=== PATIENT | female | born 1990 | race Caucasian/White ===

== ENCOUNTER 2019-07-30 12:48 | Emergency (ER) | payer SELFPAY | END 2019-07-30 16:30 | disposition home or self-care (01) | PROVIDERS: Emergency Provider Physician Assistant; Visit Provider Physician Assistant | DX: J00 Acute nasopharyngitis [common cold] (principal); F17.210 Nicotine dependence, cigarettes, uncomplicated; I10 Essential (primary) hypertension; J45.909 Unspecified asthma, uncomplicated ==

== ENCOUNTER 2019-09-20 21:44 | Emergency (ER) | payer SELFPAY ==
[2019-09-20 21:50] VITALS: BP 139/88; PULSE 117; RESP 18; TEMP 37.4; O2SAT 96
--- NOTE | 2019-09-20 21:56 | XR_ITS ---
WS: [id number] XR chest 1V portable [id number] REASON FOR EXAM: fever FINDINGS: The heart and mediastinal interfaces are normal. The lung chamorro are well aerated. No pneumonia, pleural effusion, pulmonary edema, pneumothorax, or m ass effect. The hilum and apices are normal. No osseous abnormalities. XR/XR chest 1V portable [id number] IMPRESSION: No active cardiopulmonary changes.
--- NOTE | 2019-09-20 22:41 | ED_ITS ---
HPI - Fever General: Chief Complaint: Fever Stated Complaint: FEVER Time Seen by Provider: 09/20/19 21:54 History of Present Illness: HPI Narrative: Patient is a 29-year-old female comes into the ED with fever cough that started today. Patient denies any nasal drainage or congestion or sick contacts. She has a past medical history of asthma and also smokes. She says tonight she started getting the chills and then developed a fever and she took Tylenol to bring fever down. She does have some mild body aches after having the fever and chills tonight. Her cough is productive sputum is clear. She states that she has a chronic cough because of smoking cigarettes. Denies any hematuria dysuria, abdominal pain, nausea, vomiting, shortness of breath. Associated symptoms: Reports chills; Deny abdominal pain, back/flank pain, chest pain, diarrhea, dysuria, headache(s), nasal congestion, nausea or vomiting Review of Systems Const: Reports: fever, chills and body aches; Denies: fatigue Eyes: Denies: change in vision or eye discomfort ENMT: Denies: throat pain, painful swallowing, nasal discharge or nasal congestion Card: Denies: chest pain, palpitations, edema, swelling of feet/ankles, shortness of breath on exertion or shortness of breath when lying down Resp: Reports: productive cough; Denies: shortness of breath or non-productive cough GI: Denies: abdominal pain, nausea, vomiting, diarrhea, constipation or blood in stool : Denies: flank pain, painful urination or blood in urine Musc: Denies: neck pain, back pain or extremity swelling Skin/Breast: Denies: rash or new lesion Neuro: Denies: headache, numbness in extremities or weakness in extremities [facility] ED PFSH: Social History Smoking and tobacco status: current every day smoker Physical Exam Const: COMMON NORMALS: oriented x3 HENMT: COMMON NORMALS: normocephalic HEAD & SCALP: normocephalic MOUTH: oral and palatal mucosa normal THROAT: posterior oropharynx normal and uvula midline Neck/C-Spine: COMMON NORMALS: supple GENERAL: Yes normal visual inspection Resp: COMMON NORMALS: normal respiratory effort, no retractions and no use of accessory muscles AUSCULTATION: wheezes expiratory wheezes (all throughout lung chamorro bilaterally) and inspiratory wheezes (all throughout lung chamorro bilaterally) Cardio: COMMON NORMALS: regular rate, regular rhythm, S1 normal heart sound, S2 normal heart sound, no gallops, no clicks, no murmurs and peripheral pulses 2+ throughout RATE: regular rate RHYTHM: regular rhythm HEART SOUNDS: S1 normal and S2 normal PERIPHERAL PULSES: pulses 2+ throughout GI: COMMON NORMALS: normal to inspection, nondistended, normoactive bowel sounds, soft to palpation, non-tender and no masses PALPATION: Yes soft : COMMON NORMALS: Yes no CVA tenderness BLADDER/KIDNEY EXAM: Yes no CVA tenderness Back/Pelvis: COMMON NORMALS: no CVA tenderness Extremity: COMMON NORMALS: normal to inspection Neuro: COMMON NORMALS: oriented x3 and moves all extremities Skin: COMMON NORMALS: no rashes or lesions noted GENERAL SKIN EXAM: no rashes or lesions noted and dry skin Course ED course: After DuoNeb treatment patients lungs sounded much better. Most of the wheezing was completely gone. Patient says she feels a lot better as well after breathing treatment. Vital Signs: Vital signs: Vital Signs Temperature 99.3 F 09/20/19 21:50 Pulse Rate 98 09/21/19 00:04 Respiratory Rate 18 09/21/19 00:04 Blood Pressure 139/88 09/20/19 21:50 Pulse Oximetry 98 09/21/19 00:04 MDM - Fever Lab Data: Attestation: I reviewed the patient's lab results. Labs: Lab Results 09/20/19 Range/Units 22:32 Influenza Type A A g Negative (Negative) POC Influenza B Ag Negative (Negative) Imaging Data^: CXR: Attestation: I personally reviewed and interpreted this imaging study as follows: My impression: No acute findings. Pending radiology review. Discharge Plan Discharge Patient Disposition: Home, Self-Care Clinical Impression: Viral infection, Bilateral wheezing Condition: Stable Prescriptions: No Action albuterol sulfate 90 mcg/actuation Hfa Aerosol Inhaler INHALATION PRN (Reason: Shortness Of Breath) RF: 0 Discharge Orders: Discharge Order (Routine); Ordered 09/20/19 Ordered By: Bill Somers Discharge Diet: Regular Discharge Activity: Resume usual activity Patient Instructions: Reactive Airways Disease (ED) Activity Restrictions/Additional Instructions: Follow-up with your PCP in 7-10 days for reevaluation. Continue using her albuterol inhaler as needed for wheezing or respiratory distress. Take Tylenol or Motrin for fevers. Drink plenty of fluids and stay hydrated. Discuss with your PCP potentially putting you on a longer acting inhaler. Discharge Date/Time: 09/21/19 00:32 Coding Level of Care Code ED Bench Inspector for Ko Fwpritesh Exam Comprehensive
[2019-09-20 23:37] LABS: Influenza A by IFA Negative (Negative); Influenza B by IFA Negative (Negative)
[2019-09-21 00:04] VITALS: PULSE 98; RESP 18; O2SAT 98
[2019-09-21] MEDS: ipratropium-albuterol 3 mL Neb INHALATION (00:04)
== END 2019-09-21 00:32 | disposition home or self-care (01) ==
PROVIDERS: Emergency Provider Physician Assistant
DX: B34.9 Viral infection, unspecified (principal); R06.2 Wheezing; F17.210 Nicotine dependence, cigarettes, uncomplicated
CPT/HCPCS: 71045; 87804; 94640; 99281; 99283

== ENCOUNTER 2019-09-27 19:38 | Emergency (ER) | payer SELFPAY ==
[2019-09-27 19:54] VITALS: BP 165/81; PULSE 80; RESP 18; TEMP 36.9; BMI 37.8
[2019-09-27 19:56] VITALS: BP 165/81; PULSE 80; RESP 18; TEMP 36.9; O2SAT 99; BMI 37.8
--- NOTE | 2019-09-27 20:21 | ED_ITS ---
Entered by Janina Cristina, acting as scribe for Jessenia Hylton MD Sep 27, 2019 19:38 HPI - Asthma General: Chief Complaint: Asthma Stated Complaint: COUGH Time Seen by Provider: 09/27/19 20:20 Source: patient and RN notes reviewed Mode of arrival: ambulatory Limitations: no limitations History of Present Illness: HPI Narrative: 29 yo female presents to ED with complaints of a cough. She had a virus for several days and was seen 1 week ago. She said her coughing has been worse, causing her to have asthma attacks. complaint: asthma attack Onset (ago): week(s) (1) Severity: moderate Context: other (recent virus) Associated symptoms: Reports productive cough; Deny chest pain or fever(s) Asthma History: adult onset Treatments Prior to Arrival: inhaled bronchodilator Related Data: Current Asthma Therapy: inhaled bronchodilator Review of Systems Const: Denies: fever, chills, body aches or change in appetite Eyes: Denies: blurry vision or eye discomfort ENMT: Denies: throat pain or dental pain Card: Denies: chest pain Resp: Reports: productive cough GI: Denies: abdominal pain, nausea, vomiting or diarrhea : Denies: painful urination Musc: Denies: neck pain or back pain Skin/Breast: Denies: rash Neuro: Denies: headache Psych: Denies: depression Devonte/Lymph: Denies: easy bruising All/Imm: Denies: hives PFS ED PFSH: Social History Smoking and tobacco status: current every day smoker Physical Exam Const: COMMON NORMALS: no apparent distress, oriented x3 and healthy appearing HENMT: COMMON NORMALS: normocephalic and head/scalp atraumatic HEAD & SCALP: normocephalic and atraumatic Eye: COMMON NORMALS: PERRL and EOMs intact bilaterally PUPIL: Yes PERRL Neck/C-Spine: COMMON NORMALS: full ROM and supple Chest: COMMONS NORMALS: inspection of chest normal and palpation of chest normal Resp: COMMON NORMALS: normal respiratory effort, no retractions, no use of accessory muscles and clear to auscultation bilaterally EFFORT & INSPECTION: Yes audible wheezes (diffuse) AUSCULTATION: clear to auscultation bilaterally Cardio: COMMON NORMALS: regular rate, regular rhythm and no murmurs RATE: regular rate RHYTHM: regular rhythm GI: COMMON NORMALS: normal to inspection, nondistended, normoactive bowel sounds, soft to palpation, non-tender and no masses PALPATION: Yes soft Extremity: COMMON NORMALS: normal to inspection and full ROM Neuro: COMMON NORMALS: oriented x3, moves all extremities and no focal motor deficits Psych: COMMON NORMALS: mental status grossly normal, thought process normal and cooperative THOUGHT PROCESS: normal thought process Skin: COMMON NORMALS: no rashes or lesions noted and no wounds GENERAL SKIN EXAM: no rashes or lesions noted Course Vital Signs: Vital signs: Vital Signs Temperature 98.5 F 09/27/19 19:56 Pulse Rate 78 09/27/19 20:50 Respiratory Rate 18 09/27/19 20:45 Blood Pressure 165/81 09/27/19 19:56 Pulse Oximetry 99 09/27/19 20:50 MDM - Asthma MDM Narrative: Medical decision making narrative: Patient presents here with bronchitis along with likely asthma exacerbation. Patient's x-ray here shows no signs of pneumonia and she is in no distress. We will place her on steroids along with nebulizer treatments and antibiotics. Patient is stable for discharge and is to return if worsening. Discharge Plan Discharge Patient Disposition: Home, Self-Care Clinical Impression: Bronchitis Condition: Stable Prescriptions: New Keflex 500 mg capsule 500 mg PO Q6H 7 Days Qty: 28 RF: 0 prednisone 50 mg tablet 50 mg PO DAILY Qty: 5 RF: 0 albuterol sulfate 0.63 mg/3 mL solution for nebulization 0.63 mg INHALATION Q8H PRN (Reason: shortness of breath or wheezing) Qty: 90 RF: 1 No Action albuterol sulfate 90 mcg/actuation Hfa Aerosol Inhaler 1 inh INHALATION PRN PRN (Reason: Shortness Of Breath) RF: 0 Discharge Orders: Discharge Order (Routine); Ordered 09/27/19 Ordered By: Jesseina Hylton Discharge Diet: Advance as tolerated Discharge Activity: Resume usual activity Patient Instructions: Acute Bronchitis (ED) Discharge Date/Time: 09/27/19 21:02 Coding Level of Care Code ED Clearance Representative for Chg Fwd Exam Comprehensive The documentation recorded by the Ibeth chapa Valerie R accurately reflects the service I personally performed and the decisions made by me, Jessenia Hylton MD Sep 27, 2019 19:38
--- NOTE | 2019-09-27 20:26 | XRR_ITS ---
PROCEDURE INFORMATION: Exam: XR Chest, 1 View Exam date and time: 09/27/2019 8:27 PM Age: 29 years old Clinical indication: Pain; Cough; Other: Back TECHNIQUE: Imaging protocol: XR of the chest Views: 1 view. COMPARISON: CR XR chest 1V portable [id number] 09/20/2019 10:15 PM FINDINGS: Lungs: Unremarkable. No consolidation. Pleural space: Unremarkable. No pleural effusion. No pneumothorax. Heart/Mediastinum: Unremarkable. No cardiomegaly. Bones/joints: Unremarkable. XR/XR chest 1V portable [id number] IMPRESSION: No acute findings.
[2019-09-27 20:45] VITALS: PULSE 74; RESP 18; O2SAT 98
[2019-09-27] MEDS: ipratropium-albuterol 3 mL Neb INHALATION (20:46)
[2019-09-27 20:50] VITALS: PULSE 78; O2SAT 99
[2019-09-27] MEDS: predniSONE 20 mg Tablet 60 MG PO (20:52)
[2019-09-27 21:00] VITALS: BP 158/74; PULSE 80; RESP 18; O2SAT 97
== END 2019-09-27 21:02 | disposition home or self-care (01) ==
PROVIDERS: Emergency Provider Emergency Medicine
DX: J40 Bronchitis, not specified as acute or chronic (principal); F17.200 Nicotine dependence, unspecified, uncomplicated
CPT/HCPCS: 71045; 94640; 99281; 99283; J7512; J7611

== ENCOUNTER 2020-01-17 20:42 | Emergency (ER) | payer SELFPAY ==
[2020-01-17 20:50] VITALS: BP 136/87; PULSE 66; RESP 18; TEMP 36.7; O2SAT 98; BMI 37.8
== END 2020-01-17 22:13 | disposition left against medical advice (07) ==
LOC: ER 21:22
PROVIDERS: Emergency Provider Family Medicine
DX: Z53.21 Procedure and treatment not carried out due to patient leaving prior to being seen by health care provider (principal)
CPT/HCPCS: 99281

== ENCOUNTER 2020-04-29 11:36 | Emergency (ER) | payer OTHER, SELFPAY ==
[2020-04-29 12:00] VITALS: BP 144/104; PULSE 89; RESP 18; TEMP 36.7; O2SAT 98; BMI 42.9
--- NOTE | 2020-04-29 12:22 | XRR_ITS ---
PROCEDURE INFORMATION: Exam: XR Chest, 1 View Exam date and time: 04/29/2020 12:35 PM Age: 29 years old Clinical indication: Cough and dyspnea; Additional info: Dyspnea/cough TECHNIQUE: Imaging protocol: XR of the chest Views: 1 view. COMPARISON: CR XR chest 1V portable [id number] 09/27/2019 8:27 PM FINDINGS: Lungs: Unremarkable. No consolidation. Pleural space: Unremarkable. No pleural effusion. No pneumothorax. Heart/Mediastinum: Unremarkable. No cardiomegaly. Bones/joints: Unremarkable. Stable exam since prior study XR/XR chest 1V portable [id number] IMPRESSION: No acute findings.
[2020-04-29 12:42] LABS: Rapid Strep A Test Negative (Negative)
--- NOTE | 2020-04-29 12:58 | W.ED.FEVER ---
HPI - Fever General: Chief Complaint: Fever Stated Complaint: SORE THROAT Time Seen by Provider: 04/29/20 12:15 History of Present Illness: HPI Narrative: 29-year-old female presents complaining of sore throat. She said some nasal discharge. She not had any shortness of breath, fever, vomiting or diarrhea. MD elicited complaint: other (Sore throat) Exacerbating factors: nothing Relieving factors: nothing Associated symptoms: Deny abdominal pain, flank pain, chills, chest pain, confusion, cough, diarrhea, dysuria, extremity pain, headache(s), myalgias, nasal congestion, nausea, night sweats, rash, rhinorrhea, short of breath, sinus pain, stiffness, sore throat, vaginal discharge, vomiting or weight loss Treatments prior to arrival fever: none Review of Systems Const: Denies: chills or night sweats ENMT: Denies: nasal congestion or sinus pain Card: Denies: chest pain Resp: Denies: dyspnea, productive cough or non-productive cough GI: Denies: abdominal pain, nausea, vomiting or diarrhea : Denies: flank pain, dysuria or vaginal discharge Musc: Denies: extremity pain Skin/Breast: Denies: rash or pruritus Neuro: Denies: headache(s) or confusion PFSH ED PFSH: Social History Smoking and tobacco status: current every day smoker Female Reproductive History: Date of last menstrual period: 03/17/20 Physical Exam Const: COMMON NORMALS: no acute distress GENERAL APPEARANCE: cooperative and comfortable ORIENTATION/CONSCIOUSNESS: Yes awake, Yes oriented to person, Yes oriented to place and Yes oriented to time HENMT: COMMON NORMALS: normocephalic, atraumatic and hearing grossly normal bilaterally HEAD & SCALP: normocephalic and atraumatic Eye: COMMON NORMALS: Equal, round and reactive pupils present, EOMs intact bilaterally, conjunctivae normal and no scleral icterus CONJUNCTIVA: Yes conjunctivae normal PUPIL: Yes Equal, round and reactive pupils present Neck/C-Spine: COMMON NORMALS: full ROM, no lymphadenopathy, supple and no JVD Lymph: LYMPHATIC: no lymphadenopathy noted and no lymphedema noted Resp: COMMON NORMALS: normal respiratory effort, No retractions, No use of accessory muscles and clear to auscultation bilaterally AUSCULTATION: clear to auscultation bilaterally Cardio: COMMON NORMALS: no JVD, regular rate, regular rhythm and No murmurs present (Cardio) RATE: regular rate RHYTHM: regular rhythm GI: COMMON NORMALS: Soft to palpation and No hepatosplenomegaly present AUSCULTATION: Yes normoactive bowel sounds PALPATION: Yes Soft to palpation, No Tenderness to palpation present (GI), No Guarding due to palpation present (GI) and Yes No hepatosplenomegaly present Extremity: COMMON NORMALS: normal to inspection, capillary refill normal, no clubbing, cyanosis or edema, no calf tenderness and no pedal edema Neuro: SENSORIUM/ORIENTATION: Yes oriented to person, Yes oriented to place and Yes oriented to time Skin: COMMON NORMALS: no rashes or lesions noted GENERAL SKIN EXAM: no rashes or lesions noted Course Vital Signs: Vital signs: Vital Signs Temperature 98.0 F 04/29/20 12:00 Pulse Rate 89 04/29/20 12:00 Respiratory Rate 18 04/29/20 12:00 Blood Pressure 144/104 04/29/20 12:00 Pulse Oximetry 98 04/29/20 12:00 MDM - Fever MDM Narrative: Medical decision making narrative: Strep negative. Suspect viral upper respiratory infection she has been screened for COVID. We will discharge her home her vital signs are stable advised patient to remain in self quarantine until results are available. Lab Data: Labs: Lab Results 04/29/20 04/29/20 Range/Units 12:15 12:31 SARS-CoV-2 RNA (RT -PCR) Not detected (NOT DETECTED) Group A Strep Rapi d Negative (Negative) Discharge Plan Discharge Patient Disposition: Home Clinical Impression: Pharyngitis, Suspected COVID-19 virus infection Condition: Stable Prescriptions: New dexamethasone 6 mg tablet 6 mg PO DAILY Qty: 7 RF: 0 No Action albuterol sulfate 90 mcg/actuation Hfa Aerosol Inhaler 2 inh INHALATION Q4H PRN (Reason: Shortness Of Breath) RF: 0 albuterol sulfate 0.63 mg/3 mL solution for nebulization 0.63 mg INHALATION Q8H PRN (Reason: shortness of breath or wheezing) Qty: 90 RF: 1 Multiple Vitamins Tablet 1 tab PO DAILY RF: 0 Vitamin B-12 1 tab PO DAILY RF: 0 Vitamin C 1 tab PO DAILY RF: 0 Discharge Orders: Discharge Order (Routine); Ordered 04/29/20 Ordered By: Josias Guerra Discharge Diet: Usual diet Discharge Activity: Increase activity as tolerated Activity Restrictions/Additional Instructions: Your suspected of having COVID-19. Please self quarantine until results are available. Stand Alone Forms: Work/School Release Discharge Date/Time: 04/29/20 13:42 Coding Level of Care Code ED Psychologist Developmental for Petrag Fwd Exam Comprehensive
[2020-04-30 17:17] LABS: Quest SARS-CoV-2 RNA NOT DETECTED (NOT DETECTED)
== END 2020-04-29 13:42 | disposition home or self-care (01) ==
PROVIDERS: Emergency Medicine; Emergency Provider Family Medicine
DX: J02.9 Acute pharyngitis, unspecified (principal); F17.219 Nicotine dependence, cigarettes, with unspecified nicotine-induced disorders; Z20.828 Contact with and (suspected) exposure to other viral communicable diseases
CPT/HCPCS: 12345; 71045; 87081; 87635; 87880; 99281; 99283

== ENCOUNTER 2020-05-21 12:02 | Emergency (ER) | payer SELFPAY ==
[2020-05-21 12:06] VITALS: BP 145/111; PULSE 71; RESP 14; TEMP 36.5; O2SAT 98; BMI 38.6
--- NOTE | 2020-05-21 12:22 | XR_ITS ---
WS: [id number] Right foot, 3 views, 05/21/2020 Clinical Data: injury Comparison: None. Findings: No fractures or dislocations are seen. No bone destruction or erosion is noted. The joint spaces and soft tissues are normal. There is a plantar spur and an Achilles spur. XR/XR foot RT min 3V* [id number] Impression: Negative right foot.
--- NOTE | 2020-05-21 12:44 | W.ED.EXTPRO ---
HPI - Extremity Problem General: Chief complaint: Extremity Injury, Lower Stated complaint: R 2ND TOE PROBLEM Time Seen by Provider: 05/21/20 12:12 Source: patient and family Mode of arrival: ambulatory Limitations: no limitations History of Present Illness: HPI Narrative: Janie is a nice 29-year-old female who comes in complaining of right second toe pain after she dropped a can on it last night. She has abrasion to the area that is bleeding intermittently. She has any numbness tingling or weakness. She is concerned as her fracture of that is why she comes in today. Review of Systems General: Reports: Other (Unremarkable other than as noted in HPI.) PFS ED PFSH: Medical History Asthma Social History Smoking and tobacco status: current every day smoker Female Reproductive History: Date of last menstrual period: 03/17/20 Physical Exam Extremity: NARRATIVE EXTREMITY EXAM: Right second toe with abrasion present. Patient able to freely move the toe. Course Vital Signs: Vital signs: Vital Signs Temperature 97.7 F 05/21/20 12:06 Pulse Rate 71 05/21/20 12:06 Respiratory Rate 14 05/21/20 12:06 Blood Pressure 145/111 05/21/20 12:06 Pulse Oximetry 98 05/21/20 12:06 MDM - Extremity (Nontraumatic) MDM Narrative: Medical decision making narrative: Patient has no sign of fracture on x-ray. He is able to ambulate with out difficulty. Given restriction of abrasion carriage agrees to follow-up with her doctor or return here if needed. Discharge Plan Discharge Patient Disposition: Home Clinical Impression: Abrasion Condition: Stable Prescriptions: No Action albuterol sulfate 90 mcg/actuation Hfa Aerosol Inhaler 2 inh INHALATION Q4H PRN (Reason: Shortness Of Breath) RF: 0 albuterol sulfate 0.63 mg/3 mL solution for nebulization 0.63 mg INHALATION Q8H PRN (Reason: shortness of breath or wheezing) Qty: 90 RF: 1 Multiple Vitamins Tablet 1 tab PO DAILY RF: 0 Vitamin B-12 1 tab PO DAILY RF: 0 Vitamin C 1 tab PO DAILY RF: 0 dexamethasone 6 mg tablet 6 mg PO DAILY Qty: 7 RF: 0 Discharge Orders: Discharge Order (Routine); Ordered 05/21/20 Ordered By: Gemma David Referrals: Rodo Leahy DPM [Physician] - 1-3 days Discharge Diet: Advance as tolerated Discharge Activity: Increase activity as tolerated Patient Instructions: Abrasion (ED) Activity Restrictions/Additional Instructions: Please return to the ER immediately for any of the signs or symptoms listed on your discharge instruction sheets, worsening/changing of your symptoms, you are not getting better as quickly as expected, or for ANY other cause or concerns. Discharge Date/Time: 05/21/20 13:01 Coding Level of Care Code ED Editorial Manager for Ko Cabrera
[2020-05-21] MEDS: bacitracin ointment Pkt 1 EACH TOPICAL (12:58)
== END 2020-05-21 13:01 | disposition home or self-care (01) ==
PROVIDERS: Emergency Provider Emergency Medicine
DX: S90.414A Abrasion, right lesser toe(s), initial encounter (principal); F17.210 Nicotine dependence, cigarettes, uncomplicated; W20.8XXA Other cause of strike by thrown, projected or falling object, initial encounter
CPT/HCPCS: 12345; 73630; 99281; 99283

== ENCOUNTER → 2020-10-14 15:18 | Outpatient (BNVA) | payer SELFPAY | PROVIDERS: PCP Nurse Practitioner Family; Visit Provider Specialist | DX: R20.0 Anesthesia of skin (principal); R20.2 Paresthesia of skin; G56.01 Carpal tunnel syndrome, right upper limb; F17.210 Nicotine dependence, cigarettes, uncomplicated | CPT/HCPCS: 95908 ==

== ENCOUNTER 2020-12-02 17:26 | Emergency (ER) | payer SELFPAY ==
[2020-12-02 17:47] VITALS: BP 136/94; PULSE 91; RESP 18; TEMP 36.8; O2SAT 98; BMI 42.9
--- NOTE | 2020-12-02 18:56 | XRR_ITS ---
PROCEDURE INFORMATION: Exam: XR Chest Exam date and time: 12/02/2020 6:59 PM Age: 30 years old Clinical indication: Cough and fever and shortness of breath TECHNIQUE: Imaging protocol: XR of the chest. Views: 2 views. COMPARISON: CR XR chest 1V portable [id number] 04/29/2020 12:26 PM FINDINGS: Lungs: Well inflated and clear. Pleural spaces: Unremarkable. No pleural effusion. No pneumothorax. Heart/Mediastinum: The cardiac shadow is normal in size. Bones/joints: No acute abnormality. XR/XR chest 2V* [id number] IMPRESSION: No acute findings.
--- NOTE | 2020-12-02 19:02 | W.ED.GENADLT ---
HPI - General Adult General: Chief complaint: General Medical Stated complaint: Sore Throat/Congestion/Sharp Pains on R. Side Time Seen by Provider: 12/02/20 18:56 History of Present Illness: HPI narrative: Patient is a 30-year-old female comes to the ED with cough and sinus congestion. Patient has past medical history of asthma and has inhalers at home symptoms. started approximately 2 days ago. She describes having a dry cough and wheezing. She coughs but is unable to cough any sputum. She also says she has bad allergies and has had a lot of nasal congestion and drainage over the past couple days. She says she is developing a sore throat as well. Denies any fever, chills, body aches. Associated symptoms: Deny chest pain, dyspnea, headache(s), nausea, rash, palpitations or vomiting Review of Systems Const: Denies: fever(s), chills or fatigue Eyes: Denies: change in vision or eye discomfort ENMT: Reports: throat pain, nasal discharge and nasal congestion; Denies: odynophagia Card: Denies: chest pain, palpitations, edema, swelling of feet/ankles, dyspnea on exertion or orthopnea Resp: Reports: non-productive cough and wheezing; Denies: dyspnea or productive cough GI: Denies: abdominal pain, nausea, vomiting, diarrhea, constipation or hematochezia : Denies: flank pain, dysuria or hematuria Musc: Denies: neck pain, back pain or extremity swelling Skin/Breast: Denies: rash or new lesions Neuro: Denies: headache(s), numbness in extremities or weakness in extremities [facility] ED PFSH: Medical History Asthma Social History Smoking and tobacco status: current every day smoker Female Reproductive History: Date of last menstrual period: 03/17/20 Physical Exam Const: COMMON NORMALS: no acute distress, patient oriented x3 and alert GENERAL APPEARANCE: cooperative and comfortable HENMT: COMMON NORMALS: normocephalic HEAD & SCALP: normocephalic MOUTH: Normal oral and palatal mucosa present THROAT: posterior oropharynx normal and uvula midline Neck/C-Spine: COMMON NORMALS: supple GENERAL: Yes normal visual inspection Resp: COMMON NORMALS: normal respiratory effort, No retractions and No use of accessory muscles AUSCULTATION: wheezes expiratory wheezes (Throughout lungs bilaterally.) Cardio: COMMON NORMALS: regular rate, regular rhythm, S1 normal heart sound present, S2 normal heart sound present, No gallops present (Cardio), No clicks present (Cardio), No murmurs present (Cardio) and Peripheral pulses 2+ throughout RATE: regular rate RHYTHM: regular rhythm HEART SOUNDS: S1 normal heart sound present and S2 normal heart sound present PERIPHERAL PULSES: Peripheral pulses 2+ throughout GI: COMMON NORMALS: Normal to inspection, nondistended, normoactive bowel sounds present, Soft to palpation, non-tender and no masses PALPATION: Yes Soft to palpation : COMMON NORMALS: Yes no CVA tenderness BLADDER/KIDNEY EXAM: Yes no CVA tenderness Back/Pelvis: COMMON NORMALS: no CVA tenderness Extremity: COMMON NORMALS: normal to inspection Neuro: COMMON NORMALS: patient oriented x3 and moves all extremities SENSORIUM/ORIENTATION: Yes alert Skin: GENERAL SKIN EXAM: dry skin Course Reevaluation(s): Reevaluation #1: After patient received breathing treatment her lung sounds greatly improved and her wheezing improved greatly. Patient says she is feeling a lot better as well. Vital Signs: Vital signs: Vital Signs Temperature 98.2 F 12/02/20 20:36 Pulse Rate 78 12/02/20 20:36 Respiratory Rate 16 12/02/20 20:36 Blood Pressure 128/78 12/02/20 20:36 Pulse Oximetry 99 12/02/20 20:36 MDM - General Adult MDM Narrative: Medical decision making narrative: Patient is a 30-year-old female comes to the ED with nasal congestion drainage, dry cough and a sore throat. Patient denies any fever or chills. She has a history of asthma and seasonal allergies. Exam?patient had expiratory wheezing throughout lungs bilaterally. Chest x-ray shows no acute findings. Strep test negative. Patient was given a DuoNeb breathing treatment and Solu-Medrol while here in the ED and her wheezing and breathing greatly improved. Patient was diagnosed with asthma with exacerbation and allergic rhinitis. She was discharged home with a prescription for prednisone and I told her to continue using her albuterol inhaler as needed and her allergy medications as well. Follow-up with PCP in 7 to 10 days for reevaluation. Return to ED precautions given. Patient understood agree with plan. Lab Data: Attestation: I reviewed the patient's lab results. Labs: Lab Results 12/02/20 Range/Units 19:20 Group A Strep Rapi d Negative (Negative) Imaging Data^: CXR: Attestation: I personally reviewed and interpreted this imaging study as follows: Radiologist's impression: [address] [address] XRay Report Signed Patient: Janie Medrano Unit #: [id number] : 1990 Age/Sex: 30 / F ADM Date: 12/02/20 Loc: ER Room/Bed: Attending Dr: Ordering Provider/Ordering MD: Bill Somers Date of Service: 12/02/20 Procedure(s): XR chest 2V* 80823 Accession Number(s): [id number] Report Number: [id number] PROCEDURE INFORMATION: Exam: XR Chest Exam date and time: 12/02/2020 6:59 PM Age: 30 years old Clinical indication: Cough and fever and shortness of breath TECHNIQUE: Imaging protocol: XR of the chest. Views: 2 views. COMPARISON: CR XR chest 1V portable [id number] 04/29/2020 12:26 PM FINDINGS: Lungs: Well inflated and clear. Pleural spaces: Unremarkable. No pleural effusion. No pneumothorax. Heart/Mediastinum: The cardiac shadow is normal in size. Bones/joints: No acute abnormality. XR/XR chest 2V* [id number] IMPRESSION: No acute findings. Dictated By: Markus Whiting Signed By: Markus Whiting Signed Date/Time: 12/02/201931 DD/ 29 Discharge Plan Discharge Patient Disposition: Home Clinical Impression: Asthma with exacerbation Qualifiers: Asthma severity: mild Asthma persistence: intermittent Qualified Code(s): J45.21 - Mild intermittent asthma with (acute) exacerbation Allergic rhinitis Qualifiers: Allergic rhinitis trigger: pollen Allergic rhinitis seasonality: seasonal Qualified Code(s): J30.1 - Allergic rhinitis due to pollen Condition: Stable Prescriptions: New prednisone 50 mg tablet 50 mg PO DAILY 5 Days Qty: 5 RF: 0 No Action montelukast [Singulair] 10 mg tablet 10 mg PO DAILY@2129 RF: 0 albuterol sulfate 90 mcg/actuation Hfa Aerosol Inhaler 2 inh INHALATION Q4H PRN (Reason: Shortness Of Breath) RF: 0 albuterol sulfate 0.63 mg/3 mL solution for nebulization 0.63 mg INHALATION Q8H PRN (Reason: shortness of breath or wheezing) Qty: 90 RF: 1 multivitamin [Multiple Vitamins] Tablet 1 tab PO DAILY RF: 0 Vitamin B-12 1 tab PO DAILY RF: 0 Vitamin C 1 tab PO DAILY RF: 0 venlafaxine 150 mg Tablet Extended Release 24hr 150 mg PO DAILY@2129 RF: 0 Discharge Orders: Discharge ED (Routine); Ordered 12/02/20 Ordered By: Bill Somers Referrals: Shima Tavarez FNP [Primary Care Provider] - Discharge Diet: Regular Discharge Activity: Resume usual activity Patient Instructions: Asthma (ED), Allergic Rhinitis (ED) Activity Restrictions/Additional Instructions: Follow-up with medical provider as directed in 7 to 10 days for reevaluation. Take medications as prescribed. Continue taking your previously prescribed allergy meds to help with nasal congestion and drainage. Return to the ER or your medical provider if condition worsens. Please read and understand discharge instructions. Thank you for choosing [facility] for your healthcare needs today. Please realize this is an emergency room and that we are providing you with a medical screening exam and this may not be complete and all inclusive of all the testing and or work up that you may need to determine your ailment or severity of your illness. It is very important that you follow up as instructed or that you return to the Emergency Department should you have concerns or if your condition changes or worsens in any way. Coding Level of Care Code ED Wired Sweatband Cutter for Ko Fwpritesh Exam Comprehensive
[2020-12-02 19:45] LABS: Rapid Strep A Test Negative (Negative)
[2020-12-02 19:52] VITALS: BP 132/60; PULSE 80; RESP 18; O2SAT 96
[2020-12-02] MEDS: ipratropium-albuterol 3 mL Neb 6 ML INHALATION (19:54)
[2020-12-02 19:55] VITALS: PULSE 79; RESP 17; O2SAT 98
[2020-12-02 20:00] VITALS: PULSE 81
[2020-12-02 20:36] VITALS: BP 128/78; PULSE 78; RESP 16; TEMP 36.8; O2SAT 99
== END 2020-12-02 20:38 | disposition home or self-care (01) ==
PROVIDERS: Emergency Provider Physician Assistant; PCP Nurse Practitioner Family
DX: J45.21 Mild intermittent asthma with (acute) exacerbation (principal); J30.1 Allergic rhinitis due to pollen; F17.210 Nicotine dependence, cigarettes, uncomplicated
CPT/HCPCS: 71046; 87081; 87880; 94640; 96372; 99283; J2930

== ENCOUNTER 2020-12-06 23:39 | Emergency (ER) | payer SELFPAY ==
[2020-12-06 23:45] VITALS: BP 159/96; PULSE 80; RESP 16; TEMP 36.7; O2SAT 99; BMI 42.9
--- NOTE | 2020-12-06 23:59 | W.ED.ASTHMA ---
HPI - Asthma General: Chief Complaint: Asthma Stated Complaint: asthma Time Seen by Provider: 12/06/20 23:59 History of Present Illness: HPI Narrative: Patient is having exacerbation of her asthma. She was in her 3 days ago responded well to DuoNeb treatments. Was given steroid shot and placed on steroids and she said she just not improved much since then. Said she did albuterol treatments at home and those have not helped her today. Allergies have been pretty bad. complaint: asthma attack Onset (ago): day(s) Severity: moderate Context: allergen exposure Associated symptoms: Reports non-productive cough; Deny chest pain or fever(s) Asthma History: childhood onset and history of prior ED visit Treatments Prior to Arrival: inhaled bronchodilator and other (Oral steroids) Review of Systems Const: Denies: fever(s), chills or body aches Eyes: Denies: change in vision or blurry vision ENMT: Denies: throat pain or nasal congestion Card: Denies: chest pain or dyspnea on exertion Resp: Reports: non-productive cough and wheezing GI: Denies: abdominal pain, nausea or vomiting Musc: Denies: extremity pain Skin/Breast: Denies: rash Neuro: Denies: headache(s) Psych: Denies: anxiety or depression Devonte/Lymph: Denies: easy bruising PFSH ED PFSH: Medical History (Updated 12/07/20 @ 00:23 by ROXIE Lomas) Asthma Social History Smoking and tobacco status: current every day smoker Female Reproductive History: Date of last menstrual period: 10/12/20 Physical Exam Const: COMMON NORMALS: no acute distress, average body habitus and patient oriented x3 HENMT: COMMON NORMALS: normocephalic HEAD & SCALP: normal to inspection and normocephalic FACE & SINUS: normal facial exam Eye: COMMON NORMALS: conjunctivae normal GENERAL EYE: appearance normal, both eyes and all related structures CONJUNCTIVA: Yes conjunctivae normal Neck/C-Spine: COMMON NORMALS: no JVD Chest: COMMONS NORMALS: normal inspection of the chest Resp: COMMON NORMALS: normal respiratory effort EFFORT & INSPECTION: Yes able to speak in complete sentences, Yes symmetric chest movement, No tachypneic, No respiratory distress, No pursed lip breathing, No labored, No grunting, No stridor and No uses accessory muscles AUSCULTATION: rales Cardio: COMMON NORMALS: no JVD, regular rate and regular rhythm RATE: regular rate RHYTHM: regular rhythm GI: COMMON NORMALS: Normal to inspection, nondistended, normoactive bowel sounds present Extremity: COMMON NORMALS: normal to inspection and full ROM Neuro: COMMON NORMALS: patient oriented x3 Course Vital Signs: Vital signs: Vital Signs Temperature 98.0 F 12/06/20 23:45 Pulse Rate 87 12/07/20 00:37 Respiratory Rate 18 12/07/20 00:37 Blood Pressure 126/94 12/07/20 00:37 Pulse Oximetry 96 12/07/20 00:37 MDM - Asthma MDM Narrative: Medical decision making narrative: Patient doing much better after breathing treatment moving air well still has slight cough does 100% better. Patient instructed to wear mask out while outside use steroid inhaler during allergy season. Mixed breathing treatments for this week. Start Flonase inhaler. Discharge Plan Discharge Patient Disposition: Home Clinical Impression: Asthma Qualifiers: Asthma severity: mild Asthma persistence: intermittent Asthma complication type: with acute exacerbation Qualified Code(s): J45.21 - Mild intermittent asthma with (acute) exacerbation Allergic rhinitis Qualifiers: Allergic rhinitis trigger: pollen Allergic rhinitis seasonality: seasonal Qualified Code(s): J30.1 - Allergic rhinitis due to pollen Condition: Stable Prescriptions: New Flonase Allergy Relief 50 mcg/actuation spray,suspension 2 spray intranasal DAILY Qty: 16 RF: 0 ipratropium bromide 0.02 % solution 2.5 ml inhalation Q6H PRN (Reason: shortness of breath or wheezing) Qty: 62.5 RF: 0 Flovent HFA 110 mcg/actuation HFA aerosol inhaler 2 inh inhalation BID PRN (Reason: asthma) Qty: 12 RF: 0 No Action montelukast [Singulair] 10 mg tablet 10 mg PO DAILY@2130 RF: 0 albuterol sulfate 90 mcg/actuation Hfa Aerosol Inhaler 2 inh INHALATION Q4H PRN (Reason: Shortness Of Breath) RF: 0 albuterol sulfate 0.63 mg/3 mL solution for nebulization 0.63 mg INHALATION Q8H PRN (Reason: shortness of breath or wheezing) Qty: 90 RF: 1 multivitamin [Multiple Vitamins] Tablet 1 tab PO DAILY RF: 0 Vitamin B-12 1 tab PO DAILY RF: 0 Vitamin C 1 tab PO DAILY RF: 0 venlafaxine 150 mg Tablet Extended Release 24hr 150 mg PO DAILY@2130 RF: 0 prednisone 50 mg tablet 50 mg PO DAILY 5 Days Qty: 5 RF: 0 Discharge Orders: Discharge ED (Routine); Ordered 12/07/20 Ordered By: Damien Rosenberg Referrals: Shima Tavarez, DISTRICT ADMINISTRATOR [Primary Care Provider] - Discharge Diet: Usual diet Discharge Activity: Increase activity as tolerated Patient Instructions: Asthma (ED), Allergic Rhinitis (ED) Activity Restrictions/Additional Instructions: Follow-up with medical provider as directed. Take medications as prescribed. Return to the ER or your medical provider if condition worsens. Please read and understand discharge instructions. If any questions ask please. Wear a mask while outdoors during allergy season. Coding Level of Care Code ED Tool And Machine Maintainer for Ko Fwd Exam Comprehensive
--- NOTE | 2020-12-07 00:04 | XRR_ITS ---
PROCEDURE INFORMATION: Exam: XR Chest Exam date and time: 12/07/2020 12:16 AM Age: 30 years old Clinical indication: Condition or disease; Lung condition and disease; Asthma; Severity not specified; Additional info: Asthma attack TECHNIQUE: Imaging protocol: XR of the chest. Views: 1 view. COMPARISON: CR XR chest 2V* [id number] 12/02/2020 7:04 PM FINDINGS: Lungs: Unremarkable. No consolidation. Pleural spaces: Unremarkable. No pleural effusion. No pneumothorax. Heart/Mediastinum: Unremarkable. No cardiomegaly. Bones/joints: Unremarkable. XR/XR chest 1V portable [id number] IMPRESSION: No acute findings.
[2020-12-07] MEDS: ipratropium-albuterol 3 mL Neb INHALATION (00:09)
[2020-12-07 00:10] VITALS: PULSE 79; RESP 20; O2SAT 99
[2020-12-07 00:14] VITALS: PULSE 77; RESP 18; O2SAT 97
[2020-12-07 00:37] VITALS: BP 126/94; PULSE 87; RESP 18; O2SAT 96
== END 2020-12-07 00:41 | disposition home or self-care (01) ==
PROVIDERS: Emergency Provider Nurse Practitioner Family; PCP Nurse Practitioner Family
DX: J45.21 Mild intermittent asthma with (acute) exacerbation (principal); J30.1 Allergic rhinitis due to pollen; F17.210 Nicotine dependence, cigarettes, uncomplicated
CPT/HCPCS: 71045; 94640; 99283

== ENCOUNTER 2020-12-21 07:12 | Emergency (ER) | payer SELFPAY ==
[2020-12-21 07:16] VITALS: BP 155/127; PULSE 87; RESP 18; TEMP 36.6; O2SAT 96; BMI 42.9
--- NOTE | 2020-12-21 07:20 | XR_ITS ---
WS: [id number] Exam: XR ankle RT min 3V* [id number] Date/Time of Exam: 12/21/2020 7:26 AM Reason For Exam: injury/pain/swelling Findings: Multiple views of the ankle reveal no fracture or displacements of bone. No soft tissue swelling is present. There are no periosteal reactions noted. The talus and calcaneus are in adequate position. The joint space is smooth and equidistant. XR/XR ankle RT min 3V* [id number] IMPRESSION: Negative right ankle.
--- NOTE | 2020-12-21 07:20 | ED_ITS ---
HPI - Extremity Injury (Lower) General: Chief Complaint: Extremity Injury, Lower Stated Complaint: RIGHT FOOT PAIN Time Seen by Provider: 12/21/20 07:13 Source: patient Mode of arrival: wheelchair Limitations: no limitations History of Present Illness: HPI Narrative: Patient is a 30-year-old female who presents to ED today for evaluation of a right ankle and right foot injury that she sustained yesterday evening during an all-night skate at [facility]. Patient states while skating her ankle twisted and inverted. She was ambulatory on the extremity immediately following the event but has progressively noticed increased pain and swelling making ambulation difficult. No other injuries or complaints at this time. complaint: ankle injury and foot injury Onset (ago): hour(s) Type of Injury: inversion Place: other ([facility]) Severity: moderate Relieving factors: immobilization Exacerbating factors: weight bearing, movement and palpation Context: other (twisted) Associated symptoms: Reports no associated symptoms Other symptoms: none Review of Systems Musc: Reports: extremity pain (R foot), extremity swelling (R foot), joint pain (R ankle) and joint swelling (R ankle); Denies: neck pain, back pain, joint redness or joint warmth Neuro: Reports: difficulty walking (secondary to pain); Denies: numbness in extremities or sensory changes PFSH ED PFSH: Medical History (Updated 12/21/20 @ 07:44 by BRIGIDO Root) Asthma Social History Smoking and tobacco status: current every day smoker Female Reproductive History: Date of last menstrual period: 10/12/20 Physical Exam Const: COMMON NORMALS: no acute distress, patient oriented x3, no limitations and alert GENERAL APPEARANCE: cooperative NUTRITIONAL APPEARANCE: obese ORIENTATION/CONSCIOUSNESS: Yes awake, Yes oriented to person, Yes oriented to place and Yes oriented to time Extremity: GENERAL: Yes normal exam except as noted RIGHT LOWER EXTREMITY: Yes foot & digits (TTP mainly to lateral malleolus; swelling noted) Right ankle: Yes neurovascular exam (normal) and Yes foot & digits (TTP dorsolateral R foot with minimal swelling; no deformities ) Right foot and digits: Yes neurovascular exam (normal) Neuro: COMMON NORMALS: patient oriented x3 SENSORIUM/ORIENTATION: Yes alert, Yes oriented to person, Yes oriented to place and Yes oriented to time Course Vital Signs: Vital signs: Vital Signs Temperature 98.7 F 12/21/20 07:50 Pulse Rate 74 12/21/20 07:50 Respiratory Rate 18 12/21/20 07:50 Blood Pressure 141/74 12/21/20 07:50 Pulse Oximetry 97 12/21/20 07:50 MDM - Extremity Injury (Lower) Imaging Data^: XR R ankle: Radiologist's impression: [employer] [address] [place] [address] XRay Report Signed Patient: Janie Medrano Unit #: [id number] : 1990 Age/Sex: 30 / F ADM Date: 12/21/20 Loc: ER Room/Bed: Attending Dr: Ordering Provider/Ordering MD: Carisa Dudley Date of Service: 12/21/20 Procedure(s): XR ankle RT min 3V* [id number] Accession Number(s): [id number] Report Number: [id number] WS: [id number] Exam: XR ankle RT min 3V* [id number] Date/Time of Exam: 12/21/2020 7:26 AM Reason For Exam: injury/pain/swelling Findings: Multiple views of the ankle reveal no fracture or displacements of bone. No soft tissue swelling is present. There are no periosteal reactions noted. The talus and calcaneus are in adequate position. The joint space is smooth and equidistant. XR/XR ankle RT min 3V* [id number] IMPRESSION: Negative right ankle. Dictated By: Nabeel Snyder DO Signed By: Nabeel Snyder DO Signed Date/Time: 12/21/20 0808 DD/ 0807 XR R foot: Radiologist's impression: [employer] [address] [address] XRay Report Signed Patient: Janie Medrano Unit #: [id number] : 1990 Age/Sex: 30 / F ADM Date: 12/21/20 Loc: ER Room/Bed: Attending Dr: Ordering Provider/Ordering MD: Carisa Dudley Date of Service: 12/21/20 Procedure(s): XR foot RT min 3V* [id number] Accession Number(s): [id number] Report Number: [id number] WS: [id number] Exam: XR foot RT min 3V* [id number] Date/Time of Exam: 12/21/2020 7:26 AM Reason For Exam: swelling/pain/injury No fracture or dislocation. No soft tissue foreign bodies are seen. Calcaneal spurs. XR/XR foot RT min 3V* [id number] IMPRESSION: 1. No acute fracture identified. Dictated By: Nabeel Snyder DO Signed By: Nabeel Snyder DO Signed Date/Time: 12/21/20808 DD/ 7 Discharge Plan Discharge Patient Disposition: Home Clinical Impression: Right ankle sprain Qualifiers: Encounter type: initial encounter Involved ligament of ankle: unspecified ligament Qualified Code(s): S93.401A - Sprain of unspecified ligament of right ankle, initial encounter Condition: Stable Prescriptions: No Action montelukast [Singulair] 10 mg tablet 10 mg PO DAILY@2129 RF: 0 albuterol sulfate 90 mcg/actuation Hfa Aerosol Inhaler 2 inh INHALATION Q4H PRN (Reason: Shortness Of Breath) RF: 0 albuterol sulfate 0.63 mg/3 mL solution for nebulization 0.63 mg INHALATION Q8H PRN (Reason: shortness of breath or wheezing) Qty: 90 RF: 1 multivitamin [Multiple Vitamins] Tablet 1 tab PO DAILY RF: 0 Vitamin B-12 1 tab PO DAILY RF: 0 Vitamin C 1 tab PO DAILY RF: 0 venlafaxine 150 mg Tablet Extended Release 24hr 150 mg PO DAILY@2129 RF: 0 Flonase Allergy Relief 50 mcg/actuation spray,suspension 2 spray intranasal DAILY Qty: 16 RF: 0 ipratropium bromide 0.02 % solution 2.5 ml inhalation Q6H PRN (Reason: shortness of breath or wheezing) Qty: 62.5 RF: 0 Flovent HFA 110 mcg/actuation HFA aerosol inhaler 2 inh inhalation BID PRN (Reason: asthma) Qty: 12 RF: 0 Discharge Orders: Discharge ED (Routine); Ordered 05/24/21 Ordered By: Carisa Dudley Referrals: Shima Tavarez, [facility] WILDLIFE SPECIALIST [Primary Care Provider] - Patient Instructions: Ankle Sprain (ED), RICE Therapy (ED) Activity Restrictions/Additional Instructions: Please follow up with primary care in one week if ankle does not improve or pain persists. Coding Level of Care Code ED Compounding Scaler for Petrag Fwd Exam Expanded Problem Focused
--- NOTE | 2020-12-21 07:20 | XR_ITS ---
WS: [id number] Exam: XR foot RT min 3V* [id number] Date/Time of Exam: 12/21/2020 7:26 AM Reason For Exam: swelling/pain/injury No fracture or dislocation. No soft tissue foreign bodies are seen. Calcaneal spurs. XR/XR foot RT min 3V* [id number] IMPRESSION: 1. No acute fracture identified.
[2020-12-21 07:22] VITALS: BP 160/111; PULSE 74; RESP 18; O2SAT 97
[2020-12-21 07:50] VITALS: BP 141/74; PULSE 74; RESP 18; TEMP 37.1; O2SAT 97
== END 2020-12-21 07:59 | disposition home or self-care (01) ==
PROVIDERS: Emergency Provider Physician Assistant; PCP Nurse Practitioner Family
DX: S93.401A Sprain of unspecified ligament of right ankle, initial encounter (principal); Y93.51 Activity, roller skating (inline) and skateboarding
CPT/HCPCS: 73610; 73630; 99283; E0114

== ENCOUNTER 2021-01-25 06:53 | Emergency (ER) | payer SELFPAY ==
[2021-01-25 07:13] VITALS: BP 134/100; PULSE 73; RESP 18; TEMP 36.6; O2SAT 97; BMI 44.6
--- NOTE | 2021-01-25 07:57 | ED_ITS ---
HPI - COVID General: Chief Complaint: COVID symptoms Stated Complaint: sob,headache, covid exposure Time Seen by Provider: 01/25/21 07:49 Triage information: No fever, cough or shortness of breath . Exposure to COVID + person last 14 days History of Present Illness: HPI Narrative: 30-year-old female presents emergency room complaining of shortness of breath and cough headache malaise and fever that began over the last 24 hours. 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 She does have a history of asthma and is obese. MD complaint: reported COVID exposure Prior covid testing: no COVID 19 common symptoms: positive fever(s), chills, cough, non-productive cough, dyspnea, fatigue, body aches, headache(s), nasal congestion and nausea COVID 19 other sytmptoms: negative chest pain or requiring oxygen Onset (ago): hour(s) Severity: mild Pertinent comorbid conditions: COPD/respiratory disease and obesity Treatment prior to arrival: none COVID Results: SARS-CoV-2 RNA (RT-PCR) Not detected (NOT DETECTED) 04/29/20 12:31 04/29/20 Review of Systems Const: Reports: fever(s), chills, body aches and fatigue ENMT: Reports: nasal congestion Card: Denies: chest pain Resp: Reports: dyspnea and non-productive cough GI: Reports: nausea : Denies: flank pain, difficulty voiding, dysuria, urinary frequency or urinary urgency Skin/Breast: Denies: rash or pruritus Neuro: Reports: headache(s) PFS ED PFSH: Medical History Asthma Social History Smoking and tobacco status: current every day smoker Female Reproductive History: Date of last menstrual period: 10/12/20 Physical Exam Const: COMMON NORMALS: no acute distress GENERAL APPEARANCE: cooperative and comfortable ORIENTATION/CONSCIOUSNESS: Yes awake, Yes oriented to person, Yes oriented to place and Yes oriented to time HENMT: COMMON NORMALS: normocephalic, atraumatic, hearing grossly normal bilaterally and external ears normal HEAD & SCALP: normocephalic and atraumatic EXTERNAL EAR: Yes external ears normal Neck/C-Spine: COMMON NORMALS: no JVD Resp: COMMON NORMALS: normal respiratory effort, No retractions, No use of accessory muscles and clear to auscultation bilaterally AUSCULTATION: clear to auscultation bilaterally Cardio: COMMON NORMALS: no JVD, regular rate, regular rhythm and No murmurs present (Cardio) RATE: regular rate RHYTHM: regular rhythm GI: COMMON NORMALS: Soft to palpation and No hepatosplenomegaly present AUSCULTATION: Yes normoactive bowel sounds PALPATION: Yes Soft to palpation, No Tenderness to palpation present (GI), No Guarding due to palpation present (GI) and Yes No hepatosplenomegaly present Extremity: COMMON NORMALS: normal to inspection, capillary refill normal, no clubbing, cyanosis or edema, no calf tenderness and no pedal edema Neuro: SENSORIUM/ORIENTATION: Yes oriented to person, Yes oriented to place and Yes oriented to time Skin: COMMON NORMALS: no rashes or lesions noted GENERAL SKIN EXAM: no rashes or lesions noted Course Vital Signs: Vital signs: Vital Signs Temperature 97.9 F 01/25/21 07:13 Pulse Rate 73 01/25/21 07:13 Respiratory Rate 18 01/25/21 07:13 Blood Pressure 134/100 01/25/21 07:13 Pulse Oximetry 97 01/25/21 07:13 MDM - COVID MDM Narrative: Medical decision making narrative: Patient very stable this point we will go ahead and discharge home. Asked her to maintain self quarantine for now until results are available if worsens return. Discussed monoclonal antibodies, she wishes to go ahead and proceed with that if she is positive COVID Results: SARS-CoV-2 RNA (RT-PCR) Not detected (NOT DETECTED) 04/29/20 12:31 04/29/20 Discharge Plan Discharge Patient Disposition: Home Clinical Impression: Suspected COVID-19 virus infection, Viral infection Condition: Stable Prescriptions: No Action montelukast [Singulair] 10 mg tablet 10 mg PO DAILY@2130 RF: 0 albuterol sulfate 90 mcg/actuation Hfa Aerosol Inhaler 2 inh INHALATION Q4H PRN (Reason: Shortness Of Breath) RF: 0 albuterol sulfate 0.63 mg/3 mL solution for nebulization 0.63 mg INHALATION Q8H PRN (Reason: shortness of breath or wheezing) Qty: 90 RF: 1 multivitamin [Multiple Vitamins] Tablet 1 tab PO DAILY RF: 0 Vitamin B-12 1 tab PO DAILY RF: 0 Vitamin C 1 tab PO DAILY RF: 0 venlafaxine 150 mg Tablet Extended Release 24hr 150 mg PO DAILY@2130 RF: 0 Flonase Allergy Relief 50 mcg/actuation spray,suspension 2 spray intranasal DAILY Qty: 16 RF: 0 ipratropium bromide 0.02 % solution 2.5 ml inhalation Q6H PRN (Reason: shortness of breath or wheezing) Qty: 62.5 RF: 0 Flovent HFA 110 mcg/actuation HFA aerosol inhaler 2 inh inhalation BID PRN (Reason: asthma) Qty: 12 RF: 0 Discharge Orders: Discharge ED (Routine); Ordered 01/25/21 Ordered By: Josias Guerra Referrals: Shima Tavarez, DESK ASSISTANT [Primary Care Provider] - Discharge Diet: Usual diet Discharge Activity: Increase activity as tolerated Patient Instructions: Opioid Safety Activity Restrictions/Additional Instructions: Your tested for COVID-19 today. Maintain self quarantine until the results are back. If you are positive you will be a candidate for monoclonal antibodies contact your primary care provider. Coding Level of Care Code ED Relationship Advisor for Ko Fwpritesh Exam Comprehensive
== END 2021-01-25 08:10 | disposition home or self-care (01) ==
PROVIDERS: Emergency Provider Family Medicine; PCP Nurse Practitioner Family
DX: B34.9 Viral infection, unspecified (principal); Z20.822 Contact with and (suspected) exposure to COVID-19; F17.210 Nicotine dependence, cigarettes, uncomplicated
CPT/HCPCS: 99281

== ENCOUNTER 2021-03-28 08:02 | Emergency (ER) | payer SELFPAY ==
[2021-03-28 08:15] VITALS: BP 146/109; PULSE 69; RESP 19; TEMP 36.7; O2SAT 97; BMI 41.1
--- NOTE | 2021-03-28 08:30 | W.ED.EXTPRO ---
HPI - Extremity Problem General: Chief complaint: Extremity Problem,Nontraumatic Stated complaint: R FOOT PAIN Time Seen by Provider: 03/28/21 08:10 History of Present Illness: HPI Narrative: Patient complains about right foot pain. MD Complaint: extremity pain Onset (ago): month(s) Pain Consistency: intermittent Location: right and lower extremity Quality: stabbing and aching Radiation: none Relieving factors: immobilization Exacerbating factors: weight bearing Associated symptoms: Reports no associated symptoms; Deny fever(s) Review of Systems Const: Denies: fever(s) or chills Musc: Reports: extremity pain (Right foot pain after resting. On first waking in the morning. After a lo) Psych: Denies: anxiety or depression PFSH ED PFSH: Medical History (Updated 03/28/21 @ 08:29 by ROXIE Lomas) Asthma Social History Smoking and tobacco status: current every day smoker Female Reproductive History: Date of last menstrual period: 10/12/20 Physical Exam Const: COMMON NORMALS: no acute distress GENERAL APPEARANCE: cooperative Extremity: RIGHT LOWER EXTREMITY: Yes foot & digits (Pain located in tarsals and to the right heel. With palpation no swelling ) Psych: COMMON NORMALS: mental status grossly normal Course Vital Signs: Vital signs: Vital Signs Temperature 98.1 F 03/28/21 08:15 Pulse Rate 69 03/28/21 08:15 Respiratory Rate 19 H 03/28/21 08:15 Blood Pressure 146/109 03/28/21 08:15 Pulse Oximetry 97 03/28/21 08:15 Discharge Plan Discharge Patient Disposition: Home Clinical Impression: Plantar fasciitis of right foot Condition: Stable Prescriptions: New Voltaren Arthritis Pain 1 % gel 4 g topical QID Qty: 100 RF: 0 No Action montelukast [Singulair] 10 mg tablet 10 mg PO DAILY@2129 RF: 0 albuterol sulfate 90 mcg/actuation Hfa Aerosol Inhaler 2 inh INHALATION Q4H PRN (Reason: Shortness Of Breath) RF: 0 albuterol sulfate 0.63 mg/3 mL solution for nebulization 0.63 mg INHALATION Q8H PRN (Reason: shortness of breath or wheezing) Qty: 90 RF: 1 multivitamin [Multiple Vitamins] Tablet 1 tab PO DAILY RF: 0 Vitamin B-12 1 tab PO DAILY RF: 0 Vitamin C 1 tab PO DAILY RF: 0 venlafaxine 150 mg Tablet Extended Release 24hr 150 mg PO DAILY@2130 RF: 0 Flonase Allergy Relief 50 mcg/actuation spray,suspension 2 spray intranasal DAILY Qty: 16 RF: 0 ipratropium bromide 0.02 % solution 2.5 ml inhalation Q6H PRN (Reason: shortness of breath or wheezing) Qty: 62.5 RF: 0 Flovent HFA 110 mcg/actuation HFA aerosol inhaler 2 inh inhalation BID PRN (Reason: asthma) Qty: 12 RF: 0 Discharge Orders: Discharge ED (Routine); Ordered 03/28/21 Ordered By: Damien Rosenberg Referrals: Shima Tavarez FNP [Primary Care Provider] - Discharge Diet: Usual diet Discharge Activity: Resume usual activity Patient Instructions: Plantar Fasciitis Exercises (GEN), Plantar Fasciitis (ED) Activity Restrictions/Additional Instructions: Follow-up with medical provider as directed. Take medications as prescribed. Return to the ER or your medical provider if condition worsens. Please read and understand discharge instructions. If any questions ask please. By heel cushion to use. Make sure he has good arch support. Can get a plantar fascial splint from home health care agency if needed. Stand Alone Forms: Work/School Release Coding Level of Care Code ED Derrick Worker for Ko Cabrera
[2021-03-28 08:42] VITALS: BP 146/109; PULSE 68; RESP 19; TEMP 37.1; O2SAT 97
== END 2021-03-28 08:46 | disposition home or self-care (01) ==
PROVIDERS: Emergency Provider Nurse Practitioner Family; PCP Nurse Practitioner Family
DX: M72.2 Plantar fascial fibromatosis (principal); J45.909 Unspecified asthma, uncomplicated; F17.200 Nicotine dependence, unspecified, uncomplicated
CPT/HCPCS: 99281

== ENCOUNTER 2021-04-19 16:22 | Inpatient (IN) | payer SELFPAY ==
[2021-04-19 17:01] VITALS: BP 118/79; PULSE 82; RESP 18; TEMP 36.8; O2SAT 97; BMI 47.2
[2021-04-19 17:03] LABS: Basophils # 0.1 10^3/uL (0.0-0.1); Basophils % 1.2 %; Eosinophils # 0.8 10^3/uL (0.0-0.8); Eosinophils % 7.5 %; Hematocrit 48.4 % (37.0-47.0); Hemoglobin 15.9 g/dL (11.5-15.3); Lymphocytes # 3.6 10^3/uL (0.8-4.8); Lymphocytes % 33.7 %; Mean Corpuscular HGB Conc 32.9 g/dL (30.0-36.0); Mean Corpuscular Volume 91.3 fl (81-99); Mean Platelet Volume 10.7 fL (7.4-10.4); Monocytes # 0.6 10^3/uL (0.2-0.9); Monocytes % 5.4 %; Neutrophils # 5.47 10^3/uL (1.8-7.7); Neutrophils % 51.4 %; Nucleated Red Blood Cells % 0 %; Platelet Count 380 10^3/cmm (130-400); White Blood Count 10.6 10^3/uL (4.0-10.0)
[2021-04-19 17:15] LABS: HCG, Serum Qual Negative (Negative)
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
[2021-04-19 17:22] LABS: Alanine Aminotransferase 67 U/L (0-33); Albumin Level 4.3 g/dL (3.5-5.2); Alkaline Phosphatase 98 IU/L (35-105); Anion Gap 19.6 (5-19); Aspartate Amino Transferase 41 U/L (0-32); Blood Urea Nitrogen 5 mg/dL (6-20); Calcium 8.7 mg/dL (8.5-10.5); Carbon Dioxide 21 mmol/L (22-29); Chloride 106 mmol/L (98-107); Globulin 2.9 g/dL (1.3-4.6); Glomerular Filtration Rate 117.4 mL/min (90-130); Glucose 107 mg/dL (65-115); Osmolality Calculated 294 mOsm/kg (285-295); Potassium 3.6 mmol/L (3.5-5.1); Sodium 143 mmol/L (136-145); Total Bilirubin 0.2 mg/dL (0.15-1.2); Total Protein 7.2 g/dL (6.6-8.7)
[2021-04-19 17:26] LABS: Acetaminophen < 5.0 ug/mL (10-30); Salicylate < 0.3 mg/dL (3-10)
--- NOTE | 2021-04-19 17:42 | PC.PHAR ---
PT STATES SHE TAKES CARE OF HER OWN MEDICATIONS-PT STATES SHE HASNT TAKEN VENLAFAXINE ER 150MG AND SINGULAIR 10MG FOR 5 MONTHS [facility] LAST FILLED IN SEPTEMBER 2020-PT STATES SHE USES THE NEBULIZER MEDICATIONS PRN PT STATES SHE HAS A FLOVENT INHALER PRN WHEN SHE CAN AFFORD TO GET IT-
[2021-04-19] MEDS: acetaminophen 325 mg Tablet 650 MG PO (19:01)
[2021-04-19] MEDS: nicotine 2 mg Gum BUCCAL (19:01)
[2021-04-19 19:27] LABS: Add Urine Culture? No; Add Urine Microscopic? YES; Bacteria Urine TRACE /hpf; Bilirubin Urine Neg (Negative); Blood Urine 2+ (Negative); Glucose Urine UA Norm (Normal); Ketones Urine Negative (Negative); Leukocyte Esterase Urine Negative (Negative); Nitrate Urine Negative (Negative); Protein Urine Neg (Negative); RBC Urine 0-4 /hpf (0-2); Specific Gravity, Urine 1.005 (1.005-1.030); Squamous Epithelial Cell Urine 0-4 /hpf (0-5); Sulfosalicylic Acid Urine Negative (Negative); Urine Appearance Clear (CLEAR); Urine Color Yellow (Yellow); Urobilinogen Urine Norm (Negative); WBC Urine 0-4 /hpf (0-5); pH Urine 7 (5-7)
[2021-04-19 19:54] LABS: Alcohol Level 192 mg/dL (0-10)
[2021-04-19 20:02] LABS: Amphetamines Screen Urine Negative (Negative); Barbiturates Screen Urine Negative (Negative); Benzodiazepines Screen Urine Positive (Negative); Cocaine Screen Urine Negative (Negative); Opiate Screen Urine Positive (Negative); PCP Screen Urine Negative (Negative); THC Screen Urine Negative (Negative)
[2021-04-19 20:47] VITALS: BP 125/84; PULSE 111; RESP 17; TEMP 37.2; O2SAT 94
[2021-04-20 05:59] VITALS: BP 133/85; PULSE 83; RESP 17; TEMP 36.8; O2SAT 98
[2021-04-20] MEDS: multivitamin therapeutic Tablet 1 TAB PO (08:25)
[2021-04-20] MEDS: folic acid 1 mg Tablet PO (08:25)
[2021-04-20] MEDS: thiamine 100 mg Tablet PO (08:25)
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
[2021-04-20] MEDS: nicotine 21 mg Patch 1 PATCH TRANSDERMA (11:00)
--- NOTE | 2021-04-20 12:33 | NPU.GN ---
[facility] Unit Group Topic:Coping Skills General Mood of Group:Refused group.
[2021-04-20 14:00] VITALS: BP 149/98; PULSE 89; RESP 20; TEMP 36.1; O2SAT 96
[2021-04-20 20:13] VITALS: BP 135/78; PULSE 87; RESP 18; TEMP 36.6; O2SAT 99
[2021-04-21 06:00] VITALS: BP 126/77; PULSE 79; RESP 17; TEMP 36.6; O2SAT 97
[2021-04-21] MEDS: thiamine 100 mg Tablet PO (07:44)
[2021-04-21] MEDS: folic acid 1 mg Tablet PO (07:44)
[2021-04-21] MEDS: nicotine 21 mg Patch 1 PATCH TRANSDERMA (07:44)
[2021-04-21] MEDS: multivitamin therapeutic Tablet 1 TAB PO (07:44)
[2021-04-21 14:00] VITALS: BP 127/85; PULSE 72; RESP 18; TEMP 36.1; O2SAT 98
--- NOTE | 2021-04-21 18:38 | PM.NPN ---
Subjective NPU Subjective: Interval history: Patient presents today reporting that things are going better. She is feeling calmer and feels like she is more ready to face the world. Once again reviewed the possibility of restarting her Effexor XR and she continued to endorse concerns about the cost. We agreed that this development writer would review cost considerations and we would see if the cost was in a zone that she could consider and if so we would restart the medication. Otherwise reports she is doing better overall and feels optimistic about a plan for discharge in the morning. Mental Status Exam MSE Comments: This is a morbidly obese, white female, with hospital scrubs with adequate grooming and eye contact. No abnormal movements. Cooperative with exam in no acute distress. Speech was normal rate and volume. Mood described as better; affect congruent. Thought process, organized. Thought content: patient denied any suicidal or homicidal ideation, there were no delusions reported or noted, patient denied any auditory or visual hallucinations. Attention, concentration, and memory appear intact but were not formally tested. He is alert and oriented times three. Insight and judgment appear fair, impulse control is limited Vitals/I&O/Wt Last Vital Signs Temp 98.4 F 04/21/21 22:00 Pulse 60 04/21/21 22:00 Resp 18 04/21/21 22:00 BP 122/71 04/21/21 22:00 Pulse Ox 100 04/21/21 22:00 Data NPU : 04/19/21 16:40 04/19/21 16:40 A&P Additional A&P Information This is a 30-year-old, white female, with a long history of trauma and post-traumatic stress disorder symptoms, with previous difficulties with alcohol that seemed to be downplayed, who presents on a 96-hour hold secondary to suicidal threats made while intoxicated. RECOMMENDATION AND PLAN: 1. Continue current medication. Possibly start Effexor XR 37.5 mg in the morning if we can identify cost considerations. 2. Encourage individual, group, and milieu therapy. 3. Continue q-15 minute checks for safety. 4. Encourage sober living treatment after discharge at the highest level of care to which he is willing to commit. Involuntary Hold Information 96 Hour Hold: 96 Hour Involuntary Admission: Yes 96 Hour Hold Ending Date: 04/23/21 96 Hour Hold Ending Time: 17:00 Attestations NPU Medical Necessity Statement*: Inpatient hospitalization is medically necessary and the clinically appropriate intervention, at this time. We will monitor medications and make changes as indicated. Likely length of stay is 1-2 days. Coding Level of Care Code Acute General Merchandise Manager for Ko Cabrera
[2021-04-21 22:00] VITALS: BP 122/71; PULSE 60; RESP 18; TEMP 36.9; O2SAT 100
[2021-04-22 06:00] VITALS: BP 115/70; PULSE 60; RESP 20; TEMP 36.6; O2SAT 100
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
[2021-04-22 08:19] VITALS: BP 115/70; PULSE 60; RESP 20; TEMP 36.6; O2SAT 100
[2021-04-22] MEDS: venlafaxine ER (24HR) 37.5 mg Capsule PO (08:31)
[2021-04-22] MEDS: folic acid 1 mg Tablet PO (08:32)
[2021-04-22] MEDS: thiamine 100 mg Tablet PO (08:32)
[2021-04-22] MEDS: multivitamin therapeutic Tablet 1 TAB PO (08:32)
--- NOTE | 2021-04-23 14:58 | PC.RESP ---
SMOKING CESSATION INFORMATION SENT TO PATIENT.
== END 2021-04-22 13:57 | disposition home or self-care (01) | DRG 881 ==
LOC: ER 17:24 → NP 18:16
PROVIDERS: Admitting Provider Psychiatry & Neurology Psychiatry; Emergency Provider Family Medicine; PCP Nurse Practitioner Family; Visit Provider Psychiatry & Neurology Psychiatry
DX: F32.9 Major depressive disorder, single episode, unspecified (principal); R45.851 Suicidal ideations; Z68.42 Body mass index [BMI] 45.0-49.9, adult; J45.21 Mild intermittent asthma with (acute) exacerbation; Z62.810 Personal history of physical and sexual abuse in childhood; F17.210 Nicotine dependence, cigarettes, uncomplicated; E66.01 Morbid (severe) obesity due to excess calories; G56.01 Carpal tunnel syndrome, right upper limb; F43.10 Post-traumatic stress disorder, unspecified; F41.9 Anxiety disorder, unspecified; F10.10 Alcohol abuse, uncomplicated; Z81.8 Family history of other mental and behavioral disorders; Z81.1 Family history of alcohol abuse and dependence
CPT/HCPCS: 80053; 80306; 80307; 81001; 84703; 85025; 97150; 97165; 99285

== ENCOUNTER 2021-05-15 06:13 | Emergency (ER) | payer SELFPAY ==
[2021-05-15 06:19] VITALS: BP 123/89; PULSE 74; RESP 22; TEMP 36.2; O2SAT 93; BMI 45.7
[2021-05-15 06:39] VITALS: BP 120/84; PULSE 74; RESP 22; O2SAT 94
--- NOTE | 2021-05-15 06:47 | XRR_ITS ---
PROCEDURE INFORMATION: Exam: XR Chest Exam date and time: 05/15/2021 6:47 AM Age: 30 years old Clinical indication: Cough and dyspnea; Additional info: Dyspnea/cough TECHNIQUE: Imaging protocol: XR of the chest. Views: 1 view. Total images: 1 COMPARISON: CR XR chest 1V portable [id number] 12/07/2020 12:14 AM FINDINGS: Lungs: Unremarkable. No consolidation. Pleural spaces: Unremarkable. No pleural effusion. No pneumothorax. Heart/Mediastinum: Unremarkable. No cardiomegaly. Bones/joints: Unremarkable. XR/XR chest 1V portable [id number] IMPRESSION: No acute findings. Radiation Dose CTDIVOL = (mGy): DLP = (mGy-cm)
--- NOTE | 2021-05-15 06:48 | ED_ITS ---
HPI - SOB/Dyspnea General: Chief Complaint: Shortness of Breath/Dyspnea Stated Complaint: Asthma Time Seen by Provider: 05/15/21 06:40 History of Present Illness: HPI Narrative: 30-year-old female presents emergency room with complaint of cough and wheezing. She has had symptoms for the last 2 days slight change in productive cough from her baseline. Mostly still clear mucus. No fever no myalgias no flulike symptoms no diarrhea. She not previously had Covid nor she been vaccinated. She has used up her rescue inhaler and is relying solely on her albuterol nebulizer treatments. She has been using the treatments about every 4 hours, until she ran out overnight she has not been able to use any. MD elicited complaint: shortness of breath and cough Pertinent past history: asthma Onset (ago): day(s) Timing: intermittent Exacerbating factors: exertion and coughing Relieving factors: rest and bronchodilators Known history of: asthma Associated symptoms: Deny abdominal pain, chest congestion, chest pain, cough, diaphoresis, dizziness, extremity pain, fever(s), hemoptysis, lightheadedness, myalgias, nausea, orthopnea, palpitations, paresthesias, polydipsia, polyuria, rash, sense of impending doom, syncope or vomiting Treatment prior to arrival: bronchodilator Review of Systems Const: Denies: fever(s) or diaphoresis ENMT: Denies: throat pain, ear or mastoid pain, nasal discharge or nasal congestion Card: Denies: chest pain, palpitations, lightheadedness, syncope or orthopnea Resp: Denies: hemoptysis or chest congestion GI: Denies: abdominal pain, nausea or vomiting : Denies: flank pain, difficulty voiding, dysuria, urinary frequency or urinary urgency Musc: Denies: extremity pain Skin/Breast: Denies: rash or pruritus Neuro: Denies: dizziness Endo: Denies: polyuria or polydipsia PFSH ED PFSH: Medical History Asthma Social History Smoking and tobacco status: current every day smoker Female Reproductive History: Date of last menstrual period: 10/12/20 Physical Exam Const: COMMON NORMALS: no acute distress GENERAL APPEARANCE: cooperative and comfortable ORIENTATION/CONSCIOUSNESS: Yes awake, Yes oriented to person, Yes oriented to place and Yes oriented to time HENMT: COMMON NORMALS: normocephalic and atraumatic HEAD & SCALP: normocephalic and atraumatic Neck/C-Spine: COMMON NORMALS: no JVD Resp: COMMON NORMALS: normal respiratory effort, No retractions and No use of accessory muscles AUSCULTATION: wheezes (mild) Cardio: COMMON NORMALS: no JVD, regular rate, regular rhythm and No murmurs present (Cardio) RATE: regular rate RHYTHM: regular rhythm GI: COMMON NORMALS: Soft to palpation and No hepatosplenomegaly present AUSCULTATION: Yes normoactive bowel sounds PALPATION: Yes Soft to palpation, No Tenderness to palpation present (GI), No Guarding due to palpation present (GI) and Yes No hepatosplenomegaly present Extremity: COMMON NORMALS: normal to inspection, capillary refill normal, no clubbing, cyanosis or edema, no calf tenderness and no pedal edema Neuro: SENSORIUM/ORIENTATION: Yes oriented to person, Yes oriented to place and Yes oriented to time Skin: COMMON NORMALS: no rashes or lesions noted GENERAL SKIN EXAM: no rashes or lesions noted Course Vital Signs: Vital signs: Vital Signs Temperature 97.1 F L 05/15/21 06:19 Pulse Rate 74 05/15/21 06:39 Respiratory Rate 22 H 05/15/21 06:39 Blood Pressure 120/84 05/15/21 06:39 Pulse Oximetry 94 05/15/21 06:39 MDM - SOB/Dyspnea MDM Narrative: Medical decision making narrative: Follow-up with primary care within the week return to the emergency room for further problems. Discharge Plan Discharge Patient Disposition: Home Clinical Impression: Asthma with exacerbation Condition: Stable Prescriptions: New Medrol (Castro) 4 mg tablets,dose pack See Rx Instructions .ROUTE .COMPLEX Qty: 21 RF: 0 albuterol sulfate 90 mcg/actuation HFA aerosol inhaler 2 inh INHALATION Q4H PRN (Reason: shortness of breath or wheezing) Qty: 18 RF: 0 No Action albuterol sulfate 90 mcg/actuation Hfa Aerosol Inhaler 2 inh INHALATION Q4H PRN (Reason: Shortness Of Breath) RF: 0 albuterol sulfate 0.63 mg/3 mL solution for nebulization 0.63 mg INHALATION Q8H PRN (Reason: shortness of breath or wheezing) Qty: 90 RF: 1 Vitamin B-12 1 tab PO DAILY RF: 0 Vitamin C 1 tab PO DAILY RF: 0 ipratropium bromide 0.02 % solution 2.5 ml inhalation Q6H PRN (Reason: shortness of breath or wheezing) Qty: 62.5 RF: 0 Flovent HFA 110 mcg/actuation HFA aerosol inhaler 2 inh inhalation BID PRN (Reason: asthma) Qty: 12 RF: 0 multivitamin Tablet 1 tab PO DAILY RF: 0 Flonase Allergy Relief 50 mcg/actuation spray,suspension 2 spray intranasal DAILY PRN (Reason: Allergy Symptoms) RF: 0 venlafaxine 37.5 mg Capsule,Extended Release 24hr 37.5 mg PO DAILY 30 Days Qty: 30 RF: 0 Effexor XR 75 mg capsule,extended release 24hr 75 mg PO DAILY 30 Days Qty: 30 RF: 1 Discharge Orders: Discharge ED (Routine); Ordered 05/15/21 Ordered By: Josias Guerra Referrals: Shima Tavarez FNP [Primary Care Provider] - Patient Instructions: Opioid Safety Activity Restrictions/Additional Instructions: Follow-up with your primary care doctor within the next week return to the ER if you have further problems. Coding Level of Care Code ED Miniature Set Constructor for Ko Cabrera
[2021-05-15 07:45] VITALS: PULSE 62; RESP 17; O2SAT 98
[2021-05-15] MEDS: ipratropium-albuterol 3 mL Neb INHALATION (08:00)
[2021-05-15 08:11] VITALS: BP 120/56; PULSE 72; RESP 18; O2SAT 94
== END 2021-05-15 08:09 | disposition home or self-care (01) ==
PROVIDERS: Emergency Provider Family Medicine; PCP Nurse Practitioner Family
DX: J45.901 Unspecified asthma with (acute) exacerbation (principal); F17.210 Nicotine dependence, cigarettes, uncomplicated
CPT/HCPCS: 71045; 94640; 96374; 99283; J2930

== ENCOUNTER 2021-06-27 10:49 | Emergency (ER) | payer SELFPAY ==
[2021-06-27 10:58] VITALS: BP 148/85; PULSE 80; RESP 16; TEMP 36.7; O2SAT 97; BMI 42.9
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
== END 2021-06-27 14:35 | disposition home or self-care (01) ==
PROVIDERS: Emergency Provider Physician Assistant; PCP Nurse Practitioner Family
DX: S46.912A Strain of unspecified muscle, fascia and tendon at shoulder and upper arm level, left arm, initial encounter (principal); F17.210 Nicotine dependence, cigarettes, uncomplicated; X58.XXXA Exposure to other specified factors, initial encounter
CPT/HCPCS: 73030; 99282

== ENCOUNTER 2021-07-28 15:37 | Emergency (ER) | payer SELFPAY ==
[2021-07-28 15:49] VITALS: BP 138/94; PULSE 101; RESP 28; TEMP 37.4; O2SAT 96; BMI 42.9
--- NOTE | 2021-07-28 16:13 | XRR_ITS ---
PROCEDURE INFORMATION: Exam: XR Chest Exam date and time: 07/28/2021 4:13 PM Age: 30 years old Clinical indication: Cough and fever; Additional info: Cough, fevers TECHNIQUE: Imaging protocol: XR of the chest. Views: 1 view. COMPARISON: CR (CHEST, ) 05/15/2021 7:11 AM FINDINGS: Lungs: Unremarkable. No consolidation. Pleural spaces: Unremarkable. No pleural effusion. No pneumothorax. Heart/Mediastinum: Unremarkable. No cardiomegaly. Bones/joints: Unremarkable. XR/XR chest 1V portable [id number] IMPRESSION: No acute findings.
--- NOTE | 2021-07-28 18:36 | W.ED.URI ---
HPI - URI/Sore Throat General: Chief Complaint: Fever Stated Complaint: FEVER/SOB Time Seen by Provider: 07/28/21 18:25 History of Present Illness: HPI Narrative: Patient is a 30-year-old female comes to the ED with upper respiratory symptoms. Past medical history of asthma and uses albuterol inhaler and nebulizer as needed. Patient says that her symptoms started yesterday. She has been having a cough, nasal congestion drainage, fevers and body aches. Cough she describes as productive with whitish colored sputum. Reports having a really bad headache. Associated symptoms: Reports fever(s), headache(s) and nasal congestion; Deny abdominal pain, chills, chest pain, diarrhea, ear or mastoid pain, nausea or vomiting Review of Systems Const: Reports: fever(s) and body aches; Denies: chills or fatigue Eyes: Denies: change in vision or eye discomfort ENMT: Reports: nasal discharge and nasal congestion; Denies: throat pain, odynophagia or ear or mastoid pain Card: Denies: chest pain, palpitations, edema, swelling of feet/ankles, dyspnea on exertion or orthopnea Resp: Reports: non-productive cough and wheezing; Denies: dyspnea or productive cough GI: Denies: abdominal pain, nausea, vomiting, diarrhea, constipation or hematochezia : Denies: flank pain, dysuria or hematuria Musc: Denies: neck pain, back pain or extremity swelling Skin/Breast: Denies: rash or new lesions Neuro: Reports: headache(s); Denies: numbness in extremities or weakness in extremities [facility] ED PFSH: Medical History Asthma Social History Smoking and tobacco status: current every day smoker Female Reproductive History: Date of last menstrual period: 04/27/21 Physical Exam Const: COMMON NORMALS: no acute distress, patient oriented x3, healthy appearing and alert GENERAL APPEARANCE: cooperative and comfortable HENMT: COMMON NORMALS: normocephalic HEAD & SCALP: normocephalic MOUTH: Normal oral and palatal mucosa present THROAT: posterior oropharynx normal and uvula midline Neck/C-Spine: COMMON NORMALS: supple GENERAL: Yes normal visual inspection Resp: COMMON NORMALS: normal respiratory effort, No retractions and No use of accessory muscles EFFORT & INSPECTION: Yes able to speak in complete sentences, No tachypneic, No respiratory distress, No labored and Yes Actively coughing non-productive and dry AUSCULTATION: wheezes expiratory wheezes and lower bilaterally OTHER: No crackles or any other lung sounds present bilaterally besides some wheezing at the lower bilateral lungs. Cardio: COMMON NORMALS: regular rate, regular rhythm, S1 normal heart sound present, S2 normal heart sound present, No gallops present (Cardio), No clicks present (Cardio), No murmurs present (Cardio) and Peripheral pulses 2+ throughout RATE: regular rate RHYTHM: regular rhythm HEART SOUNDS: S1 normal heart sound present and S2 normal heart sound present PERIPHERAL PULSES: Peripheral pulses 2+ throughout GI: COMMON NORMALS: Normal to inspection, nondistended, normoactive bowel sounds present, Soft to palpation, non-tender and no masses PALPATION: Yes Soft to palpation : COMMON NORMALS: Yes no CVA tenderness BLADDER/KIDNEY EXAM: Yes no CVA tenderness Back/Pelvis: COMMON NORMALS: no CVA tenderness Extremity: COMMON NORMALS: normal to inspection Neuro: COMMON NORMALS: patient oriented x3 and moves all extremities SENSORIUM/ORIENTATION: Yes alert Skin: GENERAL SKIN EXAM: dry skin Course Vital Signs: Vital signs: Vital Signs Temperature 99.4 F 07/28/21 15:49 Pulse Rate 80 07/28/21 20:52 Respiratory Rate 18 07/28/21 20:52 Blood Pressure 130/92 07/28/21 20:52 Pulse Oximetry 96 07/28/21 20:52 MDM - URI/Sore Throat MDM Narrative: Medical decision making narrative: Patient is a 30-year-old female comes to the ED with upper respiratory symptoms. She has a past medical history of asthma and uses an inhaler as needed for shortness of breath. She is having symptoms of nasal congestion, productive cough, body aches, headache. Vital stable patient is afebrile here in the ED. Patient has bilateral lower lung wheezing but the rest of exam is benign. Chest x-ray showed no acute findings. UA showed no acute findings and hCG was negative. Patient was given a dose of Toradol and a DuoNeb breathing treatment here in the ED and her symptoms improved. I gave the patient the option to stay and wait for the viral testing results or she could go home and then contact the hospital in a couple hours or tomorrow morning to get results. Patient decided to go home and said she did call the hospital to find out her viral testing results. Patient says she felt a lot better after getting breathing treatment and Toradol. Patient was diagnosed with a viral syndrome and bronchitis and discharged home with azithromycin and prednisone. Follow-up with PCP in 7 to 10 days reevaluation. Return to ED precautions given. Patient understood and agree with plan. Lab Data: Attestation: I reviewed the patient's lab results. Labs: Lab Results 07/28/21 07/28/21 07/28/21 18:35 18:44 18:44 Urine Color Yellow (Yellow) Urine Appearance Clear (CLEAR) Urine pH 7 (5-7) Ur Specific Gravit y 1.005 (1.005-1.030) Urine Protein Neg (Negative) Urine Glucose (UA) Norm (Normal) Urine Ketones Negative (Negative) Urine Blood Neg (Negative) Urine Nitrate Negative (Negative) Urine Bilirubin Neg (Negative) Urine Urobilinogen 4 mg/dL H mg/dL (Negative) Ur Leukocyte Diane ase Negative (Negative) Urine HCG, Qual Negative (Negative) Nasal Influ A H1 2 009 PCR Not detected (NOT DETECT) Coronavirus 229E ( PCR) Detected A (NOT DETECT) Influenza A (H1) P CR Not detected (NOT DETECT) Influenza A (H3) P CR Not detected (NOT DETECT) Influenza Type A ( PCR) Not detected (NOT DETECT) Influenza Type B ( PCR) Not detected (NOT DETECT) SARS-CoV-2 (PCR) Not detected (NOT DETECT) Imaging Data^: CXR: Attestation: I personally reviewed and interpreted this imaging study as follows: Radiologist's impression: [address] [address]QXhm ReportSigned Patient: Janie Medrano #: [id number]: 1990Acct#:[id number]/Sex: 30 / FADM Date: 07/28/21Loc: ERRoom/Bed:Attending Dr: Ordering Provider/Ordering MD: Carisa Dudley Date of Service: 07/28/21 Procedure(s): XR chest 1V portable [id number] Accession Number(s): [id number] Report Number: [id number] PROCEDURE INFORMATION: Exam: XR Chest Exam date and time: 07/28/2021 4:13 PM Age: 30 years old Clinical indication: Cough and fever; Additional info: Cough, fevers TECHNIQUE: Imaging protocol: XR of the chest. Views: 1 view. COMPARISON: CR (CHEST, ) 05/15/2021 7:11 AM FINDINGS: Lungs: Unremarkable. No consolidation. Pleural spaces: Unremarkable. No pleural effusion. No pneumothorax. Heart/Mediastinum: Unremarkable. No cardiomegaly. Bones/joints: Unremarkable. XR/XR chest 1V portable [id number] IMPRESSION: No acute findings. Dictated By:Srinivasan Chan By:Srinivasan Chan Date/Time:07/28/21 1702DD/ 1613 Discharge Plan Discharge Patient Disposition: Home Clinical Impression: Acute viral syndrome, Bronchitis Condition: Stable Prescriptions: New azithromycin 250 mg tablet 250 mg PO DAILY 4 Days Qty: 4 RF: 0 prednisone 20 mg tablet 20 mg PO BID 5 Days Qty: 10 RF: 0 No Action albuterol sulfate 90 mcg/actuation Hfa Aerosol Inhaler 2 inh INHALATION Q4H PRN (Reason: Shortness Of Breath) RF: 0 albuterol sulfate 0.63 mg/3 mL solution for nebulization 0.63 mg INHALATION Q8H PRN (Reason: shortness of breath or wheezing) Qty: 90 RF: 1 Vitamin B-12 1 tab PO DAILY RF: 0 Vitamin C 1 tab PO DAILY RF: 0 ipratropium bromide 0.02 % solution 2.5 ml inhalation Q6H PRN (Reason: shortness of breath or wheezing) Qty: 62.5 RF: 0 Flovent HFA 110 mcg/actuation HFA aerosol inhaler 2 inh inhalation BID PRN (Reason: asthma) Qty: 12 RF: 0 multivitamin Tablet 1 tab PO DAILY RF: 0 Flonase Allergy Relief 50 mcg/actuation spray,suspension 2 spray intranasal DAILY PRN (Reason: Allergy Symptoms) RF: 0 Effexor XR 75 mg capsule,extended release 24hr 75 mg PO DAILY 30 Days Qty: 30 RF: 1 Medrol (Castro) 4 mg tablets,dose pack See Rx Instructions .ROUTE .COMPLEX Qty: 21 RF: 0 albuterol sulfate 90 mcg/actuation HFA aerosol inhaler 2 inh INHALATION Q4H PRN (Reason: shortness of breath or wheezing) Qty: 18 RF: 0 Medrol (Castro) 4 mg tablets,dose pack See Rx Instructions PO .COMPLEX Qty: 21 RF: 0 methocarbamol 750 mg tablet 750 mg PO TID Qty: 20 RF: 0 Discharge Orders: Discharge ED (Routine); Ordered 07/28/21 Ordered By: Bill Somers Referrals: Shima Tavarez FNP [Primary Care Provider] - Discharge Diet: Regular Discharge Activity: Increase activity as tolerated Patient Instructions: Acute Bronchitis (ED), Viral Syndrome (ED) Activity Restrictions/Additional Instructions: Follow-up with medical provider as directed in 7 to 10 days reevaluation. Here influenza and Covid test is pending. Call the hospital either later tonight or tomorrow morning to find out test results. Take medications as prescribed. Use your previously prescribed inhaler as needed for any shortness of breath or wheezing. Return to the ER or your medical provider if condition worsens. Please read and understand discharge instructions. Thank you for choosing [facility] for your healthcare needs today. Please realize this is an emergency room and that we are providing you with a medical screening exam and this may not be complete and all inclusive of all the testing and or work up that you may need to determine your ailment or severity of your illness. It is very important that you follow up as instructed or that you return to the Emergency Department should you have concerns or if your condition changes or worsens in any way. Stand Alone Forms: Work/School Release Coding Level of Care Code ED Appliance Service Technician for Ko Fwd Exam Comprehensive
[2021-07-28 19:00] LABS: Add Urine Microscopic? NO; Charge for UA Resulting for Rev
[2021-07-28 19:01] LABS: Bilirubin Urine Neg (Negative); Blood Urine Neg (Negative); Glucose Urine UA Norm (Normal); Ketones Urine Negative (Negative); Nitrate Urine Negative (Negative); Protein Urine Neg (Negative); Specific Gravity, Urine 1.005 (1.005-1.030); Urine Appearance Clear (CLEAR); Urine Color Yellow (Yellow); Urobilinogen Urine 4 mg/dL (Negative); pH Urine 7 (5-7)
[2021-07-28 19:02] LABS: Leukocyte Esterase Urine Negative (Negative)
[2021-07-28] MEDS: ipratropium-albuterol 3 mL Neb 6 ML INHALATION (19:19)
[2021-07-28] MEDS: ketorolac 60 mg/2 mL INJ IM (19:21)
[2021-07-28 19:22] VITALS: PULSE 76; RESP 16; O2SAT 98
[2021-07-28 19:30] VITALS: PULSE 76
[2021-07-28 20:50] LABS: Adenovirus Not Detected (NOT DETECT); Chlamydia Pneumoniae Not Detected (NOT DETECT); Coronavirus 229E,HKU1,NL63,OC4 Detected (NOT DETECT); Human Metapneumovirus Not Detected (NOT DETECT); Human Rhinovirus/Enterovirus Not Detected (NOT DETECT); Influenza A Not Detected (NOT DETECT); Influenza A H1 Not Detected (NOT DETECT); Influenza A H1-2009 Not Detected (NOT DETECT); Influenza A H3 Not Detected (NOT DETECT); Influenza B Not Detected (NOT DETECT); Mycoplasma Pneumoniae Not Detected (NOT DETECT); Parainfluenza Virus Type 1 Not Detected (NOT DETECT); Parainfluenza Virus Type 2 Not Detected (NOT DETECT); Parainfluenza Virus Type 3 Not Detected (NOT DETECT); Parainfluenza Virus Type 4 Not Detected (NOT DETECT); Respiratory Syncytial Virus A Not Detected (NOT DETECT); Respiratory Syncytial Virus B Not Detected (NOT DETECT); SARS-COV-2 Not Detected (NOT DETECT)
[2021-07-28 20:52] VITALS: BP 130/92; PULSE 80; RESP 18; O2SAT 96
[2021-07-28 21:06] LABS: Results from Genmark
== END 2021-07-28 20:52 | disposition home or self-care (01) ==
PROVIDERS: Emergency Provider Physician Assistant; PCP Nurse Practitioner Family
DX: U07.1 COVID-19 (principal); J40 Bronchitis, not specified as acute or chronic; F17.210 Nicotine dependence, cigarettes, uncomplicated
CPT/HCPCS: 71045; 81003; 81025; 87631; 87635; 94640; 96372; 99283; J1885; J2930

== ENCOUNTER 2021-08-11 21:37 | Emergency (ER) | payer SELFPAY ==
[2021-08-11 21:50] VITALS: BP 129/90; PULSE 93; RESP 18; TEMP 37; O2SAT 95; BMI 42.1
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
[2021-08-11 22:46] VITALS: BP 142/83; PULSE 94; RESP 21; O2SAT 96
[2021-08-12 00:10] VITALS: BP 133/82; PULSE 86; RESP 18; O2SAT 99
[2021-08-12] MEDS: acetaminophen 500 mg Tablet 1000 MG PO (00:14)
[2021-08-12] MEDS: ondansetron 4 MG Tablet PO (00:16)
[2021-08-12] MEDS: ketorolac 30 mg/mL INJ 15 MG IM (00:17)
[2021-08-12] MEDS: orphenadrine 30 mg/mL Inj 2 mL 60 MG IM (00:17)
== END 2021-08-12 00:34 | disposition home or self-care (01) ==
PROVIDERS: Nurse Practitioner Family; Emergency Provider Emergency Medicine; PCP Nurse Practitioner Family
DX: S09.8XXA Other specified injuries of head, initial encounter (principal); M54.2 Cervicalgia; S40.022A Contusion of left upper arm, initial encounter; Y04.2XXA Assault by strike against or bumped into by another person, initial encounter; F17.210 Nicotine dependence, cigarettes, uncomplicated
CPT/HCPCS: 70450; 72125; 73080; 81025; 96372; 99283; J1885; J2360; Q0162

== ENCOUNTER 2021-10-09 11:47 | Emergency (ER) | payer SELFPAY ==
[2021-10-09 12:00] VITALS: BP 155/111; PULSE 88; RESP 18; TEMP 36.8; O2SAT 97; BMI 42.9
--- NOTE | 2021-10-09 12:15 | W.ED.GENADLT ---
HPI - General Adult General: Chief complaint: Shortness of Breath/Dyspnea Stated complaint: sob Time Seen by Provider: 10/09/21 12:11 History of Present Illness: Patient presents today requesting a refill prescription. Patient was treated for bronchitis here in July the never get prescription filled due to financial difficulties now she says she has many is available. Patient says she is continue with a cough. Patient says she is a smoker. Patient denies any fever chills. Associated symptoms: Deny chest pain, dyspnea, headache(s), nausea, rash or vomiting Review of Systems Const: Denies: fever(s), chills or body aches Eyes: Denies: eye discomfort ENMT: Denies: throat pain Card: Denies: chest pain Resp: Reports: non-productive cough; Denies: dyspnea, wheezing or pain on inspiration GI: Denies: abdominal pain, nausea or vomiting Skin/Breast: Denies: rash Neuro: Denies: headache(s) Psych: Denies: depression or suicidal ideation [facility] ED PFSH: Medical History (Updated 10/09/21 @ 12:19 by ROXIE Lomas) Asthma Surgical History (Updated 08/20/21 @ 11:39 by Jose Armando Pugh MD) No significant past surgical history Social History Smoking and tobacco status: current every day smoker Female Reproductive History: Date of last menstrual period: 04/27/21 Physical Exam Const: COMMON NORMALS: no acute distress, patient oriented x3 and alert HENMT: COMMON NORMALS: normocephalic and external ears normal HEAD & SCALP: normocephalic EXTERNAL EAR: Yes external ears normal Eye: COMMON NORMALS: EOMs intact bilaterally Neck/C-Spine: COMMON NORMALS: no JVD Resp: COMMON NORMALS: normal respiratory effort and No use of accessory muscles AUSCULTATION: rhonchi (Very minimal basis) Cardio: COMMON NORMALS: no JVD GI: INSPECTION: Yes normal to inspection Extremity: COMMON NORMALS: normal to inspection and full ROM Neuro: COMMON NORMALS: patient oriented x3 SENSORIUM/ORIENTATION: Yes alert Psych: COMMON NORMALS: mental status grossly normal Skin: COMMON NORMALS: no rashes or lesions noted GENERAL SKIN EXAM: no rashes or lesions noted Course Vital Signs: Vital signs: Vital Signs Temperature 98.3 F 10/09/21 12:16 Pulse Rate 88 10/09/21 12:16 Respiratory Rate 18 10/09/21 12:16 Blood Pressure 155/111 10/09/21 12:16 Pulse Oximetry 97 10/09/21 12:16 [facility] - General Adult Medical Decision Making Bronchitis appears mild. Patient tobacco use disorder. Patient also has hypertension Discharge Plan Discharge Patient Disposition: Home Clinical Impression: Bronchitis, Tobacco abuse, Essential hypertension Condition: Stable Prescriptions: New prednisone 20 mg tablet 20 mg PO DAILY Qty: 7 0RF ProAir HFA 90 mcg/actuation HFA aerosol inhaler 2 inh inhalation Q4H PRN (Reason: shortness of breath or wheezing) Qty: 6.7 0RF No Action albuterol sulfate 90 mcg/actuation Hfa Aerosol Inhaler 2 inh INHALATION Q4H PRN (Reason: Shortness Of Breath) 0RF albuterol sulfate 0.63 mg/3 mL solution for nebulization 0.63 mg INHALATION Q8H PRN (Reason: shortness of breath or wheezing) Qty: 90 1RF Vitamin B-12 1 tab PO DAILY 0RF Vitamin C 1 tab PO DAILY 0RF ipratropium bromide 0.02 % solution 2.5 ml inhalation Q6H PRN (Reason: shortness of breath or wheezing) Qty: 62.5 0RF Flovent HFA 110 mcg/actuation HFA aerosol inhaler 2 inh inhalation BID PRN (Reason: asthma) Qty: 12 0RF multivitamin Tablet 1 tab PO DAILY 0RF Flonase Allergy Relief 50 mcg/actuation spray,suspension 2 spray intranasal DAILY PRN (Reason: Allergy Symptoms) 0RF Rx Instructions: administer into each nostril Effexor XR 75 mg capsule,extended release 24hr 75 mg PO DAILY 30 Days Qty: 30 1RF Medrol (Castro) 4 mg tablets,dose pack See Rx Instructions .ROUTE .COMPLEX Qty: 21 0RF Rx Instructions: orally per package directions albuterol sulfate 90 mcg/actuation HFA aerosol inhaler 2 inh INHALATION Q4H PRN (Reason: shortness of breath or wheezing) Qty: 18 0RF Medrol (Castro) 4 mg tablets,dose pack See Rx Instructions PO .COMPLEX Qty: 21 0RF Rx Instructions: orally per package directions methocarbamol 750 mg tablet 750 mg PO TID Qty: 20 0RF methocarbamol 750 mg tablet 750 mg PO TID Qty: 10 0RF Discharge Orders: Discharge ED (Routine); Ordered 10/09/21 Ordered By: Damien Rosenberg Referrals: Shima Tavarez FNP [Primary Care Provider] - Discharge Diet: Usual diet Discharge Activity: Resume usual activity Patient Instructions: How to Stop Smoking (ED), Chronic Bronchitis (ED), Chronic Hypertension (ED) Activity Restrictions/Additional Instructions: Follow-up with medical provider as directed. Take medications as prescribed. Return to the ER or your medical provider if condition worsens. Please read and understand discharge instructions. If any questions ask please. Monitor blood pressure readings on a daily basis Coding Level of Care Code ED Wheel Filler for Ko Fwpritesh Exam Comprehensive
[2021-10-09 12:16] VITALS: BP 155/111; PULSE 88; RESP 18; TEMP 36.8; O2SAT 97
[2021-10-09 12:25] VITALS: BP 155/111; PULSE 88; RESP 18; TEMP 36.8; O2SAT 97
== END 2021-10-09 12:26 | disposition home or self-care (01) ==
PROVIDERS: Emergency Provider Nurse Practitioner Family; PCP Nurse Practitioner Family
DX: J40 Bronchitis, not specified as acute or chronic (principal); I10 Essential (primary) hypertension; F17.210 Nicotine dependence, cigarettes, uncomplicated
CPT/HCPCS: 99281

== ENCOUNTER 2021-10-16 15:38 | Emergency (ER) | payer SELFPAY ==
[2021-10-16 15:43] VITALS: BP 136/88; PULSE 64; RESP 18; TEMP 36.6; O2SAT 97; BMI 41.0
--- NOTE | 2021-10-16 15:59 | ED_ITS ---
HPI - Nausea/Vomiting/Diarrhea General: Chief complaint: Nausea/Vomiting/Diarrhea Stated complaint: N/V/D Time Seen by Provider: 10/16/21 15:50 History of Present Illness: Patient comes in with nausea vomiting and diarrhea for the past 4 days. States she thought she might of had food poisoning, but it has persisted. States that she was able to eat just prior to coming to the emergency department and has been able to keep it down for the past 45 minutes. She denies any fever, abdominal pain. Associated nausea: Yes Associated symtoms: Reports nausea; Denies anxiety, change in vision, chest pain, dysuria, headache(s) or palpitations Review of Systems Const: Denies: fever(s) or body aches Eyes: Denies: change in vision or blurry vision ENMT: Denies: throat pain or odynophagia Card: Denies: chest pain or palpitations Resp: Denies: dyspnea or productive cough GI: Reports: nausea, vomiting and diarrhea; Denies: abdominal pain : Denies: flank pain or dysuria Musc: Denies: neck pain or back pain Skin/Breast: Denies: rash or pruritus Neuro: Denies: headache(s) or numbness in extremities Psych: Denies: anxiety or change in appetite Endo: Denies: polyuria or excessive sweating PFSH ED PFSH: Medical History (Updated 10/16/21 @ 15:58 by Donaldo Doran MD) Asthma Surgical History (Updated 08/20/21 @ 11:39 by Jose Armando Pugh MD) No significant past surgical history Social History Smoking and tobacco status: current every day smoker Female Reproductive History: Date of last menstrual period: 04/27/21 Physical Exam Const: COMMON NORMALS: no acute distress, patient oriented x3, healthy appearing and alert HENMT: COMMON NORMALS: normocephalic and atraumatic HEAD & SCALP: normocephalic and atraumatic Eye: COMMON NORMALS: Equal, round and reactive pupils present and EOMs intact bilaterally PUPIL: Yes Equal, round and reactive pupils present Neck/C-Spine: COMMON NORMALS: full ROM and supple Resp: COMMON NORMALS: normal respiratory effort, No retractions and No use of accessory muscles Cardio: COMMON NORMALS: regular rate and regular rhythm RATE: regular rate RHYTHM: regular rhythm GI: COMMON NORMALS: Normal to inspection, nondistended, normoactive bowel sounds present, Soft to palpation and non-tender PALPATION: Yes Soft to palpation Back/Pelvis: COMMON NORMALS: thoracic and lumbar spine normal to inspection and no thoracic nor lumbar tenderness Extremity: COMMON NORMALS: normal to inspection and full ROM Neuro: COMMON NORMALS: patient oriented x3 SENSORIUM/ORIENTATION: Yes alert Psych: COMMON NORMALS: mental status grossly normal and cooperative Skin: COMMON NORMALS: no rashes or lesions noted and no wounds GENERAL SKIN EXAM: no rashes or lesions noted Course Vital Signs: Vital signs: Vital Signs Temperature 97.8 F 10/16/21 15:43 Pulse Rate 64 10/16/21 15:43 Respiratory Rate 18 10/16/21 15:43 Blood Pressure 136/88 10/16/21 15:43 Pulse Oximetry 97 10/16/21 15:43 MDM - Nausea/Vomiting/Diarrhea Medical Decision Making Patient comes in with nausea vomiting and diarrhea for the past 4 days. States she thought she might of had food poisoning, but it has persisted. States that she was able to eat just prior to coming to the emergency department and has been able to keep it down for the past 45 minutes. She denies any fever, abdominal pain. On physical exam she has moist mucous membranes, abdomen is soft nontender. We will give her a dose of Zofran, and discharged with precautions return for worsening or changing symptoms. The patient is agreeable to this plan. Discharge Plan Discharge Patient Disposition: Home Clinical Impression: Gastroenteritis Condition: Stable Prescriptions: New Zofran 4 mg tablet 4 mg PO Q8H PRN (Reason: nausea and vomiting) 5 Days Qty: 15 0RF No Action albuterol sulfate 90 mcg/actuation Hfa Aerosol Inhaler 2 inh INHALATION Q4H PRN (Reason: Shortness Of Breath) 0RF albuterol sulfate 0.63 mg/3 mL solution for nebulization 0.63 mg INHALATION Q8H PRN (Reason: shortness of breath or wheezing) Qty: 90 1RF Vitamin B-12 1 tab PO DAILY 0RF Vitamin C 1 tab PO DAILY 0RF ipratropium bromide 0.02 % solution 2.5 ml inhalation Q6H PRN (Reason: shortness of breath or wheezing) Qty: 62.5 0RF Flovent HFA 110 mcg/actuation HFA aerosol inhaler 2 inh inhalation BID PRN (Reason: asthma) Qty: 12 0RF multivitamin Tablet 1 tab PO DAILY 0RF Flonase Allergy Relief 50 mcg/actuation spray,suspension 2 spray intranasal DAILY PRN (Reason: Allergy Symptoms) 0RF Rx Instructions: administer into each nostril Effexor XR 75 mg capsule,extended release 24hr 75 mg PO DAILY 30 Days Qty: 30 1RF Medrol (Castro) 4 mg tablets,dose pack See Rx Instructions .ROUTE .COMPLEX Qty: 21 0RF Rx Instructions: orally per package directions albuterol sulfate 90 mcg/actuation HFA aerosol inhaler 2 inh INHALATION Q4H PRN (Reason: shortness of breath or wheezing) Qty: 18 0RF Medrol (Castro) 4 mg tablets,dose pack See Rx Instructions PO .COMPLEX Qty: 21 0RF Rx Instructions: orally per package directions methocarbamol 750 mg tablet 750 mg PO TID Qty: 20 0RF methocarbamol 750 mg tablet 750 mg PO TID Qty: 10 0RF prednisone 20 mg tablet 20 mg PO DAILY Qty: 7 0RF ProAir HFA 90 mcg/actuation HFA aerosol inhaler 2 inh inhalation Q4H PRN (Reason: shortness of breath or wheezing) Qty: 6.7 0RF Discharge Orders: Discharge ED (Routine); Ordered 10/16/21 Ordered By: Donaldo Doran Referrals: Shima Tavarez ARC WELDER APPRENTICE [Primary Care Provider] - Coding Level of Care Code ED Rag Cutting Machine Operator for Ko Cabrera
[2021-10-16] MEDS: ondansetron 4 MG Tablet PO (16:07)
[2021-10-16 16:09] VITALS: BP 155/91; PULSE 68; RESP 16; O2SAT 97
== END 2021-10-16 16:12 | disposition home or self-care (01) ==
PROVIDERS: Emergency Provider Emergency Medicine; PCP Nurse Practitioner Family
DX: K52.9 Noninfective gastroenteritis and colitis, unspecified (principal); F17.210 Nicotine dependence, cigarettes, uncomplicated
CPT/HCPCS: 99283; Q0162

== ENCOUNTER 2021-11-30 10:11 | Emergency (ER) | payer SELFPAY ==
--- NOTE | 2021-11-30 10:14 | XRR_ITS ---
PROCEDURE INFORMATION: Exam: XR Left Foot Exam date and time: 11/30/2021 10:22 AM Age: 31 years old Clinical indication: Fall with trauma and pain involving the left foot. Injury date: 11/29/21. TECHNIQUE: Imaging protocol: XR Left foot. Views: 3 or more views. COMPARISON: CR Ankle 3 views, LEFT* [id number] 09/05/2016 11:08 PM FINDINGS: Bones/joints: Plantar and posterior calcaneal spurs. The visualized Achilles tendon is grossly normal in morphology. Tibiotalar joint effusion. Possible nondisplaced intra-articular fracture involving the distal aspect of the proximal phalanx of the great toe. Correlate for tenderness. Soft tissues: Mild dorsal soft tissue swelling. XR/XR foot LT min 3V* [id number] IMPRESSION: 1. Possible nondisplaced intra-articular fracture involving the distal aspect of the proximal phalanx of the great toe. Correlate for tenderness. 2. Mild dorsal soft tissue swelling. 3. Tibiotalar joint effusion. 4. Plantar and posterior calcaneal spurs.
[2021-11-30 10:27] VITALS: BP 147/101; PULSE 77; RESP 18; TEMP 36.6; O2SAT 97; BMI 40.8
--- NOTE | 2021-11-30 10:50 | XRR_ITS ---
PROCEDURE INFORMATION: Exam: XR Left Ankle Exam date and time: 11/30/2021 10:57 AM Age: 31 years old Clinical indication: Left ankle trauma/pain. TECHNIQUE: Imaging protocol: XR Left ankle. Views: 3 or more views. COMPARISON: CR Ankle 3 views, LEFT* [id number] 09/05/2016 11:08 PM FINDINGS: Bones/joints: Probable bone island in the distal tibia. The ankle mortise is symmetric. No osteochondral lesion is seen. Very mild degenerative changes at the tibiotalar joint with small joint effusion. Posterior and plantar calcaneal spurs. The visualized Achilles tendon is grossly normal in morphology. No fracture, dislocation or subluxation. No periosteal reaction or supsicious bone lesion. Soft tissues: There is soft tissue swelling about the ankle. XR/XR ankle LT min 3V* [id number] IMPRESSION: 1. Soft tissue swelling about the ankle. 2. No acute fracture is identified. 3. Very mild degenerative changes at the tibiotalar joint with small joint effusion. 4. Posterior and plantar calcaneal spurs.
--- NOTE | 2021-11-30 10:51 | W.ED.LOWEXIN ---
HPI - Extremity Injury (Lower) General: Chief Complaint: Extremity Injury, Lower Stated Complaint: Left foot injury Time Seen by Provider: 11/30/21 10:14 Source: patient Mode of arrival: ambulatory Limitations: no limitations History of Present Illness: Patient is a 31-year-old female who presents to ED today with a complaint of a left ankle and foot injury that she sustained yesterday after slipping on a wet surface and twisting the foot/ankle. Patient states she has been ambulatory on the extremity but with a limp. No other injuries or concerns at this time. MD complaint: ankle injury and foot injury Onset (ago): day(s) (yesterday) Injury: Left: ankle and foot Place: home Severity: moderate Relieving factors: immobilization Exacerbating factors: weight bearing, movement and palpation Context: other (twisting) Associated symptoms: Reports no associated symptoms Other symptoms: none Review of Systems Musc: Reports: extremity pain (L foot), joint pain (L ankle) and joint swelling (L ankle); Denies: neck pain, back pain, joint redness or joint warmth Neuro: Denies: numbness in extremities or sensory changes PFSH ED PFSH: Medical History Asthma Surgical History No significant past surgical history Social History Smoking and tobacco status: current every day smoker Female Reproductive History: Date of last menstrual period: 04/27/21 Physical Exam Const: COMMON NORMALS: no acute distress, patient oriented x3, no limitations and alert NUTRITIONAL APPEARANCE: obese Extremity: GENERAL: Yes normal exam except as noted LEFT LOWER EXTREMITY: Yes ankle joint (main tenderness located laterally; swelling noted) Left ankle: Yes neurovascular exam (normal) and Yes foot & digits (TTP dorsal foot w/o swelling or deformity) Left foot and digits: Yes neurovascular exam (normal) Neuro: COMMON NORMALS: patient oriented x3, moves all extremities, no focal motor deficits and no sensory deficits noted SENSORIUM/ORIENTATION: Yes alert Skin: TRAUMA: no lacerations or abrasions Course Vital Signs: Vital signs: Vital Signs Temperature 97.8 F 11/30/21 10:27 Pulse Rate 77 11/30/21 10:27 Respiratory Rate 18 11/30/21 10:27 Blood Pressure 147/101 11/30/21 10:27 Pulse Oximetry 97 11/30/21 10:27 MDM - Extremity Injury (Lower) Medical Decision Making XRs of the foot and ankle show a possible nondisplaced intra-articular fracture of the proximal phalanx of her great toe. Patient re-assessed and she has absolutely no clinical tenderness to her great toe. This most likely is a nutrient vessel line. Patient will be treated conservatively with SERENE wrap, crutches, RICE therapy. Recommend follow-up with PCP in 1 week if symptoms are not improving. Lab Data Radiology Impressions Foot X-Ray 11/30/21 10:14 IMPRESSION: 1. Possible nondisplaced intra-articular fracture involving the distal aspect of the proximal phalanx of the great toe. Correlate for tenderness. 2. Mild dorsal soft tissue swelling. 3. Tibiotalar joint effusion. 4. Plantar and posterior calcaneal spurs. Ankle X-Ray 11/30/21 10:50 IMPRESSION: 1. Soft tissue swelling about the ankle. 2. No acute fracture is identified. 3. Very mild degenerative changes at the tibiotalar joint with small joint effusion. 4. Posterior and plantar calcaneal spurs. Discharge Plan Discharge Patient Disposition: Home Clinical Impression: Sprain of ankle, left Qualifiers: Encounter type: initial encounter Involved ligament of ankle: unspecified ligament Qualified Code(s): S93.402A - Sprain of unspecified ligament of left ankle, initial encounter Condition: Stable Prescriptions: No Action albuterol sulfate 90 mcg/actuation Hfa Aerosol Inhaler 2 inh INHALATION Q4H PRN (Reason: Shortness Of Breath) 0RF albuterol sulfate 0.63 mg/3 mL solution for nebulization 0.63 mg INHALATION Q8H PRN (Reason: shortness of breath or wheezing) Qty: 90 1RF Vitamin B-12 1 tab PO DAILY 0RF Vitamin C 1 tab PO DAILY 0RF ipratropium bromide 0.02 % solution 2.5 ml inhalation Q6H PRN (Reason: shortness of breath or wheezing) Qty: 62.5 0RF Flovent HFA 110 mcg/actuation HFA aerosol inhaler 2 inh inhalation BID PRN (Reason: asthma) Qty: 12 0RF multivitamin Tablet 1 tab PO DAILY 0RF Flonase Allergy Relief 50 mcg/actuation spray,suspension 2 spray intranasal DAILY PRN (Reason: Allergy Symptoms) 0RF Rx Instructions: administer into each nostril Effexor XR 75 mg capsule,extended release 24hr 75 mg PO DAILY 30 Days Qty: 30 1RF Medrol (Castro) 4 mg tablets,dose pack See Rx Instructions .ROUTE .COMPLEX Qty: 21 0RF Rx Instructions: orally per package directions albuterol sulfate 90 mcg/actuation HFA aerosol inhaler 2 inh INHALATION Q4H PRN (Reason: shortness of breath or wheezing) Qty: 18 0RF Medrol (Castro) 4 mg tablets,dose pack See Rx Instructions PO .COMPLEX Qty: 21 0RF Rx Instructions: orally per package directions methocarbamol 750 mg tablet 750 mg PO TID Qty: 20 0RF methocarbamol 750 mg tablet 750 mg PO TID Qty: 10 0RF prednisone 20 mg tablet 20 mg PO DAILY Qty: 7 0RF ProAir HFA 90 mcg/actuation HFA aerosol inhaler 2 inh inhalation Q4H PRN (Reason: shortness of breath or wheezing) Qty: 6.7 0RF Discharge Orders: Discharge ED (Routine); Ordered 11/30/21 Ordered By: Carisa Dudley Referrals: Shima Tavarez FNP [Primary Care Provider] - Patient Instructions: Ankle Sprain (DC), RICE Therapy Coding Level of Care Code ED Lug Breaker And Wire Puller for Ko Cabrera
[2021-11-30 11:34] VITALS: BP 152/63; PULSE 78; RESP 16; O2SAT 96
[2021-11-30 11:41] VITALS: BP 152/63; PULSE 67; RESP 16; O2SAT 98
== END 2021-11-30 11:42 | disposition home or self-care (01) ==
PROVIDERS: Emergency Provider Physician Assistant; PCP Nurse Practitioner Family
DX: S93.402A Sprain of unspecified ligament of left ankle, initial encounter (principal); W01.0XXA Fall on same level from slipping, tripping and stumbling without subsequent striking against object, initial encounter
CPT/HCPCS: 73610; 73630; 99283; E0114

== ENCOUNTER 2022-03-06 03:09 | Emergency (ER) | payer SELFPAY ==
[2022-03-06 03:14] VITALS: BP 150/104; PULSE 77; RESP 16; TEMP 36.5; O2SAT 98; BMI 42.9
--- NOTE | 2022-03-06 03:20 | XRR_ITS ---
PROCEDURE INFORMATION: Exam: XR Chest Exam date and time: 03/06/2022 3:27 AM Age: 31 years old Clinical indication: Chest wall pain; Additional info: Pain, nausea, vomiting today TECHNIQUE: Imaging protocol: Radiologic exam of the chest. Views: 1 view. COMPARISON: CR XR chest 1V portable [id number] 07/28/2021 4:27 PM FINDINGS: Lungs: Unremarkable. No consolidation. Pleural spaces: Unremarkable. No pleural effusion. No pneumothorax. Heart/Mediastinum: Unremarkable. No cardiomegaly. Bones/joints: Unremarkable. XR/XR chest 1V portable [id number] IMPRESSION: No acute findings.
--- NOTE | 2022-03-06 03:21 | ED_ITS ---
HPI - COVID General: Chief Complaint: COVID symptoms Stated Complaint: V/N, body aches Time Seen by Provider: 03/06/22 03:17 Source: patient Mode of arrival: ambulatory Limitations: no limitations Triage information: No fever, cough or shortness of breath . No known COVID + exposure last 14 days History of Present Illness: 31-year-old female states over the last 2 days she has been having body aches along with nausea vomiting. States she is also had a slight cough as well. She states she is has not felt very well she denies any worsening improving factors. She denies any chest pain she is in no distress currently. COVID 19 common symptoms: positive non-productive cough, body aches, nausea and vomiting; negative fever(s), chills, dyspnea, headache(s), throat pain or diarrhea COVID 19 other sytmptoms: negative chest pain COVID Results: SARS-CoV-2 Antigen (Rapid) Negative (Negative) 03/06/22 03:38 SARS-CoV-2 RNA (RT-PCR) Not detected (NOT DETECTED) 04/29/20 1 2:31 SARS-CoV-2 (PCR) Not detected (NOT DETECT) 07/28/21 18:35 Coronavirus Type 229E (PCR) Detected (NOT DETECT) A 07/28/21 1 8:35 Review of Systems Const: Reports: body aches; Denies: fever(s), chills or change in appetite Eyes: Denies: blurry vision or eye discomfort ENMT: Denies: throat pain or dental pain Card: Denies: chest pain Resp: Reports: non-productive cough; Denies: dyspnea GI: Reports: nausea and vomiting; Denies: abdominal pain or diarrhea : Denies: dysuria Musc: Denies: neck pain or back pain Skin/Breast: Denies: rash Neuro: Denies: headache(s) Psych: Denies: depression [place]/Lymph: Denies: easy bruising All/Imm: Denies: urticaria PFSH ED PFSH: Medical History Asthma Surgical History No significant past surgical history Social History Smoking and tobacco status: current every day smoker Female Reproductive History: Date of last menstrual period: 04/27/21 Physical Exam Const: COMMON NORMALS: no acute distress, patient oriented x3 and healthy appearing HENMT: COMMON NORMALS: normocephalic and atraumatic HEAD & SCALP: normocephalic and atraumatic Eye: COMMON NORMALS: Equal, round and reactive pupils present and EOMs intact bilaterally PUPIL: Yes Equal, round and reactive pupils present Neck/C-Spine: COMMON NORMALS: full ROM and supple Chest: COMMONS NORMALS: normal inspection of the chest and normal palpation of entire chest wall Resp: COMMON NORMALS: normal respiratory effort, No retractions, No use of accessory muscles and clear to auscultation bilaterally AUSCULTATION: clear to auscultation bilaterally Cardio: COMMON NORMALS: regular rate, regular rhythm and No murmurs present (Cardio) RATE: regular rate RHYTHM: regular rhythm GI: COMMON NORMALS: Normal to inspection, nondistended, normoactive bowel sounds present, Soft to palpation, non-tender and no masses PALPATION: Yes Soft to palpation Extremity: COMMON NORMALS: normal to inspection and full ROM Neuro: COMMON NORMALS: patient oriented x3, moves all extremities and no focal motor deficits Psych: COMMON NORMALS: mental status grossly normal, Normal thought process present and cooperative THOUGHT PROCESS: Normal thought process present Skin: COMMON NORMALS: no rashes or lesions noted and no wounds GENERAL SKIN EXAM: no rashes or lesions noted Course Vital Signs: Vital signs: Vital Signs Temperature 97.7 F 03/06/22 03:14 Pulse Rate 77 03/06/22 03:14 Respiratory Rate 16 03/06/22 03:14 Blood Pressure 150/104 03/06/22 03:14 Pulse Oximetry 93 03/06/22 03:34 Oxygen Delivery Me thod 03/06/22 03:34 MDM - COVID Medical Decision Making Patient presents here with vomiting likely viral in origin she is well-appearing here patient has tolerated p.o. here feels improved after Zofran we will prescribe Zofran for home she is stable for discharge she is to follow-up with PCP and return if worsening. Lab Data : 03/06/22 03:34 03/06/22 03:34 Laboratory Results WBC 10.0 10^3/uL (4.0-10.0) 08/07/22 03:34 RBC 4.77 10^6/uL (4.1-5.3) 03/06/22 03:34 Hgb 15.0 g/dL (11.5-15.3) 03/06/22 03:34 Hct 45.2 % (37.0-47.0) 03/06/22 03:34 MCV 94.8 fl (81-99) 03/06/22 03:34 MCH 31.4 pg (28.0-34.0) 03/06/22 03:34 MCHC 33.2 g/dL (30.0-36.0) 03/06/22 03:34 RDW 12.1 % (12.1-15.1) 03/06/22 03:34 Plt Count 293 10^3/cmm (130-400) 03/06/22 03:34 MPV 10.4 fL (7.4-10.4) 03/06/22 03:34 Neut % (Auto) 51.0 % 03/06/22 03:34 Lymph % (Auto) 33.0 % 03/06/22 03:34 [place] % (Auto) 7.8 % 03/06/22 03:34 Eos % (Auto) 5.8 % 03/06/22 03:34 Baso % (Auto) 1.2 % 03/06/22 03:34 Neut # (Auto) 5.10 10^3/uL (1.8-7.7) 03/06/22 03:34 Lymph # (Auto) 3.3 10^3/uL (0.8-4.8) 03/06/22 03:34 [place] # (Auto) 0.8 10^3/uL (0.2-0.9) 03/06/22 03:34 Eos # (Auto) 0.6 10^3/uL (0.0-0.8) 03/06/22 03:34 Baso # (Auto) 0.1 10^3/uL (0.0-0.1) 03/06/22 03:34 Nucleated RBC % (auto) 0 % 03/06/22 03:34 Nucleated RBCs # 0.0 /100WBC 03/06/22 03:34 Sodium 139 mmol/L (136-145) 03/06/22 03:34 Potassium 3.7 mmol/L (3.5-5.1) 03/06/22 03:34 Chloride 103 mmol/L (98-107) 03/06/22 03:34 Carbon Dioxide 25 mmol/L (22-29) 03/06/22 03:34 Anion Gap 14.7 (5-19) 03/06/22 03:34 BUN 7 mg/dL (6-20) 03/06/22 03:34 Creatinine 0.7 mg/dL (0.5-0.9) 03/06/22 03:34 GFR Calculation 97.6 mL/min (90-130) 03/06/22 03:34 Glucose 101 mg/dL (65-115) 03/06/22 03:34 Calculated Osmolality 286 mOsm/kg (285-295) 03/06/22 03:34 Calcium 9.0 mg/dL (8.5-10.5) 03/06/22 03:34 Total Bilirubin 0.2 mg/dL (0.15-1.2) 03/06/22 03:34 AST 49 U/L (0-32) H 03/06/22 03:34 ALT 62 U/L (0-33) H 03/06/22 03:34 Alkaline Phosphatase 92 IU/L (35-105) 03/06/22 03:34 Total Protein 7.1 g/dL (6.6-8.7) 03/06/22 03:34 Albumin 4.5 g/dL (3.5-5.2) 03/06/22 03:34 Globulin 2.6 g/dL (1.3-4.6) 03/06/22 03:34 Lipase 24 U/L (13-60) 03/06/22 03:34 HCG, Qual Negative (Negative) 03/06/22 03:34 Urine Color Yellow (Yellow) 03/06/22 03:58 Urine Appearance Clear (CLEAR) 03/06/22 03:58 Urine pH 5 (5-7) 03/06/22 03:58 Ur Specific [place] 1.025 (1.005-1.030) 03/06/22 03:58 Urine Protein Trace (Negative) 03/06/22 03:58 Urine Glucose (UA) Norm (Normal) 03/06/22 03:58 Urine Ketones Negative (Negative) 03/06/22 03:58 Urine Blood Neg (Negative) 03/06/22 03:58 Urine Nitrate Negative (Negative) 03/06/22 03:58 Urine Bilirubin Neg (Negative) 03/06/22 03:58 Urine Urobilinogen Neg mg/dL (Negative) 03/06/22 03:58 Ur Leukocyte Esterase Negative (Negative) 03/06/22 03:58 Urine RBC 0-4 /hpf (0-2) H 03/06/22 03:58 Urine WBC 0-4 /hpf (0-5) H 03/06/22 03:58 Ur Squamous Epith Cells 10-15 /hpf (0-5) H 03/06/22 03:58 Amorphous Sediment Not Reportable 03/06/22 03:58 Urine Bacteria 1+ /hpf (NONE) H 03/06/22 03:58 Urine Mucus Trace /hpf 03/06/22 03:58 SARS-CoV-2 Ag (Rapid) Negative (Negative) 03/06/22 03:38 SARS-CoV-2 Antigen (Rapid) Negative (Negative) 03/06/22 03:38 SARS-CoV-2 RNA (RT-PCR) Not detected (NOT DETECTED) 04/29/20 1 2:31 SARS-CoV-2 (PCR) Not detected (NOT DETECT) 07/28/21 18:35 Coronavirus Type 229E (PCR) Detected (NOT DETECT) A 07/28/21 1 8:35 Discharge Plan Discharge Patient Disposition: Home Clinical Impression: Vomiting Qualifiers: Vomiting type: unspecified Nausea presence: with nausea Qualified Code(s): R11.2 - Nausea with vomiting, unspecified Condition: Stable Prescriptions: New ondansetron 4 mg tablet,disintegrating 4 mg PO Q6H PRN (Reason: nausea and vomiting) Qty: 14 0RF No Action albuterol sulfate 90 mcg/actuation Hfa Aerosol Inhaler 2 inh INHALATION Q4H PRN (Reason: Shortness Of Breath) albuterol sulfate 0.63 mg/3 mL solution for nebulization 0.63 mg INHALATION Q8H PRN (Reason: shortness of breath or wheezing) Qty: 90 1RF Vitamin B-12 1 tab PO DAILY Vitamin C 1 tab PO DAILY ipratropium bromide 0.02 % solution 2.5 ml inhalation Q6H PRN (Reason: shortness of breath or wheezing) Qty: 62.5 0RF Flovent HFA 110 mcg/actuation HFA aerosol inhaler 2 inh inhalation BID PRN (Reason: asthma) Qty: 12 0RF multivitamin Tablet 1 tab PO DAILY Flonase Allergy Relief 50 mcg/actuation spray,suspension 2 spray intranasal DAILY PRN (Reason: Allergy Symptoms) Rx Instructions: administer into each nostril Effexor XR 75 mg capsule,extended release 24hr 75 mg PO DAILY 30 Days Qty: 30 1RF Medrol (Castro) 4 mg tablets,dose pack See Rx Instructions .ROUTE .COMPLEX Qty: 21 0RF Rx Instructions: orally per package directions albuterol sulfate 90 mcg/actuation HFA aerosol inhaler 2 inh INHALATION Q4H PRN (Reason: shortness of breath or wheezing) Qty: 18 0RF Medrol (Castro) 4 mg tablets,dose pack See Rx Instructions PO .COMPLEX Qty: 21 0RF Rx Instructions: orally per package directions methocarbamol 750 mg tablet 750 mg PO TID Qty: 20 0RF methocarbamol 750 mg tablet 750 mg PO TID Qty: 10 0RF prednisone 20 mg tablet 20 mg PO DAILY Qty: 7 0RF ProAir HFA 90 mcg/actuation HFA aerosol inhaler 2 inh inhalation Q4H PRN (Reason: shortness of breath or wheezing) Qty: 6.7 0RF Discharge Orders: Discharge ED (Routine); Ordered 03/06/22 Ordered By: Jessenia Hylton Referrals: Shima Tavarez WILDLIFE PHOTOGRAPHER [Primary Care Provider] - 1-3 days Discharge Diet: Advance as tolerated Discharge Activity: Resume usual activity Patient Instructions: Acute Nausea and Vomiting (ED) Stand Alone Forms: Work/School Release Coding Level of Care Code ED Body Rolling Machine Tender for Chg Fwd Exam Comprehensive
[2022-03-06] MEDS: sodium chloride 0.9% 1,000 ML 999 ML IV (03:25)
[2022-03-06 03:34] VITALS: O2SAT 93
[2022-03-06 03:38] LABS: Basophils # 0.1 10^3/uL (0.0-0.1); Basophils % 1.2 %; Eosinophils # 0.6 10^3/uL (0.0-0.8); Eosinophils % 5.8 %; Hematocrit 45.2 % (37.0-47.0); Lymphocytes # 3.3 10^3/uL (0.8-4.8); Mean Corpuscular HGB Conc 33.2 g/dL (30.0-36.0); Mean Corpuscular Hemoglobin 31.4 pg (28.0-34.0); Mean Corpuscular Volume 94.8 fl (81-99); Mean Platelet Volume 10.4 fL (7.4-10.4); Monocytes # 0.8 10^3/uL (0.2-0.9); Monocytes % 7.8 %; Nucleated Red Blood Cells % 0 %; Platelet Count 293 10^3/cmm (130-400); Red Blood Count 4.77 10^6/uL (4.1-5.3); Red Cell Distribution Width 12.1 % (12.1-15.1)
[2022-03-06 03:53] LABS: HCG, Serum Qual Negative (Negative)
[2022-03-06 04:01] LABS: SARS Covid-2 Antigen Negative (Negative)
[2022-03-06 04:05] LABS: Alanine Aminotransferase 62 U/L (0-33); Albumin Level 4.5 g/dL (3.5-5.2); Alkaline Phosphatase 92 IU/L (35-105); Anion Gap 14.7 (5-19); Aspartate Amino Transferase 49 U/L (0-32); Blood Urea Nitrogen 7 mg/dL (6-20); Carbon Dioxide 25 mmol/L (22-29); Chloride 103 mmol/L (98-107); Globulin 2.6 g/dL (1.3-4.6); Glomerular Filtration Rate 97.6 mL/min (90-130); Glucose 101 mg/dL (65-115); Lipase 24 U/L (13-60); Osmolality Calculated 286 mOsm/kg (285-295); Potassium 3.7 mmol/L (3.5-5.1); Sodium 139 mmol/L (136-145); Total Bilirubin 0.2 mg/dL (0.15-1.2); Total Protein 7.1 g/dL (6.6-8.7)
[2022-03-06 04:12] LABS: Add Urine Microscopic? YES; Bilirubin Urine Neg (Negative); Blood Urine Neg (Negative); Glucose Urine UA Norm (Normal); Ketones Urine Negative (Negative); Leukocyte Esterase Urine Negative (Negative); Nitrate Urine Negative (Negative); Protein Urine Trace (Negative); Specific Gravity, Urine 1.025 (1.005-1.030); Urine Appearance Clear (CLEAR); Urine Color Yellow (Yellow); Urobilinogen Urine Neg (Negative); pH Urine 5 (5-7)
[2022-03-06 04:13] LABS: Bacteria Urine 1+ /hpf; RBC Urine 0-4 /hpf (0-2); WBC Urine 0-4 /hpf (0-5)
[2022-03-06 04:14] LABS: Add Urine Culture? No; Mucus Urine TRACE /hpf
[2022-03-06 04:36] VITALS: BP 144/87; PULSE 88; O2SAT 96
== END 2022-03-06 04:38 | disposition home or self-care (01) ==
PROVIDERS: Emergency Provider Emergency Medicine; PCP Nurse Practitioner Family
DX: R11.2 Nausea with vomiting, unspecified (principal); F17.210 Nicotine dependence, cigarettes, uncomplicated; Z20.822 Contact with and (suspected) exposure to COVID-19
CPT/HCPCS: 71045; 80053; 81001; 83690; 84703; 85025; 87426; 96360; 99284; J7030

== ENCOUNTER 2022-05-23 02:28 | Emergency (ER) | payer MEDICAID, SELFPAY ==
[2022-05-23 02:31] VITALS: BP 125/79; PULSE 93; RESP 18; TEMP 37.4; O2SAT 97; BMI 41.8
[2022-05-23 03:36] VITALS: BP 116/54; PULSE 88; RESP 17; O2SAT 96
[2022-05-23 03:55] LABS: Basophils # 0.1 10^3/uL (0.0-0.1); Basophils % 0.8 %; Eosinophils # 0.2 10^3/uL (0.0-0.8); Eosinophils % 3.5 %; Hematocrit 41.1 % (37.0-47.0); Hemoglobin 13.8 g/dL (11.5-15.3); Lymphocytes # 0.4 10^3/uL (0.8-4.8); Lymphocytes % 6.7 %; Mean Corpuscular HGB Conc 33.6 g/dL (30.0-36.0); Mean Corpuscular Hemoglobin 31.7 pg (28.0-34.0); Mean Corpuscular Volume 94.3 fl (81-99); Mean Platelet Volume 10.3 fL (7.4-10.4); Monocytes # 0.4 10^3/uL (0.2-0.9); Monocytes % 7.1 %; Neutrophils # 4.94 10^3/uL (1.8-7.7); Neutrophils % 81.2 %; Nucleated Red Blood Cells % 0 %; Platelet Count 267 10^3/cmm (130-400); Red Blood Count 4.36 10^6/uL (4.1-5.3); White Blood Count 6.1 10^3/uL (4.0-10.0)
[2022-05-23 03:59] VITALS: RESP 17
[2022-05-23] MEDS: sodium chloride 0.9% 1,000 ML 999 ML IV (03:59)
[2022-05-23] MEDS: ondansetron 2 mg/ML SDV 2 mL 4 MG IVP (03:59)
[2022-05-23] MEDS: ketorolac 30 mg/mL INJ 15 MG IVP (03:59)
[2022-05-23] MEDS: morphine 4 mg/mL SDV 1 mL IVP (03:59)
[2022-05-23 04:10] LABS: Add Urine Microscopic? NO; Charge for UA Resulting for Rev
[2022-05-23 04:21] LABS: Alanine Aminotransferase 71 U/L (0-33); Alkaline Phosphatase 86 U/L (35-105); Anion Gap 13.9 (5-19); Aspartate Amino Transferase 67 U/L (0-32); Blood Urea Nitrogen 8 mg/dL (6-20); C Reactive Protein 17.3 mg/L (0.0-4.9); Carbon Dioxide 24 mmol/L (22-29); Chloride 97 mmol/L (98-107); Globulin 3.3 g/dL (1.3-4.6); Glomerular Filtration Rate 97.6 mL/min (90-130); Glucose 89 mg/dL (65-115); Osmolality Calculated 270 mOsm/kg (285-295); Potassium 3.9 mmol/L (3.5-5.1); Sodium 131 mmol/L (136-145); Total Bilirubin 0.4 mg/dL (0.15-1.2); Total Protein 7.3 g/dL (6.6-8.7)
[2022-05-23 04:27] LABS: Urine Appearance Clear (CLEAR); Urine Color Yellow (Yellow)
[2022-05-23 04:28] LABS: Bilirubin Urine Neg (Negative); Blood Urine Neg (Negative); Glucose Urine UA Norm (Normal); Ketones Urine Negative (Negative); Leukocyte Esterase Urine Negative (Negative); Nitrate Urine Negative (Negative); Protein Urine Neg (Negative); Specific Gravity, Urine 1.005 (1.005-1.030); Urobilinogen Urine Neg (Negative); pH Urine 7 (5-7)
[2022-05-23 05:00] VITALS: BP 110/43; PULSE 77; RESP 14; O2SAT 94
[2022-05-23 05:16] LABS: Influenza A by IFA negative (Negative); Influenza B by IFA negative (Negative)
[2022-05-23 05:17] LABS: SARS Covid-2 Antigen negative (Negative)
--- NOTE | 2022-05-23 05:48 | W.ED.FEVER ---
HPI - Fever General: Chief Complaint: Fever Stated Complaint: Fever\Body Aches\Chills Time Seen by Provider: 05/23/22 02:50 Source: patient History of Present Illness: 31 year old female here with fever, body aches, chills. MD elicited complaint: fever Associated symptoms: Reports flank pain, chills, headache(s), nausea and sore throat; Deny cough, nasal congestion, rhinorrhea or vomiting Treatments prior to arrival fever: acetaminophen Review of Systems Const: Reports: chills ENMT: Denies: nasal congestion GI: Reports: nausea; Denies: vomiting : Reports: flank pain Neuro: Reports: headache(s) PFSH ED PFSH: Medical History Asthma Surgical History No significant past surgical history Social History Smoking and tobacco status: current every day smoker Female Reproductive History: Date of last menstrual period: 04/27/21 Physical Exam Const: COMMON NORMALS: no acute distress GENERAL APPEARANCE: cooperative; not ill appearing and not frail appearing HENMT: COMMON NORMALS: normocephalic, atraumatic and Normal external nose present HEAD & SCALP: normocephalic and atraumatic FACE & SINUS: normal facial exam and face symmetric NOSE: Normal external nose present Eye: COMMON NORMALS: Equal, round and reactive pupils present and EOMs intact bilaterally PUPIL: Yes Equal, round and reactive pupils present Neck/C-Spine: GENERAL: Yes trachea midline Chest: CHEST: Yes Symmetrical chest wall rise Resp: COMMON NORMALS: normal respiratory effort, No retractions, No use of accessory muscles and clear to auscultation bilaterally AUSCULTATION: clear to auscultation bilaterally Cardio: COMMON NORMALS: regular rate and regular rhythm RATE: regular rate RHYTHM: regular rhythm GI: COMMON NORMALS: Normal to inspection, nondistended, normoactive bowel sounds present Extremity: COMMON NORMALS: no pedal edema Neuro: MARK COMA SCALE: document GCS findings Mark coma scale eye opening: Spontaneous [place] coma scale verbal response: Orientated Mark coma scale motor response: Obey commands Mark coma scale total score: 15 SENSORY EXAM: Yes extremities (intact) Psych: COMMON NORMALS: speech normal SPEECH: Yes normal speech Skin: COMMON NORMALS: no rashes or lesions noted GENERAL SKIN EXAM: no rashes or lesions noted Course Vital Signs: Vital signs: Vital Signs Temperature 99.4 F 05/23/22 02:31 Pulse Rate 77 05/23/22 06:01 Respiratory Rate 14 05/23/22 06:01 Blood Pressure 110/43 05/23/22 06:01 Pulse Oximetry 94 05/23/22 06:01 Oxygen Delivery Me thod 05/23/22 03:36 MDM - Fever Medical Decision Making Feels improved after IV fluid and medication here. She'll be discharged. Labs are not remarkable. Lab Data : 05/23/22 03:51 05/23/22 03:51 Laboratory Results WBC 6.1 10^3/uL (4.0-10.0) 05/23/22 03:51 RBC 4.36 10^6/uL (4.1-5.3) 05/23/22 03:51 Hgb 13.8 g/dL (11.5-15.3) 05/23/22 03:51 Hct 41.1 % (37.0-47.0) 05/23/22 03:51 MCV 94.3 fl (81-99) 05/23/22 03:51 MCH 31.7 pg (28.0-34.0) 05/23/22 03:51 MCHC 33.6 g/dL (30.0-36.0) 05/23/22 03:51 RDW 12.0 % (12.1-15.1) L 05/23/22 03:51 Plt Count 267 10^3/cmm (130-400) 05/23/22 03:51 MPV 10.3 fL (7.4-10.4) 05/23/22 03:51 Neut % (Auto) 81.2 % 05/23/22 03:51 Lymph % (Auto) 6.7 % 05/23/22 03:51 [place] % (Auto) 7.1 % 05/23/22 03:51 Eos % (Auto) 3.5 % 05/23/22 03:51 Baso % (Auto) 0.8 % 05/23/22 03:51 Neut # (Auto) 4.94 10^3/uL (1.8-7.7) 05/23/22 03:51 Lymph # (Auto) 0.4 10^3/uL (0.8-4.8) L 05/23/22 03:51 [place] # (Auto) 0.4 10^3/uL (0.2-0.9) 05/23/22 03:51 Eos # (Auto) 0.2 10^3/uL (0.0-0.8) 05/23/22 03:51 Baso # (Auto) 0.1 10^3/uL (0.0-0.1) 05/23/22 03:51 Nucleated RBC % (auto) 0 % 05/23/22 03:51 Nucleated RBCs # 0.0 /100WBC 05/23/22 03:51 Sodium 131 mmol/L (136-145) L 05/23/22 03:51 Potassium 3.9 mmol/L (3.5-5.1) 05/23/22 03:51 Chloride 97 mmol/L (98-107) L 05/23/22 03:51 Carbon Dioxide 24 mmol/L (22-29) 05/23/22 03:51 Anion Gap 13.9 (5-19) 05/23/22 03:51 BUN 8 mg/dL (6-20) 05/23/22 03:51 Creatinine 0.7 mg/dL (0.5-0.9) 05/23/22 03:51 GFR Calculation 97.6 mL/min (90-130) 05/23/22 03:51 Glucose 89 mg/dL (65-115) 05/23/22 03:51 Calculated Osmolality 270 mOsm/kg (285-295) L 05/23/22 03:51 Calcium 9.0 mg/dL (8.5-10.5) 05/23/22 03:51 Total Bilirubin 0.4 mg/dL (0.15-1.2) 05/23/22 03:51 AST 67 U/L (0-32) H 05/23/22 03:51 ALT 71 U/L (0-33) H 05/23/22 03:51 Alkaline Phosphatase 86 U/L (35-105) 05/23/22 03:51 C-Reactive Protein 17.3 mg/L (0.0-4.9) H 05/23/22 03:51 Total Protein 7.3 g/dL (6.6-8.7) 05/23/22 03:51 Albumin 4.0 g/dL (3.5-5.2) 05/23/22 03:51 Globulin 3.3 g/dL (1.3-4.6) 05/23/22 03:51 Urine Color Yellow (Yellow) 05/23/22 04:06 Urine Appearance Clear (CLEAR) 05/23/22 04:06 Urine pH 7 (5-7) 05/23/22 04:06 Ur Specific [place] 1.005 (1.005-1.030) 05/23/22 04:06 Urine Protein Neg (Negative) 05/23/22 04:06 Urine Glucose (UA) Norm (Normal) 05/23/22 04:06 Urine Ketones Negative (Negative) 05/23/22 04:06 Urine Blood Neg (Negative) 05/23/22 04:06 Urine Nitrate Negative (Negative) 05/23/22 04:06 Urine Bilirubin Neg (Negative) 05/23/22 04:06 Urine Urobilinogen Neg mg/dL (Negative) 05/23/22 04:06 Ur Leukocyte Esterase Negative (Negative) 05/23/22 04:06 Influenza Type A Ag negative (Negative) 05/23/22 04:56 Influenza Type B Ag negative (Negative) 05/23/22 04:56 SARS-CoV-2 Ag (Rapid) negative (Negative) 05/23/22 04:56 Discharge Plan Discharge Patient Disposition: Home Clinical Impression: Viral infection, Acute febrile illness Condition: Stable Prescriptions: New ketorolac 10 mg tablet 10 mg PO TID PRN (Reason: pain) Qty: 10 0RF ondansetron 4 mg film 4 mg PO DAILY PRN (Reason: nausea and vomiting) Qty: 10 0RF No Action albuterol sulfate 90 mcg/actuation Hfa Aerosol Inhaler 2 inh INHALATION Q4H PRN (Reason: Shortness Of Breath) albuterol sulfate 0.63 mg/3 mL solution for nebulization 0.63 mg INHALATION Q8H PRN (Reason: shortness of breath or wheezing) Qty: 90 1RF Vitamin B-12 1 tab PO DAILY Vitamin C 1 tab PO DAILY ipratropium bromide 0.02 % solution 2.5 ml inhalation Q6H PRN (Reason: shortness of breath or wheezing) Qty: 62.5 0RF Flovent HFA 110 mcg/actuation HFA aerosol inhaler 2 inh inhalation BID PRN (Reason: asthma) Qty: 12 0RF multivitamin Tablet 1 tab PO DAILY Flonase Allergy Relief 50 mcg/actuation spray,suspension 2 spray intranasal DAILY PRN (Reason: Allergy Symptoms) Rx Instructions: administer into each nostril Effexor XR 75 mg capsule,extended release 24hr 75 mg PO DAILY 30 Days Qty: 30 1RF Medrol (Castro) 4 mg tablets,dose pack See Rx Instructions .ROUTE .COMPLEX Qty: 21 0RF Rx Instructions: orally per package directions albuterol sulfate 90 mcg/actuation HFA aerosol inhaler 2 inh INHALATION Q4H PRN (Reason: shortness of breath or wheezing) Qty: 18 0RF Medrol (Castro) 4 mg tablets,dose pack See Rx Instructions PO .COMPLEX Qty: 21 0RF Rx Instructions: orally per package directions methocarbamol 750 mg tablet 750 mg PO TID Qty: 20 0RF methocarbamol 750 mg tablet 750 mg PO TID Qty: 10 0RF prednisone 20 mg tablet 20 mg PO DAILY Qty: 7 0RF ProAir HFA 90 mcg/actuation HFA aerosol inhaler 2 inh inhalation Q4H PRN (Reason: shortness of breath or wheezing) Qty: 6.7 0RF ondansetron 4 mg tablet,disintegrating 4 mg PO Q6H PRN (Reason: nausea and vomiting) Qty: 14 0RF Discharge Orders: Discharge ED (Routine); Ordered 05/23/22 Ordered By: Ruddy De La Cruz Referrals: Shima Tavarez FNP [Primary Care Provider] - 1-3 days Patient Instructions: Fever in Adults (ED), Viral Syndrome (ED) Activity Restrictions/Additional Instructions: Drink plenty of fluids. Check your temperature often. Use medications for control of symptoms. See your doctor in a couple of days for follow-up. Return for worsening shortness of breath, vomiting liquids or medications despite treatment, worsening pain, mental status changes, other concerning symptoms. Coding Level of Care Code ED Manager Test for Ko Cabrera
[2022-05-23 06:01] VITALS: BP 110/43; PULSE 77; RESP 14; O2SAT 94
== END 2022-05-23 06:07 | disposition home or self-care (01) ==
PROVIDERS: Emergency Provider Emergency Medicine; PCP Nurse Practitioner Family
DX: B34.9 Viral infection, unspecified (principal); Z20.822 Contact with and (suspected) exposure to COVID-19; F17.210 Nicotine dependence, cigarettes, uncomplicated
CPT/HCPCS: 80053; 81003; 85025; 86140; 87426; 87804; 96361; 96374; 96375; 99284; J1885; J2270; J2405; J7030

== ENCOUNTER 2022-05-26 11:26 | Emergency (ER) | payer MEDICAID, SELFPAY ==
[2022-05-26 11:30] VITALS: BP 135/92; PULSE 79; RESP 15; TEMP 36.5; O2SAT 95; BMI 41.7
--- NOTE | 2022-05-26 12:09 | W.ED.SKABFB ---
HPI - Skin/Abscess/Foreign Bdy General: Chief complaint: Skin/Abscess/Foreign Body Stated complaint: left hand finger hurting Time Seen by Provider: 05/26/22 11:44 Source: patient Mode of arrival: ambulatory History of Present Illness: 31-year-old female presents to the ER with redness and erythema at along the cuticle medially of the right fourth finger there is some localized swelling and redness no active drainage. No fever sweats chills. Onset (ago): day(s) Tetanus up to date: no Severity: mild Quality: aching and dull Pain Consistency: constant Relieving factors: none Exacerbating factors: none Context: none Associated symptoms: Deny chills or fever(s) Treatments prior to arrival: none Review of Systems Const: Denies: fever(s) or chills [facility] ED PFSH: Medical History Asthma Surgical History No significant past surgical history Social History Smoking and tobacco status: current every day smoker Female Reproductive History: Date of last menstrual period: 05/19/22 Procedures Abscess I/D Site: other (Right fourth finger) Side (if applicable): right (Paronychia incised and drained with the edge of an 18-gauge needle with scant drainage) Complications: pain Course Vital Signs: Vital signs: Vital Signs Temperature 97.7 F 05/26/22 11:30 Pulse Rate 79 05/26/22 11:30 Respiratory Rate 15 05/26/22 11:30 Blood Pressure 135/92 05/26/22 11:30 Pulse Oximetry 95 05/26/22 11:30 Oxygen Delivery Me thod 05/26/22 11:30 MDM - Skin/Abscess/Foreign Bdy Medicial Decision Making No epitrochlear nodes. Patient does have moderate paronychia and there is no significant abscess when we incise and drain it we get a scant amount of purulent fluid even after massaging the area. I do not think at this point antibiotics are indicated. She can use topical mupirocin to the area encourage her to continue to massage the area to prevent recurrent reoccurrence and accumulation of purulence. Follow-up as needed Medical Records I reviewed the patient's medical records. Discharge Plan Discharge Patient Disposition: Home Clinical Impression: Paronychia Condition: Stable Prescriptions: New mupirocin 2 % ointment 1 applic topical BID Qty: 15 0RF No Action albuterol sulfate 90 mcg/actuation Hfa Aerosol Inhaler 2 inh INHALATION Q4H PRN (Reason: Shortness Of Breath) albuterol sulfate 0.63 mg/3 mL solution for nebulization 0.63 mg INHALATION Q8H PRN (Reason: shortness of breath or wheezing) Qty: 90 1RF Vitamin B-12 1 tab PO DAILY Vitamin C 1 tab PO DAILY ipratropium bromide 0.02 % solution 2.5 ml inhalation Q6H PRN (Reason: shortness of breath or wheezing) Qty: 62.5 0RF Flovent HFA 110 mcg/actuation HFA aerosol inhaler 2 inh inhalation BID PRN (Reason: asthma) Qty: 12 0RF multivitamin Tablet 1 tab PO DAILY Flonase Allergy Relief 50 mcg/actuation spray,suspension 2 spray intranasal DAILY PRN (Reason: Allergy Symptoms) Rx Instructions: administer into each nostril Effexor XR 75 mg capsule,extended release 24hr 75 mg PO DAILY 30 Days Qty: 30 1RF Medrol (Castro) 4 mg tablets,dose pack See Rx Instructions .ROUTE .COMPLEX Qty: 21 0RF Rx Instructions: orally per package directions albuterol sulfate 90 mcg/actuation HFA aerosol inhaler 2 inh INHALATION Q4H PRN (Reason: shortness of breath or wheezing) Qty: 18 0RF Medrol (Castro) 4 mg tablets,dose pack See Rx Instructions PO .COMPLEX Qty: 21 0RF Rx Instructions: orally per package directions methocarbamol 750 mg tablet 750 mg PO TID Qty: 20 0RF methocarbamol 750 mg tablet 750 mg PO TID Qty: 10 0RF prednisone 20 mg tablet 20 mg PO DAILY Qty: 7 0RF ProAir HFA 90 mcg/actuation HFA aerosol inhaler 2 inh inhalation Q4H PRN (Reason: shortness of breath or wheezing) Qty: 6.7 0RF ondansetron 4 mg tablet,disintegrating 4 mg PO Q6H PRN (Reason: nausea and vomiting) Qty: 14 0RF ketorolac 10 mg tablet 10 mg PO TID PRN (Reason: pain) Qty: 10 0RF ondansetron 4 mg film 4 mg PO DAILY PRN (Reason: nausea and vomiting) Qty: 10 0RF Discharge Orders: Discharge ED (Routine); Ordered 05/26/22 Ordered By: Josias Guerra Referrals: Shima Tavarez, COMPUTER FORENSICS ANALYST [Primary Care Provider] - Discharge Diet: Usual diet Discharge Activity: Increase activity as tolerated Patient Instructions: Paronychia (ED), Opioid Safety, Pain Management Activity Restrictions/Additional Instructions: Worsens or does not improve follow-up with your primary care provider. Coding Level of Care Code ED Truck Safety Inspector for Ko Cabrera
[2022-05-26] MEDS: tetanus-dipt-pertussis 0.5 mL SDV IM (12:19)
[2022-05-26 12:22] VITALS: BP 135/92; PULSE 83; RESP 15; TEMP 36.5; O2SAT 95
== END 2022-05-26 12:23 | disposition home or self-care (01) ==
PROVIDERS: Emergency Provider Family Medicine; PCP Nurse Practitioner Family
DX: L03.011 Cellulitis of right finger (principal); F17.210 Nicotine dependence, cigarettes, uncomplicated; Z23 Encounter for immunization
CPT/HCPCS: 10060; 90471; 90715; 99283

== ENCOUNTER 2022-06-30 06:11 | Emergency (ER) | payer MEDICAID, SELFPAY ==
[2022-06-30 06:18] VITALS: BMI 41.1
[2022-06-30 06:22] VITALS: BP 155/103; PULSE 85; RESP 18; TEMP 36.5; O2SAT 98
--- NOTE | 2022-06-30 06:35 | W.ED.ABDPA2 ---
HPI - Abdominal Pain General: Chief Complaint: Abdominal Pain Stated Complaint: bowel issues Time Seen by Provider: 06/30/22 06:24 Source: patient History of Present Illness: 31-year-old female presents emergency room with complaint of abdominal pain for the last 5 days. She has tried oral [id number] stool softeners with no relief she has not used any enemas or any laxatives stimulants. She denies hematochezia melena hematemesis Yaneli says any dysuria urgency or frequency states she is simply constipated she is awake and alert otherwise feels fine. Denies any specific pain. Was felt very cramped and bloated due to lack of bowel movement. MD elicited complaint: abdominal pain Pertinent past history: none Onset (ago): day(s) Pain Consistency: intermittent Location: Diffuse Severity: mild Quality: cramping Radiation: none Migration to: no migration Exacerbating factors: nothing Relieving factors: nothing Associated Symptoms: Reports bloating, change in bowel habits, constipation and GI cramping; Denies anorexia, belching, change in stool character, chills, coffee ground emesis, diarrhea, dyspepsia, dysuria, excessive flatus, fever(s), heartburn, hematochezia, hematuria, hematemesis, fecal incontinence, loose stools, melena, nausea, poor appetite, syncope and vomiting Related Data: Date of Last Menstrual Period: 05/31/22 Review of Systems Const: Denies: fever(s) or chills Card: Denies: syncope GI: Reports: abdominal pain, constipation, bloating, GI cramping and change in bowel habits; Denies: nausea, vomiting, hematemesis, coffee ground emesis, heartburn, diarrhea, belching, excessive flatus, fecal incontinence, change in stool character, hematochezia or melena : Denies: difficulty voiding, dysuria, urinary frequency, urinary urgency or hematuria PFSH ED PFSH: Medical History Asthma Surgical History No significant past surgical history Social History Smoking and tobacco status: current every day smoker Female Reproductive History: Date of last menstrual period: 05/31/22 Physical Exam Const: COMMON NORMALS: no acute distress GENERAL APPEARANCE: cooperative and comfortable ORIENTATION/CONSCIOUSNESS: Yes awake, Yes oriented to person, Yes oriented to place and Yes oriented to time HENMT: COMMON NORMALS: normocephalic, atraumatic and hearing grossly normal bilaterally HEAD & SCALP: normocephalic and atraumatic Resp: COMMON NORMALS: normal respiratory effort, No retractions, No use of accessory muscles and clear to auscultation bilaterally AUSCULTATION: clear to auscultation bilaterally Cardio: COMMON NORMALS: regular rate, regular rhythm and No murmurs present (Cardio) RATE: regular rate RHYTHM: regular rhythm GI: COMMON NORMALS: Soft to palpation and No hepatosplenomegaly present AUSCULTATION: Yes normoactive bowel sounds PALPATION: Yes Soft to palpation, No Tenderness to palpation present (GI), No Guarding due to palpation present (GI) and Yes No hepatosplenomegaly present Extremity: COMMON NORMALS: normal to inspection, capillary refill normal, no clubbing, cyanosis or edema, no calf tenderness and no pedal edema Neuro: SENSORIUM/ORIENTATION: Yes oriented to person, Yes oriented to place and Yes oriented to time Skin: COMMON NORMALS: no rashes or lesions noted GENERAL SKIN EXAM: no rashes or lesions noted Course Vital Signs: Vital signs: Vital Signs Temperature 97.7 F 06/30/22 06:22 Pulse Rate 85 06/30/22 06:22 Respiratory Rate 18 06/30/22 06:22 Blood Pressure 155/103 06/30/22 06:22 Pulse Oximetry 98 06/30/22 06:22 Oxygen Delivery Me thod 06/30/22 06:22 MDM - Abdominal Pain Medical Decision Making Exam unremarkable. Patient's only been using stool softeners to relieve her constipation we will have her use lactulose as needed discussed with other things she can use in the future to prevent constipation. After seeing and examining her labs that were initially ordered were all canceled. Medical Records I reviewed the patient's medical records. Lab Data I reviewed the patient's lab results. Discharge Plan Discharge Patient Disposition: Home Clinical Impression: Constipation Condition: Stable Prescriptions: New lactulose 20 gram/30 mL solution 30 ml PO Q2H 1 Days Qty: 360 0RF Rx Instructions: until desired laxative effect No Action albuterol sulfate 90 mcg/actuation Hfa Aerosol Inhaler 2 inh INHALATION Q4H PRN (Reason: Shortness Of Breath) albuterol sulfate 0.63 mg/3 mL solution for nebulization 0.63 mg INHALATION Q8H PRN (Reason: shortness of breath or wheezing) Qty: 90 1RF Vitamin B-12 1 tab PO DAILY Vitamin C 1 tab PO DAILY ipratropium bromide 0.02 % solution 2.5 ml inhalation Q6H PRN (Reason: shortness of breath or wheezing) Qty: 62.5 0RF Flovent HFA 110 mcg/actuation HFA aerosol inhaler 2 inh inhalation BID PRN (Reason: asthma) Qty: 12 0RF multivitamin Tablet 1 tab PO DAILY Flonase Allergy Relief 50 mcg/actuation spray,suspension 2 spray intranasal DAILY PRN (Reason: Allergy Symptoms) Rx Instructions: administer into each nostril Effexor XR 75 mg capsule,extended release 24hr 75 mg PO DAILY 30 Days Qty: 30 1RF Medrol (Castro) 4 mg tablets,dose pack See Rx Instructions .ROUTE .COMPLEX Qty: 21 0RF Rx Instructions: orally per package directions albuterol sulfate 90 mcg/actuation HFA aerosol inhaler 2 inh INHALATION Q4H PRN (Reason: shortness of breath or wheezing) Qty: 18 0RF Medrol (Castro) 4 mg tablets,dose pack See Rx Instructions PO .COMPLEX Qty: 21 0RF Rx Instructions: orally per package directions methocarbamol 750 mg tablet 750 mg PO TID Qty: 20 0RF methocarbamol 750 mg tablet 750 mg PO TID Qty: 10 0RF prednisone 20 mg tablet 20 mg PO DAILY Qty: 7 0RF ProAir HFA 90 mcg/actuation HFA aerosol inhaler 2 inh inhalation Q4H PRN (Reason: shortness of breath or wheezing) Qty: 6.7 0RF ondansetron 4 mg tablet,disintegrating 4 mg PO Q6H PRN (Reason: nausea and vomiting) Qty: 14 0RF ketorolac 10 mg tablet 10 mg PO TID PRN (Reason: pain) Qty: 10 0RF ondansetron 4 mg film 4 mg PO DAILY PRN (Reason: nausea and vomiting) Qty: 10 0RF mupirocin 2 % ointment 1 applic topical BID Qty: 15 0RF Discharge Orders: Discharge ED (Routine); Ordered 06/30/22 Ordered By: Josias Guerra Referrals: Shima Tavarez, BRANCH SERVICE REPRESENTATIVE [Primary Care Provider] - Discharge Diet: Usual diet Discharge Activity: Resume usual activity Patient Instructions: Constipation (ED), Opioid Safety, Pain Management Activity Restrictions/Additional Instructions: You were seen today for constipation. For relief of constipation recommend using lactulose prescribed you can take 1 dose every 2 hours until adequate results are achieved. For prevention of constipation in the future would recommend regular use of stool softener such as Colace Raysa-Colace or fiber additive. You can also use [id number] MiraLAX once daily. Follow-up with your primary care doctor as needed. Coding Level of Care Code ED Csr Retail for Ko Cabrera
== END 2022-06-30 06:49 | disposition home or self-care (01) ==
PROVIDERS: Emergency Provider Family Medicine; PCP Nurse Practitioner Family
DX: K59.00 Constipation, unspecified (principal)
CPT/HCPCS: 99283

== ENCOUNTER 2022-07-12 11:28 | Emergency (ER) | payer BC, MEDICAID, SELFPAY ==
[2022-07-12 11:31] VITALS: BP 162/95; PULSE 83; RESP 17; TEMP 36.6; O2SAT 97; BMI 41.1
--- NOTE | 2022-07-12 11:46 | US_ITS ---
WS: [id number] ULTRASOUND ABDOMEN LIMITED CLINICAL INFORMATION: RUQ abd pain COMPARISON: None. FINDINGS: Liver Size: Enlarged Craniocaudal length: 19.0 cm. Echogenicity: Coarse Surface nodularity: None. Mass (size and location): None. Bile ducts Intrahepatic ducts: Normal. Common bile duct diameter: 0.4 cm. Gallbladder Gallbladder is contracted. Gallstones: None. Gallbladder sludge: None. Gallbladder wall thickening: None. Pericholecystic fluid: None. Sonographic Lombardi sign: Absent. Pancreas Normal as visualized. Right kidney: Normal. Hydronephrosis: None. Size: 10.2 cm x 4.9 cm x 3.7 cm. Abdominal aorta and IVC Visualized portions are normal. Ascites: None. US/US gall bladder [id number] IMPRESSION: 1. Mild hepatomegaly diffuse fatty infiltration. 2. Gallbladder is contracted. Otherwise this is normal in appearance. No gallb ladder wall thickening. 3. Normal common bile duct. 4. No hydronephrosis in RIGHT kidney.
[2022-07-12 12:29] LABS: Basophils # 0.1 10^3/uL (0.0-0.1); Basophils % 0.7 %; Eosinophils # 0.4 10^3/uL (0.0-0.8); Eosinophils % 4.6 %; Hematocrit 39.5 % (37.0-47.0); Lymphocytes # 2.7 10^3/uL (0.8-4.8); Lymphocytes % 27.8 %; Mean Corpuscular HGB Conc 32.9 g/dL (30.0-36.0); Mean Corpuscular Hemoglobin 31.3 pg (28.0-34.0); Mean Platelet Volume 10.6 fL (7.4-10.4); Monocytes # 0.7 10^3/uL (0.2-0.9); Monocytes % 6.8 %; Neutrophils # 5.75 10^3/uL (1.8-7.7); Neutrophils % 59.7 %; Nucleated Red Blood Cells % 0 %; Platelet Count 270 10^3/cmm (130-400); Red Blood Count 4.16 10^6/uL (4.1-5.3); Red Cell Distribution Width 12.3 % (12.1-15.1); White Blood Count 9.6 10^3/uL (4.0-10.0)
--- NOTE | 2022-07-12 12:29 | ED_ITS ---
HPI - Abdominal Pain General: Chief Complaint: Abdominal Pain Stated Complaint: abd pain, n/v Time Seen by Provider: 07/12/22 11:36 Source: patient Mode of arrival: ambulatory History of Present Illness: 31-year-old female presents emergency room with complaints of upper quadrant abdominal pain for last 4 months. She gets bloati ng with it as well. She notes that particular foods will trigger it such as fatty foods. She works at [employer] ate a [employer] today and had onset of right upper quadrant abdominal pain shortly after eating a greasy meal she vomited x1 she does feel better now she also reports frequent acholic loose stools. She has not previously had this evaluated. She has had slightly elevated liver enzymes in the past. MD elicited complaint: abdominal pain Onset (ago): month(s) (4) Pain Consistency: intermittent Location: RUQ Severity: mild Quality: cramping Radiation: none Exacerbating factors: eating (particualar foods) Relieving factors: nothing Associated Symptoms: Reports bloating, GI cramping, diarrhea, loose stools, nausea, poor appetite and vomiting; Denies anorexia, belching, change in bowel habits, change in stool character, chills, coffee ground emesis, constipation, dyspepsia, dysuria, excessive flatu s, fever(s), heartburn, hematochezia, hematuria, hematemesis, fecal incontinence, melena and syncope Related Data: Date of Last Menstrual Period: 05/31/22 Review of Systems Const: Denies: fever(s), chills, fatigue or malaise ENMT: Denies: throat pain, ear or mastoid pain, nasal discharge or nasal congestion Card: Denies: chest pain, palpitations, irregular heart rhythm or syncope Resp: Denies: dyspnea, productive cough or non-productive cough GI: Reports: abdominal pain, nausea, vomiting, diarrhea, bloating and GI cramping; Denies: hematemesis, coffee ground emesis, heartburn, constipation, belching, excessive flatus, fecal incontinence, change in bowel habits, change in stool character, hematochezia or melena : Denies: dysuria or hematuria Skin/Breast: Denies: rash or pruritus PFSH ED PFSH: Medical History Asthma Surgical History No significant past surgical history Social History Smoking and tobacco status: current every day smoker Female Reproductive History: Date of last menstrual period: 05/31/22 Physical Exam Const: GENERAL APPEARANCE: cooperative and comfortable ORIENTATION/CONSCIOUSNESS: Yes awake, Yes oriented to person, Yes oriented to place and Yes oriented to time HENMT: COMMON NORMALS: normocephalic, atraumatic and hearing grossly normal bilaterally HEAD & SCALP: normocephalic and atraumatic Resp: COMMON NORMALS: normal respiratory effort, No retractions, No use of accessory muscles and clear to auscultation bilaterally AUSCULTATION: clear to auscultation bilaterally Cardio: COMMON NORMALS: regular rate, regular rhythm and No murmurs present (Cardio) RATE: regular rate RHYTHM: regular rhythm GI: AUSCULTATION: Yes normoactive bowel sounds PALPATION: Yes Tenderness to palpation present (GI) Details: RUQ and No Guarding due to palpation present (GI) Extremity: COMMON NORMALS: normal to inspection, capillary refill normal, no clubbing, cyanosis or edema, no calf tenderness and no pedal edema Neuro: SENSORIUM/ORIENTATION: Yes oriented to person, Yes oriented to place and Yes oriented to time Skin: COMMON NORMALS: no rashes or lesions noted GENERAL SKIN EXAM: no rashes or lesions noted Course Vital Signs: Vital signs: Vital Signs Temperature 97.8 F 07/12/22 11:31 Pulse Rate 83 07/12/22 11:31 Respiratory Rate 17 07/12/22 11:31 Blood Pressure 162/95 07/12/22 11:31 Pulse Oximetry 97 07/12/22 11:31 Oxygen Delivery Me thod 07/12/22 11:31 MDM - Abdominal Pain Medical Decision Making Ultrasound shows contracted gallbladder no stones no sign obstruction or acute cholecystitis discharge home discussed dietary adjustments to avoid exacerbating gallbladder. We will set her up for HIDA scan and follow-up with general surgery. Labs and imaging reviewed as found in the chart. Medical Records I reviewed the patient's medical records. Lab Data I reviewed the patient's lab results. 07/12/22 12:17 07/12/22 12:17 Labs/Radiology: Radiology Impressions Gallbladder Ultrasound 12/13/22 11:46 IMPRESSION: 1. Mild hepatomegaly diffuse fatty infiltration. 2. Gallbladder is contracted. Otherwise this is normal in appearance. No gallbladder wall thickening. 3. Normal common bile duct. 4. No hydronephrosis in RIGHT kidney. Laboratory Results WBC 9.6 10^3/uL (4.0-10.0) 07/12/22 12:17 RBC 4.16 10^6/uL (4.1-5.3) 07/12/22 12:17 Hgb 13.0 g/dL (11.5-15.3) 07/12/22 12:17 Hct 39.5 % (37.0-47.0) 07/12/22 12:17 MCV 95.0 fl (81-99) 07/12/22 12:17 MCH 31.3 pg (28.0-34.0) 07/12/22 12:17 MCHC 32.9 g/dL (30.0-36.0) 07/12/22 12:17 RDW 12.3 % (12.1-15.1) 07/12/22 12:17 Plt Count 270 10^3/cmm (130-400) 07/12/22 12:17 MPV 10.6 fL (7.4-10.4) H 07/12/22 12:17 Neut % (Auto) 59.7 % 07/12/22 12:17 Lymph % (Auto) 27.8 % 07/12/22 12:17 Yell % (Auto) 6.8 % 07/12/22 12:17 Eos % (Auto) 4.6 % 07/12/22 12:17 Baso % (Auto) 0.7 % 07/12/22 12:17 Neut # (Auto) 5.75 10^3/uL (1.8-7.7) 07/12/22 12:17 Lymph # (Auto) 2.7 10^3/uL (0.8-4.8) 07/12/22 12:17 Yell # (Auto) 0.7 10^3/uL (0.2-0.9) 07/12/22 12:17 Eos # (Auto) 0.4 10^3/uL (0.0-0.8) 07/12/22 12:17 Baso # (Auto) 0.1 10^3/uL (0.0-0.1) 07/12/22 12:17 Nucleated RBC % (auto) 0 % 07/12/22 12:17 Nucleated RBCs # 0.0 /100WBC 07/12/22 12:17 Sodium 138 mmol/L (136-145) 07/12/22 12:17 Potassium 3.7 mmol/L (3.5-5.1) 07/12/22 12:17 Chloride 103 mmol/L (98-107) 07/12/22 12:17 Carbon Dioxide 25 mmol/L (22-29) 07/12/22 12:17 Anion Gap 13.7 (5-19) 07/12/22 12:17 BUN 8 mg/dL (6-20) 07/12/22 12:17 Creatinine 0.6 mg/dL (0.5-0.9) 07/12/22 12:17 GFR Calculation 116.6 mL/min (90-130) 07/12/22 12:17 Glucose 89 mg/dL (65-115) 07/12/22 12:17 Calculated Osmolality 284 mOsm/kg (285-295) L 07/12/22 12:17 Calcium 8.5 mg/dL (8.5-10.5) 07/12/22 12:17 Total Bilirubin 0.2 mg/dL (0.15-1.2) 07/12/22 12:17 AST 43 U/L (0-32) H 07/12/22 12:17 ALT 89 U/L (0-33) H 07/12/22 12:17 Alkaline Phosphatase 96 U/L (35-105) 07/12/22 12:17 Total Protein 6.5 g/dL (6.6-8.7) L 07/12/22 12:17 Albumin 3.8 g/dL (3.5-5.2) 07/12/22 12:17 Globulin 2.7 g/dL (1.3-4.6) 07/12/22 12:17 Lipase 20 U/L (13-60) 07/12/22 12:17 Urine Color Yellow (Yellow) 07/12/22 12:45 Urine Appearance Clear (CLEAR) 07/12/22 12:45 Urine pH 6 (5-7) 07/12/22 12:45 Ur Specific Kaplan 1.020 (1.005-1.030) 07/12/22 12:45 Urine Protein Neg (Negative) 07/12/22 12:45 Urine Glucose (UA) Norm (Normal) 07/12/22 12:45 Urine Ketones Negative (Negative) 07/12/22 12:45 Urine Blood Neg (Negative) 07/12/22 12:45 Urine Nitrate Negative (Negative) 07/12/22 12:45 Urine Bilirubin Neg (Negative) 07/12/22 12:45 Urine Urobilinogen Norm mg/dL (Negative) 07/12/22 12:45 Ur Leukocyte Esterase Negative (Negative) 07/12/22 12:45 Discharge Plan Discharge Patient Disposition: Home Clinical Impression: Biliary colic Condition: Stable Prescriptions: No Action albuterol sulfate 0.63 mg/3 mL solution for nebulization 0.63 mg INHALATION Q8H PRN (Reason: shortness of breath or wheezing) Qty: 90 1RF ipratropium bromide 0.02 % solution 2.5 ml inhalation Q6H PRN (Reason: shortness of breath or wheezing) Qty: 62.5 0RF multivitamin Tablet 1 tab PO DAILY fluticasone propionate [Flonase Allergy Relief] 50 mcg/actuation spray,suspension 2 spray intranasal DAILY PRN (Reason: Allergy Symptoms) Rx Instructions: administer into each nostril albuterol sulfate 90 mcg/actuation HFA aerosol inhaler 2 inh INHALATION Q4H PRN (Reason: shortness of breath or wheezing) Qty: 18 0RF Vitamin C 500 mg Tablet 500 mg PO BID Discharge Orders: Discharge ED (Routine); Ordered 07/12/22 Ordered By: Josias Guerra Referrals: Shima Tavarez FNP [Primary Care Provider] - Discharge Activity: Increase activity as tolerated Patient Instructions: Abdominal Pain (ED), Opioid Safety, Pain Management Activity Restrictions/Additional Instructions: You are seen in the emergency room for right upper quadrant abdominal pain. This likely biliary colic is a slight elevation in your liver enzymes but your bilirubin is normal. We will set you up for an outpatient HIDA scan to further evaluate and follow-up with general surgery. Avoid any fatty foods red meats dairy products or citrus foods. Stand Alone Forms: Work/School Release Coding Level of Care Code ED Forming Machine Upkeep Mechanic Helper for Chg Fwd Exam Detailed
[2022-07-12 12:45] LABS: Alanine Aminotransferase 89 U/L (0-33); Albumin Level 3.8 g/dL (3.5-5.2); Alkaline Phosphatase 96 U/L (35-105); Anion Gap 13.7 (5-19); Aspartate Amino Transferase 43 U/L (0-32); Blood Urea Nitrogen 8 mg/dL (6-20); Calcium 8.5 mg/dL (8.5-10.5); Carbon Dioxide 25 mmol/L (22-29); Chloride 103 mmol/L (98-107); Globulin 2.7 g/dL (1.3-4.6); Glomerular Filtration Rate 116.6 mL/min (90-130); Glucose 89 mg/dL (65-115); Lipase 20 U/L (13-60); Osmolality Calculated 284 mOsm/kg (285-295); Potassium 3.7 mmol/L (3.5-5.1); Sodium 138 mmol/L (136-145); Total Bilirubin 0.2 mg/dL (0.15-1.2); Total Protein 6.5 g/dL (6.6-8.7)
[2022-07-12 13:06] LABS: Add Urine Microscopic? NO; Charge for UA Resulting for Rev
[2022-07-12 13:10] LABS: Bilirubin Urine Neg (Negative); Blood Urine Neg (Negative); Glucose Urine UA Norm (Normal); Ketones Urine Negative (Negative); Leukocyte Esterase Urine Negative (Negative); Nitrate Urine Negative (Negative); Protein Urine Neg (Negative); Urine Appearance Clear (CLEAR); Urine Color Yellow (Yellow); Urobilinogen Urine Norm (Negative); pH Urine 6 (5-7)
--- NOTE | 2022-07-14 10:54 | DCPLANNER ---
Addendum entered by Cecelia Cardenas 09/02/22 13:27: Patient had a follow up appointment scheduled with general surgery - patient did attend appointment. Addendum entered by Cecelia Cardenas 08/10/22 14:41: Patient had a HIDA scan scheduled - patient did attend appointment Patient had a follow up appointment scheduled with general surgery - patient did attend appointment. Addendum entered by Cecelia Cardenas 07/28/22 15:32: Patient has a HIDA scan scheduled for Wednesday, August 10, 2022 at 10:00. Centralized scheduling will call patient with appointment information. Addendum entered by Cecelia Cardenas 07/19/22 13:12: Patient has a follow up appointment scheduled for Monday, August 02, 2021 at 8:[address] Turk at general surgery. Clinic will call patient with appointment information. Original Note: dog races manager had message to schedule a follow up appointment for patient with general surgery. dog races manager sent patients information to the front office staff at general surgery. Patients information will be printed and reviewed. Clinic will call patient with appointment information. dog races manager also had message to schedule an outpatient hida scan for patient. dog races manager faxed signed order to centralized scheduling, who will call patient with appointment information.
== END 2022-07-12 13:22 | disposition home or self-care (01) ==
PROVIDERS: Emergency Provider Family Medicine; PCP Nurse Practitioner Family
DX: K80.50 Calculus of bile duct without cholangitis or cholecystitis without obstruction (principal); F17.210 Nicotine dependence, cigarettes, uncomplicated
CPT/HCPCS: 36415; 76705; 80053; 81003; 83690; 85025; 99284

== ENCOUNTER 2022-08-10 09:37 | Outpatient (CLI) | payer BC, MEDICAID, SELFPAY ==
--- NOTE | 2022-08-10 09:48 | NM_ITS ---
WS: [id number] NUCLEAR MEDICINE HIDA SCAN WITH GALLBLADDER EJECTION FRACTION HISTORY: UPPER QUADRANT ABD PAIN COMPARISON: Gallbladder ultrasound 07/12/2022 TECHNIQUE: The patient was intravenously injected with 8.1 mCi of TC99m Mebrofenin. Immediate imaging over the right upper quadrant was followed by 5 minute image and additional images for a total of 60 minutes. Normal uptake of radiotracer throughout the liver. Activity identified in the gallbladder at 15 minutes and well distended by 60 minutes. Activity in the proximal small bowel was seen by 50 minutes. Good washout of the radiotracer from the liver by 60 minutes. The patient then drank 8 ounces of Ensure Plus. Ejection fraction at 60 minutes was 97%. Normal GB ej ection fraction is 35-75%. Post fatty meal symptoms: None. NM/NM hepatobiliary w phar* [id number] IMPRESSION: 1. Normal HIDA scan. 2. Normal gallbladder ejection fraction.
== END 2022-08-10 09:38 | disposition home or self-care (01) ==
LOC: RAD 09:41
PROVIDERS: PCP Nurse Practitioner Family; Visit Provider Family Medicine
DX: R10.11 Right upper quadrant pain (principal)
CPT/HCPCS: 78227; A9537

== ENCOUNTER 2022-08-26 09:15 | Emergency (ER) | payer BC, MEDICAID, SELFPAY ==
[2022-08-26 09:19] VITALS: BP 160/108; PULSE 65; RESP 18; TEMP 36.7; O2SAT 97
--- NOTE | 2022-08-26 09:32 | XR_ITS ---
WS: [id number] Exam: XR chest 1V portable [id number] Date/Time of Exam: 08/26/2022 9:41 AM Reason For Exam: sob. cough Comparison 03/06/2022. Findings: The lungs are clear and fully expanded. Costophrenic angles are sharp. No infiltrates. Bronchovascula r relief appears normal. Cardiac silhouette is unremarkable. Bony elements are intact. XR/XR chest 1V portable [id number] IMPRESSION: Unremarkable chest radiograph.
--- NOTE | 2022-08-26 09:32 | W.ED.URI ---
HPI - URI/Sore Throat General: Chief Complaint: Shortness of Breath/Dyspnea Stated Complaint: SOB, cough Time Seen by Provider: 08/26/22 09:25 Source: patient Mode of arrival: ambulatory Limitations: no limitations History of Present Illness: Patient is a 31-year-old female who presents to the ED today with a complaint of nasal congestion, sinus pain/pressure, chest congestion, cough, shortness of breath and wheezing. She states symptoms have been present over the past week or so. She states she was recently seen in urgent care and put on a 5-day burst steroid pack which did not seem to help with symptoms. She states she has been using her rescue inhaler more often and is now out of this. She has not been running fevers. She states urgent care tested her for influenza and COVID both of which were negative. MD elicited complaint: cough, nasal congestion and sinus pain Onset (ago): week(s) Consistency: constant Severity: moderate Description of mucous: clear Able to tolerate fluids by mouth: Yes Exacerbating factors: nothing Relieving factors: nothing Associated symptoms: Reports congestion, cough, nasal congestion and sinus pain; Deny abdominal pain, chills, chest pain, ear or mastoid pain, fever(s), headache(s), nausea or vomiting Treatments prior to arrival: other (steroids) Review of Systems Const: Denies: fever(s), chills, body aches, fatigue or malaise ENMT: Reports: nasal discharge, nasal congestion and sinus pain; Denies: throat pain, odynophagia or ear or mastoid pain Card: Denies: chest pain, palpitations, irregular heart rhythm, edema, swelling of feet/ankles, lightheadedness, syncope, pre-syncope or orthopnea Resp: Reports: dyspnea, productive cough, wheezing and chest congestion; Denies: pain on inspiration or hemoptysis GI: Denies: abdominal pain, nausea or vomiting Musc: Denies: neck pain or back pain Skin/Breast: Denies: rash Neuro: Denies: headache(s) or dizziness PFS ED PFSH: Medical History Asthma Surgical History History of tonsillectomy and adenoidectomy Hx of colonoscopy AGE 18 No significant past surgical history Social History Smoking and tobacco status: current every day smoker Alcohol intake: current Alcohol intake frequency: holidays/special occasions only Female Reproductive History: Date of last menstrual period: 05/31/22 Physical Exam Const: COMMON NORMALS: no acute distress, patient oriented x3, no limitations and alert GENERAL APPEARANCE: cooperative NUTRITIONAL APPEARANCE: obese ORIENTATION/CONSCIOUSNESS: Yes awake, Yes oriented to person, Yes oriented to place and Yes oriented to time HENMT: COMMON NORMALS: normocephalic, atraumatic, hearing grossly normal bilaterally, external ears normal, EAC's normal, TM's normal bilaterally, Normal external nose present, Normal nasal mucous membranes and turbinates present, moist oral mucous membranes, oropharynx normal and gingiva normal HEAD & SCALP: normal to inspection, normocephalic and atraumatic FACE & SINUS: sinus tenderness NOSE: Normal external nose present and Normal nasal mucous membranes and turbinates present EXTERNAL EAR: Yes external ears normal EXTERNAL AUDITORY CANAL: EAC's normal TYMPANIC MEMBRANE: TM's normal bilaterally MOUTH: Normal oral and palatal mucosa present, lip normal and tongue normal THROAT: posterior oropharynx normal, tonsils normal and uvula midline Eye: GENERAL EYE: appearance normal, both eyes and all related structures Neck/C-Spine: COMMON NORMALS: full ROM and no lymphadenopathy Resp: COMMON NORMALS: normal respiratory effort EFFORT & INSPECTION: Yes able to speak in complete sentences AUSCULTATION: wheezes scattered wheezes Cardio: COMMON NORMALS: regular rate and regular rhythm RATE: regular rate RHYTHM: regular rhythm Neuro: COMMON NORMALS: patient oriented x3 SENSORIUM/ORIENTATION: Yes alert, Yes oriented to person, Yes oriented to place and Yes oriented to time Course Vital Signs: Vital signs: Vital Signs Temperature 98.0 F 08/26/22 09:19 Pulse Rate 65 08/26/22 09:19 Respiratory Rate 18 08/26/22 09:19 Blood Pressure 160/108 08/26/22 09:19 Pulse Oximetry 97 08/26/22 09:19 Oxygen Delivery Me thod 08/26/22 09:19 MDM - URI/Sore Throat Medical Decision Making Will place patient on antibiotics, steroid taper, and refill her albuterol inhaler. Recommend follow-up with PCP in 1 week if symptoms do not seem to be improving. Return to ED precautions verbally discussed with patient who voiced understanding. Lab Data Radiology Impressions Chest X-Ray 08/26/22 09:32 IMPRESSION: Unremarkable chest radiograph. Discharge Plan Discharge Patient Disposition: Home Clinical Impression: Bronchitis, Asthma with exacerbation Condition: Stable Prescriptions: New prednisone 10 mg tablet 10 mg PO DAILY 10 Days Qty: 27 0RF Rx Instructions: 6 tabs on days 1-2, 5 tabs on day 3, 4 tabs on day 4, 3 tabs on day 5, 2 tabs on day 6, 1 tab on day 7 doxycycline monohydrate 100 mg capsule 100 mg PO Q12H 10 Days Qty: 20 0RF Continued albuterol sulfate 90 mcg/actuation HFA aerosol inhaler 2 inh INHALATION Q4H PRN (Reason: shortness of breath or wheezing) Qty: 8.5 0RF No Action albuterol sulfate 0.63 mg/3 mL solution for nebulization 0.63 mg INHALATION Q8H PRN (Reason: shortness of breath or wheezing) Qty: 90 1RF ipratropium bromide 0.02 % solution 2.5 ml inhalation Q6H PRN (Reason: shortness of breath or wheezing) Qty: 62.5 0RF multivitamin Tablet 1 tab PO DAILY fluticasone propionate [Flonase Allergy Relief] 50 mcg/actuation spray,suspension 2 spray intranasal DAILY PRN (Reason: Allergy Symptoms) Rx Instructions: administer into each nostril Vitamin C 500 mg Tablet 500 mg PO BID Discharge Orders: Discharge ED (Routine); Ordered 08/26/22 Ordered By: Carisa Dudley Referrals: Shima Tavarez FNP [Primary Care Provider] - Stand Alone Forms: Work/School Release Coding Level of Care 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
== END 2022-08-26 10:06 | disposition home or self-care (01) ==
PROVIDERS: Emergency Provider Physician Assistant; PCP Nurse Practitioner Family
DX: J45.901 Unspecified asthma with (acute) exacerbation (principal); F17.210 Nicotine dependence, cigarettes, uncomplicated
CPT/HCPCS: 71045; 99283

== ENCOUNTER 2022-09-08 05:51 | Emergency (ER) | payer BC, MEDICAID, SELFPAY ==
[2022-09-08 05:55] VITALS: BMI 42.0
[2022-09-08 05:57] VITALS: BP 141/80; PULSE 76; RESP 18; TEMP 36.1; O2SAT 96
[2022-09-08 06:15] VITALS: BP 133/96; PULSE 68; O2SAT 97
--- NOTE | 2022-09-08 06:31 | W.ED.ABDPA2 ---
HPI - Abdominal Pain General: Chief Complaint: Abdominal Pain Stated Complaint: abd pain Time Seen by Provider: 09/08/22 06:14 Source: patient Mode of arrival: ambulatory History of Present Illness: 31-year-old female with history of biliary dyskinesia presents to the emergency room with complaints of abdominal pain and diarrhea. Symptoms began last night shortly after a meal. Some bothering her all through the night. She denies any vomiting. Most of her pain is focused in the right upper quadrant. She is worked up in the past for biliary colic HIDA scan was hyperactive with high and ejection fraction she is actually scheduled in 4 days to have a cholecystectomy electively as an outpatient with Dr. Turk. She denies any hematochezia melena hematemesis or coffee-ground emesis last night MD elicited complaint: abdominal pain Onset (ago): hour(s) Pain Consistency: constant Location: RUQ Severity: severe Quality: cramping Radiation: R flank and back Exacerbating factors: nothing Relieving factors: nothing Associated Symptoms: Reports bloating, change in bowel habits, change in stool character, GI cramping, diarrhea and poor appetite; Denies anorexia, belching, chills, coffee ground emesis, constipation, dyspepsia, dysuria, excessive flatus, fever(s), heartburn, hematochezia, hematuria, hematemesis, fecal incontinence, loose stools, melena, nausea, syncope and vomiting Related Data: Date of Last Menstrual Period: 05/31/22 Review of Systems Const: Denies: fever(s) or chills ENMT: Denies: throat pain, ear or mastoid pain, nasal discharge or nasal congestion Card: Denies: syncope Resp: Denies: dyspnea, productive cough or non-productive cough GI: Reports: diarrhea, bloating, GI cramping, change in bowel habits and change in stool character; Denies: nausea, vomiting, hematemesis, coffee ground emesis, heartburn, constipation, belching, excessive flatus, fecal incontinence, hematochezia or melena : Denies: dysuria or hematuria Skin/Breast: Denies: rash or pruritus [facility], [facility] ED PFSH: Medical History (Updated 09/08/22 @ 09:49 by Josias Guerra DO) Asthma Biliary dyskinesia Depression Surgical History History of tonsillectomy and adenoidectomy Hx of colonoscopy AGE 18 No significant past surgical history Social History Smoking and tobacco status: current every day smoker Alcohol intake: current Alcohol intake frequency: holidays/special occasions only Female Reproductive History: Date of last menstrual period: 05/31/22 Physical Exam Const: GENERAL APPEARANCE: cooperative and comfortable ORIENTATION/CONSCIOUSNESS: Yes awake, Yes oriented to person, Yes oriented to place and Yes oriented to time HENMT: COMMON NORMALS: normocephalic, atraumatic and hearing grossly normal bilaterally HEAD & SCALP: normocephalic and atraumatic Resp: COMMON NORMALS: normal respiratory effort, No retractions, No use of accessory muscles and clear to auscultation bilaterally AUSCULTATION: clear to auscultation bilaterally Cardio: COMMON NORMALS: regular rate, regular rhythm and No murmurs present (Cardio) RATE: regular rate RHYTHM: regular rhythm GI: COMMON NORMALS: Soft to palpation and No hepatosplenomegaly present AUSCULTATION: Yes normoactive bowel sounds PALPATION: Yes Soft to palpation, No Tenderness to palpation present (GI), No Guarding due to palpation present (GI) and Yes No hepatosplenomegaly present Extremity: COMMON NORMALS: normal to inspection, capillary refill normal, no clubbing, cyanosis or edema, no calf tenderness and no pedal edema Neuro: SENSORIUM/ORIENTATION: Yes oriented to person, Yes oriented to place and Yes oriented to time Skin: COMMON NORMALS: no rashes or lesions noted GENERAL SKIN EXAM: no rashes or lesions noted Course Vital Signs: Vital signs: Vital Signs Temperature 97.0 F L 09/08/22 05:57 Pulse Rate 74 09/08/22 06:50 Respiratory Rate 16 09/08/22 06:50 Blood Pressure 133/83 09/08/22 07:35 Pulse Oximetry 98 09/08/22 07:35 Oxygen Delivery Me thod 09/08/22 07:35 MDM - Abdominal Pain Medical Decision Making Labs reviewed. Previous imaging on the chart reviewed as well as consultation with Dr. Turk. Patient AOS start feeling foods to trigger her biliary dyskinesia her symptoms are better now will discharge home I encouraged a very bland diet she has cholecystectomy scheduled return if has further problems Medical Records I reviewed the patient's medical records. Lab Data I reviewed the patient's lab results. 09/08/22 06:34 09/08/22 06:34 Labs/Radiology: Laboratory Results WBC 6.8 10^3/uL (4.0-10.0) 09/08/22 06:34 RBC 4.41 10^6/uL (4.1-5.3) 09/08/22 06:34 Hgb 13.7 g/dL (11.5-15.3) 09/08/22 06:34 Hct 42.2 % (37.0-47.0) 09/08/22 06:34 MCV 95.7 fl (81-99) 09/08/22 06:34 MCH 31.1 pg (28.0-34.0) 09/08/22 06:34 MCHC 32.5 g/dL (30.0-36.0) 09/08/22 06:34 RDW 12.4 % (12.1-15.1) 09/08/22 06:34 Plt Count 252 10^3/cmm (130-400) 09/08/22 06:34 MPV 10.9 fL (7.4-10.4) H 09/08/22 06:34 Neut % (Auto) 48.7 % 09/08/22 06:34 Lymph % (Auto) 37.6 % 09/08/22 06:34 [place] % (Auto) 7.0 % 09/08/22 06:34 Eos % (Auto) 4.8 % 09/08/22 06:34 Baso % (Auto) 0.9 % 09/08/22 06:34 Neut # (Auto) 3.31 10^3/uL (1.8-7.7) 09/08/22 06:34 Lymph # (Auto) 2.6 10^3/uL (0.8-4.8) 09/08/22 06:34 [place] # (Auto) 0.5 10^3/uL (0.2-0.9) 09/08/22 06:34 Eos # (Auto) 0.3 10^3/uL (0.0-0.8) 09/08/22 06:34 Baso # (Auto) 0.1 10^3/uL (0.0-0.1) 09/08/22 06:34 Nucleated RBC % (auto) 0 % 09/08/22 06:34 Nucleated RBCs # 0.0 /100WBC 09/08/22 06:34 Sodium 138 mmol/L (136-145) 09/08/22 06:34 Potassium 3.7 mmol/L (3.5-5.1) 09/08/22 06:34 Chloride 105 mmol/L (98-107) 09/08/22 06:34 Carbon Dioxide 23 mmol/L (22-29) 09/08/22 06:34 Anion Gap 13.7 (5-19) 09/08/22 06:34 BUN 8 mg/dL (6-20) 09/08/22 06:34 Creatinine 0.7 mg/dL (0.5-0.9) 09/08/22 06:34 GFR Calculation 97.6 mL/min (90-130) 09/08/22 06:34 Glucose 88 mg/dL (65-115) 09/08/22 06:34 Calculated Osmolality 284 mOsm/kg (285-295) L 09/08/22 06:34 Calcium 8.4 mg/dL (8.5-10.5) L 09/08/22 06:34 Total Bilirubin 0.5 mg/dL (0.15-1.2) 09/08/22 06:34 AST 58 U/L (0-32) H 09/08/22 06:34 ALT 70 U/L (0-33) H 09/08/22 06:34 Alkaline Phosphatase 71 U/L (35-105) 09/08/22 06:34 Total Protein 6.5 g/dL (6.6-8.7) L 09/08/22 06:34 Albumin 4.1 g/dL (3.5-5.2) 09/08/22 06:34 Globulin 2.4 g/dL (1.3-4.6) 09/08/22 06:34 Lipase 20 U/L (13-60) 09/08/22 06:34 HCG, Qual Negative (Negative) 09/08/22 06:34 Discharge Plan Discharge Patient Disposition: Home Clinical Impression: Biliary dyskinesia Condition: Stable Prescriptions: New hydrocodone-acetaminophen 5-325 mg tablet 1 tab PO Q6H PRN (Reason: pain) Qty: 20 0RF promethazine 25 mg tablet 25 mg PO Q6H PRN (Reason: nausea and vomiting) Qty: 20 0RF No Action albuterol sulfate 0.63 mg/3 mL solution for nebulization 0.63 mg INHALATION Q8H PRN (Reason: shortness of breath or wheezing) Qty: 90 1RF multivitamin Tablet 1 tab PO DAILY fluticasone propionate [Flonase Allergy Relief] 50 mcg/actuation spray,suspension 2 spray intranasal DAILY PRN (Reason: Allergy Symptoms) Rx Instructions: administer into each nostril ascorbic acid (vitamin C) [Vitamin C] 500 mg Tablet 500 mg PO BID albuterol sulfate 90 mcg/actuation HFA aerosol inhaler 2 inh INHALATION Q4H PRN (Reason: shortness of breath or wheezing) Qty: 8.5 0RF Discharge Orders: Discharge ED (Routine); Ordered 09/08/22 Ordered By: Josias Guerra Referrals: Shima Tavarez, SURVEILLANCE OPERATOR [Primary Care Provider] - Discharge Diet: As Directed Discharge Activity: Increase activity as tolerated Patient Instructions: Biliary Dyskinesia (DC), Opioid Safety, Pain Management Activity Restrictions/Additional Instructions: Keep appointment with Dr. Turk for cholecystectomy as scheduled. 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
[2022-09-08 06:36] VITALS: RESP 16; O2SAT 98
[2022-09-08] MEDS: morphine 4 mg/mL SDV 1 mL IVP (06:36)
[2022-09-08] MEDS: promethazine 25 mg/mL SDV 1 mL IM (06:36)
[2022-09-08] MEDS: sodium chloride 0.9% 1,000 ML 999 ML IV (06:37)
[2022-09-08 06:50] VITALS: BP 140/79; PULSE 74; RESP 16; O2SAT 97
[2022-09-08 06:56] LABS: Basophils # 0.1 10^3/uL (0.0-0.1); Basophils % 0.9 %; Eosinophils # 0.3 10^3/uL (0.0-0.8); Eosinophils % 4.8 %; Hematocrit 42.2 % (37.0-47.0); Hemoglobin 13.7 g/dL (11.5-15.3); Lymphocytes # 2.6 10^3/uL (0.8-4.8); Lymphocytes % 37.6 %; Mean Corpuscular HGB Conc 32.5 g/dL (30.0-36.0); Mean Corpuscular Hemoglobin 31.1 pg (28.0-34.0); Mean Corpuscular Volume 95.7 fl (81-99); Mean Platelet Volume 10.9 fL (7.4-10.4); Monocytes # 0.5 10^3/uL (0.2-0.9); Neutrophils # 3.31 10^3/uL (1.8-7.7); Neutrophils % 48.7 %; Nucleated Red Blood Cells % 0 %; Platelet Count 252 10^3/cmm (130-400); Red Blood Count 4.41 10^6/uL (4.1-5.3); Red Cell Distribution Width 12.4 % (12.1-15.1); White Blood Count 6.8 10^3/uL (4.0-10.0)
[2022-09-08 07:13] LABS: HCG, Serum Qual Negative (Negative)
[2022-09-08 07:22] LABS: Alanine Aminotransferase 70 U/L (0-33); Albumin Level 4.1 g/dL (3.5-5.2); Alkaline Phosphatase 71 U/L (35-105); Anion Gap 13.7 (5-19); Aspartate Amino Transferase 58 U/L (0-32); Blood Urea Nitrogen 8 mg/dL (6-20); Calcium 8.4 mg/dL (8.5-10.5); Carbon Dioxide 23 mmol/L (22-29); Chloride 105 mmol/L (98-107); Globulin 2.4 g/dL (1.3-4.6); Glomerular Filtration Rate 97.6 mL/min (90-130); Glucose 88 mg/dL (65-115); Lipase 20 U/L (13-60); Osmolality Calculated 284 mOsm/kg (285-295); Potassium 3.7 mmol/L (3.5-5.1); Sodium 138 mmol/L (136-145); Total Bilirubin 0.5 mg/dL (0.15-1.2); Total Protein 6.5 g/dL (6.6-8.7)
[2022-09-08 07:35] VITALS: BP 133/83; O2SAT 98
== END 2022-09-08 10:16 | disposition home or self-care (01) ==
PROVIDERS: Emergency Provider Family Medicine; PCP Nurse Practitioner Family
DX: K82.8 Other specified diseases of gallbladder (principal); F17.210 Nicotine dependence, cigarettes, uncomplicated
CPT/HCPCS: 80053; 83690; 84703; 85025; 96361; 96372; 96374; 99284; J2270; J2550; J7030

== ENCOUNTER 2022-09-12 08:11 | Day surgery (SDC) | payer BC, MEDICAID, SELFPAY ==
[2022-09-08 16:03] VITALS: BMI 42.0
[2022-09-12] VITALS (14 sets, daily range): BP systolic 105–147; BP diastolic 62–105; PULSE 58–72; RESP 14–20; TEMP 36.3–36.8; O2SAT 91–99
[2022-09-12 08:44] LABS: OR HCG Qualitative Urine Negative (Negative)
[2022-09-12] MEDS: sodium chloride 0.9% 1,000 ML 30 ML IV (09:17)
[2022-09-12] MEDS: ondansetron 2 mg/ML SDV 2 mL 4 MG IVP (09:52)
[2022-09-12] MEDS: scopolamine 1.5 Patch 1 PATCH TRANSDERMA (09:53)
[2022-09-12] MEDS: diphenhydrAMINE 50 mg/mL SDV 1mL 12.5 MG IVP (10:03)
--- NOTE | 2022-09-12 10:04 | ANES.PREANE2 ---
Pre-Anesthetic Assessment Height/Weight: Height 1.63 m Weight 111.13 kg Temp Pulse Resp BP Pulse Ox O2 Del Method 97.4 F L 71 16 144/105 96 09/12/22 08:30 09/12/22 08:30 09/12/22 08:30 09/12/22 08:30 09/12/22 08:30 09/12/22 08:45 Preop Diagnosis: Biliary dyskinesia Operation Date: 09/12/22 10:00 Proposed Procedures p Laparoscopic Cholecystectomy 14230,K82.8(Not Applicable) - Markus Turk DO Familial anesthetic complications: none Was Beta Ruma taken within 24 hours: N/A Was Clonidine taken within 24 hours: N/A Last intake: Intake Last Liquid Date 09/11/22 Last Liquid Time 18:00 Last Solid Date 09/11/22 Last Solid Time 18:00 Social Alcohol and Tobacco Exam alert, oriented x 3 and regular rate & rhythm Airway Submandibular: within normal limits Cervical ROM: within normal limits Mallampati: Class II Dentition: full Pulmonary Asthma Metabolic Morbid Obesity Neuropsych Anxiety and Depression Anesthetic Plan ASA status: 3 Anesthesia: General Medications/Allergies Home Medications Medication Instructions Recorded Confirmed Last Taken Type albuterol sulfate 0.63 mg/3 mL 0.63 mg (3 mL) inhalation Q8H PRN 09/27/19 09/08/22 09/04/22 Rx solution for nebulization shortness of breath or wheezing #90 mL fluticasone propionate 50 2 spray intranasal DAILY PRN 04/19/21 09/08/22 09/08/22 History mcg/actuation nasal Allergy Symptoms spray,suspension (Flonase Allergy Relief) multivitamin 1 tab PO DAILY 04/19/21 09/08/22 09/11/22 History ascorbic acid (vitamin C) 500 mg 500 mg PO BID 07/12/22 09/08/22 09/11/22 History tablet (Vitamin C) albuterol sulfate 90 mcg/actuation 2 inh inhalation Q4H PRN shortness 08/26/22 09/08/22 09/12/22 06:00 Rx aerosol inhaler of breath or wheezing #8.5 grams hydrocodone 5 mg-acetaminophen 325 1 tab PO Q6H PRN pain #20 tabs 09/08/22 09/08/22 09/11/22 Rx mg tablet promethazine 25 mg tablet 25 mg PO Q6H PRN nausea and 09/08/22 09/08/22 Unknown Rx vomiting #20 tabs Allergies Allergy/AdvReac Type Severity Reaction Status Date / Time aspirin Allergy Unknown Verified 09/08/22 08:59 Current Medications Generic Name Dose Route Start Last Admin Trade Name Freq PRN Reason Stop Dose Admin Sodium Chloride 1,000 mls @ 30 mls/hr 09/12/22 08:30 09/12/22 09:17 Sodium Chloride 0.9% IV 09/13/22 08:29 30 mls/hr .Q24H TAI Administration Ondansetron HCl 4 mg 09/12/22 08:19 09/12/22 09:52 Ondansetron 2 Mg/Ml Sdv 2 Ml IVP 4 mg Q5M PRN Administration NAUSEA AND VOMITING PFSH Anesthesia Medical History (Updated 09/08/22 @ 09:49 by Josias Guerra DO) Asthma Biliary dyskinesia Depression Surgical History History of tonsillectomy and adenoidectomy Hx of colonoscopy AGE 18 No significant past surgical history Social History Smoking and tobacco status: current every day smoker Alcohol intake: current Alcohol intake frequency: holidays/special occasions only Female Reproductive History Date of last menstrual period: 05/31/22 Data Anesthesia Cardiac Studies: No Data to Display
--- NOTE | 2022-09-12 10:59 | W.PM.OPSUD ---
Surgery/Procedure H&P Update DATE OF PROCEDURE: September 12, 2022 DATE H&P PERFORMED: 08/19/22 PREOP DIAGNOSIS: Biliary dyskinesia PLANNED PROCEDURE: Operation Date: 09/12/22 10:00 Proposed Procedures p Laparoscopic Cholecystectomy 69566,K82.8(Not Applicable) - Markus Turk DO
[2022-09-12] MEDS: ceFAZolin 2,000 MG in sodium chloride 0.9% (plus) 50 ML 100 MG IV (11:16)
[2022-09-12] MEDS: lidocaine-epi 2% PF 1:200,000 10 mL SDV 20 ML XX (11:46)
--- NOTE | 2022-09-12 12:22 | P.OP_ITS ---
Operative Report Date of procedure: September 12, 2022 Pre-op diagnosis: Preop Diagnosis Biliary dyskinesia Post-op diagnosis: same Procedure done: Laparoscopic cholecystectomy Specimens removed/disposition: Gallbladder Surgeon: Dr. Markus Turk DO Anesthesia: General Complications: None apparent Brief History: This very pleasant 32-year-old female who was diagnosed with biliary dyskinesia. Laparoscopic cholecystectomy was indicated. The risk and benefits were explained and documented. Procedure: Patient was wheeled into the operative room and placed on the OR table in a supine position. Abdomen was inspected prepped and draped in usual sterile fashion. Time-out was performed and all present were in agreement. A 15 blade scalp was used to make a stab incision in the left upper quadrant and intra- abdominal insufflation was achieved using a Veress needle. After localizing the tissue incisions were made and a 5 millimeter trocar was placed into the umbilicus as well as 2 in the right upper quadrant. A 12 millimeter trocar was placed in the epigastrium. Gallbladder was grasped and elevated. The triangle of Calot was carefully dissected using blunt dissection and electrocautery until the triangle of Calot clearly identified. The cystic duct was clipped proximally and double clipped distally. The duct was then ligated proximally. The cystic artery was doubly clipped and ligated. The gallbladder was then removed from the liver bed using electrocautery. The gallbladder was removed from the abdomen using an Endo-Catch bag through the epigastric incision. The liver bed was inspected and no bleeding was seen. The abdomen was irrigated and suctioned. All ports removed. Skin was washed and dried. Incisions were closed with 4-0 Monocryl in a subcuticular interrupted fashion. Skin glue was applied. Patient tolerated the procedure well.
[2022-09-12] MEDS: fentaNYL 50 mcg/mL INJ 2mL IVP (12:36)
[2022-09-12] MEDS: HYDROcodone-acetaminophen 5-325 mg Tablet 1 TAB PO (15:12)
--- NOTE | 2022-09-12 15:16 | ANE.PACU2 ---
Inpatient post-anesthesia follow up: Airway intact: Yes Vital signs: Temperature 98.1 F Pulse Rate 58 Respiratory Rate 14 Blood Pressure 132/83 Pulse Oximetry 97 Oxygen Delivery Me thod Room Air Oxygen Flow Rate 9 Fraction of Inspir ed Oxygen Hydration adequate: Yes Nausea and vomiting: No Pain level: 3 Mental status: Baseline
== END 2022-09-12 15:25 | disposition home or self-care (01) ==
PROVIDERS: Anesthesiology; PCP Nurse Practitioner Family; Visit Provider Surgery
PROC: 0FT44ZZ Resection of Gallbladder, Percutaneous Endoscopic Approach (ICD-10-PCS; CPT 47562; principal; 2022-09-12 09:50)
DX: K81.1 Chronic cholecystitis (principal); J45.909 Unspecified asthma, uncomplicated; E66.01 Morbid (severe) obesity due to excess calories; Z68.41 Body mass index [BMI] 40.0-44.9, adult; F17.210 Nicotine dependence, cigarettes, uncomplicated
CPT/HCPCS: 47562; 81025; 84703; 88304; J0131; J0690; J1100; J1170; J1200; J1885; J2250; J2405; J2704; J2710; J3010; J3490; J7030

== ENCOUNTER 2022-09-13 17:15 | Emergency (ER) | payer BC, MEDICAID, SELFPAY ==
[2022-09-13 17:18] VITALS: BP 136/89; PULSE 67; TEMP 36.4; O2SAT 94; BMI 42.0
--- NOTE | 2022-09-13 18:42 | CTR_ITS ---
PROCEDURE INFORMATION: Exam: CT Abdomen And Pelvis With Contrast Exam date and time: 09/13/2022 7:45 PM Age: 32 years old Clinical indication: Abdominal pain; Generalized; Prior surgery; Surgery date: Post-operative (0-2 days); Surgery type: Esther yesterday; Additional info: Abd pain TECHNIQUE: Imaging protocol: Computed tomography of the abdomen and pelvis with contrast. Axial, coronal and sagittal reformatted images were created and reviewed. Radiation optimization: All CT scans at this facility use at least one of these dose optimization techniques: automated exposure control; mA and/or kV adjustment per patient size (includes targeted exams where dose is matched to clinical indication); or iterative reconstruction. Contrast material: OMNIPAQUE 350; Contrast volume: 95 ml; Contrast route: INTRAVENOUS (IV); Other protocol: This patient has received 0 known CTs and 0 known cardiac nuclear medicine studies in the 12 months prior to the current study. COMPARISON: CT abdomen pelvis w con* [id number] 11/02/2017 5:49 PM RADIATION DOSE METRICS: Total DLP (mGy-cm): 1280.43 FINDINGS: Lungs: Linear stranding and groundglass at the lung bases, likely due to atelectasis and/or scarring. Liver: Mild hepatomegaly. Diffuse hepatic steatosis. Gallbladder and bile ducts: Status post cholecystectomy. Small amount of edema in the gallbladder fossa, likely postoperative. No biliary ductal dilatation. Pancreas: Unremarkable. Spleen: Unremarkable. Adrenal glands: Normal. No mass. Kidneys and ureters: No mass. No radiodense calculi. No hydronephrosis. Stomach and bowel: No bowel wall thickening. No obstruction. No pneumatosis. Appendix: Normal. Intraperitoneal space: Trace nonspecific free pelvic fluid, likely physiologic. No organized fluid collection. No free air. Vasculature: Unremarkable. No aneurysm. Lymph nodes: No pathologically enlarged lymph nodes. Urinary bladder: Unremarkable as visualized. Reproductive: Unremarkable. Bones/joints: No acute osseous abnormality. Mild degenerative changes. Soft tissues: Postoperative changes in the anterior abdominal wall. CT/CT abdomen pelvis w con* [id number]: 1[address] No [address] evidence of acute intra-abdominal or pelvic pathology. 2. Additional findings, as above.
--- NOTE | 2022-09-13 18:55 | ED_ITS ---
HPI - Abdominal Pain General: Chief Complaint: Abdominal Pain Stated Complaint: postsurg/pain unbearable Time Seen by Provider: 09/13/22 18:36 Source: patient Mode of arrival: ambulatory Limitations: no limitations History of Present Illness: 32-year-old female who had laparoscopic cholecystectomy done yesterday states she been having severe pain since and is much worse today pain is currently 9 out of 10 states is diffuse in nature she denies any fever denies any nausea or vomiting she states that her oral pain meds of not been able to take her pain away. Associated Symptoms: Denies chills, dysuria and fever(s) Related Data: Date of Last Menstrual Period: 05/31/22 Review of Systems Const: Denies: fever(s), chills, body aches or change in appetite Eyes: Denies: blurry vision or eye discomfort ENMT: Denies: throat pain or dental pain Card: Denies: chest pain Resp: Denies: dyspnea GI: Reports: abdominal pain : Denies: dysuria Musc: Denies: neck pain or back pain Skin/Breast: Denies: rash Neuro: Denies: headache(s) Psych: Denies: depression [place]/Lymph: Denies: easy bruising All/Imm: Denies: urticaria PFSH ED PFSH: Medical History Asthma Biliary dyskinesia Depression Surgical History History of tonsillectomy and adenoidectomy Hx of colonoscopy AGE 18 No significant past surgical history Social History Smoking and tobacco status: current every day smoker Alcohol intake: current Alcohol intake frequency: holidays/special occasions only Female Reproductive History: Date of last menstrual period: 05/31/22 Physical Exam Const: COMMON NORMALS: no acute distress, patient oriented x3 and healthy appearing HENMT: COMMON NORMALS: normocephalic and atraumatic HEAD & SCALP: normocephalic and atraumatic Eye: COMMON NORMALS: Equal, round and reactive pupils present and EOMs intact bilaterally PUPIL: Yes Equal, round and reactive pupils present Neck/C-Spine: COMMON NORMALS: full ROM and supple Chest: COMMONS NORMALS: normal inspection of the chest and normal palpation of entire chest wall Resp: COMMON NORMALS: normal respiratory effort, No retractions, No use of accessory muscles and clear to auscultation bilaterally AUSCULTATION: clear to auscultation bilaterally Cardio: COMMON NORMALS: regular rate, regular rhythm and No murmurs present (Cardio) RATE: regular rate RHYTHM: regular rhythm GI: COMMON NORMALS: Normal to inspection, nondistended, normoactive bowel sounds present, Soft to palpation and no masses PALPATION: Yes Soft to palpation OTHER: Diffuse tenderness incisions clean dry and intact Extremity: COMMON NORMALS: normal to inspection and full ROM Neuro: COMMON NORMALS: patient oriented x3, moves all extremities and no focal motor deficits Psych: COMMON NORMALS: mental status grossly normal, Normal thought process present and cooperative THOUGHT PROCESS: Normal thought process present Skin: COMMON NORMALS: no rashes or lesions noted and no wounds GENERAL SKIN EXAM: no rashes or lesions noted Course Vital Signs: Vital signs: Vital Signs Temperature 97.5 F L 09/13/22 17:18 Pulse Rate 67 09/13/22 17:18 Respiratory Rate 18 09/13/22 19:15 Blood Pressure 136/89 09/13/22 17:18 Pulse Oximetry 94 09/13/22 17:18 Oxygen Delivery Me thod 09/13/22 17:18 MDM - Abdominal Pain Medical Decision Making Patient presents here with abdominal pain likely postop pain her CT scan here is normal blood work is normal she feels much improved after Dilaudid she is stable for discharge she is to follow-up with surgeon return if worsening. Lab Data 09/13/22 19:00 09/13/22 19:00 Labs/Radiology: Radiology Impressions Abdomen/Pelvis CT 09/13/22 18:[address]: [address] evidence of acute intra-abdominal or pelvic pathology. 2. Additional findings, as above. Laboratory Results WBC 12.2 10^3/uL (4.0-10.0) H 09/13/22 19:00 RBC 4.25 10^6/uL (4.1-5.3) 09/13/22 19:00 Hgb 13.1 g/dL (11.5-15.3) 09/13/22 19:00 Hct 40.5 % (37.0-47.0) 09/13/22 19:00 MCV 95.3 fl (81-99) 09/13/22 19:00 MCH 30.8 pg (28.0-34.0) 09/13/22 19:00 MCHC 32.3 g/dL (30.0-36.0) 09/13/22 19:00 RDW 12.3 % (12.1-15.1) 09/13/22 19:00 Plt Count 286 10^3/cmm (130-400) 09/13/22 19:00 MPV 10.7 fL (7.4-10.4) H 09/13/22 19:00 Neut % (Auto) 60.9 % 09/13/22 19:00 Lymph % (Auto) 30.0 % 09/13/22 19: [place] % (Auto) 6.6 % 09/13/22 19:00 Eos % (Auto) 1.6 % 09/13/22 19:00 Baso % (Auto) 0.5 % 09/13/22 19: Neut # (Auto) 7.39 10^3/uL (1.8-7.7) 09/13/22 19:00 Lymph # (Auto) 3.7 10^3/uL (0.8-4.8) 09/13/22 19:00 [place] # (Auto) 0.8 10^3/uL (0.2-0.9) 09/13/22 19:00 Eos # (Auto) 0.2 10^3/uL (0.0-0.8) 09/13/22 19:00 Baso # (Auto) 0.1 10^3/uL (0.0-0.1) 09/13/22 19:00 Nucleated RBC % (auto) 0 % 09/13/22 19: Nucleated RBCs # 0.0 /100WBC 09/13/22 19:00 Sodium 141 mmol/L (136-145) 09/13/22 19:00 Potassium 4.1 mmol/L (3.5-5.1) 09/13/22 19:00 Chloride 105 mmol/L (98-107) 09/13/22 19:00 Carbon Dioxide 26 mmol/L (22-29) 09/13/22 19:00 Anion Gap 14.1 (5-19) 09/13/22 19:00 BUN 11 mg/dL (6-20) 09/13/22 19:00 Creatinine 0.7 mg/dL (0.5-0.9) 09/13/22 19:00 GFR Calculation 97.0 mL/min (90-130) 09/13/22 19:00 Glucose 97 mg/dL (65-115) 09/13/22 19:00 Calculated Osmolality 291 mOsm/kg (285-295) 09/13/22 19:00 Calcium 8.6 mg/dL (8.5-10.5) 09/13/22 19:00 Total Bilirubin 0.2 mg/dL (0.15-1.2) 09/13/22 19:00 AST 54 U/L (0-32) H 09/13/22 19:00 ALT 82 U/L (0-33) H 09/13/22 19:00 Alkaline Phosphatase 80 U/L (35-105) 09/13/22 19:00 Total Protein 6.5 g/dL (6.6-8.7) L 09/13/22 19:00 Albumin 4.2 g/dL (3.5-5.2) 09/13/22 19:00 Globulin 2.3 g/dL (1.3-4.6) 09/13/22 19:00 Lipase 20 U/L (13-60) 09/13/22 19:00 Urine Color Yellow (Yellow) 09/13/22 20:15 Urine Appearance Clear (CLEAR) 09/13/22 20:15 Urine pH 6.5 (5-7) 09/13/22 20:15 Ur Specific [place] 1.005 (1.005-1.030) 09/13/22 20:15 Urine Protein Not Reportable 09/13/22 20:15 Urine Glucose (UA) Not Reportable 09/13/22 20:15 Urine Ketones Not Reportable 09/13/22 20:15 Urine Blood 3+ (Negative) H 09/13/22 20:15 Urine Nitrate Not Reportable 09/13/22 20:15 Urine Bilirubin Not Reportable 09/13/22 20:15 Urine Urobilinogen Not Reportable 09/13/22 20:15 Ur Leukocyte Esterase Not Reportable 09/13/22 20:15 Urine RBC 0-4 /hpf (0-2) H 09/13/22 20:15 Urine WBC Not Reportable 09/13/22 20:15 Ur Squamous Epith Cells 25-40 /hpf (0-5) H 09/13/22 20:15 Amorphous Sediment Not Reportable 09/13/22 20:15 Urine Bacteria Not Reportable 09/13/22 20:15 Discharge Plan Discharge Patient Disposition: Home Clinical Impression: Abdominal pain Condition: Stable Prescriptions: No Action albuterol sulfate 0.63 mg/3 mL solution for nebulization 0.63 mg INHALATION Q8H PRN (Reason: shortness of breath or wheezing) Qty: 90 1RF multivitamin Tablet 1 tab PO DAILY fluticasone propionate [Flonase Allergy Relief] 50 mcg/actuation spray,suspension 2 spray intranasal DAILY PRN (Reason: Allergy Symptoms) Rx Instructions: administer into each nostril ascorbic acid (vitamin C) [Vitamin C] 500 mg Tablet 500 mg PO BID hydrocodone-acetaminophen 5-325 mg tablet 1 tab PO Q6H PRN (Reason: pain) Qty: 20 0RF DOK 100 mg capsule 100 mg PO BID Qty: 20 0RF albuterol sulfate 90 mcg/actuation HFA aerosol inhaler 2 inh INHALATION Q4H PRN (Reason: shortness of breath or wheezing) Qty: 8.5 0RF hydrocodone-acetaminophen 5-325 mg tablet 1 tab PO Q6H PRN (Reason: pain) Qty: 20 0RF Hold Instructions: Resume on 09/17/22. promethazine 25 mg tablet 25 mg PO Q6H PRN (Reason: nausea and vomiting) Qty: 20 0RF Discharge Orders: Discharge ED (Routine); Ordered 09/13/22 Ordered By: Jessenia Hylton Referrals: Markus Turk DO [Physician] - 1-3 days Shima Tavarez FNP [Primary Care Provider] - Discharge Diet: Advance as tolerated Discharge Activity: Resume usual activity Patient Instructions: Abdominal Pain (ED) Coding Level of Care Code ED Ventilating Equipment Installer for Ko Cabrera
[2022-09-13 19:12] LABS: Basophils # 0.1 10^3/uL (0.0-0.1); Basophils % 0.5 %; Eosinophils # 0.2 10^3/uL (0.0-0.8); Eosinophils % 1.6 %; Hematocrit 40.5 % (37.0-47.0); Hemoglobin 13.1 g/dL (11.5-15.3); Lymphocytes # 3.7 10^3/uL (0.8-4.8); Mean Corpuscular HGB Conc 32.3 g/dL (30.0-36.0); Mean Corpuscular Hemoglobin 30.8 pg (28.0-34.0); Mean Corpuscular Volume 95.3 fl (81-99); Mean Platelet Volume 10.7 fL (7.4-10.4); Monocytes # 0.8 10^3/uL (0.2-0.9); Monocytes % 6.6 %; Neutrophils # 7.39 10^3/uL (1.8-7.7); Neutrophils % 60.9 %; Nucleated Red Blood Cells % 0 %; Platelet Count 286 10^3/cmm (130-400); Red Blood Count 4.25 10^6/uL (4.1-5.3); Red Cell Distribution Width 12.3 % (12.1-15.1); White Blood Count 12.2 10^3/uL (4.0-10.0)
[2022-09-13 19:15] VITALS: RESP 18
[2022-09-13] MEDS: HYDROmorphone 1 mg/mL INJ 1 mL IVP (19:15)
[2022-09-13] MEDS: ondansetron 2 mg/ML SDV 2 mL 4 MG IVP (19:16)
[2022-09-13] MEDS: sodium chloride 0.9% 1,000 ML 999 ML IV (19:16)
[2022-09-13 19:32] LABS: Alanine Aminotransferase 82 U/L (0-33); Albumin Level 4.2 g/dL (3.5-5.2); Alkaline Phosphatase 80 U/L (35-105); Anion Gap 14.1 (5-19); Aspartate Amino Transferase 54 U/L (0-32); Blood Urea Nitrogen 11 mg/dL (6-20); Calcium 8.6 mg/dL (8.5-10.5); Carbon Dioxide 26 mmol/L (22-29); Chloride 105 mmol/L (98-107); Globulin 2.3 g/dL (1.3-4.6); Glucose 97 mg/dL (65-115); Lipase 20 U/L (13-60); Osmolality Calculated 291 mOsm/kg (285-295); Potassium 4.1 mmol/L (3.5-5.1); Sodium 141 mmol/L (136-145); Total Bilirubin 0.2 mg/dL (0.15-1.2); Total Protein 6.5 g/dL (6.6-8.7)
[2022-09-13 20:56] VITALS: RESP 18; O2SAT 100
[2022-09-13 21:12] LABS: Blood Urine 3+ (Negative); Specific Gravity, Urine 1.005 (1.005-1.030); Urine Appearance Clear (CLEAR); Urine Color Yellow (Yellow); pH Urine 6.5 (5-7)
[2022-09-13 21:17] LABS: Add Urine Microscopic? YES; RBC Urine 0-4 /hpf (0-2)
[2022-09-13 21:18] LABS: Squamous Epithelial Cell Urine 25-40 /hpf (0-5)
[2022-09-13 21:34] VITALS: BP 119/68; PULSE 60; RESP 18; O2SAT 100
== END 2022-09-13 21:36 | disposition home or self-care (01) ==
PROVIDERS: Emergency Provider Emergency Medicine; PCP Nurse Practitioner Family
DX: G89.18 Other acute postprocedural pain (principal); R10.9 Unspecified abdominal pain; F17.210 Nicotine dependence, cigarettes, uncomplicated; Z90.49 Acquired absence of other specified parts of digestive tract
CPT/HCPCS: 74177; 80053; 81001; 83690; 85025; 96361; 96374; 96375; 99285; J1170; J2405; J7030; Q9967

== ENCOUNTER 2022-10-02 06:57 | Emergency (ER) | payer BC, MEDICAID, SELFPAY ==
[2022-10-02 07:05] VITALS: BP 133/91; PULSE 81; RESP 14; TEMP 36.6; O2SAT 98; BMI 42.0
--- NOTE | 2022-10-02 07:12 | ED_ITS ---
HPI - Abdominal Pain General: Chief Complaint: Abdominal Pain Stated Complaint: 3wks postop/abd pain Time Seen by Provider: 10/02/22 07:12 History of Present Illness: Ms. Medrano is a 32-year-old lady with history of laparoscopic cholecystectomy on 09/12/2022 presenting to the emergency department for abdominal pain. She reports returning to work 3 days ago and has had to be quite active. This is required lifting yesterday and she has now developed generalized abdominal soreness. She endorses more feeling like the abdominal wall muscles are sore. Denies sudden worsening of pain or other signs of systemic illness. Intensity symptoms is moderate and worse with movement. No other specific changes in health, exacerbating, or alleviating factors identified. Onset (ago): day(s) Pain Consistency: constant Location: Diffuse Severity: moderate Quality: aching Radiation: none Migration to: no migration Exacerbating factors: movement Relieving factors: nothing Context: recent surgery/procedure Associated Symptoms: Reports no associated symptoms Review of Systems General: Reports: 10 or more systems reviewed and unremarkable except in HPI and below PFSH ED PFSH: Medical History Asthma Biliary dyskinesia Depression Surgical History History of laparoscopic cholecystectomy History of tonsillectomy and adenoidectomy Hx of colonoscopy AGE 18 No significant past surgical history Social History Smoking and tobacco status: current every day smoker Alcohol intake: current Alcohol intake frequency: holidays/special occasions only Physical Exam Const: COMMON NORMALS: alert GENERAL APPEARANCE: cooperative and well developed HENMT: COMMON NORMALS: normocephalic and atraumatic HEAD & SCALP: normocephalic and atraumatic Eye: COMMON NORMALS: conjunctivae normal CONJUNCTIVA: Yes conjunctivae normal SCLERA: sclerae normal Neck/C-Spine: COMMON NORMALS: supple GENERAL: Yes trachea midline Resp: COMMON NORMALS: clear to auscultation bilaterally EFFORT & INSPECTION: Yes able to speak in complete sentences AUSCULTATION: clear to auscultation bilaterally Cardio: COMMON NORMALS: regular rate and regular rhythm RATE: regular rate RHYTHM: regular rhythm GI: COMMON NORMALS: Soft to palpation PALPATION: Yes Soft to palpation, Yes Tenderness to palpation present (GI), No Guarding due to palpation present (GI) and No Rigid due to palpation Extremity: GENERAL: Yes normal exam except as noted and No edema Neuro: COMMON NORMALS: moves all extremities SENSORIUM/ORIENTATION: Yes alert and No Orientation impaired Psych: COMMON NORMALS: mental status grossly normal and Normal thought process present THOUGHT PROCESS: Normal thought process present Skin: NARRATIVE SKIN EXAM: Supraumbilical ecchymosis, patient reports improving, overall mild Course Vital Signs: Vital signs: Vital Signs Temperature 97.9 F 10/02/22 07:05 Pulse Rate 75 10/02/22 07:39 Respiratory Rate 18 10/02/22 07:35 Blood Pressure 132/92 10/02/22 07:39 Pulse Oximetry 100 10/02/22 07:39 Oxygen Delivery Me thod 10/02/22 07:05 MDM - Abdominal Pain Medical Decision Making 32-year-old lady with cholecystectomy on 09/12 presenting due to abdominal pain in the context of return to work. Notes onset and patient describes this more as abdominal with aching. She is not on peritonitic and nontoxic in appearance. Ultimately seems like overexertion/pain related to return to work with in the context of normal healing process. Patient is comfortable without laboratory studies or imaging which I believe is appropriate to forego. I will prescribe additional pain medication, I will write a work note for return to work in 2 days with light duty and plan to return normal 10/12 with requirement to see Dr. Turk if symptoms persist. I discussed prescriptions and/or symptomatic cares (if applicable) including appropriate and responsible use, followup plan, and return precautions. The patient verbalized understanding and felt safe for discharge. Medical Records I reviewed the patient's medical records. Lab Data I reviewed the patient's lab results. Discharge Plan Discharge Patient Disposition: Home Clinical Impression: Abdominal pain Condition: Stable Prescriptions: New oxycodone 5 mg tablet 5 mg PO Q4H PRN (Reason: pain) Qty: 10 0RF No Action albuterol sulfate 0.63 mg/3 mL solution for nebulization 0.63 mg INHALATION Q8H PRN (Reason: shortness of breath or wheezing) Qty: 90 1RF multivitamin Tablet 1 tab PO DAILY fluticasone propionate [Flonase Allergy Relief] 50 mcg/actuation spray,suspension 2 spray intranasal DAILY PRN (Reason: Allergy Symptoms) Rx Instructions: administer into each nostril ascorbic acid (vitamin C) [Vitamin C] 500 mg Tablet 500 mg PO BID hydrocodone-acetaminophen 5-325 mg tablet 1 tab PO Q6H PRN (Reason: pain) Qty: 20 0RF DOK 100 mg capsule 100 mg PO BID Qty: 20 0RF albuterol sulfate 90 mcg/actuation HFA aerosol inhaler 2 inh INHALATION Q4H PRN (Reason: shortness of breath or wheezing) Qty: 8.5 0RF hydrocodone-acetaminophen 5-325 mg tablet 1 tab PO Q6H PRN (Reason: pain) Qty: 20 0RF Hold Instructions: Resume on 09/17/22. promethazine 25 mg tablet 25 mg PO Q6H PRN (Reason: nausea and vomiting) Qty: 20 0RF Discharge Orders: Discharge ED (Routine); Ordered 10/02/22 Ordered By: Jose Armando Pugh Referrals: Shima Tavarez, PODIATRIC MEDICINE DOCTOR [Primary Care Provider] - Discharge Diet: Usual diet Discharge Activity: Increase activity as tolerated Patient Instructions: Abdominal Pain (ED), Opioid Safety Activity Restrictions/Additional Instructions: Thank you for visiting the emergency department. You were seen antibiotic for abdominal soreness in the context of recent surgery. The most likely cause of this is secondary to overexertion during the healing process. I will write you a work note. If symptoms persist beyond work note period please follow-up with Dr. Turk. You may use [id number] medications such as acetaminophen and ibuprofen for pain however please do not exceed the daily recommended dosage as listed on the packaging and please keep in mind that many namebrand medications contain the same active ingredients. Please avoid these medications if previously instructed to do so by another physician due to other underlying medical condition. Use oxycodone cautiously as it is an opioid. Return to the emergency department for uncontrolled symptoms or anything else that you are concerned about and feel needs emergency department evaluation. Stand Alone Forms: Work/School Release Coding Level of Care Code ED Director Of Vocational Training for Ko Cabrera
[2022-10-02 07:35] VITALS: RESP 18
[2022-10-02] MEDS: oxyCODONE 5 mg IR Tab/Cap PO (07:35)
[2022-10-02 07:39] VITALS: BP 132/92; PULSE 75; O2SAT 100
== END 2022-10-02 07:41 | disposition home or self-care (01) ==
PROVIDERS: Emergency Provider Emergency Medicine; PCP Nurse Practitioner Family
DX: R10.84 Generalized abdominal pain (principal); Z90.49 Acquired absence of other specified parts of digestive tract
CPT/HCPCS: 99283

== ENCOUNTER 2022-11-02 17:37 | Inpatient (IN) | payer BC, SELFPAY ==
[2022-11-02 17:43] VITALS: BP 173/96; PULSE 85; RESP 20; TEMP 36.8; O2SAT 97; BMI 41.1
--- NOTE | 2022-11-02 17:52 | ED.C_ITS ---
HPI - Psych General: Chief Complaint: Psychiatric Symptoms Stated Complaint: MHE Time Seen by Provider: 11/02/22 17:51 Source: patient Mode of arrival: ambulatory Limitations: no limitations History of Present Illness: Patient is a very nice 32-year-old female who presents to ED today requesting hospitalization to [facility] for treatment of her anxiety/depression and alcohol abuse. Patient states that she has struggled with alcohol abuse for many years. She has had many stents of sobriety and subsequent relapses. Patient states she has recently relapsed and is now having thoughts of wanting to harm herself because she feels disappointed in herself. She states she is not suicidal and states I would never kill myself . She states at one point she was on medications for her anxiety and depression that were working very well she was able to maintain sobriety while on these medications however she lost her insurance and could no longer afford them. MD complaint: feels depressed and other (anxiety, etoh abuse) Onset (ago): week(s) Duration: getting worse History of same: Yes Relieving factors: medication Exacerbating factors: alcohol Context: recent alcohol abuse Associated psychiatric symptoms: depression Associated symptoms: Reports depression; Deny auditory hallucinations, visual hallucinations, homicidal ideation or suicidal ideation Treatments prior to arrival: none If self harm: admits thoughts of self harm (denies suicidality) Review of Systems Const: Denies: fever(s) or chills Card: Denies: chest pain, palpitations, lightheadedness or syncope Resp: Denies: dyspnea GI: Denies: abdominal pain, nausea, vomiting or diarrhea Skin/Breast: Denies: rash Neuro: Denies: headache(s) Psych: Reports: anxiety, depression and hopelessness; Denies: paranoia, visual hallucinations, auditory hallucinations, suicidal ideation or homicidal ideation [facility] ED PFSH: Medical History Asthma Biliary dyskinesia Depression Surgical History History of laparoscopic cholecystectomy History of tonsillectomy and adenoidectomy Hx of colonoscopy AGE 18 No significant past surgical history Social History Smoking and tobacco status: current every day smoker Alcohol intake: current Alcohol intake frequency: holidays/special occasions only Physical Exam Const: COMMON NORMALS: no acute distress, patient oriented x3, no limitations, alert and well nourished GENERAL APPEARANCE: cooperative and well kempt NUTRITIONAL APPEARANCE: obese Resp: COMMON NORMALS: normal respiratory effort and clear to auscultation bilaterally AUSCULTATION: clear to auscultation bilaterally Cardio: COMMON NORMALS: regular rate and regular rhythm RATE: regular rate RHYTHM: regular rhythm Neuro: MARK COMA SCALE: document GCS findings Mark coma scale eye opening: Spontaneous [place] coma scale verbal response: Orientated [place] coma scale motor response: Obey commands Mark coma scale total score: 15 COMMON NORMALS: patient oriented x3, moves all extremities, no focal motor deficits, no sensory deficits noted and gait normal SENSORIUM/ORIENTATION: Yes alert Psych: COMMON NORMALS: mental status grossly normal, Normal thought process present, cooperative, speech normal, activity/motor behavior normal, denies hallucinations, denies homicidal ideation and denies suicidal ideation APPEARANCE: Yes grossly normal and Yes well kempt ATTITUDE: Yes calm ACTIVITY/MOTOR BEHAVIOR: Yes appropriate eye contact and No psychomotor agitation SPEECH: Yes normal speech MOOD & AFFECT: Yes sad and Yes tearful THOUGHT PROCESS: Normal thought process present THOUGHT CONTENT: Yes Normal thought content present MEMORY/COGNITION: Yes memory grossly intact and Yes cognition grossly intact INSIGHT: Good insight present (Psych) JUDGEMENT: Good judgement present (Psych) Course Consultations: Consultation #1: Dr. Horowitz-accepts to [facility] Vital Signs: Vital signs: Vital Signs Temperature 98.2 F 11/02/22 17:43 Pulse Rate 85 11/02/22 17:43 Respiratory Rate 20 H 11/02/22 17:43 Blood Pressure 173/96 11/02/22 17:43 Pulse Oximetry 97 11/02/22 17:43 Oxygen Delivery Me thod 11/02/22 17:43 MDM - Psych Medical Decision Making Patient will be an admit to [facility] to Dr. Horowitz for treatment of anxiety, depression, alcohol abuse. She is voluntary at this time. Lab Data 11/02/22 17:59 11/02/22 17:59 Laboratory Results WBC 8.2 10^3/uL (4.0-10.0) 11/02/22 17:59 RBC 4.57 10^6/uL (4.1-5.3) 11/02/22 17:59 Hgb 14.2 g/dL (11.5-15.3) 11/02/22 17:59 Hct 42.4 % (37.0-47.0) 11/02/22 17:59 MCV 92.8 fl (81-99) 11/02/22 17:59 MCH 31.1 pg (28.0-34.0) 11/02/22 17:59 MCHC 33.5 g/dL (30.0-36.0) 11/02/22 17:59 RDW 12.0 % (12.1-15.1) L 11/02/22 17:59 Plt Count 300 10^3/cmm (130-400) 11/02/22 17:59 MPV 10.1 fL (7.4-10.4) 11/02/22 17:59 Neut % (Auto) 48.4 % 11/02/22 17:59 Lymph % (Auto) 37.9 % 11/02/22 17:59 [place] % (Auto) 5.5 % 11/02/22 17:59 Eos % (Auto) 6.8 % 11/02/22 17:59 Baso % (Auto) 1.0 % 11/02/22 17:59 Neut # (Auto) 3.97 10^3/uL (1.8-7.7) 11/02/22 17:59 Lymph # (Auto) 3.1 10^3/uL (0.8-4.8) 11/02/22 17:59 [place] # (Auto) 0.5 10^3/uL (0.2-0.9) 11/02/22 17:59 Eos # (Auto) 0.6 10^3/uL (0.0-0.8) 11/02/22 17:59 Baso # (Auto) 0.1 10^3/uL (0.0-0.1) 11/02/22 17:59 Nucleated RBC % (auto) 0 % 11/02/22 17: Nucleated RBCs # 0.0 /100WBC 11/02/22 17:59 Sodium 143 mmol/L (136-145) 11/02/22 17:59 Potassium 3.8 mmol/L (3.5-5.1) 11/02/22 17: Chloride 108 mmol/L (98-107) H 11/02/22 17:59 Carbon Dioxide 22 mmol/L (22-29) 11/02/22 17:59 Anion Gap 16.8 (5-19) 11/02/22 17:59 BUN 6 mg/dL (6-20) 11/02/22 17:59 Creatinine 0.5 mg/dL (0.5-0.9) 11/02/22 17:59 GFR Calculation 143.0 mL/min (90-130) H 11/02/22 17:59 Glucose 99 mg/dL (65-115) 11/02/22 17:59 Calculated Osmolality 294 mOsm/kg (285-295) 11/02/22 17:59 Calcium 8.3 mg/dL (8.5-10.5) L 11/02/22 17:59 Total Bilirubin 0.2 mg/dL (0.15-1.2) 11/02/22 17:59 AST 54 U/L (0-32) H 11/02/22 17:59 ALT 65 U/L (0-33) H 11/02/22 17:59 Alkaline Phosphatase 101 U/L (35-105) 11/02/22 17:59 Total Protein 7.1 g/dL (6.6-8.7) 11/02/22 17:59 Albumin 4.4 g/dL (3.5-5.2) 11/02/22 17:59 Globulin 2.7 g/dL (1.3-4.6) 11/02/22 17:59 HCG, Qual Negative (Negative) 11/02/22 17:59 Salicylates < 0.3 mg/dL (3-10) L 11/02/22 17:59 Urine Opiates Screen Negative ng/mL (Negative) 11/02/22 17:50 Acetaminophen < 5.0 ug/mL (10-30) L 11/02/22 17:59 Ur Barbiturates Screen Negative ng/mL (Negative) 11/02/22 17:50 Ur Phencyclidine Scrn Negative ng/mL (Negative) 11/02/22 17:50 Ur Amphetamines Screen Negative ng/mL (Negative) 11/02/22 17:50 U Benzodiazepines Scrn Negative ng/mL (Negative) 11/02/22 17:50 Urine Cocaine Screen Negative ng/mL (Negative) 11/02/22 17:50 U Marijuana (THC) Screen Negative ng/mL (Negative) 11/02/22 17:50 Ethyl Alcohol 212 mg/dL (0-10) H 11/02/22 17:59 Discharge Plan Discharge Patient Disposition: Admitted As Inpatient Clinical Impression: ETOH abuse, Depression, Anxiety Condition: Stable Prescriptions: No Action albuterol sulfate 0.63 mg/3 mL solution for nebulization 0.63 mg INHALATION Q8H PRN (Reason: shortness of breath or wheezing) Qty: 90 1RF multivitamin Tablet 1 tab PO DAILY fluticasone propionate [Flonase Allergy Relief] 50 mcg/actuation spray,suspen raghavendra 2 spray intranasal DAILY PRN (Reason: Allergy Symptoms) Rx Instructions: administer into each nostril ascorbic acid (vitamin C) [Vitamin C] 500 mg Tablet 500 mg PO BID oxycodone 5 mg tablet 5 mg PO Q4H PRN (Reason: pain) Qty: 10 0RF hydrocodone-acetaminophen 5-325 mg tablet 1 tab PO Q6H PRN (Reason: pain) Qty: 20 0RF DOK 100 mg capsule 100 mg PO BID Qty: 20 0RF albuterol sulfate 90 mcg/actuation HFA aerosol inhaler 2 inh INHALATION Q4H PRN (Reason: shortness of breath or wheezing) Qty: 8.5 0RF hydrocodone-acetaminophen 5-325 mg tablet 1 tab PO Q6H PRN (Reason: pain) Qty: 20 0RF Hold Instructions: Resume on 09/17/22. promethazine 25 mg tablet 25 mg PO Q6H PRN (Reason: nausea and vomiting) Qty: 20 0RF Referrals: Shima Tavarez, CLAIM INSPECTOR [Primary Care Provider] - Coding Level of Care Code ED Service Attendant Cafeteria for Ko Cabrera
[2022-11-02 18:12] LABS: Basophils # 0.1 10^3/uL (0.0-0.1); Eosinophils # 0.6 10^3/uL (0.0-0.8); Eosinophils % 6.8 %; Hematocrit 42.4 % (37.0-47.0); Hemoglobin 14.2 g/dL (11.5-15.3); Lymphocytes # 3.1 10^3/uL (0.8-4.8); Lymphocytes % 37.9 %; Mean Corpuscular HGB Conc 33.5 g/dL (30.0-36.0); Mean Corpuscular Hemoglobin 31.1 pg (28.0-34.0); Mean Corpuscular Volume 92.8 fl (81-99); Mean Platelet Volume 10.1 fL (7.4-10.4); Monocytes # 0.5 10^3/uL (0.2-0.9); Monocytes % 5.5 %; Neutrophils # 3.97 10^3/uL (1.8-7.7); Neutrophils % 48.4 %; Nucleated Red Blood Cells % 0 %; Platelet Count 300 10^3/cmm (130-400); Red Blood Count 4.57 10^6/uL (4.1-5.3); White Blood Count 8.2 10^3/uL (4.0-10.0)
[2022-11-02 18:22] LABS: HCG, Serum Qual Negative (Negative)
[2022-11-02 18:27] LABS: Alanine Aminotransferase 65 U/L (0-33); Albumin Level 4.4 g/dL (3.5-5.2); Alcohol Level 212 mg/dL (0-10); Alkaline Phosphatase 101 U/L (35-105); Anion Gap 16.8 (5-19); Aspartate Amino Transferase 54 U/L (0-32); Blood Urea Nitrogen 6 mg/dL (6-20); Calcium 8.3 mg/dL (8.5-10.5); Carbon Dioxide 22 mmol/L (22-29); Chloride 108 mmol/L (98-107); Globulin 2.7 g/dL (1.3-4.6); Glucose 99 mg/dL (65-115); Osmolality Calculated 294 mOsm/kg (285-295); Potassium 3.8 mmol/L (3.5-5.1); Sodium 143 mmol/L (136-145); Total Bilirubin 0.2 mg/dL (0.15-1.2); Total Protein 7.1 g/dL (6.6-8.7)
[2022-11-02 18:30] LABS: Acetaminophen < 5.0 ug/mL (10-30); Salicylate < 0.3 mg/dL (3-10)
[2022-11-02 19:01] LABS: Amphetamines Screen Urine Negative (Negative); Barbiturates Screen Urine Negative (Negative); Benzodiazepines Screen Urine Negative (Negative); Cocaine Screen Urine Negative (Negative); Opiate Screen Urine Negative (Negative); PCP Screen Urine Negative (Negative); THC Screen Urine Negative (Negative)
[2022-11-02 20:15] VITALS: BP 142/89; PULSE 79; O2SAT 97
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
[2022-11-02 20:31] VITALS: BP 148/110; PULSE 89; RESP 16; TEMP 36.8; O2SAT 96
[2022-11-02] MEDS: LORazepam 2 mg Tablet PO (22:27)
[2022-11-03 06:00] VITALS: BP 124/74; PULSE 70; RESP 18; TEMP 37; O2SAT 97
[2022-11-03] MEDS: nicotine 21 mg Patch 1 PATCH TRANSDERMA (08:04)
[2022-11-03] MEDS: LORazepam 2 mg Tablet PO ×3 (08:43→21:07)
--- NOTE | 2022-11-03 08:44 | PC.NURSE ---
CIWA score of 22. Patient vomiting this morning and sweating profusely. Patient presents as very anxious, crying and asking if there is anything at all for her anxiety. Patient states she has a headache and rates it an 8.
[2022-11-03 10:47] VITALS: O2SAT 96
[2022-11-03] MEDS: albuterol 2.5 mg/3 mL Neb INHALATION (12:38)
[2022-11-03 12:40] VITALS: PULSE 80; RESP 18; O2SAT 96
[2022-11-03 12:48] VITALS: PULSE 82
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
[2022-11-03] MEDS: acetaminophen 325 mg Tablet 650 MG PO ×2 (13:54→21:06)
[2022-11-03 14:00] VITALS: BP 145/93; PULSE 76; RESP 20; TEMP 36.6; O2SAT 100
[2022-11-03] MEDS: venlafaxine ER (24HR) 37.5 mg Capsule PO (14:18)
--- NOTE | 2022-11-03 14:24 | PC.NURSE ---
Patient approached nurse with severe headache and trembling. This nurse performed a CIWA assessment, giving the patient a score of 15. This nurse gave patient 2mg Ativan and will continue to monitor patient.
[2022-11-03] MEDS: ondansetron 4 MG Tablet PO (21:07)
[2022-11-03 22:00] VITALS: RESP 18
[2022-11-04 06:00] VITALS: RESP 15
[2022-11-04] MEDS: nicotine 21 mg Patch 1 PATCH TRANSDERMA (07:46)
[2022-11-04] MEDS: venlafaxine ER (24HR) 37.5 mg Capsule PO (08:15)
[2022-11-04] MEDS: ondansetron 4 MG Tablet PO (08:24)
[2022-11-04] MEDS: albuterol 2.5 mg/3 mL Neb INHALATION (08:46)
[2022-11-04 08:48] VITALS: PULSE 59; RESP 18; O2SAT 98
[2022-11-04 08:57] VITALS: PULSE 65
[2022-11-04] MEDS: OLANZapine 5 mg ODT PO (12:06)
--- NOTE | 2022-11-04 12:21 | P.NPUPN_ITS ---
Subjective NPU Subjective: Patient presented today reporting that she is feeling a little better. She was able to demonstrate a significant reduction in her tremors and shakes. She reports that she is feeling a lot better from the standpoint of withdrawal. She reports that she tolerated the initiation of the Effexor XR without incident. She is working with the social work team and has completed her turning leaf application. We discussed the risk benefits and alternatives of monitoring her likely for just another 24 hours with the likelihood of discharge in the morning and she understood and agreed to proceed as is documented in this note. Mental Status Exam MSE Comments: This is an obese versus morbidly obese, white female, with hospital scrubs with adequate grooming and eye contact. No abnormal movements except for mild psychomotor retardation. Cooperative with exam in mild distress. Speech was decreased rate and volume. Mood described as a little better; affect congruent. Thought process, organized. Thought content: patient denied any suicidal or homicidal ideation, there were no delusions reported or noted, patient denied any auditory or visual hallucinations. Attention, concentration, and memory appear intact but were not formally tested. He is alert and oriented times three. Insight and judgment appear fair, impulse control is impaired. Vitals/I&O/Wt Last Vital Signs Temp 98 F 11/03/22 14:00 Pulse 65 11/04/22 08:57 Resp 18 11/04/22 08:48 BP 145/93 11/03/22 14:00 Pulse Ox 98 11/04/22 08:48 O2 Del Method 11/04/22 08:48 Weight last 48 hrs Weight 108.862 kg Data NPU 11/02/22 17:59 11/02/22 17:59 A&P Assessment and plan (1) Anxiety: (2) History of laparoscopic cholecystectomy: (3) PTSD (post-traumatic stress disorder): (4) ETOH abuse: (5) Depression: Plan This is a 32-year-old, white female, with a long history of trauma and post- traumatic stress disorder symptoms, depression, anxiety with alcohol addiction off of medication open to restarting medication. RECOMMENDATION AND PLAN: 1. Continue current medication. Restarted Effexor XR 37.5 mg p.o. every morning and titrate to effect with a target dose between 150 and 225 mg. We will look to increase to 75 mg at discharge. 2. Encourage individual, group, and milieu therapy. 3. Continue q-15 minute checks for safety. 4. ? Encourage sober living treatment after discharge at the highest level of care to which he is willing to commit. 5. Continue with [facility] protocol. Involuntary Hold Information 96 Hour Hold: 96 Hour Involuntary Admission: No Attestations NPU Medical Necessity Statement*: Inpatient hospitalization is medically necessary and the clinically appropriate intervention, at this time. We will monitor medications and make changes as indicated. Likely length of stay is 1-3 days. Coding Level of Care Code Acute Code for [facility] Fwd Diagnoses Anxiety F41.9 History of laparoscopic cholecystectomy Z90.49 PTSD (post-traumatic stress disorder) F43.10 ETOH abuse F10.10 Depression F32.9
[2022-11-04 13:17] VITALS: BP 138/90; PULSE 72; RESP 16; TEMP 36.7; O2SAT 97
[2022-11-04 20:07] VITALS: BP 121/81; PULSE 75; RESP 18; TEMP 36.9; O2SAT 98
[2022-11-04] MEDS: trazodone 50 mg Tablet PO (21:04)
[2022-11-04] MEDS: hyDROXYzine 25 mg Capsule 50 MG PO (21:04)
[2022-11-05 06:00] VITALS: BP 133/81; PULSE 51; RESP 16; TEMP 36.7; O2SAT 95
[2022-11-05 08:08] VITALS: PULSE 66; RESP 18; O2SAT 92
[2022-11-05] MEDS: venlafaxine ER (24HR) 37.5 mg Capsule PO (08:47)
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
[2022-11-05 10:37] VITALS: PULSE 66; RESP 18; O2SAT 92
== END 2022-11-05 11:05 | disposition home or self-care (01) | DRG 897 ==
LOC: ER 19:49 → NP 20:07
PROVIDERS: Admitting Provider Psychiatry & Neurology Psychiatry; Emergency Provider Physician Assistant; PCP Nurse Practitioner Family; Visit Provider Psychiatry & Neurology Psychiatry
DX: F10.129 Alcohol abuse with intoxication, unspecified (principal); Y90.7 Blood alcohol level of 200-239 mg/100 ml; F10.139 Alcohol abuse with withdrawal, unspecified; F41.9 Anxiety disorder, unspecified; F32.A Depression, unspecified; Z91.120 Patient's intentional underdosing of medication regimen due to financial hardship; F43.10 Post-traumatic stress disorder, unspecified; F17.200 Nicotine dependence, unspecified, uncomplicated; Z81.1 Family history of alcohol abuse and dependence
CPT/HCPCS: 36415; 80053; 80306; 80307; 84703; 85025; 94640; 94664; 97150; 97165; 99285; J7613; Q0162

== ENCOUNTER 2022-11-15 08:19 | Emergency (ER) | payer BC, MEDICAID, SELFPAY ==
--- NOTE | 2022-11-15 08:29 | XR_ITS ---
WS: [id number] Portable AP upright chest, 11/15/2022 Clinical Data: dyspnea/cough Comparison: Portable chest, 08/26/2022 Findings: No nodules, masses or effusions are seen. The heart is normal. The pulmonary vascularity is not increased. No pneumonia or pneumothorax is seen. There may be artifact from patient's clothing o verlying the right lateral seventh rib. XR/XR chest 1V portable [id number] Impression: Negative chest.
[2022-11-15 08:30] VITALS: BP 151/83; PULSE 66; RESP 14; TEMP 36.6; O2SAT 97; BMI 41.1
--- NOTE | 2022-11-15 08:33 | W.ED.ASTHMA ---
HPI - Asthma General: Chief Complaint: Shortness of Breath/Dyspnea Stated Complaint: asthma, sob Time Seen by Provider: 11/15/22 08:21 Source: patient Mode of arrival: ambulatory History of Present Illness: 32-year-old female presents emergency room planing wheezing difficulty breathing. She has not had any fever sweats or chills cough is nonproductive she has a history of asthma she last used her nebulizer inhaler about 4 hours prior to arrival. No nausea vomiting diarrhea myalgias headache or fever. MD complaint: asthma attack , shortness of breath and wheezing Onset (ago): minute(s) Severity: moderate Context: recent URI and allergen exposure (possible) Associated symptoms: Deny chest pain, fever(s), hemoptysis, leg edema, non-productive cough, productive cough or syncope Treatments Prior to Arrival: inhaled bronchodilator Review of Systems Const: Denies: fever(s) or chills ENMT: Denies: throat pain, ear or mastoid pain, nasal discharge or nasal congestion Card: Denies: chest pain or syncope Resp: Denies: dyspnea, productive cough, non-productive cough or hemoptysis GI: Denies: abdominal pain, nausea, vomiting, hematemesis, coffee ground emesis, diarrhea, constipation, bloating, hematochezia or melena : Denies: flank pain, difficulty voiding, dysuria, urinary frequency or urinary urgency Skin/Breast: Denies: rash or pruritus PFSH ED PFSH: Medical History Asthma Biliary dyskinesia Depression Psychiatric care Surgical History History of laparoscopic cholecystectomy History of tonsillectomy and adenoidectomy Hx of colonoscopy AGE 18 No significant past surgical history Social History Smoking and tobacco status: current every day smoker Alcohol intake: current Alcohol intake frequency: holidays/special occasions only Physical Exam Const: COMMON NORMALS: no acute distress GENERAL APPEARANCE: cooperative and comfortable ORIENTATION/CONSCIOUSNESS: Yes awake, Yes oriented to person, Yes oriented to place and Yes oriented to time HENMT: COMMON NORMALS: normocephalic, atraumatic and hearing grossly normal bilaterally HEAD & SCALP: normocephalic and atraumatic Resp: AUSCULTATION: wheezes Cardio: COMMON NORMALS: regular rate, regular rhythm and No murmurs present (Cardio) RATE: regular rate RHYTHM: regular rhythm GI: COMMON NORMALS: Soft to palpation and No hepatosplenomegaly present AUSCULTATION: Yes normoactive bowel sounds PALPATION: Yes Soft to palpation, No Tenderness to palpation present (GI), No Guarding due to palpation present (GI) and Yes No hepatosplenomegaly present Extremity: COMMON NORMALS: normal to inspection, capillary refill normal, no clubbing, cyanosis or edema, no calf tenderness and no pedal edema Neuro: SENSORIUM/ORIENTATION: Yes oriented to person, Yes oriented to place and Yes oriented to time Skin: COMMON NORMALS: no rashes or lesions noted GENERAL SKIN EXAM: no rashes or lesions noted Course Vital Signs: Vital signs: Vital Signs Temperature 97.9 F 11/15/22 08:30 Pulse Rate 71 11/15/22 10:10 Respiratory Rate 14 11/15/22 10:10 Blood Pressure 151/83 11/15/22 08:30 Pulse Oximetry 97 11/15/22 10:10 Oxygen Delivery Me thod Room Air 11/15/22 10:10 MDM - Asthma Medical Decision Making Improved after nebulizers and steroids. We will discharge patient home on steroid taper and routine use of albuterol the neck several days. Return if has any worsening problems. Labs and imaging reviewed with the patient. Medical Records I reviewed the patient's medical records. Lab Data I reviewed the patient's lab results. 11/15/22 08:51 11/15/22 08:51 Radiology Impressions Chest X-Ray 11/15/22 08:29 Impression: Negative chest. Laboratory Results WBC 9.8 10^3/uL (4.0-10.0) 11/15/22 08:51 RBC 4.30 10^6/uL (4.1-5.3) 11/15/22 08:51 Hgb 13.4 g/dL (11.5-15.3) 11/15/22 08:51 Hct 40.5 % (37.0-47.0) 11/15/22 08:51 MCV 94.2 fl (81-99) 11/15/22 08:51 MCH 31.2 pg (28.0-34.0) 11/15/22 08:51 MCHC 33.1 g/dL (30.0-36.0) 11/15/22 08:51 RDW 11.9 % (12.1-15.1) L 11/15/22 08:51 Plt Count 259 10^3/cmm (130-400) 11/15/22 08:51 MPV 10.8 fL (7.4-10.4) H 11/15/22 08:51 Neut % (Auto) 71.4 % 11/15/22 08:51 Lymph % (Auto) 19.7 % 11/15/22 08:51 [place] % (Auto) 4.5 % 11/15/22 08:51 Eos % (Auto) 3.5 % 11/15/22 08:51 Baso % (Auto) 0.7 % 11/15/22 08:51 Neut # (Auto) 7.01 10^3/uL (1.8-7.7) 11/15/22 08:51 Lymph # (Auto) 1.9 10^3/uL (0.8-4.8) 11/15/22 08:51 [place] # (Auto) 0.4 10^3/uL (0.2-0.9) 11/15/22 08:51 Eos # (Auto) 0.3 10^3/uL (0.0-0.8) 11/15/22 08:51 Baso # (Auto) 0.1 10^3/uL (0.0-0.1) 11/15/22 08:51 Nucleated RBC % (auto) 0 % 11/15/22 08:51 Nucleated RBCs # 0.0 /100WBC 11/15/22 08:51 Sodium 136 mmol/L (136-145) 11/15/22 08:51 Potassium 3.9 mmol/L (3.5-5.1) 11/15/22 08:51 Chloride 101 mmol/L (98-107) 11/15/22 08:51 Carbon Dioxide 23 mmol/L (22-29) 11/15/22 08:51 Anion Gap 15.9 (5-19) 11/15/22 08:51 BUN 6 mg/dL (6-20) 11/15/22 08:51 Creatinine 0.7 mg/dL (0.5-0.9) 11/15/22 08:51 GFR Calculation 97.0 mL/min (90-130) 11/15/22 08:51 Glucose 84 mg/dL (65-115) 11/15/22 08:51 Calculated Osmolality 279 mOsm/kg (285-295) L 11/15/22 08:51 Calcium 8.6 mg/dL (8.5-10.5) 11/15/22 08:51 Total Bilirubin 0.6 mg/dL (0.15-1.2) 11/15/22 08:51 AST 62 U/L (0-32) H 11/15/22 08:51 ALT 83 U/L (0-33) H 11/15/22 08:51 Alkaline Phosphatase 77 U/L (35-105) 11/15/22 08:51 Total Protein 6.8 g/dL (6.6-8.7) 11/15/22 08:51 Albumin 3.9 g/dL (3.5-5.2) 11/15/22 08:51 Globulin 2.9 g/dL (1.3-4.6) 11/15/22 08:51 Discharge Plan Discharge Patient Disposition: Home Clinical Impression: Asthma with exacerbation Condition: Stable Prescriptions: New prednisone 20 mg tablet 20 mg PO TID Qty: 15 0RF Rx Instructions: 1 p.o. 3 times daily x3 days, 1 p.o. twice daily x2 days, 1 p.o. daily x2 days albuterol sulfate 90 mcg/actuation HFA aerosol inhaler 2 inh INHALATION Q4H PRN (Reason: shortness of breath or wheezing) Qty: 18 0RF No Action venlafaxine 75 mg capsule,extended release 24hr 75 mg PO DAILY 30 Days Qty: 30 1RF trazodone 50 mg Tablet 50 mg PO BEDTIME PRN (Reason: Sleep) 30 Days Qty: 30 1RF hydroxyzine pamoate 25 mg Capsule 50 mg PO Q6H PRN (Reason: Anxiety) 30 Days Qty: 120 1RF Discharge Orders: Discharge ED (Routine); Ordered 11/15/22 Ordered By: Josias Guerra Referrals: Shima Tavarez, HYDRAULIC JACK OPERATOR [Primary Care Provider] - Patient Instructions: Opioid Safety, Pain Management Activity Restrictions/Additional Instructions: You were seen today for exacerbation of your asthma. There is a nebulizers were used in the emergency room which she reported good relief with this. We will discharge you home on oral prednisone taper and regular use of albuterol for the next several days. 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
[2022-11-15 08:57] VITALS: PULSE 58; RESP 18; O2SAT 100
[2022-11-15] MEDS: ipratropium-albuterol 3 mL Neb INHALATION (08:57)
[2022-11-15 09:03] VITALS: PULSE 63
[2022-11-15 09:27] LABS: Alanine Aminotransferase 83 U/L (0-33); Albumin Level 3.9 g/dL (3.5-5.2); Alkaline Phosphatase 77 U/L (35-105); Anion Gap 15.9 (5-19); Aspartate Amino Transferase 62 U/L (0-32); Blood Urea Nitrogen 6 mg/dL (6-20); Calcium 8.6 mg/dL (8.5-10.5); Carbon Dioxide 23 mmol/L (22-29); Chloride 101 mmol/L (98-107); Globulin 2.9 g/dL (1.3-4.6); Glucose 84 mg/dL (65-115); Osmolality Calculated 279 mOsm/kg (285-295); Potassium 3.9 mmol/L (3.5-5.1); Sodium 136 mmol/L (136-145); Total Bilirubin 0.6 mg/dL (0.15-1.2); Total Protein 6.8 g/dL (6.6-8.7)
[2022-11-15 10:10] VITALS: PULSE 71; RESP 14; O2SAT 97
[2022-11-15 10:33] LABS: Basophils # 0.1 10^3/uL (0.0-0.1); Basophils % 0.7 %; Eosinophils # 0.3 10^3/uL (0.0-0.8); Eosinophils % 3.5 %; Hematocrit 40.5 % (37.0-47.0); Hemoglobin 13.4 g/dL (11.5-15.3); Lymphocytes # 1.9 10^3/uL (0.8-4.8); Lymphocytes % 19.7 %; Mean Corpuscular HGB Conc 33.1 g/dL (30.0-36.0); Mean Corpuscular Hemoglobin 31.2 pg (28.0-34.0); Mean Corpuscular Volume 94.2 fl (81-99); Mean Platelet Volume 10.8 fL (7.4-10.4); Monocytes # 0.4 10^3/uL (0.2-0.9); Monocytes % 4.5 %; Neutrophils # 7.01 10^3/uL (1.8-7.7); Neutrophils % 71.4 %; Nucleated Red Blood Cells % 0 %; Platelet Count 259 10^3/cmm (130-400); Red Cell Distribution Width 11.9 % (12.1-15.1); White Blood Count 9.8 10^3/uL (4.0-10.0)
== END 2022-11-15 10:30 | disposition home or self-care (01) ==
PROVIDERS: Emergency Provider Family Medicine; PCP Nurse Practitioner Family
DX: J45.901 Unspecified asthma with (acute) exacerbation (principal); F17.210 Nicotine dependence, cigarettes, uncomplicated
CPT/HCPCS: 71045; 80053; 85025; 94640; 96374; 99284; J2930

== ENCOUNTER 2022-11-21 08:18 | Emergency (ER) | payer BC, MEDICAID, SELFPAY ==
[2022-11-21 08:29] VITALS: BP 146/105; PULSE 79; TEMP 36.7; O2SAT 97; BMI 41.1
--- NOTE | 2022-11-21 08:41 | XR_ITS ---
WS: [id number] Exam: XR chest 1V portable [id number] Date/Time of Exam: 11/21/2022 8:47 AM Reason For Exam: dyspnea/cough Findings: The lungs are clear and fully expanded. Costophrenic angles are sharp. No infiltrates. Bronchovascula r relief appears normal. Cardiac silhouette is unremarkable. Bony elements are intact. XR/XR chest 1V portable [id number] IMPRESSION: Unremarkable chest radiograph.
--- NOTE | 2022-11-21 08:52 | ED_ITS ---
HPI - SOB/Dyspnea General: Chief Complaint: Upper Respiratory Infection Stated Complaint: Congestion, Cough Time Seen by Provider: 11/21/22 08:39 Source: patient Mode of arrival: ambulatory History of Present Illness: HPI Narrative: 32 Female presents emergency room complaining of continued cough. We had seen her a week ago chest x-ray was normal she had asthma exacerbation like symptoms we will put her on prednisone encouraged her to continue to use albuterol as needed. She states her cough has now become productive of green mucus. Chest x-ray at the time that she was seen previously was negative MD elicited complaint: shortness of breath and cough Pertinent past history: asthma Onset (ago): week(s) Context: recent illness Timing: constant Severity: mild Exacerbating factors: coughing Relieving factors: bronchodilators Known history of: asthma Associated symptoms: Reports chest congestion and cough; Deny abdominal pain, chest pain, diaphoresis, dizziness, extremity pain, fever(s), hemoptysis, lightheadedness, myalgias, nausea, orthopnea, palpitations, paresthesias, polydipsia, polyuria, rash, sense of impending doom, syncope or vomiting Treatment prior to arrival: bronchodilator Review of Systems Const: Denies: fever(s), chills, fatigue, malaise or diaphoresis ENMT: Denies: throat pain, ear or mastoid pain, nasal discharge or nasal congestion Card: Denies: chest pain, palpitations, lightheadedness, syncope or orthopnea Resp: Reports: dyspnea, productive cough, wheezing and chest congestion; Denies: hemoptysis GI: Denies: abdominal pain, nausea or vomiting : Denies: flank pain, difficulty voiding, dysuria, urinary frequency or urinary urgency Musc: Denies: extremity pain Skin/Breast: Denies: rash or pruritus Neuro: Denies: dizziness Endo: Denies: polyuria or polydipsia PFSH ED PFSH: Medical History Asthma Biliary dyskinesia Depression Psychiatric care Surgical History History of laparoscopic cholecystectomy History of tonsillectomy and adenoidectomy Hx of colonoscopy AGE 18 No significant past surgical history Social History (Reviewed 11/21/22 @ 08:54 by TATIANA Valderrama Smoking and tobacco status: current every day smoker Alcohol intake: current Alcohol intake frequency: holidays/special occasions only Physical Exam Const: GENERAL APPEARANCE: cooperative and comfortable ORIENTATION/CONSCIOUSNESS: Yes awake, Yes oriented to person, Yes oriented to place and Yes oriented to time HENMT: COMMON NORMALS: normocephalic, atraumatic and hearing grossly normal bilaterally HEAD & SCALP: normocephalic and atraumatic Resp: COMMON NORMALS: normal respiratory effort, No retractions and No use of accessory muscles AUSCULTATION: rhonchi and wheezes Cardio: COMMON NORMALS: regular rate, regular rhythm and No murmurs present (Cardio) RATE: regular rate RHYTHM: regular rhythm GI: COMMON NORMALS: Soft to palpation and No hepatosplenomegaly present AUSCULTATION: Yes normoactive bowel sounds PALPATION: Yes Soft to palpation, No Tenderness to palpation present (GI), No Guarding due to palpation present (GI) and Yes No hepatosplenomegaly present Extremity: COMMON NORMALS: normal to inspection, capillary refill normal, no clubbing, cyanosis or edema, no calf tenderness and no pedal edema Neuro: SENSORIUM/ORIENTATION: Yes oriented to person, Yes oriented to place and Yes oriented to time Skin: COMMON NORMALS: no rashes or lesions noted GENERAL SKIN EXAM: no rashes or lesions noted Course Vital Signs: Vital signs: Vital Signs Temperature 98.1 F 11/21/22 08:29 Pulse Rate 79 11/21/22 08:29 Blood Pressure 146/105 11/21/22 08:29 Pulse Oximetry 97 11/21/22 08:29 Oxygen Delivery Me thod Room Air 11/21/22 08:29 MDM - SOB/Dyspnea Medical Decision Making Seen today for persistent asthma exacerbation she is not wheezing is bilaterally seen a week ago she has completed the course of steroids. She is reporting a productive cough that is persisting. We will go ahead and start her on doxycycline 100 p.o. twice daily and continue albuterol nebs. Follow-up with her primary care if not improving Medical Records I reviewed the patient's medical records. Lab Data I reviewed the patient's lab results. 11/21/22 09:10 Labs/Radiology: Radiology Impressions Chest X-Ray 11/21/22 08:41 IMPRESSION: Unremarkable chest radiograph. Laboratory Results WBC 11.3 10^3/uL (4.0-10.0) H 11/21/22 09:10 RBC 4.23 10^6/uL (4.1-5.3) 11/21/22 09:10 Hgb 13.2 g/dL (11.5-15.3) 11/21/22 09:10 Hct 39.6 % (37.0-47.0) 11/21/22 09:10 MCV 93.6 fl (81-99) 11/21/22 09:10 MCH 31.2 pg (28.0-34.0) 11/21/22 09:10 MCHC 33.3 g/dL (30.0-36.0) 11/21/22 09:10 RDW 12.3 % (12.1-15.1) 11/21/22 09:10 Plt Count 251 10^3/cmm (130-400) 11/21/22 09:10 MPV 9.4 fL (7.4-10.4) 11/21/22 09:10 Neut % (Auto) 63.1 % 11/21/22 09:10 Lymph % (Auto) 24.6 % 11/21/22 09:10 [place] % (Auto) 6.6 % 11/21/22 09:10 Eos % (Auto) 4.0 % 11/21/22 09:10 Baso % (Auto) 0.6 % 11/21/22 09:10 Neut # (Auto) 7.11 10^3/uL (1.8-7.7) 11/21/22 09:10 Lymph # (Auto) 2.8 10^3/uL (0.8-4.8) 11/21/22 09:10 [place] # (Auto) 0.7 10^3/uL (0.2-0.9) 11/21/22 09:10 Eos # (Auto) 0.5 10^3/uL (0.0-0.8) 11/21/22 09:10 Baso # (Auto) 0.1 10^3/uL (0.0-0.1) 11/21/22 09:10 Nucleated RBC % (auto) 0 % 11/21/22 09:10 Nucleated RBCs # 0.0 /100WBC 11/21/22 09:10 Discharge Plan Discharge Patient Disposition: Home Clinical Impression: Asthma exacerbation Condition: Stable Prescriptions: New doxycycline hyclate 100 mg capsule 100 mg PO BID 10 Days Qty: 20 0RF No Action venlafaxine 75 mg capsule,extended release 24hr 75 mg PO DAILY 30 Days Qty: 30 1RF trazodone 50 mg Tablet 50 mg PO BEDTIME PRN (Reason: Sleep) 30 Days Qty: 30 1RF hydroxyzine pamoate 25 mg Capsule 50 mg PO Q6H PRN (Reason: Anxiety) 30 Days Qty: 120 1RF albuterol sulfate 90 mcg/actuation HFA aerosol inhaler 2 inh INHALATION Q4H PRN (Reason: shortness of breath or wheezing) Qty: 18 0RF Discharge Orders: Discharge ED (Routine); Ordered 11/21/22 Ordered By: Josias Guerra Referrals: Shima Tavarez, CONTAINER FINISHER [Primary Care Provider] - Discharge Diet: Usual diet Discharge Activity: Increase activity as tolerated Patient Instructions: Opioid Safety, Pain Management Activity Restrictions/Additional Instructions: You are seen today for persistent exacerbation of your asthma. Recommend that you start taking doxycycline 100 mg twice a day because of the increasing productive cough. Continue to use the albuterol as previously prescribed. Coding Level of Care Code ED Photography And Print[employer] Curator for Ko Cabrera
[2022-11-21 09:23] LABS: Basophils # 0.1 10^3/uL (0.0-0.1); Basophils % 0.6 %; Eosinophils # 0.5 10^3/uL (0.0-0.8); Hematocrit 39.6 % (37.0-47.0); Hemoglobin 13.2 g/dL (11.5-15.3); Lymphocytes # 2.8 10^3/uL (0.8-4.8); Lymphocytes % 24.6 %; Mean Corpuscular HGB Conc 33.3 g/dL (30.0-36.0); Mean Corpuscular Hemoglobin 31.2 pg (28.0-34.0); Mean Corpuscular Volume 93.6 fl (81-99); Mean Platelet Volume 9.4 fL (7.4-10.4); Monocytes # 0.7 10^3/uL (0.2-0.9); Monocytes % 6.6 %; Neutrophils # 7.11 10^3/uL (1.8-7.7); Neutrophils % 63.1 %; Nucleated Red Blood Cells % 0 %; Platelet Count 251 10^3/cmm (130-400); Red Blood Count 4.23 10^6/uL (4.1-5.3); Red Cell Distribution Width 12.3 % (12.1-15.1); White Blood Count 11.3 10^3/uL (4.0-10.0)
== END 2022-11-21 10:08 | disposition home or self-care (01) ==
PROVIDERS: Emergency Provider Family Medicine; PCP Nurse Practitioner Family
DX: J45.901 Unspecified asthma with (acute) exacerbation (principal); F17.210 Nicotine dependence, cigarettes, uncomplicated
CPT/HCPCS: 36415; 71045; 85025; 99284

== ENCOUNTER 2022-12-14 16:47 | Emergency (ER) | payer BC, MEDICAID, SELFPAY ==
--- NOTE | 2022-12-14 17:15 | W.ED.PSYCHS ---
Documented by User: Josias Guerra DO 12/15/22 06:04 HPI - Psych General: Chief Complaint: Alcohol Stated Complaint: Mental Health Time Seen by Provider: 12/14/22 17:08 Source: patient Mode of arrival: ambulatory History of Present Illness: 33-year-old female presents to the emergency room with complaints of alcohol abuse. She is been drinking up to 1/5 a day whiskey for several years she last drank heavily yesterday she had a few small what she describes as shooters this morning and nothing since she has not had any tremors. She had contacted her counselor at [facility] and was advised to come to the emergency room. MD complaint: feels depressed Onset (ago): month(s) Duration: intermittent Exacerbating factors: alcohol Context: recent alcohol abuse Associated symptoms: Deny auditory hallucinations, visual hallucinations, delusions, depression, homicidal ideation, suicidal ideation or racing thoughts Review of Systems Const: Denies: fever(s), chills, body aches, change in appetite, fatigue or malaise ENMT: Denies: throat pain, ear or mastoid pain, nasal discharge or nasal congestion Card: Denies: chest pain, edema, dyspnea on exertion or orthopnea Resp: Denies: dyspnea, productive cough or non-productive cough GI: Denies: abdominal pain, nausea, vomiting, hematemesis, coffee ground emesis, diarrhea, constipation, bloating, hematochezia or melena : Denies: flank pain, difficulty voiding, dysuria, urinary frequency or urinary urgency Skin/Breast: Denies: rash or pruritus Psych: Denies: depression, visual hallucinations, auditory hallucinations, suicidal ideation or homicidal ideation [facility] ED PFSH: Medical History Asthma Biliary dyskinesia Depression Psychiatric care Surgical History History of laparoscopic cholecystectomy History of tonsillectomy and adenoidectomy Hx of colonoscopy AGE 18 No significant past surgical history Social History Smoking and tobacco status: current every day smoker Alcohol intake: current Alcohol intake frequency: holidays/special occasions only Physical Exam Const: GENERAL APPEARANCE: cooperative and comfortable ORIENTATION/CONSCIOUSNESS: Yes awake, Yes oriented to person, Yes oriented to place and Yes oriented to time HENMT: COMMON NORMALS: normocephalic, atraumatic and hearing grossly normal bilaterally HEAD & SCALP: normocephalic and atraumatic Resp: COMMON NORMALS: normal respiratory effort, No retractions, No use of accessory muscles and clear to auscultation bilaterally AUSCULTATION: clear to auscultation bilaterally Cardio: COMMON NORMALS: regular rate, regular rhythm and No murmurs present (Cardio) RATE: regular rate RHYTHM: regular rhythm Extremity: COMMON NORMALS: normal to inspection, capillary refill normal, no clubbing, cyanosis or edema, no calf tenderness and no pedal edema Neuro: SENSORIUM/ORIENTATION: Yes oriented to person, Yes oriented to place and Yes oriented to time Psych: THOUGHT CONTENT: No delusions Skin: COMMON NORMALS: no rashes or lesions noted GENERAL SKIN EXAM: no rashes or lesions noted Course Vital Signs: Vital signs: Vital Signs Temperature 98.2 F 12/14/22 17:47 Pulse Rate 65 12/14/22 17:47 Respiratory Rate 18 12/14/22 17:47 Blood Pressure 146/106 12/14/22 17:47 Pulse Oximetry 98 12/14/22 17:47 Oxygen Delivery Me thod Room Air 12/14/22 17:47 MDM - Psych Medical Decision Making Care signed out to Dr. Hylton at change of shift. See final notes for diagnosis and disposition. Patient presents rhythm history of alcohol abuse wanting detox she has no signs of withdrawals here she is well-appearing I did speak to her at length we will write her Librium in case she does have any withdrawal symptoms she is to contact turning [employer]. Lab Data 12/14/22 17:47 12/14/22 17:47 Laboratory Results WBC 7.8 10^3/uL (4.0-10.0) 12/14/22 17:47 RBC 4.37 10^6/uL (4.1-5.3) 12/14/22 17:47 Hgb 13.8 g/dL (11.5-15.3) 12/14/22 17:47 Hct 41.9 % (37.0-47.0) 12/14/22 17:47 MCV 95.9 fl (81-99) 12/14/22 17:47 MCH 31.6 pg (28.0-34.0) 12/14/22 17:47 MCHC 32.9 g/dL (30.0-36.0) 12/14/22 17:47 RDW 12.9 % (12.1-15.1) 12/14/22 17:47 Plt Count 265 10^3/cmm (130-400) 12/14/22 17: MPV 10.0 fL (7.4-10.4) 12/14/22 17:47 Neut % (Auto) 61.0 % 12/14/22 17:47 Lymph % (Auto) 26.9 % 12/14/22 17:47 [place] % (Auto) 8.0 % 12/14/22 17:47 Eos % (Auto) 3.2 % 12/14/22 17:47 Baso % (Auto) 0.5 % 12/14/22 17:47 Neut # (Auto) 4.74 10^3/uL (1.8-7.7) 12/14/22 17: Lymph # (Auto) 2.1 10^3/uL (0.8-4.8) 12/14/22 17:47 [place] # (Auto) 0.6 10^3/uL (0.2-0.9) 12/14/22 17:47 Eos # (Auto) 0.3 10^3/uL (0.0-0.8) 12/14/22 17:47 Baso # (Auto) 0.0 10^3/uL (0.0-0.1) 12/14/22 17: Nucleated RBC % (auto) 0 % 12/14/22 17:47 Nucleated RBCs # 0.0 /100WBC 12/14/22 17:47 Sodium 136 mmol/L (136-145) 12/14/22 17:47 Potassium 3.9 mmol/L (3.5-5.1) 12/14/22 17:47 Chloride 100 mmol/L (98-107) 12/14/22 17:47 Carbon Dioxide 24 mmol/L (22-29) 12/14/22 17:47 Anion Gap 15.9 (5-19) 12/14/22 17:47 BUN 5 mg/dL (6-20) L 12/14/22 17:47 Creatinine 0.8 mg/dL (0.5-0.9) 12/14/22 17:47 GFR Calculation 83.1 mL/min (90-130) L 12/14/22 17:47 Glucose 90 mg/dL (65-115) 12/14/22 17:47 Calculated Osmolality 279 mOsm/kg (285-295) L 12/14/22 17:47 Calcium 8.6 mg/dL (8.5-10.5) 12/14/22 17:47 Total Bilirubin 0.2 mg/dL (0.15-1.2) 12/14/22 17:47 AST 56 U/L (0-32) H 12/14/22 17:47 ALT 68 U/L (0-33) H 12/14/22 17:47 Alkaline Phosphatase 89 U/L (35-105) 12/14/22 17:47 Total Protein 6.3 g/dL (6.6-8.7) L 12/14/22 17:47 Albumin 3.9 g/dL (3.5-5.2) 12/14/22 17:47 Globulin 2.4 g/dL (1.3-4.6) 12/14/22 17:47 HCG, Qual Negative (Negative) 12/14/22 17:47 Urine Color Yellow (Yellow) 12/14/22 18:00 Urine Appearance Clear (CLEAR) 12/14/22 18:00 Urine pH 6 (5-7) 12/14/22 18:00 Ur Specific [place] 1.020 (1.005-1.030) 12/14/22 18:00 Urine Protein Neg (Negative) 12/14/22 18:00 Urine Glucose (UA) Norm (Normal) 12/14/22 18:00 Urine Ketones Negative (Negative) 12/14/22 18:00 Urine Blood Neg (Negative) 12/14/22 18:00 Urine Nitrate Negative (Negative) 12/14/22 18:00 Urine Bilirubin Neg (Negative) 12/14/22 18:00 Urine Urobilinogen 1 mg/dL (Negative) H 12/14/22 18:00 Ur Leukocyte Esterase Negative (Negative) 12/14/22 18:00 Salicylates < 0.3 mg/dL (3-10) L 12/14/22 17:47 Acetaminophen < 5.0 ug/mL (10-30) L 12/14/22 17:47 Ethyl Alcohol < 10 mg/dL (0-10) 12/14/22 17:47 Discharge Plan Discharge Patient Disposition: Home Clinical Impression: ETOH abuse Condition: Stable Prescriptions: New chlordiazepoxide HCl 10 mg capsule 10 mg PO Q8H PRN (Reason: withdrawal symptoms) Qty: 20 0RF No Action venlafaxine 75 mg capsule,extended release 24hr 75 mg PO DAILY 30 Days Qty: 30 1RF trazodone 50 mg Tablet 50 mg PO BEDTIME PRN (Reason: Sleep) 30 Days Qty: 30 1RF hydroxyzine pamoate 25 mg Capsule 50 mg PO Q6H PRN (Reason: Anxiety) 30 Days Qty: 120 1RF albuterol sulfate 90 mcg/actuation HFA aerosol inhaler 2 inh INHALATION Q4H PRN (Reason: shortness of breath or wheezing) Qty: 18 0RF Discharge Orders: Discharge ED (Routine); Ordered 12/14/22 Ordered By: Jessenia Hylton Referrals: Shima Tavarez FNP [Primary Care Provider] - 1-3 days Discharge Diet: Advance as tolerated Discharge Activity: Resume usual activity Patient Instructions: Abuse of Alcohol (ED) Coding Level of Care Code ED Internal Medicine Specialist for Chg Fwd Documented by User: Jessenia Hylton MD 12/14/22 18:41 HPI - Psych General: Chief Complaint: Alcohol Stated Complaint: Mental Health Time Seen by Provider: 12/14/22 17:08 PFSH ED PFSH: Medical History Asthma Biliary dyskinesia Depression Psychiatric care Surgical History History of laparoscopic cholecystectomy History of tonsillectomy and adenoidectomy Hx of colonoscopy AGE 18 No significant past surgical history Social History Smoking and tobacco status: current every day smoker Alcohol intake: current Alcohol intake frequency: holidays/special occasions only Course Vital Signs: Vital signs: Vital Signs Temperature 98.2 F 12/14/22 17:47 Pulse Rate 65 12/14/22 17:47 Respiratory Rate 18 12/14/22 17:47 Blood Pressure 146/106 12/14/22 17:47 Pulse Oximetry 98 12/14/22 17:47 Oxygen Delivery Me thod Room Air 12/14/22 17:47 MDM - Psych Medical Decision Making Patient presents rhythm history of alcohol abuse wanting detox she has no signs of withdrawals here she is well-appearing I did speak to her at length we will write her Librium in case she does have any withdrawal symptoms she is to contact isak rousseau. Medical Records I reviewed the patient's medical records. Lab Data I reviewed the patient's lab results. 12/14/22 17:47 12/14/22 17:47 Laboratory Results WBC 7.8 10^3/uL (4.0-10.0) 12/14/22 17:47 RBC 4.37 10^6/uL (4.1-5.3) 12/14/22 17:47 Hgb 13.8 g/dL (11.5-15.3) 12/14/22 17:47 Hct 41.9 % (37.0-47.0) 12/14/22 17:47 MCV 95.9 fl (81-99) 12/14/22 17:47 MCH 31.6 pg (28.0-34.0) 12/14/22 17:47 MCHC 32.9 g/dL (30.0-36.0) 12/14/22 17:47 RDW 12.9 % (12.1-15.1) 12/14/22 17:47 Plt Count 265 10^3/cmm (130-400) 12/14/22 17:47 MPV 10.0 fL (7.4-10.4) 12/14/22 17:47 Neut % (Auto) 61.0 % 12/14/22 17:47 Lymph % (Auto) 26.9 % 12/14/22 17:47 [place] % (Auto) 8.0 % 12/14/22 17:47 Eos % (Auto) 3.2 % 12/14/22 17:47 Baso % (Auto) 0.5 % 12/14/22 17:47 Neut # (Auto) 4.74 10^3/uL (1.8-7.7) 12/14/22 17:47 Lymph # (Auto) 2.1 10^3/uL (0.8-4.8) 12/14/22 17:47 [place] # (Auto) 0.6 10^3/uL (0.2-0.9) 12/14/22 17:47 Eos # (Auto) 0.3 10^3/uL (0.0-0.8) 12/14/22 17:47 Baso # (Auto) 0.0 10^3/uL (0.0-0.1) 12/14/22 17:47 Nucleated RBC % (auto) 0 % 12/14/22 17: Nucleated RBCs # 0.0 /100WBC 12/14/22 17:47 Sodium 136 mmol/L (136-145) 12/14/22 17:47 Potassium 3.9 mmol/L (3.5-5.1) 12/14/22 17:47 Chloride 100 mmol/L (98-107) 12/14/22 17:47 Carbon Dioxide 24 mmol/L (22-29) 12/14/22 17:47 Anion Gap 15.9 (5-19) 12/14/22 17:47 BUN 5 mg/dL (6-20) L 12/14/22 17:47 Creatinine 0.8 mg/dL (0.5-0.9) 12/14/22 17:47 GFR Calculation 83.1 mL/min (90-130) L 12/14/22 17:47 Glucose 90 mg/dL (65-115) 12/14/22 17:47 Calculated Osmolality 279 mOsm/kg (285-295) L 12/14/22 17:47 Calcium 8.6 mg/dL (8.5-10.5) 12/14/22 17:47 Total Bilirubin 0.2 mg/dL (0.15-1.2) 12/14/22 17:47 AST 56 U/L (0-32) H 12/14/22 17:47 ALT 68 U/L (0-33) H 12/14/22 17:47 Alkaline Phosphatase 89 U/L (35-105) 12/14/22 17:47 Total Protein 6.3 g/dL (6.6-8.7) L 12/14/22 17:47 Albumin 3.9 g/dL (3.5-5.2) 12/14/22 17:47 Globulin 2.4 g/dL (1.3-4.6) 12/14/22 17:47 HCG, Qual Negative (Negative) 12/14/22 17:47 Urine Color Yellow (Yellow) 12/14/22 18:00 Urine Appearance Clear (CLEAR) 12/14/22 18:00 Urine pH 6 (5-7) 12/14/22 18:00 Ur Specific [place] 1.020 (1.005-1.030) 12/14/22 18:00 Urine Protein Neg (Negative) 12/14/22 18:00 Urine Glucose (UA) Norm (Normal) 12/14/22 18:00 Urine Ketones Negative (Negative) 12/14/22 18:00 Urine Blood Neg (Negative) 12/14/22 18:00 Urine Nitrate Negative (Negative) 12/14/22 18:00 Urine Bilirubin Neg (Negative) 12/14/22 18:00 Urine Urobilinogen 1 mg/dL (Negative) H 12/14/22 18:00 Ur Leukocyte Esterase Negative (Negative) 12/14/22 18:00 Salicylates < 0.3 mg/dL (3-10) L 12/14/22 17:47 Acetaminophen < 5.0 ug/mL (10-30) L 12/14/22 17:47 Ethyl Alcohol < 10 mg/dL (0-10) 12/14/22 17:47 Discharge Plan Discharge Patient Disposition: Home Clinical Impression: ETOH abuse Condition: Stable Prescriptions: New chlordiazepoxide HCl 10 mg capsule 10 mg PO Q8H PRN (Reason: withdrawal symptoms) Qty: 20 0RF No Action venlafaxine 75 mg capsule,extended release 24hr 75 mg PO DAILY 30 Days Qty: 30 1RF trazodone 50 mg Tablet 50 mg PO BEDTIME PRN (Reason: Sleep) 30 Days Qty: 30 1RF hydroxyzine pamoate 25 mg Capsule 50 mg PO Q6H PRN (Reason: Anxiety) 30 Days Qty: 120 1RF albuterol sulfate 90 mcg/actuation HFA aerosol inhaler 2 inh INHALATION Q4H PRN (Reason: shortness of breath or wheezing) Qty: 18 0RF Discharge Orders: Discharge ED (Routine); Ordered 12/14/22 Ordered By: Jessenia Hylton Referrals: Shima Tavarez FNP [Primary Care Provider] - 1-3 days Discharge Diet: Advance as tolerated Discharge Activity: Resume usual activity Patient Instructions: Abuse of Alcohol (ED) Coding Level of Care Code ED Internal Medicine Specialist for Ko Cabrera
[2022-12-14 17:47] VITALS: BP 146/106; PULSE 65; RESP 18; TEMP 36.8; O2SAT 98
[2022-12-14] MEDS: acetaminophen 500 mg Tablet 1000 MG PO (17:59)
[2022-12-14] MEDS: LORazepam 2 mg Tablet PO (18:00)
[2022-12-14 18:04] LABS: Basophils % 0.5 %; Eosinophils # 0.3 10^3/uL (0.0-0.8); Eosinophils % 3.2 %; Hematocrit 41.9 % (37.0-47.0); Hemoglobin 13.8 g/dL (11.5-15.3); Lymphocytes # 2.1 10^3/uL (0.8-4.8); Lymphocytes % 26.9 %; Mean Corpuscular HGB Conc 32.9 g/dL (30.0-36.0); Mean Corpuscular Hemoglobin 31.6 pg (28.0-34.0); Mean Corpuscular Volume 95.9 fl (81-99); Monocytes # 0.6 10^3/uL (0.2-0.9); Neutrophils # 4.74 10^3/uL (1.8-7.7); Nucleated Red Blood Cells % 0 %; Platelet Count 265 10^3/cmm (130-400); Red Blood Count 4.37 10^6/uL (4.1-5.3); Red Cell Distribution Width 12.9 % (12.1-15.1); White Blood Count 7.8 10^3/uL (4.0-10.0)
[2022-12-14 18:15] LABS: Add Urine Microscopic? NO; Bilirubin Urine Neg (Negative); Blood Urine Neg (Negative); Charge for UA Resulting for Rev; Glucose Urine UA Norm (Normal); Ketones Urine Negative (Negative); Leukocyte Esterase Urine Negative (Negative); Nitrate Urine Negative (Negative); Protein Urine Neg (Negative); Urine Appearance Clear (CLEAR); Urine Color Yellow (Yellow); Urobilinogen Urine 1 mg/dL (Negative); pH Urine 6 (5-7)
[2022-12-14 18:17] LABS: HCG, Serum Qual Negative (Negative)
[2022-12-14 18:27] LABS: Alanine Aminotransferase 68 U/L (0-33); Albumin Level 3.9 g/dL (3.5-5.2); Alkaline Phosphatase 89 U/L (35-105); Anion Gap 15.9 (5-19); Aspartate Amino Transferase 56 U/L (0-32); Blood Urea Nitrogen 5 mg/dL (6-20); Calcium 8.6 mg/dL (8.5-10.5); Carbon Dioxide 24 mmol/L (22-29); Chloride 100 mmol/L (98-107); Globulin 2.4 g/dL (1.3-4.6); Glomerular Filtration Rate 83.1 mL/min (90-130); Glucose 90 mg/dL (65-115); Osmolality Calculated 279 mOsm/kg (285-295); Potassium 3.9 mmol/L (3.5-5.1); Sodium 136 mmol/L (136-145); Total Bilirubin 0.2 mg/dL (0.15-1.2); Total Protein 6.3 g/dL (6.6-8.7)
[2022-12-14 18:28] LABS: Acetaminophen < 5.0 ug/mL (10-30); Alcohol Level < 10 mg/dL (0-10); Salicylate < 0.3 mg/dL (3-10)
== END 2022-12-14 18:51 | disposition home or self-care (01) ==
PROVIDERS: Family Medicine; Emergency Provider Emergency Medicine; PCP Nurse Practitioner Family
DX: F10.10 Alcohol abuse, uncomplicated (principal)
CPT/HCPCS: 36415; 80053; 80307; 81003; 84703; 85025; 99283

== ENCOUNTER 2022-12-26 22:55 | Emergency (ER) | payer BC, MEDICAID, SELFPAY ==
[2022-12-26 22:56] VITALS: BMI 41.1
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
[2022-12-26 22:59] VITALS: BP 109/87; PULSE 112; RESP 16; TEMP 37.1; O2SAT 95
[2022-12-26] MEDS: fluorescein 1 mg Strip EYE-LEFT (23:52)
[2022-12-26] MEDS: bacitracin ointment Pkt 1 EACH TOPICAL (23:52)
[2022-12-26] MEDS: amoxicillin-clav 875-125 mg Tablet 1 TAB PO (23:52)
[2022-12-26] MEDS: tetracaine 0.5% Op Soln 4 mL Btl 1 DROP EYE-LEFT (23:52)
[2022-12-26] MEDS: neomycin-poly-dex Op 5 mL Btl 2 DROP EYE-LEFT (23:52)
[2022-12-26] MEDS: tetanus-dipt-pertussis 0.5 mL SDV IM (23:55)
[2022-12-27 00:09] VITALS: BP 135/99; PULSE 102; RESP 16; O2SAT 95
== END 2022-12-27 00:13 | disposition home or self-care (01) ==
PROVIDERS: Emergency Provider Nurse Practitioner Family; PCP Nurse Practitioner Family
DX: S05.02XA Injury of conjunctiva and corneal abrasion without foreign body, left eye, initial encounter (principal); S50.311A Abrasion of right elbow, initial encounter; S70.311A Abrasion, right thigh, initial encounter; S30.811A Abrasion of abdominal wall, initial encounter; F17.210 Nicotine dependence, cigarettes, uncomplicated; Y04.2XXA Assault by strike against or bumped into by another person, initial encounter; Z23 Encounter for immunization
CPT/HCPCS: 90715; 99283

== ENCOUNTER 2023-01-12 16:49 | Emergency (ER) | payer BC, MEDICAID, SELFPAY ==
[2023-01-12 16:51] VITALS: BP 165/86; PULSE 104; O2SAT 98; BMI 41.1
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
--- NOTE | 2023-01-12 17:09 | XRR_ITS ---
PROCEDURE INFORMATION: Exam: XR Right Forearm Exam date and time: 01/12/2023 5:14 PM Age: 32 years old Clinical indication: Pain; Lower or forearm; Right; Additional info: Lac, eval foreign body TECHNIQUE: Imaging protocol: Radiologic exam of the right forearm. Views: 2 views. COMPARISON: No relevant prior studies available. FINDINGS: Bones/joints: Normal. Soft tissues: Laceration in the medial forearm. No foreign body visualized. XR/XR forearm RT 2V [id number] IMPRESSION: No acute findings.
--- NOTE | 2023-01-12 17:15 | PC.NURSE ---
PT IS VERY TEARFUL, UPSET, AND IS NOT WILLING TO GIVE URINE SPECIMEN AT THIS TIME. PT STATES THAT SHE IS WANTING TO KILL HERSELF. SHERIFF VELAZQUEZ REASSURES CHARGE NURSE THAT PT WILL BE PLACED ON SUICIDE PRECAUTIONS AT DISCHARGE WHEN THEY TAKE HER BACK TO [facility]. IS AWARE
[2023-01-12 17:34] LABS: Basophils # 0.1 10^3/uL (0.0-0.1); Basophils % 1.4 %; Eosinophils # 0.3 10^3/uL (0.0-0.8); Eosinophils % 3.1 %; Hematocrit 44.9 % (37.0-47.0); Hemoglobin 14.9 g/dL (11.5-15.3); Lymphocytes # 2.5 10^3/uL (0.8-4.8); Lymphocytes % 31.5 %; Mean Corpuscular HGB Conc 33.2 g/dL (30.0-36.0); Mean Corpuscular Hemoglobin 31.5 pg (28.0-34.0); Mean Corpuscular Volume 94.9 fl (81-99); Mean Platelet Volume 9.5 fL (7.4-10.4); Monocytes # 0.5 10^3/uL (0.2-0.9); Monocytes % 6.7 %; Neutrophils # 4.55 10^3/uL (1.8-7.7); Neutrophils % 56.3 %; Nucleated Red Blood Cells % 0 %; Platelet Count 297 10^3/cmm (130-400); Red Blood Count 4.73 10^6/uL (4.1-5.3); Red Cell Distribution Width 12.3 % (12.1-15.1); White Blood Count 8.1 10^3/uL (4.0-10.0)
[2023-01-12 17:55] LABS: Alanine Aminotransferase 88 U/L (0-33); Albumin Level 4.4 g/dL (3.5-5.2); Alcohol Level 217 mg/dL (0-10); Alkaline Phosphatase 124 U/L (35-105); Anion Gap 20.6 (5-19); Aspartate Amino Transferase 75 U/L (0-32); Blood Urea Nitrogen 7 mg/dL (6-20); Calcium 8.5 mg/dL (8.5-10.5); Carbon Dioxide 22 mmol/L (22-29); Chloride 104 mmol/L (98-107); Globulin 2.9 g/dL (1.3-4.6); Glomerular Filtration Rate 83.1 mL/min (90-130); Glucose 92 mg/dL (65-115); Osmolality Calculated 294 mOsm/kg (285-295); Potassium 3.6 mmol/L (3.5-5.1); Sodium 143 mmol/L (136-145); Total Bilirubin 0.3 mg/dL (0.15-1.2); Total Protein 7.3 g/dL (6.6-8.7)
[2023-01-12] MEDS: LORazepam 1 mg Tablet PO (17:57)
[2023-01-12 18:08] LABS: Acetaminophen < 5.0 ug/mL (10-30); Salicylate < 0.3 mg/dL (3-10)
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
[2023-01-12] MEDS: lidocaine-epi 1% 20 mL INJ INJECTION (18:49)
[2023-01-12 19:10] VITALS: BP 165/86; PULSE 104; O2SAT 98
[2023-01-12 20:04] LABS: Thyroid Stimulating Hormone 2.64 uIU/mL (0.27-4.20)
== END 2023-01-12 19:11 ==
PROVIDERS: Emergency Provider Emergency Medicine; PCP Nurse Practitioner Family
DX: S41.111A Laceration without foreign body of right upper arm, initial encounter (principal); Y04.2XXA Assault by strike against or bumped into by another person, initial encounter; R45.1 Restlessness and agitation; R45.851 Suicidal ideations; F10.120 Alcohol abuse with intoxication, uncomplicated; Y90.7 Blood alcohol level of 200-239 mg/100 ml; Z23 Encounter for immunization
CPT/HCPCS: 12002; 36415; 73090; 80053; 80307; 84443; 85025; 99284

== ENCOUNTER 2023-01-16 01:31 | Emergency (ER) | payer BC, MEDICAID, SELFPAY ==
[2023-01-16 01:35] VITALS: BMI 41.1
[2023-01-16 01:38] VITALS: BP 161/103; PULSE 90; RESP 16; TEMP 36.9; O2SAT 97
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
[2023-01-16 02:23] VITALS: BP 139/80; PULSE 84; RESP 18; TEMP 36.9; O2SAT 98
== END 2023-01-16 02:24 | disposition home or self-care (01) ==
PROVIDERS: Emergency Provider Physician Assistant; PCP Nurse Practitioner Family
DX: L53.8 Other specified erythematous conditions (principal)
CPT/HCPCS: 99283

== ENCOUNTER 2023-01-22 20:41 | Emergency (ER) | payer BC, MEDICAID, SELFPAY ==
[2023-01-22 20:48] VITALS: PULSE 100; RESP 18; TEMP 36.7; O2SAT 95; BMI 41.1
[2023-01-22 21:24] LABS: HCG Qualitative Urine. Negative (Negative)
[2023-01-22 21:34] LABS: Add Urine Microscopic? NO; Charge for UA Resulting for Rev
[2023-01-22 21:40] LABS: Bilirubin Urine Neg (Negative); Blood Urine Neg (Negative); Glucose Urine UA Norm (Normal); Ketones Urine Negative (Negative); Leukocyte Esterase Urine Negative (Negative); Nitrate Urine Negative (Negative); Protein Urine Neg (Negative); Urine Appearance Clear (CLEAR); Urine Color Colorless (Yellow); Urobilinogen Urine Norm (Negative); pH Urine 7 (5-7)
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
[2023-01-22 22:20] VITALS: BP 134/89; PULSE 89; RESP 14; O2SAT 99
[2023-01-23 00:01] VITALS: PULSE 91; RESP 16; O2SAT 99
== END 2023-01-23 00:02 | disposition home or self-care (01) ==
PROVIDERS: Emergency Provider Physician Assistant; PCP Nurse Practitioner Family
DX: F17.210 Nicotine dependence, cigarettes, uncomplicated (principal)
CPT/HCPCS: 81003; 81025; 87070; 87077; 87205; 87491; 87591; 99283

== ENCOUNTER 2023-01-29 10:11 | Emergency (ER) | payer BC, MEDICAID, SELFPAY ==
[2023-01-29 11:15] VITALS: BP 148/103; PULSE 48; RESP 16; O2SAT 99; BMI 39.4
[2023-01-29 11:20] VITALS: BP 145/103; PULSE 52; RESP 16; O2SAT 98
--- NOTE | 2023-01-29 11:23 | W.ED.LOWEXIN ---
HPI - Extremity Injury (Lower) General: Chief Complaint: Extremity Injury, Lower Stated Complaint: Right foot swelling Time Seen by Provider: 01/29/23 10:18 Source: patient Mode of arrival: ambulatory Limitations: no limitations History of Present Illness: Patient is a 32-year-old female presents to ED today with a complaint of pain and swelling to the lateral aspect of her right foot that she noticed this morning. Patient denies any known injury or trauma to the foot. Pain seems to be worse with palpation and ambulation. She has not noticed any significant redness or warmth. Reports chronic plantar fasciitis. complaint: foot injury Onset (ago): hour(s) Injury: Right: foot Place: home Severity: moderate Relieving factors: immobilization Exacerbating factors: weight bearing, movement and palpation Context: other (unknown injury) Associated symptoms: Reports no associated symptoms Other symptoms: none Review of Systems Const: Denies: fever(s), chills, body aches, fatigue or malaise Musc: Reports: extremity pain (R foot) and extremity swelling (R foot); Denies: neck pain, back pain, joint pain or joint swelling Skin/Breast: Denies: rash Neuro: Denies: headache(s), numbness in extremities, weakness in extremities or sensory changes PFSH ED PFSH: Medical History Asthma Biliary dyskinesia Depression Psychiatric care Surgical History History of laparoscopic cholecystectomy History of tonsillectomy and adenoidectomy Hx of colonoscopy AGE 18 No significant past surgical history Social History Smoking and tobacco status: current every day smoker Alcohol intake: current Alcohol intake frequency: holidays/special occasions only Physical Exam Const: COMMON NORMALS: no acute distress, patient oriented x3, no limitations, alert and well nourished Extremity: COMMON NORMALS: capillary refill normal, no joint enlargement, no clubbing, cyanosis or edema, no calf tenderness and no pedal edema GENERAL: Yes normal exam except as noted RIGHT LOWER EXTREMITY: Yes foot & digits OTHER: TTP overlying distal 5th metatarsal; mild edema; no erythema/warmth; NV intact Neuro: COMMON NORMALS: patient oriented x3 SENSORIUM/ORIENTATION: Yes alert Course Vital Signs: Vital signs: Vital Signs Pulse Rate 52 L 01/29/23 11:20 Respiratory Rate 16 01/29/23 11:20 Blood Pressure 145/103 01/29/23 11:20 Pulse Oximetry 98 01/29/23 11:20 Oxygen Delivery Me thod Room Air 01/29/23 11:20 MDM - Extremity Injury (Lower) Medical Decision Making Patient has non-displaced 5th metatarsal fracture. She will be placed in a darco surgical shoe and given crutches she can use as needed. Will set up with follow-up orthopedic/podiatry appointment. Lab Data Radiology Impressions Foot X-Ray 01/29/23 11:26 IMPRESSION: Acute nondisplaced transverse fracture distal shaft 5th metatarsal. Discharge Plan Discharge Patient Disposition: Home Clinical Impression: Fracture of fifth metatarsal bone Qualifiers: Encounter type: initial encounter Fracture type: closed Fracture alignment: nondisplaced Laterality: right Qualified Code(s): S92.354A - Nondisplaced fracture of fifth metatarsal bone, right foot, initial encounter for closed fracture Condition: Stable Prescriptions: No Action venlafaxine 75 mg capsule,extended release 24hr 75 mg PO DAILY 30 Days Qty: 30 1RF trazodone 50 mg Tablet 50 mg PO BEDTIME PRN (Reason: Sleep) 30 Days Qty: 30 1RF hydroxyzine pamoate 25 mg Capsule 50 mg PO Q6H PRN (Reason: Anxiety) 30 Days Qty: 120 1RF albuterol sulfate 90 mcg/actuation HFA aerosol inhaler 2 inh INHALATION Q4H PRN (Reason: shortness of breath or wheezing) Qty: 18 0RF amoxicillin-pot clavulanate 875-125 mg tablet 1 tab PO BID Qty: 14 0RF fluconazole 150 mg tablet See Rx Instructions .ROUTE .COMPLEX Qty: 2 0RF Rx Instructions: take one tab today, then take the second tab 72hrs later chlordiazepoxide HCl 10 mg capsule 10 mg PO Q8H PRN (Reason: withdrawal symptoms) Qty: 20 0RF Discharge Orders: Discharge ED (Routine); Ordered 01/29/23 Ordered By: Carisa Dudley Referrals: Shima Tavarez CHILDHOOD DEVELOPMENT TEACHER [Primary Care Provider] - Patient Instructions: Foot Fracture in Adults (ED) Coding Level of Care Code ED Senior Abap Developer for Chg Fwd
--- NOTE | 2023-01-29 11:26 | XRR_ITS ---
PROCEDURE INFORMATION: Exam: XR Right Foot Exam date and time: 01/29/2023 11:46 AM Age: 32 years old Clinical indication: Pain; Foot; Right; Additional info: Lateral pain/swelling TECHNIQUE: Imaging protocol: Radiologic exam of the right foot. Views: 3 or more views. COMPARISON: No relevant prior studies available. FINDINGS: Bones/joints: There is subtle contour abnormality involving the distal aspect of the 5th metatarsal near the base of the metatarsal head secondary to nondisplaced transverse fracture that is likely acute. Remaining osseous structures are intact. There is a moderate-sized plantar spur arising from the calcaneus. A Soft tissues: Normal. XR/XR foot RT min 3V* [id number] IMPRESSION: Acute nondisplaced transverse fracture distal shaft 5th metatarsal.
[2023-01-29 12:45] VITALS: BP 145/103; PULSE 52; RESP 16; O2SAT 98
--- NOTE | 2023-01-30 09:59 | PC.SOCIAL ---
Addendum entered by Cecelia Cardenas 02/08/23 15:31: pharmacy district manager received the following message from the ortho clinic regarding follow up appointment: attempt made to contact patient on phone number below - left vm and will mail letter to call our clinic to schedule w/dr kelly for this Original Note: Ortho Referral Referral to ortho at this time. Clinic to contact patient with appt date/time.
== END 2023-01-29 12:47 | disposition home or self-care (01) ==
PROVIDERS: Emergency Provider Physician Assistant; PCP Nurse Practitioner Family
DX: S92.354A Nondisplaced fracture of fifth metatarsal bone, right foot, initial encounter for closed fracture (principal); F17.210 Nicotine dependence, cigarettes, uncomplicated; X58.XXXA Exposure to other specified factors, initial encounter
CPT/HCPCS: 73630; 99283

== ENCOUNTER 2023-02-05 23:43 | Emergency (ER) | payer BC, MEDICAID, SELFPAY ==
[2023-02-05 23:44] VITALS: BMI 45.4
[2023-02-05 23:47] VITALS: BP 136/85; PULSE 68; RESP 16; TEMP 37.2; O2SAT 98
--- NOTE | 2023-02-05 23:56 | XRR_ITS ---
PROCEDURE INFORMATION: Exam: XR Chest Exam date and time: 02/06/2023 12:56 AM Age: 32 years old Clinical indication: Other: Drug overdose; Additional info: Od TECHNIQUE: Imaging protocol: Radiologic exam of the chest. Views: 1 view. COMPARISON: CR XR chest 1V portable [id number] 11/21/2022 8:50 AM FINDINGS: Lungs: Unremarkable. No consolidation. Pleural spaces: Unremarkable. No pleural effusion. No pneumothorax. Heart/Mediastinum: Unremarkable. No cardiomegaly. Bones/joints: No acute abnormality. XR/XR chest 1V portable [id number] IMPRESSION: No acute findings.
[2023-02-06] MEDS: sodium chloride 0.9% 1,000 ML 999 ML IV (00:05)
[2023-02-06 00:21] LABS: Add Urine Microscopic? NO; Charge for UA Resulting for Rev
[2023-02-06 00:23] LABS: Bilirubin Urine Neg (Negative); Blood Urine Neg (Negative); Glucose Urine UA Norm (Normal); HCG Qualitative Urine. Negative (Negative); Ketones Urine Negative (Negative); Leukocyte Esterase Urine Negative (Negative); Nitrate Urine Negative (Negative); Protein Urine Neg (Negative); Specific Gravity, Urine 1.005 (1.005-1.030); Urine Appearance Clear (CLEAR); Urine Color Yellow (Yellow); Urobilinogen Urine Norm (Negative); pH Urine 7 (5-7)
[2023-02-06 00:27] LABS: Basophils # 0.1 10^3/uL (0.0-0.1); Basophils % 1.5 %; Eosinophils # 0.4 10^3/uL (0.0-0.8); Eosinophils % 6.2 %; Hematocrit 46.3 % (37.0-47.0); Hemoglobin 15.1 g/dL (11.5-15.3); Lymphocytes # 2.8 10^3/uL (0.8-4.8); Mean Corpuscular HGB Conc 32.6 g/dL (30.0-36.0); Mean Corpuscular Hemoglobin 31.9 pg (28.0-34.0); Mean Corpuscular Volume 97.7 fl (81-99); Mean Platelet Volume 10.3 fL (7.4-10.4); Monocytes # 0.4 10^3/uL (0.2-0.9); Monocytes % 6.5 %; Neutrophils % 43.1 %; Nucleated Red Blood Cells % 0 %; Platelet Count 257 10^3/cmm (130-400); Red Blood Count 4.74 10^6/uL (4.1-5.3); Red Cell Distribution Width 12.6 % (12.1-15.1); White Blood Count 6.7 10^3/uL (4.0-10.0)
[2023-02-06 00:32] LABS: Amphetamines Screen Urine Negative (Negative); Barbiturates Screen Urine Negative (Negative); Benzodiazepines Screen Urine Negative (Negative); Cocaine Screen Urine Negative (Negative); Opiate Screen Urine Negative (Negative); PCP Screen Urine Negative (Negative); THC Screen Urine Negative (Negative)
[2023-02-06 00:40] LABS: Alanine Aminotransferase 131 U/L (0-33); Alcohol Level 237 mg/dL (0-10); Alkaline Phosphatase 115 U/L (35-105); Anion Gap 18.7 (5-19); Aspartate Amino Transferase 106 U/L (0-32); Blood Urea Nitrogen 4 mg/dL (6-20); Calcium 8.8 mg/dL (8.5-10.5); Carbon Dioxide 23 mmol/L (22-29); Chloride 102 mmol/L (98-107); Glomerular Filtration Rate 72.6 mL/min (90-130); Glucose 95 mg/dL (65-115); Osmolality Calculated 287 mOsm/kg (285-295); Potassium 3.7 mmol/L (3.5-5.1); Sodium 140 mmol/L (136-145); Thyroid Stimulating Hormone 2.78 uIU/mL (0.27-4.20); Total Bilirubin 0.2 mg/dL (0.15-1.2)
[2023-02-06 00:58] VITALS: BP 144/91; PULSE 77; RESP 14; O2SAT 99
--- NOTE | 2023-02-06 00:58 | ED_ITS ---
HPI - Overdose General: Chief Complaint: Overdose Stated Complaint: Overdose Time Seen by Provider: 02/05/23 23:44 Source: patient and EMS History of Present Illness: 32-year-old female who evidently took up up to 100 mg of chlordiazepoxide at home. Her sister called the ambulance. Apparently she has been drinking alcohol most of the day as well. She did this with suicidal intent. Medically, she does appear to be healthy otherwise, save alcohol abuse. MD complaint: intentional overdose Onset (ago): hour(s) Timing confirmed by: family member Intent: unwilling to say Associated symptoms: depression Review of Systems Const: Denies: fever(s) ENMT: Denies: throat pain Card: Denies: chest pain Resp: Denies: dyspnea GI: Denies: vomiting Psych: Reports: anxiety and depression PFS ED PFSH: Medical History Asthma Biliary dyskinesia Depression Psychiatric care Surgical History History of laparoscopic cholecystectomy History of tonsillectomy and adenoidectomy Hx of colonoscopy AGE 18 No significant past surgical history Social History Smoking and tobacco status: current every day smoker Alcohol intake: current Alcohol intake frequency: holidays/special occasions only Physical Exam Const: GENERAL APPEARANCE: cooperative and lethargic; not ill appearing and not frail appearing ORIENTATION/CONSCIOUSNESS: Yes oriented to person, Yes oriented to place, Yes oriented to time and Yes lethargic HENMT: COMMON NORMALS: normocephalic, atraumatic and Normal external nose present HEAD & SCALP: normocephalic and atraumatic FACE & SINUS: normal facial exam and face symmetric NOSE: Normal external nose present Eye: COMMON NORMALS: Equal, round and reactive pupils present and EOMs intact bilaterally PUPIL: Yes Equal, round and reactive pupils present Neck/C-Spine: GENERAL: Yes trachea midline Chest: CHEST: Yes Symmetrical chest wall rise Resp: COMMON NORMALS: normal respiratory effort, No retractions, No use of accessory muscles and clear to auscultation bilaterally AUSCULTATION: clear to auscultation bilaterally Cardio: COMMON NORMALS: regular rate and regular rhythm RATE: regular rate RHYTHM: regular rhythm GI: COMMON NORMALS: Normal to inspection, nondistended, normoactive bowel sounds present Extremity: COMMON NORMALS: no pedal edema Neuro: MARK COMA SCALE: document GCS findings Mark coma scale eye opening: To sound Mark coma scale verbal response: Orientated Mark coma scale motor response: Obey commands [place] coma scale total score: 14 SENSORIUM/ORIENTATION: Yes oriented to person, Yes oriented to place, Yes oriented to time and Yes lethargic SENSORY EXAM: Yes extremities (intact) Psych: COMMON NORMALS: speech normal SPEECH: Yes normal speech Skin: COMMON NORMALS: no rashes or lesions noted GENERAL SKIN EXAM: no rashes or lesions noted Course Vital Signs: Vital signs: Vital Signs Temperature 98.9 F 02/05/23 23:47 Pulse Rate 70 02/06/23 02:28 Respiratory Rate 18 02/06/23 02:28 Blood Pressure 120/74 02/06/23 02:28 Pulse Oximetry 99 02/06/23 00:58 Oxygen Delivery Me thod Room Air 02/06/23 00:58 MDM - Overdose Medical Decision Making Patient is now waking up. She is set up, eaten, drank, ambulated in the room. Her vitals are normal. CBC is normal. BMP is normal. She has mild elevation liver enzymes. Her alcohol level is 237. Urine drug screen is negative. She is much more alert. Spoke with psychiatry. Will admit to the [facility] in an hour or so. Lab Data 02/05/23 23:55 02/05/23 23:55 Radiology Impressions Chest X-Ray 02/05/23 23:56 IMPRESSION: No acute findings. Laboratory Results WBC 6.7 10^3/uL (4.0-10.0) 02/05/23 23:55 RBC 4.74 10^6/uL (4.1-5.3) 02/05/23 23:55 Hgb 15.1 g/dL (11.5-15.3) 02/05/23 23:55 Hct 46.3 % (37.0-47.0) 02/05/23 23:55 MCV 97.7 fl (81-99) 02/05/23 23:55 MCH 31.9 pg (28.0-34.0) 02/05/23 23:55 MCHC 32.6 g/dL (30.0-36.0) 02/05/23 23:55 RDW 12.6 % (12.1-15.1) 02/05/23 23:55 Plt Count 257 10^3/cmm (130-400) 02/05/23 23:55 MPV 10.3 fL (7.4-10.4) 02/05/23 23:55 Neut % (Auto) 43.1 % 02/05/23 23:55 Lymph % (Auto) 42.0 % 02/05/23 23:55 [place] % (Auto) 6.5 % 02/05/23 23:55 Eos % (Auto) 6.2 % 02/05/23 23:55 Baso % (Auto) 1.5 % 02/05/23 23:55 Neut # (Auto) 2.90 10^3/uL (1.8-7.7) 02/05/23 23:55 Lymph # (Auto) 2.8 10^3/uL (0.8-4.8) 02/05/23 23:55 [place] # (Auto) 0.4 10^3/uL (0.2-0.9) 02/05/23 23:55 Eos # (Auto) 0.4 10^3/uL (0.0-0.8) 02/05/23 23:55 Baso # (Auto) 0.1 10^3/uL (0.0-0.1) 02/05/23 23:55 Nucleated RBC % (auto) 0 % 02/05/23 23: Nucleated RBCs # 0.0 /100WBC 02/05/23 23:55 Sodium 140 mmol/L (136-145) 02/05/23 23:55 Potassium 3.7 mmol/L (3.5-5.1) 02/05/23 23:55 Chloride 102 mmol/L (98-107) 02/05/23 23:55 Carbon Dioxide 23 mmol/L (22-29) 02/05/23 23:55 Anion Gap 18.7 (5-19) 02/05/23 23:55 BUN 4 mg/dL (6-20) L 02/05/23 23:55 Creatinine 0.9 mg/dL (0.5-0.9) 02/05/23 23:55 GFR Calculation 72.6 mL/min (90-130) L 02/05/23 23:55 Glucose 95 mg/dL (65-115) 02/05/23 23:55 Calculated Osmolality 287 mOsm/kg (285-295) 02/05/23 23:55 Calcium 8.8 mg/dL (8.5-10.5) 02/05/23 23:55 Total Bilirubin 0.2 mg/dL (0.15-1.2) 02/05/23 23:55 AST 106 U/L (0-32) H 02/05/23 23:55 ALT 131 U/L (0-33) H 02/05/23 23:55 Alkaline Phosphatase 115 U/L (35-105) H 02/05/23 23:55 Total Protein 7.0 g/dL (6.6-8.7) 02/05/23 23:55 Albumin 4.0 g/dL (3.5-5.2) 02/05/23 23:55 Globulin 3.0 g/dL (1.3-4.6) 02/05/23 23:55 TSH 2.78 uIU/mL (0.27-4.20) 02/05/23 23:55 HCG, Qual Negative (Negative) 02/05/23 00:13 Urine Color Yellow (Yellow) 02/05/23 00:13 Urine Appearance Clear (CLEAR) 02/05/23 00:13 Urine pH 7 (5-7) 02/05/23 00:13 Ur Specific [place] 1.005 (1.005-1.030) 02/05/23 00:13 Urine Protein Neg (Negative) 02/05/23 00:13 Urine Glucose (UA) Norm (Normal) 02/05/23 00:13 Urine Ketones Negative (Negative) 02/05/23 00:13 Urine Blood Neg (Negative) 02/05/23 00:13 Urine Nitrate Negative (Negative) 02/05/23 00:13 Urine Bilirubin Neg (Negative) 02/05/23 00:13 Urine Urobilinogen Norm mg/dL (Negative) 02/05/23 00:13 Ur Leukocyte Esterase Negative (Negative) 02/05/23 00:13 Salicylates < 0.3 mg/dL (3-10) L 02/05/23 23:55 Urine Opiates Screen Negative ng/mL (Negative) 02/05/23 00:13 Acetaminophen < 5.0 ug/mL (10-30) L 02/05/23 23:55 Ur Barbiturates Screen Negative ng/mL (Negative) 02/05/23 00:13 Ur Phencyclidine Scrn Negative ng/mL (Negative) 02/05/23 00:13 Ur Amphetamines Screen Negative ng/mL (Negative) 02/05/23 00:13 U Benzodiazepines Scrn Negative ng/mL (Negative) 02/05/23 00:13 Urine Cocaine Screen Negative ng/mL (Negative) 02/05/23 00:13 U Marijuana (THC) Screen Negative ng/mL (Negative) 02/05/23 00:13 Ethyl Alcohol 237 mg/dL (0-10) H 02/05/23 23:55 Discharge Plan Discharge Patient Disposition: Home Clinical Impression: Drug overdose, Alcohol intoxication Condition: Stable Prescriptions: No Action venlafaxine 75 mg capsule,extended release 24hr 75 mg PO DAILY 30 Days Qty: 30 1RF trazodone 50 mg Tablet 50 mg PO BEDTIME PRN (Reason: Sleep) 30 Days Qty: 30 1RF hydroxyzine pamoate 25 mg Capsule 50 mg PO Q6H PRN (Reason: Anxiety) 30 Days Qty: 120 1RF albuterol sulfate 90 mcg/actuation HFA aerosol inhaler 2 inh INHALATION Q4H PRN (Reason: shortness of breath or wheezing) Qty: 18 0RF amoxicillin-pot clavulanate 875-125 mg tablet 1 tab PO BID Qty: 14 0RF fluconazole 150 mg tablet See Rx Instructions .ROUTE .COMPLEX Qty: 2 0RF Rx Instructions: take one tab today, then take the second tab 72hrs later chlordiazepoxide HCl 10 mg capsule 10 mg PO Q8H PRN (Reason: withdrawal symptoms) Qty: 20 0RF Discharge Orders: Discharge ED (Routine); Ordered 02/06/23 Ordered By: Ruddy De La Cruz Referrals: Shima Tavarez FNP [Primary Care Provider] - 1-3 days Patient Instructions: Opioid Safety, Pain Management Activity Restrictions/Additional Instructions: Return for any thoughts or wishes to harm yourself or anyone else. Your family must stay with you at least for the next 48 hours and help distribute your medicine. Do not use alcohol. Call your therapist clinic later this morning for an emergency appointment. Coding Level of Care Code ED Automobile Brakes Bonder for Ko Cabrera
[2023-02-06 01:07] LABS: Acetaminophen < 5.0 ug/mL (10-30); Salicylate < 0.3 mg/dL (3-10)
--- NOTE | 2023-02-06 02:00 | PC.NURSE ---
Family was contacted and placed on speaker phone with patient and this nurse. Family was informed that if they removed all medication from patient to prevent any future overdose, patient would potentially be allowed to go home. Family stated to nurse that they would take away all of patient's medications. Dr De La Cruz was informed of the conversation that took place and family's statement regarding patient's access to medication.
[2023-02-06 02:27] VITALS: BP 120/84; PULSE 86; RESP 18
[2023-02-06 02:28] VITALS: BP 120/74; PULSE 70; RESP 18
== END 2023-02-06 02:38 | disposition home or self-care (01) ==
PROVIDERS: Emergency Provider Emergency Medicine; PCP Nurse Practitioner Family
DX: T42.4X2A Poisoning by benzodiazepines, intentional self-harm, initial encounter (principal); Y92.009 Unspecified place in unspecified non-institutional (private) residence as the place of occurrence of the external cause; R74.8 Abnormal levels of other serum enzymes; F10.920 Alcohol use, unspecified with intoxication, uncomplicated; Y90.7 Blood alcohol level of 200-239 mg/100 ml
CPT/HCPCS: 71045; 80053; 80306; 80307; 81003; 81025; 84443; 85025; 96360; 96361; 99285; J7030

== ENCOUNTER → 2023-03-02 13:00 | Outpatient (BNVA) | payer BC, SELFPAY | PROVIDERS: PCP Nurse Practitioner Family; Visit Provider Nurse Practitioner Psychiatric/Mental Health | DX: Z79.899 Other long term (current) drug therapy (principal) | CPT/HCPCS: 80053; 80061; 80307; 83036 ==

== ENCOUNTER 2023-03-30 07:52 | Emergency (ER) | payer BC, MEDICAID, SELFPAY ==
[2023-03-30 08:03] VITALS: BP 148/98; PULSE 67; RESP 15; O2SAT 96
--- NOTE | 2023-03-30 08:22 | XR_ITS ---
WS: [id number] Exam: XR chest 1V portable [id number] Date/Time of Exam: 03/30/2023 8:30 AM Reason For Exam: dyspnea/cough Comparison 02/06/2023. Findings: The lungs are clear and fully expanded. Costophrenic angles are sharp. No infiltrates. Bronchovascula r relief appears normal. Cardiac silhouette is unremarkable. Bony elements are intact. IMPRESSION: Unremarkable chest radiograph.
[2023-03-30] MEDS: ondansetron 2 mg/ML SDV 2 mL 4 MG IVP (08:47)
[2023-03-30] MEDS: sodium chloride 0.9% 1,000 ML 999 ML IV (08:47)
[2023-03-30 08:56] LABS: Basophils # 0.1 10^3/uL (0.0-0.1); Basophils % 1.1 %; Eosinophils # 0.4 10^3/uL (0.0-0.8); Eosinophils % 6.6 %; Hematocrit 43.5 % (36-47); Lymphocytes # 1.8 10^3/uL (0.8-4.8); Lymphocytes % 27.3 %; Mean Corpuscular HGB Conc 32.9 g/dL (30-55); Mean Corpuscular Hemoglobin 31.2 pg (27-33); Mean Platelet Volume 9.9 fL (7.4-10.4); Monocytes # 0.5 10^3/uL (0.2-0.9); Monocytes % 7.6 %; Neutrophils # 3.72 10^3/uL (1.8-7.7); Neutrophils % 56.8 %; Nucleated Red Blood Cells % 0 %; Platelet Count 289 10^3/cmm (157-399); Red Blood Count 4.58 10^6/uL (3.85-5.65); Red Cell Distribution Width 12.3 % (12.1-15.1); White Blood Count 6.55 10^3/uL (3.29-11.43)
[2023-03-30 09:03] VITALS: BP 144/99; O2SAT 93
[2023-03-30 09:14] LABS: Alanine Aminotransferase 82 U/L (0-33); Alkaline Phosphatase 76 U/L (35-105); Anion Gap 15.2 (5-19); Aspartate Amino Transferase 72 U/L (0-32); Blood Urea Nitrogen 10 mg/dL (6-20); Calcium 8.7 mg/dL (8.5-10.5); Carbon Dioxide 23 mmol/L (22-29); Chloride 102 mmol/L (98-107); Globulin 2.8 g/dL (1.3-4.6); Glucose 92 mg/dL (65-115); Osmolality Calculated 281 mOsm/kg (285-295); Potassium 4.2 mmol/L (3.5-5.1); Sodium 136 mmol/L (136-145); Total Bilirubin 0.5 mg/dL (0.15-1.2); Total Protein 6.8 g/dL (6.6-8.7)
[2023-03-30 09:19] LABS: Add Urine Microscopic? NO; Charge for UA Resulting for Rev
--- NOTE | 2023-03-30 09:25 | W.ED.NAVMDI ---
HPI - Nausea/Vomiting/Diarrhea General: Chief complaint: Nausea/Vomiting/Diarrhea Stated complaint: abd pain Time Seen by Provider: 03/30/23 07:58 Source: patient Mode of arrival: ambulatory History of Present Illness: 32-year-old female who presents emergency room complaining of nausea vomiting. She is currently on amoxicillin metronidazole and Levaquin. Reviewing her chart and talking to her the amoxicillin is from a dentist for a tooth infection the metronidazole was prescribed by THREAD MILLING MACHINE SET UP OPERATOR for bacterial vaginosis looks like the Levaquin was given as empiric therapy for possible PID although the GC and Chlamydia results on the chart are negative. MD elicited complaint: nausea and vomiting Onset (ago): day(s) Description of vomiting: food contents and bilious Associated nausea: Yes Associated abdominal pain: Yes Location of pain: Epigastric Severity: moderate Quality: cramping Exacerbating factors: none Relieving factors: none Associated symtoms: Reports dysuria and nausea; Denies anxiety, bloating, change in vision, chest pain, cough, diaphoresis, decreased urine output, dizziness, fatigue, fevers/chills, headache(s), anorexia, malaise, myalgias, numbness, palpitations, rash, short of breath, syncope, tenesmus or weakness Review of Systems Const: Denies: fever(s), chills, fatigue, malaise or diaphoresis Eyes: Denies: change in vision Card: Denies: chest pain, palpitations or syncope Resp: Denies: dyspnea, productive cough or non-productive cough GI: Reports: abdominal pain, nausea, vomiting and GI cramping; Denies: bloating : Reports: dysuria; Denies: flank pain, difficulty voiding, urinary frequency or urinary urgency Skin/Breast: Denies: rash or pruritus Neuro: Denies: headache(s) or dizziness Psych: Denies: anxiety PFSH ED PFSH: Medical History Alcohol use disorder, severe, dependence Asthma Bipolar II disorder, most recent episode hypomanic moderate severity with mixed features Chronic post-traumatic stress disorder Cigarette nicotine dependence Marijuana use, episodic Psychiatric care Surgical History History of laparoscopic cholecystectomy History of tonsillectomy and adenoidectomy Hx of colonoscopy AGE 18 No significant past surgical history Social History Smoking and tobacco status: current every day smoker Alcohol intake: current Alcohol intake frequency: holidays/special occasions only Physical Exam Const: GENERAL APPEARANCE: cooperative and comfortable ORIENTATION/CONSCIOUSNESS: Yes awake, Yes oriented to person, Yes oriented to place and Yes oriented to time HENMT: COMMON NORMALS: normocephalic, atraumatic and hearing grossly normal bilaterally HEAD & SCALP: normocephalic and atraumatic Resp: COMMON NORMALS: normal respiratory effort, No retractions, No use of accessory muscles and clear to auscultation bilaterally AUSCULTATION: clear to auscultation bilaterally Cardio: COMMON NORMALS: regular rate, regular rhythm and No murmurs present (Cardio) RATE: regular rate RHYTHM: regular rhythm GI: COMMON NORMALS: Soft to palpation and No hepatosplenomegaly present AUSCULTATION: Yes normoactive bowel sounds PALPATION: Yes Soft to palpation, No Tenderness to palpation present (GI), No Guarding due to palpation present (GI) and Yes No hepatosplenomegaly present Extremity: COMMON NORMALS: normal to inspection, capillary refill normal, no clubbing, cyanosis or edema, no calf tenderness and no pedal edema Neuro: SENSORIUM/ORIENTATION: Yes oriented to person, Yes oriented to place and Yes oriented to time Skin: COMMON NORMALS: no rashes or lesions noted GENERAL SKIN EXAM: no rashes or lesions noted Course Vital Signs: Vital signs: Vital Signs Pulse Rate 67 03/30/23 08:03 Respiratory Rate 15 03/30/23 08:03 Blood Pressure 144/99 03/30/23 09:03 Pulse Oximetry 93 03/30/23 09:03 Oxygen Delivery Me thod Room Air 03/30/23 09:03 MDM - Nausea/Vomiting/Diarrhea Medical Decision Making Patient on Levaquin metronidazole and amoxicillin. Metronidazole for bacterial vaginosis amoxicillin for tooth infection Levaquin reading to the chart appears to have been prophylactic for pelvic infection GC and Chlamydia were negative. We will have her stop Levaquin complete the other 2 she is feeling better after fluids use antiemetics as needed follow-up as needed return if worsens. Medical Records I reviewed the patient's medical records. Lab Data I reviewed the patient's lab results. 03/30/23 08:45 03/30/23 08:45 Laboratory Results WBC 6.55 10^3/uL (3.29-11.43) 03/30/23 08:45 RBC 4.58 10^6/uL (3.85-5.65) 03/30/23 08:45 Hgb 14.30 g/dL (11.27-16.99) 03/30/23 08:45 Hct 43.5 % (36-47) 03/30/23 08:45 MCV 95.0 fl (85-98) 03/30/23 08:45 MCH 31.2 pg (27-33) 03/30/23 08:45 MCHC 32.9 g/dL (30-55) 03/30/23 08:45 RDW 12.3 % (12.1-15.1) 03/30/23 08:45 Plt Count 289 10^3/cmm (157-399) 03/30/23 08:45 MPV 9.9 fL (7.4-10.4) 03/30/23 08:45 Neut % (Auto) 56.8 % 03/30/23 08:45 Lymph % (Auto) 27.3 % 03/30/23 08:45 [place] % (Auto) 7.6 % 03/30/23 08:45 Eos % (Auto) 6.6 % 03/30/23 08:45 Baso % (Auto) 1.1 % 03/30/23 08:45 Neut # (Auto) 3.72 10^3/uL (1.8-7.7) 03/30/23 08:45 Lymph # (Auto) 1.8 10^3/uL (0.8-4.8) 03/30/23 08:45 [place] # (Auto) 0.5 10^3/uL (0.2-0.9) 03/30/23 08:45 Eos # (Auto) 0.4 10^3/uL (0.0-0.8) 03/30/23 08:45 Baso # (Auto) 0.1 10^3/uL (0.0-0.1) 03/30/23 08:45 Nucleated RBC % (auto) 0 % 03/30/23 08:45 Nucleated RBCs # 0.0 /100WBC 03/30/23 08:45 Sodium 136 mmol/L (136-145) 03/30/23 08:45 Potassium 4.2 mmol/L (3.5-5.1) 03/30/23 08:45 Chloride 102 mmol/L (98-107) 03/30/23 08:45 Carbon Dioxide 23 mmol/L (22-29) 03/30/23 08:45 Anion Gap 15.2 (5-19) 03/30/23 08:45 BUN 10 mg/dL (6-20) 03/30/23 08:45 Creatinine 0.7 mg/dL (0.5-0.9) 03/30/23 08:45 GFR Calculation 97.0 mL/min (90-130) 03/30/23 08:45 Glucose 92 mg/dL (65-115) 03/30/23 08:45 Calculated Osmolality 281 mOsm/kg (285-295) L 03/30/23 08:45 Calcium 8.7 mg/dL (8.5-10.5) 03/30/23 08:45 Total Bilirubin 0.5 mg/dL (0.15-1.2) 03/30/23 08:45 AST 72 U/L (0-32) H 03/30/23 08:45 ALT 82 U/L (0-33) H 03/30/23 08:45 Alkaline Phosphatase 76 U/L (35-105) 03/30/23 08:45 Total Protein 6.8 g/dL (6.6-8.7) 03/30/23 08:45 Albumin 4.0 g/dL (3.5-5.2) 03/30/23 08:45 Globulin 2.8 g/dL (1.3-4.6) 03/30/23 08:45 Urine Color Yellow (Yellow) 03/30/23 09:14 Urine Appearance Clear (CLEAR) 03/30/23 09:14 Urine pH 6.5 (5-7) 03/30/23 09:14 Ur Specific [place] 1.010 (1.005-1.030) 03/30/23 09:14 Urine Protein Neg (Negative) 03/30/23 09:14 Urine Glucose (UA) Norm (Normal) 03/30/23 09:14 Urine Ketones Negative (Negative) 03/30/23 09:14 Urine Blood Neg (Negative) 03/30/23 09:14 Urine Nitrate Negative (Negative) 03/30/23 09:14 Urine Bilirubin Neg (Negative) 03/30/23 09:14 Urine Urobilinogen Norm mg/dL (Negative) 03/30/23 09:14 Ur Leukocyte Esterase Negative (Negative) 03/30/23 09:14 Discharge Plan Discharge Patient Disposition: Home Clinical Impression: Drug-induced nausea and vomiting Condition: Stable Prescriptions: Discontinued levofloxacin 500 mg tablet 500 mg PO DAILY 7 Days Qty: 7 0RF No Action naltrexone 50 mg tablet 50 mg PO .morning Qty: 30 3RF Rx Instructions: Take one tablet every morning metronidazole 500 mg tablet 500 mg PO BID Qty: 14 0RF albuterol sulfate 90 mcg/actuation HFA aerosol inhaler 2 inh INHALATION Q4H PRN (Reason: shortness of breath or wheezing) Qty: 18 0RF Amoxil 500 mg Capsule 500 mg PO TID olanzapine 5 mg tablet 5 mg PO BEDTIME Discharge Orders: Discharge ED (Routine); Ordered 03/30/23 Ordered By: Josias Guerra Referrals: Shima Tavarez, CRANIOLOGIST [Primary Care Provider] - Discharge Diet: Usual diet Discharge Activity: Increase activity as tolerated Patient Instructions: Opioid Safety, Pain Management Activity Restrictions/Additional Instructions: You are seen today for persistent nausea and vomiting. Recommend he stop the Levaquin. Take metronidazole after eating food. Complete the amoxicillin as previously prescribed. If you have any worsening or change symptoms recheck. Stand Alone Forms: Work/School Release Coding Level of Care Code ED Payment Collector for Ko Cabrera
[2023-03-30 09:26] LABS: Bilirubin Urine Neg (Negative); Blood Urine Neg (Negative); Glucose Urine UA Norm (Normal); Ketones Urine Negative (Negative); Leukocyte Esterase Urine Negative (Negative); Nitrate Urine Negative (Negative); Protein Urine Neg (Negative); Urine Appearance Clear (CLEAR); Urine Color Yellow (Yellow); Urobilinogen Urine Norm (Negative); pH Urine 6.5 (5-7)
== END 2023-03-30 10:38 | disposition home or self-care (01) ==
PROVIDERS: Emergency Provider Family Medicine; PCP Nurse Practitioner Family
DX: R11.2 Nausea with vomiting, unspecified (principal); T36.8X5A Adverse effect of other systemic antibiotics, initial encounter; F17.210 Nicotine dependence, cigarettes, uncomplicated
CPT/HCPCS: 71045; 80053; 81003; 85025; 96374; 99284; J2405; J7030

== ENCOUNTER 2023-04-04 09:37 | Emergency (ER) | payer BC, MEDICAID, SELFPAY ==
[2023-04-04 09:38] VITALS: BMI 42.0
[2023-04-04 09:41] VITALS: BP 151/105; PULSE 62; RESP 16; TEMP 36.7; O2SAT 98
--- NOTE | 2023-04-04 09:56 | XRR_ITS ---
PROCEDURE INFORMATION: Exam: XR Left Ribs with PA Chest Exam date and time: 04/04/2023 10:19 AM Age: 32 years old Clinical indication: Pain and injury or trauma; Other: Stretching; Rib area, left side; Sprain or strain; Chest wall pain; Injury date: 04/04/23; Additional info: Pain/injury TECHNIQUE: Imaging protocol: Radiologic exam of the left ribs with PA chest. Views: 3 views COMPARISON: CR XR chest 1V portable [id number] 03/30/2023 8:41 AM FINDINGS: Lungs: Unremarkable. No consolidation. Pleural spaces: Unremarkable. No pleural effusion. No pneumothorax. Heart/Mediastinum: Unremarkable. No cardiomegaly. Bones/joints: Unremarkable. XR/XR ribs LT mn 3V w CXR1V [id number] IMPRESSION: No acute findings.
--- NOTE | 2023-04-04 09:57 | ED_ITS ---
HPI - Back Pain/Injury General: Chief Complaint: Abdominal Pain Stated Complaint: L Rib Pain Time Seen by Provider: 04/04/23 09:48 Source: patient Mode of arrival: ambulatory Limitations: no limitations History of Present Illness: Patient is a 32 yo female here for complaints of left posterior rib/back pain that she sustained just earlier today while stretching. She states several years ago she popped a rib out of place that felt similar. She states pain is worse with range of motion of the back and her left shoulder. She denies shortness of breath. Does have pain with deep inhalation. MD elicited complaint: back injury Onset (ago): hour(s) Timing: constant Severity: severe Similar Symptoms Previously: Yes Location: left lower back Radiation: none Exacerbating factors: movement Relieving factors: none Associated symptoms: Reports no associated symptoms; Deny abdominal pain, dysuria, hematuria or syncope Work related injury: No Review of Systems Card: Denies: chest pain, palpitations, irregular heart rhythm, lightheadedness, syncope or pre-syncope Resp: Reports: pain on inspiration; Denies: dyspnea, productive cough, non-productive cough, wheezing, hemoptysis or chest congestion GI: Denies: abdominal pain : Denies: flank pain, dysuria or hematuria Musc: Reports: back pain; Denies: neck pain, extremity pain, extremity swelling, joint pain or joint swelling Neuro: Denies: headache(s), numbness in extremities, weakness in extremities or sensory changes PFS ED PFSH: Medical History Alcohol use disorder, severe, dependence Asthma Bipolar II disorder, most recent episode hypomanic moderate severity with mixed features Chronic post-traumatic stress disorder Cigarette nicotine dependence Marijuana use, episodic Psychiatric care Surgical History History of laparoscopic cholecystectomy History of tonsillectomy and adenoidectomy Hx of colonoscopy AGE 18 No significant past surgical history Social History Smoking and tobacco status: current every day smoker Alcohol intake: current Alcohol intake frequency: holidays/special occasions only Female Reproductive History: Date of last menstrual period: 03/21/23 Physical Exam Const: COMMON NORMALS: no acute distress, patient oriented x3, no limitations, alert and well nourished GENERAL APPEARANCE: cooperative NUTRITIONAL APPEARANCE: obese morbidly obese ORIENTATION/CONSCIOUSNESS: Yes awake, Yes oriented to person, Yes oriented to place and Yes oriented to time Neck/C-Spine: COMMON NORMALS: full ROM GENERAL: Yes normal visual inspection CERVICAL SPINE: No pain with cervical ROM, No Cervical spine tenderness, No step off deformity, No Paracervical muscle tenderness and No Paracervical spasm Chest: COMMONS NORMALS: normal inspection of the chest CHEST: Yes tenderness (TTP L posterior ribs; no crepitus; normal lung sounds) Resp: COMMON NORMALS: normal respiratory effort and clear to auscultation bilaterally AUSCULTATION: clear to auscultation bilaterally Cardio: COMMON NORMALS: regular rate and regular rhythm RATE: regular rate RHYTHM: regular rhythm GI: COMMON NORMALS: Normal to inspection, nondistended, normoactive bowel sounds present, Soft to palpation and non-tender PALPATION: Yes Soft to palpation : COMMON NORMALS: Yes no CVA tenderness BLADDER/KIDNEY EXAM: Yes no CVA tenderness Back/Pelvis: COMMON NORMALS: no CVA tenderness, thoracic and lumbar spine normal to inspection, no thoracic nor lumbar tenderness and thoraco-lumbar ROM normal THORACIC SPINE/UPPER BACK: Yes ROM limited, No thoracic spinal tenderness, Yes paraspinal muscle tenderness and No paraspinal muscle spasm BACK IMAGE (FEMALE): 1. TTP Extremity: COMMON NORMALS: normal to inspection GENERAL: Yes normal exam except as noted Neuro: COMMON NORMALS: patient oriented x3, moves all extremities, no focal motor deficits and no sensory deficits noted SENSORIUM/ORIENTATION: Yes alert, Yes oriented to person, Yes oriented to place and Yes oriented to time Skin: COMMON NORMALS: no rashes or lesions noted GENERAL SKIN EXAM: no rashes or lesions noted Course Vital Signs: Vital signs: Vital Signs Temperature 98.0 F 04/04/23 09:41 Pulse Rate 62 04/04/23 09:41 Respiratory Rate 16 04/04/23 09:41 Blood Pressure 151/105 04/04/23 09:41 Pulse Oximetry 98 04/04/23 09:41 Oxygen Delivery Me thod Room Air 04/04/23 09:41 MDM - Back Pain/Injury Medical Decision Making XRs negative. Will treat with muscle relaxers and have her start using OTC anti- inflammatory along with ice/heat. Discharge Plan Discharge Patient Disposition: Home Clinical Impression: Strain of thoracic back region Condition: Stable Prescriptions: New methocarbamol 500 mg tablet 1,000 mg PO Q8H Qty: 30 0RF No Action metronidazole 500 mg tablet 500 mg PO BID Qty: 14 0RF albuterol sulfate 90 mcg/actuation HFA aerosol inhaler 2 inh INHALATION Q4H PRN (Reason: shortness of breath or wheezing) Qty: 18 0RF acetaminophen [Tylenol Ex Str Rapid Release] 500 mg Tablet 1,000 mg PO Q6H PRN (Reason: Pain) ibuprofen 200 mg Tablet 600 mg PO Q6H PRN (Reason: Pain) amoxicillin [Amoxil] 500 mg Capsule 500 mg PO TID olanzapine 5 mg tablet 5 mg PO BEDTIME Discharge Orders: Discharge ED (Routine); Ordered 04/04/23 Ordered By: Carisa Dudley Referrals: Shima Tavarez FNP [Primary Care Provider] - Patient Instructions: Thoracic Back Strain (ED) Activity Restrictions/Additional Instructions: As we discussed you may begin taking an [id number] anti-inflammatory. May use ice/heat to the affected area. We will provide you a prescription for muscle relaxers. You may follow-up with primary care in 1 to 2 weeks if symptoms do not seem to be improving. 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
[2023-04-04] MEDS: ketorolac 30 mg/mL INJ IVP (10:27)
[2023-04-04] MEDS: orphenadrine 30 mg/mL Inj 2 mL 60 MG IVP (10:28)
[2023-04-04] MEDS: dexamethasone 4 mg/mL INJ 8 MG IVP (10:28)
--- NOTE | 2023-04-04 10:35 | PC.PHAR ---
pt states she takes care of her own medications-pt states the dr has dced her naltrexone 50mg qam filled 03/17/23 30d/s pt states dr ocasio 2 weeks ago-pt states the dr also dced her effexor er 37.5mg daily filled 02/08/23 30d/s and abilify 2mg daily filled 02/08/23 30d/s-pt states the dr also dced her levaquin 500mg daily rx filled 02/26/23 7d/s pt states dr ocasio 3 days ago but states she is still taking metronidazole 500mg bid filled 03/23/23 7d/s-
== END 2023-04-04 10:54 | disposition home or self-care (01) ==
PROVIDERS: Emergency Provider Physician Assistant; PCP Nurse Practitioner Family
DX: S29.012A Strain of muscle and tendon of back wall of thorax, initial encounter (principal); F17.210 Nicotine dependence, cigarettes, uncomplicated; X50.9XXA Other and unspecified overexertion or strenuous movements or postures, initial encounter
CPT/HCPCS: 71101; 96374; 96375; 99284; J1100; J1885; J2360

== ENCOUNTER 2023-05-22 05:24 | Emergency (ER) | payer BC, MEDICAID, SELFPAY ==
[2023-05-22 05:32] VITALS: BP 156/93; PULSE 73; RESP 18; TEMP 36.7; O2SAT 98; BMI 42.0
--- NOTE | 2023-05-22 05:44 | W.ED.EYEPROB ---
HPI - Eye Problem General: Chief complaint: Eye Problems Stated complaint: Rt Eye Swollen Time Seen by Provider: 05/22/23 05:38 Source: patient Mode of arrival: ambulatory History of Present Illness: 32-year-old female presents emergency room complaining of swelling in the right eye that began overnight. Medial aspect of the lower eyelid is inflamed no purulent drainage. Patient reports is tender to touch Onset (ago): hour(s) Location: right eye Eye Symptoms: other (selling) Place: home Mechanism: none Associated symptoms: Denies cough, fever(s), headache(s), nausea, neck pain, numbness, rhinorrhea, short of breath, vomiting or weakness Review of Systems Const: Denies: fever(s) or chills GI: Denies: nausea or vomiting Musc: Denies: neck pain or back pain Skin/Breast: Denies: rash Neuro: Denies: headache(s) PFSH ED PFSH: Medical History Alcohol use disorder, severe, dependence Asthma Bipolar II disorder, most recent episode hypomanic moderate severity with mixed features Chronic post-traumatic stress disorder Cigarette nicotine dependence Marijuana use, episodic Psychiatric care Surgical History History of laparoscopic cholecystectomy History of tonsillectomy and adenoidectomy Hx of colonoscopy AGE 18 No significant past surgical history Social History Smoking and tobacco/nicotine status: current every day tobacco/nicotine user Alcohol intake: current Alcohol intake frequency: holidays/special occasions only Female Reproductive History: Date of last menstrual period: 05/08/23 Physical Exam Const: COMMON NORMALS: no acute distress GENERAL APPEARANCE: cooperative and comfortable ORIENTATION/CONSCIOUSNESS: Yes awake, Yes oriented to person, Yes oriented to place and Yes oriented to time HENMT: COMMON NORMALS: normocephalic, atraumatic and hearing grossly normal bilaterally HEAD & SCALP: normocephalic and atraumatic Eye: OTHER: Swelling of the medial aspect of the right lower eyelid appears to have involvement of the lacrimal duct. No purulent drainage minimal scleral irritation. Moving glands along the lower eyelid are swollen as well no crusting along the edge of the eyelid. Neuro: SENSORIUM/ORIENTATION: Yes oriented to person, Yes oriented to place and Yes oriented to time Skin: COMMON NORMALS: no rashes or lesions noted GENERAL SKIN EXAM: no rashes or lesions noted Course Vital Signs: Vital signs: Vital Signs Temperature 98.0 F 05/22/23 05:32 Pulse Rate 73 05/22/23 05:32 Respiratory Rate 18 05/22/23 05:32 Blood Pressure 156/93 05/22/23 05:32 Pulse Oximetry 98 05/22/23 05:32 Oxygen Delivery Me thod Room Air 05/22/23 05:32 MDM - Eye Problem Medical Decision Making Inflammation of the lower eyelid appears to involve the lacrimal duct as well started on cephalexin tobramycin drops is improving and EXTR follow-up with ophthalmology optometry. No radiology studies performed this visit Discharge Plan Discharge Patient Disposition: Home Clinical Impression: Infection of lacrimal duct, Blepharitis Condition: Stable Prescriptions: New tobramycin 0.3 % drops 2 drp ophthalmic (eye) Q4H Qty: 5 0RF Rx Instructions: 2 drops right eye every 4 hours while awake cephalexin 500 mg tablet 500 mg PO TID 7 Days Qty: 21 0RF No Action metronidazole 500 mg tablet 500 mg PO BID Qty: 14 0RF albuterol sulfate 90 mcg/actuation HFA aerosol inhaler 2 inh INHALATION Q4H PRN (Reason: shortness of breath or wheezing) Qty: 18 0RF Tylenol Ex Str Rapid Release 500 mg Tablet 1,000 mg PO Q6H PRN (Reason: Pain) ibuprofen 200 mg Tablet 600 mg PO Q6H PRN (Reason: Pain) methocarbamol 500 mg tablet 1,000 mg PO Q8H Qty: 30 0RF amoxicillin [Amoxil] 500 mg Capsule 500 mg PO TID olanzapine 5 mg tablet 5 mg PO BEDTIME Discharge Orders: Discharge ED (Routine); Ordered 05/22/23 Ordered By: Josias Guerra Referrals: Shima Tavarez FNP [Primary Care Provider] - Discharge Diet: Usual diet Discharge Activity: Resume usual activity Patient Instructions: Opioid Safety, Pain Management Activity Restrictions/Additional Instructions: You were seen today for infection of the lacrimal duct in the right lower eyelid.. Start on the oral he is antibiotics and antibiotic drops improving over the next 3 to 4 days follow-up with your customer engineering specialist or pipeline inspector. 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
[2023-05-22 06:11] VITALS: BP 156/93; PULSE 62; RESP 16; O2SAT 96
== END 2023-05-22 06:05 | disposition home or self-care (01) ==
PROVIDERS: Emergency Provider Family Medicine; PCP Nurse Practitioner Family
DX: H04.301 Unspecified dacryocystitis of right lacrimal passage (principal); H01.002 Unspecified blepharitis right lower eyelid; F17.210 Nicotine dependence, cigarettes, uncomplicated
CPT/HCPCS: 99283

== ENCOUNTER 2023-06-06 19:24 | Inpatient (IN) | payer BC, SELFPAY ==
[2023-06-06 19:29] VITALS: BP 152/111; PULSE 113; RESP 22; TEMP 36.6; O2SAT 96; BMI 41.1
--- NOTE | 2023-06-06 19:36 | ED.C_ITS ---
HPI - Psych General: Chief Complaint: Psychiatric Symptoms Stated Complaint: fall, mouth injury, SI Time Seen by Provider: 06/06/23 19:29 Source: patient Mode of arrival: ambulatory Limitations: no limitations History of Present Illness: 32-year-old female states that she has had a long history of psychiatric issues with depression and suicidality she states that she is just been feeling overwhelmed the last 1 to 2 weeks and having suicidal thoughts tonight. She has attempted suicide in the past she had been drinking tonight as well and states that she was coming down the stairs and then fell and did hit her mouth denies hitting her head denies any loss of consciousness denies any worsening proving factors. Associated symptoms: Reports depression and suicidal ideation Review of Systems Const: Denies: fever(s), chills, body aches or change in appetite Eyes: Denies: blurry vision or eye discomfort ENMT: Denies: throat pain or dental pain Card: Denies: chest pain Resp: Denies: dyspnea GI: Denies: abdominal pain, nausea, vomiting or diarrhea : Denies: dysuria Musc: Denies: neck pain or back pain Skin/Breast: Denies: rash Neuro: Denies: headache(s) Psych: Reports: depression and suicidal ideation PFS ED PFSH: Medical History Alcohol use disorder, severe, dependence Asthma Bipolar II disorder, most recent episode hypomanic moderate severity with mixed features Chronic post-traumatic stress disorder Cigarette nicotine dependence Marijuana use, episodic Psychiatric care Surgical History History of laparoscopic cholecystectomy History of tonsillectomy and adenoidectomy Hx of colonoscopy AGE 18 No significant past surgical history Social History Smoking and tobacco/nicotine status: current every day tobacco/nicotine user Alcohol intake: current Alcohol intake frequency: holidays/special occasions only Physical Exam Const: COMMON NORMALS: no acute distress, patient oriented x3 and healthy appearing HENMT: COMMON NORMALS: normocephalic and atraumatic HEAD & SCALP: normoc ephalic and atraumatic OTHER: Abrasion noted to the lower lip small less than 1 cm laceration to inner upper lip that is not through and through Neck/C-Spine: COMMON NORMALS: full ROM and supple Chest: COMMONS NORMALS: normal inspection of the chest and normal palpation of entire chest wall Resp: COMMON NORMALS: normal respiratory effort, No retractions, No use of accessory muscles and clear to auscultation bilaterally AUSCULTATION: clear to auscultation bilaterally Cardio: COMMON NORMALS: regular rate, regular rhythm and No murmurs present (Cardio) RATE: regular rate RHYTHM: regular rhythm GI: COMMON NORMALS: Normal to inspection, nondistended, normoactive bowel sounds present, Soft to palpation, non-tender and no masses PALPATION: Yes Soft to palpation Extremity: COMMON NORMALS: normal to inspection and full ROM Neuro: COMMON NORMALS: patient oriented x3, moves all extremities and no focal motor deficits Psych: COMMON NORMALS: mental status grossly normal, Normal thought process present and cooperative MOOD & AFFECT: Yes depressed mood THOUGHT PROCESS: Normal thought process present THOUGHT CONTENT: Yes Suicidality present Skin: COMMON NORMALS: no rashes or lesions noted and no wounds GENERAL SKIN EXAM: no rashes or lesions noted Course Vital Signs: Vital signs: Vital Signs Temperature 97.9 F 06/06/23 19:29 Pulse Rate 80 06/06/23 20:24 Respiratory Rate 16 06/06/23 20:24 Blood Pressure 124/80 06/06/23 20:24 Pulse Oximetry 96 06/06/23 20:24 Oxygen Delivery Me thod Room Air 06/06/23 20:24 [facility] - Psych Medical Decision Making Patient presents here with suicidal ideations patient placed under 96-hour hold and will admit to the psych unit. She did have a fall as a inner lip laceration that will heal well on its own does not need suture at this time she did not hit her head does not require Medical Records I reviewed the patient's medical records. Lab Data I reviewed the patient's lab results. 06/06/23 19:41 06/06/23 19:41 Laboratory Results WBC 9.49 10^3/uL (3.29-11.43) 06/06/23 19:41 RBC 4.83 10^6/uL (3.85-5.65) 06/06/23 19:41 Hgb 15.20 g/dL (11.27-16.99) 06/06/23 19:41 Hct 45.0 % (36-47) 06/06/23 19:41 MCV 93.2 fl (85-98) 06/06/23 19:41 MCH 31.5 pg (27-33) 06/06/23 19:41 MCHC 33.8 g/dL (30-55) 06/06/23 19:41 RDW 12.3 % (12.1-15.1) 06/06/23 19:41 Plt Count 329 10^3/cmm (157-399) 06/06/23 19:41 MPV 9.8 fL (7.4-10.4) 06/06/23 19:41 Neut % (Auto) 48.0 % 06/06/23 19:41 Lymph % (Auto) 37.1 % 06/06/23 19:41 [place] % (Auto) 5.7 % 06/06/23 19:41 Eos % (Auto) 7.9 % 06/06/23 19:41 Baso % (Auto) 0.8 % 06/06/23 19:41 Neut # (Auto) 4.55 10^3/uL (1.8-7.7) 06/06/23 19:41 Lymph # (Auto) 3.5 10^3/uL (0.8-4.8) 06/06/23 19:41 [place] # (Auto) 0.5 10^3/uL (0.2-0.9) 06/06/23 19:41 Eos # (Auto) 0.8 10^3/uL (0.0-0.8) 06/06/23 19:41 Baso # (Auto) 0.1 10^3/uL (0.0-0.1) 06/06/23 19:41 Nucleated RBC % (auto) 0 % 06/06/23 19:41 Nucleated RBCs # 0.0 /100WBC 06/06/23 19:41 Sodium 145 mmol/L (136-145) 06/06/23 19:41 Potassium 3.6 mmol/L (3.5-5.1) 06/06/23 19:41 Carbon Dioxide 23 mmol/L (22-29) 06/06/23 19:41 Anion Gap 16.6 (5-19) 06/06/23 19:41 Creatinine 0.7 mg/dL (0.5-0.9) 06/06/23 19:41 GFR Calculation 97.0 mL/min (90-130) 06/06/23 19:41 Glucose 103 mg/dL (65-115) 06/06/23 19:41 Calcium 8.9 mg/dL (8.5-10.5) 06/06/23 19:41 Total Bilirubin 0.3 mg/dL (0.15-1.2) 06/06/23 19:41 Alkaline Phosphatase 85 U/L (35-105) 06/06/23 19:41 Total Protein 7.4 g/dL (6.6-8.7) 06/06/23 19:41 Albumin 4.4 g/dL (3.5-5.2) 06/06/23 19:41 Globulin 3.0 g/dL (1.3-4.6) 06/06/23 19:41 HCG, Qual Negative (Negative) 06/06/23 19:42 Urine Opiates Screen Negative ng/mL (Negative) 06/06/23 19:42 Ur Barbiturates Screen Negative ng/mL (Negative) 06/06/23 19:42 Ur Phencyclidine Scrn Negative ng/mL (Negative) 06/06/23 19:42 Ur Amphetamines Screen Negative ng/mL (Negative) 06/06/23 19:42 U Benzodiazepines Scrn Positive ng/mL (Negative) H 06/06/23 19:42 Urine Cocaine Screen Negative ng/mL (Negative) 06/06/23 19:42 U Marijuana (THC) Screen Negative ng/mL (Negative) 06/06/23 19:42 No radiology studies performed this visit Discharge Plan Discharge Patient Disposition: Admitted As Inpatient Admit Provider: Pola Horowitz Clinical Impression: Suicidal ideation, Fall, Laceration of lip Condition: Stable Coding Level of Care Code 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
[2023-06-06 19:46] LABS: Basophils # 0.1 10^3/uL (0.0-0.1); Basophils % 0.8 %; Eosinophils # 0.8 10^3/uL (0.0-0.8); Eosinophils % 7.9 %; Lymphocytes # 3.5 10^3/uL (0.8-4.8); Lymphocytes % 37.1 %; Mean Corpuscular HGB Conc 33.8 g/dL (30-55); Mean Corpuscular Hemoglobin 31.5 pg (27-33); Mean Corpuscular Volume 93.2 fl (85-98); Mean Platelet Volume 9.8 fL (7.4-10.4); Monocytes # 0.5 10^3/uL (0.2-0.9); Monocytes % 5.7 %; Neutrophils # 4.55 10^3/uL (1.8-7.7); Nucleated Red Blood Cells % 0 %; Platelet Count 329 10^3/cmm (157-399); Red Blood Count 4.83 10^6/uL (3.85-5.65); Red Cell Distribution Width 12.3 % (12.1-15.1); White Blood Count 9.49 10^3/uL (3.29-11.43)
--- NOTE | 2023-06-06 19:50 | PC.NURSE ---
Patient was dressed out into NPU scrubs. All belongings have been removed and placed in designated bag.
[2023-06-06 19:58] LABS: HCG Qualitative Urine. Negative (Negative)
[2023-06-06 20:13] LABS: Amphetamines Screen Urine Negative (Negative); Barbiturates Screen Urine Negative (Negative); Benzodiazepines Screen Urine Positive (Negative); Cocaine Screen Urine Negative (Negative); Opiate Screen Urine Negative (Negative); PCP Screen Urine Negative (Negative); THC Screen Urine Negative (Negative)
--- NOTE | 2023-06-06 20:17 | PC.NURSE ---
96 Hour Hold Pt served with copy of 96 Hour Hold Rights by this RN and Security. All questions answered, pt tearfully stated I've been through this before, I know how it works .
[2023-06-06 20:24] VITALS: BP 124/80; PULSE 80; RESP 16; O2SAT 96
[2023-06-06 20:25] LABS: Alanine Aminotransferase 73 U/L (0-33); Albumin Level 4.4 g/dL (3.5-5.2); Alcohol Level 250 mg/dL (0-10); Alkaline Phosphatase 85 U/L (35-105); Anion Gap 16.6 (5-19); Aspartate Amino Transferase 58 U/L (0-32); Blood Urea Nitrogen 5 mg/dL (6-20); Calcium 8.9 mg/dL (8.5-10.5); Carbon Dioxide 23 mmol/L (22-29); Chloride 109 mmol/L (98-107); Glucose 103 mg/dL (65-115); Osmolality Calculated 298 mOsm/kg (285-295); Potassium 3.6 mmol/L (3.5-5.1); Salicylate 0.6 mg/dL (3-10); Sodium 145 mmol/L (136-145); Total Bilirubin 0.3 mg/dL (0.15-1.2); Total Protein 7.4 g/dL (6.6-8.7)
--- NOTE | 2023-06-06 20:26 | PC.NURSE ---
Report called to charge nurse Mirta RN in NPU. All questions and concerns from receiving nurse addressed at time of report.
[2023-06-06 20:35] LABS: Acetaminophen < 5.0 ug/mL (10-30)
[2023-06-06 20:38] VITALS: BP 152/104; PULSE 84; RESP 20; TEMP 36.4; O2SAT 98
[2023-06-06] MEDS: LORazepam 2 mg Tablet PO (21:15)
[2023-06-06] MEDS: ibuprofen 600 mg Tablet PO (21:23)
--- NOTE | 2023-06-06 21:46 | PC.NURSE ---
Pt arrived to NPU w/security and PSA at side at approximately 2037. Pt is tearful and anxious, BAL 250. PRN Lorazepam administered per CIWA w/score of 12. Pt cooperative w/assessment.
[2023-06-07 02:35] VITALS: BP 101/62
[2023-06-07 06:00] VITALS: BP 108/71; PULSE 76; RESP 16; TEMP 36.5; O2SAT 96
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
[2023-06-07] MEDS: ibuprofen 600 mg Tablet PO ×2 (07:34→17:42)
[2023-06-07] MEDS: thiamine 100 mg Tablet PO (07:40)
[2023-06-07] MEDS: LORazepam 2 mg Tablet PO ×3 (07:40→20:44)
[2023-06-07] MEDS: multivitamin therapeutic Tablet 1 TAB PO (07:40)
[2023-06-07] MEDS: folic acid 1 mg Tablet PO (07:40)
[2023-06-07] MEDS: nicotine 21 mg Patch 1 PATCH TRANSDERMA (07:42)
--- NOTE | 2023-06-07 08:12 | PC.NURSE ---
During morning assessment, patient states that her anxiety is pretty high, about a 10 . Patient reports being anxious about getting out and paying for her bills, etc. Patient denies depression. When asked about SI, patient stated not today .
[2023-06-07] MEDS: flu vacc pf 2023-24 (6 mos+) 60 MCG IM (10:30)
[2023-06-07] MEDS: acetaminophen 325 mg Tablet 650 MG PO (12:41)
[2023-06-07 14:00] VITALS: BP 153/105; PULSE 69; RESP 17; TEMP 36.8; O2SAT 99
[2023-06-07 20:16] VITALS: BP 137/93; PULSE 76; RESP 18; TEMP 36.7; O2SAT 97
[2023-06-07] MEDS: OLANZapine 5 mg TABLET PO (20:44)
[2023-06-08 06:00] VITALS: BP 138/89; PULSE 71; RESP 17; TEMP 36.6; O2SAT 95
[2023-06-08] MEDS: ibuprofen 600 mg Tablet PO ×2 (06:32→18:03)
[2023-06-08] MEDS: nicotine 21 mg Patch 1 PATCH TRANSDERMA (06:32)
[2023-06-08] MEDS: thiamine 100 mg Tablet PO (08:26)
[2023-06-08] MEDS: multivitamin therapeutic Tablet 1 TAB PO (08:26)
[2023-06-08] MEDS: folic acid 1 mg Tablet PO (08:26)
[2023-06-08] MEDS: chlorhexidine gluconate 0.12% Btl 473 mL 15 ML MUCOUS MEM ×4 (10:50→20:00)
[2023-06-08] MEDS: acetaminophen 325 mg Tablet 650 MG PO (13:18)
[2023-06-08] MEDS: LORazepam 2 mg Tablet PO (13:18)
[2023-06-08 14:00] VITALS: BP 140/90; PULSE 78; RESP 16; TEMP 36.2; O2SAT 96
--- NOTE | 2023-06-08 17:10 | P.NPUPN_ITS ---
Subjective NPU Subjective: Patient presented today reporting that she is open to outpatient rehab but is struggling with the idea of inpatient rehab. We discussed the pluses and minuses of each option. She continues to feel that if she does not work at the level that she is working now and it would be too detrimental to her family for her to be a viable approach. We discussed however her current addictive behaviors and how they are already impacting her family and her bottom line. She denies any issues with the medications at this time. Mental Status Exam MSE Comments: This is an obese versus morbidly obese, white female, in hospital scrubs with adequate grooming and eye contact. Bruising on her face and significant swelling of upper lip secondary to fall while intoxicated she reports. No abnormal movements except for psychomotor retardation. Cooperative with exam in mild distress. Speech was decreased rate and volume. Mood described as depressed; affect congruent. Thought process, organized. Thought content: patient denied any suicidal or homicidal ideation, there were no delusions reported or noted, patient denied any auditory or visual hallucinations. Attention, concentration, and memory appear intact but were not formally tested. He is alert and oriented times three. Insight and judgment appear limited, impulse control is impaired. Vitals/I&O/Wt Last Vital Signs Temp 98.6 F 06/08/23 19:47 Pulse 66 06/08/23 19:47 Resp 14 06/08/23 19:47 BP 143/89 06/08/23 19:47 Pulse Ox 96 06/08/23 19:47 O2 Del Method Room Air 06/08/23 19:47 Data NPU 06/06/23 19:41 06/06/23 19:41 A&P Assessment and plan (1) Anxiety: (2) History of laparoscopic cholecystectomy: (3) PTSD (post-traumatic stress disorder): (4) ETOH abuse: (5) Depression: Plan This is a 32-year-old, white female, with a long history of trauma and post-tra umatic stress disorder symptoms, depression, anxiety with alcohol addiction off of medication having relapsed with significant alcohol intoxication and use. 1. Continue current medication. Restarted naltrexone 50 mg p.o. daily with a plan to initiate Vivitrol injection as soon as possible 2. Encourage individual, group, and milieu therapy. 3. Continue q-15 minute checks for safety. 4. ? Encourage sober living treatment after discharge at the highest level of care to which he is willing to commit. An inpatient rehab would be the best option but she is ambivalent. Involuntary Hold Information 96 Hour Hold: 96 Hour Involuntary Admission: Yes 96 Hour Hold Ending Date: 06/12/23 96 Hour Hold Ending Time: 19:32 Attestations NPU Medical Necessity Statement*: Inpatient hospitalization is medically necessary and the clinically appropriate intervention, at this time. We will monitor medications and make changes as indicated. Likely length of stay is 2-4 days. Coding Level of Care Code Acute Code for Chg Fwd Diagnoses Anxiety F41.9 History of laparoscopic cholecystectomy Z90.49 PTSD (post-traumatic stress disorder) F43.10 ETOH abuse F10.10 Depression F32.9
[2023-06-08 19:47] VITALS: BP 143/89; PULSE 66; RESP 14; TEMP 37; O2SAT 96
[2023-06-08] MEDS: OLANZapine 5 mg TABLET PO (19:59)
[2023-06-09 06:00] VITALS: BP 153/93; PULSE 64; RESP 14; TEMP 37; O2SAT 97
[2023-06-09] MEDS: thiamine 100 mg Tablet PO (08:33)
[2023-06-09] MEDS: chlorhexidine gluconate 0.12% Btl 473 mL 15 ML MUCOUS MEM ×4 (08:33→20:04)
[2023-06-09] MEDS: folic acid 1 mg Tablet PO (08:34)
[2023-06-09] MEDS: multivitamin therapeutic Tablet 1 TAB PO (08:34)
[2023-06-09] MEDS: nicotine 21 mg Patch 1 PATCH TRANSDERMA (08:37)
[2023-06-09] MEDS: hyDROXYzine 25 mg Capsule 50 MG PO (11:34)
[2023-06-09] MEDS: OLANZapine 5 mg ODT PO (13:42)
--- NOTE | 2023-06-09 13:43 | PC.NURSE ---
pt states she has agitation side effect of vistaril. pt request to no longer take medication
[2023-06-09 14:00] VITALS: BP 141/87; PULSE 67; RESP 16; TEMP 37.2; O2SAT 97
--- NOTE | 2023-06-09 17:36 | P.NPUPN_ITS ---
Subjective NPU Subjective: Patient presented today reporting that she is working on getting into [facility] an outpatient program so that she can still work during the time she is in rehab. She reports a commitment to doing better in her sobriety. She reports that she is hopeful that she will still have a job and we talked about the likelihood of discharge in time that she could work on Monday. She denies any problems with the medication and reports her withdrawal is going better. Mental Status Exam MSE Comments: This is an obese versus morbidly obese, white female, in hospital scrubs with adequate grooming and eye contact. Bruising on her face and significant swelling of upper lip secondary to fall while intoxicated she reports. No abnormal movements except for psychomotor retardation. Cooperative with exam in mild distress. Speech was decreased rate and volume. Mood described as depressed; affect congruent. Thought process, organized. Thought content: patient denied any suicidal or homicidal ideation, there were no delusions reported or noted, patient denied any auditory or visual hallucinations. Attention, concentration, and memory appear intact but were not formally tested. He is alert and oriented times three. Insight and judgment appear limited, impulse control is impaired. Vitals/I&O/Wt Last Vital Signs Temp 98.9 F 06/09/23 14:00 Pulse 67 06/09/23 14:00 Resp 16 06/09/23 14:00 BP 141/87 06/09/23 14:00 Pulse Ox 97 06/09/23 14:00 O2 Del Method Room Air 06/09/23 14:00 Data NPU 06/06/23 19:41 06/06/23 19:41 A&P Assessment and plan (1) Anxiety: (2) History of laparoscopic cholecystectomy: (3) PTSD (post-traumatic stress disorder): (4) ETOH abuse: (5) Depression: Plan This is a 32-year-old, white female, with a long history of trauma and post- traumatic stress disorder symptoms, depression, anxiety with alcohol addiction off of medication having relapsed with significant alcohol intoxication and use. 1. Continue current medication. Restarted naltrexone 50 mg p.o. daily with a plan to initiate Vivitrol injection as soon as possible. We will consider SSRI or mood stabilizer prior to discharge. 2. Encourage individual, group, and milieu therapy. 3. Continue q-15 minute checks for safety. 4. ? Encourage sober living treatment after discharge at the highest level of care to which he is willing to commit. An inpatient rehab would be the best option but she is ambivalent. Involuntary Hold Information 96 Hour Hold: 96 Hour Involuntary Admission: Yes 96 Hour Hold Ending Date: 06/12/23 96 Hour Hold Ending Time: 19:32 Attestations NPU Medical Necessity Statement*: Inpatient hospitalization is medically necessary and the clinically appropriate intervention, at this time. We will monitor medications and make changes as indicated. Likely length of stay is 2-3 days. Coding Level of Care Code Acute Code for Chg Fwd Diagnoses Anxiety F41.9 History of laparoscopic cholecystectomy Z90.49 PTSD (post-traumatic stress disorder) F43.10 ETOH abuse F10.10 Depression F32.9
[2023-06-09 20:03] VITALS: BP 123/80; PULSE 68; RESP 16; O2SAT 93
[2023-06-09] MEDS: OLANZapine 5 mg TABLET PO (20:04)
[2023-06-10 06:00] VITALS: RESP 16
[2023-06-10] MEDS: multivitamin therapeutic Tablet 1 TAB PO (08:36)
[2023-06-10] MEDS: thiamine 100 mg Tablet PO (08:36)
[2023-06-10] MEDS: folic acid 1 mg Tablet PO (08:36)
[2023-06-10] MEDS: nicotine 21 mg Patch 1 PATCH TRANSDERMA (08:37)
[2023-06-10] MEDS: chlorhexidine gluconate 0.12% Btl 473 mL 15 ML MUCOUS MEM (08:40)
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
[2023-06-10 10:51] VITALS: RESP 16
[2023-06-10 10:53] VITALS: BP 123/80; PULSE 68; RESP 16; TEMP 37; O2SAT 97
== END 2023-06-10 12:20 | disposition home or self-care (01) | DRG 881 ==
LOC: ER 20:01 → NP 20:21
PROVIDERS: Admitting Provider Psychiatry & Neurology Psychiatry; Emergency Provider Emergency Medicine; PCP Nurse Practitioner Family; Visit Provider Psychiatry & Neurology Psychiatry
DX: F32.A Depression, unspecified (principal); R45.851 Suicidal ideations; Z68.41 Body mass index [BMI] 40.0-44.9, adult; F10.20 Alcohol dependence, uncomplicated; E66.01 Morbid (severe) obesity due to excess calories; F41.9 Anxiety disorder, unspecified; F43.12 Post-traumatic stress disorder, chronic; F17.210 Nicotine dependence, cigarettes, uncomplicated; J45.909 Unspecified asthma, uncomplicated
CPT/HCPCS: 80053; 80306; 80307; 81025; 85025; 90471; 90686; 96372; 97150; 97165; 99285; J3411

== ENCOUNTER 2023-06-21 09:45 | Emergency (ER) | payer BC, MEDICAID, SELFPAY ==
--- NOTE | 2023-06-21 09:55 | XR_ITS ---
WS: [id number] PORTABLE CHEST HISTORY: cp COMPARISON: 04/04/2023 Lungs are clear and well expanded. No pleural effusion or pneumothorax. Cardiac size: Normal. Mediastinum/Aorta: Normal mediastinum. No osseous abnormality seen. IMPRESSION: Unremarkable portable chest.
[2023-06-21 09:56] VITALS: BP 149/93; PULSE 63; RESP 18; TEMP 36.8; O2SAT 96; BMI 42.9
--- NOTE | 2023-06-21 09:56 | ECG_ITS ---
[facility] Test Date: 2023-06-21 Pat Name: Janie Medrano Department: Room: Gender: Female Homebound Teacher: : 1990 Requested By: Jessenia Hylton Order Number: [id number] Elisa MD: Da Costello M.D. Measurements Intervals [place] Rate: 66 P: 29 MA: 155 QRS: 1 QRSD: 91 T: 28 QT: 395 QTc: 414 Interpretive Statements SINUS RHYTHM No previous ECG available for comparison Normal EKG Electronically Signed On 06-22-2023 13:21:38 [employer] LEADER by Da Costello M.D. [email or web address]
--- NOTE | 2023-06-21 09:56 | ED_ITS ---
HPI - Chest Pain General: Chief Complaint: Chest Pain Stated Complaint: chest pain Time Seen by Provider: 06/21/23 09:53 Source: patient Mode of arrival: ambulatory Limitations: no limitations History of Present Illness: 32-year-old female states that she has been having chest pain since yesterday. States been a dull aching pain she rates a 2 out of 10 she has had some slight dyspnea as well she does have a history of asthma states that she has felt like she had a hard time getting a deep breath at times. She is in no distress here denies any fevers or vomiting. Associated symptoms: Reports dyspnea; Deny abdominal pain, fever(s), nausea or vomiting Review of Systems Const: Denies: fever(s), chills, body aches or change in appetite Eyes: Denies: blurry vision or eye discomfort ENMT: Denies: throat pain or dental pain Card: Reports: chest pain Resp: Reports: dyspnea GI: Denies: abdominal pain, nausea, vomiting or diarrhea : Denies: dysuria Musc: Denies: neck pain or back pain Skin/Breast: Denies: rash Neuro: Denies: headache(s) PFSH ED PFSH: Medical History Alcohol use disorder, severe, dependence Asthma Bipolar II disorder, most recent episode hypomanic moderate severity with mixed features Chronic post-traumatic stress disorder Cigarette nicotine dependence Marijuana use, episodic Psychiatric care Surgical History History of laparoscopic cholecystectomy History of tonsillectomy and adenoidectomy Hx of colonoscopy AGE 18 No significant past surgical history Social History Smoking and tobacco/nicotine status: current every day tobacco/nicotine user Alcohol intake: current Alcohol intake frequency: holidays/special occasions only Physical Exam Const: COMMON NORMALS: no acute distress, patient oriented x3 and healthy appearing HENMT: COMMON NORMALS: normocephalic and atraumatic HEAD & SCALP: normocephalic and atraumatic Eye: COMMON NORMALS: Equal, round and reactive pupils present and EOMs intact bilaterally PUPIL: Yes Equal, round and reactive pupils present Neck/C-Spine: COMMON NORMALS: full ROM and supple Chest: COMMONS NORMALS: normal inspection of the chest and normal palpation of entire chest wall Resp: COMMON NORMALS: normal respiratory effort, No retractions, No use of accessory muscles and clear to auscultation bilaterally AUSCULTATION: clear to auscultation bilaterally Cardio: COMMON NORMALS: regular rate, regular rhythm and No murmurs present (Cardio) RATE: regular rate RHYTHM: regular rhythm GI: COMMON NORMALS: Normal to inspection, nondistended, normoactive bowel sounds present, Soft to palpation, non-tender and no masses PALPATION: Yes Soft to palpation Extremity: COMMON NORMALS: normal to inspection and full ROM Neuro: COMMON NORMALS: patient oriented x3, moves all extremities and no focal motor deficits Psych: COMMON NORMALS: mental status grossly normal, Normal thought process present and cooperative THOUGHT PROCESS: Normal thought process present Skin: COMMON NORMALS: no rashes or lesions noted and no wounds GENERAL SKIN EXAM: no rashes or lesions noted Course Vital Signs: Vital signs: Vital Signs Temperature 98.2 F 06/21/23 09:56 Pulse Rate 63 06/21/23 09:56 Respiratory Rate 18 06/21/23 09:56 Blood Pressure 149/93 06/21/23 09:56 Pulse Oximetry 96 06/21/23 09:56 Oxygen Delivery Me thod Room Air 06/21/23 09:56 MDM - Chest Pain Medical Decision Making Patient presents for chest pains atypical in nature D-dimer troponin here is normal pain is likely pleuritic. We will place her on Naprosyn she is to follow-up with PCP and return if worsening she understands agrees to plan. Medical Records I reviewed the patient's medical records. Lab Data I reviewed the patient's lab results. 06/21/23 10:03 06/21/23 10:03 Laboratory Results WBC 9.21 10^3/uL (3.29-11.43) 06/21/23 10:03 RBC 4.63 10^6/uL (3.85-5.65) 06/21/23 10:03 Hgb 14.40 g/dL (11.27-16.99) 06/21/23 10:03 Hct 43.8 % (36-47) 06/21/23 10:03 MCV 94.6 fl (85-98) 06/21/23 10:03 MCH 31.1 pg (27-33) 06/21/23 10:03 MCHC 32.9 g/dL (30-55) 06/21/23 10:03 RDW 11.9 % (12.1-15.1) L 06/21/23 10:03 Plt Count 292 10^3/cmm (157-399) 06/21/23 10:03 MPV 10.2 fL (7.4-10.4) 06/21/23 10:03 Neut % (Auto) 57.3 % 06/21/23 10:03 Lymph % (Auto) 29.1 % 06/21/23 10:03 [place] % (Auto) 6.3 % 06/21/23 10:03 Eos % (Auto) 5.3 % 06/21/23 10:03 Baso % (Auto) 1.1 % 06/21/23 10:03 Neut # (Auto) 5.28 10^3/uL (1.8-7.7) 06/21/23 10:03 Lymph # (Auto) 2.7 10^3/uL (0.8-4.8) 06/21/23 10:03 [place] # (Auto) 0.6 10^3/uL (0.2-0.9) 06/21/23 10:03 Eos # (Auto) 0.5 10^3/uL (0.0-0.8) 06/21/23 10:03 Baso # (Auto) 0.1 10^3/uL (0.0-0.1) 06/21/23 10:03 Nucleated RBC % (auto) 0 % 06/21/23 10:03 Nucleated RBCs # 0.0 /100WBC 06/21/23 10:03 D-Dimer 0.28 ug/mLFEU (0-0.59) 06/21/23 10:03 Sodium 137 mmol/L (136-145) 06/21/23 10:03 Potassium 3.8 mmol/L (3.5-5.1) 06/21/23 10:03 Chloride 102 mmol/L (98-107) 06/21/23 10:03 Carbon Dioxide 21 mmol/L (22-29) L 06/21/23 10:03 Anion Gap 17.8 (5-19) 06/21/23 10:03 BUN 9 mg/dL (6-20) 06/21/23 10:03 Creatinine 0.7 mg/dL (0.5-0.9) 06/21/23 10:03 GFR Calculation 97.0 mL/min (90-130) 06/21/23 10:03 Glucose 87 mg/dL (65-115) 06/21/23 10:03 Calculated Osmolality 282 mOsm/kg (285-295) L 06/21/23 10:03 Calcium 9.3 mg/dL (8.5-10.5) 06/21/23 10:03 Total Bilirubin 0.5 mg/dL (0.15-1.2) 06/21/23 10:03 AST 41 U/L (0-32) H 06/21/23 10:03 ALT 60 U/L (0-33) H 06/21/23 10:03 Alkaline Phosphatase 75 U/L (35-105) 06/21/23 10:03 Troponin T Baseline < 6 ng/L (0-10) 06/21/23 10:03 Total Protein 7.3 g/dL (6.6-8.7) 06/21/23 10:03 Albumin 4.5 g/dL (3.5-5.2) 06/21/23 10:03 Globulin 2.8 g/dL (1.3-4.6) 06/21/23 10:03 Lipase 25 U/L (13-60) 06/21/23 10:03 All radiology interpretation(s) finalized by discharge EKG Data EKG 1: I personally reviewed and interpreted this EKG as follows: EKG interpretation date: 06/21/23 EKG interpretation time: 09:50 Interpretation: nsr hr [address] or t wave abnormalities qrs 91 qtc 408 Discharge Plan Discharge Patient Disposition: Home Clinical Impression: Chest pain Condition: Stable Prescriptions: New Naprosyn 500 mg tablet 500 mg PO BID PRN (Reason: pain) Qty: 20 0RF No Action albuterol sulfate 90 mcg/actuation HFA aerosol inhaler 2 inh INHALATION Q4H PRN (Reason: shortness of breath or wheezing) Qty: 18 0RF thiamine mononitrate (vit B1) [Vitamin B-1 (mononitrate)] 100 mg Tablet 100 mg PO DAILY 30 Days Qty: 30 1RF naltrexone 50 mg tablet 50 mg PO DAILY 30 Days Qty: 30 1RF olanzapine 5 mg tablet 5 mg PO BEDTIME 30 Days Qty: 30 1RF Discharge Orders: Discharge ED (Routine); Ordered 06/21/23 Ordered By: Jessenia Hylton Referrals: Shima Tavarez, TRAFFIC INCIDENT MANAGEMENT MANAGER [Primary Care Provider] - 1-3 days Discharge Diet: Advance as tolerated Discharge Activity: Resume usual activity Patient Instructions: Chest Pain (ED) Stand Alone Forms: Work/School Release Coding Level of Care Code ED Compensation Coordinator for Ko Cabrera
[2023-06-21 10:09] LABS: Basophils # 0.1 10^3/uL (0.0-0.1); Basophils % 1.1 %; Eosinophils # 0.5 10^3/uL (0.0-0.8); Eosinophils % 5.3 %; Hematocrit 43.8 % (36-47); Lymphocytes # 2.7 10^3/uL (0.8-4.8); Lymphocytes % 29.1 %; Mean Corpuscular HGB Conc 32.9 g/dL (30-55); Mean Corpuscular Hemoglobin 31.1 pg (27-33); Mean Corpuscular Volume 94.6 fl (85-98); Mean Platelet Volume 10.2 fL (7.4-10.4); Monocytes # 0.6 10^3/uL (0.2-0.9); Monocytes % 6.3 %; Neutrophils # 5.28 10^3/uL (1.8-7.7); Neutrophils % 57.3 %; Nucleated Red Blood Cells % 0 %; Platelet Count 292 10^3/cmm (157-399); Red Blood Count 4.63 10^6/uL (3.85-5.65); Red Cell Distribution Width 11.9 % (12.1-15.1); White Blood Count 9.21 10^3/uL (3.29-11.43)
[2023-06-21 10:24] LABS: D Dimer 0.28 ug/mLFEU (0-0.59)
[2023-06-21 10:34] LABS: Alanine Aminotransferase 60 U/L (0-33); Albumin Level 4.5 g/dL (3.5-5.2); Alkaline Phosphatase 75 U/L (35-105); Anion Gap 17.8 (5-19); Aspartate Amino Transferase 41 U/L (0-32); Blood Urea Nitrogen 9 mg/dL (6-20); Calcium 9.3 mg/dL (8.5-10.5); Carbon Dioxide 21 mmol/L (22-29); Chloride 102 mmol/L (98-107); Globulin 2.8 g/dL (1.3-4.6); Glucose 87 mg/dL (65-115); Lipase 25 U/L (13-60); Osmolality Calculated 282 mOsm/kg (285-295); Potassium 3.8 mmol/L (3.5-5.1); Sodium 137 mmol/L (136-145); Total Bilirubin 0.5 mg/dL (0.15-1.2); Total Protein 7.3 g/dL (6.6-8.7)
[2023-06-21 10:36] LABS: Troponin(5th) Baseline < 6 ng/L (0-10)
== END 2023-06-21 11:18 | disposition home or self-care (01) ==
PROVIDERS: Emergency Provider Emergency Medicine; PCP Nurse Practitioner Family
DX: R07.9 Chest pain, unspecified (principal); Z72.0 Tobacco use
CPT/HCPCS: 36415; 71045; 80053; 83690; 84484; 85025; 85378; 93005; 93010; 99285

== ENCOUNTER 2023-07-26 10:31 | Emergency (ER) | payer BC, MEDICAID, SELFPAY ==
[2023-07-26 10:45] VITALS: BP 139/87; PULSE 86; RESP 16; TEMP 36.7; O2SAT 98; BMI 41.1
--- NOTE | 2023-07-26 13:10 | W.ED.HA ---
HPI - Headache General: Chief Complaint: Headache Stated Complaint: headache Time Seen by Provider: 07/26/23 12:30 Source: patient Mode of arrival: ambulatory Limitations: no limitations History of Present Illness: 32-year-old female states she has a history of migraines states she had a migraine headache over the last 4 days its wax and wane states she had photophobia and phonophobia along with some blurry vision with it. Her headaches currently a 5 out of 10 denies any neck pain denies any fevers denies any vomiting or diarrhea Associated symptoms: Deny chest pain, fever(s), nausea, rash or vomiting Review of Systems Const: Denies: fever(s), chills, body aches or change in appetite Eyes: Reports: blurry vision; Denies: eye discomfort ENMT: Denies: throat pain or dental pain Card: Denies: chest pain Resp: Denies: dyspnea GI: Denies: abdominal pain, nausea, vomiting or diarrhea Musc: Denies: neck pain or back pain Skin/Breast: Denies: rash Neuro: Reports: headache(s) PFSH ED PFSH: Medical History Marijuana use, episodic Alcohol use disorder, severe, dependence Cigarette nicotine dependence Chronic post-traumatic stress disorder Bipolar II disorder, most recent episode hypomanic moderate severity with mixed features Psychiatric care Asthma Surgical History History of laparoscopic cholecystectomy History of tonsillectomy and adenoidectomy Hx of colonoscopy AGE 18 No significant past surgical history Social History Smoking and tobacco/nicotine status: current every day tobacco/nicotine user Alcohol intake: current Alcohol intake frequency: holidays/special occasions only Physical Exam Const: COMMON NORMALS: no acute distress, patient oriented x3 and healthy appearing HENMT: COMMON NORMALS: normocephalic and atraumatic HEAD & SCALP: normocephalic and atraumatic Eye: COMMON NORMALS: Equal, round and reactive pupils present and EOMs intact bilaterally PUPIL: Yes Equal, round and reactive pupils present Neck/C-Spine: COMMON NORMALS: full ROM and supple Chest: COMMONS NORMALS: normal inspection of the chest Resp: COMMON NORMALS: normal respiratory effort Cardio: COMMON NORMALS: regular rate, regular rhythm and No murmurs present (Cardio) RATE: regular rate RHYTHM: regular rhythm Extremity: COMMON NORMALS: normal to inspection and full ROM Neuro: COMMON NORMALS: patient oriented x3, moves all extremities and no focal motor deficits Psych: COMMON NORMALS: mental status grossly normal, Normal thought process present and cooperative THOUGHT PROCESS: Normal thought process present Skin: COMMON NORMALS: no rashes or lesions noted and no wounds GENERAL SKIN EXAM: no rashes or lesions noted Course Vital Signs: Vital signs: Vital Signs Temperature 98.0 F 07/26/23 10:45 Pulse Rate 86 07/26/23 10:45 Respiratory Rate 16 07/26/23 10:45 Blood Pressure 162/117 07/26/23 13:18 Pulse Oximetry 98 07/26/23 10:45 Oxygen Delivery Me thod Room Air 07/26/23 10:45 MDM - Headache Medical Decision Making Patient presents here with a headache that is since resolved likely migraine headache she has no signs of meningitis or subarachnoid hemorrhage no reason to perform a head CT. Medical Records I reviewed the patient's medical records. No radiology studies performed this visit Discharge Plan Discharge Patient Disposition: Home Clinical Impression: Headache Condition: Stable Prescriptions: No Action albuterol sulfate 90 mcg/actuation HFA aerosol inhaler 2 inh INHALATION Q4H PRN (Reason: shortness of breath or wheezing) Qty: 18 0RF thiamine mononitrate (vit B1) [Vitamin B-1 (mononitrate)] 100 mg Tablet 100 mg PO DAILY 30 Days Qty: 30 1RF naltrexone 50 mg tablet 50 mg PO DAILY 30 Days Qty: 30 1RF olanzapine 5 mg tablet 5 mg PO BEDTIME 30 Days Qty: 30 1RF fluticasone propionate 50 mcg/actuation spray,suspension 1 spray INTRANASAL DAILY Discharge Orders: Discharge ED (Routine); Ordered 07/26/23 Ordered By: Jessenia Hylton Referrals: Shima Tavarez SUPERVISOR ROLLING ROOM [Primary Care Provider] - 1-3 days Discharge Diet: Advance as tolerated Discharge Activity: Resume usual activity Patient Instructions: General Headache (ED) Coding Level of Care Code ED Data Entry Processor for Ko Cabrera
[2023-07-26] MEDS: ketorolac 30 mg/mL INJ 15 MG IVP (13:17)
[2023-07-26] MEDS: diphenhydrAMINE 50 mg/mL SDV 1mL IVP (13:17)
[2023-07-26] MEDS: metoclopramide 5 mg/mL SDV 2 mL 10 MG IVP (13:17)
[2023-07-26 13:18] VITALS: BP 162/117
[2023-07-26 14:10] VITALS: RESP 18; O2SAT 98
== END 2023-07-26 14:11 | disposition home or self-care (01) ==
PROVIDERS: Emergency Provider Emergency Medicine; PCP Nurse Practitioner Family
DX: R51.9 Headache, unspecified (principal); Z72.0 Tobacco use
CPT/HCPCS: 96374; 96375; 99284; J1200; J1885; J2765

== ENCOUNTER 2023-08-18 17:42 | Emergency (ER) | payer MEDICAID, SELFPAY ==
[2023-08-18 17:49] VITALS: BP 148/95; PULSE 99; RESP 18; TEMP 37.2; O2SAT 95
[2023-08-18 18:18] LABS: Basophils # 0.1 10^3/uL (0.0-0.1); Eosinophils # 0.4 10^3/uL (0.0-0.8); Eosinophils % 4.3 %; Hematocrit 46.7 % (36-47); Lymphocytes # 3.3 10^3/uL (0.8-4.8); Lymphocytes % 32.8 %; Mean Corpuscular HGB Conc 33.6 g/dL (30-55); Mean Corpuscular Hemoglobin 31.7 pg (27-33); Mean Corpuscular Volume 94.2 fl (85-98); Monocytes # 0.6 10^3/uL (0.2-0.9); Monocytes % 5.8 %; Neutrophils # 5.58 10^3/uL (1.8-7.7); Neutrophils % 55.1 %; Nucleated Red Blood Cells % 0 %; Platelet Count 304 10^3/cmm (157-399); Red Blood Count 4.96 10^6/uL (3.85-5.65); White Blood Count 10.13 10^3/uL (3.29-11.43)
--- NOTE | 2023-08-18 18:33 | W.ED.PSYCHS ---
HPI - Psych General: Chief Complaint: Psychiatric Symptoms Stated Complaint: si, etoh Time Seen by Provider: 08/18/23 17:49 PFSH ED PFSH: Medical History Marijuana use, episodic Alcohol use disorder, severe, dependence Cigarette nicotine dependence Chronic post-traumatic stress disorder Bipolar II disorder, most recent episode hypomanic moderate severity with mixed features Psychiatric care Asthma Surgical History History of laparoscopic cholecystectomy History of tonsillectomy and adenoidectomy Hx of colonoscopy AGE 18 No significant past surgical history Social History Smoking and tobacco/nicotine status: current every day tobacco/nicotine user Alcohol intake: current Alcohol intake frequency: holidays/special occasions only Course Vital Signs: Vital signs: Vital Signs Temperature 99.0 F 08/18/23 17:49 Pulse Rate 99 08/18/23 17:49 Respiratory Rate 18 08/18/23 17:49 Blood Pressure 148/95 08/18/23 17:49 Pulse Oximetry 95 08/18/23 17:49 Oxygen Delivery Me thod Room Air 08/18/23 17:49 MDM - Psych Lab Data 08/18/23 18:05 08/18/23 18:05 Laboratory Results WBC 10.13 10^3/uL (3.29-11.43) 08/18/23 18:05 RBC 4.96 10^6/uL (3.85-5.65) 08/18/23 18:05 Hgb 15.70 g/dL (11.27-16.99) 08/18/23 18:05 Hct 46.7 % (36-47) 08/18/23 18:05 MCV 94.2 fl (85-98) 08/18/23 18:05 MCH 31.7 pg (27-33) 08/18/23 18:05 MCHC 33.6 g/dL (30-55) 08/18/23 18:05 RDW 12.0 % (12.1-15.1) L 08/18/23 18:05 Plt Count 304 10^3/cmm (157-399) 08/18/23 18:05 MPV 10.0 fL (7.4-10.4) 08/18/23 18:05 Neut % (Auto) 55.1 % 08/18/23 18:05 Lymph % (Auto) 32.8 % 08/18/23 18:05 [place] % (Auto) 5.8 % 08/18/23 18:05 Eos % (Auto) 4.3 % 08/18/23 18:05 Baso % (Auto) 1.0 % 08/18/23 18:05 Neut # (Auto) 5.58 10^3/uL (1.8-7.7) 08/18/23 18:05 Lymph # (Auto) 3.3 10^3/uL (0.8-4.8) 08/18/23 18:05 [place] # (Auto) 0.6 10^3/uL (0.2-0.9) 08/18/23 18:05 Eos # (Auto) 0.4 10^3/uL (0.0-0.8) 08/18/23 18:05 Baso # (Auto) 0.1 10^3/uL (0.0-0.1) 08/18/23 18:05 Nucleated RBC % (auto) 0 % 08/18/23 18:05 Nucleated RBCs # 0.0 /100WBC 08/18/23 18:05 Discharge Plan Discharge Condition: Stable Prescriptions: No Action albuterol sulfate 90 mcg/actuation HFA aerosol inhaler 2 inh INHALATION Q4H PRN (Reason: shortness of breath or wheezing) Qty: 18 0RF thiamine mononitrate (vit B1) [Vitamin B-1 (mononitrate)] 100 mg Tablet 100 mg PO DAILY 30 Days Qty: 30 1RF naltrexone 50 mg tablet 50 mg PO DAILY 30 Days Qty: 30 1RF olanzapine 5 mg tablet 5 mg PO BEDTIME 30 Days Qty: 30 1RF fluticasone propionate 50 mcg/actuation spray,suspension 1 spray INTRANASAL DAILY Referrals: Shima Tavarez FNP [Primary Care Provider] - Coding Level of Care Code ED Pack Press Operator for Ko Cabrera
[2023-08-18 18:36] LABS: Alanine Aminotransferase 44 U/L (0-33); Albumin Level 4.3 g/dL (3.5-5.2); Alcohol Level 201 mg/dL (0-10); Alkaline Phosphatase 78 U/L (35-105); Anion Gap 18.5 (5-19); Aspartate Amino Transferase 28 U/L (0-32); Blood Urea Nitrogen 8 mg/dL (6-20); Calcium 9.3 mg/dL (8.5-10.5); Carbon Dioxide 19 mmol/L (22-29); Chloride 106 mmol/L (98-107); Globulin 3.3 g/dL (1.3-4.6); Glucose 109 mg/dL (65-115); Osmolality Calculated 289 mOsm/kg (285-295); Potassium 3.5 mmol/L (3.5-5.1); Sodium 140 mmol/L (136-145); Total Bilirubin 0.2 mg/dL (0.15-1.2); Total Protein 7.6 g/dL (6.6-8.7)
[2023-08-18 18:40] LABS: Acetaminophen < 5.0 ug/mL (10-30); Salicylate < 0.3 mg/dL (3-10)
--- NOTE | 2023-08-18 19:32 | ED.C_ITS ---
HPI - Psych 2 General: Chief Complaint: Psychiatric Symptoms Stated Complaint: si, etoh Time Seen by Provider: 08/18/23 17:49 Source: patient Mode of arrival: ambulatory Limitations: no limitations History of Present Illness: 32-year-old female who is very well-know n to the ER states she had been drinking today got in a fight with her boyfriend and made statements about hurting herself she now regrets she states that she is not suicidal she states that she would never want to as she has a dog she has to take care of denies any worsening improving factors. Associated symptoms: Reports depression Review of Systems 2 Const: Denies: fever(s), chills, body aches or change in appetite ENMT: Denies: throat pain or dental pain Card: Denies: chest pain Resp: Denies: dyspnea GI: Denies: abdominal pain, nausea, vomiting or diarrhea : Denies: dysuria Musc: Denies: neck pain or back pain Skin/Breast: Denies: rash Neuro: Denies: headache(s) Psych: Reports: depression PFSH ED 2 PFSH: Medical History Marijuana use, episodic Alcohol use disorder, severe, dependence Cigarette nicotine dependence Chronic post-traumatic stress disorder Bipolar II disorder, most recent episode hypomanic moderate severity with mixed features Psychiatric care Asthma Surgical History History of laparoscopic cholecystectomy History of tonsillectomy and adenoidectomy Hx of colonoscopy AGE 18 No significant past surgical history Social History Smoking and tobacco/nicotine status: current every day tobacco/nicotine user Alcohol intake: current Alcohol intake frequency: holidays/special occasions only Physical Exam 2 Const: COMMON NORMALS: no acute distress, patient oriented x3 and healthy appearing HENMT: COMMON NORMALS: normocephalic and atraumatic HEAD & SCALP: n ormocephalic and atraumatic Eye: COMMON NORMALS: Equal, round and reactive pupils present and EOMs intact bilaterally PUPIL: Yes Equal, round and reactive pupils present Neck/C-Spine: COMMON NORMALS: full ROM and supple Chest: COMMONS NORMALS: normal inspection of the chest Resp: COMMON NORMALS: normal respiratory effort Cardio: COMMON NORMALS: regular rate, regular rhythm and No murmurs present (Cardio) RATE: regular rate RHYTHM: regular rhythm GI: COMMON NORMALS: Normal to inspection, nondistended, normoactive bowel sounds present, Soft to palpation, non-tender and no masses PALPATION: Yes Soft to palpation Extremity: COMMON NORMALS: normal to inspection and full ROM Neuro: COMMON NORMALS: patient oriented x3, moves all extremities and no focal motor deficits Psych: COMMON NORMALS: mental status grossly normal, Normal thought process present and cooperative THOUGHT PROCESS: Normal thought process present Skin: COMMON NORMALS: no rashes or lesions noted and no wounds GENERAL SKIN EXAM: no rashes or lesions noted Course 2 Vital Signs: Vital signs: Vital Signs Temperature 99.0 F 08/18/23 17:49 Pulse Rate 99 08/18/23 17:49 Respiratory Rate 18 08/18/23 17:49 Blood Pressure 148/95 08/18/23 17:49 Pulse Oximetry 95 08/18/23 17:49 Oxygen Delivery Me thod Room Air 08/18/23 17:49 MDM - Psych Medical Decision Making Patient presents with depression with alcohol intoxication she is not truly suicidal believes she is just having an outburst she is stable for discharge I did discuss case with Dr. Horowitz who agrees patient stable for discharge. Medical Records I reviewed the patient's medical records. Lab Data I reviewed the patient's lab results. 08/18/23 18:05 08/18/23 18:05 Laboratory Results WBC 10.13 10^3/uL (3.29-11.43) 08/18/23 18:05 RBC 4.96 10^6/uL (3.85-5.65) 08/18/23 18:05 Hgb 15.70 g/dL (11.27-16.99) 08/18/23 18:05 Hct 46.7 % (36-47) 08/18/23 18:05 MCV 94.2 fl (85-98) 08/18/23 18:05 MCH 31.7 pg (27-33) 08/18/23 18:05 MCHC 33.6 g/dL (30-55) 08/18/23 18:05 RDW 12.0 % (12.1-15.1) L 08/18/23 18:05 Plt Count 304 10^3/cmm (157-399) 08/18/23 18:05 MPV 10.0 fL (7.4-10.4) 08/18/23 18:05 Neut % (Auto) 55.1 % 08/18/23 18:05 Lymph % (Auto) 32.8 % 08/18/23 18:05 [place] % (Auto) 5.8 % 08/18/23 18:05 Eos % (Auto) 4.3 % 08/18/23 18:05 Baso % (Auto) 1.0 % 08/18/23 18:05 Neut # (Auto) 5.58 10^3/uL (1.8-7.7) 08/18/23 18:05 Lymph # (Auto) 3.3 10^3/uL (0.8-4.8) 08/18/23 18:05 [place] # (Auto) 0.6 10^3/uL (0.2-0.9) 08/18/23 18:05 Eos # (Auto) 0.4 10^3/uL (0.0-0.8) 08/18/23 18:05 Baso # (Auto) 0.1 10^3/uL (0.0-0.1) 08/18/23 18:05 Nucleated RBC % (auto) 0 % 08/18/23 18:05 Nucleated RBCs # 0.0 /100WBC 08/18/23 18:05 Sodium 140 mmol/L (136-145) 08/18/23 18:05 Potassium 3.5 mmol/L (3.5-5.1) 08/18/23 18:05 Chloride 106 mmol/L (98-107) 08/18/23 18:05 Carbon Dioxide 19 mmol/L (22-29) L 08/18/23 18:05 Anion Gap 18.5 (5-19) 08/18/23 18:05 BUN 8 mg/dL (6-20) 08/18/23 18:05 Creatinine 0.7 mg/dL (0.5-0.9) 08/18/23 18:05 GFR Calculation 97.0 mL/min (90-130) 08/18/23 18:05 Glucose 109 mg/dL (65-115) 08/18/23 18:05 Calculated Osmolality 289 mOsm/kg (285-295) 08/18/23 18:05 Calcium 9.3 mg/dL (8.5-10.5) 08/18/23 18:05 Total Bilirubin 0.2 mg/dL (0.15-1.2) 08/18/23 18:05 AST 28 U/L (0-32) 08/18/23 18:05 ALT 44 U/L (0-33) H 08/18/23 18:05 Alkaline Phosphatase 78 U/L (35-105) 08/18/23 18:05 Total Protein 7.6 g/dL (6.6-8.7) 08/18/23 18:05 Albumin 4.3 g/dL (3.5-5.2) 08/18/23 18:05 Globulin 3.3 g/dL (1.3-4.6) 08/18/23 18:05 Salicylates < 0.3 mg/dL (3-10) L 08/18/23 18:05 Urine Opiates Screen Negative ng/mL (Negative) 08/18/23 18:01 Acetaminophen < 5.0 ug/mL (10-30) L 08/18/23 18:05 Ur Barbiturates Screen Negative ng/mL (Negative) 08/18/23 18:01 Ur Phencyclidine Scrn Negative ng/mL (Negative) 08/18/23 18:01 Ur Amphetamines Screen Negative ng/mL (Negative) 08/18/23 18:01 U Benzodiazepines Scrn Negative ng/mL (Negative) 08/18/23 18:01 Urine Cocaine Screen Negative ng/mL (Negative) 08/18/23 18:01 U Marijuana (THC) Screen Negative ng/mL (Negative) 08/18/23 18:01 Ethyl Alcohol 201 mg/dL (0-10) H 08/18/23 18:05 No radiology studies performed this visit Discharge Plan Discharge Patient Disposition: Home Clinical Impression: Alcohol intoxication Qualifiers: Complication of substance-induced condition: uncomplicated Qualified Code(s): F 10.920 - Alcohol use, unspecified with intoxication, uncomplicated Condition: Stable Prescriptions: No Action albuterol sulfate 90 mcg/actuation HFA aerosol inhaler 2 inh INHALATION Q4H PRN (Reason: shortness of breath or wheezing) Qty: 18 0RF thiamine mononitrate (vit B1) [Vitamin B-1 (mononitrate)] 100 mg Tablet 100 mg PO DAILY 30 Days Qty: 30 1RF naltrexone 50 mg tablet 50 mg PO DAILY 30 Days Qty: 30 1RF olanzapine 5 mg tablet 5 mg PO BEDTIME 30 Days Qty: 30 1RF fluticasone propionate 50 mcg/actuation spray,suspension 1 spray INTRANASAL DAILY Discharge Orders: Discharge ED (Routine); Ordered 08/18/23 Ordered By: Jessenia Hylton Referrals: Shima Tavarez, FARM IMPLEMENT MECHANIC [Primary Care Provider] - Discharge Diet: Advance as tolerated Discharge Activity: Resume usual activity Patient Instructions: Abuse of Alcohol (ED) Coding Level of Care Code ED Computer Mechanic for Ko Cabrera
[2023-08-18 19:44] LABS: Amphetamines Screen Urine Negative (Negative); Barbiturates Screen Urine Negative (Negative); Benzodiazepines Screen Urine Negative (Negative); Cocaine Screen Urine Negative (Negative); Opiate Screen Urine Negative (Negative); PCP Screen Urine Negative (Negative); THC Screen Urine Negative (Negative)
== END 2023-08-18 20:07 | disposition home or self-care (01) ==
PROVIDERS: Emergency Provider Emergency Medicine; PCP Nurse Practitioner Family
DX: F10.920 Alcohol use, unspecified with intoxication, uncomplicated (principal); Y90.7 Blood alcohol level of 200-239 mg/100 ml; Z72.0 Tobacco use
CPT/HCPCS: 36415; 80053; 80306; 80307; 85025; 99283

== ENCOUNTER 2023-09-16 04:35 | Emergency (ER) | payer MEDICAID, SELFPAY ==
[2023-09-16 04:43] VITALS: BP 141/101; PULSE 92; RESP 16; TEMP 36.7; O2SAT 97
[2023-09-16 05:13] VITALS: BP 123/95; PULSE 82; O2SAT 94
--- NOTE | 2023-09-16 05:32 | ED_ITS ---
HPI - Asthma General: Chief Complaint: Asthma Stated Complaint: sob Time Seen by Provider: 09/16/23 04:44 History of Present Illness: 33-year-old female presents to the emerg ency department stating that she has a history of asthma. She states that the weather makes her asthma flareup. She states she has been coughing and lately has been coughing up phlegm but states this is specifically due to her asthma as it happens all the time. She states she is almost out of her albuterol inhaler and also needs a work note. She states she is not short of breath at present she denies chest pain fevers chills or night sweats. Associated symptoms: Reports productive cough Review of Systems General: Reports: 10 or more systems reviewed and unremarkable except in HPI and below Resp: Reports: productive cough and wheezing [facility] ED PFSH: Medical History Marijuana use, episodic Alcohol use disorder, severe, dependence Cigarette nicotine dependence Chronic post-traumatic stress disorder Bipolar II disorder, most recent episode hypomanic moderate severity with mixed features Psychiatric care Asthma Surgical History History of laparoscopic cholecystectomy History of tonsillectomy and adenoidectomy Hx of colonoscopy AGE 18 No significant past surgical history Social History Smoking and tobacco/nicotine status: current every day tobacco/nicotine user Alcohol intake: current Alcohol intake frequency: holidays/special occasions only Physical Exam Narrative: EXAM NARRATIVE: Constitutional: the patient appears well nourished and of normal development. Vital signs as documented. No acute distress at present. Alert and oriented-to person, place, time and situation. Head, eyes, ears, nose, mouth, throat: Normocephalic, atraumatic. Pupils-equal, round, reactive to light. No scleral icterus. Normal-appearing external ears. Normal appearing nasal turbinates, no drainage. No obvious oral lesions, posterior oropharynx without erythema or exudates. Neck: Supple, trachea is midline, no lymphadenopathy, no jugular venous distension, thyromegaly, or carotid bruits. Carotid upstrokes are brisk bilaterally. Lungs: clear to auscultation to all lung chamorro. Symmetrical rise and fall of chest, no obvious signs of increased work of breathing at present. Cardiac: Regular rate and rhythm, positive S1, S2. No murmurs, rubs or gallops that I can appreciate Abdomen: Soft, non-tender to palpation, normal active bowel sounds to all quadrants. No palpable masses, no organomegaly and abdominal bruits. Extremities: 2+ pulses in the upper extremities that are equal bilaterally, 2+ pulses in the lower extremities that are equal bilaterally. Non-edematous. Moves all extremities well, sensation to all extremities are noted. Skin: Warm, dry, intact. Course Vital Signs: Vital signs: Vital Signs Temperature 98.1 F 09/16/23 04:43 Pulse Rate 82 09/16/23 05:50 Respiratory Rate 16 09/16/23 04:43 Blood Pressure 123/96 09/16/23 05:50 Pulse Oximetry 95 09/16/23 05:50 Oxygen Delivery Me thod Room Air 09/16/23 05:50 MDM - Asthma Medical Decision Making Physical exam completed and documented I did offer the patient influenza and COVID swab as well as a chest x-ray at present she is stated that she does not feel she needs that. I did advise her I would send her a prescription for albuterol inhaler as well as steroids and Tessalon Perles for her cough to her pharmacy and she did agree to that. She states she can follow-up with her primary care provider as needed. I will provide her a work note for today and have her follow-up as needed with her primary care provider. Medical Records I reviewed the patient's medical records. No radiology studies performed this visit Discharge Plan Discharge Patient Disposition: Home Clinical Impression: Asthma exacerbation attacks, Cough Condition: Stable Prescriptions: New albuterol sulfate 90 mcg/actuation HFA aerosol inhaler 2 inh inhalation Q6H PRN (Reason: shortness of breath or wheezing) Qty: 8.5 0RF prednisone 20 mg tablet 40 mg PO DAILY 5 Days Qty: 10 0RF No Action albuterol sulfate 90 mcg/actuation HFA aerosol inhaler 2 inh INHALATION Q4H PRN (Reason: shortness of breath or wheezing) Qty: 18 0RF thiamine mononitrate (vit B1) [Vitamin B-1 (mononitrate)] 100 mg Tablet 100 mg PO DAILY 30 Days Qty: 30 1RF naltrexone 50 mg tablet 50 mg PO DAILY 30 Days Qty: 30 1RF olanzapine 5 mg tablet 5 mg PO BEDTIME 30 Days Qty: 30 1RF fluticasone propionate 50 mcg/actuation spray,suspension 1 spray INTRANASAL DAILY Discharge Orders: Discharge ED (Routine); Ordered 09/16/23 Ordered By: Vern Ramesh Referrals: Shima Tavarez, CAR FERRIER [Primary Care Provider] - Discharge Diet: Usual diet Discharge Activity: Resume usual activity Patient Instructions: Opioid Safety, Pain Management Activity Restrictions/Additional Instructions: Activity Restrictions/Additional Instructions: Thank you for choosing [facility] for your healthcare needs today. Please realize that you were seen in the Emergency Department and that we are providing you with an emergency medical screening exam and this may not be a complete and all inclusive of all the testing and or medical work-up that you may need to determine your ailment or severity of your illness. It is very important that you follow-up as instructed with your Primary care provider or Specialist for additional evaluation and to discuss your medical treatment plan. You may return to the Emergency Department should you have concerns or if your condition changes or worsens in any way. Coding Level of Care Code ED Color Paste Mixer for Ko Cabrera
[2023-09-16 05:50] VITALS: BP 123/96; PULSE 82; O2SAT 95
[2023-09-16 06:18] VITALS: BP 134/97; PULSE 84; O2SAT 95
== END 2023-09-16 06:11 | disposition home or self-care (01) ==
PROVIDERS: Emergency Provider Internal Medicine; PCP Nurse Practitioner Family
DX: J45.901 Unspecified asthma with (acute) exacerbation (principal); R05.9 Cough, unspecified; Z72.0 Tobacco use
CPT/HCPCS: 99283

== ENCOUNTER 2023-09-24 21:29 | Emergency (ER) | payer MEDICAID, SELFPAY ==
--- NOTE | 2023-09-24 21:31 | XRR_ITS ---
PROCEDURE INFORMATION: Exam: XR Left Knee Exam date and time: 09/24/2023 9:35 PM Age: 33 years old Clinical indication: Right; Patient HX: RT knee pain post fall; Obvious deformity TECHNIQUE: Imaging protocol: Radiologic exam of the left knee. Views: 3 views. COMPARISON: CR XR ankle LT min 3V* [id number] 11/30/2021 10:57 AM FINDINGS: Bones/joints: Posterior dislocation of the femur relative to the tibia, negative for fracture visualized. Soft tissues: Normal. XR/XR knee LT 3V* [id number] IMPRESSION: Posterior dislocation of the femur relative to the tibia, negative for fracture visualized.
[2023-09-24 21:32] VITALS: BP 110/78; PULSE 77; RESP 18; TEMP 36.6; O2SAT 96; BMI 41.5
[2023-09-24] MEDS: ondansetron 2 mg/ML SDV 2 mL 4 MG IVP (21:42)
[2023-09-24 21:43] VITALS: RESP 22; O2SAT 93
[2023-09-24] MEDS: fentaNYL 50 mcg/mL INJ 2mL 100 MCG IVP (21:43)
[2023-09-24 21:46] VITALS: BP 110/78; PULSE 84; RESP 16; O2SAT 93
[2023-09-24 22:25] VITALS: RESP 18; O2SAT 100
[2023-09-24] MEDS: HYDROmorphone 1 mg/mL INJ 1 mL IVP ×2 (22:25→23:38)
[2023-09-24] MEDS: sodium chloride 0.9% 1,000 ML 999 ML IV (22:25)
[2023-09-24 23:20] VITALS: BP 117/77; PULSE 84; RESP 20; O2SAT 100
[2023-09-24 23:38] VITALS: RESP 20; O2SAT 100
--- NOTE | 2023-09-25 00:10 | XRR_ITS ---
PROCEDURE INFORMATION: Exam: XR Left Knee Exam date and time: 09/25/2023 12:12 AM Age: 33 years old Clinical indication: Injury or trauma; Fall; Dislocation; Patella or knee; Left; Patient HX: Check S/P reduction; Additional info: Post reduction TECHNIQUE: Imaging protocol: Radiologic exam of the left knee. Views: 1 or 2 views. COMPARISON: CR (LOW EXM, ) 09/24/2023 9:35 PM FINDINGS: Bones/joints: Reduction of previously seen knee dislocation with normal anatomic alignment, negative for fracture. Soft tissues: Normal. XR/XR knee LT 1-2V [id number] IMPRESSION: Reduction of previously seen knee dislocation with normal anatomic alignment, negative for fracture.
[2023-09-25] MEDS: propofol 10 mg/mL SDV 20 mL 200 MG IVP (00:18)
[2023-09-25 00:22] VITALS: BP 115/83; PULSE 89; RESP 18; O2SAT 100
--- NOTE | 2023-09-25 00:27 | PC.NURSE ---
remaining 110 mg (11mL) propofol wasted with Moris Castillo RN.
[2023-09-25 00:28] VITALS: BP 128/68; PULSE 93; RESP 16; O2SAT 98
[2023-09-25 00:35] VITALS: BP 105/84; PULSE 102; RESP 16; O2SAT 98
[2023-09-25 01:34] VITALS: BP 105/84; PULSE 102; RESP 16; TEMP 36.6; O2SAT 98
--- NOTE | 2023-09-25 02:11 | W.ED.FALL ---
HPI - Fall General: Chief Complaint: Fall Stated Complaint: FALL Time Seen by Provider: 09/24/23 21:39 History of Present Illness: 33-year-old female who was mildly intoxicated this evening. She fell on her left lower extremity. She experienced significant pain with deformity to her left knee. Associated symptoms-after fall: Denies abdominal pain or chest pain Review of Systems Const: Denies: fever(s) Card: Denies: chest pain Resp: Denies: dyspnea GI: Denies: abdominal pain or vomiting PFSH ED PFSH: Medical History Marijuana use, episodic Alcohol use disorder, severe, dependence Cigarette nicotine dependence Chronic post-traumatic stress disorder Bipolar II disorder, most recent episode hypomanic moderate severity with mixed features Psychiatric care Asthma Surgical History History of laparoscopic cholecystectomy History of tonsillectomy and adenoidectomy Hx of colonoscopy AGE 18 No significant past surgical history Social History Smoking and tobacco/nicotine status: current every day tobacco/nicotine user Alcohol intake: current Alcohol intake frequency: holidays/special occasions only Physical Exam Const: COMMON NORMALS: no acute distress HENMT: COMMON NORMALS: normocephalic, atraumatic and Normal external nose present HEAD & SCALP: normocephalic and atraumatic NOSE: Normal external nose present Eye: COMMON NORMALS: Equal, round and reactive pupils present and EOMs intact bilaterally PUPIL: Yes Equal, round and reactive pupils present Chest: CHEST: Yes Symmetrical chest wall rise Resp: COMMON NORMALS: normal respiratory effort and No use of accessory muscles Cardio: COMMON NORMALS: regular rate and regular rhythm RATE: regular rate RHYTHM: regular rhythm GI: INSPECTION: Yes normal to inspection Back/Pelvis: OTHER: abrasion post left buttock Extremity: NARRATIVE EXTREMITY EXAM: Examination of the left lower extremity reveals significant deformity of the left knee with back knee appearance. There is swelling and significant tenderness present. Pulses palpable. Capillary refill is normal. Neuro: MARK COMA SCALE: document GCS findings Mark coma scale eye opening: Spontaneous Mark coma scale verbal response: Orientated Mark coma scale motor response: Obey commands [place] coma scale total score: 15 Psych: COMMON NORMALS: mental status grossly normal Skin: NARRATIVE SKIN EXAM: see above Procedures Orthopedic Joint Reduction Joint #1: Time Out Performed: Yes Side: left Joint Reduction Location: knee/patella Analgesia: procedural sedation Technique used: traction/counter-traction and direct manipulation Post-reduction neuro exam: intact Post-reduction vascular: intact Post Reduction X-Ray Obtained: Yes Post Reduction X-Ray Results: reduced Splint Applied: Yes Patient Tolerated Procedure: well and no complications Procedural Sedation Indication: fracture/dislocation reduction ASA Class: II Preparation: media monitor applied, pulse oximeter, supplemental O2 applied, suction/airway equipment at bedside and IV secured IV Propofol dose (mg): 90 Complications: none Course Vital Signs: Vital signs: Vital Signs Temperature 97.9 F 09/25/23 01:34 Pulse Rate 102 H 09/25/23 01:34 Respiratory Rate 16 09/25/23 01:34 Blood Pressure 105/84 09/25/23 01:34 Pulse Oximetry 98 09/25/23 01:34 Oxygen Delivery Me thod Room Air 09/25/23 00:35 MDM - Fall Medical Decision Making Posterior knee dislocation reduced without complication using conscious sedation. Knee immobilizer placed. Crutches for weightbearing until she can weight-bear in her knee immobilizer as tolerated. Orthopedics follow-up. Return for new symptoms. Lab Data Radiology Impressions Knee X-Ray 09/25/23 00:10 IMPRESSION: Reduction of previously seen knee dislocation with normal anatomic alignment, negative for fracture. All radiology interpretation(s) finalized by discharge Discharge Plan Discharge Patient Disposition: Home Clinical Impression: Closed dislocation of left knee Condition: Stable Prescriptions: New Percocet 7.5-325 mg tablet 1 tab PO Q6H PRN (Reason: pain) Qty: 10 0RF No Action albuterol sulfate 90 mcg/actuation HFA aerosol inhaler 2 inh INHALATION Q4H PRN (Reason: shortness of breath or wheezing) Qty: 18 0RF thiamine mononitrate (vit B1) [Vitamin B-1 (mononitrate)] 100 mg Tablet 100 mg PO DAILY 30 Days Qty: 30 1RF naltrexone 50 mg tablet 50 mg PO DAILY 30 Days Qty: 30 1RF olanzapine 5 mg tablet 5 mg PO BEDTIME 30 Days Qty: 30 1RF fluticasone propionate 50 mcg/actuation spray,suspension 1 spray INTRANASAL DAILY albuterol sulfate 90 mcg/actuation HFA aerosol inhaler 2 inh inhalation Q6H PRN (Reason: shortness of breath or wheezing) Qty: 8.5 0RF Discharge Orders: Discharge ED (Routine); Ordered 09/25/23 Ordered By: Ruddy De La Cruz Referrals: Shima Tavarez ASSISTANT PROFESSOR SURGICAL TECHNOLOGY [Primary Care Provider] - Son Somers DO [Physician] - 4-7 days Patient Instructions: Knee Dislocation (ED), Knee Immobilizer (ED), Opioid Safety, Pain Management Activity Restrictions/Additional Instructions: You may weight-bear as tolerated in the knee immobilizer. Crutches otherwise. Ice frequently for pain and swelling. Pain medication for severe pain. Return for problems. Call orthopedics in the morning at the number listed above for follow-up appointment. Stand Alone Forms: Work/School Release Coding Level of Care Code ED Compliance Review Officer for Ko Cabrera
== END 2023-09-25 01:35 | disposition home or self-care (01) ==
PROVIDERS: Emergency Provider Emergency Medicine; PCP Nurse Practitioner Family
DX: S83.195A Other dislocation of left knee, initial encounter (principal); S30.810A Abrasion of lower back and pelvis, initial encounter; Z72.0 Tobacco use; W19.XXXA Unspecified fall, initial encounter
CPT/HCPCS: 27550; 73560; 73562; 96374; 96375; 96376; 99285; E0114; J1170; J2405; J2704; J3010; J7030

== ENCOUNTER → 2023-09-26 16:32 | Outpatient (BNVA) | payer MEDICAID, SELFPAY | PROVIDERS: PCP Nurse Practitioner Family; Referring Provider Emergency Medicine; Visit Provider Orthopaedic Surgery | DX: S83.105A Unspecified dislocation of left knee, initial encounter (principal); X58.XXXA Exposure to other specified factors, initial encounter | CPT/HCPCS: 73562 ==

== ENCOUNTER 2023-10-03 08:46 | Outpatient (CLI) | payer MEDICAID, SELFPAY ==
--- NOTE | 2023-10-03 09:00 | CT_ITS ---
WS: [id number] Noncontrast CT LEFT KNEE TECHNIQUE: Noncontrast CT LEFT knee with coronal and sagittal reformatted images. CLINICAL INFORMATION: M25.562 - Pain in left knee COMPARISON: None. DLP: 399.[address] scans at [facility] use at least one of these dose optimization techniques: automated e xposure control; mA and/or kV adjustment per patient size (includes targeted exams where dose is matc hed to clinical indication); or iterative reconstruction. FINDINGS: Moderate suprapatellar effusion. Lateral subluxation of the patella with shallow trochlear groove. No definite visualized patella fractures. 2 or 3 tiny osseous fragments in the suprapatellar bursa jayme g the medial femoral condyle. Small anterior medial femoral condyle fracture with slight fragmentatio n. ACL and PCL difficult to visualize with fluid in the popliteal fossa. Recommend further evaluation with MRI. Recommend CTA or ultrasound of the popliteal fossa for evaluation of popliteal artery inte grity considering recent tibiofemoral dislocation. No other visualized fractures. Normal tibial plateau. IMPRESSION: 1. Moderate suprapatellar effusion with lateral subluxation of the patella. Recommend correlation fo r patellar instability. Somewhat shallow trochlear groove. 2. ACL and PCL difficult to visualize. Recommend further evaluation with MRI for better anatomic det ail. 3. Edema in the popliteal fossa. Recommend CTA or ultrasound for evaluation of the popliteal artery considering recent dislocation. 4. Contusion with slightly fragmented fracture involving the anteromedial femoral condyle. A few dis placed tiny fragments in the suprapatellar bursa. 5. No other visualized fractures.
== END 2023-10-03 08:47 | disposition home or self-care (01) ==
LOC: RAD 08:46
PROVIDERS: PCP Nurse Practitioner Family; Visit Provider Orthopaedic Surgery
DX: M25.462 Effusion, left knee (principal); S83.012A Lateral subluxation of left patella, initial encounter; S72.432A Displaced fracture of medial condyle of left femur, initial encounter for closed fracture; X58.XXXA Exposure to other specified factors, initial encounter; R60.0 Localized edema
CPT/HCPCS: 73700

== ENCOUNTER 2023-10-11 14:26 | Outpatient (CLI) | payer MEDICAID, SELFPAY ==
--- NOTE | 2023-10-11 14:30 | MR_ITS ---
WS: [id number] MRI LEFT KNEE NONCONTRAST TECHNIQUE: Axial PD, coronal PD fat sat, coronal PD, sagittal PD, and sagittal PD fat-sat images obta ined. CLINICAL INFORMATION: knee pain COMPARISON: CT 10/03/2023 FINDINGS: Distal quadriceps and patella tendons are intact. Moderate suprapatellar effusion. Diffuse soft tissu e edema about the knee. Posttraumatic findings of recent femorotibial dislocation. Diffuse edema in t he popliteal fossa. Contusion with bony fragmentation involving the anterior medial femoral condyle w ith a few displaced fragments in the suprapatellar bursa also seen on the recent CT. Additional edema and contusion with tiny hairline fracture involving the anterior medial tibial plateau. No significa nt depression. High-grade complete tear of the ACL. High-grade tear of the PCL. No normal ACL fibers visualized. A f ew normal PCL fibers visualized along the tibial attachment. No acute appearing meniscal tears. Perip heral extrusion of the lateral meniscus. Fibula head appears intact. Moderate chondromalacia patella. Somewhat shallow trochlear groove. Recommend correlation for patellar instability. Medial and latera l patellar retinaculum appear grossly intact. No visualized patella fractures. Normal medial collateral ligament. Partial tear involving the lateral collateral ligament with fluid and edema. Partial tear involving the popliteus with surrounding fluid and a small amount of intrasub stance signal abnormality distally. Fluid and edema about the fibular head which appears intact. Rudolph mmend correlation for posterolateral corner injury. Normal popliteal artery flow void. Popliteal artery could be further evaluated with CTA or ultrasound considering recent dislocation. IMPRESSION: 1. Sequelae of recent femorotibial dislocation with posterior dislocation of the femur relative to t he tibia. This has been reduced with normal alignment today. 2. High-grade tears of the ACL and PCL. 3. Partial tear of the lateral collateral ligament and popliteus. Fibula head appears intact. Small amount of fluid and edema about the fibular head. Recommend correlation for posterolateral corner inj ury. 4. Moderate subpatellar effusion. 5. Contusion with fragmentation of the anterior medial femoral condyle with displaced fragments into the suprapatellar bursa. 6. Tiny hairline fracture involving the adjacent medial tibial plateau with associated edema. No sig nificant depression. 7. Somewhat shallow trochlear groove. Moderate chondromalacia patella. Recommend correlation for pat ellar instability. 8. Moderate suprapatellar effusion with diffuse soft tissue edema about the knee. 9. Normal popliteal artery flow void. Popliteal artery could be further evaluated with CTA or ultras ound considering recent dislocation. Outbridge grading: grade II: blister-like swelling/fraying of articular cartilage extending to surfac e
== END 2023-10-11 14:27 | disposition home or self-care (01) ==
LOC: RAD 14:26
PROVIDERS: PCP Nurse Practitioner Family; Visit Provider Orthopaedic Surgery
DX: S83.115A Anterior dislocation of proximal end of tibia, left knee, initial encounter (principal); S83.512A Sprain of anterior cruciate ligament of left knee, initial encounter; S83.522A Sprain of posterior cruciate ligament of left knee, initial encounter; S83.422A Sprain of lateral collateral ligament of left knee, initial encounter; S82.142A Displaced bicondylar fracture of left tibia, initial encounter for closed fracture; X58.XXXA Exposure to other specified factors, initial encounter; M22.42 Chondromalacia patellae, left knee
CPT/HCPCS: 73721

== ENCOUNTER 2023-10-13 15:51 | Emergency (ER) | payer MEDICAID, SELFPAY ==
[2023-10-13 15:52] VITALS: BP 158/100; PULSE 78; RESP 14; TEMP 36.8; O2SAT 95
--- NOTE | 2023-10-13 16:17 | ED_ITS ---
HPI - Extremity Injury (Lower) General: Chief Complaint: Extremity Injury, Lower Stated Complaint: numbness left leg Time Seen by Provider: 10/13/23 16:11 Source: patient Mode of arrival: ambulatory Limitations: no limitations History of Present Illness: Patient is a 33-year-old female who presents to ED today requesting a refill on pain medications for her left knee injury. Patient was initially seen here on 09/25 after a left knee injury where she dislocated her patella. Patient followed up with orthopedics/Dr. Voss the following day and had complained of some numbness and tingling to the leg. His concern was possible nerve injury as well as a multi ligamentous injury. He referred her for specialty orthopedic evaluation in [place] as well as ordering CTs and MRIs of her knee. She has completed both of these images. Most recently her MRI was completed 2 days ago showing: IMPRESSION: 1. Sequelae of recent femorotibial disl ocation with posterior dislocation of the femur relative to the tibia. This has been reduced with normal alignment today. 2. High-grade tears of the ACL and PCL. 3. Partial tear of the lateral collater al ligament and popliteus. Fibula head appears intact. Small amount of fluid and edema about the fibular head. Recommend correlation for posterolateral corner injury. 4. Moderate subpatellar effusion. 5. Contusion with fragmentation of the anterior medial femoral condyle with displaced fragments into the suprapatellar bursa. 6. Tiny hairline fracture involving the adjacent medial tibial plateau with associated edema. No significant depression. 7. Somewhat shallow trochlear groove. M oderate chondromalacia patella. Recommend correlation for patellar instability. 8. Moderate suprapatellar effusion with diffuse soft tissue edema about the knee. 9. Normal popliteal artery flow void. P opliteal artery could be further evaluated with CTA or ultrasound considering recent dislocation. Outbridge grading: grade II: blister-like swelling/fraying of articular cartilage extending to surface Patient states she was finally contacted by [facility] orthopedics in [place] and has an appointment with them this Monday 10/16. Patient states she tried to contact Dr. Voss for additional pain medication but was told she was no longer his active patient. Patient arrives today in her knee immobilizer and nonweightbearing. MD complaint: knee injury Onset (ago): week(s) Injury: Left: knee Place: home Severity: severe Severity scale (1-10): 10 Relieving factors: immobilization Exacerbating factors: weight bearing, movement and palpation Associated symptoms: Reports inability to bear weight Other symptoms: none Review of Systems Const: Denies: fever(s), chills, body aches, fatigue or malaise Card: Denies: chest pain Resp: Denies: dyspnea Musc: Reports: joint pain (L knee) and joint swelling (L knee) Neuro: Reports: numbness in extremities (L lower leg) PFSH ED PFSH: Medical History Marijuana use, episodic Alcohol use disorder, severe, dependence Cigarette nicotine dependence Chronic post-traumatic stress disorder Bipolar II disorder, most recent episode hypomanic moderate severity with mixed features Psychiatric care Asthma Surgical History History of laparoscopic cholecystectomy History of tonsillectomy and adenoidectomy Hx of colonoscopy AGE 18 No significant past surgical history Social History Smoking and tobacco/nicotine status: current every day tobacco/nicotine user Alcohol intake: current Alcohol intake frequency: holidays/special occasions only Physical Exam Const: COMMON NORMALS: patient oriented x3, no limitations, alert and well nourished GENERAL APPEARANCE: cooperative and in distress (in pain-tearful at times) Extremity: GENERAL: Yes normal exam except as noted LEFT LOWER EXTREMITY: Yes knee joint (significant pain/swelling) Left knee: Yes ROM (not performed due to pain and known MRI findings) and Yes neurovascular exam (DP/PT pulses easily felt; normal cap refill) Neuro: COMMON NORMALS: patient oriented x3 SENSORIUM/ORIENTATION: Yes alert Course Vital Signs: Vital signs: Vital Signs Temperature 98.2 F 10/13/23 15:52 Pulse Rate 78 10/13/23 15:52 Respiratory Rate 14 10/13/23 15:52 Blood Pressure 158/100 10/13/23 15:52 Pulse Oximetry 95 10/13/23 15:52 Oxygen Delivery Me thod Room Air 10/13/23 15:52 MDM - Extremity Injury (Lower) Medical Decision Making Patient's recent MRI was reviewed. She certainly has every reason to require opiate pain medication given the extensiveness of her knee injury. She seemingly has been doing everything correctly as far as obtaining outpatient imaging and contacting [facility] to ensure referral was received and scheduling. She does have an upcoming appointment with them on Monday 10/16. She will be provided pain medications to last her until that appointment. Differential Diagnosis Likely acute internal derangement of knee Medical Records I reviewed the patient's medical records. No radiology studies performed this visit Discharge Plan Discharge Patient Disposition: Home Clinical Impression: Internal derangement of left knee Condition: Stable Prescriptions: New hydrocodone-acetaminophen 5-325 mg tablet 1 tab PO Q6H PRN (Reason: pain) Qty: 14 0RF Discontinued oxycodone-acetaminophen 7.5-325 mg tablet 1 tab PO Q6H PRN (Reason: pain) 7 Days Qty: 28 0RF No Action Eliquis 2.5 mg tablet 2.5 mg PO BID 30 Days Qty: 60 0RF albuterol sulfate 90 mcg/actuation HFA aerosol inhaler 2 inh INHALATION Q4H PRN (Reason: shortness of breath or wheezing) Qty: 18 0RF thiamine mononitrate (vit B1) [Vitamin B-1 (mononitrate)] 100 mg Tablet 100 mg PO DAILY 30 Days Qty: 30 1RF naltrexone 50 mg tablet 50 mg PO DAILY 30 Days Qty: 30 1RF olanzapine 5 mg tablet 5 mg PO BEDTIME 30 Days Qty: 30 1RF fluticasone propionate 50 mcg/actuation spray,suspension 1 spray INTRANASAL DAILY albuterol sulfate 90 mcg/actuation HFA aerosol inhaler 2 inh inhalation Q6H PRN (Reason: shortness of breath or wheezing) Qty: 8.5 0RF Discharge Orders: Discharge ED (Routine); Ordered 10/13/23 Ordered By: Carisa Dudley Referrals: Shima Tavarez, T[employer]ER [Primary Care Provider] - Patient Instructions: Opioid Safety, Pain Management Activity Restrictions/Additional Instructions: As we discussed please follow-up with your orthopedic surgeon at [facility] on 10/16 as scheduled. Coding Level of Care Code ED Food Science Technician for Ko Cabrera
[2023-10-13 16:35] VITALS: PULSE 78; RESP 14; O2SAT 95
== END 2023-10-13 16:39 | disposition home or self-care (01) ==
PROVIDERS: Emergency Provider Physician Assistant; PCP Nurse Practitioner Family
DX: M23.92 Unspecified internal derangement of left knee (principal); Z72.0 Tobacco use
CPT/HCPCS: 99283

== ENCOUNTER 2023-11-07 13:50 | Emergency (ER) | payer MEDICAID, SELFPAY ==
[2023-11-07 14:03] VITALS: BP 145/95; PULSE 78; RESP 16; TEMP 36.8; O2SAT 97
--- NOTE | 2023-11-07 15:44 | PC.PHAR ---
PT CURRENTLY ONLY TAKING 4 MEDICATIONS: ALBUTEROL HFA INHALER, FLONASE 50MCG, NAPROXEN 500MG, AND THIAMINE (B1). 11/07/23
--- NOTE | 2023-11-07 16:12 | W.ED.GENADLT ---
Documented by User: BRIGIDO Sewell 11/07/23 16:16 HPI - General Adult General: Chief complaint: General Medical Stated complaint: sweats, N, lump under right arm pit Time Seen by Provider: 11/07/23 15:33 Source: patient Mode of arrival: ambulatory Limitations: no limitations History of Present Illness: Patient is a 33-year-old female presenting to the emergency department complaining of pain under her right armpit onset past few days. Patient notes using crutches for the past few months due to an ACL injury, for which she is about to undergo surgery. She notes that she has developed sudden sharp pain under the right armpit with associated swelling and redness. She denies any fever, though notes she has been nauseous and a little sweaty. She notes history of abscess under her armpit before. No other symptoms reported at this time. Associated symptoms: Deny chest pain, dyspnea, headache(s), nausea, rash, palpitations or vomiting Review of Systems General: Reports: 10 or more systems reviewed and unremarkable except in HPI and below Const: Denies: fever(s), chills or fatigue Eyes: Denies: change in vision ENMT: Denies: throat pain, ear or mastoid pain or nasal discharge Card: Denies: chest pain, palpitations, swelling of feet/ankles or lightheadedness Resp: Denies: dyspnea, productive cough or wheezing GI: Denies: abdominal pain, nausea, vomiting, diarrhea or constipation : Denies: flank pain, difficulty voiding, dysuria or urinary frequency Musc: Denies: neck pain, back pain or joint pain Skin/Breast: Reports: skin tenderness and new lesions; Denies: rash Neuro: Denies: headache(s), numbness in extremities or weakness in extremities PFSH ED PFSH: Medical History Marijuana use, episodic Alcohol use disorder, severe, dependence Cigarette nicotine dependence Chronic post-traumatic stress disorder Bipolar II disorder, most recent episode hypomanic moderate severity with mixed features Psychiatric care Asthma Surgical History History of laparoscopic cholecystectomy History of tonsillectomy and adenoidectomy Hx of colonoscopy AGE 18 No significant past surgical history Social History Smoking and tobacco/nicotine status: current every day tobacco/nicotine user Alcohol intake: current Alcohol intake frequency: holidays/special occasions only Physical Exam Const: COMMON NORMALS: no acute distress, patient oriented x3 and no limitations GENERAL APPEARANCE: cooperative, comfortable and well developed ORIENTATION/CONSCIOUSNESS: Yes awake, Yes oriented to person, Yes oriented to place and Yes oriented to time HENMT: COMMON NORMALS: normocephalic, atraumatic and hearing grossly normal bilaterally HEAD & SCALP: normocephalic and atraumatic Eye: COMMON NORMALS: Equal, round and reactive pupils present, EOMs intact bilaterally and conjunctivae normal CONJUNCTIVA: Yes conjunctivae normal PUPIL: Yes Equal, round and reactive pupils present Neck/C-Spine: COMMON NORMALS: full ROM, supple and no JVD Resp: COMMON NORMALS: normal respiratory effort, No retractions, No use of accessory muscles and clear to auscultation bilaterally AUSCULTATION: clear to auscultation bilaterally Cardio: COMMON NORMALS: no JVD, regular rate, regular rhythm, No clicks present (Cardio), No murmurs present (Cardio) and No rub (Cardio) RATE: regular rate RHYTHM: regular rhythm Extremity: COMMON NORMALS: normal to inspection, full ROM and capillary refill normal Neuro: COMMON NORMALS: patient oriented x3, moves all extremities, no focal motor deficits and no sensory deficits noted SENSORIUM/ORIENTATION: Yes oriented to person, Yes oriented to place and Yes oriented to time Psych: COMMON NORMALS: mental status grossly normal and Normal thought process present THOUGHT PROCESS: Normal thought process present Skin: NARRATIVE SKIN EXAM: Area of fluctuance in the right axilla, that expresses some purulent drainage upon probing. Minimal surrounding cellulitis. Procedures Abscess I/D Site: upper extremity Side (if applicable): right Sedation/analgesia: none Local Anesthetic: lidocaine 2% and with epi Amount of anesthesia used (mL): 0.5 Technique: needle aspiration Irrigation: No Packing used?: none Course Vital Signs: Vital signs: Vital Signs Temperature 98.3 F 11/07/23 14:03 Pulse Rate 53 L 11/07/23 16:31 Respiratory Rate 16 11/07/23 14:03 Blood Pressure 159/102 11/07/23 16:31 Pulse Oximetry 96 11/07/23 16:31 MDM - General Adult Medical Decision Making This patient was seen and evaluated due to a lesion on her right axilla. On arrival patient's vitals normal. Exam showed what appeared to be an abscess in the right axilla that showed purulent drainage upon expression. I further cleaned the abscess with Betadine, injected with 0.5 mL of lidocaine and probed with a needle until all purulent material had been drained. Instructed the patient that I will treat her with Bactrim due to the surrounding cellulitis, and that she needs to avoid use of the crutches for the time being. Also educated on proper wound care as well as reasons to return such as further signs of infection. All other questions and concerns addressed at this time and return precautions are given. No radiology studies performed this visit Discharge Plan Discharge Patient Disposition: Home Clinical Impression: Abscess of axilla, right Condition: Stable Prescriptions: New Bactrim DS 800-160 mg tablet 1 tab PO DAILY 7 Days Qty: 7 0RF No Action thiamine mononitrate (vit B1) [Vitamin B-1 (mononitrate)] 100 mg Tablet 100 mg PO DAILY 30 Days Qty: 30 1RF fluticasone propionate 50 mcg/actuation spray,suspension 1 spray INTRANASAL DAILY albuterol sulfate 90 mcg/actuation HFA aerosol inhaler 2 inh inhalation Q6H PRN (Reason: shortness of breath or wheezing) Qty: 8.5 0RF naproxen 500 mg tablet 500 mg PO BID Discharge Orders: Discharge ED (Routine); Ordered 11/07/23 Ordered By: Jaylan Hess Referrals: Shima Tavarez, RN ACUTE [Primary Care Provider] - Discharge Diet: Usual diet Discharge Activity: Increase activity as tolerated Patient Instructions: Abscess (ED) Activity Restrictions/Additional Instructions: Bactrim. Plenty of fluids. Follow-up with primary care provider. Ibuprofen or Tylenol for any pain. Keep wound clean with antibacterial soap and water, however make sure it is dry. Return with any new or concerning symptoms you may have. Coding Level of Care Code ED Chemical Compounder Helper for Chg Rick Documented by User: Josias Guerra DO 11/08/23 05:55 HPI - General Adult General: Chief complaint: General Medical Stated complaint: sweats, N, lump under right arm pit Time Seen by Provider: 11/07/23 15:33 PFSH ED PFSH: Medical History Marijuana use, episodic Alcohol use disorder, severe, dependence Cigarette nicotine dependence Chronic post-traumatic stress disorder Bipolar II disorder, most recent episode hypomanic moderate severity with mixed features Psychiatric care Asthma Surgical History History of laparoscopic cholecystectomy History of tonsillectomy and adenoidectomy Hx of colonoscopy AGE 18 No significant past surgical history Social History Smoking and tobacco/nicotine status: current every day tobacco/nicotine user Alcohol intake: current Alcohol intake frequency: holidays/special occasions only Course Vital Signs: Vital signs: Vital Signs Temperature 98.3 F 11/07/23 14:03 Pulse Rate 53 L 11/07/23 16:31 Respiratory Rate 16 11/07/23 14:03 Blood Pressure 159/102 11/07/23 16:31 Pulse Oximetry 96 11/07/23 16:31 MDM - General Adult Medical Decision Making This patient was seen and evaluated due to a lesion on her right axilla. On arrival patient's vitals normal. Exam showed what appeared to be an abscess in the right axilla that showed purulent drainage upon expression. I further cleaned the abscess with Betadine, injected with 0.5 mL of lidocaine and probed with a needle until all purulent material had been drained. Instructed the patient that I will treat her with Bactrim due to the surrounding cellulitis, and that she needs to avoid use of the crutches for the time being. Also educated on proper wound care as well as reasons to return such as further signs of infection. All other questions and concerns addressed at this time and return precautions are given. Chart reviewed Discharge Plan Discharge Patient Disposition: Home Clinical Impression: Abscess of axilla, right Condition: Stable Prescriptions: New Bactrim DS 800-160 mg tablet 1 tab PO DAILY 7 Days Qty: 7 0RF No Action thiamine mononitrate (vit B1) [Vitamin B-1 (mononitrate)] 100 mg Tablet 100 mg PO DAILY 30 Days Qty: 30 1RF fluticasone propionate 50 mcg/actuation spray,suspension 1 spray INTRANASAL DAILY albuterol sulfate 90 mcg/actuation HFA aerosol inhaler 2 inh inhalation Q6H PRN (Reason: shortness of breath or wheezing) Qty: 8.5 0RF naproxen 500 mg tablet 500 mg PO BID Discharge Orders: Discharge ED (Routine); Ordered 11/07/23 Ordered By: Jaylan Hess Referrals: Shima Tavarez, RN ACUTE [Primary Care Provider] - Discharge Diet: Usual diet Discharge Activity: Increase activity as tolerated Patient Instructions: Abscess (ED) Activity Restrictions/Additional Instructions: Bactrim. Plenty of fluids. Follow-up with primary care provider. Ibuprofen or Tylenol for any pain. Keep wound clean with antibacterial soap and water, however make sure it is dry. Return with any new or concerning symptoms you may have. Coding Level of Care Code ED Chemical Compounder Helper for Ko Cabrera
[2023-11-07 16:31] VITALS: BP 159/102; PULSE 53; O2SAT 96
== END 2023-11-07 16:30 | disposition home or self-care (01) ==
PROVIDERS: Emergency Provider Physician Assistant; PCP Nurse Practitioner Family
DX: L02.411 Cutaneous abscess of right axilla (principal); Z72.0 Tobacco use
CPT/HCPCS: 99283

== ENCOUNTER 2023-11-14 23:14 | Inpatient (IN) | payer MEDICAID, SELFPAY ==
[2023-11-14 23:15] VITALS: BP 132/104; PULSE 93; RESP 18; TEMP 37; O2SAT 96; BMI 42.9
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
[2023-11-14 23:38] LABS: Add Urine Microscopic? NO; Charge for UA Resulting for Rev
[2023-11-14 23:40] LABS: Bilirubin Urine Neg (Negative); Blood Urine Neg (Negative); Glucose Urine UA Norm (Normal); HCG Qualitative Urine. Negative (Negative); Ketones Urine Negative (Negative); Leukocyte Esterase Urine Negative (Negative); Nitrate Urine Negative (Negative); Protein Urine Neg (Negative); Urine Appearance Clear (CLEAR); Urine Color Yellow (Yellow); Urobilinogen Urine Neg (Negative); pH Urine 6 (5-7)
[2023-11-14 23:49] LABS: Amphetamines Screen Urine Negative (Negative); Barbiturates Screen Urine Negative (Negative); Benzodiazepines Screen Urine Positive (Negative); Cocaine Screen Urine Negative (Negative); Opiate Screen Urine Negative (Negative); PCP Screen Urine Negative (Negative); THC Screen Urine Negative (Negative)
[2023-11-14 23:52] LABS: Basophils # 0.1 10^3/uL (0.0-0.1); Basophils % 1.3 %; Eosinophils # 0.4 10^3/uL (0.0-0.8); Eosinophils % 6.5 %; Hematocrit 44.5 % (36-47); Lymphocytes # 2.6 10^3/uL (0.8-4.8); Lymphocytes % 42.8 %; Mean Corpuscular HGB Conc 34.4 g/dL (30-55); Mean Corpuscular Hemoglobin 31.4 pg (27-33); Mean Corpuscular Volume 91.4 fl (85-98); Monocytes # 0.4 10^3/uL (0.2-0.9); Neutrophils # 2.57 10^3/uL (1.8-7.7); Neutrophils % 43.1 %; Nucleated Red Blood Cells % 0 %; Platelet Count 297 10^3/cmm (157-399); Red Blood Count 4.87 10^6/uL (3.85-5.65); White Blood Count 5.98 10^3/uL (3.29-11.43)
[2023-11-15] VITALS (7 sets, daily range): BP systolic 107–148; BP diastolic 67–96; PULSE 62–97; RESP 16–17; TEMP 36.4–36.7; O2SAT 94–97
[2023-11-15 00:17] LABS: Acetaminophen < 5.0 ug/mL (10-30); Alanine Aminotransferase 38 U/L (0-33); Albumin Level 4.3 g/dL (3.5-5.2); Alcohol Level 189 mg/dL (0-10); Alkaline Phosphatase 83 U/L (35-105); Anion Gap 17.6 (5-19); Aspartate Amino Transferase 39 U/L (0-32); Blood Urea Nitrogen 4 mg/dL (6-20); Calcium 8.7 mg/dL (8.5-10.5); Carbon Dioxide 21 mmol/L (22-29); Chloride 107 mmol/L (98-107); Creatinine Clr Calc Pharmacy 141.0793; Globulin 3.2 g/dL (1.3-4.6); Glomerular Filtration Rate 96.4 mL/min (90-130); Glucose 105 mg/dL (65-115); Osmolality Calculated 291 mOsm/kg (285-295); Potassium 3.6 mmol/L (3.5-5.1); Salicylate < 0.3 mg/dL (3-10); Sodium 142 mmol/L (136-145); Total Bilirubin 0.3 mg/dL (0.15-1.2); Total Protein 7.5 g/dL (6.6-8.7)
[2023-11-15 00:24] LABS: Thyroid Stimulating Hormone 2.36 uIU/mL (0.27-4.20)
[2023-11-15] MEDS: hyDROXYzine 25 mg Capsule 50 MG PO (02:00)
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
[2023-11-15] MEDS: multivitamin therapeutic Tablet 1 TAB PO (08:59)
[2023-11-15] MEDS: thiamine 100 mg Tablet PO (08:59)
[2023-11-15] MEDS: folic acid 1 mg Tablet PO (08:59)
--- NOTE | 2023-11-15 11:12 | PC.NURSE ---
Patient's mother called. Patient said that patient has been drinking daily 5 to 6 years. Patient lives with her mother. Patient has disabilities and cannot take care of her daughter. Patient's mother states that patient throws a tantrum when she don't get her way and that she lashes out at her mother. Patient can't take this much longer. Patient doesn't think that she needs help for her drinking
[2023-11-15] MEDS: nicotine 21 mg Patch 1 PATCH TRANSDERMA (14:55)
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
--- NOTE | 2023-11-15 17:18 | PC.NURSE ---
Patient left AMA despite efforts from nursing staff to get patient to stay and go through the proper chain of discharge. Patient signed AMA paperwork and was picked up by mother at 1710.
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
== END 2023-11-15 17:10 | disposition home or self-care (01) | DRG 881 ==
LOC: ER 11-15 00:56 → NP 11-15 01:04
PROVIDERS: Admitting Provider Psychiatry & Neurology Psychiatry; Emergency Provider Internal Medicine; PCP Nurse Practitioner Family; Visit Provider Psychiatry & Neurology Psychiatry
DX: F32.A Depression, unspecified (principal); R45.851 Suicidal ideations; F41.9 Anxiety disorder, unspecified; F43.12 Post-traumatic stress disorder, chronic; F10.20 Alcohol dependence, uncomplicated; Z72.0 Tobacco use; Z91.410 Personal history of adult physical and sexual abuse
CPT/HCPCS: 36415; 80053; 80306; 80307; 81003; 81025; 84443; 85025; 96372; 97165; 99285

== ENCOUNTER 2023-11-18 18:11 | Emergency (ER) | payer MEDICAID, SELFPAY ==
[2023-11-18 18:12] VITALS: BP 140/99; PULSE 84; RESP 14; TEMP 36.7; O2SAT 96
[2023-11-18 19:54] LABS: Basophils # 0.1 10^3/uL (0.0-0.1); Basophils % 0.8 %; Eosinophils # 0.3 10^3/uL (0.0-0.8); Eosinophils % 2.8 %; Hematocrit 43.8 % (36-47); Lymphocytes # 2.1 10^3/uL (0.8-4.8); Lymphocytes % 20.6 %; Mean Corpuscular HGB Conc 33.8 g/dL (30-55); Mean Corpuscular Hemoglobin 31.6 pg (27-33); Mean Corpuscular Volume 93.4 fl (85-98); Mean Platelet Volume 10.1 fL (7.4-10.4); Monocytes # 0.6 10^3/uL (0.2-0.9); Monocytes % 5.9 %; Neutrophils # 7.01 10^3/uL (1.8-7.7); Neutrophils % 69.4 %; Nucleated Red Blood Cells % 0 %; Platelet Count 274 10^3/cmm (157-399); Red Blood Count 4.69 10^6/uL (3.85-5.65); Red Cell Distribution Width 13.2 % (12.1-15.1)
[2023-11-18 20:01] LABS: Add Urine Microscopic? YES; Bacteria Urine 1+ /hpf; Bilirubin Urine 1+ (Negative); Blood Urine Neg (Negative); Glucose Urine UA Norm (Normal); HCG Qualitative Urine. Negative (Negative); Ketones Urine 1+ (Negative); Leukocyte Esterase Urine Trace (Negative); Mucus Urine 2+ /hpf; Nitrate Urine Negative (Negative); Protein Urine Trace (Negative); RBC Urine 0-4 /hpf (0-2); Specific Gravity, Urine 1.015 (1.005-1.030); Squamous Epithelial Cell Urine 15-25 /hpf (0-5); Urine Appearance Hazy (CLEAR); Urine Color Yellow (Yellow); Urobilinogen Urine Neg (Negative); pH Urine 6 (5-7)
[2023-11-18 20:12] LABS: Alanine Aminotransferase 28 U/L (0-33); Albumin Level 4.3 g/dL (3.5-5.2); Alkaline Phosphatase 74 U/L (35-105); Anion Gap 14.2 (5-19); Aspartate Amino Transferase 28 U/L (0-32); Blood Urea Nitrogen 7 mg/dL (6-20); Carbon Dioxide 24 mmol/L (22-29); Chloride 105 mmol/L (98-107); Creatinine Clr Calc Pharmacy 195.2191; Glomerular Filtration Rate 142.1 mL/min (90-130); Glucose 96 mg/dL (65-115); Osmolality Calculated 286 mOsm/kg (285-295); Potassium 4.2 mmol/L (3.5-5.1); Sodium 139 mmol/L (136-145); Total Bilirubin 0.2 mg/dL (0.15-1.2); Total Protein 7.3 g/dL (6.6-8.7)
[2023-11-18 20:13] LABS: Alcohol Level < 10 mg/dL (0-10)
[2023-11-18 20:17] VITALS: BP 150/97; PULSE 85; RESP 17; O2SAT 97
[2023-11-18] MEDS: ondansetron 2 mg/ML SDV 2 mL 4 MG IVP (20:18)
[2023-11-18] MEDS: sodium chloride 0.9% 1,000 ML 999 ML IV (20:18)
--- NOTE | 2023-11-18 20:40 | ED_ITS ---
HPI - General Adult 2 General: Chief complaint: General Medical Stated complaint: Shot making her sick Time Seen by Provider: 11/18/23 18:49 History of Present Illness: Janie Medrano is a 33-year-old female that presents to the emergency department with complaints of feeling agitated, headache, body aches, backache. Patient reports onset of symptoms 3 days ago. Symptoms coincide with the administration of Vivitrol injection for alcohol abuse. Injection was given while she was a resident at inpatient psychiatric care. Patient ultimately signed out AMA. Patient reports last alcohol intake was 1 week ago. Associated symptoms: Deny chest pain, confusion, dyspnea, headache(s), malaise, nausea, rash, palpitations or vomiting Review of Systems 2 General: Reports: 10 or more systems reviewed and unremarkable except in HPI and below Const: Reports: fatigue and change in sleep pattern; Denies: fever(s), chills, change in appetite, change in weight or malaise Card: Denies: chest pain, palpitations, irregular heart rhythm, edema, dyspnea on exertion, orthopnea or leg pain with exertion Resp: Denies: dyspnea, productive cough, non-productive cough, wheezing, stridor or chest congestion GI: Denies: abdominal pain, nausea, vomiting, dysphagia, diarrhea, constipation, bloating, GI cramping or hematochezia : Reports: flank pain; Denies: difficulty voiding, dysuria, urinary frequency, urinary urgency, urinary hesitancy, oliguria or hematuria Musc: Denies: neck pain, back pain, extremity pain, joint pain, joint swelling, joint redness, joint warmth or muscle weakness Skin/Breast: Denies: rash, pruritus, erythema, photosensitivity or new lesions Neuro: Denies: headache(s), numbness in extremities, weakness in extremities, sensory changes, lack of coordination, difficulty walking, frequent falls, dizziness, confusion, Slurred speech present, difficulty communicating thoughts, seizure-like activity or involuntary movements Psych: Reports: anxiety, irritability and difficulty concentrating; Denies: suicidal ideation or homicidal ideation Endo: Denies: polyuria, polydipsia or tired all the time [place]/Lymph: Denies: easy bruising or easy bleeding PFSH ED 2 PFSH: Medical History Marijuana use, episodic Alcohol use disorder, severe, dependence Cigarette nicotine dependence Chronic post-traumatic stress disorder Bipolar II disorder, most recent episode hypomanic moderate severity with mixed features Psychiatric care Asthma Surgical History History of laparoscopic cholecystectomy History of tonsillectomy and adenoidectomy Hx of colonoscopy AGE 18 No significant past surgical history Social History Smoking and tobacco/nicotine status: current every day tobacco/nicotine user Alcohol intake: current Alcohol intake frequency: holidays/special occasions only Physical Exam 2 Const: COMMON NORMALS: no acute distress, patient oriented x3 and alert G ENERAL APPEARANCE: cooperative ORIENTATION/CONSCIOUSNESS: Yes awake, Yes oriented to person, Yes oriented to place and Yes oriented to time HENMT: COMMON NORMALS: normocephalic and atraumatic HEAD & SCALP: n ormocephalic and atraumatic FACE & SINUS: normal facial exam MOUTH: Normal oral and palatal mucosa present THROAT: posterior oropharynx normal Eye: COMMON NORMALS: Equal, round and reactive pupils present, EOMs intact bilaterally, conjunctivae normal and no scleral icterus GENERAL EYE: a ppearance normal, both eyes and all related structures ALIGNMENT: Yes alignment normal PERIORBITAL: periorbital findings normal CONJUNCTIVA: Yes conjunctivae normal PUPIL: Yes Equal, round and reactive pupils present Neck/C-Spine: COMMON NORMALS: full ROM GENERAL: Yes normal visual inspection Lymph: LYMPHATIC: no lymphadenopathy noted Chest: COMMONS NORMALS: normal inspection of the chest Breast/axilla inspection: Yes no chest deformity, asymmetry, normal contours, no nodules, masses, tenderness Resp: COMMON NORMALS: normal respiratory effort, No retractions, No use of accessory muscles and clear to auscultation bilaterally EFFORT & INSPECTION: Yes able to speak in complete sentences and Yes symmetric chest movement A USCULTATION: clear to auscultation bilaterally Cardio: COMMON NORMALS: regular rate, regular rhythm and Peripheral pulses 2+ throughout RATE: regular rate RHYTHM: regular rhythm PERIPHERAL PULSES: Peripheral pulses 2+ throughout GI: COMMON NORMALS: Normal to inspection, nondistended, normoactive bowel sounds present, Soft to palpation, non-tender and No hepatosplenomegaly present INSPECTION: Yes normal to inspection AUSCULTATION: Yes normoactive bowel sounds PALPATION: Yes Soft to palpation and Yes No hepatosplenomegaly present RECTAL EXAM: deferred Extremity: COMMON NORMALS: normal to inspection GENERAL: Yes normal exam except as noted Neuro: COMMON NORMALS: patient oriented x3 SENSORIUM/ORIENTATION: Yes alert, Yes oriented to person, Yes oriented to place and Yes oriented to time CRANIAL NERVES: Yes CN normal except as noted Psych: COMMON NORMALS: mental status grossly normal, Normal thought process present, cooperative, activity/motor behavior normal, denies homicidal ideation and denies suicidal ideation THOUGHT PROCESS: Normal thought process present Skin: COMMON NORMALS: no rashes or lesions noted, no wounds and turgor normal GENERAL SKIN EXAM: no rashes or lesions noted and turgor normal Course 2 Vital Signs: Vital signs: Vital Signs Temperature 98.1 F 11/18/23 18:12 Pulse Rate 85 11/18/23 20:17 Respiratory Rate 17 11/18/23 20:17 Blood Pressure 150/97 11/18/23 20:17 Pulse Oximetry 97 11/18/23 20:17 Oxygen Delivery Me thod Room Air 11/18/23 20:17 MDM - General Adult Medical Decision Making Patient evaluated in the emergency department today due to generally feeling poorly. Patient attributes her feelings to an injection she will received 1 week ago. Patient differential diagnoses include urinary tract infection, pyelonephritis, respiratory illness, alcohol withdrawal, medication side effect. Symptoms that she complains about included irritability, difficulty concentrating, intermittent blurry vision, backache, abdominal discomfort, headache. The symptoms do coincide with use of Vivitrol but also it has been a week since she stopped drinking alcohol and symptoms began 3 days after her discontinued use. She is stable, calm, with normal vital signs. She is tearful during her visit but that appears to be from her recent relationship break-up. I did obtain a CBC CMP, urinalysis, blood alcohol level, urine test. We also included a influenza, COVID. Her urinalysis does reveal leukoesterase with bacteria, urine and white blood cells. I treated her with cephalexin. Going to discharge her home with antibiotics but also meds to help with nausea. Also going to give her a prescription of Vistaril. Patient needs to follow-up with her primary care doctor. She will return here for new, concerning, worsening symptoms Lab Data 11/18/23 19:47 11/18/23 19:47 Laboratory Results WBC 10.10 10^3/uL (3.29-11.43) 11/18/23 19:47 RBC 4.69 10^6/uL (3.85-5.65) 11/18/23 19:47 Hgb 14.80 g/dL (11.27-16.99) 11/18/23 19:47 Hct 43.8 % (36-47) 11/18/23 19:47 MCV 93.4 fl (85-98) 11/18/23 19:47 MCH 31.6 pg (27-33) 11/18/23 19:47 MCHC 33.8 g/dL (30-55) 11/18/23 19:47 RDW 13.2 % (12.1-15.1) 11/18/23 19:47 Plt Count 274 10^3/cmm (157-399) 11/18/23 19:47 MPV 10.1 fL (7.4-10.4) 11/18/23 19:47 Neut % (Auto) 69.4 % 11/18/23 19:47 Lymph % (Auto) 20.6 % 11/18/23 19:47 [place] % (Auto) 5.9 % 11/18/23 19:47 Eos % (Auto) 2.8 % 11/18/23 19:47 Baso % (Auto) 0.8 % 11/18/23 19:47 Neut # (Auto) 7.01 10^3/uL (1.8-7.7) 11/18/23 19:47 Lymph # (Auto) 2.1 10^3/uL (0.8-4.8) 11/18/23 19:47 [place] # (Auto) 0.6 10^3/uL (0.2-0.9) 11/18/23 19:47 Eos # (Auto) 0.3 10^3/uL (0.0-0.8) 11/18/23 19:47 Baso # (Auto) 0.1 10^3/uL (0.0-0.1) 11/18/23 19:47 Nucleated RBC % (auto) 0 % 11/18/23 19:47 Nucleated RBCs # 0.0 /100WBC 11/18/23 19:47 Sodium 139 mmol/L (136-145) 11/18/23 19:47 Potassium 4.2 mmol/L (3.5-5.1) 11/18/23 19:47 Chloride 105 mmol/L (98-107) 11/18/23 19:47 Carbon Dioxide 24 mmol/L (22-29) 11/18/23 19:47 Anion Gap 14.2 (5-19) 11/18/23 19:47 BUN 7 mg/dL (6-20) 11/18/23 19:47 Creatinine 0.5 mg/dL (0.5-0.9) 11/18/23 19:47 GFR Calculation 142.1 mL/min (90-130) H 11/18/23 19:47 Glucose 96 mg/dL (65-115) 11/18/23 19:47 Calculated Osmolality 286 mOsm/kg (285-295) 11/18/23 19:47 Calcium 9.0 mg/dL (8.5-10.5) 11/18/23 19:47 Total Bilirubin 0.2 mg/dL (0.15-1.2) 11/18/23 19:47 AST 28 U/L (0-32) 11/18/23 19:47 ALT 28 U/L (0-33) 11/18/23 19:47 Alkaline Phosphatase 74 U/L (35-105) 11/18/23 19:47 Total Protein 7.3 g/dL (6.6-8.7) 11/18/23 19:47 Albumin 4.3 g/dL (3.5-5.2) 11/18/23 19:47 Globulin 3.0 g/dL (1.3-4.6) 11/18/23 19:47 HCG, Qual Negative (Negative) 11/18/23 19:46 Urine Color Yellow (Yellow) 11/18/23 19:46 Urine Appearance Hazy (CLEAR) A 11/18/23 19:46 Urine pH 6 (5-7) 11/18/23 19:46 Ur Specific [place] 1.015 (1.005-1.030) 11/18/23 19:46 Urine Protein Trace (Negative) 11/18/23 19:46 Urine Glucose (UA) Norm (Normal) 11/18/23 19:46 Urine Ketones 1+ (Negative) H 11/18/23 19:46 Urine Blood Neg (Negative) 11/18/23 19:46 Urine Nitrate Negative (Negative) 11/18/23 19:46 Urine Bilirubin 1+ (Negative) H 11/18/23 19:46 Urine Urobilinogen Neg mg/dL (Negative) 11/18/23 19:46 Ur Leukocyte Esterase Trace (Negative) H 11/18/23 19:46 Urine RBC 0-4 /hpf (0-2) H 11/18/23 19:46 Urine WBC 5-10 /hpf (0-5) H 11/18/23 19:46 Ur Squamous Epith Cells 15-25 /hpf (0-5) H 11/18/23 19:46 Amorphous Sediment Not Reportable 11/18/23 19:46 Urine Bacteria 1+ /hpf (NONE) H 11/18/23 19:46 Urine Mucus 2+ /hpf 11/18/23 19:46 Ethyl Alcohol < 10 mg/dL (0-10) 11/18/23 19:47 Coronavirus 229E (PCR) Cancelled 11/18/23 20:20 Influenza Type A Ag negative (Negative) 11/18/23 20:20 Influenza Type B Ag negative (Negative) 11/18/23 20:20 SARS-CoV-2 (PCR) Cancelled 11/18/23 20:20 SARS-CoV-2 Ag (Rapid) negative (Negative) 11/18/23 Unknown No radiology studies performed this visit Discharge Plan Discharge Patient Disposition: Home Clinical Impression: Urinary tract infection, Drug side effects Condition: Stable Prescriptions: New hydroxyzine pamoate [Vistaril] 25 mg capsule 25 mg PO BID PRN (Reason: Irritability) 5 Days Qty: 10 0RF ondansetron 4 mg tablet,disintegrating 4 mg PO Q8H PRN (Reason: nausea and vomiting) 5 Days Qty: 20 0RF cephalexin 500 mg tablet 500 mg PO BID 7 Days Qty: 14 0RF No Action thiamine mononitrate (vit B1) [Vitamin B-1 (mononitrate)] 100 mg Tablet 100 mg PO DAILY 30 Days Qty: 30 1RF fluticasone propionate 50 mcg/actuation spray,suspension 1 spray INTRANASAL DAILY albuterol sulfate 90 mcg/actuation HFA aerosol inhaler 2 inh inhalation Q6H PRN (Reason: shortness of breath or wheezing) Qty: 8.5 0RF Discharge Orders: Discharge ED (Routine); Ordered 11/18/23 Ordered By: Teo Suh Referrals: Shima Tavarez FNP [Primary Care Provider] - Discharge Diet: Advance as tolerated Discharge Activity: Resume usual activity Patient Instructions: Naltrexone (By injection) (Vivitrol), Pain Management, Urinary Tract Infection - Women Activity Restrictions/Additional Instructions: I have provided you with 3 prescriptions. When prescription, cephalexin, is for a urinary tract infection. Zofran is for nausea. This medication does not have to be swallowed. It will dissolve in your mouth Vistaril is actually a medication similar to Benadryl but this will help with your irritability. It may make you sleepy so do not drive, operate heavy machinery, or make any life-changing decisions while taking it. Please follow-up with your primary care doctor this week Please return to the emergency department for new, concerning, worsening symptoms Coding Level of Care Code ED Product Analyst for Ko Cabrera
[2023-11-18 20:56] LABS: SARS Covid-2 Antigen negative (Negative)
[2023-11-18 20:58] LABS: Influenza A by IFA negative (Negative); Influenza B by IFA negative (Negative)
[2023-11-18 21:00] VITALS: BP 123/81; PULSE 71; RESP 16; O2SAT 99
[2023-11-18] MEDS: cephALEXin 500 mg Capsule PO (21:20)
[2023-11-18 22:20] VITALS: BP 127/80; PULSE 55; RESP 16; O2SAT 98
== END 2023-11-18 22:20 | disposition home or self-care (01) ==
PROVIDERS: Emergency Provider Nurse Practitioner; PCP Nurse Practitioner Family
DX: N39.0 Urinary tract infection, site not specified (principal); T50.995A Adverse effect of other drugs, medicaments and biological substances, initial encounter; Z72.0 Tobacco use
CPT/HCPCS: 36415; 80053; 80307; 81001; 81025; 85025; 87426; 87804; 96361; 96374; 99284; J2405; J7030

== ENCOUNTER 2024-03-10 02:48 | Emergency (ER) | payer MEDICAID, SELFPAY ==
[2024-03-10 03:05] VITALS: BP 145/77; PULSE 105; RESP 20; TEMP 36.6; O2SAT 97; BMI 37.8
[2024-03-10 03:07] VITALS: BP 147/77; O2SAT 93
--- NOTE | 2024-03-10 03:54 | ED_ITS ---
HPI - Extremity Problem General: Chief complaint: Extremity Injury, Lower Stated complaint: severe pain left leg wound vac issues Time Seen by Provider: 03/10/24 03:13 History of Present Illness: 33-year-old female dealing with a chroni c knee injury postoperatively after a pressure wound developed from bracing after surgery. She has a wound VAC in place. She notes that she fell a couple of days ago, and has had increased pain to the knee. No increased swelling. No increased drainage from the wound VAC. She says she is having trouble getting her pain under control with her home hydrocodone. She also states the alarm keeps going off on her wound VAC, and saying that she has an occlusion. She is unsure what this means. Related Data Home Medications Medication Instructions Recorded Confirmed fluticasone propionate 50 1 spray intranasal DAILY 07/26/23 11/15/23 mcg/actuation nasal spray,suspension Previous Rx's Medication Instructions Recorded thiamine mononitrate (vit B1) 100 100 mg PO DAILY 30 days #30 tabs 06/10/23 mg tablet (Vitamin B-1 (mononitrate)) albuterol sulfate 90 mcg/actuation 2 inh inhalation Q6H PRN shortness 09/16/23 aerosol inhaler of breath or wheezing #8.5 grams Allergies Allergy/AdvReac Type Severity Reaction Status Date / Time aspirin Allergy Severe ALGY-Difficulty Verified 11/18/23 18:17 Breathing [facility] ED PFSH: Medical History Marijuana use, episodic Alcohol use disorder, severe, dependence Cigarette nicotine dependence Chronic post-traumatic stress disorder Bipolar II disorder, most recent episode hypomanic moderate severity with mixed features Psychiatric care Asthma Surgical History History of laparoscopic cholecystectomy History of tonsillectomy and adenoidectomy Hx of colonoscopy AGE 18 No significant past surgical history Social History Smoking and tobacco/nicotine status: current every day tobacco/nicotine user Alcohol intake: current Alcohol intake frequency: holidays/special occasions only Physical Exam Const: COMMON NORMALS: no acute distress GENERAL APPEARANCE: cooperative; not ill appearing and not frail appearing HENMT: COMMON NORMALS: normocephalic, atraumatic and Normal external nose present HEAD & SCALP: normocephalic and atraumatic FACE & SINUS: normal facial exam and face symmetric NOSE: Normal external nose present Eye: COMMON NORMALS: Equal, round and reactive pupils present and EOMs intact bilaterally PUPIL: Yes Equal, round and reactive pupils present Neck/C-Spine: GENERAL: Yes trachea midline Chest: CHEST: Yes Symmetrical chest wall rise Resp: COMMON NORMALS: normal respiratory effort, No retractions and No use of accessory muscles Cardio: COMMON NORMALS: regular rate and regular rhythm RATE: regular rate RHYTHM: regular rhythm GI: COMMON NORMALS: Normal to inspection, nondistended, normoactive bowel sounds present Extremity: COMMON NORMALS: no pedal edema NARRATIVE EXTREMITY EXAM: Examination left knee reveals a small open area with wound VAC in place. Area appears clean and noncellulitic. Small knee effusion. Some diffuse tenderness present. Wound VAC hoses kinked, but flowing after obstruction taken care of. Neuro: MARK COMA SCALE: document GCS findings Mark coma scale eye opening: Spontaneous [place] coma scale verbal response: Orientated [place] coma scale motor response: Obey commands [place] coma scale total score: 15 SENSORY EXAM: Yes extremities (intact) Psych: COMMON NORMALS: speech normal SPEECH: Yes normal speech Skin: COMMON NORMALS: no rashes or lesions noted GENERAL SKIN EXAM: no rashes or lesions noted Course Vital Signs: Vital signs: Vital Signs Temperature 98 F 03/10/24 03:05 Pulse Rate 105 H 03/10/24 03:05 Respiratory Rate 20 H 03/10/24 03:05 Blood Pressure 147/77 03/10/24 03:07 Pulse Oximetry 93 03/10/24 03:07 MDM - Extremity (Nontraumatic) Medical Decision Making Wound VAC tubing appeared kinked. I unkinked the hose, but it is still creased. Tubing replaced by my nursing staff, who has experience with wound VAC changing. She was given pain medication here. It appears that she has had 294 hydrocodone filled in the last 60 days or so, which is about 5 a day. I am unable to give her a prescription at this point because of that. She will call wound care on Monday for wound recheck. Return for problems. No radiology studies performed this visit Discharge Plan Discharge Patient Disposition: Home Clinical Impression: Acute internal derangement of knee Condition: Stable Prescriptions: No Action thiamine mononitrate (vit B1) [Vitamin B-1 (mononitrate)] 100 mg Tablet 100 mg PO DAILY 30 Days Qty: 30 1RF fluticasone propionate 50 mcg/actuation spray,suspension 1 spray INTRANASAL DAILY albuterol sulfate 90 mcg/actuation HFA aerosol inhaler 2 inh inhalation Q6H PRN (Reason: shortness of breath or wheezing) Qty: 8.5 0RF Discharge Orders: Discharge ED (Routine); Ordered 03/10/24 Ordered By: Ruddy De La Cruz Referrals: Jesus Gonzales MD [Primary Care Provider] - 1-3 days Patient Instructions: ACL Injury (ED), Knee Pain (ED), Opioid Safety, Pain Management Activity Restrictions/Additional Instructions: Call your wound care doctor on Monday. Let them know your tubing was changed. They may want to see you to ensure things are working appropriately. Return for fever, other problems. Coding Level of Care Code ED Guest Experience Representative for Ko Cabrera
[2024-03-10] MEDS: ketorolac 60 mg/2 mL INJ IM (04:18)
[2024-03-10 04:19] VITALS: RESP 20
[2024-03-10] MEDS: oxyCODONE-APAP 10-325 mg Tablet 2 TAB PO (04:19)
[2024-03-10 04:27] VITALS: BP 148/89; PULSE 96; RESP 20; O2SAT 99
== END 2024-03-10 04:25 | disposition home or self-care (01) ==
PROVIDERS: Emergency Provider Emergency Medicine; PCP Family Medicine
DX: M23.92 Unspecified internal derangement of left knee (principal); Z72.0 Tobacco use
CPT/HCPCS: 96372; 99284; J1885

== ENCOUNTER 2024-03-23 08:03 | Emergency (ER) | payer MEDICAID, SELFPAY ==
[2024-03-23 08:28] VITALS: BP 161/91; PULSE 85; RESP 18; TEMP 36.7; O2SAT 98
[2024-03-23 08:50] LABS: Basophils # 0.1 10^3/uL (0.0-0.1); Basophils % 0.8 %; Eosinophils # 0.4 10^3/uL (0.0-0.8); Eosinophils % 5.4 %; Hematocrit 43.8 % (36-47); Lymphocytes # 2.4 10^3/uL (0.8-4.8); Lymphocytes % 30.3 %; Mean Corpuscular HGB Conc 31.7 g/dL (30-55); Mean Corpuscular Hemoglobin 30.2 pg (27-33); Mean Platelet Volume 10.2 fL (7.4-10.4); Monocytes # 0.5 10^3/uL (0.2-0.9); Monocytes % 6.8 %; Neutrophils # 4.42 10^3/uL (1.8-7.7); Neutrophils % 56.4 %; Nucleated Red Blood Cells % 0 %; Platelet Count 279 10^3/cmm (157-399); Red Blood Count 4.61 10^6/uL (3.85-5.65); Red Cell Distribution Width 12.7 % (12.1-15.1); White Blood Count 7.82 10^3/uL (3.29-11.43)
[2024-03-23 09:07] LABS: Alanine Aminotransferase 14 U/L (0-33); Albumin Level 3.9 g/dL (3.5-5.2); Alkaline Phosphatase 84 U/L (35-105); Anion Gap 15.8 (5-19); Aspartate Amino Transferase 14 U/L (0-32); Blood Urea Nitrogen 9 mg/dL (6-20); C Reactive Protein 6.3 mg/L (0.0-4.9); Calcium 8.7 mg/dL (8.5-10.5); Carbon Dioxide 22 mmol/L (22-29); Chloride 104 mmol/L (98-107); Creatinine Clr Calc Pharmacy 132.8938; Globulin 2.9 g/dL (1.3-4.6); Glomerular Filtration Rate 96.4 mL/min (90-130); Glucose 87 mg/dL (65-115); Osmolality Calculated 284 mOsm/kg (285-295); Potassium 3.8 mmol/L (3.5-5.1); Sodium 138 mmol/L (136-145); Total Bilirubin 0.2 mg/dL (0.15-1.2); Total Protein 6.8 g/dL (6.6-8.7)
[2024-03-23 09:09] LABS: Erythrocyte Sedimentation Rate 8 mm/hr (0-15)
[2024-03-23] MEDS: HYDROcodone-acetaminophen 5-325 mg Tablet 1 TAB PO (09:40)
--- NOTE | 2024-03-23 10:41 | ED_ITS ---
HPI - Wound/Laceration 2 General: Chief Complaint: Wound/Laceration Stated Complaint: left knee wound possible infection Time Seen by Provider: 03/23/24 08:25 History of Present Illness: 33-year-old female presents emergency ro om complaining of drainage from her left knee wound. She up until recently had a wound VAC in place she had complications from the knee surgery developed an infection and required a lumbar back. This morning she noticed little bit of drainage from the wound and was concerned. She is not currently on antibiotics not had any fever sweats or chills she has chronic pain to the knee and is in hinged knee brace is locked out at 90 degrees. Pain is largely unchanged. Associated symptoms: Denies chills or fever(s) Related Data Home Medications Medication Instructions Recorded Confirmed fluticasone propionate 50 1 spray intranasal DAILY 07/26/23 11/15/23 mcg/actuation nasal spray,suspension Previous Rx's Medication Instructions Recorded thiamine mononitrate (vit B1) 100 100 mg PO DAILY 30 days #30 tabs 06/10/23 mg tablet (Vitamin B-1 (mononitrate)) albuterol sulfate 90 mcg/actuation 2 inh inhalation Q6H PRN shortness 09/16/23 aerosol inhaler of breath or wheezing #8.5 grams Allergies Allergy/AdvReac Type Severity Reaction Status Date / Time aspirin Allergy Severe ALGY-Difficulty Verified 11/18/23 18:17 Breathing Review of Systems 2 Const: Denies: fever(s) or chills Card: Denies: chest pain Resp: Denies: dyspnea GI: Denies: abdominal pain : Denies: dysuria, urinary frequency or urinary urgency Musc: Denies: neck pain or back pain Skin/Breast: Denies: rash PFSH ED 2 PFSH: Medical History Marijuana use, episodic Alcohol use disorder, severe, dependence Cigarette nicotine dependence Chronic post-traumatic stress disorder Bipolar II disorder, most recent episode hypomanic moderate severity with mixed features Psychiatric care Asthma Surgical History History of laparoscopic cholecystectomy History of tonsillectomy and adenoidectomy Hx of colonoscopy AGE 18 No significant past surgical history Social History Smoking and tobacco/nicotine status: current every day tobacco/nicotine user Alcohol intake: current Alcohol intake frequency: holidays/special occasions only Physical Exam 2 Const: COMMON NORMALS: no acute distress GENERAL APPEARANCE: cooperative and comfortable ORIENTATION/CONSCIOUSNESS: Yes awake, Yes oriented to person, Yes oriented to place and Yes oriented to time HENMT: COMMON NORMALS: normocephalic, atraumatic and hearing grossly normal bilaterally HEAD & SCALP: normocephalic and atraumatic Resp: COMMON NORMALS: normal respiratory effort, No retractions, No use of accessory muscles and clear to auscultation bilaterally AUSCULTATION: clear to auscultation bilaterally Cardio: COMMON NORMALS: regular rate, regular rhythm and No murmurs present (Cardio) RATE: regular rate RHYTHM: regular rhythm Extremity: OTHER: Examination of the left knee wound the lateral portion of the knee there is a proximately 3 cm round lesion with fresh granulation tissue inferiorly and posteriorly there is a small point it is open no significant undermining cannot express any purulent fluid with palpation. Neuro: SENSORIUM/ORIENTATION: Yes oriented to person, Yes oriented to place and Yes oriented to time Skin: COMMON NORMALS: no rashes or lesions noted GENERAL SKIN EXAM: no rashes or lesions noted Course 2 Vital Signs: Vital signs: Vital Signs Temperature 98.1 F 03/23/24 08:28 Pulse Rate 85 03/23/24 08:28 Respiratory Rate 18 03/23/24 08:28 Blood Pressure 161/91 03/23/24 08:28 Pulse Oximetry 98 03/23/24 08:28 Oxygen Delivery Me thod Room Air 03/23/24 08:28 MDM - Wound/Laceration Medical Decision Making White count normal sed rate and CRP are normal no significant findings on exam I do not believe this represents a new infection may be some mucousy eschar at the base of the wound that expressed. Would not recommend antibiotics this point given the length of time spent antibiotics probably just be more likely to bring about a resistant bacteria. Follow-up with wound care next week. Medical Records I reviewed the patient's medical records. Lab Data I reviewed the patient's lab results. 03/23/24 08:38 03/23/24 08:38 Laboratory Results WBC 7.82 10^3/uL (3.29-11.43) 03/23/24 08:38 RBC 4.61 10^6/uL (3.85-5.65) 03/23/24 08:38 Hgb 13.90 g/dL (11.27-16.99) 03/23/24 08:38 Hct 43.8 % (36-47) 03/23/24 08:38 MCV 95.0 fl (85-98) 03/23/24 08:38 MCH 30.2 pg (27-33) 03/23/24 08:38 MCHC 31.7 g/dL (30-55) 03/23/24 08:38 RDW 12.7 % (12.1-15.1) 03/23/24 08:38 Plt Count 279 10^3/cmm (157-399) 03/23/24 08:38 MPV 10.2 fL (7.4-10.4) 03/23/24 08:38 Neut % (Auto) 56.4 % 03/23/24 08:38 Lymph % (Auto) 30.3 % 03/23/24 08:38 [place] % (Auto) 6.8 % 03/23/24 08:38 Eos % (Auto) 5.4 % 03/23/24 08:38 Baso % (Auto) 0.8 % 03/23/24 08:38 Neut # (Auto) 4.42 10^3/uL (1.8-7.7) 03/23/24 08:38 Lymph # (Auto) 2.4 10^3/uL (0.8-4.8) 03/23/24 08:38 [place] # (Auto) 0.5 10^3/uL (0.2-0.9) 03/23/24 08:38 Eos # (Auto) 0.4 10^3/uL (0.0-0.8) 03/23/24 08:38 Baso # (Auto) 0.1 10^3/uL (0.0-0.1) 03/23/24 08:38 Nucleated RBC % (auto) 0 % 03/23/24 08:38 Nucleated RBCs # 0.0 /100WBC 03/23/24 08:38 ESR 8 mm/hr (0-15) 03/23/24 08:38 Sodium 138 mmol/L (136-145) 03/23/24 08:38 Potassium 3.8 mmol/L (3.5-5.1) 03/23/24 08:38 Chloride 104 mmol/L (98-107) 03/23/24 08:38 Carbon Dioxide 22 mmol/L (22-29) 03/23/24 08:38 Anion Gap 15.8 (5-19) 03/23/24 08:38 BUN 9 mg/dL (6-20) 03/23/24 08:38 Creatinine 0.7 mg/dL (0.5-0.9) 03/23/24 08:38 GFR Calculation 96.4 mL/min (90-130) 03/23/24 08:38 Glucose 87 mg/dL (65-115) 03/23/24 08:38 Calculated Osmolality 284 mOsm/kg (285-295) L 03/23/24 08:38 Calcium 8.7 mg/dL (8.5-10.5) 03/23/24 08:38 Total Bilirubin 0.2 mg/dL (0.15-1.2) 03/23/24 08:38 AST 14 U/L (0-32) 03/23/24 08:38 ALT 14 U/L (0-33) 03/23/24 08:38 Alkaline Phosphatase 84 U/L (35-105) 03/23/24 08:38 C-Reactive Protein 6.3 mg/L (0.0-4.9) H 03/23/24 08:38 Total Protein 6.8 g/dL (6.6-8.7) 03/23/24 08:38 Albumin 3.9 g/dL (3.5-5.2) 03/23/24 08:38 Globulin 2.9 g/dL (1.3-4.6) 03/23/24 08:38 All radiology interpretation(s) finalized by discharge Discharge Plan Discharge Patient Disposition: Home Clinical Impression: Open wound of left knee Condition: Stable Prescriptions: No Action thiamine mononitrate (vit B1) [Vitamin B-1 (mononitrate)] 100 mg Tablet 100 mg PO DAILY 30 Days Qty: 30 1RF fluticasone propionate 50 mcg/actuation spray,suspension 1 spray INTRANASAL DAILY albuterol sulfate 90 mcg/actuation HFA aerosol inhaler 2 inh inhalation Q6H PRN (Reason: shortness of breath or wheezing) Qty: 8.5 0RF Discharge Orders: Discharge ED (Routine); Ordered 03/23/24 Ordered By: Josias Guerra Referrals: Jesus Gonzales MD [Primary Care Provider] - Discharge Diet: Usual diet Discharge Activity: Resume usual activity Patient Instructions: Opioid Safety, Pain Management Activity Restrictions/Additional Instructions: Thank you for choosing [facility] for your healthcare needs today. It is very important that you follow up as instructed or that you return to the Emergency Department should you have concerns or if your condition changes or worsens in any way. You were seen in the emergency room with complaints of drainage from the left knee. Your white count was normal there is no fever on exam the wound is no evidence of current infection. Given the course of care of this wound and the recent antibiotic she had been on it since there is no sign infection at this time do not recommend further antibiotics. Keep your wound care appointment as scheduled. Blood cultures were done today. Follow-up with wound care clinic as scheduled. Coding Level of Care Code ED Tank Wagon Driver for Ko Cabrera
== END 2024-03-23 10:59 | disposition home or self-care (01) ==
PROVIDERS: Emergency Provider Family Medicine; PCP Family Medicine
DX: S81.002A Unspecified open wound, left knee, initial encounter (principal); Z72.0 Tobacco use; X58.XXXA Exposure to other specified factors, initial encounter
CPT/HCPCS: 36415; 80053; 85025; 85651; 86140; 87040; 99283

== ENCOUNTER → 2024-06-05 13:19 | Outpatient (BNVA) | payer OTHER, SELFPAY | PROVIDERS: PCP Family Medicine; Visit Provider Psychiatry & Neurology Psychiatry | DX: F41.9 Anxiety disorder, unspecified (principal); F10.20 Alcohol dependence, uncomplicated | CPT/HCPCS: 80061; 83036 ==

== ENCOUNTER 2024-06-26 12:08 | Emergency (ER) | payer MEDICAID, SELFPAY ==
[2024-06-07 12:09] VITALS: BP 155/96; BMI 41.6
--- NOTE | 2024-06-26 12:10 | XRR_ITS ---
PROCEDURE INFORMATION: Exam: XR Chest Exam date and time: 06/26/2024 12:16 PM Age: 33 years old Clinical indication: Pain; Angina pectoris; Additional info: Cp TECHNIQUE: Imaging protocol: Radiologic exam of the chest. Views: 1 view. COMPARISON: CR XR chest 1V portable [id number] 06/21/2023 10:04 AM FINDINGS: Lungs: Unremarkable. No consolidation or mass. Pleural spaces: Unremarkable. No pleural effusion. No pneumothorax. Heart/Mediastinum: Unremarkable. No cardiomegaly. Bones/joints: Unremarkable. XR/XR chest 1V portable [id number] IMPRESSION: No acute findings.
--- NOTE | 2024-06-26 12:15 | ECG_ITS ---
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 Measurements Intervals [place] Rate: 76 P: 56 UT: 146 QRS: 21 QRSD: 85 T: 39 QT: 374 QTc: 421 Interpretive Statements SINUS RHYTHM SEPTAL MYOCARDIAL INFARCTION , OF INDETERMINATE AGE [40+ ms Q WAVE IN V1/V2] Compared to ECG 06/21/2023 09:50:24 Myocardial infarct finding now present Electronically Signed On 06-26-2024 19:12:14 PERFORMING ARTS TECHNICIANS by Amos Lees M.D. [email or web address]
[2024-06-26 12:16] VITALS: BP 122/83; PULSE 75; TEMP 36.6; O2SAT 95; BMI 41.1
[2024-06-26 12:53] VITALS: BP 143/91; PULSE 71; RESP 18; O2SAT 98
[2024-06-26 12:57] LABS: Basophils # 0.1 10^3/uL (0.0-0.1); Eosinophils # 0.7 10^3/uL (0.0-0.8); Eosinophils % 7.8 %; Hematocrit 42.1 % (36-47); Lymphocytes # 2.3 10^3/uL (0.8-4.8); Lymphocytes % 26.5 %; Mean Corpuscular HGB Conc 32.3 g/dL (30-55); Mean Corpuscular Hemoglobin 30.3 pg (27-33); Mean Corpuscular Volume 93.8 fl (85-98); Mean Platelet Volume 9.8 fL (7.4-10.4); Monocytes # 0.6 10^3/uL (0.2-0.9); Monocytes % 6.3 %; Neutrophils # 4.84 10^3/uL (1.8-7.7); Neutrophils % 55.1 %; Nucleated Red Blood Cells % 0 %; Platelet Count 397 10^3/cmm (157-399); Red Blood Count 4.49 10^6/uL (3.85-5.65); Red Cell Distribution Width 13.8 % (12.1-15.1); White Blood Count 8.79 10^3/uL (3.29-11.43)
--- NOTE | 2024-06-26 12:59 | CTR_ITS ---
PROCEDURE INFORMATION: Exam: CTA Chest With Contrast Exam date and time: 06/26/2024 2:08 PM Age: 33 years old Clinical indication: Pain; Chest pressure; Additional info: Chest pain, dyspnea, recent surgery, no anticoagulation TECHNIQUE: Imaging protocol: Computed tomographic angiography of the chest with contrast. Exam focused on the arteries. 3D rendering (Not supervised by radiologist): MIP and/or 3D reconstructed images were created by the technologist. Radiation optimization: All CT scans at this facility use at least one of these dose optimization techniques: automated exposure control; mA and/or kV adjustment per patient size (includes targeted exams where dose is matched to clinical indication); or iterative reconstruction. Contrast material: OMNI 350; Contrast volume: 100 ml; Contrast route: INTRAVENOUS (IV); COMPARISON: CR XR chest 1V portable [id number] 06/26/2024 12:16 PM RADIATION DOSE METRICS: Total DLP (mGy-cm): 477.83 FINDINGS: Pulmonary arteries: Normal. No pulmonary emboli. Aorta: Unremarkable. No aortic aneurysm. No aortic dissection. Lungs: Unremarkable. No consolidation. No masses. Pleural spaces: Unremarkable. No pneumothorax. No pleural effusion. Heart: Unremarkable. No cardiomegaly. No pericardial effusion. Lymph nodes: Unremarkable. No enlarged lymph nodes. Gallbladder and biliary ducts: The gallbladder has been resected. Bones/joints: Unremarkable. No acute fracture. Soft tissues: Unremarkable. CT/CT angio chest PE protcl [id number] IMPRESSION: No acute findings.
[2024-06-26 13:14] LABS: Alanine Aminotransferase 25 U/L (0-33); Albumin Level 4.4 g/dL (3.5-5.2); Alkaline Phosphatase 89 U/L (35-105); Anion Gap 19.2 (5-19); Aspartate Amino Transferase 27 U/L (0-32); Blood Urea Nitrogen 9 mg/dL (6-20); Calcium 9.1 mg/dL (8.5-10.5); Carbon Dioxide 22 mmol/L (22-29); Chloride 100 mmol/L (98-107); Creatinine Clr Calc Pharmacy 137.8051; Globulin 3.1 g/dL (1.3-4.6); Glomerular Filtration Rate 96.4 mL/min (90-130); Glucose 89 mg/dL (65-115); Lipase 23 U/L (13-60); Osmolality Calculated 282 mOsm/kg (285-295); Potassium 4.2 mmol/L (3.5-5.1); Sodium 137 mmol/L (136-145); Total Bilirubin 0.5 mg/dL (0.15-1.2); Total Protein 7.5 g/dL (6.6-8.7)
--- NOTE | 2024-06-26 13:15 | ED_ITS ---
HPI - Chest Pain 2 General: Chief Complaint: Chest Pain Stated Complaint: chest pain, tightness and heavy Time Seen by Provider: 06/26/24 12:55 History of Present Illness: Patient presents to the ER with complaints of intermittent right sharp stabbing pulling chest pain and heaviness. Patient said this started when she woke up this morning and comes and goes with no known causes. Patient has recent surgery by Dr. Pinzon orthopedic surgeon in [place] on her left leg. She called him and he told her to come in to be checked over for a PE. Patient is a smoker, not on any blood thinners, Related Data Home Medications Medication Instructions Recorded Confirmed fluticasone propionate 50 1 spray intranasal DAILY 07/26/23 06/26/24 mcg/actuation nasal spray,suspension bupropion HCl 150 mg 24 hr tablet, 150 mg PO DAILY 06/26/24 06/26/24 extended release clonazepam 1 mg tablet 1 mg PO DAILY 06/26/24 06/26/24 fluticasone 250 mcg-salmeterol 50 1 inh inhalation BID 06/26/24 06/26/24 mcg/dose blistr powdr for inhalation (Advair Diskus) metformin 500 mg tablet 500 mg PO BID 06/26/24 06/26/24 naproxen 500 mg tablet 500 mg PO BID 06/26/24 06/26/24 Previous Rx's Medication Instructions Recorded albuterol sulfate 90 mcg/actuation 2 inh inhalation Q6H PRN shortness 09/16/23 aerosol inhaler of breath or wheezing #8.5 grams Allergies Allergy/AdvReac Type Severity Reaction Status Date / Time aspirin Allergy Severe ALGY-Difficulty Verified 06/26/24 12:23 Breathing Review of Systems 2 General: Reports: 10 or more systems reviewed and unremarkable except in HPI and below PFSH ED 2 PFSH: Medical History Marijuana use, episodic Alcohol use disorder, severe, dependence Cigarette nicotine dependence Chronic post-traumatic stress disorder Bipolar II disorder, most recent episode hypomanic moderate severity with mixed features Psychiatric care Asthma Surgical History History of laparoscopic cholecystectomy History of tonsillectomy and adenoidectomy Hx of colonoscopy AGE 18 No significant past surgical history Social History Smoking and tobacco/nicotine status: current every day tobacco/nicotine user Alcohol intake: current Alcohol intake frequency: holidays/special occasions only Physical Exam 2 Const: COMMON NORMALS: no acute distress, average body habitus, patient oriented x3, no limitations, healthy appearing, alert and well nourished HENMT: COMMON NORMALS: normocephalic, atraumatic, hearing grossly normal bilaterally, external ears normal, Normal external nose present and moist oral mucous membranes HEAD & SCALP: normocephalic and atraumatic NOSE: Normal external nose present EXTERNAL EAR: Yes external ears normal Neck/C-Spine: COMMON NORMALS: full ROM, no lymphadenopathy, supple, no meningeal signs, no JVD and Thyroid normal THYROID: Thyroid normal Chest: COMMONS NORMALS: normal inspection of the chest and normal palpation of entire chest wall Resp: COMMON NORMALS: normal respiratory effort, No retractions, No use of accessory muscles and clear to auscultation bilaterally AUSCULTATION: clear to auscultation bilaterally Cardio: COMMON NORMALS: no JVD, regular rate, regular rhythm, S1 normal heart sound present, S2 normal heart sound present, No gallops present (Cardio), No clicks present (Cardio), No murmurs present (Cardio) and No rub (Cardio) R ATE: regular rate RHYTHM: regular rhythm HEART SOUNDS: S1 normal heart sound present and S2 normal heart sound present GI: COMMON NORMALS: Normal to inspection, nondistended, normoactive bowel sounds present, Soft to palpation, non-tender, No hepatosplenomegaly present and no masses PALPATION: Yes Soft to palpation and Yes No hepatosplenomegaly present Neuro: COMMON NORMALS: patient oriented x3 SENSORIUM/ORIENTATION: Yes alert MENINGEAL SIGNS: Yes no meningeal signs Course 2 Vital Signs: Vital signs: Vital Signs Temperature 97.8 F 06/26/24 12:16 Pulse Rate 80 06/26/24 14:41 Respiratory Rate 16 06/26/24 14:41 Blood Pressure 142/84 06/26/24 14:41 Pulse Oximetry 98 06/26/24 14:41 Oxygen Delivery Me thod Room Air 06/26/24 14:41 MDM - Chest Pain Medical Decision Making Lab work chest x-ray and CTA all essentially normal. Patient informed of these results and diagnosis of musculoskeletal type pain. Patient be discharged. Medical Records I reviewed the patient's medical records. Lab Data I reviewed the patient's lab results. 06/26/24 12:40 06/26/24 12:40 Radiology Impressions Chest X-Ray 06/26/24 12:10 IMPRESSION: No acute findings. Chest CTA 06/26/24 12:59 IMPRESSION: No acute findings. Laboratory Results WBC 8.79 10^3/uL (3.29-11.43) 06/26/24 12:40 RBC 4.49 10^6/uL (3.85-5.65) 06/26/24 12:40 Hgb 13.60 g/dL (11.27-16.99) 06/26/24 12:40 Hct 42.1 % (36-47) 06/26/24 12:40 MCV 93.8 fl (85-98) 06/26/24 12:40 MCH 30.3 pg (27-33) 06/26/24 12:40 MCHC 32.3 g/dL (30-55) 06/26/24 12:40 RDW 13.8 % (12.1-15.1) 06/26/24 12:40 Plt Count 397 10^3/cmm (157-399) 06/26/24 12:40 MPV 9.8 fL (7.4-10.4) 06/26/24 12:40 Neut % (Auto) 55.1 % 06/26/24 12:40 Lymph % (Auto) 26.5 % 06/26/24 12:40 [place] % (Auto) 6.3 % 06/26/24 12:40 Eos % (Auto) 7.8 % 06/26/24 12:40 Baso % (Auto) 1.0 % 06/26/24 12:40 Neut # (Auto) 4.84 10^3/uL (1.8-7.7) 06/26/24 12:40 Lymph # (Auto) 2.3 10^3/uL (0.8-4.8) 06/26/24 12:40 [place] # (Auto) 0.6 10^3/uL (0.2-0.9) 06/26/24 12:40 Eos # (Auto) 0.7 10^3/uL (0.0-0.8) 06/26/24 12:40 Baso # (Auto) 0.1 10^3/uL (0.0-0.1) 06/26/24 12:40 Nucleated RBC % (auto) 0 % 06/26/24 12:40 Nucleated RBCs # 0.0 /100WBC 06/26/24 12:40 Sodium 137 mmol/L (136-145) 06/26/24 12:40 Potassium 4.2 mmol/L (3.5-5.1) 06/26/24 12:40 Chloride 100 mmol/L (98-107) 06/26/24 12:40 Carbon Dioxide 22 mmol/L (22-29) 06/26/24 12:40 Anion Gap 19.2 (5-19) H 06/26/24 12:40 BUN 9 mg/dL (6-20) 06/26/24 12:40 Creatinine 0.7 mg/dL (0.5-0.9) 06/26/24 12:40 GFR Calculation 96.4 mL/min (90-130) 06/26/24 12:40 Glucose 89 mg/dL (65-115) 06/26/24 12:40 Calculated Osmolality 282 mOsm/kg (285-295) L 06/26/24 12:40 Calcium 9.1 mg/dL (8.5-10.5) 06/26/24 12:40 Total Bilirubin 0.5 mg/dL (0.15-1.2) 06/26/24 12:40 AST 27 U/L (0-32) 06/26/24 12:40 ALT 25 U/L (0-33) 06/26/24 12:40 Alkaline Phosphatase 89 U/L (35-105) 06/26/24 12:40 Troponin T Baseline < 6 ng/L (0-10) 06/26/24 12:40 Troponin T 120 Minute 6.00 ng/L (0-10) 06/26/24 14:32 Delta Troponin T 0.75301 ABS# (0-10) 06/26/24 14:32 Total Protein 7.5 g/dL (6.6-8.7) 06/26/24 12:40 Albumin 4.4 g/dL (3.5-5.2) 06/26/24 12:40 Globulin 3.1 g/dL (1.3-4.6) 06/26/24 12:40 Lipase 23 U/L (13-60) 06/26/24 12:40 HCG, Qual Negative (Negative) 06/26/24 12:40 All radiology interpretation(s) finalized by discharge Discharge Plan Discharge Patient Disposition: Home Clinical Impression: Atypical chest pain Condition: Stable Prescriptions: No Action fluticasone propionate 50 mcg/actuation spray,suspension 1 spray INTRANASAL DAILY albuterol sulfate 90 mcg/actuation HFA aerosol inhaler 2 inh inhalation Q6H PRN (Reason: shortness of breath or wheezing) Qty: 8.5 0RF metformin 500 mg tablet 500 mg PO BID fluticasone propion-salmeterol [Advair Diskus] 250-50 mcg/dose blister with device 1 inh INHALATION BID clonazepam 1 mg tablet 1 mg PO DAILY naproxen 500 mg tablet 500 mg PO BID bupropion HCl 150 mg tablet extended release 24 hr 150 mg PO DAILY Discharge Orders: Discharge ED (Routine); Ordered 06/26/24 Ordered By: Pratik Velez Referrals: Jesus Gonzales MD [Primary Care Provider] - 1 week Patient Instructions: Chest Pain - Noncardiac Activity Restrictions/Additional Instructions: Thank you for choosing [facility] for your healthcare needs today. Please realize that you were seen in the emergency department and that we are providing you with an emergency medical screening exam and this may not be a complete and all exclusive of all testing and/or medical workup we may need to determine your element or severity of your illness. It is very important that you follow-up as instructed with your primary care provider or specialist for the additional evaluation and to discuss your medical treatment plan. You may return to the emergency department should you have concerns or if your condition changes or worsens in any way. Coding Level of Care Code ED Marketing Intern for Ko Cabrera
[2024-06-26 13:19] LABS: Troponin(5th) Baseline < 6 ng/L (0-10)
[2024-06-26 13:23] VITALS: PULSE 72; RESP 18; O2SAT 95
[2024-06-26 13:25] LABS: HCG, Serum Qual Negative (Negative)
[2024-06-26 13:30] VITALS: BP 119/87; PULSE 75; RESP 16; O2SAT 96
[2024-06-26] MEDS: iohexol 350 mg/mL 500 mL Btl (per mL) IV (14:08)
--- NOTE | 2024-06-26 14:31 | ECG_ITS ---
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 Measurements Intervals [place] Rate: 64 P: 39 HI: 151 QRS: 2 QRSD: 87 T: 24 QT: 396 QTc: 409 Interpretive Statements SINUS RHYTHM LOW QRS VOLTAGE IN PRECORDIAL LEADS [QRS DEFLECTION < 1.0 mV IN CHEST LEADS] SEPTAL MYOCARDIAL INFARCTION , OF INDETERMINATE AGE [40+ ms Q WAVE IN V1/V2] Compared to ECG 06/21/2023 09:50:24 Low QRS voltage now present Myocardial infarct finding now present Electronically Signed On 06-26-2024 19:40:14 WAREHOUSE SHIPPING CLERK by Amos Lees M.D. [email or web address]
[2024-06-26] MEDS: HYDROcodone-acetaminophen 5-325 mg Tablet 1 TAB PO (14:40)
[2024-06-26 14:41] VITALS: BP 142/84; PULSE 80; RESP 16; O2SAT 98
[2024-06-26 14:55] LABS: Troponin 5 2HR Delta 0.00001 ABS# (0-10)
[2024-06-26 15:07] VITALS: BP 140/86; PULSE 79; O2SAT 98
== END 2024-06-26 15:09 | disposition home or self-care (01) ==
PROVIDERS: Emergency Medicine; Emergency Provider Emergency Medicine; PCP Family Medicine
DX: R07.89 Other chest pain (principal); Z79.84 Long term (current) use of oral hypoglycemic drugs; Z72.0 Tobacco use
CPT/HCPCS: 36415; 71045; 71275; 80053; 83690; 84484; 84703; 85025; 93005; 99285

== ENCOUNTER 2024-08-02 03:28 | Emergency (ER) | payer MEDICAID, SELFPAY ==
[2024-06-07 12:09] VITALS: BP 155/96; BMI 41.6
[2024-08-02 03:29] VITALS: BP 106/72; PULSE 97; RESP 18; TEMP 37.1; O2SAT 96; BMI 41.1
[2024-08-02] MEDS: LORazepam 1 mg Tablet PO (03:48)
[2024-08-02 03:51] LABS: Basophils # 0.1 10^3/uL (0.0-0.1); Basophils % 1.1 %; Eosinophils # 0.4 10^3/uL (0.0-0.8); Eosinophils % 6.5 %; Hematocrit 42.3 % (36-47); Lymphocytes # 3.1 10^3/uL (0.8-4.8); Lymphocytes % 48.2 %; Mean Corpuscular HGB Conc 32.9 g/dL (30-55); Mean Corpuscular Hemoglobin 29.7 pg (27-33); Mean Corpuscular Volume 90.4 fl (85-98); Monocytes # 0.6 10^3/uL (0.2-0.9); Monocytes % 9.8 %; Neutrophils # 2.21 10^3/uL (1.8-7.7); Neutrophils % 33.9 %; Nucleated Red Blood Cells % 0 %; Platelet Count 335 10^3/cmm (157-399); Red Blood Count 4.68 10^6/uL (3.85-5.65); Red Cell Distribution Width 13.6 % (12.1-15.1); White Blood Count 6.51 10^3/uL (3.29-11.43)
[2024-08-02 04:08] LABS: Amphetamines Screen Urine Negative (Negative); Barbiturates Screen Urine Negative (Negative); Benzodiazepines Screen Urine Negative (Negative); Cocaine Screen Urine Negative (Negative); Opiate Screen Urine Negative (Negative); PCP Screen Urine Negative (Negative); THC Screen Urine Negative (Negative)
[2024-08-02 04:11] LABS: Alanine Aminotransferase 21 U/L (0-33); Albumin Level 4.4 g/dL (3.5-5.2); Alkaline Phosphatase 95 U/L (35-105); Anion Gap 17.8 (5-19); Aspartate Amino Transferase 22 U/L (0-32); Blood Urea Nitrogen 7 mg/dL (6-20); Calcium 8.3 mg/dL (8.5-10.5); Carbon Dioxide 24 mmol/L (22-29); Chloride 102 mmol/L (98-107); Creatinine Clr Calc Pharmacy 160.7727; Globulin 2.8 g/dL (1.3-4.6); Glomerular Filtration Rate 115.1 mL/min (90-130); Glucose 117 mg/dL (65-115); Osmolality Calculated 289 mOsm/kg (285-295); Potassium 3.8 mmol/L (3.5-5.1); Salicylate 0.7 mg/dL (3-10); Sodium 140 mmol/L (136-145); Total Bilirubin 0.3 mg/dL (0.15-1.2); Total Protein 7.2 g/dL (6.6-8.7)
[2024-08-02 04:16] LABS: Acetaminophen < 5.0 ug/mL (10-30)
[2024-08-02 04:53] LABS: Alcohol Level 253 mg/dL (0-10)
--- NOTE | 2024-08-02 06:18 | ED.C_ITS ---
HPI - Psych 2 General: Chief Complaint: Psychiatric Symptoms Stated Complaint: SI Time Seen by Provider: 08/02/24 03:38 History of Present Illness: 33-year-old female presents by EMS chief complaint reported suicidal thoughts and ideations patient did report drinking a substantial amount of alcohol earlier this evening she reports she has had increased amounts of anxiety due to her being taking off of her Klonopin. Patient presented this morning into our ER at approximately 3 AM there was a delay in regards to evaluation of the patient in which I was initiated patient contact upon my arrival to the ER at 0615. This was due to the extent of the how extremely busy the ER was with multiple critical patients. Upon my examination upon directly questioning the patient she reports she has had a anxiety attack she denies any current suicidal homicidal thoughts or ideations and continuing can contract to do no harm that in which patient does report history of substance abuse issues reports no recent drugs does report she did drink a substantial and alcohol earlier today she denies any current suicidal thoughts ideations or plan. Associated symptoms: Reports depression; Deny auditory hallucinations, visual hallucinations, homicidal ideation or suicidal ideation Related Data Home Medications Medication Instructions Recorded Confirmed fluticasone propionate 50 1 spray intranasal DAILY 07/26/23 07/25/24 mcg/actuation nasal spray,suspension fluticasone 250 mcg-salmeterol 50 1 inh inhalation BID 06/26/24 07/25/24 mcg/dose blistr powdr for inhalation (Advair Diskus) metformin 500 mg tablet 500 mg PO BID 06/26/24 07/25/24 naproxen 500 mg tablet 500 mg PO BID 06/26/24 07/25/24 Previous Rx's Medication Instructions Recorded albuterol sulfate 90 mcg/actuation 2 inh inhalation Q6H PRN shortness 09/16/23 aerosol inhaler of breath or wheezing #8.5 grams hydroxyzine HCl 50 mg tablet 50 mg PO Q6H PRN anxiety #20 tabs 08/02/24 Allergies Allergy/AdvReac Type Severity Reaction Status Date / Time aspirin Allergy Severe ALGY-Difficulty Verified 08/02/24 03:36 Breathing Review of Systems 2 General: Reports: 10 or more systems reviewed and unremarkable except in HPI and below Const: Denies: fever(s), chills, fatigue or malaise Eyes: Denies: change in vision or blurry vision Card: Denies: chest pain or palpitations Resp: Denies: dyspnea or productive cough GI: Denies: abdominal pain, nausea or vomiting : Denies: flank pain Musc: Denies: extremity pain or extremity swelling Skin/Breast: Denies: rash or pruritus Neuro: Denies: headache(s) Psych: Reports: anxiety and depression; Denies: visual hallucinations, auditory hallucinations, tactile hallucinations, suicidal ideation or homicidal ideation Devonte/Lymph: Denies: easy bleeding All/Imm: Denies: urticaria, throat swelling or facial swelling PFSH ED 2 PFSH: Medical History Marijuana use, episodic Alcohol use disorder, severe, dependence Cigarette nicotine dependence Chronic post-traumatic stress disorder Bipolar II disorder, most recent episode hypomanic moderate severity with mixed features Psychiatric care Asthma Surgical History History of laparoscopic cholecystectomy History of tonsillectomy and adenoidectomy Hx of colonoscopy AGE 18 No significant past surgical history Social History Smoking and tobacco/nicotine status: current every day tobacco/nicotine user Alcohol intake: former Adopted: No Caregiver/support person: No Lives independently: Yes Household members: family Housing: House Marital status: Single Number of children: 0 Highest education level completed: 9th Grade service: No Current occupational status: unemployed Pets and animals: Yes Pets & animals: dog(s) Leisure activites: other Leisure activities details: river Sexually active: Yes Do you think of yourself as: Straight/Heterosexual Current gender identity: Female Sun/Restorationism: Gnosticism Special sun needs: No Agree to transfusion: Yes Physical Exam 2 Narrative: EXAM NARRATIVE: patient appears in no acute distress, she is noted to be alert and oriented x 3 GCS 15 NIH of 0 no focal neurodeficit appreciated upon direct questioning patient denies any homicidal suicidal thoughts or ideations. Const: COMMON NORMALS: no acute distress, patient oriented x3 and healthy appearing HENMT: COMMON NORMALS: normocephalic and atraumatic HEAD & SCALP: n ormocephalic and atraumatic Eye: COMMON NORMALS: Equal, round and reactive pupils present and EOMs intact bilaterally PUPIL: Yes Equal, round and reactive pupils present Neck/C-Spine: COMMON NORMALS: full ROM, supple and no JVD Lymph: LYMPHATIC: no lymphadenopathy noted Chest: COMMONS NORMALS: normal inspection of the chest and normal palpation of entire chest wall Resp: COMMON NORMALS: normal respiratory effort, No retractions and clear to auscultation bilaterally EFFORT & INSPECTION: Yes able to speak in complete sentences and Yes symmetric chest movement AUSCULTATION: clear to auscultation bilaterally Cardio: COMMON NORMALS: no JVD, regular rate and regular rhythm RATE: r egular rate RHYTHM: regular rhythm GI: COMMON NORMALS: Normal to inspection, nondistended, normoactive bowel sounds present, Soft to palpation and non-tender INSPECTION: Yes normal to inspection PALPATION: Yes Soft to palpation : COMMON NORMALS: Yes no CVA tenderness BLADDER/KIDNEY EXAM: Yes no CVA tenderness Back/Pelvis: COMMON NORMALS: no CVA tenderness Extremity: COMMON NORMALS: normal to inspection and full ROM Neuro: COMMON NORMALS: patient oriented x3, CN's II-XII intact bilaterally, moves all extremities and no focal motor deficits Psych: COMMON NORMALS: mental status grossly normal, Normal thought process present, cooperative and normal affect THOUGHT PROCESS: Normal thought process present Skin: COMMON NORMALS: no rashes or lesions noted GENERAL SKIN EXAM: no rashes or lesions noted Course 2 Vital Signs: Vital signs: Vital Signs Temperature 98.8 F 08/02/24 03:29 Pulse Rate 96 08/02/24 06:26 Respiratory Rate 16 08/02/24 06:26 Blood Pressure 147/91 08/02/24 06:26 Pulse Oximetry 99 08/02/24 06:26 Oxygen Delivery Me thod Room Air 08/02/24 03:29 MDM - Psych Medical Decision Making Patient demonstrate demonstrating clinical sobriety clear speech steady gait per alcohol level several hours ago was found to be at 253 she is found to be clinically sober at this time patient is stable for discharge home did advise further follow-up with [facility] for further evaluation management of her mental health concerns upon direct questioning, the patient denies any homicidal suicidal thoughts or ideations or any other additional concerns. Lab Data 08/02/24 03:46 08/02/24 03:46 Laboratory Results WBC 6.51 10^3/uL (3.29-11.43) 08/02/24 03:46 RBC 4.68 10^6/uL (3.85-5.65) 08/02/24 03:46 Hgb 13.90 g/dL (11.27-16.99) 08/02/24 03:46 Hct 42.3 % (36-47) 08/02/24 03:46 MCV 90.4 fl (85-98) 08/02/24 03:46 MCH 29.7 pg (27-33) 08/02/24 03:46 MCHC 32.9 g/dL (30-55) 08/02/24 03:46 RDW 13.6 % (12.1-15.1) 08/02/24 03:46 Plt Count 335 10^3/cmm (157-399) 08/02/24 03:46 MPV 9.0 fL (7.4-10.4) 08/02/24 03:46 Neut % (Auto) 33.9 % 08/02/24 03:46 Lymph % (Auto) 48.2 % 08/02/24 03:46 Amelia % (Auto) 9.8 % 08/02/24 03:46 Eos % (Auto) 6.5 % 08/02/24 03:46 Baso % (Auto) 1.1 % 08/02/24 03:46 Neut # (Auto) 2.21 10^3/uL (1.8-7.7) 08/02/24 03:46 Lymph # (Auto) 3.1 10^3/uL (0.8-4.8) 08/02/24 03:46 Amelia # (Auto) 0.6 10^3/uL (0.2-0.9) 08/02/24 03:46 Eos # (Auto) 0.4 10^3/uL (0.0-0.8) 08/02/24 03:46 Baso # (Auto) 0.1 10^3/uL (0.0-0.1) 08/02/24 03:46 Nucleated RBC % (auto) 0 % 08/02/24 03:46 Nucleated RBCs # 0.0 /100WBC 08/02/24 03:46 Sodium 140 mmol/L (136-145) 08/02/24 03:46 Potassium 3.8 mmol/L (3.5-5.1) 08/02/24 03:46 Chloride 102 mmol/L (98-107) 08/02/24 03:46 Carbon Dioxide 24 mmol/L (22-29) 08/02/24 03:46 Anion Gap 17.8 (5-19) 08/02/24 03:46 BUN 7 mg/dL (6-20) 08/02/24 03:46 Creatinine 0.6 mg/dL (0.5-0.9) 08/02/24 03:46 GFR Calculation 115.1 mL/min (90-130) 08/02/24 03:46 Glucose 117 mg/dL (65-115) H 08/02/24 03:46 Calculated Osmolality 289 mOsm/kg (285-295) 08/02/24 03:46 Calcium 8.3 mg/dL (8.5-10.5) L 08/02/24 03:46 Total Bilirubin 0.3 mg/dL (0.15-1.2) 08/02/24 03:46 AST 22 U/L (0-32) 08/02/24 03:46 ALT 21 U/L (0-33) 08/02/24 03:46 Alkaline Phosphatase 95 U/L (35-105) 08/02/24 03:46 Total Protein 7.2 g/dL (6.6-8.7) 08/02/24 03:46 Albumin 4.4 g/dL (3.5-5.2) 08/02/24 03:46 Globulin 2.8 g/dL (1.3-4.6) 08/02/24 03:46 Salicylates 0.7 mg/dL (3-10) L 08/02/24 03:46 Urine Opiates Screen Negative ng/mL (Negative) 08/02/24 03:53 Acetaminophen < 5.0 ug/mL (10-30) L 08/02/24 03:46 Ur Barbiturates Screen Negative ng/mL (Negative) 08/02/24 03:53 Ur Phencyclidine Scrn Negative ng/mL (Negative) 08/02/24 03:53 Ur Amphetamines Screen Negative ng/mL (Negative) 08/02/24 03:53 U Benzodiazepines Scrn Negative ng/mL (Negative) 08/02/24 03:53 Urine Cocaine Screen Negative ng/mL (Negative) 08/02/24 03:53 U Marijuana (THC) Screen Negative ng/mL (Negative) 08/02/24 03:53 Ethyl Alcohol 253 mg/dL (0-10) H 08/02/24 03:46 No radiology studies performed this visit Discharge Plan Discharge Patient Disposition: Home Clinical Impression: Alcohol abuse, Anxiety Condition: Stable Prescriptions: New hydroxyzine HCl 50 mg tablet 50 mg PO Q6H PRN (Reason: anxiety) Qty: 20 0RF No Action fluticasone propionate 50 mcg/actuation spray,suspension 1 spray INTRANASAL DAILY albuterol sulfate 90 mcg/actuation HFA aerosol inhaler 2 inh inhalation Q6H PRN (Reason: shortness of breath or wheezing) Qty: 8.5 0RF metformin 500 mg tablet 500 mg PO BID fluticasone propion-salmeterol [Advair Diskus] 250-50 mcg/dose blister with device 1 inh INHALATION BID naproxen 500 mg tablet 500 mg PO BID Discharge Orders: Discharge ED (Routine); Ordered 08/02/24 Ordered By: Shahzad Ortiz Referrals: Jesus Gonzales MD [Primary Care Provider] - 4-7 days Discharge Diet: Advance as tolerated Discharge Activity: Increase activity as tolerated Patient Instructions: Abuse of Alcohol (ED), Anxiety (ED) Activity Restrictions/Additional Instructions: You have noted to the physician that you are not homicidal or suicidal reported that earlier today you had a anxiety attack in which you were drinking a substantial amount alcohol you have been found to be medically clear at this time you are noted to be clinically sober with steady gait and clear speech which you are cognizant of your surroundings you report you can contract to do no harm. It is recommended if you do develop any homicidal suicidal thoughts or ideations to return to the ER immediately for further evaluation and management. Coding Level of Care Code ED Traffic Safety Administrator for Ko Cabrera
[2024-08-02 06:26] VITALS: BP 147/91; PULSE 96; RESP 16; O2SAT 99
== END 2024-08-02 06:35 | disposition home or self-care (01) ==
PROVIDERS: General Practice; Emergency Provider Emergency Medicine; PCP Family Medicine
DX: F10.129 Alcohol abuse with intoxication, unspecified (principal); Y90.8 Blood alcohol level of 240 mg/100 ml or more; Z79.84 Long term (current) use of oral hypoglycemic drugs; Z72.0 Tobacco use
CPT/HCPCS: 36415; 80053; 80306; 80307; 85025; 99283

== ENCOUNTER 2024-08-15 07:37 | Emergency (ER) | payer MEDICAID, SELFPAY ==
[2024-06-07 12:09] VITALS: BP 155/96; BMI 41.6
[2024-08-15 08:10] VITALS: BP 171/99; PULSE 72; RESP 18; TEMP 36.7; O2SAT 99; BMI 41.1
[2024-08-15] MEDS: orphenadrine 30 mg/mL Inj 2 mL 60 MG IM (09:24)
[2024-08-15] MEDS: dexamethasone 10 mg/mL INJ IM (09:24)
[2024-08-15] MEDS: ketorolac 60 mg/2 mL INJ IM (09:24)
[2024-08-15 09:32] VITALS: BP 154/88; O2SAT 98
--- NOTE | 2024-08-15 09:35 | ED_ITS ---
HPI - Back Pain/Injury General: Chief Complaint: Back Pain/Injury Stated Complaint: back pain Time Seen by Provider: 08/15/24 08:07 History of Present Illness: 33-year-old female presents to the [facility] [place] ency room complaining of back pain. Patient has a hinged brace on her left knee she has been ambulating with that she has been going to physical therapy the day after physical therapy appointment earlier this week she began having mild back discomfort feels like she pulled a muscle in her back she denies dysuria urgency or frequency no trauma. She has not taken anything for it. Associated symptoms: Deny chills or fever(s) Related Data Home Medications Medication Instructions Recorded Confirmed fluticasone propionate 50 1 spray intranasal DAILY 07/26/23 07/25/24 mcg/actuation nasal spray,suspension fluticasone 250 mcg-salmeterol 50 1 inh inhalation BID 06/26/24 07/25/24 mcg/dose blistr powdr for inhalation (Advair Diskus) metformin 500 mg tablet 500 mg PO BID 06/26/24 07/25/24 naproxen 500 mg tablet 500 mg PO BID 06/26/24 07/25/24 Previous Rx's Medication Instructions Recorded albuterol sulfate 90 mcg/actuation 2 inh inhalation Q6H PRN shortness 09/16/23 aerosol inhaler of breath or wheezing #8.5 grams hydroxyzine HCl 50 mg tablet 50 mg PO Q6H PRN anxiety #20 tabs 08/02/24 diclofenac sodium 75 mg 75 mg PO Q12H PRN pain #20 tabs 08/15/24 tablet,delayed release prednisone 20 mg tablet 20 mg PO TID #15 tabs 08/15/24 tizanidine 4 mg tablet 4 mg PO Q6H PRN muscle spasticity 08/15/24 #20 tabs Allergies Allergy/AdvReac Type Severity Reaction Status Date / Time aspirin Allergy Severe ALGY-Difficulty Verified 08/02/24 03:36 Breathing Review of Systems Const: Denies: fever(s) or chills Card: Denies: chest pain Resp: Denies: dyspnea Musc: Denies: neck pain or back pain Skin/Breast: Denies: rash PFSH ED PFSH: Medical History Marijuana use, episodic Alcohol use disorder, severe, dependence Cigarette nicotine dependence Chronic post-traumatic stress disorder Bipolar II disorder, most recent episode hypomanic moderate severity with mixed features Psychiatric care Asthma Surgical History History of laparoscopic cholecystectomy History of tonsillectomy and adenoidectomy Hx of colonoscopy AGE 18 No significant past surgical history Social History Smoking and tobacco/nicotine status: current every day tobacco/nicotine user Alcohol intake: former Adopted: No Caregiver/support person: No Lives independently: Yes Household members: family Housing: House Marital status: Single Number of children: 0 Highest education level completed: 9th Grade service: No Current occupational status: unemployed Pets and animals: Yes Pets & animals: dog(s) Leisure activites: other Leisure activities details: river Sexually active: Yes Do you think of yourself as: Straight/Heterosexual Current gender identity: Female Sun/Anglican: Islam Special sun needs: No Agree to transfusion: Yes Physical Exam Const: COMMON NORMALS: no acute distress GENERAL APPEARANCE: cooperative and comfortable ORIENTATION/CONSCIOUSNESS: Yes awake, Yes oriented to person, Yes oriented to place and Yes oriented to time HENMT: COMMON NORMALS: normocephalic, atraumatic and hearing grossly normal bilaterally HEAD & SCALP: normocephalic and atraumatic Resp: COMMON NORMALS: normal respiratory effort, No retractions, No use of accessory muscles and clear to auscultation bilaterally AUSCULTATION: clear to auscultation bilaterally Cardio: COMMON NORMALS: regular rate, regular rhythm and No murmurs present (Cardio) RATE: regular rate RHYTHM: regular rhythm Extremity: COMMON NORMALS: normal to inspection, capillary refill normal, no clubbing, cyanosis or edema, no calf tenderness and no pedal edema Neuro: SENSORIUM/ORIENTATION: Yes oriented to person, Yes oriented to place and Yes oriented to time Skin: COMMON NORMALS: no rashes or lesions noted GENERAL SKIN EXAM: no rashes or lesions noted Course Vital Signs: Vital signs: Vital Signs Temperature 98.1 F 08/15/24 08:10 Pulse Rate 81 08/15/24 09:49 Respiratory Rate 18 08/15/24 08:10 Blood Pressure 152/78 08/15/24 09:49 Pulse Oximetry 99 08/15/24 09:49 Oxygen Delivery Me thod Room Air 08/15/24 08:10 MDM - Back Pain/Injury Medical Decision Making Exam somewhat limited due to knee brace. She does not have any radicular leg symptoms no UTI symptoms at this time. She has focal pain at the lumbosacral junction in the paraspinal muscles. Discharge patient home on prednisone taper diclofenac tizanidine as needed follow-up with primary care doctor as needed. Medical Records I reviewed the patient's medical records. Labs I reviewed the patient's lab results. All radiology interpretation(s) finalized by discharge Discharge Plan Discharge Patient Disposition: Home Clinical Impression: Strain of lumbar region Condition: Stable Prescriptions: New tizanidine 4 mg tablet 4 mg PO Q6H PRN (Reason: muscle spasticity) Qty: 20 0RF Rx Instructions: do not exceed 3 doses per 24 hrs prednisone 20 mg tablet 20 mg PO TID Qty: 15 0RF Rx Instructions: 1 p.o. 3 times daily x3 days, 1 p.o. twice daily x2 days, 1 p.o. daily x2 days diclofenac sodium 75 mg tablet,delayed release (DR/EC) 75 mg PO Q12H PRN (Reason: pain) Qty: 20 0RF No Action fluticasone propionate 50 mcg/actuation spray,suspension 1 spray INTRANASAL DAILY albuterol sulfate 90 mcg/actuation HFA aerosol inhaler 2 inh inhalation Q6H PRN (Reason: shortness of breath or wheezing) Qty: 8.5 0RF metformin 500 mg tablet 500 mg PO BID fluticasone propion-salmeterol [Advair Diskus] 250-50 mcg/dose blister with device 1 inh INHALATION BID naproxen 500 mg tablet 500 mg PO BID hydroxyzine HCl 50 mg tablet 50 mg PO Q6H PRN (Reason: anxiety) Qty: 20 0RF Discharge Orders: Discharge ED (Routine); Ordered 08/15/24 Ordered By: Josias Guerra Referrals: Jesus Gonzales MD [Primary Care Provider] - Discharge Diet: Usual diet Discharge Activity: Increase activity as tolerated Patient Instructions: Low Back Strain (ED), Lower Back Exercises (ED), Opioid Safety, Pain Management Activity Restrictions/Additional Instructions: Thank you for choosing [facility] for your healthcare needs today. It is very important that you follow up as instructed or that you return to the Emergency Department should you have concerns or if your condition changes or worsens in any way. You are seen in the emergency room for low back pain. Based on your exam and your history most likely musculoskeletal. Imaging of this area in a case like this is not particularly helpful. You are given pain medications which did help the discomfort. You likely will continue to be sore for the next few days you are given a prescription for prednisone taper to begin tomorrow use diclofenac instead of ibuprofen or Aleve and tizanidine as needed as a muscle relaxer. If your symptoms persist follow-up with your primary care physician or your orthopedic physician. Coding Level of Care Code ED Community Relations Manager for [facility] Cabrera
[2024-08-15 09:49] VITALS: BP 152/78; PULSE 81; O2SAT 99
== END 2024-08-15 09:50 | disposition home or self-care (01) ==
PROVIDERS: Emergency Provider Family Medicine; PCP Family Medicine
DX: S39.012A Strain of muscle, fascia and tendon of lower back, initial encounter (principal); Z72.0 Tobacco use; X58.XXXA Exposure to other specified factors, initial encounter
CPT/HCPCS: 96372; 99284; J1100; J1885; J2360

== ENCOUNTER 2024-11-25 09:26 | Emergency (ER) | payer MEDICAID, SELFPAY ==
[2024-06-07 12:09] VITALS: BP 155/96; BMI 41.6
[2024-11-25 10:24] VITALS: BP 144/106; PULSE 74; RESP 18; TEMP 36.7; O2SAT 97; BMI 42.9
--- NOTE | 2024-11-25 11:09 | XRR_ITS ---
PROCEDURE INFORMATION: Exam: XR Left Knee Exam date and time: 11/25/2024 11:18 AM Age: 34 years old Clinical indication: Pain; Knee; Left TECHNIQUE: Imaging protocol: Radiologic exam of the left knee. Views: 3 views. COMPARISON: MR knee LT wo con* [id number] 10/11/2023 2:36 PM FINDINGS: Bones/joints: Expected postoperative findings from interval ACL repair. Normal alignment. No acute fracture. Soft tissues: Normal. XR/XR knee LT 3V* [id number] IMPRESSION: 1. Expected postoperative findings from interval ACL repair. 2. No acute osseous abnormality.
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
--- NOTE | 2024-11-25 12:58 | PC.PHAR ---
Pt states she still takes Metformin 500mg and Advair Discus 250-50. Both are more than 3 months past due. Pt states she is not very good at taking medication.
[2024-11-25 14:15] VITALS: BP 130/96; PULSE 75; O2SAT 98
== END 2024-11-25 14:16 | disposition home or self-care (01) ==
PROVIDERS: Emergency Provider Family Medicine; PCP Family Medicine
DX: S83.92XA Sprain of unspecified site of left knee, initial encounter (principal); Z72.0 Tobacco use; Y04.0XXA Assault by unarmed brawl or fight, initial encounter
CPT/HCPCS: 29530; 73562; 99283; E0114

== ENCOUNTER 2024-12-22 17:03 | Emergency (ER) | payer MEDICAID, SELFPAY ==
[2024-06-07 12:09] VITALS: BP 155/96; BMI 41.6
[2024-12-22 17:08] VITALS: BP 163/74; PULSE 78; TEMP 36.9; O2SAT 97; BMI 42.9
[2024-12-22 18:53] VITALS: PULSE 75; RESP 16; O2SAT 97
--- NOTE | 2024-12-22 19:07 | W.ED.EXTPRO ---
HPI - Extremity Problem General: Chief complaint: Extremity Problem,Nontraumatic Stated complaint: L knee pain Time Seen by Provider: 12/22/24 18:57 History of Present Illness: 34-year-old female presents with left knee pain exacerbation. Patient has significant history of left knee surgeries including ACL reconstruction and posterolateral tendon repairs. She reports her knee buckled approximately two weeks ago, though she was able to catch herself before falling. Current pain is described as tender, particularly exacerbated by today's rainy weather and work activities. Patient notes persistent numbness in a specific area of the knee. She maintains ability to ambulate and demonstrates full range of motion despite discomfort. She has been managing pain with prescribed naproxen and is currently awaiting MRI scheduling through her orthopedic surgeon. Related Data Home Medications ?Medication ?Instructions ?Recorded ?Confirmed fluticasone propionate 50 1 spray intranasal DAILY PRN 07/26/23 12/06/24 mcg/actuation nasal allergies spray,suspension fluticasone 250 mcg-salmeterol 50 1 inh inhalation BID 06/26/24 12/06/24 mcg/dose blistr powdr for inhalation (Advair Diskus) metformin 500 mg tablet 500 mg PO BID 06/26/24 11/25/24 naproxen 500 mg tablet 500 mg PO BID 06/26/24 11/25/24 lorazepam 0.5 mg tablet 0.5 mg PO DAILY PRN Anxiety 10/23/24 12/06/24 Previous Rx's ?Medication ?Instructions ?Recorded albuterol sulfate 90 mcg/actuation 2 inh inhalation Q6H PRN shortness 09/16/23 aerosol inhaler of breath or wheezing #8.5 grams tizanidine 4 mg tablet 4 mg PO BID PRN muscle spasticity 10/23/24 #60 tabs diclofenac sodium 75 mg 75 mg PO Q12H PRN pain #20 tabs 11/25/24 tablet,delayed release Allergies Allergy/AdvReac Type Severity Reaction Status Date / Time aspirin Allergy Severe ALGY-Difficulty Verified 12/22/24 17:12 Breathing [facility] ED PFSH: Medical History Marijuana use, episodic Alcohol use disorder, severe, dependence Cigarette nicotine dependence Chronic post-traumatic stress disorder Bipolar II disorder, most recent episode hypomanic moderate severity with mixed features Psychiatric care Asthma Surgical History History of laparoscopic cholecystectomy History of tonsillectomy and adenoidectomy Hx of colonoscopy AGE 18 No significant past surgical history Social History Smoking and tobacco/nicotine status: current every day tobacco/nicotine user Alcohol intake: former Adopted: No Caregiver/support person: No Lives independently: Yes Household members: family Housing: House Marital status: Single Number of children: 0 Highest education level completed: 9th Grade service: No Current occupational status: unemployed Pets and animals: Yes Pets & animals: dog(s) Leisure activites: other Leisure activities details: river Sexually active: Yes Do you think of yourself as: Straight/Heterosexual Current gender identity: Female Sun/Orthodox: Mandaeism Special sun needs: No Agree to transfusion: Yes Physical Exam Const: COMMON NORMALS: no acute distress, average body habitus, alert and well nourished GENERAL APPEARANCE: cooperative ORIENTATION/CONSCIOUSNESS: Yes awake HENMT: COMMON NORMALS: normocephalic and atraumatic HEAD & SCALP: normocephalic and atraumatic Eye: COMMON NORMALS: conjunctivae normal CONJUNCTIVA: Yes conjunctivae normal Neck/C-Spine: GENERAL: Yes normal visual inspection Resp: COMMON NORMALS: normal respiratory effort, No retractions and No use of accessory muscles Cardio: COMMON NORMALS: regular rhythm and Peripheral pulses 2+ throughout RHYTHM: regular rhythm PERIPHERAL PULSES: Peripheral pulses 2+ throughout GI: COMMON NORMALS: Soft to palpation and non-tender PALPATION: Yes Soft to palpation Extremity: COMMON NORMALS: full ROM and no pedal edema Neuro: COMMON NORMALS: no focal motor deficits SENSORIUM/ORIENTATION: Yes alert Skin: COMMON NORMALS: no rashes or lesions noted GENERAL SKIN EXAM: no rashes or lesions noted Course Vital Signs: Vital signs: Vital Signs Temperature 98.4 F 12/22/24 17:08 Pulse Rate 75 12/22/24 18:53 Respiratory Rate 16 12/22/24 18:53 Blood Pressure 163/74 12/22/24 17:08 Pulse Oximetry 97 12/22/24 18:53 Oxygen Delivery Me thod Room Air 12/22/24 17:08 MDM - Extremity (Nontraumatic) Medical Decision Making ROS: Constitutional: Denies fever, chills Musculoskeletal: Positive for left knee pain and tenderness Neurological: Reports numbness in specific area of left knee All other systems reviewed and negative MEDICATIONS AND ALLERGIES: Current Medications: - Albuterol inhaler - Wellbutrin - Metformin - Naproxen twice daily - Topiramate for migraines - Has nebulizer for home use Allergies: - Aspirin PAST HISTORICAL DATA: Past Medical History: - Asthma - Migraines Past Surgical History: - Left knee ACL reconstruction - Left knee posterolateral tendon repairs - Tonsillectomy - Cholecystectomy PHYSICAL EXAM: General: Alert, non-toxic appearing, in no apparent distress HEENT: Head normocephalic and atraumatic. Mucous membranes moist Neck: Supple Respiratory: No increased work of breathing, No wheezing Cardiac: Regular rate and rhythm, 2+ pulses in all extremities Abdomen: Soft, non-distended, no rebound or guarding Musculoskeletal: Left knee with full range of motion. Tenderness noted. No acute swelling or deformity Neuro: Cranial nerves grossly intact, no focal motor deficits noted. Area of numbness reported in left knee INITIAL IMPRESSION AND PLAN: Given the history and presentation, the primary working diagnosis is left knee pain with history of multiple knee surgeries. Additional considerations include possible internal derangement versus weather-related pain exacerbation. Based on patient's history of previous repairs and current symptoms, plan is for supportive care and documentation for work. TEST INTERPRETATIONS: No diagnostic tests performed during this encounter. PROCEDURES: No procedures performed during this encounter. CONSIDERED BUT NOT PERFORMED: X-ray considered but not performed due to ligamentous nature of complaint and recent surgical history. Patient already scheduled for MRI through orthopedics. FINAL IMPRESSION: Based on all the above, my clinical impression is most compatible with left knee pain exacerbation in the setting of previous ACL reconstruction and tendon repairs. The clinical picture is not currently suggestive of acute fracture, infection, or DVT. Although other conditions were also considered, they were deemed unlikely based on the clinical information available. CLINICAL DISPOSITION: The patient's current condition is stable in my estimation and the most appropriate and indicated disposition at this time is discharge home. Rationale for Safe Discharge: Patient is stable, ambulatory with full range of motion, and has appropriate follow-up already arranged with orthopedics. She has adequate pain control with current medications and demonstrates understanding of her condition. No acute surgical intervention is needed at this time. CASE SUMMARY: 34-year-old female with history of left knee surgeries including ACL reconstruction presented with knee pain exacerbation triggered by weather and work activities. Recent episode of knee buckling two weeks ago. Examination revealed full range of motion with tenderness and reported numbness. Patient is currently awaiting MRI through orthopedics. Treated conservatively and discharged with work documentation and instructions to follow up with orthopedic surgeon as scheduled. No radiology studies performed this visit Discharge Plan Discharge Patient Disposition: Home Clinical Impression: Chronic knee pain Condition: Stable Prescriptions: No Action lorazepam 0.5 mg tablet 0.5 mg PO DAILY PRN (Reason: Anxiety) tizanidine 4 mg tablet 4 mg PO BID PRN (Reason: muscle spasticity) Qty: 60 0RF fluticasone propionate 50 mcg/actuation spray,suspension 1 spray INTRANASAL DAILY PRN (Reason: allergies) albuterol sulfate 90 mcg/actuation HFA aerosol inhaler 2 inh inhalation Q6H PRN (Reason: shortness of breath or wheezing) Qty: 8.5 0RF metformin 500 mg tablet 500 mg PO BID fluticasone propion-salmeterol [Advair Diskus] 250-50 mcg/dose blister with device 1 inh INHALATION BID naproxen 500 mg tablet 500 mg PO BID diclofenac sodium 75 mg tablet,delayed release (DR/EC) 75 mg PO Q12H PRN (Reason: pain) Qty: 20 0RF Discharge Orders: Discharge ED (Routine); Ordered 12/22/24 Ordered By: Dave Addison Referrals: Jesus Gonzales MD [Primary Care Provider, [facility]] Discharge Activity: Increase activity as tolerated Patient Instructions: Knee Pain (ED), Opioid Safety, Pain Management Activity Restrictions/Additional Instructions: DISCHARGE INSTRUCTIONS: Continue current medications as prescribed, including naproxen for pain management. Apply ice for 20 minutes at a time as needed for pain relief. Elevate the leg when resting to help minimize swelling. Return to the Emergency Department if you experience severe increase in pain, significant swelling, inability to bear weight, or any other concerning symptoms. Follow up with your orthopedic surgeon as scheduled and continue to pursue scheduled MRI. Print Language: Croatian Coding Level of Care Code ED Rac Specialist for Ko Cabrera
[2024-12-22 19:18] VITALS: BP 146/112; PULSE 72; RESP 16; O2SAT 96
== END 2024-12-22 19:19 | disposition home or self-care (01) ==
PROVIDERS: Emergency Provider Student in an Organized Health Care Education/Training Program; PCP Family Medicine
DX: M25.562 Pain in left knee (principal); G89.29 Other chronic pain
CPT/HCPCS: 99282

== ENCOUNTER 2025-01-04 10:35 | Emergency (ER) | payer MEDICAID, SELFPAY ==
[2024-06-07 12:09] VITALS: BP 155/96; BMI 41.6
--- NOTE | 2025-01-04 10:48 | XRR_ITS ---
PROCEDURE INFORMATION: Exam: XR Left Knee Exam date and time: 01/04/2025 11:48 AM Age: 34 years old Clinical indication: Left; Lt knee pain/swelling after twisting injury x 1 day ago; HX acl, pcl repair x 9mo ago TECHNIQUE: Imaging protocol: Radiologic exam of the left knee. Views: 3 views. COMPARISON: CR XR knee LT 3V* [id number] 11/25/2024 11:18 AM FINDINGS: Bones/joints: Postsurgical changes of the medial knee joint from ACL repair. No definite new acute osseous abnormality. No dislocation. No knee joint effusion. Soft tissues: Normal. XR/XR knee LT 3V* [id number] IMPRESSION: As above.
[2025-01-04 11:04] VITALS: BP 123/90; PULSE 71; RESP 16; TEMP 36.7; O2SAT 96; BMI 43.7
--- NOTE | 2025-01-04 11:31 | ED_ITS ---
HPI - Extremity Problem General: Chief complaint: Extremity Injury, Lower Stated complaint: left knee pain from fall Time Seen by Provider: 01/04/25 11:10 Source: patient Mode of arrival: ambulatory Limitations: no limitations History of Present Illness: 34-year-old female history of multiple s urgeries on the left knee states that she had slipped at work yesterday and felt a pop in her left knee has been having increased pain since then states it is very painful to try to bear weight she is able to bear weight but states that it is difficult to walk denies any other injuries rates her pain at 7 out of 10 currently Associated symptoms: Deny chest pain, fever(s) or rash Related Data Home Medications ?Medication ?Instructions ?Recorded ?Confirmed fluticasone propionate 50 1 spray intranasal DAILY PRN 07/26/23 01/01/25 mcg/actuation nasal allergies spray,suspension fluticasone 250 mcg-salmeterol 50 1 inh inhalation BID 06/26/24 01/01/25 mcg/dose blistr powdr for inhalation (Advair Diskus) metformin 500 mg tablet 500 mg PO BID 06/26/2401/01 naproxen 500 mg tablet 500 mg PO BID 06/26/2401/01 lorazepam 0.5 mg tablet 0.5 mg PO DAILY PRN Anxiety 10/23/24 01/01/25 Previous Rx's ?Medication ?Instructions ?Recorded albuterol sulfate 90 mcg/actuation 2 inh inhalation Q6 H PRN shortness 09/16/23 aerosol inhaler of breath or wheezing #8.5 g aarti tizanidine 4 mg tablet 4 mg PO BID PRN muscle spast icity 10/23/24 #60 tabs diclofenac sodium 75 mg 75 mg PO Q12H PRN pain #20 t abs 11/25/24 tablet,delayed release hydrocodone 5 mg-acetaminophen 325 1 tab PO Q6H PRN pa in #14 tabs 01/04/25 mg tablet Allergies Allergy/AdvReac Type Severity Reaction Status Date / Time aspirin Allergy Severe ALGY-Difficulty Verified 01/01/25 07:38 Breathing Review of Systems Const: Denies: fever(s), chills, body aches or change in appetite ENMT: Denies: throat pain or dental pain Card: Denies: chest pain Resp: Denies: dyspnea GI: Denies: abdominal pain, nausea, vomiting or diarrhea Musc: Reports: extremity pain; Denies: neck pain or back pain Skin/Breast: Denies: rash Neuro: Denies: headache(s) PFSH ED PFSH: Medical History Marijuana use, episodic Alcohol use disorder, severe, dependence Cigarette nicotine dependence Chronic post-traumatic stress disorder Bipolar II disorder, most recent episode hypomanic moderate severity with mixed features Psychiatric care Asthma Surgical History History of laparoscopic cholecystectomy History of tonsillectomy and adenoidectomy Hx of colonoscopy AGE 18 No significant past surgical history Family History Denies family history of Colon cancer Ovarian cancer Diabetes Heart disease Breast cancer Hypertension Uterine cancer Thyroid disease Stroke Social History Smoking and tobacco/nicotine status: current every day tobacco/nicotine user Alcohol intake: former Adopted: No Caregiver/support person: No Lives independently: Yes Household members: family Housing: House Marital status: Single Number of children: 0 Highest education level completed: 9th Grade service: No Current occupational status: unemployed Pets and animals: Yes Pets & animals: dog(s) Leisure activites: other Leisure activities details: river Sexually active: Yes Do you think of yourself as: Straight/Heterosexual Current gender identity: Female Sun/Denominational: Mandaen Special sun needs: No Agree to transfusion: Yes Physical Exam Const: COMMON NORMALS: no acute distress, patient oriented x3 and healthy appearing HENMT: COMMON NORMALS: normocephalic and atraumatic HEAD & SCALP: normocephalic and atraumatic Eye: COMMON NORMALS: conjunctivae normal CONJUNCTIVA: Yes conjunctivae normal Neck/C-Spine: COMMON NORMALS: full ROM and supple Chest: COMMONS NORMALS: normal inspection of the chest Resp: COMMON NORMALS: normal respiratory effort Cardio: COMMON NORMALS: regular rate RATE: regular rate Extremity: NARRATIVE EXTREMITY EXAM: Tenderness on exam left knee no obvious deformity distal pulse sensation tact Neuro: COMMON NORMALS: patient oriented x3, moves all extremities and no focal motor deficits Psych: COMMON NORMALS: mental status grossly normal, Normal thought process present and cooperative THOUGHT PROCESS: Normal thought process present Skin: COMMON NORMALS: no rashes or lesions noted and no wounds GENERAL SKIN EXAM: no rashes or lesions noted Course Vital Signs: Vital signs: Vital Signs Temperature 98.1 F 01/04/25 11:04 Pulse Rate 76 01/04/25 11:35 Respiratory Rate 16 01/04/25 11:35 Blood Pressure 152/92 01/04/25 11:35 Pulse Oximetry 99 01/04/25 11:35 Oxygen Delivery Me thod Room Air 01/04/25 11:04 MDM - Extremity (Nontraumatic) Medical Decision Making Patient presents here with left knee pain x-ray here is negative she has a knee immobilizer crutches at home she sees orthopedist in [place] has an MRI scheduled write her pain meds she has to follow-up as scheduled return if worsening Medical Records I reviewed the patient's medical records. XR interpretation done by ED provider, pending radiology final review ED provider radiology interpretation(s): xr L knee: no acute abnormality Discharge Plan Discharge Patient Disposition: Home Clinical Impression: Left knee sprain Condition: Stable Prescriptions: New hydrocodone-acetaminophen 5-325 mg tablet 1 tab PO Q6H PRN (Reason: pain) Qty: 14 0RF No Action lorazepam 0.5 mg tablet 0.5 mg PO DAILY PRN (Reason: Anxiety) tizanidine 4 mg tablet 4 mg PO BID PRN (Reason: muscle spasticity) Qty: 60 0RF fluticasone propionate 50 mcg/actuation spray,suspension 1 spray INTRANASAL DAILY PRN (Reason: allergies) albuterol sulfate 90 mcg/actuation HFA aerosol inhaler 2 inh inhalation Q6H PRN (Reason: shortness of breath or wheezing) Qty: 8.5 0RF metformin 500 mg tablet 500 mg PO BID fluticasone propion-salmeterol [Advair Diskus] 250-50 mcg/dose blister with device 1 inh INHALATION BID naproxen 500 mg tablet 500 mg PO BID diclofenac sodium 75 mg tablet,delayed release (DR/EC) 75 mg PO Q12H PRN (Reason: pain) Qty: 20 0RF Discharge Orders: Discharge ED (Routine); Ordered 01/04/25 Ordered By: Jessenia Hylton Referrals: Jesus Gonzales MD [Primary Care Provider, [facility]] Discharge Diet: Advance as tolerated Discharge Activity: Increase activity as tolerated Patient Instructions: Knee Sprain (ED) Print Language: Tuvaluan Coding Level of Care Code ED Traveling Crane Operator for Ko Cabrera
[2025-01-04] MEDS: HYDROcodone-acetaminophen 5-325 mg Tablet 1 TAB PO (11:34)
[2025-01-04 11:35] VITALS: BP 152/92; PULSE 76; RESP 16; O2SAT 99
== END 2025-01-04 12:31 | disposition home or self-care (01) ==
PROVIDERS: Emergency Provider Emergency Medicine; PCP Family Medicine
DX: S83.92XA Sprain of unspecified site of left knee, initial encounter (principal); Z79.84 Long term (current) use of oral hypoglycemic drugs; Z72.0 Tobacco use; W01.0XXA Fall on same level from slipping, tripping and stumbling without subsequent striking against object, initial encounter
CPT/HCPCS: 73562; 99283; J9999

== ENCOUNTER 2025-01-12 08:23 | Emergency (ER) | payer MEDICAID, SELFPAY ==
[2024-06-07 12:09] VITALS: BP 155/96; BMI 41.6
--- NOTE | 2025-01-12 08:31 | XRR_ITS ---
PROCEDURE INFORMATION: Exam: XR Chest Exam date and time: 01/12/2025 8:45 AM Age: 34 years old Clinical indication: Congestion; Cough; Asthma attack TECHNIQUE: Imaging protocol: Radiologic exam of the chest. Views: 1 view. COMPARISON: CT angio chest PE protcl [id number] 06/26/2024 2:08 PM FINDINGS: Lungs: Patchy opacities in bilateral lower lung zones that might represent atelectasis versus infiltrates. Pleural spaces: Unremarkable. No pleural effusion. No pneumothorax. Heart/Mediastinum: Unremarkable. No cardiomegaly. Bones/joints: Unremarkable. XR/XR chest 1V portable [id number] IMPRESSION: Patchy opacities in bilateral lower lung zones that might represent atelectasis versus infiltrates.
[2025-01-12 08:32] VITALS: BP 136/85; PULSE 82; RESP 18; TEMP 36.6; O2SAT 98
--- NOTE | 2025-01-12 08:40 | W.ED.SOB ---
HPI - SOB/Dyspnea General: Chief Complaint: Upper Respiratory Infection Stated Complaint: congestion/cough Time Seen by Provider: 01/12/25 08:30 Source: patient Mode of arrival: ambulatory Limitations: no limitations History of Present Illness: HPI Narrative: 34-year-old female has a history of asthma states over the last week she has been having increasing wheezing and a nonproductive cough with some mild dyspnea. She denies any fever denies any pain denies any worsening improving factors. Associated symptoms: Deny abdominal pain, chest pain, fever(s), nausea or vomiting Related Data Home Medications ?Medication ?Instructions ?Recorded ?Confirmed fluticasone propionate 50 1 spray intranasal DAILY PRN 07/26/23 01/01/25 mcg/actuation nasal allergies spray,suspension fluticasone 250 mcg-salmeterol 50 1 inh inhalation BID 06/26/24 01/01/25 mcg/dose blistr powdr for inhalation (Advair Diskus) metformin 500 mg tablet 500 mg PO BID 06/26/24 01/01/25 naproxen 500 mg tablet 500 mg PO BID 06/26/24 01/01/25 lorazepam 0.5 mg tablet 0.5 mg PO DAILY PRN Anxiety 10/23/24 01/01/25 Previous Rx's ?Medication ?Instructions ?Recorded albuterol sulfate 90 mcg/actuation 2 inh inhalation Q6H PRN shortness 09/16/23 aerosol inhaler of breath or wheezing #8.5 grams tizanidine 4 mg tablet 4 mg PO BID PRN muscle spasticity 10/23/24 #60 tabs diclofenac sodium 75 mg 75 mg PO Q12H PRN pain #20 tabs 11/25/24 tablet,delayed release hydrocodone 5 mg-acetaminophen 325 1 tab PO Q6H PRN pain #14 tabs 01/04/25 mg tablet albuterol sulfate 2.5 mg/3 mL 2.5 mg (3 mL) inhalation Q4H PRN 01/12/25 (0.083 %) solution for nebulization shortness of breath or wheezing #90 mL doxycycline hyclate 100 mg tablet 100 mg PO BID 7 days #14 tabs 01/12/25 prednisone 50 mg tablet 50 mg PO DAILY #5 tabs 01/12/25 Allergies Allergy/AdvReac Type Severity Reaction Status Date / Time aspirin Allergy Severe ALGY-Difficulty Verified 01/01/25 07:38 Breathing Review of Systems Const: Denies: fever(s), chills, body aches or change in appetite ENMT: Denies: throat pain or dental pain Card: Denies: chest pain Resp: Reports: dyspnea, non-productive cough and wheezing GI: Denies: abdominal pain, nausea, vomiting or diarrhea Musc: Denies: neck pain or back pain Skin/Breast: Denies: rash Neuro: Denies: headache(s) PFSH ED PFSH: Medical History Marijuana use, episodic Alcohol use disorder, severe, dependence Cigarette nicotine dependence Chronic post-traumatic stress disorder Bipolar II disorder, most recent episode hypomanic moderate severity with mixed features Psychiatric care Asthma Surgical History History of laparoscopic cholecystectomy History of tonsillectomy and adenoidectomy Hx of colonoscopy AGE 18 No significant past surgical history Family History Denies family history of Colon cancer Ovarian cancer Diabetes Heart disease Breast cancer Hypertension Uterine cancer Thyroid disease Stroke Social History Smoking and tobacco/nicotine status: current every day tobacco/nicotine user Alcohol intake: former Adopted: No Caregiver/support person: No Lives independently: Yes Household members: family Housing: House Marital status: Single Number of children: 0 Highest education level completed: 9th Grade service: No Current occupational status: unemployed Pets and animals: Yes Pets & animals: dog(s) Leisure activites: other Leisure activities details: river Sexually active: Yes Do you think of yourself as: Straight/Heterosexual Current gender identity: Female Sun/Anabaptism: Jainism Special sun needs: No Agree to transfusion: Yes Physical Exam Const: COMMON NORMALS: no acute distress, patient oriented x3 and healthy appearing HENMT: COMMON NORMALS: normocephalic and atraumatic HEAD & SCALP: normocephalic and atraumatic Eye: COMMON NORMALS: conjunctivae normal CONJUNCTIVA: Yes conjunctivae normal Neck/C-Spine: COMMON NORMALS: full ROM and supple Chest: COMMONS NORMALS: normal inspection of the chest Resp: COMMON NORMALS: No retractions and No use of accessory muscles AUSCULTATION: wheezes Cardio: COMMON NORMALS: regular rate, regular rhythm and No murmurs present (Cardio) RATE: regular rate RHYTHM: regular rhythm Extremity: COMMON NORMALS: normal to inspection and full ROM Neuro: COMMON NORMALS: patient oriented x3, moves all extremities and no focal motor deficits Psych: COMMON NORMALS: mental status grossly normal, Normal thought process present and cooperative THOUGHT PROCESS: Normal thought process present Skin: COMMON NORMALS: no rashes or lesions noted and no wounds GENERAL SKIN EXAM: no rashes or lesions noted Course Vital Signs: Vital signs: Vital Signs Temperature 97.9 F 01/12/25 08:32 Pulse Rate 75 01/12/25 09:00 Respiratory Rate 18 01/12/25 09:00 Blood Pressure 126/76 01/12/25 08:53 Pulse Oximetry 99 01/12/25 09:00 Oxygen Delivery Me thod Room Air 01/12/25 09:00 MDM - SOB/Dyspnea Medical Decision Making Patient presents with cough congestion wheezing likely bronchitis she does feel improved here we will place her on steroids will prescribe albuterol along with antibiotics she is follow-up with PCP return if worsening she understands agrees plan Medical Records I reviewed the patient's medical records. Lab Data Labs/Radiology: Radiology Impressions Chest X-Ray 01/12/25 08:31 IMPRESSION: Patchy opacities in bilateral lower lung zones that might represent atelectasis versus infiltrates. All radiology interpretation(s) finalized by discharge Discharge Plan Discharge Patient Disposition: Home Clinical Impression: Bronchitis Condition: Stable Prescriptions: New albuterol sulfate 2.5 mg /3 mL (0.083 %) solution for nebulization 2.5 mg INHALATION Q4H PRN (Reason: shortness of breath or wheezing) Qty: 90 0RF prednisone 50 mg tablet 50 mg PO DAILY Qty: 5 0RF doxycycline hyclate 100 mg tablet 100 mg PO BID 7 Days Qty: 14 0RF No Action lorazepam 0.5 mg tablet 0.5 mg PO DAILY PRN (Reason: Anxiety) tizanidine 4 mg tablet 4 mg PO BID PRN (Reason: muscle spasticity) Qty: 60 0RF hydrocodone-acetaminophen 5-325 mg tablet 1 tab PO Q6H PRN (Reason: pain) Qty: 14 0RF fluticasone propionate 50 mcg/actuation spray,suspension 1 spray INTRANASAL DAILY PRN (Reason: allergies) albuterol sulfate 90 mcg/actuation HFA aerosol inhaler 2 inh inhalation Q6H PRN (Reason: shortness of breath or wheezing) Qty: 8.5 0RF metformin 500 mg tablet 500 mg PO BID fluticasone propion-salmeterol [Advair Diskus] 250-50 mcg/dose blister with device 1 inh INHALATION BID naproxen 500 mg tablet 500 mg PO BID diclofenac sodium 75 mg tablet,delayed release (DR/EC) 75 mg PO Q12H PRN (Reason: pain) Qty: 20 0RF Discharge Orders: Discharge ED (Routine); Ordered 01/12/25 Ordered By: Jessenia Hylton Referrals: Jesus Gonzales MD [Primary Care Provider, Family Practice] - 4-7 days Discharge Diet: Advance as tolerated Discharge Activity: Resume usual activity Patient Instructions: Bronchitis (Acute) - Adult Stand Alone Forms: Work/School Release Print Language: Citizen Of [place] Coding Level of Care Code ED Powerhouse Operator for Ko Cabrera
[2025-01-12] MEDS: predniSONE 20 mg Tablet 60 MG PO (08:49)
[2025-01-12 08:53] VITALS: BP 126/76; PULSE 78; RESP 18; O2SAT 97
[2025-01-12] MEDS: ipratropium-albuterol 3 mL Neb INHALATION (08:59)
[2025-01-12 09:00] VITALS: PULSE 75; RESP 18; O2SAT 99
[2025-01-12] MEDS: doxycycline 100 mg Tablet PO (09:25)
[2025-01-12 09:29] VITALS: BP 131/88; PULSE 78; O2SAT 97
[2025-01-12 09:33] LABS: Influenza A NEGATIVE (Negative); Influenza B NEGATIVE (Negative); Respiratory Syncytial Virus Ce NEGATIVE (Negative); SARS-CoV-2 PCR NEGATIVE (Negative)
== END 2025-01-12 09:30 | disposition home or self-care (01) ==
PROVIDERS: Emergency Provider Emergency Medicine; PCP Family Medicine
DX: J40 Bronchitis, not specified as acute or chronic (principal); Z79.84 Long term (current) use of oral hypoglycemic drugs; Z72.0 Tobacco use
CPT/HCPCS: 71045; 87637; 94640; 99284; J7512; J9999

== ENCOUNTER 2025-01-24 07:03 | Outpatient (CLI) | payer MEDICAID, SELFPAY ==
[2024-06-07 12:09] VITALS: BP 155/96; BMI 41.6
--- NOTE | 2025-01-24 07:15 | MR_ITS ---
WS: [id number] MRI LEFT KNEE NONCONTRAST TECHNIQUE: Axial PD, coronal PD fat sat, coronal PD, sagittal PD, and sagittal PD fat-sat images obtained. CLINICAL INFORMATION: Left knee pain. History of dislocation with ACL repair. COMPARISON: 2023 FINDINGS: Evidence of interval ACL and PCL repair with tibial tunnels. The ACL and PCL grafts appear grossly intact. Increased T1 and T2 signal involving the ACL graft due to mucoid degeneration. Bright T2 signal in the mid ACL graft suspicious for partial tear in the midportion of the graft. Recommend correlation for recent injury or instability. 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 Distal quadriceps and patella tendons are intact. Chronic thinning of the medial and lateral meniscus which appear intact. No acute appearing meniscal tears. Moderate to advanced chondromalacia patella. Medial and lateral patellar retinaculum appear intact. Somewhat shallow trochlear groove previously described. Recommend correlation for patellar instability. Medial collateral ligament appears intact. Lateral collateral ligament repair with femoral and fibular head anchors appears intact. MR/MR knee LT wo con* [id number] IMPRESSION: 1. Evidence of interval ACL and PCL repair. Grafts appear intact. 2. Increased T1 and T2 signal involving the ACL graft with more intense signal involving the mid ACL. Most of this is likely due to mucoid degeneration howev er recommend correlation for recent injury with partial intrasubstance tear. 3. Lateral collateral ligament repair with femoral and fibular head anchors ap pears intact. 4. Chronic thinning of the medial and lateral meniscus which appears intact. 5. Moderate to advanced chondromalacia patella with somewhat shallow trochlear groove previously described. Recommend correlation for patellar instability. 6. 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
== END 2025-01-24 07:04 | disposition home or self-care (01) ==
LOC: RAD 07:04
PROVIDERS: PCP Family Medicine; Visit Provider Orthopaedic Surgery
DX: M22.42 Chondromalacia patellae, left knee (principal); M17.12 Unilateral primary osteoarthritis, left knee
CPT/HCPCS: 73721

== ENCOUNTER 2025-06-08 18:10 | Emergency (ER) | payer MEDICAID, SELFPAY ==
[2024-06-07 12:09] VITALS: BP 155/96; BMI 41.6
--- OUTSIDE RECORDS SUMMARY | 2025-06-08 18:14 | XMS_ITS | Encounter Summary ---
Author Organization [facility] Address [address] [place] [address] Care Team Providers Care Cement Grinding Mill Operator Name Role Phone Shima Tavarez Dena GAONAP Primary Care Provider [phone] Encounter Details Date Type Department Care Team (Late st Contact Info) Description 08/13/2007 Outpatient Historical [facility] Family Medicine [facility] [address] [place] [address] [place] [address] [place] [address] Social History Tobacco Use Types Packs/Day Years Used Date Smoking Tobacco: Never Assessed Comments Unknown Sex and Gender Information Value Date Recorded Sex Assigned at Female 04/12/2024 1:48 AM CDT Legal Sex Female 4:34 AM ANESTHESIOLOGIST/PHYSICIAN Gender Identity Female 04/12/2024 1:48 AM CDT Sexual Orientation Not on file documented as of this encounter Last Filed Vital Signs Vital Sign Reading Time Taken Comments Blood Pressure 100/72 08/13/2007 9:00 AM ANESTHESIOLOGIST/PHYSICIAN Pulse 84 08/13/2007 9:00 AM ANESTHESIOLOGIST/PHYSICIAN Temperature - - Respiratory Rate - - Oxygen Saturation - - Inhaled Oxygen Concentration - - Weight 82 kg (180 lb 12 oz) 08/13/2007 9:[address] Height 163.2 cm (5' 4.25 ) 08/13/2007 9:00 AM CS T Body Mass Index 30.78 08/13/2007 9:00 AM ANESTHESIOLOGIST/PHYSICIAN Body Mass Index Percentile 95.72% 08/13/2007 9:0 0 AM ANESTHESIOLOGIST/PHYSICIAN Growth Chart: [facility] (Girls, 2- 20 Years) documented in this encounter Plan of Treatment Not on file documented as of this encounter Visit Diagnoses Not on filedocumented in this encounter Care Teams Cement Grinding Mill Operator Relationship Specialty Start Date End Date Shima Tavarez, ROXIE [address] [place] [address] PCP - General 12/28/20 documented as of this encounter
--- OUTSIDE RECORDS SUMMARY | 2025-06-08 18:14 | XMS_ITS | Encounter Summary ---
Author Organization [facility] Address [address] [place] [address] Care Team Providers Care Medical Service Technician Name Role Phone Shima Tavarez Primary Care Provider [phone] Encounter Details Date Type Department Care Team (Late st Contact Info) Description 06/26/2002 Outpatient Historical [facility] Family Medicine [facility] [address] [place] [address] [place] [address] [place] [address] Social History Tobacco Use Types Packs/Day Years Used Date Smoking Tobacco: Never Assessed Comments Unknown Sex and Gender Information Value Date Recorded Sex Assigned at Female 04/12/2024 1:48 AM CDT Legal Sex Female 4:34 AM SPECIAL AGENT SECRET SERVICE Gender Identity Female 04/12/2024 1:48 AM CDT Sexual Orientation Not on file documented as of this encounter Plan of Treatment Not on file documented as of this encounter Visit Diagnoses Not on filedocumented in this encounter Care Teams Medical Service Technician Relationship Specialty Start Date End Date Shima Tavarez FNP [address] [place] [address] PCP - General 12/28/20 documented as of this encounter
--- OUTSIDE RECORDS SUMMARY | 2025-06-08 18:14 | XMS_ITS | Encounter Summary ---
Author Organization [facility] Address [address] [place] [address] Care Team Providers Care X Ray Inspector Name Role Phone Shima Tavarez Primary Care Provider [phone] Encounter Details Date Type Department Care Team (Late st Contact Info) Description 06/14/2002 Outpatient Historical [facility] Medicine [facility] [address] [place] [address] Grace Miller MD NO ADDRESS ON FILE Social History Tobacco Use Types Packs/Day Years Used Date Smoking Tobacco: Never Assessed Comments Unknown Sex and Gender Information Value Date Recorded Sex Assigned at Female 04/12/2024 1:48 AM CDT Legal Sex Female 4:34 AM ELECTRICIAN MAINTENANCE Gender Identity Female 04/12/2024 1:48 AM CDT Sexual Orientation Not on file documented as of this encounter Plan of Treatment Not on file documented as of this encounter Procedures Procedure Name Priority Date/Time Associated Diagnosis Comments CHG TD VACCINE >7 YO IM VFC 06/14/2002 12:00 AM ELECTRICIAN MAINTENANCE documented in this encounter Visit Diagnoses Not on filedocumented in this encounter Care Teams X Ray Inspector Relationship Specialty Start Date End Date Shima Tavarez FNP [address] [place] [phone] PCP - General 12/28/20 documented as of this encounter
--- OUTSIDE RECORDS SUMMARY | 2025-06-08 18:14 | XMS_ITS | Encounter Summary ---
Author Organization [facility] Address [address] [place] [address] Care Team Providers Care Soft Shoe Dancer Name Role Phone Shima Tavarez Primary Care Provider [phone] [phone] Encounter Details Date Type Department Care Team (Late st Contact Info) Description 05/19/2003 Emergency [facility] Haile Mcgarry MD NO ADDRESS ON FILE Er, Authorized P NO ADDRESS ON FILE ASTHMA UNSPECIFIED WITH EXAC (Primary Dx) Social History Tobacco Use Types Packs/Day Years Used Date Smoking Tobacco: Never Assessed Comments Unknown Sex and Gender Information Value Date Recorded Sex Assigned at Female 04/12/2024 1:48 AM CDT Legal Sex Female 4:34 AM SULFATE DRIER MACHINE OPERATOR Gender Identity Female 04/12/2024 1:48 AM CDT Sexual Orientation Not on file documented as of this encounter Plan of Treatment Not on file documented as of this encounter Visit Diagnoses Diagnosis Unspecified asthma, with exacerbation- Primary documented in this encounter Care Teams Soft Shoe Dancer Relationship Specialty Start Date End Date Shima Tavarez FNP [address] [place] [phone] PCP - General 12/28/20 documented as of this encounter
--- OUTSIDE RECORDS SUMMARY | 2025-06-08 18:14 | XMS_ITS | Encounter Summary ---
Author Organization [facility] Address [address] [place] [address] Care Team Providers Care Inspector Metal Fabricating Name Role Phone Shima Tavarez Primary Care Provider [phone] Encounter Details Date Type Department Care Team (Late st Contact Info) Description 07/13/2007 Outpatient Historical [facility] Family Medicine [facility] [address] [facility] [address] [place] [address] [place] [address] [place] [address] Social History Tobacco Use Types Packs/Day Years Used Date Smoking Tobacco: Never Assessed Comments Unknown Sex and Gender Information Value Date Recorded Sex Assigned at Female 04/12/2024 1:48 AM CDT Legal Sex Female 4:34 AM HEALTHCARE EDUCATOR Gender Identity Female 04/12/2024 1:48 AM CDT Sexual Orientation Not on file documented as of this encounter Last Filed Vital Signs Vital Sign Reading Time Taken Comments Blood Pressure 118/70 07/13/2007 3:30 PM HEALTHCARE EDUCATOR Pulse 68 07/13/2007 3:30 PM HEALTHCARE EDUCATOR Temperature - - Respiratory Rate - - Oxygen Saturation - - Inhaled Oxygen Concentration - - Weight 78.9 kg (174 lb) 07/13/2007 3:30 PM HEALTHCARE EDUCATOR Height - - Body Mass Index - - documented in this encounter Plan of Treatment Not on file documented as of this encounter Visit Diagnoses Not on filedocumented in this encounter Care Teams Inspector Metal Fabricating Relationship Specialty Start Date End Date Shima Tavarez FNP [address] [place] [phone] PCP - General 12/28/20 documented as of this encounter
--- OUTSIDE RECORDS SUMMARY | 2025-06-08 18:14 | XMS_ITS | Encounter Summary ---
Author Organization [facility] Address [address] [place] [address] Care Team Providers Care Wireless Construction Manager Name Role Phone Shima Tavarez Primary Care Provider [phone] [phone] Encounter Details Date Type Department Care Team (Late st Contact Info) Description 12/30/2002 Emergency [facility] Heydi Miguel MD NO ADDRESS ON FILE Er, Authorized P NO ADDRESS ON FILE STREP SORE THROAT (Primary Dx) Social History Tobacco Use Types Packs/Day Years Used Date Smoking Tobacco: Never Assessed Comments Unknown Sex and Gender Information Value Date Recorded Sex Assigned at Female 04/12/2024 1:48 AM CDT Legal Sex Female 4:34 AM HAT SIZER Gender Identity Female 04/12/2024 1:48 AM CDT Sexual Orientation Not on file documented as of this encounter Plan of Treatment Not on file documented as of this encounter Visit Diagnoses Diagnosis Streptococcal sore throat- Primary documented in this encounter Care Teams Wireless Construction Manager Relationship Specialty Start Date End Date Shima Tavarez FNP [address] [place] [phone] PCP - General 12/28/20 documented as of this encounter
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
--- OUTSIDE RECORDS SUMMARY | 2025-06-08 18:14 | XMS_ITS | Encounter Summary ---
Author Organization [facility] Address [address] [place] [address] Care Team Providers Care Project Management Intern Name Role Phone Shima Tavarez Primary Care Provider +1 [phone] Encounter Details Date Type Department Care Team (Late st Contact Info) Description 07/29/2002 Outpatient Historical [facility] Family Medicine [place] [address] [facility] [address] [place] [address] [place] [address] 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
--- OUTSIDE RECORDS SUMMARY | 2025-06-08 18:14 | XMS_ITS | Encounter Summary ---
Author Organization [facility] Address [address] [place] [address] Care Team Providers Care Nutter Up Name Role Phone Shima Tavarez Primary Care Provider +1 [phone] Encounter Details Date Type Department Care Team (Late st Contact Info) Description 02/18/2007 Emergency [facility] Wilfredo Cardoso, JUNI [address] [address] [place], Authorized P NO ADDRESS ON FILE Unspecified Site of Ankle Sprain and Strain (Primary Dx) Social History Tobacco Use Types Packs/Day Years Used Date Smoking Tobacco: Never Assessed Comments Unknown Sex and Gender Information Value Date Recorded Sex Assigned at Female 04/12/2024 1:48 AM CDT Legal Sex Female 4:34 AM COMMUNITY SUPPORT ASSOCIATE Gender Identity Female 04/12/2024 1:48 AM CDT Sexual Orientation Not on file documented as of this encounter Plan of Treatment Not on file documented as of this encounter Visit Diagnoses Diagnosis Sprain of ankle, unspecified site- Primary documented in this encounter Care Teams Nutter Up Relationship Specialty Start Date End Date Shima Tavarez FNP [address] [place] [phone] PCP - General 12/28/20 documented as of this encounter
--- OUTSIDE RECORDS SUMMARY | 2025-06-08 18:14 | XMS_ITS | Encounter Summary ---
Author Organization [facility] Address [address] [place] [address] Care Team Providers Care Chief Yeoman Name Role Phone Shima Tavarez Dena [facility] Primary Care Provider [phone] [phone] Encounter Details Date Type Department Care Team (Late st Contact Info) Description 07/01/2007 Orders Only [facility] Medicine [facility] [address] [facility] [address] [place] [address] Grace Miller MD NO ADDRESS ON FILE Social History Tobacco Use Types Packs/Day Years Used Date Smoking Tobacco: Never Assessed Comments Unknown Sex and Gender Information Value Date Recorded Sex Assigned at Female 04/12/2024 1:48 AM CDT Legal Sex Female 4:34 AM HUMAN RESOURCES 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 aleve not working. SECTION 1: DOCTOR`S RESPONSE: yoly 07/01/07 at 07:47 pm MEDICATIONS: Call in to Pharmacy done AMITRIPTYLINE HCL ORAL TABLET 25 MG, 1 Every Day At Bedtime, 30 Dispensed, status: NEW PRESCRIPTION, 07/01/2007. documented in this encounter Plan of Treatment Not on file documented as of this encounter Visit Diagnoses Not on filedocumented in this encounter Care Teams Chief Yeoman Relationship Specialty Start Date End Date Shima Tavarez FNP [address] [place] [address] PCP - General 12/28/20 documented as of this encounter
--- OUTSIDE RECORDS SUMMARY | 2025-06-08 18:14 | XMS_ITS | Encounter Summary ---
Author Organization [facility] Address [address] [place] [address] Care Team Providers Care Graphic Designer Name Role Phone Shima Tavarez Primary Care Provider +1 -[phone] Encounter Details Date Type Department Care Team (Late st Contact Info) Description 07/04/2002 Outpatient Historical [facility] Family Medicine [place] [address] [address] [facility] [address] [place] [phone] [place] [address] [facility]. 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
--- OUTSIDE RECORDS SUMMARY | 2025-06-08 18:14 | XMS_ITS | Encounter Summary ---
Author Organization [facility] Address [address] [place] [address] Care Team Providers Care Agricultural Research Technician Name Role Phone Shima Tavarez Primary Care Provider +1 [phone] Encounter Details Date Type Department Care Team (Late st Contact Info) Description 04/30/2003 Emergency [facility] Wilfredo Cardoso, [place] [address] [address] [place], Authorized P NO ADDRESS ON FILE HAND INJURY NOS (Primary Dx) Social History Tobacco Use Types Packs/Day Years Used Date Smoking Tobacco: Never Assessed Comments Unknown Sex and Gender Information Value Date Recorded Sex Assigned at Female 04/12/2024 1:48 AM CDT Legal Sex Female 4:34 AM LABORATORY HELPER Gender Identity Female 04/12/2024 1:48 AM CDT Sexual Orientation Not on file documented as of this encounter Plan of Treatment Not on file documented as of this encounter Visit Diagnoses Diagnosis Injury, other and unspecified, hand, except finger- Primary documented in this encounter Care Teams Agricultural Research Technician Relationship Specialty Start Date End Date Shima Tavarez FNP [address] [place] [phone] PCP - General 12/28/20 documented as of this encounter
--- OUTSIDE RECORDS SUMMARY | 2025-06-08 18:14 | XMS_ITS | Encounter Summary ---
Author Organization [facility] Address [address] [place] [address] Care Team Providers Care Kiln Worker Name Role Phone Shima Tavarez Primary Care Provider +1 [phone] Encounter Details Date Type Department Care Team (Late st Contact Info) Description 08/06/2003 Outpatient Historical [facility] Medicine [facility] [address] [facility] [address] [place] [address] Grace Miller MD NO ADDRESS ON FILE Social History Tobacco Use Types Packs/Day Years Used Date Smoking Tobacco: Never Assessed Comments Unknown Sex and Gender Information Value Date Recorded Sex Assigned at Female 04/12/2024 1:48 AM CDT Legal Sex Female 4:34 AM HIGH LIFT OPERATOR Gender Identity Female 04/12/2024 1:48 AM CDT Sexual Orientation Not on file documented as of this encounter Plan of Treatment Not on file documented as of this encounter Visit Diagnoses Not on filedocumented in this encounter Care Teams Kiln Worker Relationship Specialty Start Date End Date Shima Tavarez FNP [address] [place] [phone] PCP - General 12/28/20 documented as of this encounter
--- OUTSIDE RECORDS SUMMARY | 2025-06-08 18:14 | XMS_ITS | Encounter Summary ---
Author Organization [facility] Address [address] [place] [address] Care Team Providers Care Storage Brine Worker Name Role Phone Shima Tavarez Primary Care Provider +1 [phone] Encounter Details Date Type Department Care Team (Late st Contact Info) Description 09/19/2003 Outpatient Historical [facility] Medicine [facility] [address] [facility] [address] [place] [address] Grace Miller MD NO ADDRESS ON FILE Social History Tobacco Use Types Packs/Day Years Used Date Smoking Tobacco: Never Assessed Comments Unknown Sex and Gender Information Value Date Recorded Sex Assigned at Female 04/12/2024 1:48 AM CDT Legal Sex Female 4:34 AM SHOE STAMPER Gender Identity Female 04/12/2024 1:48 AM CDT Sexual Orientation Not on file documented as of this encounter Plan of Treatment Not on file documented as of this encounter Visit Diagnoses Not on filedocumented in this encounter Care Teams Storage Brine Worker Relationship Specialty Start Date End Date Shima Tavarez FNP [address] [place] [phone] PCP - General 12/28/20 documented as of this encounter
--- OUTSIDE RECORDS SUMMARY | 2025-06-08 18:14 | XMS_ITS | Encounter Summary ---
Author Organization [facility] Address [address] [place] [address] Care Team Providers Care Lisw Name Role Phone Shima Tavarez Dena BINDERY LIBRARY TECHNICAL ASSISTANT Primary Care Provider +1 [phone] Encounter Details Date Type Department Care Team (Late st Contact Info) Description 03/08/2007 Orders Only [facility] [address] [place] [address] [place] [address] [place] [address] Social History Tobacco Use Types Packs/Day Years Used Date Smoking Tobacco: Never Assessed Comments Unknown Sex and Gender Information Value Date Recorded Sex Assigned at Female 04/12/2024 1:48 AM CDT Legal Sex Female 4:34 AM DIRECTOR OF SOFTWARE DEVELOPMENT Gender Identity Female 04/12/2024 1:48 AM CDT Sexual Orientation Not on file documented as of this encounter Progress Notes * Holly Wade DO - 12/18/2007 11:42 AM CDT NURSE NAME: Rachell Fonseca VITALS: PULSE: 63 Right Radial, Regular B/P: 118/70 Right Arm Sitting WEIGHT: 166lbs ALLERGIES: Allergies are as listed. CHIEF COMPLAINT: Anxiety /mercy/est HISTORY: H/o anxiety d/o, previously treated by psychiatrist Dr. Lopes with Effexor, has been off for 2-3 months because thought she was doing better. States has difficulty falling asleep, able to asleep then; no crying or depression; occ. irritability; no SI/HI; has panic attacks every 2-3 weeks, last 10-15 minutes, feels shakey and palpitations; better with journalling or talking to friends States asthma much better with MDIs and control of BURT REVIEW OF SYSTEMS: ALL NORMAL EXCEPT per hpi. PHYSICAL EXAM: CONSTITUTIONAL: GENERAL APPEARANCE: Healthy appearing, alert patient, normally nourished, developmentally normal and in no acute distress. EARS, NOSE, MOUTH AND THROAT: EARS: Tympanic membranes shiny without retraction. Canals unremarkable. Hearing grossly normal. NOSE (AND SINUS): No abnormality of the nose or sinuses is noted. ORAL: Inspection of gums, lips, palate, and dentition normal. No lesions or masses. Oral mucosa unremarkable with non-inflamed posterior pharynx. NECK: No lymphadenopathy noted. Supple. PSYCHIATRIC: Judgment appropriate. Oriented. Normal memory. Mood and affect appropriate. ASSESSMENT/PLAN: 477.9-RHINITIS ALLERGIC UNSPECIFIED ASSESSMENT: The patient's allergic rhinitis has improved. Will not change medication, continue to monitor for complications. 300.02-ANXIETY DISORDER ASSESSMENT: The patient's anxiety has worsened. Will start medication for better control. MEDICATIONS: PROZAC ORAL CAPSULE CONVENTIONAL 20 MG, 1 tab po qAM, 30 Dispensed, status: NEW PRESCRIPTION, 03/08/2007. PATIENT EDUCATION: Risks, benefits, and possible side effects of medication(s) were reviewed with the patient. RETURN VISIT: Patient instructed to return in 3 weeks. for re-eval; if she is significantly better she will just call for refill Electronically Signed by: Holly Wade MD on February documented in this encounter Plan of Treatment Not on file documented as of this encounter Visit Diagnoses Not on filedocumented in this encounter Care Teams Lisw Relationship Specialty Start Date End Date Shima Tavarez FNP [address] [place] [address] PCP - General 12/28/20 documented as of this encounter
--- OUTSIDE RECORDS SUMMARY | 2025-06-08 18:14 | XMS_ITS | Encounter Summary ---
Author Organization [facility] Address [address] [place] [address] Care Team Providers Care Qa Analyst Name Role Phone Shima Tavarez Primary Care Provider +1 [phone] Encounter Details Date Type Department Care Team (Late st Contact Info) Description 04/13/2007 Outpatient Historical [facility] Adolescent Psychiatry [facility] [address] [place] [address] [place] [address] [facility] [place] [address] Social History Tobacco Use Types Packs/Day Years Used Date Smoking Tobacco: Never Assessed Comments Unknown Sex and Gender Information Value Date Recorded Sex Assigned at Female 04/12/2024 1:48 AM CDT Legal Sex Female 4:34 AM PRODUCTION MACHINE COMPUTER OPERATOR Gender Identity Female 04/12/2024 1:48 AM CDT Sexual Orientation Not on file documented as of this encounter Plan of Treatment Not on file documented as of this encounter Visit Diagnoses Not on filedocumented in this encounter Care Teams Qa Analyst Relationship Specialty Start Date End Date Shima Tavarez FNP [address] [place] [phone] PCP - General 12/28/20 documented as of this encounter
--- OUTSIDE RECORDS SUMMARY | 2025-06-08 18:14 | XMS_ITS | Encounter Summary ---
Author Organization [facility] Address [address] [place] [address] Care Team Providers Care Tailer Out Name Role Phone Shima Tavarez LUMBER CHAIN OFFBEARER Primary Care Provider +1 [phone] Encounter Details Date Type Department Care Team (Late st Contact Info) Description 04/25/2007 Emergency [facility] Shahzad Harmon MD [address] [place] [address] Er, Authorized P NO ADDRESS ON FILE Urinary Tract Infection, Site not Specified (Primary Dx) Social History Tobacco Use Types Packs/Day Years Used Date Smoking Tobacco: Never Assessed Comments Unknown Sex and Gender Information Value Date Recorded Sex Assigned at Female 04/12/2024 1:48 AM CDT Legal Sex Female 4:34 AM BREWER HELPER Gender Identity Female 04/12/2024 1:48 AM CDT Sexual Orientation Not on file documented as of this encounter Plan of Treatment Not on file documented as of this encounter Procedures Procedure Name Priority Date/Time Associated Diagnosis Comments URINALYSIS WITH REFLEX CULTURE Routine 04/25/2007 12:19 PM CDT URINALYSIS W/REFLEX MICROSCOPIC Routine 04/25/2007 12:19 PM CDT documented in this encounter Results * (ABNORMAL) URINALYSIS (04/25/2007 12:19 PM CDT) COLOR UA Yellow INTERFACE SYSTEM CLARITY UA Slt. Cloudy(A) Clear INTERFACE SYSTEM SPECIFIC GRAVITY UA 1.011 1.001 - 1.035 INTERFACE SYSTEM PH UA 7.0 5.0 - 8.0 INTERFACE SYSTEM LEUKOCYTE ESTERASE UA 2+(A) Negative INTERFACE SYSTEM NITRITE UA Negative Negative INTERFACE SYSTEM PROTEIN UA Negative Negative INTERFACE SYSTEM GLUCOSE UA Negative Negative INTERFACE SYSTEM KETONES UA Negative Negative INTERFACE SYSTEM UROBILINOGEN UA <1 <=1 mg/dL INTE RFACE SYSTEM BILIRUBIN UA Negative Negative INTERFA CE SYSTEM BLOOD UA Negative Negative INTERFACE SYSTEM WBC UA 2 0 - 5 /HPF INTERFACE SYSTEM RBC UA <1 0 - 4 /HPF INTERFACE SYSTEM BACTERIA UA 1+(A) None Seen /HPF INTERFACE SYSTEM EPITHELIAL CELLS, URINE Many /HPF INTERFACE SYSTEM YEAST Rare(A) None Seen /HPF INTERFACE SYSTEM 04/25/2007 12:1 9 PM CDT us Shahzad Harmon MD URINE ORDERABLES Edited Performing Organization Address [facility] Phone Number INTERFACE SYSTEM Refer to clinic/hospital department * URINALYSIS WITH REFLEX CULTURE (04/25/2007 12:19 PM CDT) Pathologist [facility] URINE CULTURE ORDER Culture ordered INTERFACE SYSTEM Comment: Criteria for a reflex culture include one or more of the following: Abn ormal nitrite, leukocyte esterase, WBCs or RBCs. Lack of qualifying criteria does not exclude the possiblity of a urinary tract infection. Dilute urine, drug interference, etc. may decrease the sensitivity of the criteria analytes. 04/25/2007 12:1 9 PM CDT us Shahzad Harmon MD URINE ORDERABLES Edited Performing Organization Address [facility] Phone Number INTERFACE SYSTEM Refer to clinic/hospital department documented in this encounter Visit Diagnoses Diagnosis Urinary tract infection, site not specified- Primary documented in this encounter Care Teams Tailer Out Relationship Specialty Start Date End Date Shima Tavarez FNP [address] [place] [address] PCP - General 12/28/20 documented as of this encounter
--- OUTSIDE RECORDS SUMMARY | 2025-06-08 18:14 | XMS_ITS | Encounter Summary ---
Author Organization [facility] Address [address] [place] [address] Care Team Providers Care Permit Coordinator Name Role Phone Shima Tavarez Primary Care Provider +1 [phone] Encounter Details Date Type Department Care Team (Late st Contact Info) Description 07/16/2007 Outpatient Historical [facility] [address] [address] [place] [address] [place] [address] [place] [address] Social History Tobacco Use Types Packs/Day Years Used Date Smoking Tobacco: Never Assessed Comments Unknown Sex and Gender Information Value Date Recorded Sex Assigned at Female 04/12/2024 1:48 AM CDT Legal Sex Female 4:34 AM BOOM STICK MAN Gender Identity Female 04/12/2024 1:48 AM CDT Sexual Orientation Not on file documented as of this encounter Plan of Treatment Not on file documented as of this encounter Visit Diagnoses Not on filedocumented in this encounter Care Teams Permit Coordinator Relationship Specialty Start Date End Date Shima Tavarez FNP [address] [place] [address] PCP - General 12/28/20 documented as of this encounter
--- OUTSIDE RECORDS SUMMARY | 2025-06-08 18:14 | XMS_ITS | Encounter Summary ---
Author Organization [facility] Address [address] [place] [address] Care Team Providers Care Air Carrier Inspector Name Role Phone Shima Tavarez Primary Care Provider +1 [phone] Encounter Details Date Type Department Care Team (Late st Contact Info) Description 07/28/2002 Emergency [facility] Wilda Georges MD [address] [place] [address] Er, Authorized P NO ADDRESS ON FILE ASTHMA NOS W AC EXACERB (Primary Dx) Social History Tobacco Use Types Packs/Day Years Used Date Smoking Tobacco: Never Assessed Comments Unknown Sex and Gender Information Value Date Recorded Sex Assigned at Female 04/12/2024 1:48 AM CDT Legal Sex Female 4:34 AM PROGRAM DEVELOPMENT SPECIALIST Gender Identity Female 04/12/2024 1:48 AM CDT Sexual Orientation Not on file documented as of this encounter Plan of Treatment Not on file documented as of this encounter Visit Diagnoses Diagnosis Unspecified asthma, with exacerbation- Primary documented in this encounter Care Teams Air Carrier Inspector Relationship Specialty Start Date End Date Shima Tavarez FNP [address] [place] [phone] PCP - General 12/28/20 documented as of this encounter
--- OUTSIDE RECORDS SUMMARY | 2025-06-08 18:14 | XMS_ITS | Encounter Summary ---
Author Organization [facility] Address [address] [place] [address] Care Team Providers Care Information Security Specialist Name Role Phone Shima Tavarez Primary Care Provider +1 [phone] Encounter Details Date Type Department Care Team (Late st Contact Info) Description 11/19/2003 Emergency [facility] Mitra Lafleur NP [address] [place] [address] Er, Authorized P NO ADDRESS ON FILE MIGRAINE NOS W/O MENTN INTRACTABLE (Primary Dx) Social History Tobacco Use Types Packs/Day Years Used Date Smoking Tobacco: Never Assessed Comments Unknown Sex and Gender Information Value Date Recorded Sex Assigned at Female 04/12/2024 1:48 AM CDT Legal Sex Female 4:34 AM 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
--- OUTSIDE RECORDS SUMMARY | 2025-06-08 18:14 | XMS_ITS | Encounter Summary ---
Author Organization [facility] Address [address] [place] [address] Care Team Providers Care Inflatable Buildings Laminator Name Role Phone Shima Tavarez Primary Care Provider +1 [phone] Encounter Details Date Type Department Care Team (Late st Contact Info) Description 09/10/2002 Emergency [facility] Wilda Georges MD [address] [place] [address] Er, Authorized P NO ADDRESS ON FILE PNEUMONIA, ORGANISM NOS (Primary Dx) Social History Tobacco Use Types Packs/Day Years Used Date Smoking Tobacco: Never Assessed Comments Unknown Sex and Gender Information Value Date Recorded Sex Assigned at Female 04/12/2024 1:48 AM CDT Legal Sex Female 4:34 AM CABLE LAYER Gender Identity Female 04/12/2024 1:48 AM CDT Sexual Orientation Not on file documented as of this encounter Plan of Treatment Not on file documented as of this encounter Visit Diagnoses Diagnosis Pneumonia, organism unspecified(486)- Primary Pneumonia, organism unspecified documented in this encounter Care Teams Inflatable Buildings Laminator Relationship Specialty Start Date End Date Shima Tavarez FNP [address] [place] [address] PCP - General 12/28/20 documented as of this encounter
--- OUTSIDE RECORDS SUMMARY | 2025-06-08 18:14 | XMS_ITS | Encounter Summary ---
Author Organization [facility] Address [address] [place] [address] Care Team Providers Care Preservationist Name Role Phone Daysi Shima Dena GAONAP Primary Care Provider +1 [phone] Encounter Details Date Type Department Care Team (Latest Contact Info) Description 08/13/2007 Outpatient Historical [facility] [address] [address] [place] [address] [place] [address] [place] [address] Scanty or Infrequent Menstruation Social History Tobacco Use Types Packs/Day Years Used Date Smoking Tobacco: Never Assessed Comments Unknown Sex and Gender Information Value Date Recorded Sex Assigned at Female 04/12/2024 1:48 AM CDT Legal Sex Female 4:34 AM CASTING AND PASTING SUPERVISOR Gender Identity Female 04/12/2024 1:48 AM CDT Sexual Orientation Not on file documented as of this encounter Plan of Treatment Not on file documented as of this encounter Procedures Procedure Name Priority Date/Time Associated Diagnosis Comments 17 HYDROXYPROGESTERONE Routine 8 10:41 AM CASTING AND PASTING SUPERVISOR INSULIN LEVEL Routine 08/13/2007 10:41 AM CASTING AND PASTING SUPERVISOR DHEA Routine 08/13/2007 10:41 AM CASTING AND PASTING SUPERVISOR HCG QUANTITATIVE, BLOOD Routine 08/13/19 08 10:41 AM CASTING AND PASTING SUPERVISOR TSH WITH REFLEX FT4 AND FT3 Routine 08/13/2007 10:31 AM CASTING AND PASTING SUPERVISOR PROLACTIN Routine 08/13/2007 10:31 AM CASTING AND PASTING SUPERVISOR TESTOSTERONE, TOTAL Routine 08/13/2007 1 0:31 AM CASTING AND PASTING SUPERVISOR documented in this encounter Results * DHEA (08/13/2007 10:41 AM CASTING AND PASTING SUPERVISOR) DHEA 981 ng/dL INTERFACE SYSTEM Comment: Reference Range: NO RANGE ESTABLISHED FOR THIS AGE GROUP Pediatric Reference Ranges for DHEA, LC/MS/MS: 1-7 years: 11-443 ng/dL 8-13 years: 52-1216 ng/dL Lab test performed by: [email or web address] [address] [place] [address] Michoacano MUSTFAA MD 08/13/2007 10:4 1 AM CASTING AND PASTING SUPERVISOR Holly Wade DO CHEMISTRY ORDERABLES Edited INTERFACE SYSTEM Refer to clinic/hospital department * BETA HCG QUANTITATIVE, BLOOD (08/13/2007 10:41 AM CASTING AND PASTING SUPERVISOR) HCG QUANT, BLOOD <5 0 - 5 mIU/mL INTERFACE SYSTEM Comment: Result of 5 - 25 mIU/mL is indeterminant for , repeat of test recommemded in 48 hours. Reference Range: Gestational Age: 3 Weeks 5.8 - 71.2 mIU/mL 4 Weeks 9.5 - 750 mIU/mL 5 Weeks 217 - 7138 mIU/mL 6 Weeks 158 - 31,795 mIU/mL 7 Weeks 3697 - 163,563 mIU/mL 8 Weeks 32,065 - 149,571 mIU/mL 9 Weeks 63,803 - 151,410 mIU/mL 10 Weeks 46,509 - 186,977 mIU/mL 12 Weeks 27,832 - 210,612 mIU/mL 14 Weeks 13,950 - 62,530 mIU/mL 15 Weeks 12,039 - 70,971 mIU/mL 16 Weeks 9040 - 56,451 mIU/mL 17 Weeks 8175 - 55,868 mIU/mL 18 Weeks 8099 - 58,176 mIU/mL Heterophile antibodies and other interfering substances in the serum of some patients may cause a false-positive result in this assay. Before making a diagnosis of malignancy or etopic ,the result of this test should be confirmed with a urine HCG test and correlated with other clinical evidence. 08/13/2007 10:4 1 AM CASTING AND PASTING SUPERVISOR Holly Abbott Mauro DELATORRE CHEMISTRY ORDERABLES Edited Performing Organization Address [facility] de Phone Number INTERFACE SYSTEM Refer to clinic/hospital department * (ABNORMAL) INSULIN LEVEL (08/13/2007 10:41 AM CASTING AND PASTING SUPERVISOR) INSULIN LEVEL 53(H) <17 uIU/mL INTER FACE SYSTEM Comment: Lab test performed by: [facility] [address] [place] [address] AMADOR CHASE MD 08/13/2007 10:4 1 AM CASTING AND PASTING SUPERVISOR Holly Abbott Mauro DELATORRE CHEMISTRY ORDERABLES Edited Performing Organization Address [facility] de Phone Number INTERFACE SYSTEM Refer to clinic/hospital department * 17 HYDROXYPROGESTERONE (08/13/2007 10:41 AM CASTING AND PASTING SUPERVISOR) 17 ALPHA HYDROXYPROGESTERONE 68 ng/dL INTERFAC E SYSTEM Comment: Reference Range: 16-283 Pediatric Female Reference Ranges for 17-Hydroxyprogesterone, LC/MS/MS: 1-12 months: 11-170 ng/dL 1-4 years 4-115 ng/dL 5-9 years: 90 ng/dL or less 10-13 years: 169 ng/dL or less 14-17 years: 16-283 ng/dL Premature Infants: < or = 360 ng/dL (31-35 weeks) Term Infants: < or = 420 ng/dL (3 days) Ananda Stages: II-III: 18-220 ng/dL IV-V: 36-200 ng/dL Includes data from J Clin Endocrinol Metab. 1991;73:674-686; J Clin Endocrinol Metab. 1989; 69:7034-7647; and J Clin Endocrinol Metab. 1994; 78:226-270. Lab test performed by: [email or web address] [id number] [place] [address] Michoacano MUSTAFA MD 08/13/2007 10:4 1 AM CASTING AND PASTING SUPERVISOR Holly Wade DO CHEMISTRY ORDERABLES Edited Performing Organization Address [facility] Phone Number INTERFACE SYSTEM Refer to clinic/hospital department * TSH WITH REFLEX FT4 AND FT3 (08/13/2007 10:31 AM CASTING AND PASTING SUPERVISOR) TSH 1.72 0.27 - 4.20 uU/mL INTERFACE SYSTEM 08/13/2007 10:3 1 AM CASTING AND PASTING SUPERVISOR Holly Abbott Mauro DELATORRE CHEMISTRY ORDERABLES Edited Performing Organization Address [facility] Phone Number INTERFACE SYSTEM Refer to clinic/hospital department * PROLACTIN (08/13/2007 10:31 AM CASTING AND PASTING SUPERVISOR) PROLACTIN 7.55 ng/mL INTERFACE SYSTEM Comment: Female: Non- Reference Range 18 years - Adult = 4.79 - 23.30 ng/mL No Reference Range Established for patients less than 18 years of age..b r.br 08/13/2007 10:3 1 AM CASTING AND PASTING SUPERVISOR Result [facility] Holly Wade DO CHEMISTRY ORDERABLES Edited Performing Organization Address [facility] Phone Number INTERFACE SYSTEM Refer to clinic/hospital department * (ABNORMAL) TESTOSTERONE (08/13/2007 10:31 AM CASTING AND PASTING SUPERVISOR) TESTOSTERONE 80(H) 6 - 75 ng/dL INTERFACE SYSTEM 08/13/2007 10:3 1 AM CASTING AND PASTING SUPERVISOR Result [facility] Holly Wade CHEMISTRY ORDERABLES Edited Performing Organization Address [facility] Phone Number INTERFACE SYSTEM Refer to clinic/hospital department documented in this encounter Visit Diagnoses Diagnosis Scanty or infrequent menstruation documented in this encounter Care Teams Preservationist Relationship Specialty Start Date End Date Shima Tavarez FNP [address] [place] [address] PCP - General 12/28/20 documented as of this encounter
--- OUTSIDE RECORDS SUMMARY | 2025-06-08 18:14 | XMS_ITS | Encounter Summary ---
Author Organization [facility] Address 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
--- OUTSIDE RECORDS SUMMARY | 2025-06-08 18:14 | XMS_ITS | Encounter Summary ---
Author Organization [facility] Address 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
--- OUTSIDE RECORDS SUMMARY | 2025-06-08 18:14 | XMS_ITS | Encounter Summary ---
Author Organization [facility] Address [address] [place] [address] Care Team Providers Care Terrazzo Journeyman Name Role Phone Shima Tavarez Primary Care Provider +1 [phone] Encounter Details Date Type Department Care Team (Late st Contact Info) Description 07/11/2007 Outpatient Historical [facility] [place] [address] [place] [address] [place] [address] [place] [address] Social History Tobacco Use Types Packs/Day Years Used Date Smoking Tobacco: Never Assessed Comments Unknown Sex and Gender Information Value Date Recorded Sex Assigned at Female 04/12/2024 1:48 AM CDT Legal Sex Female 4:34 AM 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
--- OUTSIDE RECORDS SUMMARY | 2025-06-08 18:14 | XMS_ITS | Encounter Summary ---
Author Organization [facility] Address [address] [place] [address] Care Team Providers Care Garden Consultant Name Role Phone Shima Tavarez Primary Care Provider +1 [phone] Encounter Details Date Type Department Care Team (Late st Contact Info) Description 01/01/2003 Outpatient Historical [facility] 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
--- OUTSIDE RECORDS SUMMARY | 2025-06-08 18:14 | XMS_ITS | Encounter Summary ---
[facility] Organization [facility] Address [address] [place] [address] Care Team Providers Care Mucking Machine Operator Name Role Phone Shima Tavarez Dena GAONAP Primary Care Provider [phone] Encounter Details Date Type Department Care Team (Late st Contact Info) Description 04/12/2007 Outpatient Historical [place] [address] [facility] [place] [address] Unspecified Episodic Mood Disorder (CMS/HCC) (Primary Dx) Social History Tobacco Use Types Packs/Day Years Used Date Smoking Tobacco: Never Assessed Comments Unknown Sex and Gender Information Value Date Recorded Sex Assigned at Female 04/12/2024 1:48 AM CDT 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 Gender Identity Female 04/12/2024 1:48 AM CDT Sexual Orientation Not on file documented as of this encounter Plan of Treatment Not on file documented as of this encounter Procedures Procedure Name Priority Date/Time Associated Diagnosis Comments DRUGS OF ABUSE W/REFLEX THC QUANT Routine 04/24/2007 2:14 PM CDT CANNABINOID SEMIQUANTITATIVE, URINE Routine 04/24/2007 2:14 PM CDT DRUGS OF ABUSE W/REFLEX THC QUANT Routine 04/12/2007 1:02 PM CDT CANNABINOID SEMIQUANTITATIVE, URINE Routine 04/12/2007 1:02 PM CDT documented in this encounter Results * CANNABINOID SEMIQUANTITATIVE, URINE (04/24/2007 2:14 PM CDT) CANNABINOIDS SEMIQUANT, URINE 63 ng THC equiv/mg Cr INTERFACE SYSTEM DATE OF PREV THC, SEMIQUANT 1:[id number] 0000:[id number]: 0:0 INTERFACE SYSTEM PREV THC SEMIQUANT 247 ng THC equiv/mg Cr INTERFACE SYSTEM THC % OF PREVIOUS Unable to Quantitate <=150 % INTERFACE SYSTEM Comment: A change of 150% or more from the previous value suggests reuse. Result created by Discern Expert 04/24/2007 2:14 PM CDT Fabby Ashley MD URINE ORDERABLES Edited INTERFACE SYSTEM Refer to clinic/hospital department * DRUGS OF ABUSE W/REFLEX THCSQ (04/24/2007 2:14 PM CDT) COMMENT, TOXICOLOGY See Separate Comment INTERFACE SYSTEM Comment: Urine sample was not handled as a legal specimen and was received without a chain of custody. The result should be used only for medical purposes. False positive and erroneous results can occur due to cross-reacting sub stances and other factors. Depending on the clinical context, confirmation of all presumptive positive results by a more specific alternate method is recommended. A negative result indicates the analyte, if present, is below the screening threshold. Drug Ref. Range Screening Threshold Amphetamines Negative 1000 ng/mL Barbituates Negative 200 ng/mL Benzodiazepines Negative 300 ng/mL Cannabinoids Negative 50 ng/mL Cocaine Metabolites Negative 300 ng/mL Opiates Negative 300 ng/mL Phencycldine Negative 25 ng/mL The cut-off threshold, known cross-reactive compounds, drugs,and specificity information for each of the urine drugs of abuse are available on the [facility] Intranet at: [email or web address] BootsReva Systems/unity/sjmmclab.nsf Select: Drugs of Abuse ? [facility] To inquire about any potential cross-reactivity of a specific drug not listed at this site, please contact the Chemistry Lab at . AMPHETAMINE QUAL, URINE Negative Negative INTERFACE SYSTEM BARBITURATE QUAL, URINE Negative Negative INTERFACE SYSTEM BENZODIAZEPINE QUAL, URINE Negative Negative INTERFACE SYSTEM CANNABINOIDS QUAL, URINE Presumptive Positive Negative INTERFACE SYSTEM COCAINE QUAL URINE Negative Negative INTERFACE SYSTEM OPIATE QUAL, URINE Negative Negative INTERFACE SYSTEM PCP QUAL, URINE Negative Negative INTE RFACE SYSTEM 04/24/2007 2:14 PM CDT Fabby Ashley MD URINE ORDERABLES Edited Performing Organization Address City/[facility] Co de Phone Number INTERFACE SYSTEM Refer to clinic/hospital department * CANNABINOID SEMIQUANTITATIVE, URINE (04/12/2007 1:02 PM CDT) CANNABINOIDS SEMIQUANT, URINE 219 ng THC equiv/mg Cr INTERFACE SYSTEM 04/12/2007 1:02 PM CDT Fabby Ashley MD URINE ORDERABLES Edited Performing Organization Address [facility] de Phone Number INTERFACE SYSTEM Refer to clinic/hospital department * DRUGS OF ABUSE W/REFLEX THCSQ (04/12/2007 1:02 PM CDT) COMMENT, TOXICOLOGY See Separate Comment INTERFACE SYSTEM Comment: Urine sample was not handled as a legal specimen and was received without a chain of custody. The result should be used only for medical purposes. False positive and erroneous results can occur due to cross-reacting sub stances and other factors. Depending on the clinical context, confirmation of all presumptive positive results by a more specific alternate method is recommended. A negative result indicates the analyte, if present, is below the screening threshold. Drug Ref. Range Screening Threshold Amphetamines Negative 1000 ng/mL Barbituates Negative 200 ng/mL Benzodiazepines Negative 300 ng/mL Cannabinoids Negative 50 ng/mL Cocaine Metabolites Negative 300 ng/mL Opiates Negative 300 ng/mL Phencycldine Negative 25 ng/mL The cut-off threshold, known cross-reactive compounds, drugs,and specificity information for each of the urine drugs of abuse are available on the [facility] Intranet at: http://[email or web address] centerReva Systems/unity/sjmmclab.nsf Select: Drugs of Abuse ? [facility] To inquire about any potential cross-reactivity of a specific drug not listed at this site, please contact the Chemistry Lab at . AMPHETAMINE QUAL, URINE Negative Negative INTERFACE SYSTEM BARBITURATE QUAL, URINE Negative Negative INTERFACE SYSTEM BENZODIAZEPINE QUAL, URINE Negative Negative INTERFACE SYSTEM CANNABINOIDS QUAL, URINE Presumptive Positive Negative INTERFACE SYSTEM COCAINE QUAL URINE Negative Negative INTERFACE SYSTEM OPIATE QUAL, URINE Negative Negative INTERFACE SYSTEM PCP QUAL, URINE Negative Negative INTE RFACE SYSTEM 04/12/2007 1:02 PM CDT us Fabby Ashley MD URINE ORDERABLES Edited INTERFACE SYSTEM Refer to clinic/hospital department documented in this encounter Visit Diagnoses Diagnosis Unspecified episodic mood disorder (CMS/HCC)- Primary Unspecified episodic mood disorder documented in this encounter Care Teams Mucking Machine Operator Relationship Specialty Start Date End Date Shima Tavarez FNP [address] [place] [phone] PCP - General 12/28/20 documented as of this encounter
--- OUTSIDE RECORDS SUMMARY | 2025-06-08 18:14 | XMS_ITS | Encounter Summary ---
Author Organization [facility] Address [address] [place] [address] Care Team Providers Care Field Coil Winder Name Role Phone Shima Tavarez Primary Care Provider [phone] Encounter Details Date Type Department Care Team (Late st Contact Info) Description 03/08/2007 Outpatient Historical [facility] [address] [facility] [address] [place] [address] [place] [address] [place] [address] Social History Tobacco Use Types Packs/Day Years Used Date Smoking Tobacco: Never Assessed Comments Unknown Sex and Gender Information Value Date Recorded Sex Assigned at Female 04/12/2024 1:48 AM CDT 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 Gender Identity Female 04/12/2024 1:48 AM CDT Sexual Orientation Not on file documented as of this encounter Last Filed Vital Signs Vital Sign Reading Time Taken Comments Blood Pressure 118/70 03/08/2007 4:00 PM CDT Pulse 63 03/08/2007 4:00 PM CDT Temperature - - Respiratory Rate - - Oxygen Saturation - - Inhaled Oxygen Concentration - - Weight 75.3 kg (166 lb) 03/08/2007 4:00 PM CDT Height - - Body Mass Index - - documented in this encounter Plan of Treatment Not on file documented as of this encounter Visit Diagnoses Not on filedocumented in this encounter Care Teams Field Coil Winder Relationship Specialty Start Date End Date Shima Tavarez FNP [address] [place] [phone] PCP - General 12/28/20 documented as of this encounter
--- OUTSIDE RECORDS SUMMARY | 2025-06-08 18:15 | XMS_ITS | Encounter Summary ---
Author Organization [facility] Address [address] [place] [address] Care Team Providers Care Demolition Worker Name Role Phone Shima Tavarez Dena [facility] Primary Care Provider [phone] Encounter Details Date Type Department Care Team (Late st Contact Info) Description 10/22/2006 Orders Only [facility] Family Medicine [facility] [address] [facility] [address] [place] [address] [place] [address] [facility] [address] [place] [address] Social History Tobacco Use Types Packs/Day Years Used Date Smoking Tobacco: Never Assessed Comments Unknown Sex and Gender Information Value Date Recorded Sex Assigned at Female 04/12/2024 1:48 AM CDT 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 She has a URI andmild worsening of asthma. Her inhaler does not work as well as nebulized treatment. She needs a refill of albuterol SVN. I advised that she should be seen promptly if her breathing does not improve. S.P. MEDICATIONS: Call in to Pharmacy [phone] ALBUTEROL SULFATE INHALATION NEBULIZATION SOLUTION (2.5 MG/3ML) 0.083%, 3ml AEROSOL FOUR TIMES INHALATION NEEDED, 100 Dispensed, status: NEW PRESCRIPTION, 10/22/2006. Electronically Signed by: Desiree Prince MD on Sunday, October 22, 2006 documented in this encounter Plan of Treatment Not on file documented as of this encounter Visit Diagnoses Not on filedocumented in this encounter Care Teams Demolition Worker Relationship Specialty Start Date End Date Shima Tavarez FNP [address] [place] [phone] PCP - General 12/28/20 documented as of this encounter
--- OUTSIDE RECORDS SUMMARY | 2025-06-08 18:15 | XMS_ITS | Data Portability ---
Author Organization [facility] Mehrdad Kebede [facility], .LJonyCJony, [facility] Address [address] [address] Care Team Providers Care Pathology Secretary Name Role Phone MANDA GONZALES Primary Care Provider [phone] Assessment Encounter Date Assessment Date Assessment LastModified by Organization Details LastModified Time 04/28/2025 04/28/2025 34-year-old santosh li with history of morbid obesity presenting for weight loss consultation. Post-knee surgery weight concerns prompt her to seek intervention options. Her family history of medullary thyroid cancer complicates GLP-1 medication use, pending further history validation. Prescription renewal for Naproxen and Tizanidine were requested for knee management. [email or web address] Not available 04/28/2025 15:30:24 05/27/2025 05/27/2025 34-year-old santosh li with a history of asthma presenting with exacerbation, showing symptoms of cough and nocturnal dyspnea, alongside allergic rhinitis. The patient is responding to antiasthmatic therapy but requires optimized allergy management and additional corticosteroids for acute control. [email or web address] Not available 05/27/2025 17:33:33 Plan of Treatment Reminders Order Date Submit Date Provider Last Modified By Organization Details Last Modified Time Details Appointments None recorded. Lab rapid SARS CoV 2 Ag, QL IA, respiratory specimen [address] [facility] ([facility]), [address] [place], [address], 12:14:55 Referral orthopedic surgeon referral 2024 025 [facility], [address] [place] [address], [address], 12:31:54 Procedures None recorded. Surgeries None recorded. Imaging None recorded. Medication Orders fluticasone propionate 50 mcg/actuati on nasal spray,suspe nsion [address], [address], 17:49:04 prednisone 20 mg tablet [address], [address], 00:16:25 naproxen 500 mg tablet [address], [address], 17:44:14 tizanidine 4 mg tablet 2024 [facility], [address] [place] [address], [address], 17:44:17 prednisone 20 mg tablet [address], [address], 14:57:59 azithromyci n 250 mg tablet [address], [address], 14:06:27 fluticasone 500 mcg-salmete rol 50 mcg/dose blistr powdr for inhalation [address], [address], 10:23:12 Bactrim DS 800 mg-160 mg tablet 2024 025 [facility], [address] [place], [address], 11:37:56 Patient TargetsNo targets recorded. Patient Instructions Encounter Date Encounter Id Patient Instructions Last Modified By Organization Details Last Modified Time 04/28/2025 [id number] - Please verify and confirm family history related to thyroid cancer. - Return for follow-up to discuss weight loss management once family history is clarified. - Refill Naproxen and Tizanidine as per previous prescription instructions. [email or web address] Not available 04/28/2025 15:30:26 I discussed with the patient her condition of morbid obesity and the importance of weight loss to improve her overall health and prevent further complications related to her surgery. We reviewed the potential use of GLP-1 receptor agonists for weight management but stressed the need to confirm family history related to thyroid cancer, specifically medullary type. I explained the possible side effects of GLP-1 medications, such as nausea, constipation, and diarrhea. If GLP-1 treatments are deemed unsuitable, we will consider alternative medications, such as phentermine. I also addressed her request to refill Naproxen and Tizanidine, examining its past benefits in managing knee pain. Follow-up was suggested to discuss further treatment plans once family history findings are clear. [email or web address] Not available 04/28/2025 15:30:26 05/27/2025 [id number] - Take the prescribed steroids as directed. - Use your inhalers as needed for asthma control. - Continue using Flonase regularly for allergy management. - Consider an antihistamine for allergy symptoms if needed. - Monitor for changes in symptoms and seek care if they worsen. - Maintain nutritional intake to manage weight and medication side effects. [email or web address] Not available 05/27/2025 17:33:37 During our discussion, I explained the connection between the patient's asthma exacerbations and seasonal allergies. We reviewed the current treatment plan and agreed on the necessity of a corticosteroid course to manage this flare-up. I emphasized the importance of using Flonase consistently and discussed adding an oral antihistamine. We also reviewed the importance of weight management and continued monitoring of medication side effects. The patient agreed to follow our discussed management strategy and acknowledged understanding of her current treatment regimen including potential side effects. [email or web address] Not available 05/27/2025 17:33:38 Reason for Referral Orthopedic Surgeon Referral for Bilateral carpal tunnel syndrome Referring Physician: Manda Gonzales, Family Medicine, Encounter Date: 12/11/2024 Results Created Date Observation Date Name Description Value Unit Range Abnormal Flag Note LastModifiedBy Organization Detail LastModifiedTime 04/08/2004/08/2025 rapid SARS CoV 2 Ag, QL IA, respi rator y speci men Covid Antigen negati ve Not Available [facility] ([facility]) [address] [place] [address], [phone], 04/08/2025 11:52:20 Result Notes None recorded. Problems Name Problem SNOMED Code Status Onset Date Resolution Date Notes Provider Name and Address Organization Details Recorded Time Migraine 11991837 Active 2023 Hollie wheat [facility] 13:31:30 Insomnia 810837818 [facility] 13:31:24 Anxiety 71145135 Active 2023 Hollie wheat [facility] 13:30:55 Fatigue 52450208 Completed 202310/06/2024 [facility] 13:32:31 Polycysti c ovary syndrome 110751359 Active 2023 Hollie wheat [facility] 13:31:59 Moderate persisten t asthma 035270706 Active 2023 Hollie wheat [facility] 13:31:51 Hidradeni tis suppurati va 95410064 Active 2024 Hollie wheat [facility] 13:31:14 Bilateral carpal tunnel syndrome 303398132228 52238 Active 2024 Manda Gonzales MD [address] [place] [address], [phone], [facility] 16:54:32 Abscess of axilla 47887242 Active 2024 Manda Gonzales MD [address] [place] [address], [phone], [facility] 17:01:45 Exacerbat ion of moderate persisten t asthma 264044132 Active 2024 Manda Gonzales MD [address] [place] [address], [phone], [facility] 10:33:40 Morbid obesity 065445485 Active 2024 Manda Gonzales MD [address] [place] [address], [phone], [facility] 15:18:35 Acute asthma 478103028 Active 2024 Manda Gonzales MD [address] [place] [address], [phone], [facility] 17:30:24 Allergic rhinitis 88583116 Active 2024 Manda Gonzales MD [address] [place] [address], [phone], [facility] 17:32:26 Problem Notes None recorded. Procedures Surgical History Date Name Laterality Status Provider Name and Address Organization Details Recorded Time 12/12/19 25 Incision/Drainage-S imple completed Manda Gonzales MD [address] [place] [phone], [facility] 12/14/2024 10:28:50 tonsilectomy/adenoi ds completed [facility]note 3[facility] 12/13/2023 15:36:44 Cholecystectomy completed [facility]note 3[facility] 12/13/2023 15:36:50 Imaging Results None recorded. Procedure Notes None recorded. Medical Equipment None Reported. Allergies Allergen ID Allergen Name Allergen Category Reaction Reaction Severity Criticality Documentation Date Start Date Code Code System Note Provider Name and Address Organization Details Recorded Time 98680 aspirin medicatio n wheezing Not available Not available 06/24/2023 1191 RxNorm REY wheat, [facility] 14:08:25 Medications Name Sig Start Date Stop Date Status Note LastModified by Organization Details LastModified Time methocarbam ol 500 mg tablet TAKE 2 TABLETS BY MOUTH EVERY 8 HOURS 12/08 completed Not Available Not Available Not Available metformin 500 mg tablet TAKE 1 TABLET BY MOUTH TWICE DAILY active Not Available Not Available No t Available venlafaxine ER 37.5 mg capsule,ext ended release 24 hr take 1 capsule BY MOUTH EVERY MORNING 12/08 completed Not Available Not Available Not Available prednisone 10 mg tablet TAKE SIX TABLETS BY MOUTH FOR TWO DAYS, FIVE tabs BY MOUTH FOR ONE DAY, FOUR tabs FOR ONE DAY, THREE tabs FOR ONE DAY ,2 tabs FOR ONE DAY, ONE tab FOR ONE DAY 06/24 completed Not Available Not Available Not Available venlafaxine ER 75 mg capsule,ext ended release 24 hr TAKE ONE CAPSULE BY MOUTH EVERY DAY 06/24 completed Not Available Not Available Not Available doxycycline hyclate 100 mg capsule TAKE 1 CAPSULE BY MOUTH TWICE DAILY 06/24 completed Not Available Not Available Not Available albuterol sulfate 2.5 mg/3 mL (0.083 %) solution for nebulizatio n USE 3 ML IN NEBULIZER EVERY 4 HOURS NEEDED FOR SHORTNESS OF BREATH AND FOR WHEEZING active Not Available Not Available No t Available triazolam 0.25 mg tablet TAKE 1 TABLET BY MOUTH 1 HOUR BEFORE APPOINTME NT 12/11 completed Not Available Not Available Not Available trazodone 50 mg tablet TAKE ONE TABLET BY MOUTH AT BEDTIME as needed for sleep 06/24 completed Not Available Not Available Not Available azithromyci n 250 mg tablet TAKE 2 TABLETS BY MOUTH TODAY, THEN TAKE 1 TABLET DAILY ON DAYS 2-5 04/08 completed Not Available Not Available Not Available tizanidine 4 mg tablet TAKE 1 TABLET BY MOUTH EVERY DAY NEEDED active Not Available Not Available No t Available fluconazole 150 mg tablet TAKE ONE TABLET ONCE 12/12 completed Not Available Not Available Not Available valacyclovi r 1 gram tablet Take 2 tablets every 12 hours by oral route for 1 day. 09/25 completed Not Available Not Available Not Available hydrocodone 5 mg-acetamin ophen 325 mg tablet TAKE 1 TABLET BY MOUTH EVERY 6 HOURS NEEDED FOR PAIN 01/10 completed Not Available Not Available Not Available meloxicam 15 mg tablet TAKE 1 TABLET BY MOUTH EVERY DAY 12/12 completed Not Available Not Available Not Available naltrexone 50 mg tablet Take 1 tablet every day by oral route. 12/08 completed Not Available Not Available Not Available prednisone 20 mg tablet TAKE 1 TABLET BY MOUTH EVERY DAY active Not Available Not Available No t Available rizatriptan 10 mg tablet TAKE 1 TABLET BY MOUTH at ONSET of HEADACHE, MAY REPEAT in TWO hours. no more THAN TWO tablets in 24 hours active Not Available Not Available No t Available olanzapine 5 mg tablet TAKE 1 TABLET BY MOUTH AT BEDTIME 12/08 completed Not Available Not Available Not Available clonazepam 1 mg tablet TAKE 1 TABLET BY MOUTH EVERY DAY NEEDED 09/25 completed Not Available Not Available Not Available sumatriptan 50 mg tablet TAKE 1 TABLET BY MOUTH AT ONSET OF HEADACHE, MAY REPEAT DOSE IN TWO HOURS 03/26 completed Not Available Not Available Not Available thiamine HCl (vitamin B1) 100 mg tablet TAKE 1 TABLET BY MOUTH EVERY DAY FOR 30 DAYS 12/08 completed Not Available Not Available Not Available metronidazo le 500 mg tablet TAKE 1 TABLET BY MOUTH TWICE DAILY for 7 days 01/22 completed Not Available Not Available Not Available sulfamethox azole 800 mg-trimetho prim 160 mg tablet TAKE 1 TABLET BY MOUTH EVERY TWELVE HOURS 01/10 completed Not Available Not Available Not Available ketorolac 10 mg tablet TAKE 1 TABLET BY MOUTH THREE TIMES DAILY NEEDED FOR PAIN 06/24 completed Not Available Not Available Not Available oxycodone-a cetaminophe n 5 mg-325 mg tablet TAKE 1 TABLET BY MOUTH EVERY 4 HOURS as needed for severe pain max of SIX PER day 03/26 completed Not Available Not Available Not Available chlordiazep oxide 5 mg capsule TAKE 2 CAPSULES BY MOUTH EVERY 8 HOURS NEEDED FOR withdrawe l symptoms 12/08 completed Not Available Not Available Not Available lorazepam 0.5 mg tablet TAKE 1 TABLET BY MOUTH EVERY DAY NEEDED active Not Available Not Available No t Available hydrocodone 7.5 mg-acetamin ophen 325 mg tablet TAKE 1 TABLET BY MOUTH EVERY 4 HOURS NEEDED FOR moderate pain max of SIX PER day 03/26 completed Not Available Not Available Not Available cephalexin 500 mg capsule take 1 capsule BY MOUTH FOUR TIMES DAILY FOR 10 DAYS 01/22 completed Not Available Not Available Not Available tobramycin 0.3 % eye drops Instill 2 drops in affected eye EVERY 4 HOURS WHILE AWAKE 12/08 completed Not Available Not Available Not Available buspirone 10 mg tablet TAKE 1 TABLET BY MOUTH TWICE DAILY 03/26 completed Not Available Not Available Not Available prednisone 50 mg tablet TAKE 1 TABLET BY MOUTH ONCE DAILY 04/28 completed Not Available Not Available Not Available promethazin e 25 mg tablet TAKE 1 TABLET BY MOUTH EVERY 6 HOURS NEEDED FOR NAUSEA AND VOMITING 06/24 completed Not Available Not Available Not Available Advair Diskus 250 mcg-50 mcg/dose powder for inhalation INHALE 1 PUFF TWICE DAILY active Not Available Not Available No t Available Advair Diskus 500 mcg-50 mcg/dose powder for inhalation INHALE 1 PUFF BY MOUTH TWICE DAILY active Not Available Not Available No t Available docusate sodium 100 mg capsule TAKE 1 CAPSULE BY MOUTH TWICE DAILY 06/24 completed Not Available Not Available Not Available diclofenac sodium 75 mg tablet,rupa yed release TAKE 1 TABLET BY MOUTH EVERY TWELVE HOURS NEEDED FOR PAIN 12/11 completed Not Available Not Available Not Available cephalexin 500 mg tablet Take 1 tablet twice a day by oral route for 5 days. 09/25 completed Not Available Not Available Not Available mupirocin 2 % topical ointment APPLY OINTMENT TOPICALLY TO AFFECTED AREA TWICE DAILY 06/24 completed Not Available Not Available Not Available levofloxaci n 500 mg tablet TAKE 1 TABLET BY MOUTH EVERY DAY 04/24 completed Not Available Not Available Not Available oxycodone-a cetaminophe n 7.5 mg-325 mg tablet TAKE 1 TABLET BY MOUTH EVERY 6 HOURS FOR 7 DAYS NEEDED FOR PAIN 12/12 completed Not Available Not Available Not Available ondansetron 4 mg disintegrat ing tablet DISSOLVE ONE TABLET BY MOUTH EVERY 8 HOURS NEEDED FOR NAUSEA AND VOMITING for 5 days 03/26 completed Not Available Not Available Not Available fluticasone propionate 50 mcg/actuati on nasal spray,suspe nsion USE 1 SPRAY INTRANASA L EVERY DAY active Not Available Not Available No t Available doxycycline hyclate 100 mg tablet TAKE 1 TABLET BY MOUTH TWICE DAILY FOR 7 DAYS 04/08 completed Not Available Not Available Not Available naproxen 500 mg tablet TAKE 1 TABLET BY MOUTH TWICE DAILY with meals active Not Available Not Available No t Available amoxicillin 875 mg-potassiu m clavulanate 125 mg tablet TAKE 1 TABLET BY MOUTH TWICE DAILY 12/08 completed Not Available Not Available Not Available Ventolin HFA 90 mcg/actuati on aerosol inhaler INHALE TWO PUFFS BY MOUTH EVERY 6 HOURS NEEDED active Not Available Not Available No t Available oxycodone 5 mg tablet TAKE 1 TABLET BY MOUTH EVERY 4 HOURS NEEDED 06/24 completed Not Available Not Available Not Available hydroxyzine pamoate 25 mg capsule take 1 capsule BY MOUTH TWICE DAILY NEEDED FOR irritabil ity for 5 days 12/12 completed Not Available Not Available Not Available bupropion HCl XL 150 mg 24 hr tablet, extended release TAKE 1 TABLET BY MOUTH EVERY DAY active Not Available Not Available No t Available topiramate 50 mg tablet TAKE 1 TABLET BY MOUTH TWICE DAILY active Not Available Not Available No t Available Vivitrol 380 mg intramuscul ar suspension, extended release INJECT INTRAMUSC ULARLY today (11/15/19) 12/12 completed Not Available Not Available Not Available aripiprazol e 2 mg tablet TAKE 1 TABLET BY MOUTH EVERY EVENING 12/08 completed Not Available Not Available Not Available Narcan 4 mg/actuatio n nasal spray CALL 911. Use one full spray in one nostril one time. Repeat every 2-3 minutes as needed if no or minimal response. 03/26 completed Not Available Not Available Not Available Zepbound 5 mg/0.5 mL subcutaneou s pen injector INJECT 5ML SUBCUTANE OUSLY every week active Not Available Not Available No t Available Zepbound 2.5 mg/0.5 mL subcutaneou s pen injector inject 2.5mg SUBCUTANE OUSLY every week active Not Available Not Available No t Available Vitals Date Recorded Body height Body mass index (BMI) Body weight Oxygen saturation Oxygen saturation in Arterial blood by Pulse oximetry Heart rate Respiratory rate Body temperature Systolic And Diastolic Provider Name and Address Organization Details Last Updated DateTime 5 162.56 cm 43.3 kg/m2 848550. 28 g 98 % 98 % 87 /min 18 /min 96.4 [degF] 114/72 mm[Hg] Hollie Bello [facility] 5 16:47:28 Date Recorded Body height Body mass index (BMI) Body weight Body temperature Oxygen saturation Oxygen saturation in Arterial blood by Pulse oximetry Heart rate Systolic And Diastolic Provider Name and Address Organization Details Last Updated DateTime 5 162.56 cm 42.2 kg/m2 044446. 72 g 97.8 [degF] 96 % 96 % 86 /min 120/70 mm[Hg] [facility] 10:25:59 Date Recorded Body height Body mass index (BMI) Body weight Oxygen saturation Oxygen saturation in Arterial blood by Pulse oximetry Heart rate Body temperature Respiratory rate Systolic And Diastolic Provider Name and Address Organization Details Last Updated DateTime 5 162.56 cm 43.4 kg/m2 575316. 57 g 98 % 98 % 70 /min 97.9 [degF] 16 /min 120/70 mm[Hg] MONY ORTEGA [facility] 5 11:48:29 Date Recorded Body height Body mass index (BMI) Body weight Body temperature Oxygen saturation Oxygen saturation in Arterial blood by Pulse oximetry Heart rate Systolic And Diastolic Provider Name and Address Organization Details Last Updated DateTime 5 162.56 cm 45.1 kg/m2 601401. 79 g 97.2 [degF] 97 % 97 % 75 /min 116/76 mm[Hg] [facility] 14:42:37 Date Recorded Body height Body mass index (BMI) Body weight Body temperature Oxygen saturation Oxygen saturation in Arterial blood by Pulse oximetry Heart rate Systolic And Diastolic Provider Name and Address Organization Details Last Updated DateTime 5 162.56 cm 42.9 kg/m2 128534. 09 g 98.2 [degF] 99 % 99 % 100 /min 126/86 mm[Hg] [facility] 5 17:14:23 Social History Question Answer Notes LastModified by Organizat ion Details LastModified Time Tobacco Smoking Status Current [facility] 12/13/2023 15:38:31 Do You Have An Advance Directive? No Information not available 12/13/2023 Are You Blind Or Do You Have Difficulty Seeing? No Information not available 12/13/2023 What Is Your Level Of Caffeine Consumption? Moderate Information not available 12/13/2023 Are You Deaf Or Do You Have Serious Difficulty Hearing? No Information not available 12/13/2023 What Type Of Diet Are You Following? REGULAR Information not available 12/13/2023 What Is The Highest Grade Or Level Of School You Have Completed Or The Highest Degree You Have Received? [id number] Information not available 12/13/2023 Which Of Your Hands Is Dominant? Left Information not available 12/13/2023 What Was The Date Of Your Most Recent Tobacco Screening? 05/27/2025 [email or web address] Information not available 05/27/2025 What Is Your Current Pack Years? 20-29packyear s Information not available 04/28/2025 At What Age Did You Start Smoking Tobacco? 13 [email or web address] Information not available 04/28/2025 How Much Tobacco Do You Smoke? 1 PPD [email or web address] Information not available 04/28/2025 How Many Years Have You Smoked Tobacco? 20 [email or web address] Information not available 04/28/2025 Have You Recently Traveled Abroad? No Information not available 12/13/2023 Do You Have Difficulty Walking Or Climbing Stairs? No Information not available 12/13/2023 Are You Currently In School? No Information not available 12/13/2023 Do You Have Any Dietary Restrictions? No Information not available 12/13/2023 Sex: Unknown Functional Status Question Answer Note LastModified by Organizat ion Details LastModified Time Do you use any illicit or recreational drugs? No Information not available 12/13/2023 What is your level of alcohol consumption? None Information not available 12/13/2023 Are you currently employed? No Information not available 12/13/2023 Do you have transportation difficulties? No Information not available 12/13/2023 Are you able to walk independently without assistance or assistive devices? YESWOREST Information not available 12/13/2023 Do you have difficulty doing errands alone? No Information not available 12/13/2023 Are you able to care for yourself independently? Yes Information not available 12/13/2023 Do you have difficulty dressing, bathing, grooming, or toileting? No Information not available 12/13/2023 What is your exercise level? Moderate Information not available 12/13/2023 Mental Status Question Answer Note LastModified by Organization D etails LastModified Time Do you have difficulty concentrating, remembering or making decisions? No Information no t available 12/13/2023 Family History Relationship Description Onset Age of this Age Resolved Age Notes LastModified by Organization Details LastModified Time Father Hypertensive disorder tgregg Not available 2023 15:37:17 Father Depressive disorder tgregg Not available 2023 15:37:35 Mother Anxiety tgregg Not available 15:37:26 Mother Chronic obstructive pulmonary disease tgregg Not available 2023 15:37:46 Medical History Condition Response Asthma Y Gynecological HistoryNo gynecological history recorded. Obstetrics History GPAL:G 0 P 0 0 0 0 Immunizations Vaccine Type Date Status Note Provider Nam e and Address Organization Details Recorded Time Hep B, adolescent or pediatric 0 completed Not Available [facility] 05/29/2025 12:55:45 Hep A, ped/adol, 2 dose 2 completed Not Available [facility] 05/29/2025 12:55:45 Td (adult), 2 Lf tetanus toxoid, preservative free, adsorbed 2 completed Not Available [facility] 05/29/2025 12:55:45 Hep A, ped/adol, 2 dose 9 completed Not Available [facility] 05/29/2025 12:55:45 influenza, split (incl. purified surface antigen) 9 completed Not Available [facility] 05/29/2025 12:55:45 Tdap 2 completed Not Available [facility] 05/29/2025 12:55:45 Tdap 3 completed Not Available [facility] 05/29/2025 12:55:45 Influenza, split virus, quadrivalent, PF 3 completed Not Available [facility] 05/29/2025 12:55:45 Past Encounters Encounter ID Performer Location Encounter Start Date Encounter Closed Date Diagnosis/Indication Diagnosis SNOMED-CT Code Diagnosis ICD10 Code Diagnosis IMO Codes Diagnosis Note [id number] REINIER NOLAND PA-C [facility] ([facility]) [address] [place] [phone] 11/25/2022 10:39:07 11/25/2022 19:51:58 Low back pain 680745195 M54.50 Ice, stretch, OTC Ibuprofen and Tyelonol. Note for off work today Pain in limb 96859649 M7 9.488 [id number] ANN WALSH [facility] ([facility]) [address] [place] [address] 06/24/2023 13:58:24 06/24/2023 14:54:24 Acute sinusitis 67564904 J01.90 Covid negative today. Start Flonase today. Encouraged to continue tylenol/ib uprofen as needed for pain and fevers. Continue daily allergy medication s. Recommend pushing fluids and using cool mist humidifier at night. If worsening condition or no improvemen t in 7-10 days, return for further evaluation . If severe SOB or chest pain occurs, go to ED. Patient verbalizes understand ing. [id number] Manda Gonzales MD [facility] ([facility]) [address] [place] [phone] 06/30/2023 12:54:24 07/03/2023 11:11:33 Abscess of left axilla [id number] L02.412 Small pustule was unroofed and small amount of pustular material was expressed. No antibiotic s are needed at this time. Follow-up if symptoms do not improve. [id number] RAJ ONEIL APRN [facility] ([facility]) [address] [place] [phone] 5 12/09/2023 10:42:19 12/09/2023 11:47:50 Candidiasis of vagina 16600240 B37.31 Exposure t o sexually transmissible disorder [id number] Z20.2 [id number] Manda Gonzales MD [facility] ([facility]) [address] [place] [address] [phone] 5 12/13/2023 15:26:30 12/13/2023 16:20:08 Migraine 11406613 G43.909 Alyson treatment for migraines including preventati ve medication as well as abortive medication . Will do a combinatio n of both. We will start Topamax for preventati ve and start Imitrex to help with abortive. Insomnia 138930177 G47.0 0 We will see if the Topamax and mental health treatment will help with insomnia before adding any additional medication s for this. Discussed good sleep hygiene. Anxiety 83423558 F41.9 Start Wellbutrin and buspirone to help with depression and anxiety. Adult heal th examination 812353845 Z00.00 Check labs today. Discussed health maintenanc e including well-devin elieser diet and regular exercise. Obesity 978997432 E66.9 Fatigue 46589587 R53.83 Polycystic ovary syndrome 801457861 E28.2 Regular cycles are likely secondary to polycystic ovarian syndrome. Patient has been on metformin in the past and anticipate that it will help. Will restart the medication . [id number] Manda Gonzales MD [facility] ([facility]) [address] [place] [address] [phone] 5 03/26/2024 11:11:35 03/26/2024 11:50:06 Migraine 48291541 G43.909 Will increase her topiramate to twice daily and see if this decreases the frequency of her headaches. Will transition her over to Maxalt and see if this helps with therapy. Anxiety 71201865 F41.9 Patient has not done well on BuSpar or hydroxyzin e we will provide a few clonazepam to help with as needed panic attacks [id number] Manda Gonzales MD [facility] ([facility]) [address] [place] [address] [phone] 5 05/29/2024 14:24:37 05/29/2024 15:00:09 Moderate persistent asthma 951935756 J45.40 She does not appear to be in an acute exacerbati on at this time. However, her asthma is not likely controlled well at baseline. Continue treating allergies and avoiding other triggers. Will start Advair continue to use albuterol as needed. 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 [id number] Manda Gonzales MD [facility] ([facility]) [address] [place] [address] [phone] 5 09/25/2024 16:36:08 09/25/2024 17:32:36 Anxiety 94760207 F41.9 Patient has not done well on BuSpar or hydroxyzin e we will provide a few clonazepam to help with as needed panic attacks Hidradenit is suppurativa 03763225 L73.2 Lesions are likely related to hidradenit is suppurativ a. Discussed skin care and using Hibiclens. Encouraged weight loss. Follow-up if symptoms worsen or do not improve. [id number] Manda Gonzales MD [facility] ([facility]) [address] [place] [address] [phone] 5 12/11/2024 16:40:43 12/15/2024 21:06:28 Bilateral carpal tunnel syndrome [id number] 7395551 G56.03 166996 Patient has known carpal tunnel. The patient has had nerve conduction study that confirmed this. Since her symptoms are worsening and she wants to seek surgical repair, will send referral to orthopedic s. Abscess of axilla 731880 01 L02.823 6960186 Patient had abscess under the right armpit. Incision and drainage was performed. See procedure note. Start Bactrim [id number] Manda Gonzales MD [facility] ([facility]) [address] [place] [address] [phone] 5 01/10/2025 10:18:50 01/13/2025 08:05:53 Exacerbation of moderate persistent asthma 182909205 J45.41 946754 Concerned about asthma exacerbati on. Start prednisone and azithromyc in. Continue to use albuterol inhaler as needed for rescue. Moderate p ersistent asthma 411652074 J45.40 Patient is not having good control of her asthma at baseline. Will increase her Advair dosing to 500 5 0 [id number] ROXIE ANN [facility] ([facility]) [address] [place] [address] [phone] 5 04/08/2025 11:43:07 04/08/2025 12:41:09 Nasal congestion 66255109 R09.81 40910 Viral uppe r respiratory tract infection 339021668 J06.9 829683 Increase po fluids. Rest. May use otc meds as needed for symptoms. Return to clinic with any new or worsening symptoms. [id number] Manda Gonzales MD [facility] ([facility]) [address] [place] [address] [phone] 5 04/28/2025 14:35:52 04/28/2025 15:32:01 Morbid obesity 861581369 E66.01 45007422 - GLP-1 receptor agonists as a potential therapy pending family history clarificat ion. - Obtain relevant family cancer history before initiation . Pain of knee region 1003 237690 M25.562 - Refill Naproxen and Tizanidine previously prescribed for pain and muscle relaxation . [id number] Manda Gonzales MD [facility] ([facility]) [address] [place] [address] 05/27/2025 17:07:52 05/27/2025 17:36:36 Acute asthma 856226705 J45.775 6800087 - Initiate corticoste roids for exacerbati on control.- Maintain current use of respirator y inhalers including Advair and Albuterol. Allergic rhinitis 407785 04 J30.9 [id number] - Encourage regular Flonase administra tion. - Consider supplement al antihistam ine therapy if necessary. Health Concerns Section Related Observation LastModified by Organization Detai ls LastModified Time None Recorded Concern Status LastModified by Organization Details LastModified Time None Recorded Advance Directives Directive N: Payers Insurance Date Sequence Insurance Name Policy Number Policy Fernandez Covered Member ID Fernandez Member ID Guarantor Name 12/13/2023 1 [employer] [place] [employer] [place]AC[place] - [place]) [id number] Janie Medrano [id number] Janie Medrano 12/13/2023 1 *SELF PAY* Sa dorian Medrano 05/23/2025 1 [facility] (MEDICAID HMO) Janie Medrano [id number] Janie Medrano 05/23/2025 [facility] (MEDICAID HMO) Janie Medrano [id number] Janie Medrano Notes Date Note Type Note Provider Name and Address Organization Details Recorded Time 12/11/2024 text/html Musculoskeletal PainReported by Patient This 34-year-old female comes in today for evaluation. Patient states that her carpal tunnel pain has increased and she wants to consider surgical options at this time. she has a area under her right arm that is very painful Manda Gonzales MD [address] [place] [address], [phone], [facility] [place] 12/14/2024 10:55:23 01/10/2025 text/html Upper Respirator y SymptomsReported by PatientUpper Respiratory SymptomsFor quality, patient reportsproductive cough,congested, andbark-like cough. For associated symptoms, patient reportschest pain (just from coughing per pt),yellow-green sputum,shortness of breath,wheezing,diffic ulty breathing at night,fatigue,sore throat (slightly per pt),headache, andchillsbut reportsno vomiting,no diarrhea, andno nausea. For location, patient reportshead,chest, andears.ROS as noted in the HPI Manda Gonzales MD [address] [place] [address], [phone], [facility] 01/12/2025 11:55:27 04/08/2025 text/html ROS as noted in the [facility] walk-in; PCP Dr. Gonzales Patient c/o body aches, congestion and fatigue. Her boyfriend tested positive for covid yesterday. Both of have been sick for a few days. ROXIE ANN [address] [place] [address], [phone], [facility] 04/08/2025 13:05:55 04/28/2025 text/html The patient is a 34-year-old female presenting for a weight loss consultation. She has recognized the need to address her morbid obesity exacerbated post knee surgery. She reports increased weight gain despite lifestyle changes, such as soda elimination. Concerns were raised about her father s side of the family history of thyroid cancer. She inquires about refilling Naproxen and Tizanidine prescriptions, which were previously prescribed for her knee condition. Manda Gonzales MD [address] [place] [address], [phone], [facility] 04/28/2025 15:51:53 05/27/2025 text/html The patient is a 34-year-old female presenting with acute asthma exacerbation and allergic rhinitis. She has experienced a cough for two weeks with productive sputum, nasal congestion, and significant rib soreness from coughing. The patient reports severe shortness of breath at night, managed currently by frequent use of inhalers. She has lost 13 pounds in a month, likely due to Zepbound, and has adjusted by incorporating nutrient-rich drinks into her diet. She typically requires steroids during seasonal flares. Manda Gonzales MD [address] [place] [address], [phone], [facility] 05/28/2025 09:29:12 OBGyn Episode No OBEpisode recorded.
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
--- OUTSIDE RECORDS SUMMARY | 2025-06-08 18:15 | XMS_ITS | Encounter Summary ---
Author Organization [facility] Address [address] [place] [address] Care Team Providers Care Instrument Repair Specialist Name Role Phone Shima Tavarez Primary Care Provider [phone] [phone] Encounter Details Date Type Department Care Team (Late st Contact Info) Description 01/02/2009 Emergency [facility], Authorized P NO ADDRESS ON FILE Alirio Dimas MD NO ADDRESS ON FILE Social History Tobacco Use Types Packs/Day Years Used Date Smoking Tobacco: Every Day Cigarettes Alcohol Use Standard Drinks/Week Comments No 0 (1 standard drink = 0.6 oz pur e alcohol) Comments No Sex and Gender Information Value Date Recorded Sex Assigned at Female 04/12/2024 1:48 AM CDT Legal Sex Female 4:34 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
--- OUTSIDE RECORDS SUMMARY | 2025-06-08 18:15 | XMS_ITS | Encounter Summary ---
Author Organization [facility] Address [address] [place] [address] Care Team Providers Care Milanese Knitting Machine Operator Name Role Phone Shima Tavarez Dena 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 PCP: stiven. ALTERNATIVE PHONE NUMBER: [phone] WHO CALLED: Patient`s mother called. PHARMACY NUMBER: [phone] SECTION 1: REQUESTED ACTION gopal 11/14/06 at 08:41 am: MEDICATION REQUEST: Patient requests a refill. singular DOCTOR`S RESPONSE: yoly 11/14/06 at 09:00 am MEDICATIONS: Call in to Pharmacy she needs to schedule WWE in the next 2 mos. MM SINGULAIR ORAL TABLET 10 MG, 1 Every Day, 30 Dispensed, 1 Fills, 30 Duration/Days Supply, status: CONTINUED, 11/14/2006. SECTION 2: 11-14-06 Called in RX. Spoke with pt mother. terry smalls Electronically Signed by: Rachell Fonseca on Tuesday, November 14, 2006 documented in this encounter Plan of Treatment Not on file documented as of this encounter Visit Diagnoses Not on filedocumented in this encounter Care Teams Milanese Knitting Machine Operator Relationship Specialty Start Date End Date Shima Tavarez FNP [address] [place] [address] PCP - General 12/28/20 documented as of this encounter
--- OUTSIDE RECORDS SUMMARY | 2025-06-08 18:15 | XMS_ITS | Encounter Summary ---
Author Organization [facility] Address [address] [place] [address] Care Team Providers Care Teacher Vocational Training Name Role Phone Shima Tavarez Dena FOOD CONCESSION MANAGER Primary Care Provider [phone] [phone] Encounter Details Date Type Department Care Team (Late st Contact Info) Description 01/01/2007 Orders Only [facility] Family Medicine [facility] [address] [facility] [address] [place] [address] [place] [address] [facility] [address] [place] [address] Social History Tobacco Use Types Packs/Day Years Used Date Smoking Tobacco: Never Assessed Comments Unknown Sex and Gender Information Value Date Recorded Sex Assigned at Female 04/12/2024 1:48 AM CDT Legal Sex Female 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 PCP: Suresh. PCP: Paul. ALTERNATIVE PHONE NUMBER: [phone] WHO CALLED: Patient`s mother called. Christy or sister Mirta CURRENT ALLERGY LIST: SULFA PHARMACY NUMBER: [phone] SECTION 1: REQUESTED ACTION [email or web address] 01/01/07 at 01:13 pm: wants to speak to nurse...states its personal RN/GOLD MARKER RESPONSE: orion 01/01/07 at 02:30 pm Pt started her period 2 days ago. It is very heavy andis very dark, almost looks brown. Pt is having to change pad about every 2 hrs. Pt has severe pain in pelvic area & lower back. States it hurts to even bend over. Pt denies any fever, chills or nausea. Pt is sexually active and has done home preg. test 2x and it has been neg. Has been alternating tylenol & midol and it is not helping cramping at all....Please advise...DRUG ALLERGIES: Sulfa...amarjit DOCTOR`S RESPONSE: yoly 01/01/07 at 02:54 pm I haven't seen her for years. Can send to [facility] Son will need to be seen. MM SECTION 2: DOCTOR`S RESPONSE: azam 01/01/07 at 03:19 pm Please call this medication in. Her bleeding should be better by tomorrow night. I can see her this Monday or early next week. S.P. MEDICATIONS: PROVERA ORAL TABLET 10 MG, one a day for 10 days., 10 Dispensed, 1 Fills, status: NEW PRESCRIPTION,01/01/2007. FINAL ACTION: orion 01/01/07 at 03:47 pm Called pharmacy at 01/01/07 at 03:47 pm. rx called into pharm.....amarjit Pt' s cramping is really bad and does not feel like going to work. Is it ok to give work excuse fortoday? (Abisai - [phone]) SECTION 3: DOCTOR`S RESPONSE: azam 01/01/07 at 04:25 pm Please give work excuse for today. S.P. FINAL ACTION: orion 01/01/07 at 04:33 pm Left message on patient`s recorder or with a family member 01/01/2007 at 04:33 pm. Informing Abisai rice and to call w/fax number if wk excuse needed.....I advised pt's mother of this.....amarjit Electronically Signed by: Amarjit Rodrigez on Monday, January 01, 2007 documented in this encounter Plan of Treatment Not on file documented as of this encounter Visit Diagnoses Not on filedocumented in this encounter Care Teams Teacher Vocational Training Relationship Specialty Start Date End Date Shima Tavarez FNP [address] [place] [phone] PCP - General 12/28/20 documented as of this encounter
--- OUTSIDE RECORDS SUMMARY | 2025-06-08 18:15 | XMS_ITS | Encounter Summary ---
Author Organization [facility] Address [address] [place] [address] Care Team Providers Care Customer Support Assistant Name Role Phone Shima Tavarez Dena GAONAP Primary Care Provider +1 [phone] Encounter Details Date Type Department Care Team (Late st Contact Info) Description 01/05/2007 Orders Only [facility] Family Medicine [facility] [address] [address] [facility] [address] [place] [address] [place] [address] [facility] [address] [place] [address] Social History Tobacco Use Types Packs/Day Years Used Date Smoking Tobacco: Never Assessed Comments Unknown Sex and Gender Information Value Date Recorded Sex Assigned at Female 04/12/2024 1:48 AM CDT Legal Sex Female 4:34 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 BLOOD PRESSURE: 110/68. Left Arm Sitting ( reg cuff) TEMPERATURE: 98??f. Oral LAST MENSTRUAL PERIOD: 01/03/2007 ( very dark blood) ALLERGIES: Allergies are as listed. CHIEF COMPLAINT Patient complains of abdominal pain.abnormal menses. est pt/st falcon PATIENT'S AGE: 16 yrs, 3 mths, 3 wks, 3 days HISTORY: Mother and patient reports heavy menses with dark color discharge, spotting and then stopping off and on last week. Patient is sexually active and taking condoms and she often forgets to take her oral contraceptives. Has been missing work at [employer] due to dysmenorrhea pain. Took one dosage of provera which may have helped with bleeding. Also has taken anaprox. Joshua any pelvic pain today or vaginal discharge, pain with intercourse, or previous STD's. CURRENT PROBLEM LIST: 296.20 AFFECTIVE PSYCHOSES 311 [...] MG, 1 Every Eight Hours, As Needed LO/OVRAL (28) ORAL TABLET 0.3-30 MG-MCG, as directed ALBUTEROL SULFATE INHALATION NEBULIZATION SOLUTION (2.5 MG/3ML) 0.083%, 3ml AEROSOL FOUR TIMES INHALATION NEEDED SINGULAIR ORAL TABLET 10 MG, 1 Every Day PROVERA ORAL TABLET 10 MG, one a day for 10 days. CURRENT ALLERGY LIST: SULFA PHYSICAL EXAM: CONSTITUTIONAL: GENERAL APPEARANCE: Healthy appearing, alert patient, normally nourished, developmentally normal and in no acute distress. EYES: CONJUNCTIVA/LIDS: Conjunctivae and lids appear normal. EARS, NOSE, MOUTH AND THROAT: ORAL: Inspection of gums, lips, palate, and dentition normal. No lesions or masses. Oral mucosa unremarkable with non-inflamed posterior pharynx. NECK: No lymphadenopathy noted. Supple. RESPIRATORY: Clear to auscultation. Normal respiratory effort. CARDIOVASCULAR: CARDIAC: Regular rhythm with no murmurs, rubs, gallops, or abnormal heart sounds. GASTROINTESTINAL: ABDOMEN: Soft, non-tender, without masses. Bowel sound active. LIVER/SPLEEN/KIDNEY: No hepatosplenomegaly. OFFICE PROCEDURES: URINALYSIS RESULTS WBC: WBC`s were trace. NITRITE: nitrites were negative. UROBILINOGEN urobilinogen was 3. PROTEIN: protein was 30. pH: pH was 5. U/A BLOOD: blood was ++. SPECIFIC GRAVITY: specific gravity was 1.010, specific gravity was 1.020. KETONES: ketones were negative. BILIRUBIN: bilirubin was negative. GLUCOSE: glucose was negative. URINE TEST: The urine test done in the office was negative. ASSESSMENT/PLAN: 626.2-MENORRHAGIA/MENOMETORRHAGIA ASSESSMENT: Likely due to irregular hormonal levels due to irregular usage of OCP's. MEDICATIONS: LO/OVRAL (28) ORAL TABLET 0.3-30 MG-MCG PACKS, as directed, 1 Dispensed, 5 Fills, status: CONTINUED, 01/05/2007. PROVERA ORAL TABLET 10 MG, one a day for 10 days., 10 Dispensed, 1 Fills, status: NEW PRESCRIPTION,01/01/2007. PATIENT EDUCATION: Finish Provera and then restart a new pack of OCP's and be compliant. 789.09-OTHER SYMPTOMS INVOLVING ABDOMEN AND PELVIS ASSESSMENT: Consider but more likely dysmenorrhea. LAB ORDERS: Order number: [id number] Test Ordered: URINALYSIS W/O MICRO [id number] Order number: [id number] Test Ordered: TEST (URINE) [id number] RETURN VISIT: Patient instructed to return in a few weeks. for a pap smear as she is overdue. Electronically Signed by: Desiree Prince MD on Saturday, January 06, 2007 documented in this encounter Plan of Treatment Not on file documented as of this encounter Visit Diagnoses Not on filedocumented in this encounter Care Teams Customer Support Assistant Relationship Specialty Start Date End Date Shima Tavarez FNP [address] [place] [phone] PCP - General 12/28/20 documented as of this encounter
--- OUTSIDE RECORDS SUMMARY | 2025-06-08 18:15 | XMS_ITS | Encounter Summary ---
Author Organization [facility] Address [address] [place] [address] Care Team Providers Care Ui Software Developer Name Role Phone Shima Tavarez Primary Care Provider +1 [phone] Encounter Details Date Type Department Care Team (Late st Contact Info) Description 01/05/[address] 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
--- OUTSIDE RECORDS SUMMARY | 2025-06-08 18:15 | XMS_ITS | Encounter Summary ---
Author Organization [facility] Address [address] [place] [address] Care Team Providers Care Customer Success Advocate Name Role Phone Shima Tavarez Primary Care Provider +1 [phone] Encounter Details Date Type Department Care Team (Late st Contact Info) Description 01/15/2007 Outpatient Historical [facility] Family Medicine [address] [address] [place] [address] [place] [address] [place] [address] Social History Tobacco Use Types Packs/Day Years Used Date Smoking Tobacco: Never Assessed Comments Unknown Sex and Gender Information Value Date Recorded Sex Assigned at Female 04/12/2024 1:48 AM CDT Legal Sex Female 4:34 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
--- OUTSIDE RECORDS SUMMARY | 2025-06-08 18:15 | XMS_ITS | Encounter Summary ---
Author Organization [facility] Address [address] [place] [address] Care Team Providers Care Weight Recorder Name Role Phone Shima Tavarez Dena FAUSTIN Primary Care Provider +1 [phone] Encounter Details Date Type Department Care Team (Latest Contact Info) Description 09/26/2006 Outpatient Historical [facility] Family Medicine Danita Yoshi [address] [address] [facility] [address] [place] [address] [place] [address] [address] [facility] [address] [place] [address] Dysmenorrhea (Primary Dx) Social History Tobacco Use Types Packs/Day Years Used Date Smoking Tobacco: Never Assessed Comments Unknown Sex and Gender Information Value Date Recorded Sex Assigned at Female 04/12/2024 1:48 AM CDT Legal Sex Female 4:34 AM PHYSICIAN CODING SPECIALIST Gender Identity Female 04/12/2024 1:48 AM CDT Sexual Orientation Not on file documented as of this encounter Plan of Treatment Not on file documented as of this encounter Procedures Procedure Name Priority Date/Time Associated Diagnosis Comments CBC WITH DIFFERENTIAL Routine 09/26/2006 2:30 PM PHYSICIAN CODING SPECIALIST CBC WITH DIFFERENTIAL Routine 09/26/2006 2:30 PM PHYSICIAN CODING SPECIALIST documented in this encounter Results * CBC WITH DIFFERENTIAL (09/26/2006 2:30 PM PHYSICIAN CODING SPECIALIST) NEUTROPHILS 49 45 - 70 % INTERFAC E SYSTEM LYMPHOCYTES 36 16 - 45 % INTERFAC E SYSTEM MONOCYTES 9 3 - 13 % INTERFACE SYSTEM EOSINOPHILS 5 0 - 7 % INTERFAC E SYSTEM BASOPHILS 1 0 - 2 % INTERFACE SYSTEM NEUTROPHIL ABSOLUTE 2.72 1.90 - 7.00 K/uL INTERFACE SYSTEM LYMPHOCYTE ABSOLUTE 2.02 0.70 - 4.50 K/uL INTERFACE SYSTEM MONOCYTE ABSOLUTE 0.52 0.10 - 1.30 K/uL INTERFACE SYSTEM EOSINOPHIL ABSOLUTE 0.29 0.00 - 0.70 K/uL INTERFACE SYSTEM BASOPHILS ABSOLUTE 0.04 0.00 - 0.20 K/uL INTERFACE SYSTEM 09/26/2006 2:30 PM PHYSICIAN CODING SPECIALIST us Desiree Prince MD HEMATOLOGY ORDERABLES Edited Performing Organization Address City/[facility] Co de Phone Number INTERFACE SYSTEM Refer to clinic/hospital department * (ABNORMAL) CBC WITH DIFFERENTIAL (09/26/2006 2:30 PM PHYSICIAN CODING SPECIALIST) WBC 5.6 4.0 - 9.8 K/uL INTERFACE SYSTEM RBC 4.98(H) 3.90 - 4.90 M/uL INTERFACE SYSTEM HEMOGLOBIN 14.2 11.8 - 14.8 g/dL INTERFACE SYSTEM HEMATOCRIT 41.7 35.5 - 44.0 % INTERFACE SYSTEM MCV 83.7 82.0 - 99.0 fL INTERFACE SYSTEM MCH 28.5 27.2 - 32.6 pg INTERFACE SYSTEM MCHC 34.1 31.5 - 35.5 % INTERFACE SYSTEM RDW 13.4 11.5 - 14.5 % INTERFACE SYSTEM RDW-STDEV 40.7 37.1 - 48.7 fL INTERFACE SYSTEM PLATELETS 324 140 - 350 K/uL INTERFACE SYSTEM MPV 10.8 9.3 - 12.4 fL INTERFACE SYSTEM 09/26/2006 2:30 PM PHYSICIAN CODING SPECIALIST Desiree Prince MD HEMATOLOGY ORDERABLES Edited Performing Organization Address City/[facility] Co de Phone Number INTERFACE SYSTEM Refer to clinic/hospital department documented in this encounter Visit Diagnoses Diagnosis Dysmenorrhea- Primary documented in this encounter Care Teams Weight Recorder Relationship Specialty Start Date End Date Shima Tavarez FNP [address] [place] [phone] PCP - General 12/28/20 documented as of this encounter
--- OUTSIDE RECORDS SUMMARY | 2025-06-08 18:15 | XMS_ITS | Encounter Summary ---
Author Organization [facility] Address [address] [place] [address] Care Team Providers Care Abstract Writer Name Role Phone Shima Tavarez Primary Care Provider +1 [phone] Encounter Details Date Type Department Care Team (Late st Contact Info) Description 01/13/2007 Emergency [facility] Wilda Georges MD [address] [place] [address] Er, Authorized P NO ADDRESS ON FILE Bronchitis, not Specified as Acute or Chronic (Primary Dx) Social History Tobacco Use Types Packs/Day Years Used Date Smoking Tobacco: Never Assessed Comments Unknown Sex and Gender Information Value Date Recorded Sex Assigned at Female 04/12/2024 1:48 AM CDT Legal Sex Female 4:34 AM 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
--- OUTSIDE RECORDS SUMMARY | 2025-06-08 18:15 | XMS_ITS | Encounter Summary ---
Author Organization [facility] Address 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
--- OUTSIDE RECORDS SUMMARY | 2025-06-08 18:15 | XMS_ITS | Clinical Summary ---
Author Organization [facility] Address [address] [place] [address] Care Team Providers Care Sandblaster Supervisor Name Role Phone Shima Tavarez Dena GAONAP Primary Care Provider +1 -[phone] Allergies No known active allergies Medications venlafaxine (EFFEXOR) 75 mg tablet Take 150 mg by mouth daily at bedtime. Active montelukast (SINGULAIR) 10 mg tablet Take 10 mg by mouth daily at bedtime. Active fluticasone propionate (FLONASE) 50 mcg/spray [place], Suspension nasal inhaler Administer 2 Sprays in each nostril daily. Active albuterol HFA 90 mcg inhaler Take 2 Puffs by inhalation every 6 hours as needed for Shortness of Breath. Active albuterol (PROVENTIL,VENTOL IN) 0.63 mg/3 mL Solution for Nebulization Take 0.63 mg by inhalation one time only. Active Social History Tobacco Use Types Packs/Day Years Used Date Smoking Tobacco: Every Day Cigarettes Smokeless Tobacco: Never Alcohol Use Standard Drinks/Week Comments Not Currently 0 (1 standard drink = 0.6 oz pur e alcohol) Comments No Sex and Gender Information Value Date Recorded Sex Assigned at Not on file Legal Sex Female 10:05 PM CDT Gender Identity Not on file Sexual Orientation Not on file Last Filed Vital Signs Vital Sign Reading Time Taken Comments Blood Pressure 101/52 12/28/2020 2:00 PM CDT Pulse 74 12/28/2020 12:55 PM CDT Temperature 36.4 C (97.5 F) 12/28/2020 12:24 PM CDT Respiratory Rate 18 12/28/2020 2:00 PM CDT Oxygen Saturation 97% 12/28/2020 2:00 PM CDT Inhaled Oxygen Concentration - - Weight 116.1 kg (256 lb) 12/28/2020 12:24 PM CDT Height 162.6 cm (5' 4 ) 12/28/2020 12:24 PM CDT Body Mass Index 43.94 12/28/2020 12:24 PM CDT Plan of Treatment Health Maintenance Due Date Last Done Comments DTAP/TDAP/TD VACCINES (1 - Tdap) 2009 HEPATITIS B VACCINES (1 of 3 - 19+ 3-dose series) 08/31 HPV/Cotest (21-29) 2011 HPV VACCINES (1 - 3-dose SCDM series) 2017 CERVICAL CANCER SCREENING 2020 HPV/Cotest (30-65) 2020 PAP SMEAR 2020 INFLUENZA VACCINE (#1) 2025 Care Teams Sandblaster Supervisor Relationship Specialty Start Date End Date Shima Tavarez FNP [address] [place] [phone] PCP - General Nurse Practitioner Family 12/28/20
--- OUTSIDE RECORDS SUMMARY | 2025-06-08 18:15 | XMS_ITS | Encounter Summary ---
Author Organization [facility] Address [address] [place] [address] Care Team Providers Care Physical Testing Supervisor Name Role Phone Shima Tavarez Primary Care Provider +1 -[phone] Encounter Details Date Type Department Care Team (Late st Contact Info) Description 01/05/2007 Outpatient Historical [facility] Family Medicine Danita Belle [address] [facility] [address] [place] [address] [place] [address] [facility] [address] [place] [address] Social History Tobacco Use Types Packs/Day Years Used Date Smoking Tobacco: Never Assessed Comments Unknown Sex and Gender Information Value Date Recorded Sex Assigned at Female 04/12/2024 1:48 AM CDT 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
--- OUTSIDE RECORDS SUMMARY | 2025-06-08 18:15 | XMS_ITS | Encounter Summary ---
Author Organization [facility] Address [address] [place] [address] Care Team Providers Care Bridge Manager Name Role Phone Shima Tavarez Primary Care Provider +1 -[phone] Encounter Details Date Type Department Care Team (Late st Contact Info) Description 12/14/2006 Emergency [facility] Fadumo Fernandes MD [address] [place] [address] Er, Authorized P NO ADDRESS ON FILE Unspecified Asthma, with Exacerbation (Primary Dx) Social History Tobacco Use Types Packs/Day Years Used Date Smoking Tobacco: Never Assessed Comments Unknown Sex and Gender Information Value Date Recorded Sex Assigned at Female 04/12/2024 1:48 AM CDT Legal Sex Female 4:34 AM GEOPHYSICAL E LOGGER Gender Identity Female 04/12/2024 1:48 AM CDT Sexual Orientation Not on file documented as of this encounter Plan of Treatment Not on file documented as of this encounter Visit Diagnoses Diagnosis Unspecified asthma, with exacerbation- Primary documented in this encounter Care Teams Bridge Manager Relationship Specialty Start Date End Date Shima Tavarez FNP [address] [place] [phone] PCP - General 12/28/20 documented as of this encounter
--- OUTSIDE RECORDS SUMMARY | 2025-06-08 18:15 | XMS_ITS | Encounter Summary ---
Author Organization [facility] Address [address] [place] [address] Care Team Providers Care Reserve Operator Name Role Phone Shima Tavarez Primary Care Provider +1 -[phone] Encounter Details Date Type Department Care Team (Late st Contact Info) Description 10/15/2006 Emergency [facility] STDave Ramirez MD NO ADDRESS ON FILE Er, Authorized P NO ADDRESS ON FILE Unspecified Sinusitis (Chronic) (Primary Dx) Social History Tobacco Use Types Packs/Day Years Used Date Smoking Tobacco: Never Assessed Comments Unknown Sex and Gender Information Value Date Recorded Sex Assigned at Female 04/12/2024 1:48 AM CDT Legal Sex Female 4:34 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
--- OUTSIDE RECORDS SUMMARY | 2025-06-08 18:15 | XMS_ITS | Encounter Summary ---
Author Organization [facility] Address [address] [place] [address] Care Team Providers Care Production Machine Shop Supervisor Name Role Phone Shima Tavarez Primary Care Provider +1 -[phone] Encounter Details Date Type Department Care Team (Late st Contact Info) Description 12/17/2006 Emergency [facility] Mirta Hyde MD NO ADDRESS ON FILE Er, Authorized P NO ADDRESS ON FILE Ingrowing Nail (Primary Dx) Social History Tobacco Use Types Packs/Day Years Used Date Smoking Tobacco: Never Assessed Comments Unknown Sex and Gender Information Value Date Recorded Sex Assigned at Female 04/12/2024 1:48 AM CDT Legal Sex Female 4:34 AM POWDER MIXER Gender Identity Female 04/12/2024 1:48 AM CDT Sexual Orientation Not on file documented as of this encounter Plan of Treatment Not on file documented as of this encounter Visit Diagnoses Diagnosis Ingrowing nail- Primary documented in this encounter Care Teams Production Machine Shop Supervisor Relationship Specialty Start Date End Date Shima Tavarez FNP [address] [place] [phone] PCP - General 12/28/20 documented as of this encounter
--- OUTSIDE RECORDS SUMMARY | 2025-06-08 18:15 | XMS_ITS | Encounter Summary ---
Author Organization [facility] Address [address] [place] [address] Care Team Providers Care Payment Analyst Name Role Phone Shima Tavarez Primary Care Provider +1 -[phone] Encounter Details Date Type Department Care Team (Late st Contact Info) Description 10/21/2008 Emergency [facility] Er, Authorized P NO ADDRESS ON FILE Jose Armando Grant MD NO ADDRESS ON FILE Social History Tobacco Use Types Packs/Day Years Used Date Smoking Tobacco: Every Day Alcohol Use Standard Drinks/Week Comments Not Asked 0 (1 standard drink = 0.6 oz pur e alcohol) Comments No Sex and Gender Information Value Date Recorded Sex Assigned at Female 04/12/2024 1:48 AM CDT Legal Sex Female 4:34 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
--- OUTSIDE RECORDS SUMMARY | 2025-06-08 18:15 | XMS_ITS | Encounter Summary ---
Author Organization [facility] Address [address] [place] [address] Care Team Providers Care Special Effects Person Name Role Phone Shima Tavarez Dena FAUSTIN Primary Care Provider +1 [phone] Encounter Details Date Type Department Care Team (Late st Contact Info) Description 09/06/2008 Emergency [facility] Er, Authorized P NO ADDRESS ON FILE Bill Decker MD NO ADDRESS ON FILE Social History Tobacco Use Types Packs/Day Years Used Date Smoking Tobacco: Never Assessed Comments No Sex and Gender Information Value Date Recorded Sex Assigned at Female 04/12/2024 1:48 AM CDT Legal Sex Female 4:34 AM MECHANICAL AND AUTO BODY CAR CHECKER Gender Identity Female 04/12/2024 1:48 AM CDT Sexual Orientation Not on file documented as of this encounter Plan of Treatment Not on file documented as of this encounter Procedures Procedure Name Priority Date/Time Associated Diagnosis Comments XR TIBIA AND FIBULA 2 VW LEFT Routine 09/06/2008 12:00 PM MECHANICAL AND AUTO BODY CAR CHECKER XR KNEE 4+ VW LEFT Routine 09/06/2008 12 :00 PM MECHANICAL AND AUTO BODY CAR CHECKER documented in this encounter Results * XR KNEE 4+ VW LEFT (09/06/2008 12:00 PM MECHANICAL AND AUTO BODY CAR CHECKER) Anatomical Region Laterality Modality Lower Extremity Other 09/06/2008 12:0 0 PM MECHANICAL AND AUTO BODY CAR CHECKER Narrative 09/06/2008 12:22 PM MECHANICAL AND AUTO BODY CAR CHECKER [facility] [address], [place] [address] Admit Date: 09/06/2008 JUNIOR DUNLAP Sex: F Admit Prov: ER, AUTHORIZED P Date: 1990 Primary Care Prov: SHEELA PLEITEZ CMRN: [id number] Room: [facility] SSN: [id number] IMAGING SERVICES Ordering Prov: N/A Accession Number: [id number] Interpretation Left knee 4 views, 09/06/2008 Indication: Fall, pain Findings: There are no abnormalities within the bones, joints, or soft tissues. Impression: Normal. . Dictated by: ABDULLAHI RIOS 09/06/2008 12:19 Electronically signed by: ABDULLAHI RIOS 09/06/2008 12:20 Procedure Note Abdullahi Rios - 09/06/[address] [address] Admit Date: 09/06/2008 JUNIOR DUNLAP Sex: F Admit Prov: ER, AUTHORIZED P Date: 1990 Primary Care Prov: SHEELA PLEITEZ CMRN: [id number] Room: [facility] SSN: [address] [place] [address] IMAGING SERVICES Ordering Prov: N/A Interpretation Left knee 4 views, 09/06/2008 Indication: Fall, pain Findings: There are no abnormalities within the bones, joints, orsoft tissues. Impression: Normal. . Dictated by: ABDULLAHI RIOS 09/06/2008 12:19 Electronically signed by: ABDULLAHI RIOS 09/06/2008 12:20 Bill Decker MD DIAGNOSTIC IMAGING ORDERABLES Final Result * XR TIBIA AND FIBULA 2 VW LEFT (09/06/2008 12:00 PM MECHANICAL AND AUTO BODY CAR CHECKER) Anatomical Region Laterality Modality Lower Extremity Other 09/06/2008 12:0 0 PM MECHANICAL AND AUTO BODY CAR CHECKER Narrative 09/06/2008 12:23 PM MECHANICAL AND AUTO BODY CAR CHECKER [address] [address] Admit Date: 09/06/2008 JUNIOR DUNLAP Sex: F Admit Prov: ER, AUTHORIZED P Date: 1990 Primary Care Prov: SHEELA PLEITEZ CMRN: [id number] [facility] [address] [place] [address] IMAGING SERVICES Ordering Prov: N/A Accession Number: [id number] Interpretation Left tibia and fibula AP and lateral, 09/06/2008 Indication: Fall, pain Findings: No abnormalities are seen in the bones, joints, or soft tissues. Impression: Normal. . Dictated by: ABDULLAHI RIOS 09/06/2008 12:20 Electronically signed by: ABDULLAHI RIOS 09/06/2008 12:21 Procedure Note Abdullahi Rios - 09/06/[address] [address] Admit Date: 09/06/2008 JUNIOR DUNLAP Sex: F Admit Prov: ER, AUTHORIZED P Date: 1990 Primary Care Prov: SHEELA PLEITEZ CMRN: [id number] [facility] [address] [place] [address] IMAGING SERVICES Ordering Prov: N/A Interpretation Left tibia and fibula AP and lateral, 09/06/2008 Indication: Fall, pain Findings: No abnormalities are seen in the bones, joints, or softtissues. Impression: Normal. . Dictated by: ABDULLAHI RIOS 09/06/2008 12:20 Electronically signed by: ABDULLAHI RIOS 09/06/2008 12:21 Bill Decker MD DIAGNOSTIC IMAGING ORDERABLES Final Result documented in this encounter Visit Diagnoses Not on filedocumented in this encounter Care Teams Special Effects Person Relationship Specialty Start Date End Date Shima Tavarez FNP [address] [place] [address] PCP - General 12/28/20 documented as of this encounter
--- OUTSIDE RECORDS SUMMARY | 2025-06-08 18:15 | XMS_ITS | Encounter Summary ---
Author Organization [facility] Address [address] [place] [address] Care Team Providers Care Hide Buffer Name Role Phone Shima Tavarez Primary Care Provider +1 [phone] Encounter Details Date Type Department Care Team (Late st Contact Info) Description 05/09/2002 Outpatient Historical [facility] Er Medicine [facility] [address] [facility] [address] [place] [address] Grace Miller MD NO ADDRESS ON FILE Social History Tobacco Use Types Packs/Day Years Used Date Smoking Tobacco: Never Assessed Comments Unknown Sex and Gender Information Value Date Recorded Sex Assigned at Female 04/12/2024 1:48 AM CDT Legal Sex Female 4:34 AM COST SPECIALIST Gender Identity Female 04/12/2024 1:48 AM CDT Sexual Orientation Not on file documented as of this encounter Plan of Treatment Not on file documented as of this encounter Visit Diagnoses Not on filedocumented in this encounter Care Teams Hide Buffer Relationship Specialty Start Date End Date Shima Tavarez FNP [address] [place] [phone] PCP - General 12/28/20 documented as of this encounter
--- OUTSIDE RECORDS SUMMARY | 2025-06-08 18:15 | XMS_ITS | Encounter Summary ---
Author Organization [facility] Address [address] [place] [address] Care Team Providers Care Marketing Research Coordinator Name Role Phone Shima Tavarez Primary Care Provider +1 [phone] Encounter Details Date Type Department Care Team (Late st Contact Info) Description 01/15/2007 Outpatient Historical [facility] Family Medicine [address] [place] [address] [place] [address] [place] [address] Social History Tobacco Use Types Packs/Day Years Used Date Smoking Tobacco: Never Assessed Comments Unknown Sex and Gender Information Value Date Recorded Sex Assigned at Female 04/12/2024 1:48 AM CDT Legal Sex Female 4:34 AM CONSUMER ANALYST Gender Identity Female 04/12/2024 1:48 AM CDT Sexual Orientation Not on file documented as of this encounter Plan of Treatment Not on file documented as of this encounter Visit Diagnoses Not on filedocumented in this encounter Care Teams Marketing Research Coordinator Relationship Specialty Start Date End Date Shima Tavarez FNP [address] [place] [address] PCP - General 12/28/20 documented as of this encounter
[2025-06-08 18:16] VITALS: BP 148/85; PULSE 82; RESP 18; TEMP 36.5; O2SAT 100
--- OUTSIDE RECORDS SUMMARY | 2025-06-08 18:16 | XMS_ITS | Encounter Summary ---
Author Organization [facility] Address [address] [place] [address] Care Team Providers Care Application Development Intern Name Role Phone Shima Tavarez Primary Care Provider +1 [phone] Encounter Details Date Type Department Care Team (Late st Contact Info) Description 04/07/2005 Emergency [facility] Wilda Georges MD [address] [place] [address] Er, Authorized P NO ADDRESS ON FILE LOWER LEG INJURY NOS (Primary Dx) Social History Tobacco Use Types Packs/Day Years Used Date Smoking Tobacco: Never Assessed Comments Unknown Sex and Gender Information Value Date Recorded Sex Assigned at Female 04/12/2024 1:48 AM CDT Legal Sex Female 4:34 AM REPORT ANALYST Gender Identity Female 04/12/2024 1:48 AM CDT Sexual Orientation Not on file documented as of this encounter Plan of Treatment Not on file documented as of this encounter Visit Diagnoses Diagnosis Injury, other and unspecified, knee, leg, ankle, and foot- Primary documented in this encounter Care Teams Application Development Intern Relationship Specialty Start Date End Date Shima Tavarez FNP [address] [place] [address] PCP - General 12/28/20 documented as of this encounter
--- OUTSIDE RECORDS SUMMARY | 2025-06-08 18:16 | XMS_ITS | Encounter Summary ---
Author Organization [facility] Address 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
--- OUTSIDE RECORDS SUMMARY | 2025-06-08 18:16 | XMS_ITS | Encounter Summary ---
Author Organization [facility] Address [address] [place] [address] Care Team Providers Care Taxicab Dispatcher Name Role Phone Shima Tavarez Primary Care Provider [phone] [phone] Encounter Details Date Type Department Care Team (Late st Contact Info) Description 09/30/2004 Outpatient Historical [facility] Family Medicine Danita Yoshi [address] [facility] [address] [place] [phone] [place] [address] 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
--- OUTSIDE RECORDS SUMMARY | 2025-06-08 18:16 | XMS_ITS | Encounter Summary ---
Author Organization [facility] Address [address] [place] [address] Care Team Providers Care Soaping Machine Back Tender Name Role Phone Shima Tavarez Dena GAONAP Primary Care Provider [phone] [phone] Encounter Details Date Type Department Care Team (Late st Contact Info) Description 04/01/2008 Outpatient Historical [facility] [address] [address] Pavithra Sewell MD [address] [place] [address] Social History Tobacco Use Types Packs/Day Years Used Date Smoking Tobacco: Never Assessed Comments Unknown Sex and Gender Information Value Date Recorded Sex Assigned at Female 04/12/2024 1:48 AM CDT Legal Sex Female 4:34 AM VASC TECH Gender Identity Female 04/12/2024 1:48 AM CDT Sexual Orientation Not on file documented as of this encounter Plan of Treatment Not on file documented as of this encounter Procedures Procedure Name Priority Date/Time Associated Diagnosis Comments T3 FREE Routine 04/01/2008 4:10 PM CDT TSH Routine 04/01/2008 4:10 PM CDT T4 FREE Routine 04/01/2008 4:10 PM CDT documented in this encounter Results * TSH (04/01/2008 4:10 PM CDT) TSH 3.30 0.27 - 4.20 uU/mL [facility] Blood specimen (specimen) 04/01/2008 4:10 PM CDT 04/01/2008 4:10 PM CDT us Pavithra Sewell MD CHEMISTRY ORDERABLES Final Resul t Performing Organization Address City/[facility] de Phone Number INTERFACE SYSTEM Refer to clinic/hospital department [facility] CLIA# [id number] [address] [place] [address] * T4 FREE (04/01/2008 4:10 PM CDT) T4 FREE 1.2 0.9 - 1.7 ng/dL [facility] Blood specimen (specimen) 04/01/2008 4:10 PM CDT 04/01/2008 4:10 PM CDT us Pavithra Sewell MD CHEMISTRY ORDERABLES Final Resul t Performing Organization Address [facility] Phone Number INTERFACE SYSTEM Refer to clinic/hospital department [facility] CLIA# [id number] [address] [place] [address] * T3 FREE (04/01/2008 4:10 PM CDT) T3 FREE 3.2 2.5 - 4.4 pg/mL [facility] Blood specimen (specimen) 04/01/2008 4:10 PM CDT 04/01/2008 4:10 PM CDT us Pavithra Sewell MD CHEMISTRY ORDERABLES Final Resul t Performing Organization Address City/[facility] de Phone Number INTERFACE SYSTEM Refer to clinic/hospital department [facility] CLIA# [id number] [address] [place] [address] documented in this encounter Visit Diagnoses Not on filedocumented in this encounter Care Teams Soaping Machine Back Tender Relationship Specialty Start Date End Date Shima Tavarez FNP [address] [place] [phone] PCP - General 12/28/20 documented as of this encounter
--- OUTSIDE RECORDS SUMMARY | 2025-06-08 18:16 | XMS_ITS | Encounter Summary ---
Author Organization [facility] Address [address] [place] [address] Care Team Providers Care Packing Room Inspector Name Role Phone Shima Tavarez Primary Care Provider [phone] [phone] Encounter Details Date Type Department Care Team (Late st Contact Info) Description 06/05/2006 Emergency [facility] Kendra Goldstein MD [facility] [place] [address] Er, Authorized P NO ADDRESS ON FILE Sprain and Strain of Unspecified Site of Foot (Primary Dx) Social History Tobacco Use Types Packs/Day Years Used Date Smoking Tobacco: Never Assessed Comments Unknown Sex and Gender Information Value Date Recorded Sex Assigned at Female 04/12/2024 1:48 AM CDT Legal 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
--- OUTSIDE RECORDS SUMMARY | 2025-06-08 18:16 | XMS_ITS | Encounter Summary ---
Author Organization [facility] Address [address] [place] [address] Care Team Providers Care Manager Music Name Role Phone Shima Tavarez Primary Care Provider +1 [phone] Encounter Details Date Type Department Care Team (Late st Contact Info) Description 09/30/2004 Outpatient Historical [facility] Family Medicine Danita Yoshi [address] [employer] [facility] [address] [place] [phone] [place] [address] 

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
--- OUTSIDE RECORDS SUMMARY | 2025-06-08 18:16 | XMS_ITS | Encounter Summary ---
Author Organization [facility] Address [address] [place] [address] Care Team Providers Care Pin Or Clip Fastener Name Role Phone Shima Tavarez Primary Care Provider [phone] Encounter Details Date Type Department Care Team (Late st Contact Info) Description 04/14/2006 Emergency [facility] Shahzad Harmon MD [address] [place] [id number] Er, Authorized P NO ADDRESS ON FILE Unspecified Asthma, with Exacerbation (Primary Dx) Social History Tobacco Use Types Packs/Day Years Used Date Smoking Tobacco: Never Assessed Comments Unknown Sex and Gender Information Value Date Recorded Sex Assigned at Female 04/12/2024 1:48 AM CDT Legal Sex Female 4:34 AM PUPPET MASTER Gender Identity Female 04/12/2024 1:48 AM CDT Sexual Orientation Not on file documented as of this encounter Plan of Treatment Not on file documented as of this encounter Visit Diagnoses Diagnosis Unspecified asthma, with exacerbation- Primary documented in this encounter Care Teams Pin Or Clip Fastener Relationship Specialty Start Date End Date Shima Tavarez FNP [address] [place] [address] PCP - General 12/28/20 documented as of this encounter
--- OUTSIDE RECORDS SUMMARY | 2025-06-08 18:16 | XMS_ITS | Encounter Summary ---
Author Organization [facility] Address [address] [place] [address] Care Team Providers Care Retail Field Representative Name Role Phone Shima Tavarez Dena GAONAP Primary Care Provider +1 [phone] Encounter Details Date Type Department Care Team (Latest Contact Info) Description 03/10/2008 Outpatient Historical [facility] [address] [phone] Pavithra Sewell MD [address] [place] [address] Absence of Menstruation Social History Tobacco Use Types Packs/Day Years Used Date Smoking Tobacco: Never Assessed Comments Unknown Sex and Gender Information Value Date Recorded Sex Assigned at Female 04/12/2024 1:48 AM CDT Legal Sex Female 4:34 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 MAKER Gender Identity Female 04/12/2024 1:48 AM CDT Sexual Orientation Not on file documented as of this encounter Plan of Treatment Not on file documented as of this encounter Procedures Procedure Name Priority Date/Time Associated Diagnosis Comments TSH REFLEXIVE Routine 03/10/2008 5:01 PM CDT PROLACTIN Routine 03/10/2008 5:01 PM CDT INSULIN LEVEL Routine 03/10/2008 5:01 PM CDT HCG QUANTITATIVE, BLOOD Routine 03/10/2008 5:01 PM CDT T4 FREE Routine 03/10/2008 5:01 PM CDT LUTEINIZING HORMONE Routine 03/10/2008 5 :01 PM CDT FSH Routine 03/10/2008 5:01 PM CDT GLUCOSE LEVEL Routine 03/10/2008 5:01 PM CDT HEPATIC FUNCTION PANEL Routine 03/10/2008 5:01 PM CDT LIPID PANEL Routine 03/10/2008 5:01 PM CDT documented in this encounter Results * T4 FREE (03/10/2008 5:01 PM CDT) FREE T4E,THYROID SCREEN 1.4 0.9 - 1.7 ng/dL [facility] Blood specimen (specimen) 03/10/2008 5:01 PM CDT 03/10/2008 5:19 PM CDT us Pavithra Sewell MD CHEMISTRY ORDERABLES Final Resul t Performing Organization Address City/[facility]/ZIP Co de Phone Number [facility] CLIA# [id number] [address] [place] [address] * (ABNORMAL) TSH REFLEXIVE (03/10/2008 5:01 PM CDT) TSH 7.34(H) 0.27 - 4.20 uU/mL [facility] Blood specimen (specimen) 03/10/2008 5:01 PM CDT 03/10/2008 5:19 PM CDT us Pavithra Sewell MD CHEMISTRY ORDERABLES Final Resul t [facility] CLIA# [id number] [address] [place], [place] [address] * PROLACTIN (03/10/2008 5:01 PM CDT) PROLACTIN 8.45 ng/mL [facility] Comment: Female: Non- Reference Range 18 years - Adult = 4.79 - 23.30 ng/mL No Reference Range Established for patients less than 18 years of age. Blood specimen (specimen) 03/10/2008 5:01 PM CDT 03/10/2008 5:19 PM CDT Pavithra Sewell MD CHEMISTRY ORDERABLES Final Resul t Performing Organization Address [facility] Co de Phone Number [facility] CLIA# [id number] [address] [place] [address] * LUTEINIZING HORMONE (03/10/2008 5:01 PM CDT) LUTEINIZING HORMONE 0.9 0.5 - 41.7 mIU/mL [facility] Comment: Luteinizing Hormone Reference Range: Female: Normal Menstruating Female Follicular Phase 2.4 - 12.6 mIU/mL Ovulation Phase 14.0 - 95.6 mIU/mL Luteal Phase 1.0 - 11.4 mIU/mL Post Menopausal 7.7 - 58.5 mIU/mL Children less than 1 year old: Call laboratory for reference range. Blood specimen (specimen) 03/10/2008 5:01 PM CDT 03/10/2008 5:19 PM CDT Pavithra Sewell MD CHEMISTRY ORDERABLES Edited Performing Organization Address [facility]/ZIP Co de Phone Number [facility] CLIA# [id number] [address] [place] [address] * INSULIN LEVEL (03/10/2008 5:01 PM CDT) INSULIN LEVEL 11 <17 uIU/mL [facility] Comment: Lab test performed by: [employer] [place] [address] [address] [place] [phone] AMADOR CHASE MD Blood specimen (specimen) 03/10/2008 5:01 PM CDT 03/10/2008 5:19 PM CDT us Pavithra Sewell MD CHEMISTRY ORDERABLES Final Resul t [facility] CLIA# [id number] [address] [facility] [facility] [place] [address] * HCG QUANTITATIVE, BLOOD (03/10/2008 5:01 PM CDT) HCG QUANT, BLOOD <5 0 - 5 mIU/mL [facility] Comment: Result of 5 - 25 mIU/mL [...] test and correlated with other clinical evidence. Blood specimen (specimen) 03/10/2008 5:01 PM CDT 03/10/2008 5:19 PM CDT us Pavithra Sewell MD CHEMISTRY ORDERABLES Edited Performing Organization Address [facility] Co de Phone Number [facility] CLIA# [id number] [address] [place] [address] * (ABNORMAL) GLUCOSE LEVEL (03/10/2008 5:01 PM CDT) GLUCOSE 58(L) 60 - 110 mg/dL [facility] Blood specimen (specimen) 03/10/2008 5:01 PM CDT 03/10/2008 5:19 PM CDT us Pavithra Sewell MD CHEMISTRY ORDERABLES Final Resul t Performing Organization Address [facility] de Phone Number [facility] CLIA# [id number] [address] [place] [address] * FSH (03/10/2008 5:01 PM CDT) FSH 1.6 1.6 - 17.0 mIU/mL [facility] Comment: FSH Reference Range: Female: Normally Menstruating Female Follicular Phase 3.5 - 12.5 mIU/mL Ovulation Phase 4.7 - 21.5 mIU/mL Luteal Phase 1.7 - 7.7 mIU/mL Post Menopausal 25.8 - 134.8 mIU/mL Children less than 1 year old: Call laboratory for reference range. Blood specimen (specimen) 03/10/2008 5:01 PM CDT 03/10/2008 5:19 PM CDT us Pavithra Sewell MD CHEMISTRY ORDERABLES Final Resul t Performing Organization Address [facility] Co de Phone Number [facility] CLIA# [id number] [address] [place] [address] * HEPATIC FUNCTION PANEL (03/10/2008 5:01 PM CDT) BILIRUBIN DIRECT 0.1 0.0 - 0.3 mg/dL [facility] AST 22 12 - 32 U/L [facility] ALBUMIN 4.5 3.2 - 4.5 g/dL [facility] ALT 24 0 - 31 U/L [facility] BILIRUBIN TOTAL 0.2 0.2 - 1.0 mg/dL [facility] ALKALINE PHOSPHATASE 84 35 - 187 U/L [facility] TOTAL PROTEIN 7.3 6.3 - 8.6 g/dL [facility] Blood specimen (specimen) 03/10/2008 5:01 PM CDT 03/10/2008 5:19 PM CDT us Pavithra Sewell MD CHEMISTRY ORDERABLES Final Resul t [facility] CLIA# [id number] [address] [place], [place] [address] * (ABNORMAL) LIPID PANEL (03/10/2008 5:01 PM CDT) HDL 73 36 - 76 mg/dL [facility] CHOLESTEROL 171(H) 90 - 169 mg/dL [facility] CHOL/HDL RATIO 2.3 2.0 - 5.0 [facility] TRIGLYCERIDE 113 40 - 136 mg/dL [facility] LDL CALCULATED 75 <=109 mg/dL [facility] LIPID PANEL COMMENT See Below [facility] Comment: The adult ATP and pediatric NCEP classifications for lipids are available on the [facility] Intranet at: http://[facility] health centerOsitoet/unity/sjmmclab.nsf Select: Lab Policies and Procedures,Current Select: Lipid Panel Interpretation Blood specimen (specimen) 03/10/2008 5:01 PM CDT 03/10/2008 5:19 PM CDT us Pavithra Sewell MD CHEMISTRY ORDERABLES Edited [facility] CLIA# [id number] [address] [place] [address] documented in this encounter Visit Diagnoses Diagnosis Absence of menstruation documented in this encounter Care Teams Retail Field Representative Relationship Specialty Start Date End Date Shima Tavarez FNP [address] [place] [phone] PCP - General 12/28/20 documented as of this encounter
--- OUTSIDE RECORDS SUMMARY | 2025-06-08 18:16 | XMS_ITS | Encounter Summary ---
Author Organization [facility] Address [address] [place] [address] Care Team Providers Care Employee Health Rn Name Role Phone Shima Tavarez Primary Care Provider +1 [phone] Encounter Details Date Type Department Care Team (Late st Contact Info) Description 09/18/2006 Emergency [facility] Karel Kumar MD NO ADDRESS ON FILE Er, Authorized P NO ADDRESS ON FILE Viral Infection (Primary Dx) Social History Tobacco Use Types Packs/Day Years Used Date Smoking Tobacco: Never Assessed Comments Unknown Sex and Gender Information Value Date Recorded Sex Assigned at Female 04/12/2024 1:48 AM CDT Legal Sex Female 4:34 AM CARCASS TRIMMER Gender Identity Female 04/12/2024 1:48 AM CDT Sexual Orientation Not on file documented as of this encounter Plan of Treatment Not on file documented as of this encounter Visit Diagnoses Diagnosis Unspecified viral infection, in conditions classified elsewhere and of unspecified site- Primary documented in this encounter Care Teams Employee Health Rn Relationship Specialty Start Date End Date Shima Tavarez FNP [address] [place] [phone] PCP - General 12/28/20 documented as of this encounter
--- OUTSIDE RECORDS SUMMARY | 2025-06-08 18:16 | XMS_ITS | Encounter Summary ---
Author Organization [facility] Address [address] [place] [address] Care Team Providers Care Screen Stretcher Name Role Phone Shima Tavarez Primary Care Provider +1 [phone] Encounter Details Date Type Department Care Team (Late st Contact Info) Description 07/19/2005 Emergency [facility] Wilfredo Cardoso, MEDICAL CASE MANAGER [address] [address] Er, Authorized P NO ADDRESS ON FILE ASTHMA UNSPECIFIED WITH EXAC (Primary Dx) Social History Tobacco Use Types Packs/Day Years Used Date Smoking Tobacco: Never Assessed Comments Unknown Sex and Gender Information Value Date Recorded Sex Assigned at Female 04/12/2024 1:48 AM CDT Legal Sex Female 4:34 AM BOILER 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
--- OUTSIDE RECORDS SUMMARY | 2025-06-08 18:16 | XMS_ITS | Encounter Summary ---
Author Organization [facility] Address [address] [place] [address] Care Team Providers Care Horse Stud Manager Name Role Phone Shima Tavarez Primary Care Provider +1 [phone] Encounter Details Date Type Department Care Team (Late st Contact Info) Description 05/25/2006 Emergency [facility] Hyedi Miguel MD NO ADDRESS ON FILE Er, Authorized P NO ADDRESS ON FILE Sprain and Strain of Unspecified Site of Knee and Leg (Primary Dx) Social History Tobacco Use Types Packs/Day Years Used Date Smoking Tobacco: Never Assessed Comments Unknown Sex and Gender Information Value Date Recorded Sex Assigned at Female 04/12/2024 1:48 AM CDT Legal Sex Female 4:34 AM TELEPHONE INSTRUMENT SUPERVISOR Gender Identity Female 04/12/2024 1:48 AM CDT Sexual Orientation Not on file documented as of this encounter Plan of Treatment Not on file documented as of this encounter Visit Diagnoses Diagnosis Sprain and strain of unspecified site of knee and leg- Primary documented in this encounter Care Teams Horse Stud Manager Relationship Specialty Start Date End Date Shima Tavarez FNP [address] [place] [phone] PCP - General 12/28/20 documented as of this encounter
--- OUTSIDE RECORDS SUMMARY | 2025-06-08 18:16 | XMS_ITS | Encounter Summary ---
Author Organization [facility] Address [address] [place] [address] Care Team Providers Care Lock Setter Name Role Phone Shima Tavarez Primary Care Provider +1 [phone] Encounter Details Date Type Department Care Team (Late st Contact Info) Description 12/13/2005 Emergency [facility] Mirta Hyde MD NO ADDRESS ON FILE Er, Authorized P NO ADDRESS ON FILE Abdominal Pain, Right Upper Quadrant (Primary Dx) Social History Tobacco Use Types Packs/Day Years Used Date Smoking Tobacco: Never Assessed Comments Unknown Sex and Gender Information Value Date Recorded Sex Assigned at Female 04/12/2024 1:48 AM CDT Legal Sex Female 4:34 AM INSPECTOR STRUCTURAL BONDING Gender Identity Female 04/12/2024 1:48 AM CDT Sexual Orientation Not on file documented as of this encounter Plan of Treatment Not on file documented as of this encounter Visit Diagnoses Diagnosis Abdominal pain, right upper quadrant- Primary documented in this encounter Care Teams Lock Setter Relationship Specialty Start Date End Date Shima Tavarez FNP [address] [place] [phone] PCP - General 12/28/20 documented as of this encounter
--- OUTSIDE RECORDS SUMMARY | 2025-06-08 18:16 | XMS_ITS | Encounter Summary ---
Author Organization [facility] Address [address] [place] [address] Care Team Providers Care Bail Agent Name Role Phone Shima Tavarez Dena FAUSTIN Primary Care Provider [phone] [phone] Encounter Details Date Type Department Care Team (Late st Contact Info) Description 08/12/2008 Emergency [facility] Er, Authorized P NO ADDRESS ON FILE Eduardo Leon, [address] [place] [address] Social History Tobacco Use Types Packs/Day Years Used Date Smoking Tobacco: Never Assessed Comments Unknown Sex and Gender Information Value Date Recorded Sex Assigned at Female 04/12/2024 1:48 AM CDT Legal Sex Female 4:34 AM LCPC Gender Identity Female 04/12/2024 1:48 AM CDT Sexual Orientation Not on file documented as of this encounter Plan of Treatment Not on file documented as of this encounter Procedures Procedure Name Priority Date/Time Associated Diagnosis Comments POC , URINE Routine 08/12/2008 3:02 AM LCPC XR CHEST PA AND LATERAL 2 VW Routine 08/12/2008 2:36 AM LCPC documented in this encounter Results * POC , URINE (08/12/2008 3:02 AM [facility]) , URINE POC Negative Negative [facility] SPECIFIC GRAVITY UA 1.010 1.001 - 1.035 [facility] Urine specimen (specimen) 08/12/2008 3:02 AM LCPC 08/12/2008 3:02 AM LCPC us Authorized P Er POINT OF CARE TESTING Final Resu lt INTERFACE SYSTEM Refer to clinic/hospital department [facility] CLIA# [id number] [address] [place] [address] * XR CHEST PA AND LATERAL (08/12/2008 2:36 AM LCPC) Anatomical Region Laterality Modality Chest Other 08/12/2008 2:36 AM [facility] Narrative 08/12/2008 8:12 AM [facility] [address] [place], [place] [address] Admit Date: 08/12/2008 JUNIOR DUNLAP Sex: F Admit Prov: ER, AUTHORIZED P Date: 1990 Primary Care Prov: SHEELA PLEITEZ CMRN: [id number] [facility] N: [id number] IMAGING SERVICES Ordering Prov: N/A Accession Number: [id number] Interpretation Examination: Chest 2 views Clinical History: Cough Findings: The silhouettes of the heart, lungs, mediastinum, pleura and bony thorax are within normal limits. There is no infiltration. Impression: Negative. . Dictated by: Abhinav SALEEM 08/12/2008 08:10 Electronically signed by: Abhinav SALEEM 08/12/2008 08:11 Procedure Note Shahzad Saleem MD - 08/12/2008 [facility] [address] [place], [place] [address] Admit Date: 08/12/2008 JUNIOR DUNLAP Sex: F Admit Prov: ER, AUTHORIZED P Date: 1990 Primary Care Prov: SHEELA PLEITEZ CMRN: [id number] [facility] SSN: [id number] IMAGING SERVICES Ordering Prov: N/A Interpretation Examination: Chest 2 views Clinical History: Cough Findings: The silhouettes of the heart, lungs, mediastinum, pleuraand bony thorax are within normal limits. There is no infiltration. Impression: Negative. . Dictated by: Abhinav SALEEM 08/12/2008 08:10 Electronically signed by: Abhinav SALEEM 08/12/2008 08:11 Eduardo Leon DO DIAGNOSTIC IMAGING ORDERABLES Final Result documented in this encounter Visit Diagnoses Not on filedocumented in this encounter Care Teams Bail Agent Relationship Specialty Start Date End Date Shima Tavarez, ROXIE [address] [place] [phone] PCP - General 12/28/20 documented as of this encounter
--- OUTSIDE RECORDS SUMMARY | 2025-06-08 18:16 | XMS_ITS | Encounter Summary ---
Author Organization [facility] Address [address] [place] [address] Care Team Providers Care Patient Access Representative Name Role Phone Shima Tavarez Primary Care Provider +1 [phone] Encounter Details Date Type Department Care Team (Late st Contact Info) Description 11/10/2005 Emergency [facility] Heydi Miguel MD NO ADDRESS ON FILE Er, Authorized P NO ADDRESS ON FILE Unspecified Asthma (Primary Dx) Social History Tobacco Use Types Packs/Day Years Used Date Smoking Tobacco: Never Assessed Comments Unknown Sex and Gender Information Value Date Recorded Sex Assigned at Female 04/12/2024 1:48 AM CDT Legal Sex Female 4:34 AM CLINICAL STAFF RN Gender Identity Female 04/12/2024 1:48 AM CDT Sexual Orientation Not on file documented as of this encounter Plan of Treatment Not on file documented as of this encounter Visit Diagnoses Diagnosis Unspecified asthma(493.90)- Primary Unspecified asthma documented in this encounter Care Teams Patient Access Representative Relationship Specialty Start Date End Date Shima Tavarez FNP [address] [place] [phone] PCP - General 12/28/20 documented as of this encounter
--- OUTSIDE RECORDS SUMMARY | 2025-06-08 18:16 | XMS_ITS | Encounter Summary ---
Author Organization [facility] Address [address] [place] [address] Care Team Providers Care Client Sales And Service Officer Name Role Phone Shima Tavarez Primary Care Provider [phone] [phone] Encounter Details Date Type Department Care Team (Late st Contact Info) Description 09/26/[address] [facility] Family Medicine Danita Yoshi [address] [facility] [address] [place] [address] [place] [address] [address] [facility] [address] [place] [address] Social History Tobacco Use Types Packs/Day Years Used Date Smoking Tobacco: Never Assessed Comments Unknown Sex and Gender Information Value Date Recorded Sex Assigned at Female 04/12/2024 1:48 AM CDT Legal Sex Female 4:34 AM PRESS OPERATOR CAR[employer]ON BLOCKS Gender Identity Female 04/12/2024 1:48 AM CDT Sexual Orientation Not on file documented as of this encounter Last Filed Vital Signs Vital Sign Reading Time Taken Comments Blood Pressure 120/80 09/26/2006 2:15 PM PRESS OPERATOR [employer] Pulse 74 09/26/2006 2:15 PM PRESS OPERATOR [employer] Temperature - - Respiratory Rate - - Oxygen Saturation - - Inhaled Oxygen Concentration - - Weight 73.5 kg (162 lb) 09/26/2006 2:15 PM PRESS OPERATOR [employer] Height - - Body Mass Index - - documented in this encounter Plan of Treatment Not on file documented as of this encounter Visit Diagnoses Not on filedocumented in this encounter Care Teams Client Sales And Service Officer Relationship Specialty Start Date End Date Shima Tavarez FNP [address] [place] [phone] PCP - General 12/28/20 documented as of this encounter
--- OUTSIDE RECORDS SUMMARY | 2025-06-08 18:16 | XMS_ITS | Encounter Summary ---
Author Organization [facility] Address [address] [place] [address] Care Team Providers Care Shoemaking Finisher Name Role Phone Shima Tavarez Primary Care Provider [phone] [phone] Encounter Details Date Type Department Care Team (Late st Contact Info) Description 10/08/2004 Outpatient Historical [facility] Family Medicine [facility] [address] [facility] [address] [place] [address] [place] [address] [place] [address] Social History Tobacco Use Types Packs/Day Years Used Date Smoking Tobacco: Never Assessed Comments Unknown Sex and Gender Information Value Date Recorded Sex Assigned at Female 04/12/2024 1:48 AM CDT Legal Sex Female 4:34 AM REAL ESTATE SUBAGENT Gender Identity Female 04/12/2024 1:48 AM CDT Sexual Orientation Not on file documented as of this encounter Last Filed Vital Signs Vital Sign Reading Time Taken Comments Blood Pressure 100/70 10/08/2004 11:00 AM REAL ESTATE SUBAGENT Pulse 86 10/08/2004 11:00 AM REAL ESTATE SUBAGENT Temperature 36.1 C (96.9 F) 10/08/2004 11:00 AM REAL ESTATE SUBAGENT Respiratory Rate - - Oxygen Saturation - - Inhaled Oxygen Concentration - - Weight 59 kg (130 lb) 10/08/2004 11:00 AM REAL ESTATE SUBAGENT Height - - Body Mass Index - - documented in this encounter Plan of Treatment Not on file documented as of this encounter Visit Diagnoses Not on filedocumented in this encounter Care Teams Shoemaking Finisher Relationship Specialty Start Date End Date Shima Tavarez FNP [address] [place] [phone] PCP - General 12/28/20 documented as of this encounter
--- OUTSIDE RECORDS SUMMARY | 2025-06-08 18:16 | XMS_ITS | Encounter Summary ---
Author Organization [facility] Address [address] [place] [address] Care Team Providers Care Meat Scrubber Name Role Phone Shima Tavarez Dena FAUSTIN Primary Care Provider +1 [phone] Encounter Details Date Type Department Care Team (Late st Contact Info) Description 05/30/2005 Emergency [facility] Mitra Lafleur NP [address] [place] [id number] Er, Authorized P NO ADDRESS ON FILE CONTUSION ABDOMINAL WALL (Primary Dx) Social History Tobacco Use Types Packs/Day Years Used Date Smoking Tobacco: Never Assessed Comments Unknown Sex and Gender Information Value Date Recorded Sex Assigned at Female 04/12/2024 1:48 AM CDT Legal Sex Female 4:34 AM MAILROOM COORDINATOR Gender Identity Female 04/12/2024 1:48 AM CDT Sexual Orientation Not on file documented as of this encounter Plan of Treatment Not on file documented as of this encounter Procedures Procedure Name Priority Date/Time Associated Diagnosis Comments CBC WITH DIFFERENTIAL Routine 05/30/2005 1:37 PM MAILROOM COORDINATOR CBC WITH DIFFERENTIAL Routine 05/30/2005 1:37 PM MAILROOM COORDINATOR documented in this encounter Results * CBC WITH DIFFERENTIAL (05/30/2005 1:37 PM MAILROOM COORDINATOR) NEUTROPHILS 57 36 - 74 % INTERFAC E SYSTEM LYMPHOCYTES 30 18 - 53 % INTERFAC E SYSTEM MONOCYTES 10 2 - 13 % INTERFACE SYSTEM EOSINOPHILS 3 2 - 12 % INTERFAC E SYSTEM BASOPHILS 0 0 - 3 % INTERFACE SYSTEM NEUTROPHIL ABSOLUTE 3.64 K/uL INTERFACE SYSTEM LYMPHOCYTE ABSOLUTE 1.92 K/uL INTERFACE SYSTEM MONOCYTE ABSOLUTE 0.63 K/uL INTERFACE SYSTEM EOSINOPHIL ABSOLUTE 0.19 K/uL INTERFACE SYSTEM BASOPHILS ABSOLUTE 0.02 K/uL INTERFACE SYSTEM 05/30/2005 1:37 PM MAILROOM COORDINATOR Mitra Lafleur FACILITIES DIRECTOR HEMATOLOGY ORDERABLES Final R esult INTERFACE SYSTEM Refer to clinic/hospital department * (ABNORMAL) CBC WITH DIFFERENTIAL (05/30/2005 1:37 PM MAILROOM COORDINATOR) WBC 6.4 4.0 - 9.8 K/uL INTERFACE SYSTEM RBC 4.96(H) 3.90 - 4.90 M/uL INTERFACE SYSTEM HEMOGLOBIN 12.4 11.8 - 14.8 g/dL INTERFACE SYSTEM HEMATOCRIT 38.3 35.5 - 44.0 % INTERFACE SYSTEM MCV 77.2(L) 82.0 - 99.0 fL INTERFACE SYSTEM MCH 25.0(L) 27.2 - 32.6 pg INTERFACE SYSTEM MCHC 32.4 31.5 - 35.5 % INTERFACE SYSTEM RDW 14.6(H) 11.5 - 14.5 % INTERFACE SYSTEM RDW-STDEV 41.5 37.1 - 48.7 fL INTERFACE SYSTEM PLATELETS 321 140 - 350 K/uL INTERFACE SYSTEM MPV 10.5 9.3 - 12.4 fL INTERFACE SYSTEM 05/30/2005 1:37 PM MAILROOM COORDINATOR Mitra Lafleur FACILITIES DIRECTOR HEMATOLOGY ORDERABLES Final R esult INTERFACE SYSTEM Refer to clinic/hospital department documented in this encounter Visit Diagnoses Diagnosis Contusion of abdominal wall- Primary documented in this encounter Care Teams Meat Scrubber Relationship Specialty Start Date End Date Shima Tavarez FNP [address] [place] [phone] PCP - General 12/28/20 documented as of this encounter
--- OUTSIDE RECORDS SUMMARY | 2025-06-08 18:16 | XMS_ITS | Encounter Summary ---
Author Organization [facility] Address [address] Attn: [place] [address] Care Team Providers Care Stator Winder Name Role Phone Shima Tavarez SAMPLE FINISHER Primary Care Provider +1 [phone] Encounter Details Date Type Department Care Team (Latest Contact Info) Description 11/04/2005 Orders Only Thalia Rendon MD [address] [place] [address] Social History Tobacco Use Types Packs/Day Years Used Date Smoking Tobacco: Never Assessed Comments Unknown Sex and Gender Information Value Date Recorded Sex Assigned at Female 04/12/2024 1:48 AM CDT 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 WEIGHT: 104lbs CHIEF COMPLAINT: ear pain This information was actually from Janie's sister Mirta who was an add on. vr This should be deleted. There is a full note for her. vr * [facility] Transcriptions - 05/09/2008 12:37 AM CDT NURSE NAME: JalenRenan H VITALS: RESPIRATIONS: 14. WEIGHT: 136lbs TEMP: 97.2??f Oral ACCOMPANIED BY: Mother. HISTORY PROVIDED BY: The patient (others present), Mother. CHIEF COMPLAINT: knee pain/ quest/ est HISTORY: Janie is a 15 yo who is here complaining of right sided knee pain for 3 days. She reports the pain is a sharp pain, located mostly over the top of the patella and on the inside aspect of the knee. Pt is a self proclaimed couch potato . Pt had an injury to her right knee cap a year or so ago. +pain- especially with stairs (down > up) squatting and standing up. +Popping, rare givingout-but no falling, -locking, -swelling. Pt reports her greatest concern with her knee occurs when she has been sitting on the couch for a long time. When she gets up, both knees are painful, R>L.Has taken some tylenol for a fever she has been having, but does not bring any relief to the pain. Patient also reports a 3 day h/o sore throat and subject fever and chills. Has no ear ache, head ache, facial pain, cough, nasal congestion. Pt has a number of friends who have documented strep. Tylenol has been helping with the fever and the sore throat pain. REVIEW OF SYSTEMS: GENERAL: Appears to have normal activity, no change in appetite, HAS A FEVER. EARS/NOSE/MOUTH/THROAT: APPEARS TO HAVE DYSPHAGIA, APPEARS TO HAVE A SORE THROAT, no significant nasal congestion, see HISTORY OF PRESENT ILLNESS, no tinnitus, hearing loss, infections, drainage,or ear pain. RESPIRATORY: No cough. CARDIAC: No chest pain or cyanosis. MUSCULOSKELETAL: See HISTORY OF PRESENT ILLNESS. NEUROLOGICAL: No numbness or tingling PHYSICAL EXAM: CONSTITUTIONAL: GENERAL APPEARANCE: Healthy appearing, alert patient, normally nourished, developmentally normal and in no acute distress. EYES: PUPILS: Pupils equal and reactive. EARS, NOSE, MOUTH AND THROAT: EARS: Tympanic membranes shiny without retraction. Canals unremarkable. NOSE (AND SINUS): No abnormality of the nose or sinuses is noted. ORAL: OROPHARYNX ERYTHEMATOUS, the tonsils are not enlarged, the tonsils are not erythematous. Adequate diameter of the posterior pharynx for air passage. NECK: +L LAD single, mobile, tender in the upper anterior cervical chain RESPIRATORY: Normal respiratory effort, normal to auscultation. CARDIOVASCULAR: CARDIAC: Regular rhythm with no murmurs, rubs, gallops, or abnormal heart sounds. MUSCULOSKELETAL EXAM: R knee with no visible swelling, effusion, bruising, or redness. No patellar tendon tenderness, no patellar laxity, tenderness to palpation above the patella and in the medial joint line. No lateral or posterior joint line tenderness. Minimal crepitus without tenderness. - ante rior/posterior drawer, - Lachmans, -Taqueria, - Appley grind, some discomfort with varus stress, none with valgus stress. Quads are symmetrically weak, hamstring flexibility limited. OFFICE PROCEDURES: RAPID STREP: The rapid strep test done in the office was negative. ASSESSMENT/PLAN: 719.46-PAIN JOINT KNEE ASSESSMENT: Suspect patellofemoral syndrome. Encouraged patient to get more active- Taught her quadstrengthening exercises using the [address] yellow pages (stand with one foot on the book-extend and flex 10 times on each side-do 3 sets of 10 3x per day. Taught passive hamstring stretch to be done3x a day as well. Should walk 20-30 minutes 4-5 x per week. Should not limit activity because of the discomfort. MEDICATIONS: IBUPROFEN ORAL TABLET 600 MG TABLETS, one tablet three times a day for a week, then as needed for pain, 100 Dispensed, status: NEW PRESCRIPTION, 11/04/2005. PATIENT EDUCATION: Patient given information sheet on musculoskeletal problems. Dr. Fam's knee exercise sheet 462-PHARYNGITIS ASSESSMENT: History and exam suspicious for strep. Rapid strep negative. Will treat symptomaticallywith NSAID and salt water gargle till culture results available. LAB ORDERS: Order number: [id number] Test Ordered: STREPTOCOCCUS, GROUP A CULTURE 4485 Order number: [id number] Test Ordered: RAPID STREP [id number] RETURN VISIT: Instructed to call if not improving. 11/05/05 01:03 p Electronically signed by Thalia Rendon MD. TEACHING PHYSICIAN COMMENTS: I have reviewed the resident's note and I agree with the resident's evaluation and plan.JJD Electronically Signed by: Haile Hernández MD on Tuesday, November 15, 2005 documented in this encounter Plan of Treatment Not on file documented as of this encounter Visit Diagnoses Not on filedocumented in this encounter Care Teams Stator Winder Relationship Specialty Start Date End Date Shima Tavarez FNP [address] [place] [address] PCP - General 12/28/20 documented as of this encounter
--- OUTSIDE RECORDS SUMMARY | 2025-06-08 18:16 | XMS_ITS | Encounter Summary ---
Author Organization [facility] Address [address] [place] [address] Care Team Providers Care Manager Video Name Role Phone Shima Tavarez Primary Care Provider +1 [phone] Encounter Details Date Type Department Care Team (Late st Contact Info) Description 11/01/2004 Outpatient Historical [facility] Medicine [facility] [address] [place] [address] Joe Myers Social History Tobacco Use Types Packs/Day Years Used Date Smoking Tobacco: Never Assessed Comments Unknown Sex and Gender Information Value Date Recorded Sex Assigned at Female 04/12/2024 1:48 AM CDT 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 Gender Identity Female 04/12/2024 1:48 AM CDT Sexual Orientation Not on file documented as of this encounter Last Filed Vital Signs Vital Sign Reading Time Taken Comments Blood Pressure 108/76 11/01/2004 9:45 AM CDT Pulse 64 11/01/2004 9:45 AM CDT Temperature - - Respiratory Rate - - Oxygen Saturation - - Inhaled Oxygen Concentration - - Weight 59.4 kg (131 lb) 11/01/2004 9:45 AM CDT Height - - Body Mass Index - - documented in this encounter Plan of Treatment Not on file documented as of this encounter Visit Diagnoses Not on filedocumented in this encounter Care Teams Manager Video Relationship Specialty Start Date End Date Shima Tavarez FNP [address] [place] [phone] PCP - General 12/28/20 documented as of this encounter
--- OUTSIDE RECORDS SUMMARY | 2025-06-08 18:16 | XMS_ITS | Encounter Summary ---
Author Organization [facility] Address 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 Gender Identity Female 04/12/2024 1:48 AM CDT Sexual Orientation Not on file documented as of this encounter Plan of Treatment Not on file documented as of this encounter Procedures Procedure Name Priority Date/Time Associated Diagnosis Comments XR CHEST PA AND LATERAL 2 VW Routine 08/14/2008 1:55 AM HANDLE FINISHER documented in this encounter Results * XR CHEST PA AND LATERAL (08/14/2008 1:55 AM HANDLE FINISHER) Anatomical Region Laterality Modality Chest Other 08/14/2008 1:55 AM HANDLE FINISHER Narrative 08/14/2008 8:18 AM HANDLE FINISHER [facility] [address] [place], [place] [address] Admit Date: 08/14/2008 JUNIOR DUNLAP Sex: F Admit Prov: ER, AUTHORIZED P Date: 1990 Primary Care Prov: SHEELA PLEITEZ CMRN: [id number] Room: [facility] SSN: [address] [place] [address] IMAGING SERVICES Ordering Prov: N/A Accession Number: [id number] Interpretation Examination: Chest 2 views Clinical History: Shortness of breath. Findings: The silhouettes of the heart, lungs, mediastinum, pleura and bony thorax are within normal limits. There is no infiltration. Impression: Negative. . Dictated by: Abhinav SEPULVEDA 08/14/2008 08:17 Electronically signed by: Abhinav SEPULVEDA 08/14/2008 08:17 Procedure Note Shahzad Sepulveda MD - 08/14/[address] [address] Admit Date: 08/14/2008 JUNIOR DUNLAP Sex: F Admit Prov: ER, AUTHORIZED P Date: 1990 Primary Care Prov: SHEELA PLEITEZ CMRN: [id number] Room: [facility] SSN: [address] [place] [address] IMAGING SERVICES Ordering Prov: N/A Interpretation Examination: Chest 2 views Clinical History: Shortness of breath. Findings: The silhouettes of the heart, lungs, mediastinum, pleuraand bony thorax are within normal limits. There is no infiltration. Impression: Negative. . Dictated by: Abhinav SEPULVEDA 08/14/2008 08:17 Electronically signed by: Abhinav SEPULVEDA 08/14/2008 08:17 Authorized P Er DIAGNOSTIC IMAGING ORDERABLES Fi nal Result documented in this encounter Visit Diagnoses Not on filedocumented in this encounter Care Teams Nail Feeder Relationship Specialty Start Date End Date Shima Tavarez FNP [address] [place] [phone] PCP - General 12/28/20 documented as of this encounter
--- OUTSIDE RECORDS SUMMARY | 2025-06-08 18:16 | XMS_ITS | Encounter Summary ---
Author Organization [email or web address] Address 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 Gender Identity Female 04/12/2024 1:48 AM CDT Sexual Orientation Not on file documented as of this encounter Plan of Treatment Not on file documented as of this encounter Procedures Procedure Name Priority Date/Time Associated Diagnosis Comments CBC WITH DIFFERENTIAL Routine 11/09/2004 9:39 PM CDT CBC WITH DIFFERENTIAL Routine 11/09/2004 9:39 PM CDT CBC WITH DIFFERENTIAL Routine 11/09/2004 9:39 PM CDT HCG QUANTITATIVE, BLOOD Routine 11/09/2004 9:39 PM CDT documented in this encounter Results * HCG QUANTITATIVE, BLOOD (11/09/2004 9:39 PM CDT) HCG QUANT, BLOOD <5 0 [...] Before making a diagnosis of malignancy or ectopic ,the result of thi s test should be confirmed with a urine HCG test and correlated with other clinical evidence. Results called to remy at 11/09/2004 10:48 PM and read back verified. 11/09/2004 9:39 PM CDT us Jose Armando Grant MD CHEMISTRY ORDERABLES F inal Result INTERFACE SYSTEM Refer to clinic/hospital department * (ABNORMAL) CBC WITH DIFFERENTIAL (11/09/2004 9:39 PM CDT) NEUTROPHIL ABSOLUTE 4.00 K/uL INTERFACE SYSTEM LYMPHOCYTE ABSOLUTE 2.93 K/uL INTERFACE SYSTEM MONOCYTE ABSOLUTE 0.39 K/uL INTERFACE SYSTEM EOSINOPHIL ABSOLUTE 0.39 K/uL INTERFACE SYSTEM BASOPHILS ABSOLUTE 0.00 K/uL INTERFACE SYSTEM NEUTROPHILS, SEG 52 36 - 74 % INT ERFACE SYSTEM LYMPHOCYTES 37 18 - 53 % INTERFAC E SYSTEM MONOCYTES 5 2 - 13 % INTERFACE SYSTEM EOSINOPHILS 5 2 - 12 % INTERFAC E SYSTEM BASOPHILS 0 0 - 3 % INTERFACE SYSTEM ATYPICAL LYMPHOCYTE 1 0 - 5 % INTERFACE SYSTEM PLATELET EST. Slt. Increased( A) Normal INTERFACE SYSTEM ANISOCYTOSIS Slight INTERFA CE SYSTEM 11/09/2004 9:39 PM CDT Result [facility] Jose Armando Grant MD HEMATOLOGY ORDERABLES Final Result Performing Organization Address [facility] de Phone Number INTERFACE SYSTEM Refer to clinic/hospital department * CBC WITH DIFFERENTIAL (11/09/2004 9:39 PM CDT) NRBC 0 <=0 /100 WBC INTERFACE SYSTEM 11/09/2004 9:39 PM CDT Jose Armando Grant MD HEMATOLOGY ORDERABLES Final Result Performing Organization Address [facility] Phone Number INTERFACE SYSTEM Refer to clinic/hospital department * (ABNORMAL) CBC WITH DIFFERENTIAL (11/09/2004 9:39 PM CDT) WBC 7.7 4.0 - 9.8 K/uL INTERFACE SYSTEM RBC 4.67 3.90 - 4.90 M/uL INTERFACE SYSTEM HEMOGLOBIN 11.3(L) 11.8 - 14.8 g/dL INTERFACE SYSTEM HEMATOCRIT 37.0 35.5 - 44.0 % INTERFACE SYSTEM MCV 79.2(L) 82.0 - 99.0 fL INTERFACE SYSTEM MCH 24.2(L) 27.2 - 32.6 pg INTERFACE SYSTEM MCHC 30.5(L) 31.5 - 35.5 % INTERFACE SYSTEM RDW 14.9(H) 11.5 - 14.5 % INTERFACE SYSTEM RDW-STDEV 42.8 37.1 - 48.7 fL INTERFACE SYSTEM PLATELETS 382(H) 140 - 350 K/uL INTERFACE SYSTEM MPV 10.0 9.3 - 12.4 fL INTERFACE SYSTEM 11/09/2004 9:39 PM CDT Result [facility] Jose Armando Grant MD HEMATOLOGY ORDERABLES Final Result Performing Organization Address [facility] de Phone Number INTERFACE SYSTEM Refer to clinic/hospital department documented in this encounter Visit Diagnoses Diagnosis Unspecified symptom associated with female genital organs- Primary documented in this encounter Care Teams Booth Cashier Relationship Specialty Start Date End Date Shima Tavarez FNP [address] [place] [phone] PCP - General 12/28/20 documented as of this encounter
--- OUTSIDE RECORDS SUMMARY | 2025-06-08 18:16 | XMS_ITS | Encounter Summary ---
Author Organization [facility] Address [address] [place] [address] Care Team Providers Care Web Services Architect Name Role Phone Shima Tavarez Primary Care Provider +1 [phone] Encounter Details Date Type Department Care Team (Late st Contact Info) Description 12/20/2005 Emergency [facility] Holly De Jesus MD NO ADDRESS ON FILE Er, Authorized P NO ADDRESS ON FILE Abdominal Pain, Right Upper Quadrant (Primary Dx) Social History Tobacco Use Types Packs/Day Years Used Date Smoking Tobacco: Never Assessed Comments Unknown Sex and Gender Information Value Date Recorded Sex Assigned at Female 04/12/2024 1:48 AM CDT 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
--- OUTSIDE RECORDS SUMMARY | 2025-06-08 18:16 | XMS_ITS | Encounter Summary ---
Author Organization [facility] Address [address] [place] [address] Care Team Providers Care Sheriff'S Officer Name Role Phone Shima Tavarez Primary Care Provider +1 [phone] Encounter Details Date Type Department Care Team (Late st Contact Info) Description 11/04/2005 Outpatient Historical [facility] Family Medicine [facility] [address] [place] [address] [place] [address] [place] [address] Social History Tobacco Use Types Packs/Day Years Used Date Smoking Tobacco: Never Assessed Comments Unknown Sex and Gender Information Value Date Recorded Sex Assigned at Female 04/12/2024 1:48 AM CDT 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
--- OUTSIDE RECORDS SUMMARY | 2025-06-08 18:16 | XMS_ITS | Encounter Summary ---
Author Organization [facility] Address [address] [place] [address] Care Team Providers Care Chore Worker Name Role Phone Shima Tavarez Dena FAUSTIN Primary Care Provider +1 [phone] Encounter Details Date Type Department Care Team (Late st Contact Info) Description 09/22/2004 Outpatient Historical [facility] Family Medicine [facility] [address] [place] [address] [place] [address] [place] [address] Social History Tobacco Use Types Packs/Day Years Used Date Smoking Tobacco: Never Assessed Comments Unknown Sex and Gender Information Value Date Recorded Sex Assigned at Female 04/12/2024 1:48 AM CDT 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 Gender Identity Female 04/12/2024 1:48 AM CDT Sexual Orientation Not on file documented as of this encounter Last Filed Vital Signs Vital Sign Reading Time Taken Comments Blood Pressure 116/70 09/22/2004 1:50 PM [employer] Pulse 80 09/22/2004 1:50 PM [employer] Temperature - - Respiratory Rate - - Oxygen Saturation - - Inhaled Oxygen Concentration - - Weight 57.6 kg (127 lb) 09/22/2004 1:50 PM [employer] Height 161.3 cm (5' 3.5 ) 09/22/2004 1:50 PM [employer] Body Mass Index 22.14 09/22/2004 1:50 PM [employer] Body Mass Index Percentile 78.31% 09/22/2004 1:5 0 PM [employer] Growth Chart: CDC (Girls, 2- 20 Years) documented in this encounter Plan of Treatment Not on file documented as of this encounter Visit Diagnoses Not on filedocumented in this encounter Care Teams Chore Worker Relationship Specialty Start Date End Date Shima Tavarez FNP [address] [place] [phone] PCP - General 12/28/20 documented as of this encounter
--- OUTSIDE RECORDS SUMMARY | 2025-06-08 18:16 | XMS_ITS | Encounter Summary ---
Author Organization [facility] Address [address] [place] [address] Care Team Providers Care Grades 9 12 Tutor Name Role Phone Shima Tavarez Primary Care Provider +1 [phone] Encounter Details Date Type Department Care Team (Late st Contact Info) Description 11/04/2005 Outpatient Historical [facility] Family Medicine [facility] [address] [place] [address] [place] [address] [place] [address] Social History Tobacco Use Types Packs/Day Years Used Date Smoking Tobacco: Never Assessed Comments Unknown Sex and Gender Information Value Date Recorded Sex Assigned at Female 04/12/2024 1:48 AM CDT 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
--- OUTSIDE RECORDS SUMMARY | 2025-06-08 18:16 | XMS_ITS | Encounter Summary ---
Author Organization [facility] Address 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 Gender Identity Female 04/12/2024 1:48 AM CDT Sexual Orientation Not on file documented as of this encounter Plan of Treatment Not on file documented as of this encounter Procedures Procedure Name Priority Date/Time Associated Diagnosis Comments CBC WITH DIFFERENTIAL Routine 08/07/2005 1:45 PM ANTIQUE CLOCKS REPAIRER CBC WITH DIFFERENTIAL Routine 08/07/2005 1:45 PM ANTIQUE CLOCKS REPAIRER HCG QUANTITATIVE, BLOOD Routine 08/07/2005 1:45 PM ANTIQUE CLOCKS REPAIRER BASIC METABOLIC PANEL Routine 08/07/2005 1:45 PM ANTIQUE CLOCKS REPAIRER documented in this encounter Results * BASIC METABOLIC PANEL (08/07/2005 1:45 PM ANTIQUE CLOCKS REPAIRER) GLUCOSE 97 60 - 110 mg/dL INTERFACE SYSTEM CREATININE 0.7 0.4 - 1.2 mg/dL INTERFACE SYSTEM CALCIUM 8.7 8.4 - 10.2 mg/dL INTERFACE SYSTEM BUN 8 6 - 20 mg/dL INTERFACE SYSTEM SODIUM 139 135 - 145 mmol/L INTERFACE SYSTEM POTASSIUM 4.3 3.5 - 4.9 mmol/L INTERFACE SYSTEM Comment:Slight hemolysis pre sent. Result may be falsely elevated. CHLORIDE 105 96 - 108 mmol/L INTERFACE SYSTEM CO2 23 22 - 30 mmol/L INTERFACE SYSTEM 08/07/2005 1:45 PM ANTIQUE CLOCKS REPAIRER us Dave Tiwari MD CHEMISTRY ORDERABLES Final Res ult INTERFACE SYSTEM Refer to clinic/hospital department * HCG QUANTITATIVE, BLOOD (08/07/2005 1:45 PM ANTIQUE CLOCKS REPAIRER) HCG QUANT, BLOOD <5 0 - 5 [...] test and correlated with other clinical evidence. 08/07/2005 1:45 PM ANTIQUE CLOCKS REPAIRER Historical Provider CHEMISTRY ORDERABLES Final R esult Performing Organization Address City/[facility] de Phone Number INTERFACE SYSTEM Refer to clinic/hospital department * CBC WITH DIFFERENTIAL (08/07/2005 1:45 PM ANTIQUE CLOCKS REPAIRER) NEUTROPHILS 45 36 - 74 % INTERFAC E SYSTEM LYMPHOCYTES 40 18 - 53 % INTERFAC E SYSTEM MONOCYTES 8 2 - 13 % INTERFACE SYSTEM EOSINOPHILS 6 2 - 12 % INTERFAC E SYSTEM BASOPHILS 1 0 - 3 % INTERFACE SYSTEM NEUTROPHIL ABSOLUTE 2.24 K/uL INTERFACE SYSTEM LYMPHOCYTE ABSOLUTE 2.01 K/uL INTERFACE SYSTEM MONOCYTE ABSOLUTE 0.39 K/uL INTERFACE SYSTEM EOSINOPHIL ABSOLUTE 0.30 K/uL INTERFACE SYSTEM BASOPHILS ABSOLUTE 0.04 K/uL INTERFACE SYSTEM 08/07/2005 1:45 PM ANTIQUE CLOCKS REPAIRER Historical Provider HEMATOLOGY ORDERABLES Final Result Performing Organization Address [facility] Phone Number INTERFACE SYSTEM Refer to clinic/hospital department * (ABNORMAL) CBC WITH DIFFERENTIAL (08/07/2005 1:45 PM ANTIQUE CLOCKS REPAIRER) WBC 5.0 4.0 - 9.8 K/uL INTERFACE SYSTEM RBC 4.89 3.90 - 4.90 M/uL INTERFACE SYSTEM HEMOGLOBIN 12.4 11.8 - 14.8 g/dL INTERFACE SYSTEM HEMATOCRIT 38.6 35.5 - 44.0 % INTERFACE SYSTEM MCV 78.9(L) 82.0 - 99.0 fL INTERFACE SYSTEM MCH 25.4(L) 27.2 - 32.6 pg INTERFACE SYSTEM MCHC 32.1 31.5 - 35.5 % INTERFACE SYSTEM RDW 15.3(H) 11.5 - 14.5 % INTERFACE SYSTEM RDW-STDEV 44.6 37.1 - 48.7 fL INTERFACE SYSTEM PLATELETS 314 140 - 350 K/uL INTERFACE SYSTEM MPV 10.5 9.3 - 12.4 fL INTERFACE SYSTEM 08/07/2005 1:45 PM ANTIQUE CLOCKS REPAIRER Historical Provider HEMATOLOGY ORDERABLES Final Result Performing Organization Address City/[facility] de Phone Number INTERFACE SYSTEM Refer to clinic/hospital department documented in this encounter Visit Diagnoses Diagnosis Other disorder of menstruation and other abnormal bleeding from female genital tract- Primary documented in this encounter Care Teams Deli Associate Relationship Specialty Start Date End Date Shima Tavarez FNP [address] [place] [address] PCP - General 12/28/20 documented as of this encounter
--- OUTSIDE RECORDS SUMMARY | 2025-06-08 18:16 | XMS_ITS | Encounter Summary ---
Author Organization [facility] Address [address] [place] [address] Care Team Providers Care Health Coordinator Name Role Phone Shima Tavarez Dena FAUSTIN Primary Care Provider [phone] [phone] Encounter Details Date Type Department Care Team (Late st Contact Info) Description 10/15/2004 Outpatient Historical [facility] Family Medicine [facility] [address] [facility] [address] [place] [address] JhonyPeyton Flores MD [address] [place] [address] Social History Tobacco Use Types Packs/Day Years Used Date Smoking Tobacco: Never Assessed Comments Unknown Sex and Gender Information Value Date Recorded Sex Assigned at Female 04/12/2024 1:48 AM CDT Legal Sex Female 4:34 AM DATA PROCESSING SUPERVISOR Gender Identity Female 04/12/2024 1:48 AM CDT Sexual Orientation Not on file documented as of this encounter Last Filed Vital Signs Vital Sign Reading Time Taken Comments Blood Pressure 112/78 10/15/2004 4:10 PM DATA PROCESSING SUPERVISOR Pulse 90 10/15/2004 4:10 PM DATA PROCESSING SUPERVISOR Temperature 37.4 C (99.3 F) 10/15/2004 4:10 PM DATA PROCESSING SUPERVISOR Respiratory Rate 18 10/15/2004 4:10 PM DATA PROCESSING SUPERVISOR Oxygen Saturation - - Inhaled Oxygen Concentration - - Weight 58.5 kg (129 lb) 10/15/2004 4:10 PM DATA PROCESSING SUPERVISOR Height 161.3 cm (5' 3.5 ) 10/15/2004 4:10 PM DATA PROCESSING SUPERVISOR Body Mass Index 22.49 10/15/2004 4:10 PM DATA PROCESSING SUPERVISOR Body Mass Index Percentile 80.27% 10/15/2004 4:1 0 PM DATA PROCESSING SUPERVISOR Growth Chart: [facility] (Girls, 2- 20 Years) documented in this encounter Plan of Treatment Not on file documented as of this encounter Visit Diagnoses Not on filedocumented in this encounter Care Teams Health Coordinator Relationship Specialty Start Date End Date Shima Tavarez FNP [address] [place] [phone] PCP - General 12/28/20 documented as of this encounter
--- OUTSIDE RECORDS SUMMARY | 2025-06-08 18:17 | XMS_ITS | Encounter Summary ---
Author Organization [facility] Address [address] [place] [address] Care Team Providers Care Form Setter Name Role Phone Shima Tavarez Primary Care Provider +1 [phone] Encounter Details Date Type Department Care Team (Late st Contact Info) Description 10/01/2007 Outpatient Historical [facility] Family Medicine [address] [address] [place] [address] [place] [address] [place] [address] Social History Tobacco Use Types Packs/Day Years Used Date Smoking Tobacco: Never Assessed Comments Unknown Sex and Gender Information Value Date Recorded Sex Assigned at Female 04/12/2024 1:48 AM CDT Legal Sex Female 4:34 AM EXECUTIVE TEAM LEADER Gender Identity Female 04/12/2024 1:48 AM CDT Sexual Orientation Not on file documented as of this encounter Plan of Treatment Not on file documented as of this encounter Visit Diagnoses Not on filedocumented in this encounter Care Teams Form Setter Relationship Specialty Start Date End Date Shima Tavarez FNP [address] [place] [address] PCP - General 12/28/20 documented as of this encounter
--- OUTSIDE RECORDS SUMMARY | 2025-06-08 18:17 | XMS_ITS | Encounter Summary ---
Author Organization [facility] Address [address] [place] [address] Care Team Providers Care Fiberglass Autobody Repairer Name Role Phone Shima Tavarez Primary Care Provider +1 [phone] Encounter Details Date Type Department Care Team (Late st Contact Info) Description 08/26/2004 Emergency [facility] Heydi Miguel MD NO ADDRESS ON FILE Er, Authorized P NO ADDRESS ON FILE ASTHMA UNSPECIFIED WITH EXAC (Primary Dx) Social History Tobacco Use Types Packs/Day Years Used Date Smoking Tobacco: Never Assessed Comments Unknown Sex and Gender Information Value Date Recorded Sex Assigned at Female 04/12/2024 1:48 AM CDT Legal Sex Female 4:34 AM PRESIDENT CELEBRITY ACQUISTION Gender Identity Female 04/12/2024 1:48 AM CDT Sexual Orientation Not on file documented as of this encounter Plan of Treatment Not on file documented as of this encounter Visit Diagnoses Diagnosis Unspecified asthma, with exacerbation- Primary documented in this encounter Care Teams Fiberglass Autobody Repairer Relationship Specialty Start Date End Date Shima Tavarez FNP [address] [place] [phone] PCP - General 12/28/20 documented as of this encounter
--- OUTSIDE RECORDS SUMMARY | 2025-06-08 18:17 | XMS_ITS | Encounter Summary ---
Author Organization [facility] Address [address] [place] [address] Care Team Providers Care Animal Handler Name Role Phone Shima Tavarez Primary Care Provider +1 [phone] Encounter Details Date Type Department Care Team (Late st Contact Info) Description 10/01/2007 Outpatient Historical [facility] Family Medicine [place] [address] [place] [address] [place] [address] [place] [address] Social History Tobacco Use Types Packs/Day Years Used Date Smoking Tobacco: Never Assessed Comments Unknown Sex and Gender Information Value Date Recorded Sex Assigned at Female 04/12/2024 1:48 AM CDT Legal Sex Female 4:34 AM SUBSTATION SUPERVISOR Gender Identity Female 04/12/2024 1:48 AM CDT Sexual Orientation Not on file documented as of this encounter Plan of Treatment Not on file documented as of this encounter Visit Diagnoses Not on filedocumented in this encounter Care Teams Animal Handler Relationship Specialty Start Date End Date Shima Tavarez FNP [address] [place] [address] PCP - General 12/28/20 documented as of this encounter
--- OUTSIDE RECORDS SUMMARY | 2025-06-08 18:17 | XMS_ITS | Encounter Summary ---
Author Organization [facility] Address [address] [place] [address] Care Team Providers Care Box Blank Machine Operator Helper Name Role Phone Shima Tavarez Primary Care Provider +1 -[phone] Encounter Details Date Type Department Care Team (Late st Contact Info) Description 08/31/2004 Emergency [facility] Karel Hernandez MD NO ADDRESS ON FILE Er, Authorized P NO ADDRESS ON FILE ASTHMA UNSPECIFIED (Primary Dx) Social History Tobacco Use Types Packs/Day Years Used Date Smoking Tobacco: Never Assessed Comments Unknown Sex and Gender Information Value Date Recorded Sex Assigned at Female 04/12/2024 1:48 AM CDT Legal Sex Female 4:34 AM 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
--- OUTSIDE RECORDS SUMMARY | 2025-06-08 18:17 | XMS_ITS | Encounter Summary ---
Author Organization [facility] Address [address] [place] [address] Care Team Providers Care Court Advocate Name Role Phone Shima Tavarez Primary Care Provider +1 -[phone] Encounter Details Date Type Department Care Team (Late st Contact Info) Description 11/28/2007 Orders Only [facility] Family Medicine [place] [address] [place] [address] [place] [address] [place] [address] Social History Tobacco Use Types Packs/Day Years Used Date Smoking Tobacco: Never Assessed Comments Unknown Sex and Gender Information Value Date Recorded Sex Assigned at Female 04/12/2024 1:48 AM CDT Legal Sex Female 4:34 AM WAREHOUSE INCENTIVE SELECTOR Gender Identity Female 04/12/2024 1:48 AM CDT Sexual Orientation Not on file documented as of this encounter Plan of Treatment Not on file documented as of this encounter Visit Diagnoses Not on filedocumented in this encounter Care Teams Court Advocate Relationship Specialty Start Date End Date Shima Tavarez FNP [address] [place] [address] PCP - General 12/28/20 documented as of this encounter
--- OUTSIDE RECORDS SUMMARY | 2025-06-08 18:17 | XMS_ITS | Encounter Summary ---
Author Organization [facility] Address [address] [place] [address] Care Team Providers Care Woodwinds Teacher Name Role Phone Shima Tavarez Primary Care Provider +1 -[phone] Encounter Details Date Type Department Care Team (Late st Contact Info) Description 09/27/2007 Outpatient Historical [facility] Family Medicine [place] [address] [place] [address] [place] [address] [place] [address] Social History Tobacco Use Types Packs/Day Years Used Date Smoking Tobacco: Never Assessed Comments Unknown Sex and Gender Information Value Date Recorded Sex Assigned at Female 04/12/2024 1:48 AM CDT Legal Sex Female 4:34 AM ORTHOPEDIC CAST SPECIALIST Gender Identity Female 04/12/2024 1:48 AM CDT Sexual Orientation Not on file documented as of this encounter Plan of Treatment Not on file documented as of this encounter Visit Diagnoses Not on filedocumented in this encounter Care Teams Woodwinds Teacher Relationship Specialty Start Date End Date Shima Tavarez FNP [address] [place] [address] PCP - General 12/28/20 documented as of this encounter
--- OUTSIDE RECORDS SUMMARY | 2025-06-08 18:17 | XMS_ITS | Encounter Summary ---
Author Organization [facility] Address [address] [place] [address] Care Team Providers Care Building Rigger Name Role Phone Shima Tavarez Primary Care Provider +1 -[phone] Encounter Details Date Type Department Care Team (Late st Contact Info) Description 12/14/2003 Emergency [facility] EM[facility] Angela Johnson MD [address] [facility] [address] [address] Er, Authorized P NO ADDRESS ON FILE ASTHMA UNSPECIFIED (Primary Dx) Social History Tobacco Use Types Packs/Day Years Used Date Smoking Tobacco: Never Assessed Comments Unknown Sex and Gender Information Value Date Recorded Sex Assigned at Female 04/12/2024 1:48 AM CDT Legal Sex Female 4:34 AM ELECTRICITY TRADER Gender Identity Female 04/12/2024 1:48 AM CDT Sexual Orientation Not on file documented as of this encounter Plan of Treatment Not on file documented as of this encounter Visit Diagnoses Diagnosis Unspecified asthma(493.90)- Primary Unspecified asthma documented in this encounter Care Teams Building Rigger Relationship Specialty Start Date End Date Shima Tavarez FNP [address] [place] [phone] PCP - General 12/28/20 documented as of this encounter
--- OUTSIDE RECORDS SUMMARY | 2025-06-08 18:17 | XMS_ITS | Encounter Summary ---
Author Organization [facility] Address [address] [place] [address] Care Team Providers Care Industrial Design Intern Name Role Phone Shima Tavarez Dena LANDSCAPE SPECIALIST Primary Care Provider +1 -[phone] Encounter Details Date Type Department Care Team (Latest Contact Info) Description 10/18/2007 [place]patient [place] [address] [address] Painful Respiration Social History Tobacco Use Types Packs/Day Years Used Date Smoking Tobacco: Never Assessed Comments Unknown Sex and Gender Information Value Date Recorded Sex Assigned at Female 04/12/2024 1:48 AM CDT Legal Sex Female 4:34 AM EDUCATIONAL AIDE Gender Identity Female 04/12/2024 1:48 AM CDT Sexual Orientation Not on file documented as of this encounter Plan of Treatment Not on file documented as of this encounter Procedures Procedure Name Priority Date/Time Associated Diagnosis Comments XR RIBS UNILATERAL RIGHT W PA CHEST Routine 10/18/2007 10:19 AM CDT documented in this encounter Results * XR RIBS UNILATERAL RIGHT W PA CHEST (10/18/2007 10:19 AM CDT) Anatomical Region Laterality Modality Chest Other 10/18/2007 10:1 9 AM CDT Narrative 10/18/2007 10:26 AM CDT [facility] [address], [place] [address] Admit Date: 10/18/2007 JUNIOR DUNLAP Sex: F Admit Prov: HOLLY LOPEZ Date: 1990 Primary Care Prov: SHEELA PLEITEZ CMRN: [id number] Room: [facility] SSN: [address] [place] [address] IMAGING SERVICES Ordering Prov: N/A Accession Number: [id number] Interpretation Examination: Chest with right ribs. 4 views. Clinical History: Pain. Findings: Chest examination fails to demonstrate pleural, pulmonary, or mediastinal abnormality. Heart size is normal. There is no evidence of right rib fracture. Impression: Normal chest with right ribs. . Dictated by: Abhinav SEPULVEDA 10/18/2007 10:25 Electronically signed by: Abhinav SEPULVEDA 10/18/2007 10:26 Procedure Note Provider, Historical - 10/18/[address] [address] Admit Date: 10/18/2007 JUNIOR DUNLAP Sex: F Admit Prov: HOLLY LOPEZ Date: 1990 Primary Care Prov: SHEELA PLEITEZ CMRN: [id number] Room: [facility] SSN: [address] [place] [address] IMAGING SERVICES Ordering Prov: N/A Interpretation Examination: Chest with right ribs. 4 views. Clinical History: Pain. Findings: Chest examination fails to demonstrate pleural, pulmonary,or mediastinal abnormality. Heart size is normal. There is no evidenceof right rib fracture. Impression: Normal chest with right ribs. . Dictated by: Abhinav SEPULVEDA 10/18/2007 10:25 Electronically signed by: Abhinav SEPULVEDA 10/18/2007 10:26 Holly Lopez DO DIAGNOSTIC IMAGING ORDERABLES Fi nal Result documented in this encounter Visit Diagnoses Diagnosis Painful respiration documented in this encounter Care Teams Industrial Design Intern Relationship Specialty Start Date End Date Shima Tavarez FNP [address] [place] [phone] PCP - General 12/28/20 documented as of this encounter
--- OUTSIDE RECORDS SUMMARY | 2025-06-08 18:17 | XMS_ITS | Encounter Summary ---
Author Organization [facility] Address [address] [place] [address] Care Team Providers Care Twisthand Name Role Phone Shima Tavarez Primary Care Provider +1 -[phone] Encounter Details Date Type Department Care Team (Late st Contact Info) Description 07/20/2004 Emergency [facility] Holly De Jesus MD NO ADDRESS ON FILE Er, Authorized P NO ADDRESS ON FILE MIGRAINE NOS W/O MENTN INTRACTABLE (Primary Dx) Social History Tobacco Use Types Packs/Day Years Used Date Smoking Tobacco: Never Assessed Comments Unknown Sex and Gender Information Value Date Recorded Sex Assigned at Female 04/12/2024 1:48 AM CDT Legal Sex Female 4:34 AM SEWER DIGGER Gender Identity Female 04/12/2024 1:48 AM CDT Sexual Orientation Not on file documented as of this encounter Plan of Treatment Not on file documented as of this encounter Visit Diagnoses Diagnosis Migraine, unspecified, without mention of intractable migraine without mention of status migrainosus- Primary documented in this encounter Care Teams Twisthand Relationship Specialty Start Date End Date Shima Tavarez FNP [address] [place] [place] [phone] PCP - General 12/28/20 documented as of this encounter
--- OUTSIDE RECORDS SUMMARY | 2025-06-08 18:17 | XMS_ITS | Encounter Summary ---
Author Organization [facility] Address [address] [place] [address] Care Team Providers Care Learn To Swim Instructor Name Role Phone Shima Tavarez Primary Care Provider +1 -[phone] Encounter Details Date Type Department Care Team (Late st Contact Info) Description 05/27/2004 Emergency [facility] Wilda Georges MD [address] [place] [address] Er, Authorized P NO ADDRESS ON FILE DYSPHAGIA (Primary Dx) Social History Tobacco Use Types Packs/Day Years Used Date Smoking Tobacco: Never Assessed Comments Unknown Sex and Gender Information Value Date Recorded Sex Assigned at Female 04/12/2024 1:48 AM CDT Legal Sex Female 4:34 AM FIELD NURSE CASE MANAGER Gender Identity Female 04/12/2024 1:48 AM CDT Sexual Orientation Not on file documented as of this encounter Plan of Treatment Not on file documented as of this encounter Visit Diagnoses Diagnosis Dysphagia- Primary documented in this encounter Care Teams Learn To Swim Instructor Relationship Specialty Start Date End Date Shima Tavarez FNP [address] [place] [phone] PCP - General 12/28/20 documented as of this encounter
--- OUTSIDE RECORDS SUMMARY | 2025-06-08 18:17 | XMS_ITS | Encounter Summary ---
Author Organization [facility] Address [address] [place] [address] Care Team Providers Care Raw Stock Machine Feeder Name Role Phone Shima Tavarez Dena [facility] Primary Care Provider +1 -[phone] Encounter Details Date Type Department Care Team (Late st Contact Info) Description 10/01/2007 Orders Only [facility] [address] [place] [address] [place] [address] [place] [address] Social History Tobacco Use Types Packs/Day Years Used Date Smoking Tobacco: Never Assessed Comments Unknown Sex and Gender Information Value Date Recorded Sex Assigned at Female 04/12/2024 1:48 AM CDT Legal Sex Female 4:34 AM SOFTWARE APPLICATION TESTER Gender Identity Female 04/12/2024 1:48 AM CDT Sexual Orientation Not on file documented as of this encounter Progress Notes * Holly Wade DO - 01/03/2008 5:15 PM CDT NURSE NAME: Lily Knox A PATIENT'S AGE: 17 yrs, 0 mths, 2 wks, 6 days VITALS: PULSE: 60 Right Radial, Regular WEIGHT: 185lbs B/P: 110/60 Right Arm Sitting ACCOMPANIED BY: Mother. ALLERGIES: Allergies are as listed. CHIEF COMPLAINT: second hpv/popped rib out of place/right side.est.[facility] HISTORY: 724.5-BACK PAIN Seen 2/29/08 for OMT for R upper back and rib pain after URI/cough; states was doing great until last night when had coughing spasm again and developed recurrent R back pain, no rib pain this time, no fever, cough now resolved, no ST, no runny/stuffy nose Requests lab results from 08/07 regarding amenorrhea, still has not had period, never been sexually active, reviewed labs with Mom and Janie, c/w PCOS Requests 2nd HPV REVIEW OF SYSTEMS: ALL NORMAL EXCEPT per hpi PHYSICAL EXAM: CONSTITUTIONAL: GENERAL APPEARANCE: Healthy appearing, alert patient, normally nourished, developmentally normal and in no acute distress. EARS, NOSE, MOUTH AND THROAT: ORAL: Inspection of gums, lips, palate, and dentition normal. No lesions or masses. Oral mucosa unremarkable with non-inflamed posterior pharynx. RESPIRATORY: Clear to auscultation. Normal respiratory effort. CARDIOVASCULAR: CARDIAC: Regular rhythm with no murmurs, rubs, gallops, or abnormal heart sounds. EDEMA/VARICOSITIES OF EXTREMITIES: MUSCULOSKELETAL EXAM: see scanned osteopathic form OFFICE PROCEDURES: INJECTIONS & IMMUNIZATIONS: . HPV, 0.5, MILLILITERS, INTRAMUSCULAR INJECTION, Upper Left Arm, given by gopal on 10/01/2007; consent form signed, literature not given; ASSESSMENT/PLAN: 626.1-OLIGOMENORRHAGIA/HYPOMENORRHIA ASSESSMENT: Likely 2/2 PCOS 724.5-BACK PAIN ASSESSMENT: Rest today, heat, Motrin 800mg TID PRN with food, given and demonstrated handout on HEPfor back strengthening and stretches 739.2-NONALLOPATHIC LESIONS, NOT ELSEWHERE CLASSIFIED LAB ORDERS: Order number: [id number] Test Ordered: OSTEOPATHIC MANIPULATIVE TX, 1-2 BODY REGIONS 60327 V04.89-NEED PROPH VAC&INOCULAT OTH VIRL DZ LAB ORDERS: Order number: [id number] Test Ordered: INJ-VFC GARDASIL [id number] 256.4-OVARIAN DYSFUNCTION ASSESSMENT: Testosterone and insulin elevated, c/w PCOS; discussed use of OCPs vs. metformin; she and Mom elect metformin; we discussed need for contraception when she becomes sexually active as metformin is ovulation inducer MEDICATIONS: METFORMIN HCL ORAL TABLET 500 MG, 1 tab po QD, 30 Dispensed, 6 Fills, status: NEW PRESCRIPTION, 10/01/2007. PATIENT EDUCATION: Risks, benefits, and possible side effects of medication(s) were reviewed with the patient. Questions were allowed to stated satisfaction. RETURN VISIT: f/u with labs 4 months Electronically Signed by: Holly Wade MD on Tuesday, October 02, 2007 documented in this encounter Plan of Treatment Not on file documented as of this encounter Visit Diagnoses Not on filedocumented in this encounter Care Teams Raw Stock Machine Feeder Relationship Specialty Start Date End Date Shima Tavarez FNP [address] [place] [address] PCP - General 12/28/20 documented as of this encounter
--- OUTSIDE RECORDS SUMMARY | 2025-06-08 18:17 | XMS_ITS | Encounter Summary ---
Author Organization [facility] Address [address] [place] [address] Care Team Providers Care Help Desk Supervisor Name Role Phone Shima Tavarez Primary Care Provider +1 [phone] Encounter Details Date Type Department Care Team (Late st Contact Info) Description 09/27/2007 Outpatient Historical [facility] Family Medicine [place] [address] [place] [address] [place] [address] [place] [address] Social History Tobacco Use Types Packs/Day Years Used Date Smoking Tobacco: Never Assessed Comments Unknown Sex and Gender Information Value Date Recorded Sex Assigned at Female 04/12/2024 1:48 AM CDT Legal Sex Female 4:34 AM PUTTIER Gender Identity Female 04/12/2024 1:48 AM CDT Sexual Orientation Not on file documented as of this encounter Plan of Treatment Not on file documented as of this encounter Visit Diagnoses Not on filedocumented in this encounter Care Teams Help Desk Supervisor Relationship Specialty Start Date End Date Shima Tavarez FNP [address] [place] [address] PCP - General 12/28/20 documented as of this encounter
--- OUTSIDE RECORDS SUMMARY | 2025-06-08 18:17 | XMS_ITS | Encounter Summary ---
Author Organization [facility] Address [address] [place] [address] Care Team Providers Care Bar Porter Name Role Phone Shima Tavarez Primary Care Provider +1 [phone] Encounter Details Date Type Department Care Team (Late st Contact Info) Description 03/29/2004 Emergency [facility] Mirta Hyde MD NO ADDRESS ON FILE Er, Authorized P NO ADDRESS ON FILE ACUTE BRONCHITIS (Primary Dx) Social History Tobacco Use Types Packs/Day Years Used Date Smoking Tobacco: Never Assessed Comments Unknown Sex and Gender Information Value Date Recorded Sex Assigned at Female 04/12/2024 1:48 AM CDT Legal Sex Female 4:34 AM AUDITOR TAX Gender Identity Female 04/12/2024 1:48 AM CDT Sexual Orientation Not on file documented as of this encounter Plan of Treatment Not on file documented as of this encounter Visit Diagnoses Diagnosis Acute bronchitis- Primary documented in this encounter Care Teams Bar Porter Relationship Specialty Start Date End Date Shima Tavarez FNP [address] [place] [address] PCP - General 12/28/20 documented as of this encounter
--- OUTSIDE RECORDS SUMMARY | 2025-06-08 18:17 | XMS_ITS | Encounter Summary ---
Author Organization [facility] Address [address] [place] [address] Care Team Providers Care Director Inpatient Headache Program Name Role Phone Shima Tavarez Primary Care Provider +1 [phone] Encounter Details Date Type Department Care Team (Late st Contact Info) Description 10/01/2007 Outpatient Historical [facility] Family Medicine [place] [address] [place] [address] [place] [address] [place] [address] Social History Tobacco Use Types Packs/Day Years Used Date Smoking Tobacco: Never Assessed Comments Unknown Sex and Gender Information Value Date Recorded Sex Assigned at Female 04/12/2024 1:48 AM CDT Legal Sex Female 4:34 AM OPERATIONS AGENT Gender Identity Female 04/12/2024 1:48 AM CDT Sexual Orientation Not on file documented as of this encounter Plan of Treatment Not on file documented as of this encounter Procedures Procedure Name Priority Date/Time Associated Diagnosis Comments CHG HUMAN PAPILLOMA VACC VFC 10/01/2007 12:00 AM OPERATIONS AGENT documented in this encounter Visit Diagnoses Not on filedocumented in this encounter Care Teams Director Inpatient Headache Program Relationship Specialty Start Date End Date Shima Tavarez FNP [address] [place] [phone] PCP - General 12/28/20 documented as of this encounter
--- OUTSIDE RECORDS SUMMARY | 2025-06-08 18:17 | XMS_ITS | Encounter Summary ---
Author Organization [facility] Address [address] [place] [address] Care Team Providers Care Renal Dietitian Name Role Phone Shima Tavarez Primary Care Provider +1 [phone] Encounter Details Date Type Department Care Team (Late st Contact Info) Description 07/12/2004 Emergency [facility] Holly De Jesus MD NO ADDRESS ON FILE Er, Authorized P NO ADDRESS ON FILE FEVER (Primary Dx) Social History Tobacco Use Types Packs/Day Years Used Date Smoking Tobacco: Never Assessed Comments Unknown Sex and Gender Information Value Date Recorded Sex Assigned at Female 04/12/2024 1:48 AM CDT Legal Sex Female 4:34 AM CHESTNUT TANNER Gender Identity Female 04/12/2024 1:48 AM CDT Sexual Orientation Not on file documented as of this encounter Plan of Treatment Not on file documented as of this encounter Visit Diagnoses Diagnosis Fever and other physiologic disturbances of temperature regulation- Primary documented in this encounter Care Teams Renal Dietitian Relationship Specialty Start Date End Date Shima Tavarez FNP [address] [place] [phone] PCP - General 12/28/20 documented as of this encounter
--- OUTSIDE RECORDS SUMMARY | 2025-06-08 18:17 | XMS_ITS | Encounter Summary ---
Author Organization [facility] Address [address] [place] [address] Care Team Providers Care Manager Transit Name Role Phone Shima Tavarez Primary Care Provider +1 [phone] Encounter Details Date Type Department Care Team (Late st Contact Info) Description 10/01/2007 Outpatient Historical [facility] Family Medicine [place] [address] [place] [address] [place] [address] [place] [address] Social History Tobacco Use Types Packs/Day Years Used Date Smoking Tobacco: Never Assessed Comments Unknown Sex and Gender Information Value Date Recorded Sex Assigned at Female 04/12/2024 1:48 AM CDT Legal Sex Female 4:34 AM BALLISTICIAN Gender Identity Female 04/12/2024 1:48 AM CDT Sexual Orientation Not on file documented as of this encounter Plan of Treatment Not on file documented as of this encounter Visit Diagnoses Not on filedocumented in this encounter Care Teams Manager Transit Relationship Specialty Start Date End Date Shima Tavarez FNP [address] [place] [address] PCP - General 12/28/20 documented as of this encounter
--- OUTSIDE RECORDS SUMMARY | 2025-06-08 18:17 | XMS_ITS | Encounter Summary ---
Author Organization [facility] Address [address] [place] [address] Care Team Providers Care Ocean Clam Boat Captain Name Role Phone Shima Tavarez Dena LITERACY COORDINATOR Primary Care Provider [phone] [phone] Encounter Details Date Type Department Care Team (Late st Contact Info) Description 08/28/2007 Orders Only [facility] Family Medicine [facility] [address] [facility] [address] [place] [address] [place] [address] [place] [address] Social History Tobacco Use Types Packs/Day Years Used Date Smoking Tobacco: Never Assessed Comments Unknown Sex and Gender Information Value Date Recorded Sex Assigned at Female 04/12/2024 1:48 AM CDT Legal Sex 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 Consider metformin vs. OCPs. LM with FM for mom to CB. SZC 08/28/07 at 2:15PM LM with FM. SZC * Holly Wade DO - 12/12/2007 9:00 PM CDT TIME:11:28 am PATIENT`S HOME PHONE: PATIENT`S WORK PHONE: PATIENT`S INSURANCE: [employer] [facility] WHO TOOK THE CALL: Zohreh Dorsey M GENERAL INFORMATION PATIENT STATUS: Established Patient. PCP: Mauro. ALTERNATIVE PHONE NUMBER: [phone] -- can talk to pt sister or mother. WHO CALLED: Patient called. CURRENT ALLERGY LIST: [facility] NUMBER: [phone] PROBLEMS: CONGESTION: Patient complains of chest congestion, complains of head congestion. The symptoms beganapproximately 2 days ago. COUGH:Patient complains of cough. The symptoms began approximately 2 days ago. Non Productive SORE THROAT: Patient complains of sore throat. The sore throat began approximately 2 days ago. mother is concerned because pt has bronchial asthma. SECTION 1: RN/REQUISITION APPROVER RESPONSE: orion 08/28/07 at 01:38 pm Pt started above symptoms yesterday. Temp. yesterday was 101.0. Pt also complains of body aches & runny nose.. Pt has been using inhaler. Pushing fluids and taking tylenol. Mother is wondering if you will prescribed tamiflu or antibiotic? She is concerned about pt asthma acting up. She is currently not wheezing or having sob. Please advise....ALLERGIES: Sulfa....amarjit DOCTOR`S RESPONSE: shilpi 08/28/07 at 02:11 pm MEDICATIONS: Call in to Pharmacy TAMIFLU ORAL CAPSULE CONVENTIONAL 75 MG, 1 cap po BID x 5 days, 10 Dispensed, status: NEW PRESCRIPTION, 08/28/2007. [facility] FINAL ACTION: orion 08/28/07 at 06:03 pm Called pharmacy at 08/28/07 at 06:03 pm. rx called into pharm...Pt advised...amarjit Electronically Signed by: Amarjit Rodrigez on Tuesday, August 28, 2007 documented in this encounter Plan of Treatment Not on file documented as of this encounter Visit Diagnoses Not on filedocumented in this encounter Care Teams Ocean Clam Boat Captain Relationship Specialty Start Date End Date Shima Tavarez FNP [address] [place] [phone] PCP - General 12/28/20 documented as of this encounter
--- OUTSIDE RECORDS SUMMARY | 2025-06-08 18:17 | XMS_ITS | Encounter Summary ---
Author Organization [facility] Address [address] [place] [address] Care Team Providers Care Accordion Repairer Name Role Phone Shima Tavarez Primary Care Provider +1 [phone] Encounter Details Date Type Department Care Team (Late st Contact Info) Description 11/25/2003 Outpatient Historical [facility] Family Medicine [place] [address] [facility] [address] [place] [address] [place] [address] 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
--- OUTSIDE RECORDS SUMMARY | 2025-06-08 18:17 | XMS_ITS | Encounter Summary ---
Author Organization [facility] Address 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
--- OUTSIDE RECORDS SUMMARY | 2025-06-08 18:17 | XMS_ITS | Encounter Summary ---
Author Organization [facility] Address [address] [place] [address] Care Team Providers Care Casting Operator Name Role Phone Shima Tavarez Primary Care Provider +1 -[phone] Encounter Details Date Type Department Care Team (Late st Contact Info) Description 04/28/2004 Outpatient Historical [facility] Family Medicine [facility] [address] [facility] [address] [place] [address] Grace Miller MD NO ADDRESS ON FILE Social History Tobacco Use Types Packs/Day Years Used Date Smoking Tobacco: Never Assessed Comments Unknown Sex and Gender Information Value Date Recorded Sex Assigned at Female 04/12/2024 1:48 AM CDT 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 Sex Female 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 Gender Identity Female 04/12/2024 1:48 AM CDT Sexual Orientation Not on file documented as of this encounter Last Filed Vital Signs Vital Sign Reading Time Taken Comments Blood Pressure 110/88 04/28/2004 10:20 AM CDT Pulse 76 04/28/2004 10:20 AM CDT Temperature 36.3 C (97.4 F) 04/28/2004 10:20 AM CDT Respiratory Rate 20 04/28/2004 10:20 AM CDT Oxygen Saturation - - Inhaled Oxygen Concentration - - Weight 54.4 kg (120 lb) 04/28/2004 10:20 AM CDT Height - - Body Mass Index - - documented in this encounter Plan of Treatment Not on file documented as of this encounter Visit Diagnoses Not on filedocumented in this encounter Care Teams Casting Operator Relationship Specialty Start Date End Date Shima Tavarez FNP [address] [place] [phone] PCP - General 12/28/20 documented as of this encounter
--- OUTSIDE RECORDS SUMMARY | 2025-06-08 18:17 | XMS_ITS | Encounter Summary ---
Author Organization [facility] Address [address] [place] [address] Care Team Providers Care Industrial Economics Professor Name Role Phone Shima Tavarez Primary Care Provider +1 -[phone] Encounter Details Date Type Department Care Team (Late st Contact Info) Description 04/21/2004 Emergency [facility] EM[facility] Angela Johnson MD [address] [facility] [address] [address] Er, Authorized P NO ADDRESS ON FILE ACUTE URI NOS (Primary Dx) Social History Tobacco Use Types Packs/Day Years Used Date Smoking Tobacco: Never Assessed Comments Unknown Sex and Gender Information Value Date Recorded Sex Assigned at Female 04/12/2024 1:48 AM CDT Legal Sex Female 4:34 AM CLOTH INSPECTOR Gender Identity Female 04/12/2024 1:48 AM CDT Sexual Orientation Not on file documented as of this encounter Plan of Treatment Not on file documented as of this encounter Visit Diagnoses Diagnosis Acute upper respiratory infections of unspecified site- Primary documented in this encounter Care Teams Industrial Economics Professor Relationship Specialty Start Date End Date Shima Tavarez FNP [address] [place] [phone] PCP - General 12/28/20 documented as of this encounter
--- OUTSIDE RECORDS SUMMARY | 2025-06-08 18:17 | XMS_ITS | Encounter Summary ---
Author Organization [facility] Address [address] [place] [address] Care Team Providers Care Golf Ball Molder Name Role Phone Shima Tavarez Primary Care Provider +1 -[phone] Encounter Details Date Type Department Care Team (Late st Contact Info) Description 10/02/2007 Outpatient Historical [facility] Medicine [facility] [address] [facility] [address] [place] [address] Other, St[facility] NO ADDRESS ON FILE Social History Tobacco Use Types Packs/Day Years Used Date Smoking Tobacco: Never Assessed Comments Unknown Sex and Gender Information Value Date Recorded Sex Assigned at Female 04/12/2024 1:48 AM CDT Legal Sex Female 4:34 AM WIRELESS CONSULTANT Gender Identity Female 04/12/2024 1:48 AM CDT Sexual Orientation Not on file documented as of this encounter Plan of Treatment Not on file documented as of this encounter Visit Diagnoses Not on filedocumented in this encounter Care Teams Golf Ball Molder Relationship Specialty Start Date End Date Shima Tavarez FNP [address] [place] [phone] PCP - General 12/28/20 documented as of this encounter
--- OUTSIDE RECORDS SUMMARY | 2025-06-08 18:17 | XMS_ITS | Encounter Summary ---
Author Organization [facility] Address [address] [place] [address] Care Team Providers Care Couture Dressmaker Name Role Phone Shima Tavarez Primary Care Provider +1 -[phone] Encounter Details Date Type Department Care Team (Late st Contact Info) Description 12/16/2003 Outpatient Historical [facility] Medicine [facility] [address] [facility] [address] [place] [address] Grace Miller MD NO ADDRESS ON FILE Social History Tobacco Use Types Packs/Day Years Used Date Smoking Tobacco: Never Assessed Comments Unknown Sex and Gender Information Value Date Recorded Sex Assigned at Female 04/12/2024 1:48 AM CDT Legal Sex Female 4:34 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
--- OUTSIDE RECORDS SUMMARY | 2025-06-08 18:17 | XMS_ITS | Encounter Summary ---
Author Organization [facility] Address [address] [place] [address] Care Team Providers Care Telecommunications Officer Name Role Phone Shima Tavarez Dena FAUSTIN Primary Care Provider [phone] [phone] Encounter Details Date Type Department Care Team (Late st Contact Info) Description 09/13/2007 Emergency [facility] Er, Authorized P NO ADDRESS ON FILE Jose Armando Grant MD NO ADDRESS ON FILE Painful Respiration Social History Tobacco Use Types Packs/Day Years Used Date Smoking Tobacco: Never Assessed Comments Unknown Sex and Gender Information Value Date Recorded Sex Assigned at Female 04/12/2024 1:48 AM CDT Legal Sex Female 4:34 AM NEWS VIDEOTAPE EDITOR Gender Identity Female 04/12/2024 1:48 AM CDT Sexual Orientation Not on file documented as of this encounter Plan of Treatment Not on file documented as of this encounter Procedures Procedure Name Priority Date/Time Associated Diagnosis Comments XR CHEST PA AND LATERAL 2 VW Routine 09/13/2007 2:00 AM NEWS VIDEOTAPE EDITOR URINALYSIS W/REFLEX MICROSCOPIC Stat 09/13/2007 1:52 AM NEWS VIDEOTAPE EDITOR documented in this encounter Results * XR CHEST PA AND LATERAL (09/13/2007 2:00 AM NEWS VIDEOTAPE EDITOR) Anatomical Region Laterality Modality Chest Other 09/13/2007 2:00 AM NEWS VIDEOTAPE EDITOR Narrative 09/13/2007 7:53 AM NEWS VIDEOTAPE EDITOR [facility] [address] [place], [place] [address] Admit Date: 09/13/2007 JUNIOR DUNLAP Sex: F Admit Prov: ER, AUTHORIZED P Date: 1990 Primary Care Prov: SHEELA PLEITEZ CMRN: [id number] [facility] SSN: [id number] IMAGING SERVICES Ordering Prov: N/A Accession Number: [id number] Interpretation Chest PA and lateral 09/13/2007 History: Pain. Findings: There is no pulmonary infiltrate, pleural effusion or pneumothorax. The cardiac and mediastinal silhouettes, hilar structures and bony thorax are within normal limits. Impression: No active pulmonary disease. . Dictated by: HEYDI HOUSTON 09/13/2007 07:48 Electronically signed by: HEYDI HOUSTON 09/13/2007 07:53 Transcribed: 09/13/2007 07:48 AMK Procedure Note Heydi Houston - 09/13/[address] [address] Admit Date: 09/13/2007 JUNIOR DUNLAP Sex: F Admit Prov: ER, AUTHORIZED P Date: 1990 Primary Care Prov: SHEELA PLEITEZ CMRN: [id number] Room: [facility] SSN: [id number] IMAGING SERVICES Ordering Prov: N/A Interpretation Chest PA and lateral 09/13/2007 History: Pain. Findings: There is no pulmonary infiltrate, pleural effusion or pneumothorax. The cardiac and mediastinal silhouettes, hilarstructures and bony thorax are within normal limits. Impression: No active pulmonary disease. . Dictated by: HEYDI HOUSTON 09/13/2007 07:48 Electronically signed by: HEYDI HOUSTON 09/13/2007 07:53 Transcribed: 09/13/2007 07:48 AMK us Jose Armando Grant MD DIAGNOSTIC IMAGING ORD ERABLES Final Result * URINALYSIS (09/13/2007 1:52 AM NEWS VIDEOTAPE EDITOR) SPECIFIC GRAVITY UA 1.001 1.001 - 1.035 [facility] BLOOD UA Negative Negative [facility] GLUCOSE UA Negative Negative [facility] COLOR UA Colorless [facility] NITRITE UA Negative Negative [facility] UROBILINOGEN UA <1 <=1 mg/dL [facility] PH UA 5.5 5.0 - 8.0 [facility] KETONES UA Negative Negative [facility] CLARITY UA Clear Clear [facility] PROTEIN UA Negative Negative [facility] BILIRUBIN UA Negative Negative [facility] LEUKOCYTE ESTERASE UA Negative Negative [facility] Urine, clean catch 09/13/2007 1:52 AM NEWS VIDEOTAPE EDITOR 09/13/2007 2:00 AM NEWS VIDEOTAPE EDITOR us Jose Armando Grant MD URINE ORDERABLES Final Result [facility] [address] [place] [address] documented in this encounter Visit Diagnoses Diagnosis Painful respiration documented in this encounter Care Teams Telecommunications Officer Relationship Specialty Start Date End Date Shima Tavarez FNP [address] [id number] PCP - General 12/28/20 documented as of this encounter
--- OUTSIDE RECORDS SUMMARY | 2025-06-08 18:17 | XMS_ITS | Encounter Summary ---
Author Organization [facility] Address [address] [place] [address] Care Team Providers Care Special Duty Nurse Name Role Phone Shima Tavarez Primary Care Provider [phone] Encounter Details Date Type Department Care Team (Late st Contact Info) Description 09/27/2007 Outpatient Historical [facility] Family Medicine [address] [place] [address] [place] [address] [place] [address] Social History Tobacco Use Types Packs/Day Years Used Date Smoking Tobacco: Never Assessed Comments Unknown Sex and Gender Information Value Date Recorded Sex Assigned at Female 04/12/2024 1:48 AM CDT Legal Sex Female 4:34 AM DEPUTY DIRECTOR OF FINANCE Gender Identity Female 04/12/2024 1:48 AM CDT Sexual Orientation Not on file documented as of this encounter Plan of Treatment Not on file documented as of this encounter Visit Diagnoses Not on filedocumented in this encounter Care Teams Special Duty Nurse Relationship Specialty Start Date End Date Shima Tavarez FNP [address] [place] [address] PCP - General 12/28/20 documented as of this encounter
--- OUTSIDE RECORDS SUMMARY | 2025-06-08 18:17 | XMS_ITS | Encounter Summary ---
Author Organization [facility] Address [address] [place] [address] Care Team Providers Care Roof Cement And Paint Maker Name Role Phone Shima Tavarez Primary Care Provider [phone] Encounter Details Date Type Department Care Team (Late st Contact Info) Description 05/29/2004 Emergency [facility] Wilda Georges MD [address] [place] [address] Er, Authorized P NO ADDRESS ON FILE HEMORRHAGE COMPLIC PROCEDURE (Primary Dx) Social History Tobacco Use Types Packs/Day Years Used Date Smoking Tobacco: Never Assessed Comments Unknown Sex and Gender Information Value Date Recorded Sex Assigned at Female 04/12/2024 1:48 AM CDT Legal Sex Female 4:34 AM POWER PRESS 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
--- OUTSIDE RECORDS SUMMARY | 2025-06-08 18:17 | XMS_ITS | Encounter Summary ---
Author Organization [facility] Address [address] [place] [address] Care Team Providers Care Foot And Ankle Surgeon Name Role Phone Shima Tavarez Primary Care Provider [phone] Encounter Details Date Type Department Care Team (Late st Contact Info) Description 09/08/2004 Outpatient Historical [facility] Medicine [facility] [address] [place] [address] Grace Miller MD NO ADDRESS ON FILE Social History Tobacco Use Types Packs/Day Years Used Date Smoking Tobacco: Never Assessed Comments Unknown Sex and Gender Information Value Date Recorded Sex Assigned at Female 04/12/2024 1:48 AM CDT Legal Sex Female 4:34 AM VIROLOGY TEACHER Gender Identity Female 04/12/2024 1:48 AM CDT Sexual Orientation Not on file documented as of this encounter Last Filed Vital Signs Vital Sign Reading Time Taken Comments Blood Pressure - - Pulse 88 09/08/2004 2:15 PM VIROLOGY TEACHER Temperature 35.4 C (95.8 F) 09/08/2004 2:15 PM VIROLOGY TEACHER Respiratory Rate - - Oxygen Saturation - - Inhaled Oxygen Concentration - - Weight 56.7 kg (125 lb) 09/08/2004 2:15 PM VIROLOGY TEACHER Height - - Body Mass Index - - documented in this encounter Plan of Treatment Not on file documented as of this encounter Visit Diagnoses Not on filedocumented in this encounter Care Teams Foot And Ankle Surgeon Relationship Specialty Start Date End Date Shima Tavarez FNP [address] [place] [address] PCP - General 12/28/20 documented as of this encounter
--- OUTSIDE RECORDS SUMMARY | 2025-06-08 18:17 | XMS_ITS | Encounter Summary ---
Author Organization [facility] Address [address] [place] [address] Care Team Providers Care Colorer Name Role Phone Shima Tavarez Primary Care Provider [phone] Encounter Details Date Type Department Care Team (Late st Contact Info) Description 02/14/2004 Emergency [facility] Mirta Hyde MD NO ADDRESS ON FILE Er, Authorized P NO ADDRESS ON FILE ACUTE PHARYNGITIS (Primary Dx) Social History Tobacco Use Types Packs/Day Years Used Date Smoking Tobacco: Never Assessed Comments Unknown Sex and Gender Information Value Date Recorded Sex Assigned at Female 04/12/2024 1:48 AM CDT Legal Sex Female 4:34 AM AWARD CLERK Gender Identity Female 04/12/2024 1:48 AM CDT Sexual Orientation Not on file documented as of this encounter Plan of Treatment Not on file documented as of this encounter Visit Diagnoses Diagnosis Acute pharyngitis- Primary documented in this encounter Care Teams Colorer Relationship Specialty Start Date End Date Shima Tavarez FNP [address] [place] [address] PCP - General 12/28/20 documented as of this encounter
--- NOTE | 2025-06-08 18:22 | ED_ITS ---
HPI - Dizziness 2 General: Chief Complaint: Headache Stated Complaint: Dizzy since 1400 worsening, SERRANO Time Seen by Provider: 06/08/25 18:17 Source: patient Mode of arrival: ambulatory Limitations: no limitations History of Present Illness: HPI Narrative: Patient is a 34-year-old female presents to ED today with complaint of a mild headache and dizziness that began several hours ago while at work. She is currently rating her headache at a 2/10. She is not overly bothered by the headache. She states the dizziness is mild and seems to be worse with movement. She is ambulatory here in the emergency department without difficulty or assistance. She states she has had similar episodes in the past. She overall feels like she might be dehydrated. No fevers. No neck pain. No recent illness. Vitals are stable upon arrival. MD elicited complaint: dizziness and other (headache) Onset (ago): day(s) Severity: mild History of similar symptoms: Yes Exacerbating factors: movement/ambulation Relieving factors: remaining still Associated symptoms: Reports no associated symptoms and headache(s); Denies chest pain, chills, malaise, nausea or vomiting Associated neuro symptoms: Reports no associated symptoms; Deny numbness in extremities Stroke scale total: 0 Related Data Home Medications ?Medication ?Instructions ?Recorded ?Confirmed fluticasone propionate 50 1 spray intranasal DAILY PRN 07/26/23 02/24/25 mcg/actuation nasal allergies spray,suspension fluticasone 250 mcg-salmeterol 50 1 inh inhalation BID 06/26/24 02/24/25 mcg/dose blistr powdr for inhalation (Advair Diskus) metformin 500 mg tablet 500 mg PO BID 06/26/2402/24 naproxen 500 mg tablet 500 mg PO BID 06/26/2402/24 lorazepam 0.5 mg tablet 0.5 mg PO DAILY PRN Anxiety 10/23/24 02/24/25 Previous Rx's ?Medication ?Instructions ?Recorded albuterol sulfate 90 mcg/actuation 2 inh inhalation Q6 H PRN shortness 09/16/23 aerosol inhaler of breath or wheezing #8.5 g aarti tizanidine 4 mg tablet 4 mg PO BID PRN muscle spast icity 10/23/24 #60 tabs diclofenac sodium 75 mg 75 mg PO Q12H PRN pain #20 t abs 11/25/24 tablet,delayed release hydrocodone 5 mg-acetaminophen 325 1 tab PO Q6H PRN pa in #14 tabs 01/04/25 mg tablet albuterol sulfate 2.5 mg/3 mL 2.5 mg (3 mL) inhalation Q4H PRN 01/12/25 (0.083 %) solution for nebulization shortness of breat h or wheezing #90 mL prednisone 50 mg tablet 50 mg PO DAILY #5 tabs 01/12 Allergies Allergy/AdvReac Type Severity Reaction Status Date / Time aspirin Allergy Severe ALGY-Difficulty Verified 02/24/25 14:15 Breathing Review of Systems 2 Const: Denies: fever(s), chills, body aches, fatigue or malaise Eyes: Denies: change in vision, blurry vision, photophobia, floaters or seeing flashes Card: Denies: chest pain Resp: Denies: dyspnea GI: Denies: abdominal pain, nausea, vomiting or diarrhea : Denies: flank pain, dysuria or hematuria Musc: Denies: neck pain, back pain, extremity pain or joint swelling Skin/Breast: Denies: rash Neuro: Reports: headache(s) and dizziness; Denies: numbness in extremities, weakness in extremities or sensory changes PFSH ED 2 PFSH: Medical History Marijuana use, episodic Alcohol use disorder, severe, dependence Cigarette nicotine dependence Chronic post-traumatic stress disorder Bipolar II disorder, most recent episode hypomanic moderate severity with mixed features Psychiatric care Asthma Surgical History History of laparoscopic cholecystectomy History of tonsillectomy and adenoidectomy Hx of colonoscopy AGE 18 No significant past surgical history Family History Denies family history of Colon cancer Ovarian cancer Diabetes Heart disease Breast cancer Hypertension Uterine cancer Thyroid disease Stroke Social History Smoking and tobacco/nicotine status: current every day tobacco/nicotine user Alcohol intake: former Adopted: No Caregiver/support person: No Lives independently: Yes Household members: family Housing: House Marital status: Single Number of children: 0 Highest education level completed: 9th Grade service: No Current occupational status: unemployed Pets and animals: Yes Pets & animals: dog(s) Leisure activites: other Leisure activities details: river Sexually active: Yes Do you think of yourself as: Straight/Heterosexual Current gender identity: Female Sun/Scientologist: Lutheran Special sun needs: No Agree to transfusion: Yes Physical Exam 2 Const: COMMON NORMALS: no acute distress, patient oriented x3, no limitations, alert and well nourished GENERAL APPEARANCE: cooperative HENMT: COMMON NORMALS: normocephalic, atraumatic, external ears normal and EAC's normal HEAD & SCALP: normal to inspection, normocephalic and atraumatic FACE & SINUS: normal facial exam and face symmetric EXTERNAL EAR: Yes external ears normal EXTERNAL AUDITORY CANAL: EAC's normal TYMPANIC MEMBRANE: TM abnormal (mild fluid behind R) Eye: COMMON NORMALS: Equal, round and reactive pupils present and EOMs intact bilaterally GENERAL EYE: appearance normal, both eyes and all related structures and normal light reflex PUPIL: Yes Equal, round and reactive pupils present DIRECT OPHTHALMOSCOPY: Yes normal light reflex OTHER: no nystagmus Neck/C-Spine: COMMON NORMALS: full ROM, no lymphadenopathy and no meningeal signs Resp: COMMON NORMALS: normal respiratory effort and clear to auscultation bilaterally AUSCULTATION: clear to auscultation bilaterally Cardio: COMMON NORMALS: regular rate and regular rhythm RATE: regular rate RHYTHM: regular rhythm GI: COMMON NORMALS: non-tender Extremity: GENERAL: Yes normal exam except as noted Neuro: MARK COMA SCALE: document GCS findings [place] coma scale eye opening: Spontaneous Mark coma scale verbal response: Orientated Mark coma scale motor response: Obey commands [place] coma scale total score: 15 COMMON NORMALS: patient oriented x3, CN's II-XII intact bilaterally, moves all extremities, no focal motor deficits, no sensory deficits noted and gait normal SENSORIUM/ORIENTATION: Yes alert MENINGEAL SIGNS: Yes no meningeal signs GAIT: Yes Normal gait present (ambulatory here without difficulty or assistance) OTHER: NIH 0 Skin: COMMON NORMALS: no rashes or lesions noted GENERAL SKIN EXAM: no rashes or lesions noted Course 2 Vital Signs: Vital signs: Vital Signs Temperature 97.7 F 06/08/25 18:16 Pulse Rate 79 06/08/25 18:42 Respiratory Rate 18 06/08/25 18:16 Blood Pressure 131/81 06/08/25 18:42 Pulse Oximetry 99 06/08/25 18:42 Oxygen Delivery Me thod Room Air 06/08/25 18:42 MDM - Dizziness Medical Decision Making At this time I do not have any concern for central etiology for her dizziness. She has no N/V. She is ambulatory here without difficulty. She declined treatment for her headache-only rating it a 2/10. Vital signs are stable. She does feel better after IV fluids and meclizine and wants to go home. Patient's blood work overall is nonactionable. She was found to have a positive . Serum hCG was ran and found to be 4608. Patient is not having any abdominal pain or pelvic pain. No vaginal bleeding. She will be referred to OB. At this time patient is stable for discharge from the emergency standpoint. Return to ED precautions given. Otherwise she will follow-up with primary care. Medical Records I reviewed the patient's medical records. Lab Data I reviewed the patient's lab results. 06/08/25 18:35 06/08/25 18:35 Laboratory Results WBC 10.35 10^3/uL (3.29-11.43) 06/08/25 18:35 RBC 4.60 10^6/uL (3.85-5.65) 06/08/25 18:35 Hgb 13.40 g/dL (11.27-16.99) 06/08/25 18:35 Hct 41.4 % (36-47) 06/08/25 18:35 MCV 90.0 fl (85-98) 06/08/25 18:35 MCH 29.1 pg (27-33) 06/08/25 18:35 MCHC 32.4 g/dL (30-55) 06/08/25 18:35 RDW 14.3 % (12.1-15.1) 06/08/25 18:35 Plt Count 317 10^3/cmm (157-399) 06/08/25 18:35 MPV 10.3 fL (7.4-10.4) 06/08/25 18:35 Neut % (Auto) 66.7 % 06/08/25 18:35 Lymph % (Auto) 24.3 % 06/08/25 18:35 [place] % (Auto) 4.8 % 06/08/25 18:35 Eos % (Auto) 3.0 % 06/08/25 18:35 Baso % (Auto) 0.4 % 06/08/25 18:35 Neut # (Auto) 6.91 10^3/uL (1.8-7.7) 06/08/25 18:35 Lymph # (Auto) 2.5 10^3/uL (0.8-4.8) 06/08/25 18:35 [place] # (Auto) 0.5 10^3/uL (0.2-0.9) 06/08/25 18:35 Eos # (Auto) 0.3 10^3/uL (0.0-0.8) 06/08/25 18:35 Baso # (Auto) 0.0 10^3/uL (0.0-0.1) 06/08/25 18:35 Nucleated RBC % (auto) 0 % 06/08/25 18:35 Nucleated RBCs # 0.0 /100WBC 06/08/25 18:35 Sodium 137 mmol/L (136-145) 06/08/25 18:35 Potassium 3.6 mmol/L (3.5-5.1) 06/08/25 18:35 Chloride 103 mmol/L (98-107) 06/08/25 18:35 Carbon Dioxide 20 mmol/L (22-29) L 06/08/25 18:35 Anion Gap 17.6 (5-19) 06/08/25 18:35 BUN 6 mg/dL (6-20) 06/08/25 18:35 Creatinine 0.6 mg/dL (0.5-0.9) 06/08/25 18:35 GFR Calculation 114.4 mL/min (90-130) 06/08/25 18:35 Glucose 98 mg/dL (65-115) 06/08/25 18:35 Calculated Osmolality 282 mOsm/kg (285-295) L 06/08/25 18:35 Calcium 9.1 mg/dL (8.5-10.5) 06/08/25 18:35 Total Bilirubin 0.4 mg/dL (0.15-1.2) 06/08/25 18:35 AST 21 U/L (0-32) 06/08/25 18:35 ALT 29 U/L (0-33) 06/08/25 18:35 Alkaline Phosphatase 64 U/L (35-105) 06/08/25 18:35 Total Protein 7.1 g/dL (6.6-8.7) 06/08/25 18:35 Albumin 4.5 g/dL (3.5-5.2) 06/08/25 18:35 Globulin 2.6 g/dL (1.3-4.6) 06/08/25 18:35 HCG, Qual Positive (Negative) H 06/08/25 18:35 Ser , Semi-Qnt 4608.00 mIU/mL 06/08/25 18:35 Urine Color Yellow (Yellow) 06/08/25 19:13 Urine Appearance Clear (CLEAR) 06/08/25 19:13 Urine pH 6.5 (5-7) 06/08/25 19:13 Ur Specific [place] 1.008 (1.005-1.030) 06/08/25 19:13 Urine Protein Negative (Negative) 06/08/25 19:13 Urine Glucose (UA) Negative (Normal) 06/08/25 19:13 Urine Ketones Trace (Negative) 06/08/25 19:13 Urine Blood Negative (Negative) 06/08/25 19:13 Urine Nitrate Negative (Negative) 06/08/25 19:13 Urine Bilirubin Negative (Negative) 06/08/25 19:13 Urine Urobilinogen 0.2 mg/dL (Negative) 06/08/25 19:13 Ur Leukocyte Esterase Negative (Negative) 06/08/25 19:13 Urine RBC 0-2 /hpf (0-2) 06/08/25 19:13 Urine WBC 0-5 /hpf (0-5) 06/08/25 19:13 Ur Squamous Epith Cells 0-5 /hpf (0-5) 06/08/25 19:13 Amorphous Sediment Not Reportable 06/08/25 19:13 Urine Bacteria None seen /hpf (NONE) 06/08/25 19:13 Hyaline Casts 0-4 /lpf H 06/08/25 19:13 No radiology studies performed this visit Discharge Plan Discharge Patient Disposition: Home Clinical Impression: Dizziness Headache Qualifiers: Headache type: unspecified Headache chronicity pattern: acute headache I ntractability: not intractable Qualified Code(s): R51.9 - Headache, unspecified Qualifiers: Weeks of gestation: unspecified Qualified Code(s): Z34.90 - Encounter for supervision of normal , unspecified, unspecified trimester Condition: Stable Prescriptions: No Action lorazepam 0.5 mg tablet 0.5 mg PO DAILY PRN (Reason: Anxiety) tizanidine 4 mg tablet 4 mg PO BID PRN (Reason: muscle spasticity) Qty: 60 0RF hydrocodone-acetaminophen 5-325 mg tablet 1 tab PO Q6H PRN (Reason: pain) Qty: 14 0RF fluticasone propionate 50 mcg/actuation spray,suspension 1 spray INTRANASAL DAILY PRN (Reason: allergies) albuterol sulfate 90 mcg/actuation HFA aerosol inhaler 2 inh inhalation Q6H PRN (Reason: shortness of breath or wheezing) Qty: 8.5 0RF metformin 500 mg tablet 500 mg PO BID fluticasone propion-salmeterol [Advair Diskus] 250-50 mcg/dose blister with device 1 inh INHALATION BID naproxen 500 mg tablet 500 mg PO BID diclofenac sodium 75 mg tablet,delayed release (DR/EC) 75 mg PO Q12H PRN (Reason: pain) Qty: 20 0RF albuterol sulfate 2.5 mg /3 mL (0.083 %) solution for nebulization 2.5 mg INHALATION Q4H PRN (Reason: shortness of breath or wheezing) Qty: 90 0RF prednisone 50 mg tablet 50 mg PO DAILY Qty: 5 0RF Discharge Orders: Discharge ED (Routine); Ordered 06/08/25 Ordered By: Carisa Dudley Referrals: Jesus Gonzales MD [Primary Care Provider, Family Practice] Patient Instructions: Patient Portal & Lynnette Instructions Activity Restrictions/Additional Instructions: As we discussed, blood work here was unremarkable. You were found to be . hCG is roughly 4600. I placed a case management referral to get you set up with an OB provider. You may return to the emergency department at any time for onset of severe abdominal or pelvic pain, vaginal bleeding, or any other concerns you may have. Print Language: Maltese Coding Level of Care Code ED Tie Tamper for Ko Cabrera
[2025-06-08 18:41] LABS: Hematocrit 41.4 % (36-47); Hemoglobin 13.40 g/dL (11.27-16.99); Mean Corpuscular HGB Conc 32.4 g/dL (30-55); Mean Corpuscular Hemoglobin 29.1 pg (27-33); Mean Corpuscular Volume 90.0 fl (85-98); Nucleated Red Blood Cells % 0 %; Platelet Count 317 10^3/cmm (157-399); Red Blood Count 4.60 10^6/uL (3.85-5.65); White Blood Count 10.35 10^3/uL (3.29-11.43)
[2025-06-08 18:42] VITALS: BP 131/81; PULSE 79; O2SAT 99
[2025-06-08 18:48] LABS: HCG, Serum Qual Positive (Negative)
[2025-06-08 19:00] LABS: Alanine Aminotransferase 29 U/L (0-33); Albumin Level 4.5 g/dL (3.5-5.2); Alkaline Phosphatase 64 U/L (35-105); Anion Gap 17.6 (5-19); Aspartate Amino Transferase 21 U/L (0-32); Blood Urea Nitrogen 6 mg/dL (6-20); Calcium 9.1 mg/dL (8.5-10.5); Carbon Dioxide 20 mmol/L (22-29); Chloride 103 mmol/L (98-107); Creatinine Clr Calc Pharmacy 163.0543; Globulin 2.6 g/dL (1.3-4.6); Glucose 98 mg/dL (65-115); Osmolality Calculated 282 mOsm/kg (285-295); Potassium 3.6 mmol/L (3.5-5.1); Sodium 137 mmol/L (136-145); Total Protein 7.1 g/dL (6.6-8.7)
[2025-06-08 19:44] LABS: Glucose Urine UA Negative (Normal); Nitrate Urine Negative (Negative); Specific Gravity, Urine 1.008 (1.005-1.030)
[2025-06-08 19:49] LABS: Add Urine Microscopic? YES
[2025-06-08 20:13] VITALS: BP 159/97; PULSE 78; O2SAT 100
== END 2025-06-08 20:14 | disposition home or self-care (01) ==
PROVIDERS: Emergency Provider Physician Assistant; PCP Family Medicine
DX: R42 Dizziness and giddiness (principal); R51.9 Headache, unspecified; Z34.90 Encounter for supervision of normal pregnancy, unspecified, unspecified trimester; Z79.84 Long term (current) use of oral hypoglycemic drugs; Z72.0 Tobacco use
CPT/HCPCS: 36415; 80053; 81001; 84702; 84703; 85025; 96360; 99284; J7030; J8597

== ENCOUNTER → 2025-06-23 11:15 | Outpatient (BNVA) | payer OTHER, SELFPAY ==
[2024-06-07 12:09] VITALS: BP 155/96; BMI 41.6
== END ==
PROVIDERS: PCP Family Medicine; Visit Provider Psychiatry & Neurology Psychiatry
DX: F10.20 Alcohol dependence, uncomplicated (principal); F43.12 Post-traumatic stress disorder, chronic
CPT/HCPCS: 80061; 83036

== ENCOUNTER 2025-07-24 07:45 | Emergency (ER) | payer SELFPAY ==
[2025-06-24 11:07] VITALS: BP 139/89; BMI 41.5
[2025-07-24 07:48] VITALS: BP 160/90; PULSE 85; RESP 18; TEMP 37; O2SAT 99; BMI 41.3
--- NOTE | 2025-07-24 07:52 | W.ED.URI ---
HPI - URI/Sore Throat General: Chief Complaint: Upper Respiratory Infection Stated Complaint: congestion / sore throat Time Seen by Provider: 07/24/25 07:49 History of Present Illness: 34-year-old female with history of asthma and bipolar disorder who presents emergency room with cough, congestion and mild shortness of breath. She recently discovered she is 12 weeks . Has had a bit of a sore throat. She has a history of asthma. She is using her inhaler. No chest pain. Vital signs are normal. Related Data Home Medications ?Medication ?Instructions ?Recorded ?Confirmed fluticasone 250 mcg-salmeterol 50 1 inh inhalation BID 06/26/24 06/23/25 mcg/dose blistr powdr for inhalation (Advair Diskus) Previous Rx's ?Medication ?Instructions ?Recorded albuterol sulfate 90 mcg/actuation 2 inh inhalation Q6H PRN shortness 09/16/23 aerosol inhaler of breath or wheezing #8.5 grams albuterol sulfate 2.5 mg/3 mL 2.5 mg (3 mL) inhalation Q4H PRN 01/12/25 (0.083 %) solution for nebulization shortness of breath or wheezing #90 mL cephalexin 500 mg capsule 500 mg PO TID 5 days #15 caps 07/24/25 dexamethasone 6 mg tablet 6 mg PO DAILY 5 days #5 tabs 07/24/25 Allergies Allergy/AdvReac Type Severity Reaction Status Date / Time aspirin Allergy Severe ALGY-Difficulty Verified 07/24/25 07:50 Breathing venom-wasp Allergy Severe ALGY-Difficulty Verified 07/24/25 07:50 Breathing Review of Systems Narrative: Constitutional symptoms: Negative except as documented in HPI. Skin symptoms: Negative except as documented in HPI. Eye symptoms: Negative except as documented in HPI. ENMT symptoms: Negative except as documented in HPI. Respiratory symptoms: Negative except as documented in HPI. Cardiovascular symptoms: Negative except as documented in HPI. Gastrointestinal symptoms: Negative except as documented in HPI. Genitourinary symptoms: Negative except as documented in HPI. Musculoskeletal symptoms: Negative except as documented in HPI. Neurologic symptoms: Negative except as documented in HPI. Psychiatric symptoms: Negative except as documented in HPI. Endocrine symptoms: Negative except as documented in HPI. [facility] ED PFSH: Medical History (Updated 07/24/25 @ 08:05 by Katlin Brown MD) Marijuana use, episodic Alcohol use disorder, severe, dependence Cigarette nicotine dependence Chronic post-traumatic stress disorder Bipolar II disorder, most recent episode hypomanic moderate severity with mixed features Psychiatric care Asthma Surgical History History of laparoscopic cholecystectomy History of tonsillectomy and adenoidectomy Hx of colonoscopy AGE 18 No significant past surgical history Family History Denies family history of Colon cancer Ovarian cancer Diabetes Heart disease Breast cancer Hypertension Uterine cancer Thyroid disease Stroke Social History (Updated 06/23/25 @ 10:45 by Ofelia Kendrick RN) Smoking and tobacco/nicotine status: current every day tobacco/nicotine user cigarettes Packs smoked per day: 0.5 Years cigarettes smoked: 21 Second hand smoke exposure: Yes Alcohol intake: former Former alcohol use details: 07.30.2024 Substance/Drug Use: never Adopted: No Caregiver/support person: No Lives independently: Yes Household members: family Housing: House Marital status: Single Number of children: 0 Highest education level completed: 9th Grade service: No Current occupational status: employed Current occupational exposures/hazards: No Pets and animals: Yes (4 dogs and 6 cats) Pets & animals: dog(s) Leisure activites: other Leisure activities details: watch TV and cook Sexually active: Yes How many partners: 1 Do you think of yourself as: Straight/Heterosexual Current gender identity: Female Sun/Caodaism: None Special sun needs: No Agree to transfusion: Yes Female Reproductive History: Para: 0 Physical Exam Narrative: EXAM NARRATIVE: General: Alert, no acute distress. Skin: Warm, dry. Head: Normocephalic, atraumatic. Neck: Supple, trachea midline. Eye: Extraocular movements are intact. Ears, nose, mouth and throat: Oral mucosa moist. Cardiovascular: Regular, Normal peripheral perfusion. Respiratory: some expiratory wheeze, no increased wob, breath sounds are equal, Symmetrical chest wall expansion. Gastrointestinal: Soft, Nontender, Non distended Musculoskeletal: Normal ROM, no deformity. Neurological: Alert and oriented, No focal neurological deficit observed. Psychiatric: Cooperative, appropriate mood & affect. Course Vital Signs: Vital signs: Vital Signs Temperature 98.6 F 07/24/25 07:48 Pulse Rate 65 07/24/25 08:17 Respiratory Rate 18 07/24/25 07:48 Blood Pressure 128/87 07/24/25 08:17 Pulse Oximetry 98 07/24/25 08:17 MDM - URI/Sore Throat Medical Decision Making Medical decision making Patient's reason for coming to the emergency room: Cough, congestion, Social determinants: Patient is employed, accompanied by her mother I reviewed the patient's medical record. Patient has a history of bipolar disorder and asthma I reviewed the patient's current home meds Patient does have an inhaler at home Alternate historians: None Differential diagnosis: including but not limited to and based on the above HPI, review of systems and physical exam: Orders placed to evaluate differential diagnosis based on the above differential, HPI and physical exam Lab Review: Laboratory results were reviewed and interpreted by myself the emergency room physician. Patient has rhinovirus Assessment and plan: Upper respiratory infection ? No pharmacies open today so I did give her a dose of dexamethasone here. - Discharged home - Discussed plan with patient. Answered any questions. - Evaluation and treatment of this problem were appropriate in the emergency setting. Lab Data Laboratory Results Adenovirus (PCR) Not detected (NOT DETECT) 07/24/25 07:45 C. pneumoniae DNA (PCR) Not detected (NOT DETECT) 07/24/25 07:45 Coronavirus 229E (PCR) Not detected (NOT DETECT) 07/24/25 07:45 Human Metapneumovir PCR Not detected (NOT DETECT) 07/24/25 07:45 Influenza A (H1) PCR Not detected (NOT DETECT) 07/24/25 07:45 Influ A (H1/09) PCR Not detected (NOT DETECT) 07/24/25 07:45 Influenza A (H3) PCR Not detected (NOT DETECT) 07/24/25 07:45 Influenza Type A (PCR) Not detected (NOT DETECT) 07/24/25 07:45 Influenza Type B (PCR) Not detected (NOT DETECT) 07/24/25 07:45 M. pneumoniae (PCR) Not detected (NOT DETECT) 07/24/25 07:45 Parainfluenza 1 (PCR) Not detected (NOT DETECT) 07/24/25 07:45 Parainfluenza 2 (PCR) Not detected (NOT DETECT) 07/24/25 07:45 Parainfluenza 3 (PCR) Not detected (NOT DETECT) 07/24/25 07:45 Parainfluenza 4 (PCR) Not detected (NOT DETECT) 07/24/25 07:45 RSV Type A (PCR) Not detected (NOT DETECT) 07/24/25 07:45 RSV Type B (PCR) Not detected (NOT DETECT) 07/24/25 07:45 Entero/Rhino (PCR) Detected (NOT DETECT) A 07/24/25 07:45 SARS-CoV-2 (PCR) Not detected (NOT DETECT) 07/24/25 07:45 No radiology studies performed this visit Discharge Plan Discharge Patient Disposition: Home Clinical Impression: Upper respiratory infection, Condition: Stable Prescriptions: New dexamethasone 6 mg tablet 6 mg PO DAILY 5 Days Qty: 5 0RF cephalexin 500 mg capsule 500 mg PO TID 5 Days Qty: 15 0RF No Action albuterol sulfate 90 mcg/actuation HFA aerosol inhaler 2 inh inhalation Q6H PRN (Reason: shortness of breath or wheezing) Qty: 8.5 0RF fluticasone propion-salmeterol [Advair Diskus] 250-50 mcg/dose blister with device 1 inh INHALATION BID albuterol sulfate 2.5 mg /3 mL (0.083 %) solution for nebulization 2.5 mg INHALATION Q4H PRN (Reason: shortness of breath or wheezing) Qty: 90 0RF Discharge Orders: Discharge ED (Routine); Ordered 07/24/25 Ordered By: Katlin Brown Referrals: Jesus Gonzales MD [Primary Care Provider, Family Practice] Discharge Diet: Usual diet Discharge Activity: Increase activity as tolerated Patient Instructions: Upper Respiratory Infection (ED), Opioid Safety, Pain Management, Patient Portal & Lynnette Instructions Activity Restrictions/Additional Instructions: Please call back to the ER in a few hours for respiratory panel results. [phone] Thank you for choosing [facility] for your healthcare needs today. You have been screened and evaluated and felt safe for discharge. Health conditions do change or evolve sometimes and as such it is important that you follow up with your Primary Doctor to be re checked, 3-5 days is a general good time frame for follow up. You are always welcome to return to the ED for re assessment if your symptoms are worsening or you have new concerns. (Please note that included in your discharge packet is information concerning opioid safety and pain management. This information is given to all patients who are discharged from the ER regardless of their discharge diagnosis or the medicines they usually take or are prescribed.) Print Language: Haitian Coding Level of Care Code ED Machine Farmworker for Ko Cabrera
--- OUTSIDE RECORDS SUMMARY | 2025-07-24 07:59 | XMS_ITS | Encounter Summary ---
Author Organization [facility] Address [address] [place] [address] Care Team Providers Care Card Grinder Helper Name Role Phone Shima Tavarez Dena [facility] Primary Care Provider [phone] [phone] Encounter Details Date Type Department Care Team (Latest Contact Info) Description 08/13/[address] [facility] Family Medicine [place] [address] [place] [address] [place] [address] [place] [address] Scanty or Infrequent Menstruation Social History Tobacco Use Types Packs/Day Years Used Date Smoking Tobacco: Never Assessed Comments Unknown Sex and Gender Information Value Date Recorded Sex Assigned at Female 04/12/2024 1:48 AM CDT Legal Sex Female 4:34 AM PASTOR Gender Identity Female 04/12/2024 1:48 AM CDT Sexual Orientation Not on file documented as of this encounter Plan of Treatment Not on file documented as of this encounter Procedures Procedure Name Priority Date/Time Associated Diagnosis Comments 17 HYDROXYPROGESTERONE Routine 8 10:41 AM PASTOR INSULIN LEVEL Routine 08/13/2007 10:41 AM PASTOR DHEA Routine 08/13/2007 10:41 AM PASTOR HCG QUANTITATIVE, BLOOD Routine 08/13/19 08 10:41 AM PASTOR TSH WITH REFLEX FT4 AND FT3 Routine 08/13/2007 10:31 AM PASTOR PROLACTIN Routine 08/13/2007 10:31 AM PASTOR TESTOSTERONE, TOTAL Routine 08/13/2007 1 0:31 AM PASTOR documented in this encounter Results * DHEA (08/13/2007 10:41 AM PASTOR) DHEA 981 ng/dL INTERFACE SYSTEM Comment: Reference Range: NO RANGE ESTABLISHED FOR THIS AGE GROUP Pediatric Reference Ranges for DHEA, LC/MS/MS: 1-7 years: 11-443 ng/dL 8-13 years: 52-1216 ng/dL Lab test performed by: [facility] [address] [place] [address] [place]ano MUSTAFA MD 08/13/2007 10:4 1 AM PASTOR us Holly Wade DO CHEMISTRY ORDERABLES Edited INTERFACE SYSTEM Refer to clinic/hospital department * BETA HCG QUANTITATIVE, BLOOD (08/13/2007 10:41 AM PASTOR) HCG QUANT, BLOOD <5 0 - 5 [...] other clinical evidence. 08/13/2007 10:4 1 AM PASTOR Holly Wade DO CHEMISTRY ORDERABLES Edited Performing Organization Address City/[facility] Co de Phone Number INTERFACE SYSTEM Refer to clinic/hospital department * (ABNORMAL) INSULIN LEVEL (08/13/2007 10:41 AM PASTOR) INSULIN LEVEL 53(H) <17 uIU/mL INTER FACE SYSTEM Comment: [facility] test performed by: [facility] [address] [place] [address] AMADOR CHASE MD 08/13/2007 10:4 1 AM PASTOR Holly Wade DO CHEMISTRY ORDERABLES Edited Performing Organization Address [facility] de Phone Number INTERFACE SYSTEM Refer to clinic/hospital department * 17 HYDROXYPROGESTERONE (08/13/2007 10:41 AM PASTOR) 17 ALPHA HYDROXYPROGESTERONE 68 ng/dL INTERFAC E [...] Includes data from J Clin Endocrinol Metab. 1990;73:674-686; J Clin Endocrinol Metab. 1989; 69:6980-7696; and J Clin Endocrinol Metab. 1994; 78:226-270. Lab test performed by: [facility] [address] [place] [address] Michoacano MUSTAFA MD 08/13/2007 10:4 1 AM PASTOR Result [facility] [place] Holly Wade DO CHEMISTRY ORDERABLES Edited Performing Organization Address [facility] Phone Number INTERFACE SYSTEM Refer to clinic/hospital department * TSH WITH REFLEX FT4 AND FT3 (08/13/2007 10:31 AM PASTOR) TSH 1.72 0.27 - 4.20 uU/mL INTERFACE SYSTEM 08/13/2007 10:3 1 AM PASTOR Result [facility] [place] Holly Wade DO CHEMISTRY ORDERABLES Edited Performing Organization Address [facility] Phone Number INTERFACE SYSTEM Refer to clinic/hospital department * PROLACTIN (08/13/2007 10:31 AM PASTOR) PROLACTIN 7.55 ng/mL INTERFACE SYSTEM Comment: Female: Non- Reference Range 18 years - Adult = 4.79 - 23.30 ng/mL No Reference Range Established for patients less than 18 years of age..b r.br 08/13/2007 10:3 1 AM PASTOR Result [facility] Holly Wade DO CHEMISTRY ORDERABLES Edited Performing Organization Address [facility] Phone Number INTERFACE SYSTEM Refer to clinic/hospital department * (ABNORMAL) TESTOSTERONE (08/13/2007 10:31 AM PASTOR) TESTOSTERONE 80(H) 6 - 75 ng/dL INTERFACE SYSTEM 08/13/2007 10:3 1 AM PASTOR Result [facility] Holly Wade DO CHEMISTRY ORDERABLES Edited Performing Organization Address [facility]/ZIP Co de Phone Number INTERFACE SYSTEM Refer to clinic/hospital department documented in this encounter Visit Diagnoses Diagnosis Scanty or infrequent menstruation documented in this encounter Care Teams Card Grinder Helper Relationship Specialty Start Date End Date Shima Tavarez, ROXIE [address] [place] [address] PCP - General 12/28/20 documented as of this encounter
--- OUTSIDE RECORDS SUMMARY | 2025-07-24 07:59 | XMS_ITS | Encounter Summary ---
Author Organization [facility] Address [address] [place] [address] Care Team Providers Care Edge Bander Operator Name Role Phone Shima Tavarez Primary Care Provider [phone] Encounter Details Date Type Department Care Team (Late st Contact Info) Description 04/13/2007 Outpatient Historical [facility] Child and Adolescent Psychiatry [id number] [place] [address] [place] [address] [facility] [place] [address] Social History Tobacco Use Types Packs/Day Years Used Date Smoking Tobacco: Never Assessed Comments Unknown Sex and Gender Information Value Date Recorded Sex Assigned at Female 04/12/2024 1:48 AM CDT 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
--- OUTSIDE RECORDS SUMMARY | 2025-07-24 07:59 | XMS_ITS | Encounter Summary ---
Author Organization [facility] Address [address] [place] [address] Care Team Providers Care Plastics Fabricator Name Role Phone Shima Tavarez Primary Care Provider [phone] Encounter Details Date Type Department Care Team (Late st Contact Info) Description 08/06/2003 Outpatient Historical [facility] Family Medicine [facility] [address] [facility] [address] [place] [address] [place] [address] Social History Tobacco Use Types Packs/Day Years Used Date Smoking Tobacco: Never Assessed Comments Unknown Sex and Gender Information Value Date Recorded Sex Assigned at Female 04/12/2024 1:48 AM CDT Legal Sex Female 4:34 AM PLANER SETTER Gender Identity Female 04/12/2024 1:48 AM CDT Sexual Orientation Not on file documented as of this encounter Plan of Treatment Not on file documented as of this encounter Visit Diagnoses Not on filedocumented in this encounter Care Teams Plastics Fabricator Relationship Specialty Start Date End Date Shima Tavarez FNP [address] [place] [phone] PCP - General 12/28/20 documented as of this encounter
--- OUTSIDE RECORDS SUMMARY | 2025-07-24 07:59 | XMS_ITS | Encounter Summary ---
Author Organization [facility] Address [address] [place] [address] Care Team Providers Care Scooping Machine Tender Name Role Phone Shima Tavarez Primary Care Provider [phone] Encounter Details Date Type Department Care Team (Late st Contact Info) Description 04/30/2003 Emergency [facility] Wilfredo Cardoso, JUNI [address] [facility] [address] [place] [address] Er, Authorized P NO ADDRESS ON FILE HAND INJURY NOS (Primary Dx) Social History Tobacco Use Types Packs/Day Years Used Date Smoking Tobacco: Never Assessed Comments Unknown Sex and Gender Information Value Date Recorded Sex Assigned at Female 04/12/2024 1:48 AM CDT Legal Sex Female 4:34 AM PROPOSITION PLAYER Gender Identity Female 04/12/2024 1:48 AM CDT Sexual Orientation Not on file documented as of this encounter Plan of Treatment Not on file documented as of this encounter Visit Diagnoses Diagnosis Injury, other and unspecified, hand, except finger- Primary documented in this encounter Care Teams Scooping Machine Tender Relationship Specialty Start Date End Date Shima Tavarez FNP [address] [place] [phone] PCP - General 12/28/20 documented as of this encounter
--- OUTSIDE RECORDS SUMMARY | 2025-07-24 07:59 | XMS_ITS | Encounter Summary ---
Author Organization [facility] Address [address] [place] [address] Care Team Providers Care Prepared Foods Supervisor Name Role Phone Shima Tavarez Primary Care Provider [phone] Encounter Details Date Type Department Care Team (Late st Contact Info) Description 01/01/2003 Outpatient Historical [facility] Family Medicine [facility] [address] [facility] [address] [place] [address] [place] [address] [place] [address] Social History Tobacco Use Types Packs/Day Years Used Date Smoking Tobacco: Never Assessed Comments Unknown Sex and Gender Information Value Date Recorded Sex Assigned at Female 04/12/2024 1:48 AM CDT Legal Sex Female 4:34 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
--- OUTSIDE RECORDS SUMMARY | 2025-07-24 07:59 | XMS_ITS | Continuity of Care Document ---
Author Organization [facility] Mehrdad Kebede [facility], L.LJonyCJony, [facility] ([facility]) Address [address] [place] [address] Care Team Providers Care Supervisor Refractory Products Name Role Phone MANDA GONZALES Primary Care Provider Assessment Encounter Date Assessment Date Assessment LastModified by Organization Details LastModified Time 05/27/2025 05/27/2025 34-year-old fema le with a history of asthma presenting with exacerbation, showing symptoms of cough and nocturnal dyspnea, alongside allergic rhinitis. The patient is responding to antiasthmatic therapy but requires optimized allergy management and additional corticosteroids for acute control. [id number] Not available 05/27/2025 17:33:33 Plan of Treatment Reminders Order Date Submit Date Provider Last Modified By Organization Details Last Modified Time Details Appointments RETURN OB 2025 11:45A M Manda Gonzales MD Not available Not available Not available RETURN OB 2025 11:45A M Manda Gonzales MD Not available Not available Not available ULTRASO UND 2025 12:00P M ULTRASOUND Not available Not available Not available RETURN OB 2025 11:45A Elizabeth Gonzales MD Not available Not available Not available RETURN OB 2025 11:45A Elizabeth Gonzales MD Not available Not available Not available RETURN OB 2025 11:45A Elizabeth Gonzales MD Not available Not available Not available RETURN OB 2025 11:45A Elizabeth Gonzales MD Not available Not available Not available RETURN OB 2025 11:45A Elizabeth Gonzales MD Not available Not available Not available RETURN OB 2025 11:45A M Manda Gonzales MD Not available Not available Not available RETURN OB 2025 11:45A M Manda Gonzales MD Not available Not available Not available RETURN OB 2025 11:45A Elizabeth Manda Gonzales MD Not available Not available Not available RETURN OB 2025 11:45A Elizabeth Manda Gonzales MD Not available Not available Not available RETURN OB 2025 11:45A Elizabeth Manda Gonzales MD Not available Not available Not available RETURN OB 2025 11:45A M Manda Gonzales MD Not available Not available Not available Lab None recorde d. Referral None recorde d. Procedures None recorde d. Surgeries None recorde d. Imaging None recorde d. Medication Orders flutica sone propion ate 50 mcg/act uation nasal spray,s uspensi on [address], [address], 05/27/2025 17:49:04 prednis one 20 mg tablet [email or web address] [place] [address], [address] [place] [address], [address], 07/14/2025 12:51:37 Patient TargetsNo targets recorded. Patient Instructions Encounter Date Encounter Id Patient Instructions Last Modified By Organization Details Last Modified Time 05/27/2025 [id number] - Take the prescribed steroids as directed. [...] Not available 05/27/2025 17:33:38 Reason for Referral None Reported. Results Created Date Observation Date Name Description Value Unit Range Abnormal Flag Note LastModifiedBy Organization Detail LastModifiedTime 07/07/20 25 07/01/2025 US, obste tric, 1st trime ster No observ ation record ed. [email or web address] [facility] [address] [place], [address], 07/07/2025 16:18:33 Result Notes None recorded. Problems Name Problem SNOMED Code Status Onset Date Resolution Date Notes Provider Name and Address Organization Details Recorded Time Migraine 17311589 Active 2023 Hollie wheat [facility]ony 13:31:30 Insomnia 496226685 Active 2023 Hollie wheat [facility] 13:31:24 Anxiety 92482251 Active 2023 Hollie wheat [facility] 13:30:55 Fatigue 99548441 Completed 202310/06/2024 Hollie Bello [facility]CJony 13:32:31 Polycysti c ovary syndrome 459951526 Active 2023 Hollie wheat [facility] 13:31:59 Moderate persisten t asthma 306829018 Active 2023 Hollie wheat [facility] 13:31:51 Hidradeni tis suppurati va 67882388 Active 2024 Hollie wheat [facility] 13:31:14 Bilateral carpal tunnel syndrome 753366894470 12912 Active 2024 Manda Gonzales MD [address] [place] [address], [phone], [facility] 16:54:32 Abscess of axilla 47541265 Active 2024 Manda Gonzales MD [address] [place] [address], [address] [place] [address] 5, [facility] 17:01:45 Exacerbat ion of moderate persisten t asthma 958817172 Active 2024 Manda Gonzales MD [address] [place] [address], [address] [place] [address] 5, [facility] 10:33:40 Morbid obesity 176546866 Active 2024 Manda Gonzales MD [address] [place] [address], [phone], [facility] 15:18:35 Acute asthma 879841407 Active 2024 Manda Gonzales MD [address] [place] [address], [address], [facility] 17:30:24 Allergic rhinitis 31520686 Active 2024 Manda Gonzales MD [address] [place] [address], [address], [facility] 17:32:26 14683857 Active 2024 [facility] 15:24:34 Pain of knee region 8243625458 Active 2024 Manda Gonzales MD [address] [place] [phone], [facility] 5 13:05:15 Tobacco user 241205047 Active 2024 Manda Gonzales MD [address] [place], [address], [facility].L[facility]CJony 13:06:47 Problem Notes None recorded. Procedures Surgical History Date Name Laterality Status Provider Name and Address Organization Details Recorded Time 12/12/19 Incision/Drainage-S imple completed Manda Gonzales MD [address] [place], [address], [facility]ony 12/14/2024 10:28:50 tonsilectomy/adenoi ds completed [facility] [place] 12/13/2023 15:36:44 Cholecystectomy completed [facility] [place] 12/13/2023 15:36:50 Imaging Results None recorded. Procedure Notes None recorded. Medical Equipment None Reported. Allergies Allergen ID Allergen Name Allergen Category Reaction Reaction Severity Criticality Documentation Date Start Date Code Code System Note Provider Name and Address Organization Details Recorded Time 80933 aspirin medicatio n wheezing Not available Not available 06/24/2023 1191 RxNorm [facility] 14:08:25 85564 wasp venoms environme nt Not available Not available high 07/02/20252024 18142 RxNorm Not Available yessi - External Data Service - prod 5 11:19:07 Medications Name Sig Start Date Stop Date Status Note LastModified by Organization Details LastModified Time methocarbam ol 500 mg tablet TAKE 2 TABLETS BY MOUTH EVERY 8 HOURS 12/08 completed Not Available Not Available Not Available metformin 500 mg tablet TAKE 1 TABLET BY MOUTH TWICE DAILY 07/14 completed Not Available Not Available Not Available venlafaxine ER 37.5 mg capsule,ext ended release 24 hr take 1 capsule BY MOUTH EVERY MORNING 05/11 /2024 completed Not Available Not Available Not Available [...] completed Not Available Not Available Not Available nicotine 14 mg/24 hr daily transdermal patch Apply 1 patch every day by transderm al route. 2024 active Not Available Not Available Not Avai lable albuterol sulfate 2.5 mg/3 mL (0.083 %) [...] 1 TABLET BY MOUTH EVERY DAY NEEDED 07/14 completed Not Available Not Available Not Available fluconazole 150 mg tablet TAKE ONE [...] TAKE 1 TABLET BY MOUTH EVERY DAY 07/14 completed Not Available Not Available Not Available rizatriptan 10 mg tablet TAKE 1 TABLET BY MOUTH at ONSET of HEADACHE, MAY REPEAT in TWO hours. no more THAN TWO tablets in 24 hours 07/14 completed Not Available Not Available Not Available olanzapine 5 mg tablet TAKE 1 [...] for inhalation INHALE 1 PUFF TWICE DAILY 07/14 completed Not Available Not Available Not Available nicotine 21 mg/24 hr daily transdermal patch Apply 1 patch every day by transderm al route. 2024 active Not Available Not Available Not Avai lable Advair Diskus 500 mcg-50 mcg/dose powder for [...] Available ondansetron 4 mg disintegrat ing tablet Place 2 tablets twice a day by transling ual route. 2024 active Not Available Not Available Not Avai lable fluticasone propionate 50 mcg/actuati on nasal spray,suspe nsion USE 1 SPRAY INTRANASA L EVERY DAY active Not Available Not Available No t Available doxycycline hyclate 100 mg tablet TAKE 1 TABLET BY MOUTH TWICE DAILY FOR 7 DAYS 04/08 completed Not Available Not Available Not Available naproxen 500 mg tablet TAKE 1 TABLET BY MOUTH TWICE DAILY with meals 07/14 completed Not Available Not Available Not Available amoxicillin 875 mg-ernstu m clavulanate 125 mg tablet TAKE 1 TABLET BY MOUTH TWICE DAILY 12/08 completed Not Available Not Available Not Available nicotine 7 mg/24 hr daily transdermal patch Apply 1 patch every day by transderm al route. 2024 active Not Available Not Available Not Avai lable Ventolin HFA 90 mcg/actuati on aerosol inhaler [...] completed Not Available Not Available Not Available Vitamin 27 mg iron-0.8 mg tablet Take 1 tablet every day by oral route. 07/14 completed Not Available Not Available Not Available bupropion HCl XL 150 mg 24 hr tablet, extended release TAKE 1 TABLET BY MOUTH EVERY DAY active Not Available Not Available No t Available topiramate 50 mg tablet TAKE 1 TABLET BY MOUTH TWICE DAILY 07/14 completed Not Available Not Available Not Available Vivitrol 380 mg intramuscul ar suspension, extended release INJECT INTRAMUSC ULARLY today (11/15/19 24) 12/12 completed Not Available Not Available Not Available aripiprazol e 2 mg tablet TAKE 1 TABLET BY MOUTH EVERY EVENING 12/08 completed Not Available Not Available Not Available Vitamins Plus Low Iron 27 mg iron-1 mg tablet TAKE 1 TABLET BY MOUTH EVERY DAY active Not Available Not Available No t Available Narcan 4 mg/actuatio n nasal spray CALL 911. Use one full spray in one nostril one time. Repeat every 2-3 minutes as needed if no or minimal response. 03/26 completed Not Available Not Available Not Available Zepbound 5 mg/0.5 mL subcutaneou s pen injector INJECT 5ML SUBCUTANE OUSLY every week 07/14 completed Not Available Not Available Not Available Zepbound 2.5 mg/0.5 mL subcutaneou s pen injector inject 2.5mg SUBCUTANE OUSLY every week 07/14 completed Not Available Not Available Not Available Vitals Date Recorded Body height Body mass index (BMI) Body weight Body temperature Oxygen saturation Heart rate Systolic And Diastolic Provider Name and Address Organization Details Last Updated DateTime 162.56 cm 42.9 kg/m2 334573. 09 g 98.2 [degF] 99 % 100 /min 126/86 mm[Hg] Natasha Jaya [facility] 17:14:23 Social History Question Answer Notes LastModified by Organizat ion Details LastModified Time Tobacco Smoking Status Current Every Day Smoker RAE BIJALKimberly wheat [facility] 12/13/2023 15:38:31 Do You Have An [...] Or The Highest Degree You Have Received? [id number] Information not available 12/13/2023 Which Of Your Hands Is Dominant? Left Information not available 12/13/2023 What Was The Date Of Your Most Recent Tobacco Screening? 06/16/2025 [email or web address] Information not available 06/16/2025 What Is Your Current Pack Years? 20-29packyear s [email or web address] Information not available 04/28/2025 At What Age Did You Start Smoking Tobacco? 13 [email or web address] Information not available 04/28/2025 How Much Tobacco Do You Smoke? 1 PPD Information not available 04/28/2025 How Many Years Have You Smoked Tobacco? 20 [email or web address] Information not available 04/28/2025 Have You Recently [...] HistoryNo gynecological history recorded. Obstetrics History GPAL:G 1 P 0 0 0 0 Immunizations Vaccine Type Date Status Note Provider Nam e and Address Organization Details Recorded Time Hep B, adolescent or pediatric 0 completed Not Available [facility] 07/14/2025 12:44:28 Hep A, ped/adol, 2 dose 2 completed Not Available [facility] 07/14/2025 12:44:28 Td (adult), 2 Lf tetanus toxoid, preservative free, adsorbed 2 completed Not Available [facility] 07/14/2025 12:44:28 Hep A, ped/adol, 2 dose 9 completed Not Available [facility] 07/14/2025 12:44:28 influenza, split (incl. purified surface antigen) 9 completed Not Available [facility] 07/14/2025 12:44:28 Tdap 2 completed Not Available [facility] 07/14/2025 12:44:28 Tdap 3 completed Not Available [facility] 07/14/2025 12:44:28 Influenza, split virus, quadrivalent, PF 3 completed Not Available [facility] 07/14/2025 12:44:28 Past Encounters Encounter ID Performer Location Encounter Start Date Encounter Closed Date Diagnosis/Indication Diagnosis SNOMED-CT Code Diagnosis ICD10 Code Diagnosis IMO Codes Diagnosis Note [id number] Manda Gonzales MD [facility] ([facility]) [address] [place] [address] 04/28/2025 14:35:52 04/28/2025 15:32:01 Morbid obesity 078061495 E66.01 07837995 - GLP-1 receptor agonists as a potential therapy pending family history clarificat ion. - Obtain relevant family cancer history before initiation . Pain of knee region 1003 278103 M25.562 - Refill Naproxen and Tizanidine previously prescribed for pain and muscle relaxation . [id number] Manda Gonzales MD [facility] ([facility]) [address] [place] [address] 05/27/2025 17:07:52 05/27/2025 17:36:36 Acute asthma 026856031 J45.858 0781748 - Initiate corticoste roids for exacerbati on control.- Maintain current use of respirator y inhalers including Advair and Albuterol. Allergic rhinitis 360603 04 J30.9 4346483020 - Encourage regular Flonase administra tion. - Consider supplement al antihistam ine therapy if necessary. Health Concerns Section Related Observation LastModified by Organization Detai ls LastModified Time None Recorded Concern Status LastModified by Organization Details LastModified Time None Recorded Payers Encounter Date Sequence Insurance Name Policy Number Policy Fernandez Covered Member ID Fernandez Member ID Guarantor Name 05/27/2025 1 [employer] (MEDICAID HMO) Janie Medrano [id number] Janie Medrano OBGyn Episode Ob Episode Information Episode Created Date Number of Fetuses Patient Bloodtype Patient rh Status Prepregnancy Weight lbs Domestic Partner Domestic Partner Phone Father Name Solid Waste Collector Status 06/16/20 25 1 O Positive OPEN Fetus Data First Name Last Name Admitted to NICU Weight (g) Sex Living Outcome Pediatric Complications Fetus ID Race Codes Race Delivery Type [id number] Mahendra Calculation Initial Mahendra Date Initial Exam Date Initial Exam Provider Initial Ultrasound Date Last Menstrual Period Date Ultra Sound Weeks Gestation 06/16/2025 07/01/2025 04/16/2025 8 Eighteen To Twenty Week Mahendra Update Ultra Sound Date Fundal Height At Umbil Quickening Date Ultra Sound Latest Weeks Gestation Final Mahendra Confirmed By Final Mahendra Confirmed Date Final Mahendra Date Ultra Sound Latest Days Gestation 0 dcrase 07/04/2025 02/09/20 26 0 Pre- Flowsheet Flowsheet Date 06/16/2025 Perry Score Blood Edema Fundus Height Fundus Units Glucose Ketones Leukocytes Nitrite Labor Signs Protein Cervic Dilation Cervic Effacement Cervic Station Type Weight in lbs Pre/Post Dialysis Refused Weight 241.015074606501 BP Diastolic BP Location Tested BP Systolic BP Type 90 132 Fetus Heart Rate Present Fetus Movement Comments Flowsheet Date 07/01/2025 Perry Score Blood Edema Fundus Height Fundus Units Glucose Ketones Leukocytes Nitrite Labor Signs Protein Cervic Dilation Cervic Effacement Cervic Station Type Weight in lbs Pre/Post Dialysis Refused BP Diastolic BP Location Tested BP Systolic BP Type Fetus Heart Rate Present Fetus Movement Comments Flowsheet Date 07/14/2025 Perry Score Blood Edema Fundus Height Fundus Units Glucose Ketones Leukocytes Nitrite Labor Signs Protein Cervic Dilation Cervic Effacement Cervic Station Type Weight in lbs Pre/Post Dialysis Refused With clothes 241.087315321979 BP Diastolic BP Location Tested BP Systolic BP Type 82 L arm 118 sitting Fetus Heart Rate Present Fetus Movement Comments Menstrual History Last Menstrual Date Menses Monthly On Bcp Conception Prior Menses Frequency Hcg Plus Date Menarche Onset Age 0904/16/2025 Genetic Screening And Infection History Question Response Note Patient's Age Will Be 35 Years Or Older At Estim ated Date of Delivery true Thalassemia (Macedonian, Sammarinese, Mediterranean, Or Background): MCV < 80 false Neural Tube Defect (Meningomyelocele, Spina Bifi da, Or Anencephaly) false Congenital Heart Defect false Down Syndrome false Sigifredo-Sachs (eg, Voodoo, Cajun, Irish-Zimbabwean) f alse Alesia Disease false Sickle Cell Disease Or Trait () false Hemophilia Or Other Blood Disorders false Muscular Dystrophy false Cystic Fibrosis false Ernie's Chorea false Intellectual Disability/Autism false If Yes, Was Person Tested For Fragile X? false Other Inherited Genetic Or Chromosomal Disorder false Maternal Metabolic Disorder (eg, Type 1 Diabetes , PKU) false Patient Or Baby's Father Had A Child With Defects Not Listed Above false Recurrent Loss, Or A Stillbirth false Medications (including Suppl ements, Vitamins, Herbs, OTC Drugs), Illicit/Recreational Drugs, Alcohol false If Yes, Agent(s) And Strength/Dosage false Any Other Genetic History false Live With Someone With TB Or Exposed To TB false Patient Or Partner Has History Of Genital Herpes false Rash Or Viral Illness Since Last Menstrual Perio d false History Of STD, Gonorrhea, Chlamydia, HPV, Syphi lis false Other Infection History false History of HIV false History of Hepatitis false Prior GBS-infected child false Hemoglobinopathy Or Carrier false Other Structural Defect false Recent Travel History Outside of Country false Mental Retardation/Autism false Plans and Education First Trimester Discussed Date Discussion Item Discussion Note Discuss ed By 07/14/2025 Exercise dcrase 07/14/2025 Illicit/recreational drugs d crase 07/14/2025 Weight gain counseling dcras e 07/14/2025 Use of any medicatio ns (including supplements, vitamins, herbs, or OTC drugs) dcrase 07/14/2025 Avoidance of saunas or hot tubs dcrase 07/14/2025 Tobacco/smoking cess ation counseling (ask, advise, assess, assist, and arrange) dcrase 07/14/2025 Alcohol dcrase 07/14/2025 Travel dcrase Second Trimester Discussed Date Discussion Item Discussion Note Discuss ed By Third Trimester Discussed Date Discussion Item Discussion Note Discuss ed By Delivery Information Delivery Date Delivery Type Labor Anesthesia Weeks Gestation Incision Type Labor Labor Length Hrs Delivered By Post Complications Tubal Sterilization Discharge Date Comments Discharge Information Feeding Method Contraceptive Method Maternal HG B and HCT Levels
--- OUTSIDE RECORDS SUMMARY | 2025-07-24 07:59 | XMS_ITS | Encounter Summary ---
Author Organization [facility] Address [address] [place] [address] Care Team Providers Care Publisher Assistant Name Role Phone Shima Tavarez Primary Care Provider [phone] Encounter Details Date Type Department Care Team (Late st Contact Info) Description 11/04/2003 Emergency [facility] Wilda Georges MD [address] [place] [address] Er, Authorized P NO ADDRESS ON FILE MENSTRUAL DISORDER NOS (Primary Dx) Social History Tobacco Use Types Packs/Day Years Used Date Smoking Tobacco: Never Assessed Comments Unknown Sex and Gender Information Value Date Recorded Sex Assigned at Female 04/12/2024 1:48 AM CDT Legal Sex Female 4:34 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
--- OUTSIDE RECORDS SUMMARY | 2025-07-24 07:59 | XMS_ITS | Encounter Summary ---
Author Organization [facility] Address [address] [place] [address] Care Team Providers Care Cash Posting Representative Name Role Phone Shima Tavarez Primary Care Provider [phone] Encounter Details Date Type Department Care Team (Late st Contact Info) Description 11/19/2003 Emergency [facility] Mitra Lafleur, JUNI [address] [place] [address] Er, Authorized P NO ADDRESS ON FILE MIGRAINE NOS W/O MENTN INTRACTABLE (Primary Dx) Social History Tobacco Use Types Packs/Day Years Used Date Smoking Tobacco: Never Assessed Comments Unknown Sex and Gender Information Value Date Recorded Sex Assigned at Female 04/12/2024 1:48 AM CDT Legal Sex Female 4:34 AM CARE MANAGEMENT COORDINATOR Gender Identity Female 04/12/2024 1:48 AM CDT Sexual Orientation Not on file documented as of this encounter Plan of Treatment Not on file documented as of this encounter Visit Diagnoses Diagnosis Migraine, unspecified, without mention of intractable migraine without mention of status migrainosus- Primary documented in this encounter Care Teams Cash Posting Representative Relationship Specialty Start Date End Date Shima Tavarez FNP [address] [place] [phone] PCP - General 12/28/20 documented as of this encounter
--- OUTSIDE RECORDS SUMMARY | 2025-07-24 07:59 | XMS_ITS | Encounter Summary ---
Author Organization [facility] Address [address] [place] [address] Care Team Providers Care Chief Nurse Executive Name Role Phone Shima Tavarez Primary Care Provider [phone] Encounter Details Date Type Department Care Team (Late st Contact Info) Description 07/28/2002 Emergency [facility] Wilda Georges MD [address] [place] [address] Er, Authorized P NO ADDRESS ON FILE ASTHMA NOS W AC EXACERB (Primary Dx) Social History Tobacco Use Types Packs/Day Years Used Date Smoking Tobacco: Never Assessed Comments Unknown Sex and Gender Information Value Date Recorded Sex Assigned at Female 04/12/2024 1:48 AM CDT Legal Sex Female 4:34 AM RETAIL EVENT COORDINATOR Gender Identity Female 04/12/2024 1:48 AM CDT Sexual Orientation Not on file documented as of this encounter Plan of Treatment Not on file documented as of this encounter Visit Diagnoses Diagnosis Unspecified asthma, with exacerbation- Primary documented in this encounter Care Teams Chief Nurse Executive Relationship Specialty Start Date End Date Shima Tavarez FNP [address] [place] [phone] PCP - General 12/28/20 documented as of this encounter
--- OUTSIDE RECORDS SUMMARY | 2025-07-24 07:59 | XMS_ITS | Encounter Summary ---
Author Organization [facility] Address [address] [place] [address] Care Team Providers Care Market Research Interviewer Name Role Phone Shima Tavarez Dena MEDICAL APPLIANCE MAKER Primary Care Provider +1 -[phone] Encounter Details Date Type Department Care Team (Late st Contact Info) Description 08/13/2007 Outpatient Historical [facility] Family Medicine [address] [place] [address] [place] [address] [place] [address] Social History Tobacco Use Types Packs/Day Years Used Date Smoking Tobacco: Never Assessed Comments Unknown Sex and Gender Information Value Date Recorded Sex Assigned at Female 04/12/2024 1:48 AM CDT Legal Sex Female 4:34 AM 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 MACHINE FEEDER OR OFFBEARER Gender Identity Female 04/12/2024 1:48 AM CDT Sexual Orientation Not on file documented as of this encounter Last Filed Vital Signs Vital Sign Reading Time Taken Comments Blood Pressure 100/72 08/13/2007 9:00 AM STITCHING MACHINE FEEDER OR OFFBEARER Pulse 84 08/13/2007 9:00 AM STITCHING MACHINE FEEDER OR OFFBEARER Temperature - - Respiratory Rate - - Oxygen Saturation - - Inhaled Oxygen Concentration - - Weight 82 kg (180 lb 12 oz) 08/13/2007 9:[address] Height 163.2 cm (5' 4.25 ) 08/13/2007 9:00 AM CS T Body Mass Index 30.78 08/13/2007 9:00 AM STITCHING MACHINE FEEDER OR OFFBEARER Body Mass Index Percentile 95.72% 08/13/2007 9:0 0 AM STITCHING MACHINE FEEDER OR OFFBEARER Growth Chart: [facility] (Girls, 2- 20 Years) documented in this encounter Plan of Treatment Not on file documented as of this encounter Visit Diagnoses Not on filedocumented in this encounter Care Teams Market Research Interviewer Relationship Specialty Start Date End Date Shima Tavarez FNP [address] [place] [phone] PCP - General 12/28/20 documented as of this encounter
--- OUTSIDE RECORDS SUMMARY | 2025-07-24 07:59 | XMS_ITS | Encounter Summary ---
Author Organization [facility] Address [address] [place] [address] Care Team Providers Care Lithographers Printer Name Role Phone Shima Tavarez TRAIN BRAKE OPERATOR Primary Care Provider +1 -[phone] Encounter Details Date Type Department Care Team (Late st Contact Info) Description 04/12/2007 Outpatient Historical [place] [address] [facility] [place] [address] Unspecified Episodic Mood Disorder (CMS/HCC) (Primary Dx) Social History Tobacco Use Types Packs/Day Years Used Date Smoking Tobacco: Never Assessed Comments Unknown Sex and Gender Information Value Date Recorded Sex Assigned at Female 04/12/2024 1:48 AM CDT Legal Sex Female 4:34 AM SOCIAL WORK MSW Gender Identity Female 04/12/2024 1:48 AM CDT [...] INTERFACE SYSTEM DATE OF PREV THC, SEMIQUANT [id number] 0000:0.738317: 0:0 INTERFACE SYSTEM PREV THC SEMIQUANT 247 ng THC equiv/mg Cr INTERFACE SYSTEM THC % OF PREVIOUS Unable to Quantitate <=150 % INTERFACE SYSTEM Comment: A change of 150% or more from the previous value suggests reuse. Result created by Discern Expert 04/24/2007 2:14 PM CDT us Fabby Ashley MD URINE [...] drugs of abuse are available on the [facility] Intranet at: http://[facility] hospitalSaffron Digital/unity/sjmmclab.nsf Select: Drugs of Abuse ? [facility] To inquire about any potential cross-reactivity of [...] MD URINE ORDERABLES Edited Performing Organization Address City/[facility] Co de Phone Number INTERFACE SYSTEM Refer to clinic/hospital department * CANNABINOID SEMIQUANTITATIVE, URINE (04/12/2007 1:02 PM CDT) CANNABINOIDS SEMIQUANT, URINE 219 ng THC equiv/mg Cr INTERFACE SYSTEM 04/12/2007 1:02 PM CDT Fabby Ashley MD URINE ORDERABLES Edited Performing Organization Address [facility] Phone Number INTERFACE SYSTEM Refer to [...] drugs of abuse are available on the [facility] Scale Computinget at: http://[facility] hospitalSaffron Digital/unity/sjmmclab.nsf Select: Drugs of Abuse ? [facility] To inquire about any potential cross-reactivity of [...] disorder documented in this encounter Care Teams Lithographers Printer Relationship Specialty Start Date End Date Shima Tavarez FNP [address] [place] [address] PCP - General 12/28/20 documented as of this encounter
--- OUTSIDE RECORDS SUMMARY | 2025-07-24 07:59 | XMS_ITS | Encounter Summary ---
Author Organization [facility] Address [address] [place] [address] Care Team Providers Care Train Brake Operator Name Role Phone Shima Tavarez Primary Care Provider +1 -[phone] Encounter Details Date Type Department Care Team [...] CDT Legal Sex Female 4:34 AM DIRECTOR CONSUMER Gender Identity Female 04/12/2024 1:48 AM CDT Sexual Orientation Not on file documented as of this encounter Plan of Treatment Not on file documented as of this encounter Visit Diagnoses Diagnosis Streptococcal sore throat- Primary documented in this encounter Care Teams Train Brake Operator Relationship Specialty Start Date End Date Shima Tavarez FNP [address] [place] [address] PCP - General 12/28/20 documented as of this encounter
--- OUTSIDE RECORDS SUMMARY | 2025-07-24 07:59 | XMS_ITS | Encounter Summary ---
Author Organization [facility] Address [address] [place] [address] Care Team Providers Care Purchasing Administrator Name Role Phone Shima Tavarez Primary Care Provider +1 -[phone] Encounter Details Date Type Department Care Team (Late st Contact Info) Description 09/10/2002 Emergency [facility] Wilda Georges MD [address] [place] [address] Er, Authorized P NO ADDRESS ON FILE PNEUMONIA, ORGANISM NOS (Primary Dx) Social History Tobacco Use Types Packs/Day Years Used Date Smoking Tobacco: Never Assessed Comments Unknown Sex and Gender Information Value Date Recorded Sex Assigned at Female 04/12/2024 1:48 AM CDT Legal Sex Female 4:34 AM CHIEF METEOROLOGIST Gender Identity Female 04/12/2024 1:48 AM CDT Sexual Orientation Not on file documented as of this encounter Plan of Treatment Not on file documented as of this encounter Visit Diagnoses Diagnosis Pneumonia, organism unspecified(486)- Primary Pneumonia, organism unspecified documented in this encounter Care Teams Purchasing Administrator Relationship Specialty Start Date End Date Shima Tavarez FNP [address] [place] [phone] PCP - General 12/28/20 documented as of this encounter
--- OUTSIDE RECORDS SUMMARY | 2025-07-24 07:59 | XMS_ITS | Encounter Summary ---
Author Organization [facility] Address [address] [place] [address] Care Team Providers Care Electrical System Specialist Name Role Phone Shima Tavarez Primary Care Provider +1 -[phone] Encounter Details Date Type Department Care Team (Late st Contact Info) Description 07/13/2007 Outpatient Historical [facility] Family Medicine [address] [place] [address] [place] [address] [place] [address] Social History Tobacco Use Types Packs/Day Years Used Date Smoking Tobacco: Never Assessed Comments Unknown Sex and Gender Information Value Date Recorded Sex Assigned at Female 04/12/2024 1:48 AM CDT Legal Sex Female 4:34 AM FLAKE MILLER WHEAT AND OATS Gender Identity Female 04/12/2024 1:48 AM CDT Sexual Orientation Not on file documented as of this encounter Last Filed Vital Signs Vital Sign Reading Time Taken Comments Blood Pressure 118/70 07/13/2007 3:30 PM FLAKE MILLER WHEAT [employer] OATS Pulse 68 07/13/2007 3:30 PM FLAKE MILLER WHEAT AND OATS Temperature - - Respiratory Rate - - Oxygen Saturation - - Inhaled Oxygen Concentration - - Weight 78.9 kg (174 lb) 07/13/2007 3:30 PM FLAKE MILLER WHEAT AND OATS Height - - Body Mass Index - - documented in this encounter Plan of Treatment Not on file documented as of this encounter Visit Diagnoses Not on filedocumented in this encounter Care Teams Electrical System Specialist Relationship Specialty Start Date End Date Shima Tavarez FNP [address] [place] [phone] PCP - General 12/28/20 documented as of this encounter
--- OUTSIDE RECORDS SUMMARY | 2025-07-24 07:59 | XMS_ITS | Encounter Summary ---
Author Organization [facility] Address [address] [place] [address] Care Team Providers Care Tuck Pointer Helper Name Role Phone Shima Tavarez Primary Care Provider +1 -[phone] Encounter Details Date Type Department Care Team (Late st Contact Info) Description 07/16/2007 Outpatient Historical [facility] Family Medicine Danita Belle [address] [place] [address] [place] [address] [place] [address] Social History Tobacco Use Types Packs/Day Years Used Date Smoking Tobacco: Never Assessed Comments Unknown Sex and Gender Information Value Date Recorded Sex Assigned at Female 04/12/2024 1:48 AM CDT Legal Sex Female 4:34 AM MEDIA ANALYST Gender Identity Female 04/12/2024 1:48 AM CDT Sexual Orientation Not on file documented as of this encounter Plan of Treatment Not on file documented as of this encounter Visit Diagnoses Not on filedocumented in this encounter Care Teams Tuck Pointer Helper Relationship Specialty Start Date End Date Shima Tavarez FNP [address] [place] [phone] PCP - General 12/28/20 documented as of this encounter
--- OUTSIDE RECORDS SUMMARY | 2025-07-24 07:59 | XMS_ITS | Encounter Summary ---
Author Organization [facility] Address [address] [place] [address] Care Team Providers Care Uniform Patrol Police Officer Name Role Phone Shima Tavarez Primary Care Provider +1 -[phone] Encounter Details Date Type Department Care Team (Late st Contact Info) Description 07/11/2007 Outpatient Historical [facility] Family Medicine Danita Belle [address] [place] [address] [place] [address] [place] [address] Social History Tobacco Use Types Packs/Day Years Used Date Smoking Tobacco: Never Assessed Comments Unknown Sex and Gender Information Value Date Recorded Sex Assigned at Female 04/12/2024 1:48 AM CDT Legal Sex Female 4:34 AM INSTRUMENT ASSEMBLER Gender Identity Female 04/12/2024 1:48 AM CDT Sexual Orientation Not on file documented as of this encounter Plan of Treatment Not on file documented as of this encounter Visit Diagnoses Not on filedocumented in this encounter Care Teams Uniform Patrol Police Officer Relationship Specialty Start Date End Date Shima Tavarez FNP [address] [place] [address] PCP - General 12/28/20 documented as of this encounter
--- OUTSIDE RECORDS SUMMARY | 2025-07-24 07:59 | XMS_ITS | Encounter Summary ---
Author Organization [facility] Address [address] [place] [address] Care Team Providers Care Scientific Publications Editor Name Role Phone Shima Tavarez Primary Care Provider +1 -[phone] Encounter Details Date Type Department Care Team (Late st Contact Info) Description 03/13/2003 Emergency [facility] Bill Decker MD NO ADDRESS ON FILE Er, Authorized P NO ADDRESS ON FILE LOWER LEG INJURY NOS (Primary Dx) Social History Tobacco Use Types Packs/Day Years Used Date Smoking Tobacco: Never Assessed Comments Unknown Sex and Gender Information Value Date Recorded Sex Assigned at Female 04/12/2024 1:48 AM CDT Legal Sex Female 4:34 AM BIOMATERIALS ENGINEER Gender Identity Female 04/12/2024 1:48 AM CDT Sexual Orientation Not on file documented as of this encounter Plan of Treatment Not on file documented as of this encounter Visit Diagnoses Diagnosis Injury, other and unspecified, knee, leg, ankle, and foot- Primary documented in this encounter Care Teams Scientific Publications Editor Relationship Specialty Start Date End Date Shima Tavarez FNP [address] [place] [phone] PCP - General 12/28/20 documented as of this encounter
--- OUTSIDE RECORDS SUMMARY | 2025-07-24 07:59 | XMS_ITS | Encounter Summary ---
Author Organization [facility] Address [address] [place] [address] Care Team Providers Care Slumber Room Attendant Name Role Phone Shima Tavarez [facility] Primary Care Provider +1 -[phone] Encounter Details Date Type Department Care Team (Late st Contact Info) Description 07/01/2007 Orders Only [facility] Medicine [facility] [address] [place] [address] Grace Miller [facility] [place] [address] Social History Tobacco Use Types Packs/Day Years Used Date Smoking Tobacco: Never Assessed Comments Unknown Sex and Gender Information Value Date Recorded Sex Assigned at Female 04/12/2024 1:48 AM CDT Legal Sex Female 4:34 AM TRANSMISSION BUILDER Gender Identity Female 04/12/2024 1:48 AM CDT Sexual Orientation Not on file documented as of this encounter Progress Notes * Grace Miller MD - 12/13/2007 8:48 AM CDT TIME:07:46 pm PATIENT`S HOME PHONE: PATIENT`S WORK PHONE: PATIENT`S INSURANCE: [employer] CLAIM[employer] Note created by: Grace Miller K [...] on filedocumented in this encounter Care Teams Slumber Room Attendant Relationship Specialty Start Date End Date Shima Tavarez FNP [address] [place] [address] PCP - General 12/28/20 documented as of this encounter
--- OUTSIDE RECORDS SUMMARY | 2025-07-24 07:59 | XMS_ITS | Encounter Summary ---
Author Organization [facility] Address [address] [place] [address] Care Team Providers Care Enterprise Systems Manager Name Role Phone Shima Tavarez HORIZONTAL BORING MILL OPERATOR Primary Care Provider +1 -[phone] Encounter Details Date Type Department Care Team (Late st Contact Info) Description 04/25/2007 Emergency [facility] Shahzda Harmon MD [address] [place] [address] Er, Authorized P NO ADDRESS ON FILE Urinary Tract Infection, Site not Specified (Primary Dx) Social History Tobacco Use Types Packs/Day Years Used Date Smoking Tobacco: Never Assessed Comments Unknown Sex and Gender Information Value Date Recorded Sex Assigned at Female 04/12/2024 1:48 AM CDT Legal Sex Female 4:34 AM HAND BRIM IRONER Gender Identity Female 04/12/2024 1:48 AM CDT [...] MD URINE ORDERABLES Edited Performing Organization Address [facility] de Phone Number INTERFACE SYSTEM Refer to clinic/hospital department * URINALYSIS WITH REFLEX CULTURE (04/25/2007 12:19 PM CDT) Pathologist [facility] URINE CULTURE ORDER Culture ordered INTERFACE SYSTEM [...] MD URINE ORDERABLES Edited Performing Organization Address [facility] Co de Phone Number INTERFACE SYSTEM Refer to clinic/hospital department documented in this encounter Visit Diagnoses Diagnosis Urinary tract infection, site not specified- Primary documented in this encounter Care Teams Enterprise Systems Manager Relationship Specialty Start Date End Date Shima Tavarez FNP [address] [place] [address] PCP - General 12/28/20 documented as of this encounter
--- OUTSIDE RECORDS SUMMARY | 2025-07-24 07:59 | XMS_ITS | Encounter Summary ---
Author Organization [facility] Address [address] [place] [address] Care Team Providers Care Residential Plumber Name Role Phone Shima Tavarez Primary Care Provider +1 -[phone] Encounter Details Date Type Department Care Team (Late st Contact Info) Description 07/29/2002 Outpatient Historical [facility] Family Medicine Dan[place] Belle [email or web address] [facility] [address] [place] [address] [place] [address] [facility] [place] [address] Social History Tobacco Use Types Packs/Day Years Used Date Smoking Tobacco: Never Assessed Comments Unknown Sex and Gender Information Value Date Recorded Sex Assigned at Female 04/12/2024 1:48 AM CDT Legal Sex Female 4:34 AM EXTENSION PROFESSOR Gender Identity Female 04/12/2024 1:48 AM CDT Sexual Orientation Not on file documented as of this encounter Plan of Treatment Not on file documented as of this encounter Visit Diagnoses Not on filedocumented in this encounter Care Teams Residential Plumber Relationship Specialty Start Date End Date Shima Tavarez FNP [address] [place] [phone] PCP - General 12/28/20 documented as of this encounter
--- OUTSIDE RECORDS SUMMARY | 2025-07-24 07:59 | XMS_ITS | Encounter Summary ---
Author Organization [facility] Address [address] [place] [address] Care Team Providers Care Spectral Scientist Name Role Phone Shima Tavarez Primary Care Provider +1 -[phone] Encounter Details Date Type Department Care Team (Late st Contact Info) Description 09/19/2003 Outpatient Historical [facility] Family Medicine [facility] [address] [place] [address] Grace [place] [address] Social History Tobacco Use Types Packs/Day Years Used Date Smoking Tobacco: Never Assessed Comments Unknown Sex and Gender Information Value Date Recorded Sex Assigned at Female 04/12/2024 1:48 AM CDT Legal Sex Female 4:34 AM BUSINESS AFFAIRS MANAGER Gender Identity Female 04/12/2024 1:48 AM CDT Sexual Orientation Not on file documented as of this encounter Plan of Treatment Not on file documented as of this encounter Visit Diagnoses Not on filedocumented in this encounter Care Teams Spectral Scientist Relationship Specialty Start Date End Date Shima Tavarez FNP [address] [place] [phone] PCP - General 12/28/20 documented as of this encounter
--- OUTSIDE RECORDS SUMMARY | 2025-07-24 07:59 | XMS_ITS | Encounter Summary ---
Author Organization [facility] Address [address] [place] [address] Care Team Providers Care Licensing Analyst Name Role Phone Shima Tavarez Primary Care Provider +1 -[phone] Encounter Details Date Type Department Care Team [...] AM CDT Legal Sex Female 4:34 AM PRICING LEAD Gender Identity Female 04/12/2024 1:48 AM CDT Sexual Orientation Not on file documented as of this encounter Plan of Treatment Not on file documented as of this encounter Visit Diagnoses Diagnosis Unspecified asthma, with exacerbation- Primary documented in this encounter Care Teams Licensing Analyst Relationship Specialty Start Date End Date Shima Tavarez FNP [address] [place] [phone] PCP - General 12/28/20 documented as of this encounter
--- OUTSIDE RECORDS SUMMARY | 2025-07-24 08:00 | XMS_ITS | Encounter Summary ---
Author Organization [facility] Address [address] [place] [address] Care Team Providers Care President And Chief Operating Officer Name Role Phone Shima Tavarez Primary Care Provider +1 -[phone] Encounter Details Date Type Department Care Team (Late st Contact Info) Description 01/15/2007 Outpatient Historical [facility] Grace Arri[place] [address] Cough (Primary Dx) Social History Tobacco Use Types Packs/Day Years Used Date Smoking Tobacco: Never Assessed Comments Unknown Sex and Gender Information Value Date Recorded Sex Assigned at Female 04/12/2024 1:48 AM CDT Legal Sex Female 4:34 AM SHOP STEWARD Gender Identity Female 04/12/2024 1:48 AM CDT Sexual Orientation Not on file documented as of this encounter Plan of Treatment Not on file documented as of this encounter Visit Diagnoses Diagnosis Cough- Primary documented in this encounter Care Teams President And Chief Operating Officer Relationship Specialty Start Date End Date Shima Tavarez FNP [address] [place] [phone] PCP - General 12/28/20 documented as of this encounter
--- OUTSIDE RECORDS SUMMARY | 2025-07-24 08:00 | XMS_ITS | Encounter Summary ---
Author Organization [facility] Address [address] [place] [address] Care Team Providers Care Floor Assembler Name Role Phone Shima Tavarez [facility] Primary Care Provider +1 -[phone] Encounter Details Date Type Department Care Team (Late st Contact Info) Description 10/22/2006 Orders Only [facility] Medicine Danita Yoshi [address] [place] [address] [place] [address] [address] [place] [address] Social History Tobacco Use Types Packs/Day Years Used Date Smoking Tobacco: Never Assessed Comments Unknown Sex and Gender Information Value Date Recorded Sex Assigned at Female 04/12/2024 1:48 AM CDT Legal Sex Female 4:34 AM NUCLEAR WEAPONS MECHANICAL SPECIALIST Gender Identity Female 04/12/2024 1:48 AM CDT Sexual Orientation Not on file documented as of this encounter Progress Notes * Desiree Prince MD - 12/21/2007 2:20 PM CDT TIME:08:31 pm PATIENT`S HOME PHONE: PATIENT`S WORK PHONE: PATIENT`S INSURANCE: [facility] Note created by: Desiree Prince SECTION 1: [...] improve. S.P. MEDICATIONS: Call in to Pharmacy [phone] ALBUTEROL SULFATE INHALATION NEBULIZATION SOLUTION (2.5 MG/3ML) 0.083%, 3ml AEROSOL FOUR TIMES INHALATION NEEDED, 100 Dispensed, status: NEW PRESCRIPTION, 10/22/2006. Electronically Signed by: Desiree Prince MD on Sunday, October 22, 2006 documented in this encounter Plan of Treatment Not on file documented as of this encounter Visit Diagnoses Not on filedocumented in this encounter Care Teams Floor Assembler Relationship Specialty Start Date End Date Shima Tavarez FNP [address] [place] [address] PCP - General 12/28/20 documented as of this encounter
--- OUTSIDE RECORDS SUMMARY | 2025-07-24 08:00 | XMS_ITS | Encounter Summary ---
Author Organization [facility] Address [address] [place] [address] Care Team Providers Care Print Designer Name Role Phone Shima Tavarez Primary Care Provider +1 -[phone] Encounter Details Date Type Department Care Team (Late st Contact Info) Description 02/18/2007 Emergency [facility]Y [facility] Wilfredo Cardoso, JUNI [address] [facility] [address] [place] [address] Er, Authorized P NO ADDRESS ON FILE Unspecified Site of Ankle Sprain and Strain (Primary Dx) Social History Tobacco Use Types Packs/Day Years Used Date Smoking Tobacco: Never Assessed Comments Unknown Sex and Gender Information Value Date Recorded Sex Assigned at Female 04/12/2024 1:48 AM CDT Legal Sex Female 4:34 AM CIRCLE EDGER Gender Identity Female 04/12/2024 1:48 AM CDT Sexual Orientation Not on file documented as of this encounter Plan of Treatment Not on file documented as of this encounter Visit Diagnoses Diagnosis Sprain of ankle, unspecified site- Primary documented in this encounter Care Teams Print Designer Relationship Specialty Start Date End Date Shima Tavarez FNP [address] [place] [phone] PCP - General 12/28/20 documented as of this encounter
--- OUTSIDE RECORDS SUMMARY | 2025-07-24 08:00 | XMS_ITS | Clinical Summary ---
Author Organization [employer] Address [address] [place] [address] Care Team Providers Care Non Food Receiving Clerk Name Role Phone Shima Tavarez Dena GAONAP Primary Care Provider +1 -[phone] Allergies No known active allergies Medications venlafaxine (EFFEXOR) 75 mg tablet Take 150 mg by mouth daily at bedtime. Active montelukast (SINGULAIR) 10 mg tablet Take 10 mg by mouth daily at bedtime. Active fluticasone propionate (FLONASE) 50 mcg/spray [place], Suspension nasal inhaler Administer 2 Sprays in [...] 19+ 3-dose series) 08/31 HPV/Cotest (21-29) 2011 CERVICAL CANCER SCREENING 2020 HPV/Cotest (30-65) 2020 PAP SMEAR 2020 INFLUENZA VACCINE (#1) 2025 HPV VACCINES (No Doses Required) Completed Care Teams Non Food Receiving Clerk Relationship Specialty Start Date End Date Shima Tavarez FNP [address] [place] [phone] PCP - General Nurse Practitioner Family 12/28/20
--- OUTSIDE RECORDS SUMMARY | 2025-07-24 08:00 | XMS_ITS | Encounter Summary ---
Author Organization [facility] Address [address] [place] [address] Care Team Providers Care Lace Tearing Supervisor Name Role Phone Shima Tavarez [facility] Primary Care Provider +1 -[phone] Encounter Details Date Type Department Care Team (Late st Contact Info) Description 11/14/2006 Orders Only [facility] Medicine [facility] [address] [place] [address] [place] [address] Social History Tobacco Use Types Packs/Day Years Used Date Smoking Tobacco: Never Assessed Comments Unknown Sex and Gender Information Value Date Recorded Sex Assigned at Female 04/12/2024 1:48 AM CDT Legal Sex Female 4:34 AM BUY BOAT OPERATOR Gender Identity Female 04/12/2024 1:48 AM CDT Sexual Orientation Not on file documented as of this encounter Progress Notes * Grace Miller MD - 12/20/2007 4:43 PM CDT TIME:08:41 am PATIENT`S HOME PHONE: PATIENT`S WORK PHONE: PATIENT`S INSURANCE: [facility] WHO TOOK THE CALL: Lily Knox A GENERAL INFORMATION PATIENT STATUS: Established Patient. PCP: stiven. ALTERNATIVE PHONE NUMBER: [phone] WHO CALLED: Patient`s mother called. PHARMACY NUMBER: [phone] SECTION 1: REQUESTED ACTION gopal 11/14/06 at [...] on filedocumented in this encounter Care Teams Lace Tearing Supervisor Relationship Specialty Start Date End Date Shima Tavarez FNP [address] [place] [address] PCP - General 12/28/20 documented as of this encounter
--- OUTSIDE RECORDS SUMMARY | 2025-07-24 08:00 | XMS_ITS | Encounter Summary ---
Author Organization [facility] Address [address] [place] [address] Care Team Providers Care Scow Captain Name Role Phone Shima Tavarez Primary Care Provider +1 -[phone] Encounter Details Date Type Department Care Team (Late st Contact Info) Description 01/13/2007 Emergency [facility] Wilda Georges MD [address] [place] [address] Er, Authorized P NO ADDRESS ON FILE Bronchitis, not Specified as Acute or Chronic (Primary Dx) Social History Tobacco Use Types Packs/Day Years Used Date Smoking Tobacco: Never Assessed Comments Unknown Sex and Gender Information Value Date Recorded Sex Assigned at Female 04/12/2024 1:48 AM CDT Legal Sex Female 4:34 AM CLOTH PRESSER Gender Identity Female 04/12/2024 1:48 AM CDT Sexual Orientation Not on file documented as of this encounter Plan of Treatment Not on file documented as of this encounter Visit Diagnoses Diagnosis Bronchitis, not specified as acute or chronic- Primary documented in this encounter Care Teams Scow Captain Relationship Specialty Start Date End Date Shima Tavarez FNP [address] [place] [address] PCP - General 12/28/20 documented as of this encounter
--- OUTSIDE RECORDS SUMMARY | 2025-07-24 08:00 | XMS_ITS | Encounter Summary ---
Author Organization [facility] Address [address] [place] [address] Care Team Providers Care Time Study Technologist Name Role Phone Shima Tavarez Primary Care Provider +1 -[phone] Encounter Details Date Type Department Care Team [...] AM CDT Legal Sex Female 4:34 AM CONCRETE WALL GRINDER OPERATOR Gender Identity Female 04/12/2024 1:48 AM CDT Sexual Orientation Not on file documented as of this encounter Plan of Treatment Not on file documented as of this encounter Visit Diagnoses Diagnosis Ingrowing nail- Primary documented in this encounter Care Teams Time Study Technologist Relationship Specialty Start Date End Date Shima Tavarez FNP [address] [place] [address] PCP - General 12/28/20 documented as of this encounter
--- OUTSIDE RECORDS SUMMARY | 2025-07-24 08:00 | XMS_ITS | Encounter Summary ---
Author Organization [facility] Address [address] [place] [address] Care Team Providers Care Statistician Mathematical Name Role Phone Shima Tavarez Primary Care Provider +1 -[phone] Encounter Details Date Type Department Care Team (Late st Contact Info) Description 10/15/2006 Emergency [facility] Dave Tiwari MD NO ADDRESS ON FILE Er, Authorized P NO ADDRESS ON FILE Unspecified Sinusitis (Chronic) (Primary Dx) Social History Tobacco Use Types Packs/Day Years Used Date Smoking Tobacco: Never Assessed Comments Unknown Sex and Gender Information Value Date Recorded Sex Assigned at Female 04/12/2024 1:48 AM CDT Legal Sex Female 4:34 AM MGMT ANALYST Gender Identity Female 04/12/2024 1:48 AM CDT Sexual Orientation Not on file documented as of this encounter Plan of Treatment Not on file documented as of this encounter Visit Diagnoses Diagnosis Unspecified sinusitis (chronic)- Primary documented in this encounter Care Teams Statistician Mathematical Relationship Specialty Start Date End Date Shima Tavarez FNP [address] [place] [address] PCP - General 12/28/20 documented as of this encounter
--- OUTSIDE RECORDS SUMMARY | 2025-07-24 08:00 | XMS_ITS | Encounter Summary ---
Author Organization [facility] Address [address] [place] [address] Care Team Providers Care Chairman & Ceo Name Role Phone Shima Tavarez Primary Care Provider +1 -[phone] Encounter Details Date Type Department Care Team (Late st Contact Info) Description 01/05/2007 Outpatient Historical [facility] Family Medicine Danita Belle [address] [place] [address] [place] [address] [address] [place] [address] Social History Tobacco Use Types Packs/Day Years Used Date Smoking Tobacco: Never Assessed Comments Unknown Sex and Gender Information Value Date Recorded Sex Assigned at Female 04/12/2024 1:48 AM CDT Legal Sex Female 4:34 AM EPIC DIRECTOR Gender Identity Female 04/12/2024 1:48 AM CDT Sexual Orientation Not on file documented as of this encounter Plan of Treatment Not on file documented as of this encounter Visit Diagnoses Not on filedocumented in this encounter Care Teams Chairman & Ceo Relationship Specialty Start Date End Date Shima Tavarez FNP [address] [place] [phone] PCP - General 12/28/20 documented as of this encounter
--- OUTSIDE RECORDS SUMMARY | 2025-07-24 08:00 | XMS_ITS | Encounter Summary ---
Author Organization [facility] Address [address] [place] [address] Care Team Providers Care Histology Tech Name Role Phone Shima Tavarez Primary Care Provider +1 -[phone] Encounter Details Date Type Department Care Team [...] AM CDT Legal Sex Female 4:34 AM TRANSPLANT IMMUNOLOGIST Gender Identity Female 04/12/2024 1:48 AM CDT Sexual Orientation Not on file documented as of this encounter Plan of Treatment Not on file documented as of this encounter Visit Diagnoses Not on filedocumented in this encounter Care Teams Histology Tech Relationship Specialty Start Date End Date Shima Tavarez FNP [address] [place] [phone] PCP - General 12/28/20 documented as of this encounter
--- OUTSIDE RECORDS SUMMARY | 2025-07-24 08:00 | XMS_ITS | Encounter Summary ---
Author Organization [facility] Address [address] [place] [address] Care Team Providers Care Yard Supervisor Name Role Phone Shima Tavarez Primary Care Provider +1 [phone] Encounter Details Date Type Department Care Team (Late st Contact Info) Description 01/15/[address] [facility] Family Medicine Danita Belle [address] [place] [address] [place] [address] [place] [address] Social History Tobacco Use Types Packs/Day Years Used Date Smoking Tobacco: Never Assessed Comments Unknown Sex and Gender Information Value Date Recorded Sex Assigned at Female 04/12/2024 1:48 AM CDT Legal Sex Female 4:34 AM PUBLICITY MANAGER Gender Identity Female 04/12/2024 1:48 AM CDT Sexual Orientation Not on file documented as of this encounter Plan of Treatment Not on file documented as of this encounter Visit Diagnoses Not on filedocumented in this encounter Care Teams Yard Supervisor Relationship Specialty Start Date End Date Shima Tavarez FNP [address] [place] [phone] PCP - General 12/28/20 documented as of this encounter
--- OUTSIDE RECORDS SUMMARY | 2025-07-24 08:00 | XMS_ITS | Encounter Summary ---
Author Organization [facility] Address [address] [place] [address] Care Team Providers Care Solar Installation Foreman Name Role Phone Shima Tavarez Primary Care Provider +1 -[phone] Encounter Details Date Type Department Care Team (Late st Contact Info) Description 01/05/2007 Outpatient Historical [facility] Family Medicine Danita Belle [address] [place] [address] [place] [address] [address] [place] [address] Social History Tobacco Use Types Packs/Day Years Used Date Smoking Tobacco: Never Assessed Comments Unknown Sex and Gender Information Value Date Recorded Sex Assigned at Female 04/12/2024 1:48 AM CDT Legal Sex Female 4:34 AM DATA EXAMINATION CLERK Gender Identity Female 04/12/2024 1:48 AM CDT Sexual Orientation Not on file documented as of this encounter Plan of Treatment Not on file documented as of this encounter Visit Diagnoses Not on filedocumented in this encounter Care Teams Solar Installation Foreman Relationship Specialty Start Date End Date Shima Tavarez FNP [address] [place] [phone] PCP - General 12/28/20 documented as of this encounter
--- OUTSIDE RECORDS SUMMARY | 2025-07-24 08:00 | XMS_ITS | Clinical Summary ---
Author Organization [employer] Address [address] [place] [address] Care Team Providers Care Research Methods Instructor Name Role Phone Shima Tavarez Dena SECURITIES LENDING TRADER Primary Care Provider +1 -[phone] Allergies Active Allergy Reactions Criticality Noted Date [...] 8 Active fluticasone propionate (FLONASE) 50 mcg/spray [place], Suspension nasal inhaler Administer 2 Sprays in [...] bedtime. 4 Active naloxone (NARCAN) 4 mg/spray [place], Non-Aerosol EMERGENCY USE ONLY: Administer 1 spray [...] Encounters Date Type Department Care Team Description 07/15/2025 External [facility] ABSTRACTION Provider, Abstract 05/28/2025 External Device Data [facility] ABSTRACTION Provider, [...] Date Smoking Tobacco: Every Day Cigarettes 1 22 Started: 2003 Smokeless Tobacco: Never Tobacco Cessation:Ready [...] AM CDT Legal Sex Female 4:34 AM AVIONICS TECHNICIAN Gender Identity Female 04/12/2024 1:48 AM CDT Sexual Orientation Not on file Occupation Industry Job Start Date Job End Date Not on file Not on file Not on file Not on file Last Filed Vital Signs Vital Sign Reading Time Taken Comments Blood Pressure 160/100 08/07/2024 10:44 AM AVIONICS TECHNICIAN Pulse 84 06/17/2024 3:50 PM AVIONICS TECHNICIAN Temperature 36.3 C (97.3 F) 06/17/2024 3:18 PM AVIONICS TECHNICIAN Respiratory Rate 22 06/17/2024 3:10 PM AVIONICS TECHNICIAN Oxygen Saturation 95% 06/17/2024 3:5 0 PM AVIONICS TECHNICIAN Inhaled Oxygen Concentration - - Weight 109.3 kg (241 lb) 08/07/2024 10: 44 AM AVIONICS TECHNICIAN pt reported, unable to stand on scale Height 162.6 cm (5' 4 ) 08/07/2024 10:4 4 AM AVIONICS TECHNICIAN Body Mass Index 41.37 08/07/2024 10:44 AM AVIONICS TECHNICIAN Plan of Treatment Health Maintenance Due Date [...] 09/2007, 08/13/2007 Medical Devices Implanted Type Area Security Ambassador Device Identifier Shelf Expiration Date Model / Serial / Lot Tightrope Ii Btb Ib W/ Flipcutter [id number] - [id number] Implanted:Qty: 1 on 12/28/2023 by Dave Pinzon III, MD at [facility] Left: Knee [employer] [id number] 07/30/2027 AR-1288BT BIB-FC / / [id number] [place] 7.0mm Tenodesis Bio Com Swiveloc [id number] - [id number] Implanted:Qty: 1 on 12/28/2023 by Dave Pinzon III, MD at [facility] Left: Knee [employer] [id number] 10/28/2025 AR-1662BC C-7 / / [id number] [place] 6.25mm Tenodesis Bio Com Swiveloc Ar-1662bc - [id number] Implanted:Qty: 1 on 12/28/2023 by Dave Pinzon III, MD at [facility] Left: Knee [employer] [id number] 07/30/2027 AR-1662BC / / [id number] [place] 7.0mm Tenodesis Bio Com Swiveloc [id number] - [id number] Implanted:Qty: 1 on 12/28/2023 by Dave Pinzon III, MD at [facility] Left: Knee [employer] [id number] 03/30/2025 AR-1662BC C-7 / / [id number] Tightrope Ii Abs Open He-[id number] - [id number] Implanted:Qty: 1 on 12/28/2023 by Dave Pinzon III, MD at [facility] Left: Knee [employer] [id number] 12/29/2027 AR-1588TN -21 / / [id number] Tightrope Ii Btb Ib Fibertape Wu-[id number] - [id number] Implanted:Qty: 1 on 12/28/2023 by Dave Pinzon III, MD at [facility] Left: Knee [employer] [id number] 08/30/2028 AR-1588BT B-IB / / [id number] Cartridge Ceterix Novastitch + 2-0 Ctx-R001 - [id number] Implanted:Qty: 1 on 12/28/2023 by Dave Pinzon III, MD at [facility] Left: Knee [employer] 09/07/2025 CTX-R001 / / [id number] Cartridge [employer]ix Novastitch + 2-0 Ctx-R001 - [id number] Implanted:Qty: 1 on 12/28/2023 by Dave Pinzon III, MD at [facility] Left: Knee [employer] 09/15/2025 CTX-R001 / / [id number] Cartridge [employer] Novastitch + 2-0 Ctx-R001 - [id number] Implanted:Qty: 1 on 12/28/2023 by Dave Pinzon III, MD at [facility] Left: Knee [employer] 09/27/2025 CTX-R001 / / [id number] [place] Suture 4.75mm Secondary Fixation W/ Swiveloc Ar-1593-Bc - [id number] Implanted:Qty: 1 on 12/28/2023 by Dave Pinzon III, MD at [facility] Left: Knee [employer] [id number] 06/29/2027 AR-1593-B C / / [id number] Button Tightrope Abs 11mm Rnd Concave Nm-6532gx-[id number] - [id number] Implanted:Qty: 1 on 12/28/2023 by Dave Pinzon III, MD at [facility] Left: Knee [employer] 07/30/2028 AR-1588TB -31B / / [id number] [place] Suture 4.75mm Secondary Fixation W/ Swiveloc Ar-1593-Bc - [id number] Implanted:Qty: 1 on 06/17/2024 by Dave Pinzon III, MD at [facility] Left: Knee [employer] [id number] 12/29/2027 AR-1593-B C / / [id number] Screw Bc If 7x20mm Vented Ar-4020c-07 - [id number] Implanted:Qty: 1 on 06/17/2024 by Dave Pinzon III, MD at [facility] Left: Knee [employer] [id number] 11/28/2027 AR-4020C- 07 / / [id number] Screw Bc If 8x20mm Vented Ar-4020c-08 - [id number] Implanted:Qty: 1 on 06/17/2024 by Dave Pinzon III, MD at [facility] Left: Knee [employer] [id number] 02/28/2028 AR-4020C- 08 / / [id number] Allograft Tendon Speedgraft Spd-001 - [id number] Implanted:Qty: 1 on 12/28/2023 by Dave Pinzon III, MD at [facility] Left: Knee [employer] [facility] 12/14/2025 SPD-001 / [id number] / 2025-11-28 7 Allograft Graftlink Tendon Grx-001 - [id number] Implanted:Qty: 1 on 12/28/2023 by Dave Pinzon III, MD at [facility] Left: Knee [employer] [facility] 02/04/2025 GRX-001 / / [id number] Explanted Type Area Security Ambassador Device Identifier Shelf Expiration Date Model / Serial / Lot [place] 7.0mm Tenodesis Bio Com Swiveloc [id number] - [id number] Explanted:Qty: 1 on 12/28/2023 by Dave Pinzon III, MD at [facility] Left: Knee [employer] [id number] 10/28/2025 AR-1662BC C-7 / / [id number] Passer Suture Novastitch C[employer]ix Ctx-A003 - [id number] Explanted:Qty: 1 on 12/28/2023 by Dave Pinzon III, MD at [facility] Left: Knee [employer] 09/03/2025 CTX-A003 / / [id number] Procedures Procedure Name Priority Date/Time Associated Diagnosis Comments CERV/VAG CYTOPATH, THIN PREP GLASS SETTER AND HPV Routine 09/10/2012 7:58 PM AVIONICS TECHNICIAN Routine gynecological examination from Last 3 Months or Most Recently Relevant to Health Maintenance Results * CERV/VAG CYTOPATH, THIN PREP GLASS SETTER AND HPV (09/10/2012 7:58 PM AVIONICS TECHNICIAN) CLINICAL INFORMATION Information not provided [facility] SOURCE Endocervix [facility] PREV PAP: INFORMATION NOT PROVIDED [facility] LAST MENSTRUAL PERIOD INFORMATION NOT PROVIDED [facility] PREV BX: INFORMATION NOT PROVIDED [facility] PAP INTERP Negative for intraepithelial lesion or malignancy. [facility] Comment: Performed by [facility], [address] [place] [address] Social Work Coordinator Pap Comment This case could not be evaluated with computer assisted technology. The slide was manually screened according to routine procedures. [facility] ADEQUACY: Satisfactory for evaluation. Endocervical/mckeon sformation zone component present. Age and/or menstrual status not provided [facility] CANOPY STRINGER: RODRIGO COUCH(ASCP) [facility] HPV HIGH RISK DNA DETECTION NOT DETECTED NOT DETECTED [facility] Comment: Tested for high risk types 16,18,31,33,35,39,45,51,52, 56,58,59,68. The analytical performance characteristics of this assay, when used to test SurePath or vaginal specimens, have been determined by [facility]. Methodology: Hybrid Capture with Signal Amplification. Lab test performed by: [facility] [address] [place] [address] AMADOR MCKEON DO P Endocervical 09/10/2012 7:58 PM AVIONICS TECHNICIAN 09/10/2012 8:37 PM AVIONICS TECHNICIAN Comment:ENDOCERVICAL Holly Wade DO PATHOLOGY/CYTOLOGY ORDERABLES Ed ited [facility] CLIA# [id number] [address] [place] [address] from Last 3 Months or Most Recently Relevant to Health Maintenance Insurance [facility] MEDICAID RX INFOCROSSING Medicaid * Guarantor: Geoff Medrano Account Type Relation to Patient Date of Phone Billing Address Personal/Family Father 1960 [phone] (Home) [address] [place] [address] Advance Directives For more information, please contact: [phone] * Full Code (Latest Code Status on File) Date Activated Date Inactivated Comments 06/17/2024 9:30 AM 06/17/2024 6:12 PM * Full Code Date Activated Date Inactivated Comments 01/23/2024 1:27 PM 01/23/2024 7:01 PM * Full Code Date Activated Date Inactivated Comments 12/28/2023 10:01 AM 12/29/2023 5:58 PM * Full Code Date Activated Date Inactivated Comments 03/22/2010 2:07 PM 03/23/2010 2:32 AM Care Teams Research Methods Instructor Relationship Specialty Start Date End Date Shima Tavarez FNP [address] [place] [address] PCP - General 12/28/20
--- OUTSIDE RECORDS SUMMARY | 2025-07-24 08:00 | XMS_ITS | Encounter Summary ---
Author Organization [facility] Address [address] [place] [address] Care Team Providers Care Manager Behavioral Name Role Phone Shima Tavarez [facility] Primary Care Provider +1 -[phone] Encounter Details Date Type Department Care Team (Late st Contact Info) Description 01/01/2007 Orders Only [facility] Medicine Danita Yoshi [address] [place] [address] [place] [address] [address] [place] [address] Social History Tobacco Use Types Packs/Day Years Used Date Smoking Tobacco: Never Assessed Comments Unknown Sex and Gender Information Value Date Recorded Sex Assigned at Female 04/12/2024 1:48 AM CDT Legal Sex Female 4:34 AM VETERINARY EPIDEMIOLOGIST Gender Identity Female 04/12/2024 1:48 AM CDT Sexual Orientation Not on file documented as of this encounter Progress Notes * Desiree Prince MD - 12/19/2007 2:07 PM CDT TIME:01:12 pm PATIENT`S HOME PHONE: PATIENT`S WORK PHONE: PATIENT`S INSURANCE: [facility] WHO TOOK THE CALL: Zohreh Dorsey M GENERAL INFORMATION PATIENT STATUS: Established Patient. PCP: Suresh. PCP: Paul. ALTERNATIVE PHONE NUMBER: [phone] WHO CALLED: Patient`s mother called. Christy or sister Mirta CURRENT ALLERGY LIST: [facility] NUMBER: [phone] SECTION 1: REQUESTED ACTION [email or web address] 01/01/07 at 01:13 pm: wants to speak to nurse...states its personal RN/COOK STARCH RESPONSE: orion 01/01/07 at 02:30 pm Pt [...] to give work excuse fortoday? (Abisai - [phone]) SECTION 3: DOCTOR`S RESPONSE: azam 01/01/07 at [...] filedocumented in this encounter Care Teams Manager Behavioral Relationship Specialty Start Date End Date Shima Tavarez FNP [address] [place] [address] PCP - General 12/28/20 documented as of this encounter
--- OUTSIDE RECORDS SUMMARY | 2025-07-24 08:00 | XMS_ITS | Encounter Summary ---
Author Organization [facility] Address [address] [place] [address] Care Team Providers Care Medical Art Therapist Name Role Phone Shima Tavarez Primary Care Provider +1 -[phone] Encounter Details Date Type Department Care Team (Late st Contact Info) Description 06/26/2002 Outpatient Historical [facility] Family Medicine [facility] [address] [place] [address] [place] [address] [place] [address] Social History Tobacco Use Types Packs/Day Years Used Date Smoking Tobacco: Never Assessed Comments Unknown Sex and Gender Information Value Date Recorded Sex Assigned at Female 04/12/2024 1:48 AM CDT Legal Sex Female 4:34 AM FURNACE SETTER Gender Identity Female 04/12/2024 1:48 AM CDT Sexual Orientation Not on file documented as of this encounter Plan of Treatment Not on file documented as of this encounter Visit Diagnoses Not on filedocumented in this encounter Care Teams Medical Art Therapist Relationship Specialty Start Date End Date Shima Tavarez FNP [address] [place] [address] PCP - General 12/28/20 documented as of this encounter
--- OUTSIDE RECORDS SUMMARY | 2025-07-24 08:00 | XMS_ITS | Encounter Summary ---
Author Organization [facility] Address [address] [place] [address] Care Team Providers Care Database Programmer Analyst Name Role Phone Shima Tavarez [facility] Primary Care Provider [phone] Encounter Details Date Type Department Care Team (Late st Contact Info) Description 01/15/2007 Orders Only [facility] Family Medicine [address] [address] [facility] [address] [place] [address] [place] [address] [place] [address] Social History Tobacco Use Types Packs/Day Years Used Date Smoking Tobacco: Never Assessed Comments Unknown Sex and Gender Information Value Date Recorded Sex Assigned at Female 04/12/2024 1:48 AM CDT Legal Sex Female 4:34 AM CONTENT ADMINISTRATOR Gender Identity Female 04/12/2024 1:48 AM CDT [...] Room visit.quest HISTORY: Mom present. Seen at [facility] ED 2 days ago for 2 day [...] NEW PRESCRIPTION, 01/15/2007. LAB ORDERS: Order number: [id number] Test Ordered: PULSE OXIMETRY [id number] Order number: [id number] Test Ordered: NEBULIZER TREATMENT 54582 786.2-COUGH ASSESSMENT: Continue Keflex from ED. Re-eval CXR. LAB ORDERS: Order number: [id number] Test Ordered: XRAY CHEST (2 VIEWS) [id number]-[id number] [...] on filedocumented in this encounter Care Teams Database Programmer Analyst Relationship Specialty Start Date End Date Shima Tavarez FNP [address] [place] [address] PCP - General 12/28/20 documented as of this encounter
--- OUTSIDE RECORDS SUMMARY | 2025-07-24 08:00 | XMS_ITS | Continuity of Care Document ---
Author Organization [facility] Mehrdad Kebede [facility], L.LJonyCJony, [facility] ([facility]) Address [address] [place] [address] Care Team Providers Care Customer Account Technician Name Role Phone MANDA GONZALES Primary Care Provider [phone] Assessment Encounter Date Assessment Date Assessment LastModified by Organization Details LastModified Time 07/14/2025 07/14/2025 34-year-old female with history of nicotine dependence presenting with requests for smoking cessation assistance and evaluation of left knee pain. Her and past knee issues are integral to current management consideration s. [id number] Not available 07/14/2025 13:14:40 Plan of Treatment Reminders Order Date Submit [...] Not available Not available Not available Lab RPR (rapid plasma reagin) , serum 2024 [employer] [facility], [address] [place] [address], [address], [place], [address], 07/16/2025 23:47:01 CBC w/ auto diff 2024 [employer] [facility], [address] [place] [address], [address], [place], [address], 07/16/2025 23:47:00 hepatit is C virus Ab, serum 2024 [employer] [facility], [address] [place] [address], [address], [place], [address], 07/16/2025 23:47:00 HIV 1+2 Ab + HIV1 p24 Ag, quantit ative immunoa ssay, serum 2024 [employer] [facility], [address] [place] [address], [address], [place], [address], 07/16/2025 23:46:59 antibod y screen, serum or plasma 2024 0[address] [employer] [place] [address], [address], [place], [address], 07/16/2025 23:47:02 abo group + rh type, blood 2024 [employer] [facility], [address] [place] [address], [address], [place], [address], 07/16/2025 23:47:02 HBsAg (hepati tis B surface Ag), serum 2024 [facility], [address] [place] [address], [address], [place], [address], 07/16/2025 23:47:00 rubella igg Ab screen, serum 2024 [facility], [address] [place] [address], [address], [place], [address], 07/16/2025 23:47:01 urinaly sis, complet e 2024 [facility], [address] [place] [address], [address], [place], [address], 07/16/2025 23:46:59 culture , urine 2024 [facility], [address] [place] [address], [address], [place], [address], 07/16/2025 23:47:03 drug screen, urine 2024 [facility], [address] [place] [address], [address], [place], [address], 07/16/2025 23:47:02 CT + NG RNA, PCR, unspeci fied specime n 2024 [facility], [address] [place] [address], [address], [place], [address], 07/16/2025 23:47:01 Referral None recorde d. Procedures None recorde d. Surgeries None recorde d. Imaging None recorde d. Medication Orders nicotin e 21 mg/24 hr daily transde rmal patch 2024 [facility], [address] [place] [address], [address], 07/15/2025 10:52:24 nicotin e 14 mg/24 hr daily transde rmal patch 2024 [facility], [facility] [place], [address], 07/14/2025 13:22:20 nicotin e 7 mg/24 hr daily transde rmal patch 2024 [facility], [facility] [place], [address], 07/14/2025 13:22:19 Patient TargetsNo targets recorded. Patient Instructions Encounter Date Encounter Id Patient Instructions Last Modified By Organization Details Last Modified Time 07/14/2025 [id number] - Use nicotine patches as directed to aid in quitting smoking. - Avoid smoking while using nicotine patches. - Monitor knee pain and use a knee brace as recommended. - Modify activities to prevent knee strain. - Report any new symptoms or concerns promptly. - Attend follow-up appointments for monitoring. [email or web address] Not available 07/14/2025 13:14:43 During the visit , we extensively discussed smoking cessation techniques, focusing on a structured approach involving nicotine patches. The patient understands the importance of abstaining from smoking to benefit her and development. We reviewed knee pain management strategies, prioritizing non-surgical options given her clinical history. We addressed her concern about potential future knee surgeries. She was advised to modify activity to prevent further strain. All procedures, interventions, and their likely outcomes were explained comprehensively, including the use of supplementary nicotine lozenges or gum if indicated. [id number] Not available 07/14/2025 13:14:43 Reason for Referral None Reported. Results Created Date Observation Date Name Description Value Unit Range Abnormal Flag Note LastModifiedBy Organization Detail LastModifiedTime 06/16/20 25 06/17/2025 HCG, TOTAL , [place] [address] mIU/m L high Refer ence Range Nonpr egnan t or preme nopau roberto <5 Postm enopa usal <10 Value s from diffe rent assay metho ds may vary. The use of this assay to monit or or to diagn ose patie nts with cance r or any condi tion unrel ated to pregn jayjay has not been clear ed or appro aleisha by the FDA or the manuf actur er of the assay . Not Available [employer] [employer] [address] [place], [address], 06/17/2025 09:08:32 06/20/2006/21/2025 HCG, TOTAL , [place] [address] mIU/m L high Refer ence Range Nonpr egnan t or preme nopau roberto <5 Postm enopa usal <10 Value s from diffe rent assay metho ds may vary. The use of this assay to monit or or to diagn ose patie nts with cance r or any condi tion unrel ated to pregn jayjay has not been clear ed or appro aleisha by the FDA or the [facility] act[facility] er of the assay . Not Available [employer] [address] [place], [address], 06/21/2025 06:41:40 07/14/2007/16/2025 HIV 1/2 ANTIG EN/AN TIBOD Y,FOU RTH GENER ATION W/RFL HIV final interpretati on HIV NEGATI VE normal HIV-1 antig en and HIV-1 /HIV- 2 antib odies were not detec lawson. There is no labor atory evide nce of HIV infec tion. Not Available [facility] [address] [place], [address], 07/16/2025 23:46:59 07/14/2007/16/2025 HIV 1/2 ANTIG EN/AN TIBOD Y,FOU RTH GENER ATION W/RFL HIV Ag/Ab, screen NON-RE ACTIVE non-re active normal Not Available [facility] [address], [address], 07/16/2025 23:46:59 07/14/20 25 07/16/2025 URINA LYSIS , COMPL ETE color YELLOW yellow normal Not Available [address], [address], 07/16/2025 23:46:59 07/14/2007/16/2025 URINA LYSIS , COMPL ETE appearance CLEAR clear normal Not Available [address], [address], 07/16/2025 23:46:59 07/14/2007/16/2025 URINA LYSIS , COMPL ETE specific gravity 1.015 1.001- 1.035 normal Not Available [address], [address], 07/16/2025 23:46:59 07/14/2007/16/2025 URINA LYSIS , COMPL ETE pH 5.5 5.0-8. 0 normal Not Available [address], [address], 07/16/2025 23:46:59 07/14/20 25 07/16/2025 URINA LYSIS , COMPL ETE glucose NEGATI VE negati ve normal Not Available [address], [address], 07/16/2025 23:46:59 07/14/2007/16/2025 URINA LYSIS , COMPL ETE bilirubin NEGATI VE negati ve normal Not Available [address], [address], 07/16/2025 23:46:59 07/14/2007/16/2025 URINA LYSIS , COMPL ETE ketones NEGATI VE negati ve normal Not Available [address], [address], 07/16/2025 23:46:59 07/14/20 25 07/16/2025 URINA LYSIS , COMPL ETE occult blood NEGATI VE negati ve normal Not Available [address], [address], 07/16/2025 23:46:59 07/14/20 25 07/16/2025 URINA LYSIS , COMPL ETE protein NEGATI VE negati ve normal Not Available [address], [address], 07/16/2025 23:46:59 07/14/20 25 07/16/2025 URINA LYSIS , COMPL ETE nitrite NEGATI VE negati ve normal Not Available [address], [address], 07/16/2025 23:46:59 07/14/20 25 07/16/2025 URINA LYSIS , COMPL ETE leukocyte esterase NEGATI VE negati ve normal Not Available [address], [address], 07/16/2025 23:46:59 07/14/20 25 07/16/2025 URINA LYSIS , COMPL ETE WBC NONE SEEN /hpf < or = 5 normal Not Available [address], [address], 07/16/2025 23:46:59 07/14/20 25 07/16/2025 URINA LYSIS , COMPL ETE RBC NONE SEEN /hpf < or = 2 normal Not Available [address], [address], 07/16/2025 23:46:59 07/14/20 25 07/16/2025 URINA LYSIS , COMPL ETE squamous epithelial cells NONE SEEN /hpf < or = 5 normal Not Available [address], [address], 07/16/2025 23:46:59 07/14/20 25 07/16/2025 URINA LYSIS , COMPL ETE bacteria NONE SEEN /hpf none seen normal Not Available [address], [address], 07/16/2025 23:46:59 07/14/20 25 07/16/2025 URINA LYSIS , COMPL ETE hyaline cast NONE SEEN /lpf none seen normal Not Available [address], [address], 07/16/2025 23:46:59 07/14/20 25 07/16/2025 URINA LYSIS , COMPL ETE note This urine was jay zed for the prese nce of WBC, RBC, bacte kierra, casts , and other forme d eleme nts. Only those eleme nts seen were repor lawson. Not Available [address], [address], 07/16/2025 23:46:59 07/14/20 25 07/16/2025 CBC (INCL UDES DIFF/ PLT) white blood cell count 8.9 thous and/u L 3.8-10 .8 normal Not Available [address], [address], 07/16/2025 23:47:00 07/14/20 25 07/16/2025 CBC (INCL UDES DIFF/ PLT) red blood cell count 4.70 diallo on/uL 3.80-5 .10 normal Not Available [address], [address], 07/16/2025 23:47:00 07/14/20 25 07/16/2025 CBC (INCL UDES DIFF/ PLT) hemoglobin 14.1 g/dL 11.7-1 5.5 normal Not Available [address], [address], 07/16/2025 23:47:00 07/14/20 25 07/16/2025 CBC (INCL UDES DIFF/ PLT) hematocrit 43.1 % 35.9-4 6.0 normal Not Available [address], [address], 07/16/2025 23:47:00 07/14/20 25 07/16/2025 CBC (INCL UDES DIFF/ PLT) MCV 91.7 fL 81.4-1 01.7 normal Not Available [address], [address], 07/16/2025 23:47:00 07/14/2007/16/2025 CBC (INCL UDES DIFF/ PLT) MCH 30.0 pg 27.0-3 3.0 normal Not Available [address], [address], 07/16/2025 23:47:00 07/14/20 25 07/16/2025 CBC (INCL UDES DIFF/ PLT) MCHC 32.7 g/dL 31.6-3 5.4 normal Not Available [address], [address], 07/16/2025 23:47:00 07/14/20 25 07/16/2025 CBC (INCL UDES DIFF/ PLT) RDW 14.2 % 11.0-1 5.0 normal Not Available [address], [address], 07/16/2025 23:47:00 07/14/20 25 07/16/2025 CBC (INCL UDES DIFF/ PLT) platelet count 270 thous and/u L 140-40 0 normal Not Available [address], [address], 07/16/2025 23:47:00 07/14/20 25 07/16/2025 CBC (INCL UDES DIFF/ PLT) MPV 11.8 fL 7.5-12 .5 normal Not Available [address], [address], 07/16/2025 23:47:00 07/14/2007/16/2025 CBC (INCL UDES DIFF/ PLT) absolute neutrophils 5821 cells /uL 1500-7 800 normal Not Available [address], [address], 07/16/2025 23:47:00 07/14/20 25 07/16/2025 CBC (INCL UDES DIFF/ PLT) absolute lymphocytes 2154 cells /uL 850-39 00 normal Not Available [address], [address], 07/16/2025 23:47:00 07/14/2007/16/2025 CBC (INCL UDES DIFF/ PLT) absolute monocytes 525 cells /uL 200-95 0 normal Not Available [address], [address], 07/16/2025 23:47:00 07/14/20 25 07/16/2025 CBC (INCL UDES DIFF/ PLT) absolute eosinophils 374 cells /uL 15-500 normal Not Available [address], [address], 07/16/2025 23:47:00 07/14/20 25 07/16/2025 CBC (INCL UDES DIFF/ PLT) absolute basophils 27 cells /uL 0-200 normal Not Available [address], [address], 07/16/2025 23:47:00 07/14/20 25 07/16/2025 CBC (INCL UDES DIFF/ PLT) neutrophils 65.4 % normal Not Available [address], [address], 07/16/2025 23:47:00 07/14/20 25 07/16/2025 CBC (INCL UDES DIFF/ PLT) lymphocytes 24.2 % normal Not Available [facility] [address] [address], [place], [address], 07/16/2025 23:47:00 07/14/2007/16/2025 CBC (INCL UDES DIFF/ PLT) monocytes 5.9 % normal Not Available [facility] [address], [address], 07/16/2025 23:47:00 07/14/2007/16/2025 CBC (INCL UDES DIFF/ PLT) eosinophils 4.2 % normal Not Available [facility] [address], [address], 07/16/2025 23:47:00 07/14/2007/16/2025 CBC (INCL UDES DIFF/ PLT) basophils 0.3 % normal Not Available [facility] [address], [address], 07/16/2025 23:47:00 07/14/2007/16/2025 HEPAT ITIS B SURFA CE ANTIG EN W/REF L CONFI RM hepatitis B surface antigen NON-RE ACTIVE non-re active normal For addit ional infor valerie gonzales e refer to http: //[facility] ronald grant.que stdia gnost ics.c om/fa q/FAQ (This link is being provi ded for infor camacho nunez/ educa randy l purpo ses only. ) Not Available [address], [address], 07/16/2025 23:47:00 07/14/2007/16/2025 HEPAT ITIS C AB W/REF L TO HCV RNA, QN, PCR hepatitis C antibody NON-RE ACTIVE non-re active normal HCV antib sherita was non-r eacti ve. There is no labor atory evide nce of HCV infec tion. In most cases , no furth er actio n is requi red. Howev er, if recen t HCV expos ure is suspe cted, a test for HCV RNA (test code 48992 ) is sugge sted. For addit ional infor camacho padilla e refer to http: //[facility] ronald briggs stdia gnost ics.c om/fa q/FAQ 22v1 (This link is being provi ded for infor camacho nunez/ educa randy l purpo ses only. ) Not Available [facility] [address], [address], 07/16/2025 23:47:00 07/14/2007/16/2025 RUBEL LA AB (IGG) , IMMUN E STATU S rubella Ab (IgG), immune status <0.90 index low Index Inter preta tion ----- ----- ----- ---- <0.90 Not consi stent with immun ity 0.90- 0.99 Equiv ocal > or = 1.00 Consi stent with immun ity The prese nce of rubel la IgG antib sherita sugge sts immun izati on or past or curre nt infec tion with rubel la virus . Not Available [facility] - [address], [address], 07/16/2025 23:47:01 07/14/20 25 07/16/2025 CHLAM YDIA/ N. GONOR RHOEA E RNA, TMA, UROGE NITAL chlamydia trachomatis RNA, tma, urogenital NOT DETECT ED not detect ed normal Not Available [facility] - [address] [place], [address], 07/16/2025 23:47:01 07/14/20 25 07/16/2025 CHLAM YDIA/ N. GONOR RHOEA E RNA, TMA, UROGE NITAL neisseria gonorrhoeae RNA, tma, urogenital NOT DETECT ED not detect ed normal Not Available [facility] [address] [place], [address], 07/16/2025 23:47:01 07/14/20 25 07/16/2025 CHLAM YDIA/ N. GONOR RHOEA E RNA, TMA, UROGE NITAL comment The jay tical perfo rmanc e rubens cteri stics of this assay , when used to test SureP ath(T M) speci mens have been deter mined by [facility]. The modif icati ons have not been clear ed or appro aleisha by the FDA. This assay has been valid ated pursu ant to the CLIA regul ation s and is used for clini suman purpo ses. For addit ional infor valerie gonzales e refer to https ://ed ucati on.qu estK-MOTION Interactive. com/f aq/FA Q154 (This link is being provi ded for infor camacho grant/ educa randy l purpo ses only. ) Not Available [facility] [place] [address] [place], [address], 07/16/2025 23:47:01 07/14/20 25 07/16/2025 RPR (DX) W/REF L TITER AND T. PALLI DUM AB, IA RPR (DX) w/refl titer and confirmatory testing NON-RE ACTIVE non-re active normal No labor atory evide nce of syphi lis. If recen t expos ure is suspe cted, submi t a new sampl e in 2-4 weeks . Not Available [employer] [place] [address] [place], [address], 07/16/2025 23:47:01 07/14/20 25 07/16/2025 ANTIB SHERITA SCREE N, RBC W/REF L ID, TITER AND AG antibody screen, RBC w/refl id, titer and Ag NO ANTIBO DIES DETECT ED normal Refer ence range No antib odies detec lawson This assay is a scree trina test for the detec tion of red blood cell antib odies . The test is not to be used for pretr ansfu raghavendra scree trina or for the medic al manag ement of an alloi mmuni zed pregn jayjay. Not Available [facility] [place] [address] [place], [address], 07/16/2025 23:47:02 07/14/20 25 07/16/2025 ABO GROUP AND RH TYPE ABO group O Not Available [address] [address] [address], [place], [address], 07/16/2025 23:47:02 07/14/20 25 07/16/2025 ABO GROUP AND RH TYPE Rh type RH(D) POSITI VE For addit ional infor valerie gonzales e refer to http: //[facility] ronald Briggs stDia gnost ics.c om/fa q/FAQ 111 (This link is being provi ded for mary nunez/ ester guillermo ses only. ) Not Available [address] [address] [address], [place], [address], 07/16/2025 23:47:02 07/14/20 25 07/16/2025 DRUG MONIT OR, PANEL 1, SCREE N, URINE amphetamines NEGATI VE NG/mL <500 See Note A See Note A Not Available [facility] [address] [address] [address], [place], [address], 07/16/2025 23:47:02 07/14/20 25 07/16/2025 DRUG MONIT OR, PANEL 1, SCREE N, URINE barbiturates NEGATI VE NG/mL <300 See Note A See Note A Not Available [address] [address] [address], [place], [address], 07/16/2025 23:47:02 07/14/20 25 07/16/2025 DRUG MONIT OR, PANEL 1, SCREE N, URINE benzodiazepi joshua NEGATI VE NG/mL <100 See Note A See Note A Not Available [address] [address] [address], [place], [address], 07/16/2025 23:47:02 07/14/20 25 07/16/2025 DRUG MONIT OR, PANEL 1, SCREE N, URINE cocaine metabolite NEGATI VE NG/mL <150 See Note A See Note A Not Available [facility] [place] [address] [address] [address], [place], [address], 07/16/2025 23:47:02 07/14/20 25 07/16/2025 DRUG MONIT OR, PANEL 1, SCREE N, URINE marijuana metabolite NEGATI VE NG/mL <20 See Note A See Note A Not Available [facility] [address] [address] [address], [place], [address], 07/16/2025 23:47:02 07/14/20 25 07/16/2025 DRUG MONIT OR, PANEL 1, SCREE N, URINE methadone metabolite NEGATI VE NG/mL <100 See Note A See Note A Not Available [facility] [place] [address] [address] [address], [place], [address], 07/16/2025 23:47:02 07/14/20 25 07/16/2025 DRUG MONIT OR, PANEL 1, SCREE N, URINE opiates NEGATI VE NG/mL <100 See Note A See Note A Not Available [facility] [place] [address] [address] [address], [place], [address], 07/16/2025 23:47:02 07/14/20 25 07/16/2025 DRUG MONIT OR, PANEL 1, SCREE N, URINE oxycodone NEGATI VE NG/mL <100 See Note A See Note A Not Available [facility] [address] [address] [address], [place], [address], 07/16/2025 23:47:02 07/14/20 25 07/16/2025 DRUG MONIT OR, PANEL 1, SCREE N, URINE phencyclidin e NEGATI VE NG/mL <25 See Note A See Note A Not Available [facility] [address] [address] [address], [place], [address], 07/16/2025 23:47:02 07/14/20 25 07/16/2025 DRUG MONIT OR, PANEL 1, SCREE N, URINE creatinine 151.7 mg/dL > or = 20.0 Not Available [address] [address] [address], [place], [address], 07/16/2025 23:47:02 07/14/20 25 07/16/2025 DRUG MONIT OR, PANEL 1, SCREE N, URINE pH 5.8 4.5-9. 0 Not Available [facility] [address] [address] [address], [place], [address], 07/16/2025 23:47:02 07/14/20 25 07/16/2025 DRUG MONIT OR, PANEL 1, SCREE N, URINE oxidant NEGATI VE mcg/m L <200 Not Available [facility] [address] [address] [address], [place], [address], 07/16/2025 23:47:02 07/14/2007/16/2025 DRUG MONIT ORING TEMPL ATE notes and comments This drug testi ng is for medic al treat ment only. Jay sis was perfo rmed as non-f orens ic testi ng and these resul ts shoul d be used only by healt hcare provi ders to rende r diagn osis or treat ment, or to monit or progr ess of medic al condi tions . Note A: The resul ts are presu mptiv e; based only on screursula gracia ds, and they have not been confi rmed by a defin itive metho d. Healt hcare Provi ders needi ng Inter preta tion felicitas tance , pleas e conta ct us at 1.877 .40.R XTOX (1.87 7.407 .9869 ) M-F, 8am to 10pm EST Not Available [address] [address] [address], [place], [address], 07/16/2025 23:47:03 07/14/2007/16/2025 CULTU RE, URINE , ROUTI NE culture, urine, routine SEE NOTE CULTU RE, URINE , ROUTI NE Micro Numbe r: [id number] 005 Test Statu s: Final Speci men Sourc e: Urine Speci men Quali ty: Adequ ate Resul t: Less than 10,00 0 CFU/m L of singl e Gram posit kalen organ ism isola lawson. No furth er testi ng will be perfo rmed. If clini elena indic ated, recol lecti on using a metho d to minim ize conta minat ion, with promp t trans itzel to Urine Cultu re Trans port Tube, is recom adriel d. Not Available [facility] [address] [address], [place], [address], 07/16/2025 23:47:03 07/07/20 25 07/01/2025 US, obste tric, 1st trime ster No observ ation record ed. [email or web address] [facility] [address] [place], [address], 07/07/2025 16:18:33 Result Notes None recorded. Problems Name Problem SNOMED Code Status Onset Date Resolution Date Notes Provider Name and Address Organization Details Recorded Time Migraine 61814317 Active 2023 Hollie wheat [facility] 13:31:30 [facility]omnia 925412769 [facility] 13:31:24 Anxiety 63324394 Active 2023 Hollie wheat [facility] 5 13:30:55 Fatigue 52488119 Completed 202310/06/2024 Hollie wheat [facility] 5 13:32:31 Polycysti c ovary syndrome 546238358 Active 2023 Hollie wheat [facility] 5 13:31:59 Moderate persisten t asthma 277816104 Active 2023 Hollie wheat [facility] 13:31:51 Hidradeni tis suppurati va 45778521 [facility] 2024 [facility] 13:31:14 Bilateral carpal tunnel syndrome 966871438995 [address]1363 Active 2024 Manda Gonzales MD [address] [place] [address], [phone], [facility] 16:54:32 Abscess of axilla 60226501 Active 2024 Manda Gonzales MD [address] [place] [address], [address] [place] [address] 5, [facility] 17:01:45 Exacerbat ion of moderate persisten t asthma 987562914 Active 2024 Manda Gonzales MD [address] [place] [address], [phone], [facility] 10:33:40 Morbid obesity 545243395 Active 2024 Manda Gonzales MD [address] [place] [address], [phone], [facility] 15:18:35 Acute asthma 829593942 Active 2024 Manda Gonzales MD [address] [place] [address], [phone], [facility] 17:30:24 Allergic rhinitis 12469380 Active 2024 Manda Gonzales MD [address] [place] [phone], [facility] 17:32:26 01993886 Active 2024 Natasha wheat [facility] 5 15:24:34 Pain of knee region 4754668004 Active 2024 Manda Gonzales MD [address] [place] [address], [phone], [facility] 13:05:15 Tobacco user 849823908 Active 2024 Manda Gonzales MD [address] [place] [address], [phone], [facility] 13:06:47 Problem Notes None recorded. Procedures Surgical History Date Name Laterality Status Provider Name and Address Organization Details Recorded Time 12/12/19 25 Incision/Drainage-S imple completed Manda Gonzales MD [address] [place] [address], [phone], [facility], SantyLChristiano 12/14/2024 10:28:50 tonsilectomy/adenoi ds completed [facility] 12/13/2023 15:36:44 Cholecystectomy completed [facility] L.L[facility]ony 12/13/2023 15:36:50 Imaging Results None recorded. Procedure Notes None recorded. Medical Equipment None Reported. Allergies Allergen ID Allergen Name Allergen Category Reaction Reaction Severity Criticality Documentation Date Start Date Code Code System Note Provider Name and Address Organization Details Recorded Time 13251 aspirin medicatio n wheezing Not available Not available 06/24/2023 1191 RxNorm REY wheat [facility] 3 14:08:25 42445 wasp venoms environme nt Not available Not available [facility] 07/02/20252024 90148 RxNorm Not Available yessi - External Data [...] Available Not Available Not Available amoxicillin 875 mg-potassiu m clavulanate 125 [...] weight Body temperature Oxygen saturation Heart rate Respiratory rate Systolic And Diastolic Provider Name and Address Organization Details Last Updated DateTime 162.56 cm 41.4 kg/m2 487744. 76 g 97.8 [degF] 98 % 86 /min 18 /min 118/82 mm[Hg] Hollie Bello [facility] 12:49:57 Social History Question Answer Notes LastModified by Organizat ion Details LastModified Time Tobacco Smoking Status Current Every Day Smoker RAE wheat [facility] 12/13/2023 15:38:31 Do You Have An [...] Or The Highest Degree You Have Received? MO53296-6 Information not available 12/13/2023 Which Of Your Hands Is Dominant? Left Information not available 12/13/2023 What Was The Date Of Your Most Recent Tobacco Screening? 06/16/2025 [email or web address] Information not available 06/16/2025 What Is Your Current Pack Years? 20-29packyear s [email or web address] Information not available 04/28/2025 At What Age Did You Start Smoking Tobacco? 13 [email or web address] Information not available 04/28/2025 How Much Tobacco Do You Smoke? 1 PPD [email or web address] Information not available 04/28/2025 How Many Years Have You Smoked Tobacco? 20 [email or web address] Information not available 04/28/2025 Have You Recently [...] adolescent or pediatric 0 completed Not Available [facility] 07/14/2025 12:44:28 Hep A, ped/adol, 2 dose 2 completed Not Available [facility] 07/14/2025 12:44:28 Td (adult), 2 Lf tetanus toxoid, preservative free, adsorbed 2 completed Not Available [facility] 07/14/2025 12:44:28 Hep A, ped/adol, 2 dose 9 completed Not Available [facility] 07/14/2025 12:44:28 influenza, split (incl. purified surface antigen) 9 completed Not Available [facility] 07/14/2025 12:44:28 Tdap 2 completed Not Available [facility] 07/14/2025 12:44:28 Tdap 3 completed Not Available [facility] 07/14/2025 12:44:28 Influenza, split virus, quadrivalent, PF 3 completed Not Available [facility] 07/14/2025 12:44:28 Past Encounters Encounter ID Performer Location Encounter Start Date Encounter Closed Date Diagnosis/Indication Diagnosis SNOMED-CT Code Diagnosis ICD10 Code Diagnosis IMO Codes Diagnosis Note [id number] Manda Gonzales MD [facility] ([facility]) [address] [place] [phone] 06/16/2025 15:12:47 06/16/2025 16:15:38 First trimester 25650737 Z34.91 666405 - Schedule and perform an ultrasound to monitor growth and exclude complicati ons. - Conduct a repeat beta-hCG to assess ongoing health. - Stop Topiramate and other high-risk medication s; continue to review and adjust medication regimen to ensure safety. - Provide vitamins through insurance and ensure patient has access. - Discuss the implicatio ns of mild spotting and cramping, advising vigilance for worsening symptoms. [id number] Manda Gonzales MD [facility] ([facility]) [address] [place] [phone] 5 07/01/2025 12:42:15 07/01/2025 14:18:36 [id number] Manda Gonzales MD [facility] ([facility]) [address] [place] [address] 07/14/2025 12:40:46 07/14/2025 13:13:13 Normal 57470049 Z34.90 The patient will continue regular monitoring with emphasis on ensuring health. Acknowledg ement of benefits stemming from successful ly quitting smoking during . Pain of knee region 1003 [id number] M25.562 [id number] Management involves non-surgic al interventi ons and lifestyle adjustment s to fortify knee stability and minimize pain. A recommenda tion for a hinged knee brace is considered to provide structural support. Tobacco user [id number] F 17.200 76868 The patient will pursue a structured nicotine replacemen t regimen with counselor aid on sustained abstinence . Enhanced support offered through complement oral measures if heightened cravings occur. Health Concerns Section Related Observation LastModified by Organization Detai ls LastModified Time None Recorded Concern Status LastModified by Organization Details LastModified Time None Recorded Payers Encounter Date Sequence Insurance Name Policy Number Policy Fernandez Covered Member ID Fernandez Member ID Guarantor Name 07/14/2025 1 [facility] (MEDICAID HMO) Janie Medrano [id number] Janie Medrano Notes Date Note Type Note Provider Name and Address Organization Details Recorded Time 07/14/2025 text/html jr ob routineRep orted by PatientHPIFor associated symptoms, patient reportsno abdominal pain,no cramping,no contractions,normal movement,no bleeding,no rom,no vaginal discharge,no vaginal/vulvar itching or irritation,no dysuria,no frequency,no urgency,no hematuria,no fever,no emesis,no constipation,no diarrhea/loose stool,no edema,no visual changes,no headache,no dizziness,no decrease in urine volume,no breathlessness, andno hyperreflexia(alterna ting diarrhea and constipation). The patient is a 34-year-old female presenting with requests for assistance with smoking cessation and evaluation of knee pain. She reports knee instability at work, leading to a fall, with subsequent weakness and popping in her left knee. She has smoked since age 13 and is eager to quit during , having utilized nicotine patches previously during hospitalization. Manda Gonzales MD [address] [place] [address], [id number], [facility] 07/14/2025 14:47:18 OBGyn Episode Ob Episode Information Episode Created Date Number of Fetuses Patient Bloodtype Patient rh Status Prepregnancy Weight lbs Domestic Partner Domestic Partner Phone Father Name Vending Mechanic Status 06/16/20 25 1 O Positive OPEN Fetus Data First Name Last Name Admitted to NICU Weight (g) Sex Living Outcome Pediatric Complications Fetus ID Race Codes Race Delivery Type [id number] Mahendra Calculation Initial Mahendra Date Initial Exam [...] Gestation 0 dcrase 07/04/2025 02/09/20 26 0 Pre-karen Flowsheet Flowsheet Date 06/16/2025 Perry Score Blood Edema Fundus Height Fundus Units Glucose Ketones Leukocytes Nitrite Labor Signs Protein Cervic Dilation Cervic Effacement Cervic Station Type Weight in lbs Pre/Post Dialysis Refused Weight 241.457056325199 BP Diastolic BP Location Tested BP Systolic [...] in lbs Pre/Post Dialysis Refused With clothes 241.294449497819 BP Diastolic BP Location Tested BP Systolic [...] Estim ated Date of Delivery true Thalassemia (Zimbabwean, Occitan, Mediterranean, Or Background): MCV < 80 false Neural Tube Defect (Meningomyelocele, Spina Bifi da, Or Anencephaly) false Congenital Heart Defect false Down Syndrome false Sigifredo-Sachs (eg, Congregation, Cajun, Georgian-Laclede) f alse Alesia Disease false Sickle Cell Disease Or Trait () false Hemophilia Or Other Blood Disorders false Muscular Dystrophy false Cystic Fibrosis false Veyo's Chorea false Intellectual Disability/Autism false If Yes, [...]
--- OUTSIDE RECORDS SUMMARY | 2025-07-24 08:00 | XMS_ITS | Encounter Summary ---
Author Organization [facility] Address [address] [place] [address] Care Team Providers Care Educational Programming Director Name Role Phone Shima Tavarez Primary Care Provider +1 [phone] Encounter Details Date Type Department Care Team (Late st Contact Info) Description 05/09/2002 Outpatient Historical [facility] Family Medicine [facility] 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
--- OUTSIDE RECORDS SUMMARY | 2025-07-24 08:00 | XMS_ITS | Encounter Summary ---
Author Organization [facility] Address [address] [place] [address] Care Team Providers Care Frame Cleaner Name Role Phone Shima Tavarez [facility] Primary Care Provider +1 [phone] Encounter Details Date Type Department Care Team (Late st Contact Info) Description 09/26/2006 Orders Only [facility] Medicine Danita Belle [address] [place] [address] [place] [address] [address] [place] [address] Social History Tobacco Use Types Packs/Day Years Used Date Smoking Tobacco: Never Assessed Comments Unknown Sex and Gender Information Value Date Recorded Sex Assigned at Female 04/12/2024 1:48 AM CDT Legal Sex Female 4:34 AM STEVEDORING SUPERVISOR Gender Identity Female 04/12/2024 1:48 AM [...] NEW PRESCRIPTION, 09/26/2006. LAB ORDERS: Order number: [id number] Test Ordered: CBC W/ DIFFERENTIAL 3150 PATIENT [...] on filedocumented in this encounter Care Teams Frame Cleaner Relationship Specialty Start Date End Date Shima Tavarez FNP [address] [place] [phone] PCP - General 12/28/20 documented as of this encounter
--- OUTSIDE RECORDS SUMMARY | 2025-07-24 08:00 | XMS_ITS | Encounter Summary ---
Author Organization [facility] Address [address] [place] [address] Care Team Providers Care Cell Tuber Machine Name Role Phone Shima Tavarez Primary Care Provider +1 [phone] Encounter Details Date Type Department Care Team (Late st Contact Info) Description 07/04/2002 Outpatient Historical [facility] Family Medicine Danita Belle [address] [facility] [address] [place] [phone] [place] [address] 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
--- OUTSIDE RECORDS SUMMARY | 2025-07-24 08:00 | XMS_ITS | Encounter Summary ---
Author Organization [facility] Address [address] [place] [address] Care Team Providers Care General Assembler Installer Name Role Phone Shima Tavarez [facility] Primary Care Provider [phone] [phone] Encounter Details Date Type Department Care Team (Late st Contact Info) Description 03/08/2007 Orders Only [facility] Family Medicine Danita Belle [address] [facility] [address] [place] [address] [place] [address] [place] [address] Social History Tobacco Use Types Packs/Day Years Used Date Smoking Tobacco: Never Assessed Comments Unknown Sex and Gender Information Value Date Recorded Sex Assigned at Female 04/12/2024 1:48 AM CDT Legal Sex Female 4:34 AM SENIOR PROCESS ANALYST Gender Identity Female 04/12/2024 1:48 AM [...] on filedocumented in this encounter Care Teams General Assembler Installer Relationship Specialty Start Date End Date Shima Tavarez FNP [address] [place] [phone] PCP - General 12/28/20 documented as of this encounter
--- OUTSIDE RECORDS SUMMARY | 2025-07-24 08:00 | XMS_ITS | Encounter Summary ---
Author Organization [facility] Address [address] [place] [address] Care Team Providers Care Escalator Installer Name Role Phone Shima Tavarez COMPUTER AIDED DESIGN DRAFTER Primary Care Provider [phone] [phone] Encounter Details Date Type Department Care Team [...] AM CDT Legal Sex Female 4:34 AM FACE CLEANER Gender Identity Female 04/12/2024 1:48 AM CDT Sexual Orientation Not on file documented as of this encounter Plan of Treatment Not on file documented as of this encounter Procedures Procedure Name Priority Date/Time Associated Diagnosis Comments XR TIBIA AND FIBULA 2 VW LEFT Routine 09/06/2008 12:00 PM FACE CLEANER XR KNEE 4+ VW LEFT Routine 09/06/2008 12 :00 PM FACE CLEANER documented in this encounter Results * XR KNEE 4+ VW LEFT (09/06/2008 12:00 PM FACE CLEANER) Anatomical Region Laterality Modality Lower Extremity Other 09/06/2008 12:0 0 PM FACE CLEANER Narrative 09/06/2008 12:22 PM FACE CLEANER [facility] [address] [place], [place] [address] Admit Date: 09/06/2008 JUNIOR DUNLAP Sex: F Admit Prov: ER, AUTHORIZED P Date: 1990 Primary Care Prov: SHEELA PLEITEZ CMRN: [id number] [facility] [address] [place] [address] IMAGING SERVICES Ordering Prov: N/A Accession Number: [id number] Interpretation Left knee 4 views, 09/06/2008 Indication: Fall, pain Findings: There are no abnormalities within the bones, joints, or soft tissues. Impression: Normal. . Dictated by: ABDULLAHI RIOS 09/06/2008 12:19 Electronically signed by: ABDULLAHI RIOS 09/06/2008 12:20 Procedure Note Abdullahi Rios - 09/06/[address] [address] Admit Date: 09/06/2008 JUNIOR DUNLAP Sex: F Admit Prov: ER, AUTHORIZED P Date: 1990 Primary Care Prov: SHEELA PLEITEZ CMRN: [id number] [facility] [address] [place] [address] IMAGING SERVICES Ordering Prov: N/A Interpretation Left knee 4 views, 09/06/2008 Indication: Fall, pain Findings: There are no abnormalities within the bones, joints, orsoft tissues. Impression: Normal. . Dictated by: ABDULLAHI RIOS 09/06/2008 12:19 Electronically signed by: ABDULLAHI RIOS 09/06/2008 12:20 Bill Decker MD DIAGNOSTIC IMAGING ORDERABLES Final Result * XR TIBIA AND FIBULA 2 VW LEFT (09/06/2008 12:00 PM FACE CLEANER) Anatomical Region Laterality Modality Lower Extremity Other 09/06/2008 12:0 0 PM FACE CLEANER Narrative 09/06/2008 12:23 PM FACE CLEANER [place] [address] [place], [place] [address] Admit Date: 09/06/2008 JUNIOR DUNLAP Sex: F Admit Prov: ER, AUTHORIZED P Date: 1990 Primary Care Prov: SHEELA PLEITEZ CMRN: [id number] Room: [facility] SSN: [address] [place] [address] IMAGING SERVICES Ordering Prov: N/A Accession Number: [id number] Interpretation Left tibia and fibula AP and lateral, 09/06/2008 Indication: Fall, pain Findings: No abnormalities are seen in the bones, joints, or soft tissues. Impression: Normal. . Dictated by: ABDULLAHI RIOS 09/06/2008 12:20 Electronically signed by: ABDULLAHI RIOS 09/06/2008 12:21 Procedure Note Abdullahi Rios - 09/06/2008 [place] [address] [facility] [place] [place] [address] Admit Date: 09/06/2008 JUNIOR DUNLAP Sex: F Admit Prov: ER, AUTHORIZED P Date: 1990 Primary Care Prov: SHEELA PLEITEZ CMRN: [id number] Room: [facility] SSN: [address] [place] [address] IMAGING SERVICES Ordering Prov: N/A Interpretation Left [...] on filedocumented in this encounter Care Teams Escalator Installer Relationship Specialty Start Date End Date Shima Tavarez FNP [address] [place] [phone] PCP - General 12/28/20 documented as of this encounter
--- OUTSIDE RECORDS SUMMARY | 2025-07-24 08:00 | XMS_ITS | Encounter Summary ---
Author Organization [facility] Address [address] [place] [address] Care Team Providers Care Seo Analyst Name Role Phone Shima Tavarez Primary Care Provider [phone] [phone] Encounter Details Date Type Department Care Team (Late st Contact Info) Description 06/14/2002 Outpatient Historical [facility] Family Medicine [facility] [address] [address] [facility] [address] [place] [address] Grace [place] [address] Social History Tobacco Use Types Packs/Day Years Used Date Smoking Tobacco: Never Assessed Comments Unknown Sex and Gender Information Value Date Recorded Sex Assigned at Female 04/12/2024 1:48 AM CDT Legal Sex Female 4:34 AM FIELD EXAMINER Gender Identity Female 04/12/2024 1:48 AM CDT Sexual Orientation Not on file documented as of this encounter Plan of Treatment Not on file documented as of this encounter Procedures Procedure Name Priority Date/Time Associated Diagnosis Comments CHG TD VACCINE >7 YO IM VFC 06/14/2002 12:00 AM FIELD EXAMINER documented in this encounter Visit Diagnoses Not on filedocumented in this encounter Care Teams Seo Analyst Relationship Specialty Start Date End Date Shima Tavarez FNP [address] [place] [phone] PCP - General 12/28/20 documented as of this encounter
--- OUTSIDE RECORDS SUMMARY | 2025-07-24 08:00 | XMS_ITS | Encounter Summary ---
Author Organization [facility] Address [address] [place] [address] Care Team Providers Care Spring Setter Name Role Phone Shima Tavarez Primary Care Provider [phone] [phone] Encounter Details Date Type Department Care Team (Late st Contact Info) Description 12/14/2006 Emergency [facility] Fadumo Fernandes MD [address] [place] [address] Er, Authorized P NO ADDRESS ON FILE Unspecified Asthma, with Exacerbation (Primary Dx) Social History Tobacco Use Types Packs/Day Years Used Date Smoking Tobacco: Never Assessed Comments Unknown Sex and Gender Information Value Date Recorded Sex Assigned at Female 04/12/2024 1:48 AM CDT Legal Sex Female 4:34 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
--- OUTSIDE RECORDS SUMMARY | 2025-07-24 08:00 | XMS_ITS | Encounter Summary ---
Author Organization [facility] Address [address] [place] [address] Care Team Providers Care Mill Supervisor Name Role Phone Shima Tavarez [facility] Primary Care Provider [phone] [phone] Encounter Details Date Type Department Care Team (Late st Contact Info) Description 01/05/2007 Orders Only [facility] Medicine Danita Yoshi [address] [facility] [address] [place] [address] [place] [address] [facility] [address] [facility] [address] [place] [address] Social History Tobacco Use Types Packs/Day Years Used Date Smoking Tobacco: Never Assessed Comments Unknown Sex and Gender Information Value Date Recorded Sex Assigned at Female 04/12/2024 1:48 AM CDT Legal Sex Female 4:34 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 est pt/kang PATIENT'S AGE: 16 yrs, 3 mths, 3 wks, 3 days HISTORY: Mother and patient reports heavy menses with dark color discharge, spotting and then stopping off and on last week. Patient is sexually active and taking condoms and she often forgets to take her oral contraceptives. Has been missing work at [employer] due to dysmenorrhea pain. Took one dosage [...] more likely dysmenorrhea. LAB ORDERS: Order number: [id number] Test Ordered: URINALYSIS W/O MICRO [id number] Order number: [id number] Test Ordered: TEST (URINE) [id number] RETURN VISIT: Patient instructed to return in a few weeks. for a pap smear as she is overdue. Electronically Signed by: Desiree Prince MD on Saturday, January 06, 2007 documented in this encounter Plan of Treatment Not on file documented as of this encounter Visit Diagnoses Not on filedocumented in this encounter Care Teams Mill Supervisor Relationship Specialty Start Date End Date Shima Tavarez FNP [address] [place] [phone] PCP - General 12/28/20 documented as of this encounter
--- OUTSIDE RECORDS SUMMARY | 2025-07-24 08:00 | XMS_ITS | Encounter Summary ---
Author Organization [facility] Address [address] [place] [address] Care Team Providers Care Mine Manager Name Role Phone Shima Tavarez [facility] Primary Care Provider +1 -[phone] Encounter Details Date Type Department Care Team (Late st Contact Info) Description 03/08/2007 Outpatient Historical [facility] Family Medicine Danita Yoshi [address] [place] [address] [place] [address] [place] [address] Social History Tobacco Use Types Packs/Day Years Used Date Smoking Tobacco: Never Assessed Comments Unknown Sex and Gender Information Value Date Recorded Sex Assigned at Female 04/12/2024 1:48 AM CDT Legal Sex Female 4:34 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
--- OUTSIDE RECORDS SUMMARY | 2025-07-24 08:00 | XMS_ITS | Encounter Summary ---
Author Organization [facility] Address [address] [place] [address] Care Team Providers Care Clinical Trials Assistant Name Role Phone Shima Tavarez Primary Care Provider +1 -[phone] Encounter Details Date Type Department Care Team (Late st Contact Info) Description 01/15/2007 Outpatient Historical [facility] Family Medicine Danita Belle [address] [place] [address] [place] [address] [place] [address] Social History Tobacco Use Types Packs/Day Years Used Date Smoking Tobacco: Never Assessed Comments Unknown Sex and Gender Information Value Date Recorded Sex Assigned at Female 04/12/2024 1:48 AM CDT Legal Sex Female 4:34 AM DIRECTOR TRAFFIC AND PLANNING Gender Identity Female 04/12/2024 1:48 AM CDT Sexual Orientation Not on file documented as of this encounter Plan of Treatment Not on file documented as of this encounter Visit Diagnoses Not on filedocumented in this encounter Care Teams Clinical Trials Assistant Relationship Specialty Start Date End Date Shima Tavarez FNP [address] [place] [phone] PCP - General 12/28/20 documented as of this encounter
--- OUTSIDE RECORDS SUMMARY | 2025-07-24 08:00 | XMS_ITS | Encounter Summary ---
Author Organization [facility] Address [address] [place] [address] Care Team Providers Care Air Tube Releaser Name Role Phone Shima Tavarez Dena GAONAP Primary Care Provider +1 -[phone] Encounter Details Date Type Department Care Team (Latest Contact Info) Description 09/26/2006 Outpatient Historical [facility] Medicine Danita Belle [address] [employer] [facility] [address] [place] [address] [place] [address] [employer] [facility] [address] [place] [address] Dysmenorrhea (Primary Dx) Social History Tobacco Use Types Packs/Day Years Used Date Smoking Tobacco: Never Assessed Comments Unknown Sex and Gender Information Value Date Recorded Sex Assigned at Female 04/12/2024 1:48 AM CDT Legal Sex Female 4:34 AM EXPORT FREIGHT CLERK Gender Identity Female 04/12/2024 1:48 AM CDT Sexual Orientation Not on file documented as of this encounter Plan of Treatment Not on file documented as of this encounter Procedures Procedure Name Priority Date/Time Associated Diagnosis Comments CBC WITH DIFFERENTIAL Routine 09/26/2006 2:30 PM EXPORT FREIGHT CLERK CBC WITH DIFFERENTIAL Routine 09/26/2006 2:30 PM EXPORT FREIGHT CLERK documented in this encounter Results * CBC WITH DIFFERENTIAL (09/26/2006 2:30 PM EXPORT FREIGHT CLERK) NEUTROPHILS 49 45 - 70 % INTERFAC [...] 0.20 K/uL INTERFACE SYSTEM 09/26/2006 2:30 PM EXPORT FREIGHT CLERK Desiree Prince MD HEMATOLOGY ORDERABLES Edited Performing Organization Address City/State/[facility] Co de Phone Number INTERFACE SYSTEM Refer to clinic/hospital department * (ABNORMAL) CBC WITH DIFFERENTIAL (09/26/2006 2:30 PM EXPORT FREIGHT CLERK) WBC 5.6 4.0 - 9.8 K/uL INTERFACE [...] 12.4 fL INTERFACE SYSTEM 09/26/2006 2:30 PM EXPORT FREIGHT CLERK Desiree Prince MD HEMATOLOGY ORDERABLES Edited Performing Organization Address City/[facility] Co de Phone Number INTERFACE SYSTEM Refer to clinic/hospital department documented in this encounter Visit Diagnoses Diagnosis Dysmenorrhea- Primary documented in this encounter Care Teams Air Tube Releaser Relationship Specialty Start Date End Date Shima Tavarez FNP [address] [place] [phone] PCP - General 12/28/20 documented as of this encounter
--- OUTSIDE RECORDS SUMMARY | 2025-07-24 08:00 | XMS_ITS | Encounter Summary ---
Author Organization [facility] Address [address] [place] [address] Care Team Providers Care Vacuum Tester Cans Name Role Phone Shima Tavarez Primary Care Provider +1 -[phone] Encounter Details Date Type Department Care Team [...] CDT Legal Sex Female 4:34 AM SOCIAL SECURITY ASSESSOR Gender Identity Female 04/12/2024 1:48 AM CDT Sexual Orientation Not on file documented as of this encounter Plan of Treatment Not on file documented as of this encounter Visit Diagnoses Not on filedocumented in this encounter Care Teams Vacuum Tester Cans Relationship Specialty Start Date End Date Shima Tavarez FNP [address] [place] [phone] PCP - General 12/28/20 documented as of this encounter
--- OUTSIDE RECORDS SUMMARY | 2025-07-24 08:01 | XMS_ITS | Encounter Summary ---
Author Organization [facility] Address [address] [place] [address] Care Team Providers Care Compensation Adjuster Name Role Phone Shima Tavarez Primary Care Provider +1 -[phone] Encounter Details Date Type Department Care Team (Late st Contact Info) Description 11/01/2004 Outpatient Historical [facility] Medicine [facility] [address] [facility] [address] [place] [address] Joe Myers Social History Tobacco Use Types Packs/Day Years Used Date Smoking Tobacco: Never Assessed Comments Unknown Sex and Gender Information Value Date Recorded Sex Assigned at Female 04/12/2024 1:48 AM CDT Legal Sex Female 4:34 AM MARKETING CONTENT SPECIALIST Gender Identity Female 04/12/2024 1:48 AM [...] on filedocumented in this encounter Care Teams Compensation Adjuster Relationship Specialty Start Date End Date Shima Tavarez FNP [address] [place] [phone] PCP - General 12/28/20 documented as of this encounter
--- OUTSIDE RECORDS SUMMARY | 2025-07-24 08:01 | XMS_ITS | Encounter Summary ---
Author Organization [facility] Address [address] [place] [address] Care Team Providers Care Surgical Assistant Name Role Phone Shima Tavarez Primary Care Provider +1 -[phone] Encounter Details Date Type Department Care Team [...] AM CDT Legal Sex Female 4:34 AM WEB APPLICATIONS ARCHITECT Gender Identity Female 04/12/2024 1:48 AM CDT Sexual Orientation Not on file documented as of this encounter Plan of Treatment Not on file documented as of this encounter Visit Diagnoses Diagnosis Acute pharyngitis- Primary documented in this encounter Care Teams Surgical Assistant Relationship Specialty Start Date End Date Shima Tavarez FNP [address] [place] [phone] PCP - General 12/28/20 documented as of this encounter
--- OUTSIDE RECORDS SUMMARY | 2025-07-24 08:01 | XMS_ITS | Continuity of Care Document ---
Author Organization [facility] Leticia, LJonyLChristiano, [facility] ([facility]) Address [address] [place] [address] Care Team Providers Care Enzyme Chemist Name Role Phone MANDA GONZALES Primary Care Provider Assessment Encounter Date Assessment Date Assessment LastModified by Organization Details LastModified Time 04/28/2025 04/28/2025 34-year-old female with history of morbid obesity presenting for weight loss consultation. Post-knee surgery weight concerns prompt her to seek intervention options. Her family history of medullary thyroid cancer complicates GLP-1 medication use, pending further history validation. Prescription renewal for Naproxen and Tizanidine were requested for knee management. [email or web address] Not available 04/28/2025 15:30:24 Plan of Treatment Reminders Order Date Submit [...] d. Imaging None recorde d. Medication Orders naproxe n 500 mg tablet [address], [address], 07/14/2025 13:22:16 tizanid ine 4 mg tablet [address], [address], 07/14/2025 13:22:17 Patient TargetsNo targets recorded. Patient Instructions Encounter Date Encounter Id Patient Instructions Last Modified By Organization Details Last Modified Time 04/28/2025 [id number] - Please verify and confirm family history [...] are clear. [email or web address] Not available 04/28/2025 15:30:26 Reason for Referral None Reported. Results Created Date Observation Date Name Description Value Unit Range Abnormal Flag Note LastModifiedBy Organization Detail LastModifiedTime 07/07/2007/01/2025 US, obste tric, 1st trime ster No observ ation record ed. [email or web address] [facility] [address] [place], [address], 07/07/2025 16:18:33 Result Notes None recorded. Problems Name Problem SNOMED Code Status Onset Date Resolution Date Notes Provider Name and Address Organization Details Recorded Time Migraine 01297219 Active 2023 Hollie wheat [facility], L.LJonyCJony 13:31:30 Insomnia 864817327 Active 2023 Hollie wheat [facility] 13:31:24 Anxiety 64181146 Active 2023 Hollie wheat [facility] 13:30:55 Fatigue 71098439 Completed 202310/06/2024 Hollie wheat [facility] 13:32:31 Polycysti c ovary syndrome 112674252 Active 2023 Hollie wheat [facility], EmanuelCJony 13:31:59 Moderate persisten t asthma 737966701 Active 2023 Hollie wheat [facility], L.L.CJony 5 13:31:51 Hidradeni tis suppurati va 81262633 Active 2024 Hollie [facility]ello [facility] 13:31:14 Bilateral carpal tunnel syndrome 090058505163 31126 Active 2024 Manda Gonzales MD [address] [place] [address], [address], [facility], L.L.CJony 16:54:32 Abscess of axilla 10024889 Active 2024 Manda Gonzales MD [address] [place] [address], [address], [facility], L.L.CJony 17:01:45 Exacerbat ion of moderate persisten t asthma 332607156 Active 2024 Manda Gonzales MD [address] [place] [address], [address], [facility] 10:33:40 Morbid obesity 458424474 Active 2024 Manda Gonzales MD [address] [place] [address], [address], [facility] 15:18:35 Acute asthma 266181217 Active 2024 Manda Gonzales MD [address] [place] [address], [address], [facility] 17:30:24 Allergic rhinitis 72033808 Active 2024 Manda Gonzales MD [address] [place] [address], [address], [facility] 17:32:26 59233000 Active 2024 Natasha Jaya wheat [facility] 15:24:34 Pain of knee region 7030603053 Active 2024 Manda Gonzales MD [address] [place], [address], [facility], L.L.CJony 13:05:15 Tobacco user 772272011 Active 2024 Manda Gonzales MD [address] [place], [address], [facility], L.L.CJony 13:06:47 Problem Notes None recorded. Procedures Surgical History Date Name Laterality Status Provider Name and Address Organization Details Recorded Time 12/12/19 25 Incision/Drainage-S imple completed Manda Gonzales MD [address] [place], [address], [facility], L.L.CJony 12/14/2024 10:28:50 tonsilectomy/adenoi ds completed [facility], L.L.CJony 12/13/2023 15:36:44 Cholecystectomy [facility] 12/13/2023 15:36:50 Imaging Results None recorded. Procedure Notes None recorded. Medical Equipment None Reported. Allergies Allergen ID Allergen Name Allergen Category Reaction Reaction Severity Criticality Documentation Date Start Date Code Code System Note Provider Name and Address Organization Details Recorded Time 58159 aspirin medicatio n wheezing Not available Not available 06/24/2023 1191 RxNorm REY wheat [facility], L.L.CJony 3 14:08:25 44858 wasp venoms environme nt Not available Not available [facility] 07/02/20252024 05201 RxNorm Not Available yessi - External Data Service - prod 11:19:07 Medications Name Sig Start Date Stop [...] Available Not Available Not Available amoxicillin 875 mg-potpacoiu m clavulanate 125 mg tablet TAKE 1 [...] Organization Details Last Updated DateTime 162.56 cm 45.1 kg/m2 964712. 79 g 97.2 [degF] 97 % 75 /min 116/76 mm[Hg] Natasha [facility] 14:42:37 Social History Question Answer Notes LastModified by Organizat ion Details LastModified Time Tobacco Smoking Status Current Every Day Smoker [facility]ESA APPIAH [facility] 12/13/2023 15:38:31 Do You [...] Or The Highest Degree You Have Received? [id number] Information not available 12/13/2023 Which Of Your Hands Is Dominant? Left Information not available 12/13/2023 What Was The Date Of Your Most Recent Tobacco Screening? 06/16/2025 [email or web address] Information not available 06/16/2025 What Is Your Current Pack Years? 20-29packyear s [email or web address] Information not available 04/28/2025 At What Age Did You Start Smoking Tobacco? 13 [email or web address] Information not available 04/28/2025 How Much Tobacco Do You Smoke? 1 PPD [email or web address] Information not available 04/28/2025 How Many Years Have You Smoked Tobacco? 20 [email or web address] Information not available 04/28/2025 Have You Recently [...] adolescent or pediatric 0 completed Not Available [facility] 07/14/2025 12:44:28 Hep A, ped/adol, 2 dose 2 completed Not Available [facility] 07/14/2025 12:44:28 Td (adult), 2 Lf tetanus toxoid, preservative free, adsorbed 2 completed Not Available [facility] 07/14/2025 12:44:28 Hep A, ped/adol, 2 dose 9 completed Not Available [facility] 07/14/2025 12:44:28 influenza, split (incl. purified surface antigen) 9 completed Not Available [facility] 07/14/2025 12:44:28 Tdap 2 completed Not Available [facility] 07/14/2025 12:44:28 Tdap 3 completed Not Available [facility] 07/14/2025 12:44:28 Influenza, split virus, quadrivalent, PF 3 completed Not Available [facility] 07/14/2025 12:44:28 Past Encounters Encounter ID Performer Location Encounter Start Date Encounter Closed Date Diagnosis/Indication Diagnosis SNOMED-CT Code Diagnosis ICD10 Code Diagnosis IMO Codes Diagnosis Note [id number] ROXIE ANN [facility] ([facility]) [address] [place] [phone] 04/08/2025 11:43:07 04/08/2025 12:41:09 Nasal congestion 37860719 R09.81 05592 Viral uppe r respiratory tract infection 561027796 J06.9 361715 Increase po fluids. Rest. May use otc meds as needed for symptoms. Return to clinic with any new or worsening symptoms. [id number] Manda Gonzales MD [facility] ([facility]) [address] [place] [phone] 04/28/2025 14:35:52 04/28/2025 15:32:01 Morbid obesity 691510168 E66.01 72166543 - GLP-1 receptor agonists as a potential therapy pending family history clarificat ion. - Obtain relevant family cancer history before initiation . Pain of knee region 1003 141954 M25.562 - Refill Naproxen and Tizanidine previously prescribed for pain and muscle relaxation . Health Concerns Section Related Observation LastModified by Organization Detai ls LastModified Time None Recorded Concern Status LastModified by Organization Details LastModified Time None Recorded Payers Encounter Date Sequence Insurance Name Policy Number Policy Fernandez Covered Member ID Fernandez Member ID Guarantor Name 04/28/2025 1 [facility] (MEDICAID HMO) Janie Medrano [id number] Janie Medrano OBGyn Episode Ob Episode Information Episode Created Date Number of Fetuses Patient Bloodtype Patient rh Status Prepregnancy Weight lbs Domestic Partner Domestic Partner Phone Father Name Tenterer Status 06/16/20 25 1 O Positive OPEN Fetus Data First Name Last Name Admitted to NICU Weight (g) Sex Living Outcome Pediatric Complications Fetus ID Race Codes Race Delivery Type [id number] Mahendra Calculation Initial Mahendra Date Initial Exam [...] Weight in lbs Pre/Post Dialysis Refused Weight 241.282577450182 BP Diastolic BP Location Tested BP Systolic [...] in lbs Pre/Post Dialysis Refused With clothes 241.446490364715 BP Diastolic BP Location Tested BP Systolic [...] Estim ated Date of Delivery true Thalassemia (Romanian, Emirati, Mediterranean, Or Background): MCV < 80 false Neural Tube Defect (Meningomyelocele, Spina Bifi da, Or Anencephaly) false Congenital Heart Defect false Down Syndrome false Sigifredo-Sachs (eg, Synagogue, Cajun, Somali-Haitian) f alse Alesia Disease false Sickle Cell [...]
--- OUTSIDE RECORDS SUMMARY | 2025-07-24 08:01 | XMS_ITS | Encounter Summary ---
Author Organization [facility] Address [address] [place] [address] Care Team Providers Care Manager Farm Name Role Phone Shima Tavarez Primary Care Provider +1 -[phone] Encounter Details Date Type Department Care Team (Late st Contact Info) Description 06/05/2006 Emergency [facility] eKndra Goldstein MD [address] [place] [address] Er, Authorized P NO ADDRESS ON FILE Sprain and Strain of Unspecified Site of Foot (Primary Dx) Social History Tobacco Use Types Packs/Day Years Used Date Smoking Tobacco: Never Assessed Comments Unknown Sex and Gender Information Value Date Recorded Sex Assigned at Female 04/12/2024 1:48 AM CDT Legal 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
--- OUTSIDE RECORDS SUMMARY | 2025-07-24 08:01 | XMS_ITS | Encounter Summary ---
Author Organization [facility] Address [address] [place] [address] Care Team Providers Care Info Specialist Name Role Phone Shima Tavarez Primary Care Provider +1 -[phone] Encounter Details Date Type Department Care Team (Late st Contact Info) Description 07/19/2005 Emergency [facility] Wilfredo Cardoso, JUNI [address] [facility] [address] [place] [address] Er, Authorized P NO ADDRESS ON FILE ASTHMA UNSPECIFIED WITH EXAC (Primary Dx) Social History Tobacco Use Types Packs/Day Years Used Date Smoking Tobacco: Never Assessed Comments Unknown Sex and Gender Information Value Date Recorded Sex Assigned at Female 04/12/2024 1:48 AM CDT 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
--- OUTSIDE RECORDS SUMMARY | 2025-07-24 08:01 | XMS_ITS | Encounter Summary ---
Author Organization [facility] Address [address] [place] [address] Care Team Providers Care Dust Puller Name Role Phone Shima Tavarez Primary Care Provider +1 -[phone] Encounter Details Date Type Department Care Team (Late st Contact Info) Description 12/14/2003 Emergency [facility] Angela Lauren MD [address] [facility] [address] RIDER [address] [place] [address] Er, Authorized P NO ADDRESS ON FILE ASTHMA UNSPECIFIED (Primary Dx) Social History Tobacco Use Types Packs/Day Years Used Date Smoking Tobacco: Never Assessed Comments Unknown Sex and Gender Information Value Date Recorded Sex Assigned at Female 04/12/2024 1:48 AM CDT Legal 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
--- OUTSIDE RECORDS SUMMARY | 2025-07-24 08:01 | XMS_ITS | Encounter Summary ---
Author Organization [facility] Address 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
--- OUTSIDE RECORDS SUMMARY | 2025-07-24 08:01 | XMS_ITS | Encounter Summary ---
Author Organization [facility] Address [address] [place] [address] Care Team Providers Care Marketing Clerk Name Role Phone Shima Tavarez Primary Care Provider +1 -[phone] Encounter Details Date Type Department Care Team (Late st Contact Info) Description 10/01/2007 Outpatient Historical [facility] Danita Belle [address] [facility] [address] [place] [address] [place] [address] [place] [address] Social History Tobacco Use Types Packs/Day Years Used Date Smoking Tobacco: Never Assessed Comments Unknown Sex and Gender Information Value Date Recorded Sex Assigned at Female 04/12/2024 1:48 AM CDT Legal Sex Female 4:34 AM EVALUATION ANALYST Gender Identity Female 04/12/2024 1:48 AM CDT Sexual Orientation Not on file documented as of this encounter Plan of Treatment Not on file documented as of this encounter Procedures Procedure Name Priority Date/Time Associated Diagnosis Comments CHG HUMAN PAPILLOMA VACC VFC 10/01/2007 12:00 AM EVALUATION ANALYST documented in this encounter Visit Diagnoses Not on filedocumented in this encounter Care Teams Marketing Clerk Relationship Specialty Start Date End Date Shima Tavarez FNP [address] [place] [phone] PCP - General 12/28/20 documented as of this encounter
--- OUTSIDE RECORDS SUMMARY | 2025-07-24 08:01 | XMS_ITS | Encounter Summary ---
Author Organization [facility] Address [address] [place] [address] Care Team Providers Care Help Desk Assistant Name Role Phone Shima Tavarez Primary Care Provider +1 -[phone] Encounter Details Date Type Department Care Team (Late st Contact Info) Description 04/14/2006 Emergency [facility] Shahzad Harmon MD [address] [place] [address] Er, Authorized P NO ADDRESS ON FILE Unspecified Asthma, with Exacerbation (Primary Dx) Social History Tobacco Use Types Packs/Day Years Used Date Smoking Tobacco: Never Assessed Comments Unknown Sex and Gender Information Value Date Recorded Sex Assigned at Female 04/12/2024 1:48 AM CDT 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
--- OUTSIDE RECORDS SUMMARY | 2025-07-24 08:01 | XMS_ITS | Encounter Summary ---
[facility] Organization [facility] Address [address] [place] [address] Care Team Providers Care Phone Representative Name Role Phone Shima Tavarez [facility] Primary Care Provider [phone] Encounter Details Date Type Department Care Team [...] AM CDT Legal Sex Female 4:34 AM [employer]ACH[employer] Gender Identity Female 04/12/2024 1:48 AM CDT Sexual Orientation Not on file documented as of this encounter Plan of Treatment Not on file documented as of this encounter Procedures Procedure Name Priority Date/Time Associated Diagnosis Comments CBC WITH DIFFERENTIAL Routine 08/07/2005 1:45 PM [employer] MACHINIST CBC WITH DIFFERENTIAL Routine 08/07/2005 1:45 PM [employer] MACHINIST HCG QUANTITATIVE, BLOOD Routine 08/07/2005 1:45 PM [employer] MACHINIST BASIC METABOLIC PANEL Routine 08/07/2005 1:45 PM [employer] M[employer]INIST documented in this encounter Results * BASIC METABOLIC PANEL (08/07/2005 1:45 PM [employer] MACHINIST) GLUCOSE 97 60 - 110 mg/dL INTERFACE [...] 30 mmol/L INTERFACE SYSTEM 08/07/2005 1:45 PM [employer] MACHINIST us Dave Tiwari MD CHEMISTRY ORDERABLES Final Res ult INTERFACE SYSTEM Refer to clinic/hospital department * HCG QUANTITATIVE, BLOOD (08/07/2005 1:45 PM [employer] MACHINIST) HCG QUANT, BLOOD <5 0 - 5 [...] with other clinical evidence. 08/07/2005 1:45 PM [employer] MACHINIST Historical Provider CHEMISTRY ORDERABLES Final R esult Performing Organization Address [place]/[facility] de Phone Number INTERFACE SYSTEM Refer to clinic/hospital department * CBC WITH DIFFERENTIAL (08/07/2005 1:45 PM [employer] MACHINIST) NEUTROPHILS 45 36 - 74 % INTERFAC [...] 0.04 K/uL INTERFACE SYSTEM 08/07/2005 1:45 PM [employer] MACHINIST Historical Provider HEMATOLOGY ORDERABLES Final Result Performing Organization Address [facility] Phone Number INTERFACE SYSTEM Refer to clinic/hospital department * (ABNORMAL) CBC WITH DIFFERENTIAL (08/07/2005 1:45 PM [employer]URRET [employer] MACHINIST) WBC 5.0 4.0 - 9.8 K/uL INTERFACE [...] 12.4 fL INTERFACE SYSTEM 08/07/2005 1:45 PM [employer] MACHINIST Historical Provider HEMATOLOGY ORDERABLES Final Result Performing Organization Address [place]/[facility] de Phone Number INTERFACE SYSTEM Refer to clinic/hospital department documented in this encounter Visit Diagnoses Diagnosis Other disorder of menstruation and other abnormal bleeding from female genital tract- Primary documented in this encounter Care Teams Phone Representative Relationship Specialty Start Date End Date Shima Tavarez FNP [address] [place] [id number] PCP - General 12/28/20 documented as of this encounter
--- OUTSIDE RECORDS SUMMARY | 2025-07-24 08:01 | XMS_ITS | Data Portability ---
Author Organization [facility], L.LJonyCJEFFREY BorgesROO[facility]VEL[facility]ITALMarian[facility] Address [address] [address] Care Team Providers Care Medical Genetics Director Name Role Phone MIGUELMANDA Primary Care Provider [phone] Assessment Encounter Date Assessment Date Assessment LastModified by Organization Details LastModified Time 04/28/2025 04/28/2025 34-year-old femjose armando li with history of morbid obesity presenting for weight loss consultation. Post-knee surgery weight concerns prompt her to seek intervention options. Her family history of medullary thyroid cancer complicates GLP-1 medication use, pending further history validation. Prescription renewal for Naproxen and Tizanidine were requested for knee management. [email or web address] Not available 04/28/2025 15:30:24 05/27/2025 05/27/2025 34-year-old fema le with a history of asthma presenting with exacerbation, showing symptoms of cough and nocturnal dyspnea, alongside allergic rhinitis. The patient is responding to antiasthmatic therapy but requires optimized allergy management and additional corticosteroids for acute control. [email or web address] Not available 05/27/2025 17:33:33 06/16/2025 06/16/2025 - 34-year-old female presenting with first trimester - confirmed via labs; elevated hCG noted. - Patient reports spotting, mild cramping, addressing medication management. [email or web address] Not available 06/16/2025 15:47:06 07/14/2025 07/14/2025 34-year-old fema le with history of nicotine dependence presenting with requests for smoking cessation assistance and evaluation of left knee pain. Her and past knee issues are integral to current management considerations. [email or web address] Not available 07/14/2025 13:14:40 Plan of [...] RPR (rapid plasma reagin) , serum 2024 025 [employer] [facility], [address] [place] [address] 248, [address], [place], [address], 07/16/2025 23:47:01 CBC w/ auto diff 2024 025 [employer] [facility], [address] [place] [address] 248, [address], [place], [address], 07/16/2025 23:47:00 hepatit is C virus Ab, serum 2024 [facility], [address] [place] [address] 248, [address], [place], [address], 07/16/2025 23:47:00 HIV 1+2 Ab + HIV1 p24 Ag, quantit ative immunoa ssay, serum 2024 [facility], [address] [place] [address], [address], [place], [address], 07/16/2025 23:46:59 antibod y screen, serum or plasma 2024 [facility], [address] [place] [address], [address], [place], [address], 07/16/2025 23:47:02 abo group + rh type, blood 2024 [facility], [address] [place] [address], [address], [place], [address], 07/16/2025 23:47:02 HBsAg (hepati tis B surface Ag), serum 2024 [facility], [address] [place] [address], [address], [place], [address], 07/16/2025 23:47:00 rubella igg Ab screen, serum 2024 [facility], [address] [place] [address], [address], [place], [address], 07/16/2025 23:47:01 urinaly sis, complet e 2024 [facility], [address] [place] [address], [address], [place], [address], 07/16/2025 23:46:59 culture , urine 2024 [facility], [address] [place] [address], [address], [place], [address], 07/16/2025 23:47:03 drug screen, urine 2024 [facility], [address] [place] [address], [address], [place], [address], 07/16/2025 23:47:02 CT + NG RNA, PCR, unspeci fied specime n 2024 [facility], [address] [place] [address], [address], [place], [address], 07/16/2025 23:47:01 beta-HC G, quantit ative, serum or plasma 2024 [facility], [address] [place] [address], [address], [place], [address], 06/17/2025 09:08:32 Referral None recorde d. Procedures None recorde d. Surgeries None recorde d. Imaging US, [facility], 1st trimest er - [id number] 2024 [facility], [address] [place], [address], 07/07/2025 16:18:33 Medication Orders nicotin e 21 mg/24 hr daily transde rmal patch 2024 025 [facility], [address] [place] [address], [address], 07/15/2025 10:52:24 nicotin e 14 mg/24 hr daily transde rmal patch 2024 025 [facility], [address] [place] [address], [id number], 07/14/2025 13:22:20 nicotin e 7 mg/24 hr daily transde rmal patch [address], [address], 07/14/2025 13:22:19 Prenata l Vitamin 27 mg iron-0. 8 mg tablet [address], [address], 07/14/2025 13:22:15 flutica sone propion ate 50 mcg/act uation nasal spray,s uspensi on [address], [address], 05/27/2025 17:49:04 prednis one 20 mg tablet [address], [address], 07/14/2025 12:51:37 naproxe n 500 mg tablet [address], [address], 07/14/2025 13:22:16 tizanid ine 4 mg tablet [address], [address], 07/14/2025 13:22:17 Patient TargetsNo targets recorded. Patient Instructions Encounter Date Encounter Id Patient Instructions Last Modified By Organization Details Last Modified Time 04/28/2025 [id number] - Please verify and confirm family history [...] clear. [email or web address] Not available 04/28/2025 15:30:26 05/27/2025 [id number] - Take the prescribed steroids as directed. [...] side effects. [email or web address] Not available 05/27/2025 17:33:38 06/16/2025 [id number] - Schedule an ultrasound today; head to the lab for blood work. - Start taking vitamins as prescribed. - Monitor for worsening symptoms or increased pain, and seek emergency care if necessary. - Avoid high-risk medications, as discussed, until further notice. - Ensure regular follow-up with your OB care provider to monitor progression. [email or web address] Not available 06/16/2025 15:47:08 I explained to t he patient the likely diagnosis of a normal ongoing first trimester but highlighted potential risks such as miscarriage and ectopic , given the spotting and cramping. We discussed the importance of an ultrasound and repeating the beta-hCG test to confirm the normal progression of the . We reviewed her medications and decided to discontinue those posing potential risks during , such as Topiramate and Metformin. I also facilitated obtaining vitamins through her insurance. We discussed early signs that would necessitate immediate medical attention, such as increased pain or heavier bleeding, and the importance of arranging follow-up with obstetric care. [email or web address] Not available 06/16/2025 15:47:09 07/14/2025 [id number] - Use nicotine patches as directed to [...] Covid Antigen negati ve Not Available [facility] ([facility]) [address] [place], [address], 04/08/2025 11:52:20 06/16/20 25 06/17/2025 HCG, TOTAL , [place] [address] mIU/m L high Refer ence Range Nonpr [...] appro aleisha by the FDA or the [facility] act[facility] er of the assay . Not Available [facility] [place] [address] [place], [address], 06/17/2025 09:08:32 06/20/2006/21/2025 HCG, TOTAL , [place] [address] mIU/m L high Refer ence Range Nonpr [...] appro aleisha by the FDA or the [facility] actur er of the assay . Not Available [facility] [place] [address] [place], [address], 06/21/2025 06:41:40 07/14/2007/16/2025 HIV 1/2 ANTIG EN/AN TIBOD Y,FOU RTH GENER ATION W/RFL HIV final interpretati on HIV NEGATI VE normal HIV-1 antig en and HIV-1 /HIV- 2 antib odies were not detec lawson. There is no labor atory evide nce of HIV infec tion. Not Available [facility] [place] [address] [place], [address], 07/16/2025 23:46:59 07/14/2007/16/2025 HIV 1/2 ANTIG EN/AN TIBOD Y,FOU RTH GENER ATION W/RFL HIV Ag/Ab, screen NON-RE ACTIVE non-re active normal Not Available [facility] [place] [address] [place], [address], 07/16/2025 23:46:59 07/14/20 25 07/16/2025 URINA LYSIS , COMPL ETE color YELLOW yellow normal Not Available [address], [address], 07/16/2025 23:46:59 07/14/20 25 07/16/2025 URINA LYSIS , COMPL ETE appearance CLEAR clear normal Not Available [address], [address], 07/16/2025 23:46:59 07/14/20 25 07/16/2025 URINA LYSIS , COMPL ETE specific gravity 1.015 1.001- 1.035 normal Not Available [address], [address], 07/16/2025 23:46:59 07/14/20 25 07/16/2025 URINA LYSIS , COMPL ETE pH 5.5 5.0-8. 0 normal Not Available [address], [address], 07/16/2025 23:46:59 07/14/20 25 07/16/2025 URINA LYSIS , COMPL ETE glucose NEGATI VE negati ve normal Not Available [address], [address], 07/16/2025 23:46:59 07/14/20 25 07/16/2025 URINA LYSIS , COMPL ETE bilirubin NEGATI VE negati ve normal Not Available [address], [address], 07/16/2025 23:46:59 07/14/20 25 07/16/2025 URINA LYSIS , COMPL ETE ketones NEGATI VE negati ve normal Not Available [address], [address], 07/16/2025 23:46:59 07/14/20 25 07/16/2025 URINA LYSIS , COMPL ETE occult blood NEGATI VE negati ve normal Not Available [address], [address], 07/16/2025 23:46:59 07/14/2007/16/2025 URINA LYSIS , COMPL ETE protein NEGATI VE negati ve normal Not Available [address], [address], 07/16/2025 23:46:59 07/14/20 25 07/16/2025 URINA LYSIS , COMPL ETE nitrite NEGATI VE negati ve normal Not Available [address], [address], 07/16/2025 23:46:59 07/14/20 25 07/16/2025 URINA LYSIS , COMPL ETE leukocyte esterase NEGATI VE negati ve normal Not Available [address], [address], 07/16/2025 23:46:59 07/14/20 25 07/16/2025 URINA LYSIS , COMPL ETE WBC NONE SEEN /hpf < or = 5 normal Not Available [address], [address], 07/16/2025 23:46:59 07/14/20 25 07/16/2025 URINA LYSIS , COMPL ETE RBC NONE SEEN /hpf < or = 2 normal Not Available [address], [address], 07/16/2025 23:46:59 07/14/20 25 07/16/2025 URINA LYSIS , COMPL ETE squamous epithelial cells NONE SEEN /hpf < or = 5 normal Not Available [address], [address], 07/16/2025 23:46:59 07/14/20 25 07/16/2025 URINA LYSIS , COMPL ETE bacteria NONE SEEN /hpf none seen normal Not Available [address], [address], 07/16/2025 23:46:59 07/14/20 25 07/16/2025 URINA LYSIS , COMPL ETE hyaline cast NONE SEEN /lpf none seen normal Not Available [address], [address], 07/16/2025 23:46:59 07/14/2007/16/2025 URINA LYSIS , COMPL ETE note This urine was jay zed for the prese nce of WBC, RBC, bacte kierra, casts , and other forme d eleme nts. Only those eleme nts seen were repor lawson. Not Available [address], [address], 07/16/2025 23:46:59 07/14/20 25 07/16/2025 CBC (INCL UDES DIFF/ PLT) white blood cell count 8.9 thous and/u L 3.8-10 .8 normal Not Available [address], [address], 07/16/2025 23:47:00 07/14/20 25 07/16/2025 CBC (INCL UDES DIFF/ PLT) red blood cell count 4.70 diallo on/uL 3.80-5 .10 normal Not Available [address], [address], 07/16/2025 23:47:00 07/14/20 25 07/16/2025 CBC (INCL UDES DIFF/ PLT) hemoglobin 14.1 g/dL 11.7-1 5.5 normal Not Available [address], [address], 07/16/2025 23:47:00 07/14/20 25 07/16/2025 CBC (INCL UDES DIFF/ PLT) hematocrit 43.1 % 35.9-4 6.0 normal Not Available [address], [address], 07/16/2025 23:47:00 07/14/20 25 07/16/2025 CBC (INCL UDES DIFF/ PLT) MCV 91.7 fL 81.4-1 01.7 normal Not Available [address], [address], 07/16/2025 23:47:00 07/14/20 25 07/16/2025 CBC (INCL UDES DIFF/ PLT) MCH 30.0 pg 27.0-3 3.0 normal Not Available [address], [address], 07/16/2025 23:47:00 07/14/20 25 07/16/2025 CBC (INCL UDES DIFF/ PLT) MCHC 32.7 g/dL 31.6-3 5.4 normal Not Available [address], [address], 07/16/2025 23:47:00 07/14/20 25 07/16/2025 CBC (INCL UDES DIFF/ PLT) RDW 14.2 % 11.0-1 5.0 normal Not Available [address], [address], 07/16/2025 23:47:00 07/14/20 25 07/16/2025 CBC (INCL UDES DIFF/ PLT) platelet count 270 thous and/u L 140-40 0 normal Not Available [address], [address], 07/16/2025 23:47:00 07/14/20 25 07/16/2025 CBC (INCL UDES DIFF/ PLT) MPV 11.8 fL 7.5-12 .5 normal Not Available [address], [address], 07/16/2025 23:47:00 07/14/20 25 07/16/2025 CBC (INCL UDES DIFF/ PLT) absolute neutrophils 5821 cells /uL 1500-7 800 normal Not Available [address], [address], 07/16/2025 23:47:00 07/14/20 25 07/16/2025 CBC (INCL UDES DIFF/ PLT) absolute lymphocytes 2154 cells /uL 850-39 00 normal Not Available [address], [address], 07/16/2025 23:47:00 07/14/2007/16/2025 CBC (INCL UDES DIFF/ PLT) absolute monocytes 525 cells /uL 200-95 0 normal Not Available [address], [address], 07/16/2025 23:47:00 07/14/20 25 07/16/2025 CBC (INCL UDES DIFF/ PLT) absolute eosinophils 374 cells /uL 15-500 normal Not Available [address], [address], 07/16/2025 23:47:00 07/14/20 25 07/16/2025 CBC (INCL UDES DIFF/ PLT) absolute basophils 27 cells /uL 0-200 normal Not Available [address], [address], 07/16/2025 23:47:00 07/14/20 25 07/16/2025 CBC (INCL UDES DIFF/ PLT) neutrophils 65.4 % normal Not Available [address], [address], 07/16/2025 23:47:00 07/14/20 25 07/16/2025 CBC (INCL UDES DIFF/ PLT) lymphocytes 24.2 % normal Not Available [address], [address], 07/16/2025 23:47:00 07/14/20 25 07/16/2025 CBC (INCL UDES DIFF/ PLT) monocytes 5.9 % normal Not Available [facility] [address], [address], 07/16/2025 23:47:00 07/14/20 25 07/16/2025 CBC (INCL UDES DIFF/ PLT) eosinophils 4.2 % normal Not Available [facility] [address], [address], 07/16/2025 23:47:00 07/14/2007/16/2025 CBC (INCL UDES DIFF/ PLT) basophils 0.3 % normal Not Available [address], [address], 07/16/2025 23:47:00 07/14/20 25 07/16/2025 HEPAT ITIS B SURFA CE ANTIG EN W/REF L CONFI RM hepatitis B surface antigen NON-RE ACTIVE non-re active normal For addit ional infor valerie gonzales e refer to http: //[facility] ronald grant.que stdia gnost ics.c om/fa q/FAQ (This link is being provi ded for infor camacho nunez/ educa randy l purpo ses only. ) Not Available [address], [address], 07/16/2025 23:47:00 07/14/2007/16/2025 HEPAT ITIS C AB [...] a test for HCV RNA (test code 17905 ) is sugge sted. For addit ional infor camacho padilla e refer to http: //va briggs stdia gnost ics.c om/fa q/FAQ 22v1 (This link is being provi ded for infor camacho nunez/ ester chango ses only. ) Not Available [facility] [address], [address], 07/16/2025 23:47:00 07/14/2007/16/2025 RUBEL LA AB (IGG) [...] virus . Not Available [facility] - [address], [address], 07/16/2025 23:47:01 07/14/20 25 07/16/2025 CHLAM YDIA/ N. GONOR RHOEA E RNA, TMA, UROGE NITAL chlamydia trachomatis RNA, tma, urogenital NOT DETECT ED not detect ed normal Not Available [facility] [address], [address], 07/16/2025 23:47:01 07/14/20 25 07/16/2025 CHLAM YDIA/ N. GONOR RHOEA E RNA, TMA, UROGE NITAL neisseria gonorrhoeae RNA, tma, urogenital NOT DETECT ED not detect ed normal Not Available [facility] [address] [place], [address], 07/16/2025 23:47:01 07/14/20 25 07/16/2025 CHLAM YDIA/ [...] e refer to https ://ed ucati on.qu estdi Classana. com/f aq/FA Q154 (This link is being provi ded for infor camacho grant/ educjose armando padilla l purpo ses only. ) Not Available [facility] [place] [address] [place], [address], 07/16/2025 23:47:01 07/14/20 25 07/16/2025 RPR (DX) W/REF L TITER AND T. PALLI DUM AB, IA RPR (DX) w/refl titer and confirmatory testing NON-RE ACTIVE non-re active normal No labor atory evide nce of syphi lis. If recen t expos ure is suspe cted, submi t a new sampl e in 2-4 weeks . Not Available [facility] [place] [address] [place], [address], 07/16/2025 23:47:01 07/14/20 25 07/16/2025 ANTIB SHERITA [...] alloi mmuni zed pregn jayjay. Not Available [facility] [place] [address] [place], [address], 07/16/2025 23:47:02 07/14/20 25 07/16/2025 ABO GROUP AND RH TYPE ABO group O Not Available [address] [address] [address], [place], [address], 07/16/2025 23:47:02 07/14/20 25 07/16/2025 ABO GROUP AND RH TYPE Rh type RH(D) POSITI VE For addit ional infor valerie gonzales e refer to http: //[facility] ronald Dania gnost ics.c om/fa q/FAQ 111 (This link is being provi ded for infor camacho nunez/ educjose armando koch purpo ses only. ) Not Available [address] [address] [address] [address], [place], [address], 07/16/2025 23:47:02 07/14/2007/16/2025 DRUG MONIT OR, PANEL 1, SCREE N, URINE amphetamines NEGATI VE NG/mL <500 See Note A See Note A Not Available [address] [address] [address] [address], [place], [address], 07/16/2025 23:47:02 07/14/2007/16/2025 DRUG MONIT OR, PANEL 1, SCREE N, URINE barbiturates NEGATI VE NG/mL <300 See Note A See Note A Not Available [address] [address] [address] [address], [place], [address], 07/16/2025 23:47:02 07/14/20 25 07/16/2025 DRUG MONIT OR, PANEL 1, SCREE N, URINE benzodiazepi joshua NEGATI VE NG/mL <100 See Note A See Note A Not Available [address] [address] [address], [place], [address], 07/16/2025 23:47:02 07/14/20 25 07/16/2025 DRUG MONIT OR, PANEL 1, SCREE N, URINE cocaine metabolite NEGATI VE NG/mL <150 See Note A See Note A Not Available [address] [address] [address] [address], [place], [address], 07/16/2025 23:47:02 07/14/20 25 07/16/2025 DRUG MONIT OR, PANEL 1, SCREE N, URINE marijuana metabolite NEGATI VE NG/mL <20 See Note A See Note A Not Available [address] [address] [address] [address], [place], [address], 07/16/2025 23:47:02 07/14/20 25 07/16/2025 DRUG MONIT OR, PANEL 1, SCREE N, URINE methadone metabolite NEGATI VE NG/mL <100 See Note A See Note A Not Available [facility] [place] [address] [address], [place], [address], 07/16/2025 23:47:02 07/14/20 25 07/16/2025 DRUG MONIT OR, PANEL 1, SCREE N, URINE opiates NEGATI VE NG/mL <100 See Note A See Note A Not Available [facility] [place] [address] [address], [place], [address], 07/16/2025 23:47:02 07/14/2007/16/2025 DRUG MONIT OR, PANEL 1, SCREE N, URINE oxycodone NEGATI VE NG/mL <100 See Note A See Note A Not Available [facility] [place] [address] [address], [place], [address], 07/16/2025 23:47:02 07/14/20 25 07/16/2025 DRUG MONIT OR, PANEL 1, SCREE N, URINE phencyclidin e NEGATI VE NG/mL <25 See Note A See Note A Not Available [address] [address] [address], [place], [address], 07/16/2025 23:47:02 07/14/20 25 07/16/2025 DRUG MONIT OR, PANEL 1, SCREE N, URINE creatinine 151.7 mg/dL > or = 20.0 Not Available [facility] [place] [address] [address], [place], [address], 07/16/2025 23:47:02 07/14/20 25 07/16/2025 DRUG MONIT OR, PANEL 1, SCREE N, URINE pH 5.8 4.5-9. 0 Not Available [facility] [address] [address], [place], [address], 07/16/2025 23:47:02 07/14/2007/16/2025 DRUG MONIT OR, PANEL 1, SCREE N, URINE oxidant NEGATI VE mcg/m L <200 Not Available [facility] [place] [address] [address], [place], [address], 07/16/2025 23:47:02 07/14/2007/16/2025 DRUG MONIT ORING TEMPL ATE notes and comments This drug testi ng is for medic al treat ment only. Jay sis was perfo rmed as non-f orens ic testi ng and these resul ts shoul d be used only by [facility] provi ders to rende r diagn osis or treat ment, or to monit or progr ess of medic al condi tions . Note A: The resul ts are presu mptiv e; based only on rabia gibson, and they have not been confi rmed by a defin itive jose jonas. [facility] Provi ders needi ng Inter preta tion felicitas tance , pleas e conta ct us at 1.877 .40.R XTOX (1.87 7.407 .9869 ) M-F, 8am to 10pm EST Not Available [facility] [address] [address], [place], [address], 07/16/2025 23:47:03 07/14/2007/16/2025 CULTU RE, URINE , ROUTI NE culture, urine, routine SEE NOTE CULTU RE, URINE , ROUTI NE Micro Numbe r: [id number] 005 Test Statu s: Final Speci men [...] Tube, is recom adriel d. Not Available [facility] [address] [address], [place], [address], 07/16/2025 23:47:03 07/07/20 25 07/01/2025 US, obste tric, 1st trime ster No observ ation record ed. [email or web address] [facility] [address] [place], [address], 07/07/2025 16:18:33 Result Notes None recorded. Problems Name Problem SNOMED Code Status Onset Date Resolution Date Notes Provider Name and Address Organization Details Recorded Time Migraine 34024989 Active [address] [facility] 13:31:30 Insomnia 717748824 Active [address] [facility] 13:31:24 Anxiety 13985281 Active [address] [facility] 13:30:55 Fatigue 13986540 Completed 202310/06/[address] [facility] 13:32:31 Polycysti c ovary syndrome 573174655 Active [address] [facility] 13:31:59 Moderate persisten t asthma 960545770 Active [address] [facility] 13:31:51 Hidradeni tis suppurati va 72189044 Active 2024 [facility] 13:31:14 Bilateral carpal tunnel syndrome 390626053228 78184 Active 2024 Manda Gonzales MD [address] [place] [address], [phone], [facility] 16:54:32 Abscess of axilla 74039240 Active 2024 Manda Gonzales MD [address] [place] [address], [phone], [facility] 17:01:45 Exacerbat ion of moderate persisten t asthma 483067841 Active 2024 Manda Gonzales MD [address] [place] [address], [phone], [facility] 10:33:40 Morbid obesity 001875608 Active 2024 Manda Gonzales MD [address] [place] [address], [phone], [facility] 15:18:35 Acute asthma 272177307 Active 2024 Manda Gonzales MD [address] [place] [address], [phone], [facility] 17:30:24 Allergic rhinitis 35191901 Active 2024 Manda Gonzales MD [address] [place] [address], [phone], [facility] 17:32:26 08120902 Active [address] [facility] 15:24:34 Pain of knee region 0013942801 Active 2024 Manda Gonzales MD [address] [place] [address], [phone], [facility] 13:05:15 Tobacco user 156929604 Active 2024 Manda Gonzales MD [address] [place] [address], [phone], [facility] 13:06:47 Problem Notes None recorded. Procedures Surgical History Date Name Laterality Status Provider Name and Address Organization Details Recorded Time 12/12/19 25 Incision/Drainage-S imple completed Manda Gonzales MD [address] [place] [address], [phone], [facility] 12/14/2024 10:28:50 tonsilectomy/adenoi ds completed [facility] 12/13/2023 15:36:[address] [facility] 12/13/2023 15:36:50 Imaging Results None recorded. Procedure Notes None recorded. Medical Equipment None Reported. Allergies Allergen ID Allergen Name Allergen Category Reaction Reaction Severity Criticality Documentation Date Start Date Code Code System Note Provider Name and Address Organization Details Recorded Time 66850 aspirin medicatio n wheezing Not available Not available 06/24/2023 1191 RxNorm [facility] 3 14:08:25 89898 wasp venoms environme nt Not available Not available high 07/02/20252024 42461 RxNorm Not Available yessi - External Data [...] Available Not Available Not Available amoxicillin 875 mg-angelajayngoc m clavulanate 125 mg tablet TAKE 1 [...] injector INJECT 5ML SUBCUTANE OUSLY every week 12/15 /2025 completed Not Available Not Available Not Available Zepbound 2.5 mg/0.5 mL subcutaneou s pen injector inject 2.5mg SUBCUTANE OUSLY every week 07/14 completed Not Available Not Available Not Available Vitals Date Recorded Body height Body mass index (BMI) Body weight Body temperature Oxygen saturation Heart rate Systolic And Diastolic Provider Name and Address Organization Details Last Updated DateTime 5 162.56 cm 45.1 kg/m2 565579. 79 g 97.2 [degF] 97 % 75 /min 116/76 mm[Hg] [facility] 5 14:42:37 Date Recorded Body height Body mass index (BMI) Body weight Body temperature Oxygen saturation Heart rate Systolic And Diastolic Provider Name and Address Organization Details Last Updated DateTime 5 162.56 cm 42.9 kg/m2 733824. 09 g 98.2 [degF] 99 % 100 /min 126/86 mm[Hg] [facility] 5 17:14:23 Date Recorded Body height Body mass index (BMI) Body weight Body temperature Oxygen saturation Heart rate Systolic And Diastolic Provider Name and Address Organization Details Last Updated DateTime 5 162.56 cm 41.4 kg/m2 378305. 76 g 97.5 [degF] 99 % 70 /min 132/90 mm[Hg] [facility] 5 15:28:35 Date Recorded Body height Body mass index (BMI) Body weight Body temperature Oxygen saturation Heart rate Respiratory rate Systolic And Diastolic Provider Name and Address Organization Details Last Updated DateTime 5 162.56 cm 41.4 kg/m2 498352. 76 g 97.8 [degF] 98 % 86 /min 18 /min 118/82 mm[Hg] [facility] 5 12:49:57 Social History Question Answer Notes LastModified by Organizat ion Details LastModified Time Tobacco Smoking Status Current Every Day Smoker [facility]23 15:38:31 Do You Have An Advance [...] Or The Highest Degree You Have Received? [id number] Information not available 12/13/2023 Which Of Your Hands Is Dominant? Left Information not available 12/13/2023 What Was The Date Of Your Most Recent Tobacco Screening? 06/16/2025 [email or web address] Information not available 06/16/2025 What Is Your Current Pack Years? 20-29packyear s [email or web address] Information not available 04/28/2025 At What Age Did You Start Smoking Tobacco? 13 [email or web address] Information not available 04/28/2025 How Much Tobacco Do You Smoke? 1 PPD [email or web address] Information not available 04/28/2025 How Many Years Have You Smoked Tobacco? 20 Information not available 04/28/2025 Have You Recently [...] adolescent or pediatric 0 completed Not Available [facility] 07/14/2025 12:44:28 Hep A, ped/adol, 2 dose 2 completed Not Available [facility] 07/14/2025 12:44:28 Td (adult), 2 Lf tetanus toxoid, preservative free, adsorbed 2 completed Not Available [facility] 07/14/2025 12:44:28 Hep A, ped/adol, 2 dose 9 completed Not Available [facility] 07/14/2025 12:44:28 influenza, split (incl. purified surface antigen) 9 completed Not Available [facility] 07/14/2025 12:44:28 [facility]dap 2 completed [facility] 07/14/2025 12:44:28 Tdap 3 completed Not Available [facility] 07/14/2025 12:44:28 Influenza, split virus, quadrivalent, PF 3 completed Not Available [facility] 07/14/2025 12:44:28 Past Encounters Encounter ID Performer Location Encounter Start Date Encounter Closed Date Diagnosis/Indication Diagnosis SNOMED-CT Code Diagnosis ICD10 Code Diagnosis IMO Codes Diagnosis Note [id number] REINIER NOLAND PA-C [facility] ([facility]) [address] [place] [address] [id number] 5 11/25/2022 10:39:07 11/25/2022 19:51:58 Low back pain 046084127 M54.50 Ice, stretch, OTC Ibuprofen and Tyelonol. Note for off work today Pain in limb 48129754 M7 9.115 [id number] ANN WALSH [facility] ([facility]) [address] [place] [address] [id number] 5 06/24/2023 13:58:24 06/24/2023 14:54:24 Acute sinusitis 16820702 J01.90 Covid negative today. Start Flonase today. Encouraged to continue tylenol/ib uprofen as needed for pain and fevers. Continue daily allergy medication s. Recommend pushing fluids and using cool mist humidifier at night. If worsening condition or no improvemen t in 7-10 days, return for further evaluation . If severe SOB or chest pain occurs, go to ED. Patient verbalizes understand ing. [id number] Manda Gonzales MD [facility] ([facility]) [address] [place] [address] [id number] 5 06/30/2023 12:54:24 07/03/2023 11:11:33 Abscess of left axilla 0357194340 2231228 L02.412 Small pustule was unroofed and small amount of pustular material was expressed. No antibiotic s are needed at this time. Follow-up if symptoms do not improve. [id number] RAJ ONEIL APRN [facility] ([facility]) [address] [place] [address] [id number] 12/09/2023 10:42:19 12/09/2023 11:47:50 Candidiasis of vagina 13908436 B37.31 Exposure t o sexually transmissible disorder 280031142 Z20.2 [id number] Manda Gonzales MD [facility] ([facility]) [address] [place] [address] [id number] 5 12/13/2023 15:26:30 12/13/2023 16:20:08 Migraine 84716969 G43.909 Alyson treatment for migraines including preventati ve medication as well as abortive medication . Will do a combinatio n of both. We will start Topamax for preventati ve and start Imitrex to help with abortive. Insomnia 400721559 G47.0 0 We will see if the Topamax and mental health treatment will help with insomnia before adding any additional medication s for this. Discussed good sleep hygiene. Anxiety 68852100 F41.9 Start Wellbutrin and buspirone to help with depression and anxiety. Adult [facility] th examination 826391546 Z00.00 Check labs today. Discussed health maintenanc e including well-devin jeffrey diet and regular exercise. Obesity 914698191 E66.9 Fatigue 61807935 R53.83 Polycystic ovary syndrome 438397213 E28.2 Regular cycles are likely secondary to polycystic ovarian syndrome. Patient has been on metformin in the past and anticipate that it will help. Will restart the medication . [id number] Manda Gonzales MD [facility] ([facility]) [address] [place] [address] [id number] 5 03/26/2024 11:11:35 03/26/2024 11:50:06 Migraine 14437171 G43.909 Will increase her topiramate to twice daily and see if this decreases the frequency of her headaches. Will transition her over to Maxalt and see if this helps with therapy. Anxiety 82834452 F41.9 Patient has not done well on BuSpar or hydroxyzin e we will provide a few clonazepam to help with as needed panic attacks [id number] Manda Gonzales MD [facility] ([facility]) [address] [place] [address] [id number] 5 05/29/2024 14:24:37 05/29/2024 15:00:09 Moderate persistent asthma 851924716 J45.40 She does not appear to be in an acute exacerbati on at this time. However, her asthma is not likely controlled well at baseline. Continue treating allergies and avoiding other triggers. Will start Advair continue to use albuterol as needed. 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 [id number] Manda Gonzales MD [facility] ([facility]) [address] [place] [address] [id number] 5 09/25/2024 16:36:08 09/25/2024 17:32:36 Anxiety 46407350 F41.9 Patient has not done well on BuSpar or hydroxyzin e we will provide a few clonazepam to help with as needed panic attacks Hidradenit is suppurativa 00582712 L73.2 Lesions are likely related to hidradenit is suppurativ a. Discussed skin care and using Hibiclens. Encouraged weight loss. Follow-up if symptoms worsen or do not improve. [id number] Manda Gonzales MD [facility] ([facility]) [address] [place] [address] [id number] 5 12/11/2024 16:40:43 12/15/2024 21:06:28 Bilateral carpal tunnel syndrome 9997368668 4065710 G56.03 [id number] Patient has known carpal tunnel. The patient has had nerve conduction study that confirmed this. Since her symptoms are worsening and she wants to seek surgical repair, will send referral to orthopedic s. Abscess of axilla 034214 01 L02.480 [id number] Patient had abscess under the right armpit. Incision and drainage was performed. See procedure note. Start Bactrim [id number] Manda Gonzales MD [facility] ([facility]) [address] [place] [address] [id number] 01/10/2025 10:18:50 01/13/2025 08:05:53 Exacerbation of moderate persistent asthma 694545110 J45.41 701753 Concerned about asthma exacerbati on. Start prednisone and azithromyc in. Continue to use albuterol inhaler as needed for rescue. Moderate p ersistent asthma 178812161 J45.40 Patient is not having good control of her asthma at baseline. Will increase her Advair dosing to 500 5 0 [id number] ROXIE ANN [facility] ([facility]) [address] [place] [address] [id number] 5 04/08/2025 11:43:07 04/08/2025 12:41:09 Nasal congestion 09468590 R09.81 74964 Viral uppe r respiratory tract infection 624711534 J06.9 328599 Increase po fluids. Rest. May use otc meds as needed for symptoms. Return to clinic with any new or worsening symptoms. [id number] Manda Gonzales MD [facility] ([facility]) [address] [place] [address] [id number] 5 04/28/2025 14:35:52 04/28/2025 15:32:01 Morbid obesity 016984883 E66.01 18537113 - GLP-1 receptor agonists as a potential therapy pending family history clarificat ion. - Obtain relevant family cancer history before initiation . Pain of knee region 1003 693085 M25.562 - Refill Naproxen and Tizanidine previously prescribed for pain and muscle relaxation . [id number] Manda Gonzales MD [facility] ([facility]) [address] [place] [address] [id number] 5 05/27/2025 17:07:52 05/27/2025 17:36:36 Acute asthma 441403918 J45.133 5643822 - Initiate corticoste roids for exacerbati on control.- Maintain current use of respirator y inhalers including Advair and Albuterol. Allergic rhinitis 852594 04 J30.9 6230249817 - Encourage regular Flonase administra tion. - Consider supplement al antihistam ine therapy if necessary. [id number] Manda Gonzales MD [facility] ([facility]) [address] [place] [address] [id number] 5 06/16/2025 15:12:47 06/16/2025 16:15:38 First trimester 86468844 Z34.91 958715 - Schedule and perform an ultrasound to [...] and cramping, advising vigilance for worsening symptoms. [id number] Manda Gonzales MD [facility] ([facility]) [address] [place] [address] [id number] 5 07/01/2025 12:42:15 07/01/2025 14:18:36 [id number] Manda Gonzales MD [facility] ([facility]) [address] [place] [address] [id number] 5 07/14/2025 12:40:46 07/14/2025 13:13:13 Normal 66674037 Z34.90 The patient will continue regular monitoring with emphasis on ensuring health. Acknowledg ement of benefits stemming from successful ly quitting smoking during . Pain of knee region 1003 702824 M25.562 98435139 Management involves non-surgic al interventi ons and lifestyle adjustment s to fortify knee stability and minimize pain. A recommenda tion for a hinged knee brace is considered to provide structural support. Tobacco user 723431374 F 17.200 63924 The patient will pursue a structured nicotine replacemen t regimen with credit counselor on sustained abstinence . Enhanced support offered [...] Guarantor Name 12/13/2023 1 [employer] [place] (MEDICA[place] REPLACEMENT - HMO) [id number] Janie Medrano [id number] Janie Medrano 12/13/2023 1 *SELF PAY* Sa dorian Medrano 07/11/2025 1 [facility] (MEDICAID HMO) Janie Medrano [id number] Janie Medrano 07/11/2025 [facility] (MEDICAID HMO) Janie Medrano [id number] Janie Medrano Notes Date Note Type Note Provider Name and Address Organization Details Recorded Time 04/28/2025 text/html The patient is a 34-year-old [...] for her knee condition. Manda Gonzales MD [address] [place] [address], [phone], [facility] 04/28/2025 15:51:53 05/27/2025 text/html The patient [...] steroids during seasonal flares. Manda Gonzales MD [address] [place] [address], [phone], [facility] 05/28/2025 09:29:12 06/16/2025 text/html jr ob routineRep orted by PatientHPIFor associated symptoms, patient reportsabdominal pain,cramping,bleeding ,frequency,urgency,zachery sea,emesis,constipatio n, anddiarrhea/loose stoolbut reportsno contractions,normal movement,no rom,no vaginal discharge,no vaginal/vulvar itching or irritation,no dysuria,no hematuria,no fever,no edema,no visual changes,no headache,no dizziness,no decrease in urine volume,no breathlessness, andno hyperreflexia. The patient is a 34-year-old female presenting for confirmation of , management of medications, and evaluation of first trimester symptoms. She confirmed her on June 08 at [facility] ER with urine and blood lab tests, showing hCG levels at 4600. She presented with light bleeding that had become brown and cramping on the sides. Her last menstrual period was noted to be on April 16. The patient has not taken daily medications for underlying conditions, such as migraines, since confirmation of the due to concerns about safety. Plans for an ultrasound and a repeat beta-hCG test were discussed to assess progression. - Labs: hCG result was 4600 Manda Gonzales MD [address] [place] [address], [phone], [facility] 06/17/2025 10:49:28 07/14/2025 text/html jr ob routineRep orted by PatientHPIFor associated symptoms, patient reportsno abdominal pain,no cramping,no contractions,normal movement,no bleeding,no rom,no vaginal discharge,no vaginal/vulvar itching or irritation,no dysuria,no frequency,no urgency,no hematuria,no fever,no emesis,no constipation,no diarrhea/loose stool,no edema,no visual changes,no headache,no dizziness,no decrease in urine volume,no breathlessness, andno hyperreflexia(alternat ing diarrhea and constipation). The patient is a [...] patches previously during hospitalization. Manda Gonzales MD [address] [place] [address], [phone], [facility] 07/14/2025 14:47:18 OBGyn Episode Ob Episode Information Episode Created Date Number of Fetuses Patient Bloodtype Patient rh Status Prepregnancy Weight lbs Domestic Partner Domestic Partner Phone Father Name Blankbook Forwarder Status 06/16/20 25 1 O Positive OPEN Fetus Data First Name Last Name Admitted to NICU Weight (g) Sex Living Outcome Pediatric Complications Fetus ID Race Codes Race Delivery Type [id number] Mahendra Calculation Initial Mahendra Date Initial Exam [...] Weight in lbs Pre/Post Dialysis Refused Weight 241.402508756008 BP Diastolic BP Location Tested BP Systolic [...] in lbs Pre/Post Dialysis Refused With clothes 241.087179359928 BP Diastolic BP Location Tested BP Systolic [...] Estim ated Date of Delivery true Thalassemia (Divehi, Latvian, Mediterranean, Or Background): MCV < 80 false Neural Tube Defect (Meningomyelocele, Spina Bifi da, Or Anencephaly) false Congenital Heart Defect false Down Syndrome false Sigifredo-Sachs (eg, Scientology, Cajun, Wallisian[place]) f alse Alesia Disease false Sickle Cell Disease Or Trait () false Hemophilia Or Other Blood Disorders false Muscular Dystrophy false Cystic Fibrosis false Leawood's Chorea false Intellectual Disability/Autism false If Yes, [...]
--- OUTSIDE RECORDS SUMMARY | 2025-07-24 08:01 | XMS_ITS | Encounter Summary ---
Author Organization [facility] Address [address] [place] [address] Care Team Providers Care Housekeeping Associate Name Role Phone Shima Tavarez Primary Care Provider [phone] [phone] Encounter Details Date Type Department Care Team (Late st Contact Info) Description 11/04/2005 Outpatient Historical [facility] Family Medicine 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
--- OUTSIDE RECORDS SUMMARY | 2025-07-24 08:01 | XMS_ITS | Encounter Summary ---
Author Organization [employer] Address 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
--- OUTSIDE RECORDS SUMMARY | 2025-07-24 08:01 | XMS_ITS | Encounter Summary ---
Author Organization [facility] Address [address] [place] [address] Care Team Providers Care Cost Control Analyst Name Role Phone Shima Tavarez Primary Care Provider +1 [phone] Encounter Details Date Type Department Care Team [...] CDT Legal Sex Female 4:34 AM EXPORT SALES ASSISTANT Gender Identity Female 04/12/2024 1:48 AM CDT Sexual Orientation Not on file documented as of this encounter Plan of Treatment Not on file documented as of this encounter Visit Diagnoses Diagnosis Acute bronchitis- Primary documented in this encounter Care Teams Cost Control Analyst Relationship Specialty Start Date End Date Shima Tavarez FNP [address] [place] [phone] PCP - General 12/28/20 documented as of this encounter
--- OUTSIDE RECORDS SUMMARY | 2025-07-24 08:01 | XMS_ITS | Encounter Summary ---
Author Organization [employer] Address 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
--- OUTSIDE RECORDS SUMMARY | 2025-07-24 08:01 | XMS_ITS | Encounter Summary ---
Author Organization [facility] Address [address] [place] [address] Care Team Providers Care Assembling Motor Builder Name Role Phone Shima Tavarez [facility] Primary Care Provider +1 [phone] Encounter Details Date Type Department Care Team (Late st Contact Info) Description 10/01/2007 Orders Only [facility] Family Medicine [address] [place] [address] [place] [address] [place] [address] Social History Tobacco Use Types Packs/Day Years Used Date Smoking Tobacco: Never Assessed Comments Unknown Sex and Gender Information Value Date Recorded Sex Assigned at Female 04/12/2024 1:48 AM CDT Legal Sex Female 4:34 AM CUPOLA LINER Gender Identity Female 04/12/2024 1:48 AM CDT [...] COMPLAINT: second hpv/popped rib out of place/right side.est.[facility] HISTORY: 724.5-BACK PAIN Seen 09/28/07 for OMT for R upper back and [...] NOT ELSEWHERE CLASSIFIED LAB ORDERS: Order number: [id number] Test Ordered: OSTEOPATHIC MANIPULATIVE TX, 1-2 BODY REGIONS 16426 V04.89-NEED PROPH VAC&INOCULAT OTH VIRL DZ LAB ORDERS: Order number: [id number] Test Ordered: INJ-VFC GARDASIL [id number] 256.4-OVARIAN DYSFUNCTION ASSESSMENT: Testosterone and insulin elevated, [...] on filedocumented in this encounter Care Teams Assembling Motor Builder Relationship Specialty Start Date End Date Shima Tavarez FNP [address] [place] [address] PCP - General 12/28/20 documented as of this encounter
--- OUTSIDE RECORDS SUMMARY | 2025-07-24 08:01 | XMS_ITS | Encounter Summary ---
Author Organization [facility] Address [address] [place] [address] Care Team Providers Care Personal Service Workers Name Role Phone Shima Tavarez Primary Care Provider +1 [phone] Encounter Details Date Type Department Care Team (Late st Contact Info) Description 09/27/2007 Outpatient Historical [facility] Family Medicine [address] [place] [address] [place] [address] [place] [address] Social History Tobacco Use Types Packs/Day Years Used Date Smoking Tobacco: Never Assessed Comments Unknown Sex and Gender Information Value Date Recorded Sex Assigned at Female 04/12/2024 1:48 AM CDT 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
--- OUTSIDE RECORDS SUMMARY | 2025-07-24 08:01 | XMS_ITS | Encounter Summary ---
Author Organization [facility] Address [address] [place] [address] Care Team Providers Care Distribution A Class Lineman Name Role Phone Shima Tavarez Primary Care Provider [phone] [phone] Encounter Details Date Type Department Care Team (Late st Contact Info) Description 12/16/2003 Outpatient Historical [facility] Family Medicine [facility] [address] [place] [address] [place] [address] Social History Tobacco Use Types Packs/Day Years Used Date Smoking Tobacco: Never Assessed Comments Unknown Sex and Gender Information Value Date Recorded Sex Assigned at Female 04/12/2024 1:48 AM CDT Legal Sex Female 4:34 AM TARE WORKER Gender Identity Female 04/12/2024 1:48 AM CDT Sexual Orientation Not on file documented as of this encounter Plan of Treatment Not on file documented as of this encounter Visit Diagnoses Not on filedocumented in this encounter Care Teams Distribution A Class Lineman Relationship Specialty Start Date End Date Shima Tavarez FNP [address] [place] [phone] PCP - General 12/28/20 documented as of this encounter
--- OUTSIDE RECORDS SUMMARY | 2025-07-24 08:01 | XMS_ITS | Continuity of Care Document ---
Author Organization [facility] Mehrdad Kebede [facility], [facility] ([facility]) Address [address] [place] [address] Care Team Providers Care Technology Methodology Consultant Name Role Phone MANDA GONZALES Primary Care Provider Assessment Encounter Date Assessment Date Assessment LastModified by Organization Details LastModified Time 06/16/2025 06/16/2025 - 34-year-old female presenting with first trimester - confirmed via labs; elevated hCG noted. - Patient reports spotting, mild cramping, addressing medication management. [email or web address] Not available 06/16/2025 15:47:06 Plan of Treatment Reminders Order Date Submit Date Provider Last Modified By Organization Details Last Modified Time Details Appointments RETURN OB 2025 11:45A Elizabeth Gonzales MD [...] Not available Not available Not available Lab beta-HC G, quantit ative, serum or plasma 2024 025 [facility], [address] [address], [facility] [address] [place], [address], 06/17/2025 09:08:32 Referral None recorde d. Procedures None recorde d. Surgeries None recorde d. Imaging US, obstetr ic, 1st trimest er - [address]671 2024 025 [facility], [address] [place], [address], 07/07/2025 16:18:33 Medication Orders Prenata l Vitamin 27 mg iron-0. 8 mg tablet 2024 025 [facility], [address] [place], [address], 07/14/2025 13:22:15 Patient TargetsNo targets recorded. Patient Instructions Encounter Date Encounter Id Patient Instructions Last Modified By Organization Details Last Modified Time 06/16/2025 [id number] - Schedule an ultrasound today; head to the lab for blood work. - Start taking vitamins as prescribed. - Monitor for worsening symptoms or increased pain, and seek emergency care if necessary. - Avoid high-risk medications, as discussed, until further notice. - Ensure regular follow-up with your OB care provider to monitor progression. [email or web address] Not available 06/16/2025 15:47:08 I explained to the patient the likely diagnosis of a normal [...] obstetric care. [email or web address] Not available 06/16/2025 15:47:09 Reason for Referral None Reported. Results Created Date Observation Date Name Description Value Unit Range Abnormal Flag Note LastModifiedBy Organization Detail LastModifiedTime 06/16/2006/17/2025 HCG, [place] , [place], [place] [address] mIU/m L high Refer ence Range Nonpr [...] appro aleisha by the FDA or the [facility] act[facility] er of the assay . Not Available [facility] [address] [place], [address], 06/17/2025 09:08:32 07/07/20 25 07/01/2025 US, obste tric, 1st trime ster No observ ation record ed. [email or web address] [facility] [address] [place], [address], 07/07/2025 16:18:33 Result Notes None recorded. Problems Name Problem SNOMED Code Status Onset Date Resolution Date Notes Provider Name and Address Organization Details Recorded Time Migraine 05056556 Active 2023 [facility] 13:31:30 Insomnia 987169182 Active 2023 [facility] 13:31:24 Anxiety 71154917 Active 2023 Hollie wheat, [facility] 13:30:55 Fatigue 30550113 Completed 202310/06/2024 Hollie wheat, [facility] 13:32:31 Polycysti c ovary syndrome 587165468 Active 2023 Hollie wheat, [facility] 13:31:59 Moderate persisten t asthma 789429399 Active 2023 Hollie wheat, [facility] 13:31:51 Hidradeni tis suppurati va 57105686 Active 2024 Hollie wheat, [facility] 13:31:14 Bilateral carpal tunnel syndrome 402111623426 68311 Active 2024 Manda Gonzales MD [address] [place] [address], [facility] 16:54:32 Abscess of axilla 70516247 Active 2024 Manda Gonzales MD [address] [place], [place] [phone], [facility] 17:01:45 Exacerbat ion of moderate persisten t asthma 475184855 Active 2024 Manda Gonzales MD [address] [place] [phone], [facility] 10:33:40 Morbid obesity 042844660 Active 2024 Manda Gonzales MD [address] [place] [phone], [facility] 5 15:18:35 Acute asthma 004394077 Active 2024 Manda Gonzales MD [address] [place] [address], [address], [facility] 17:30:24 Allergic rhinitis 09691007 Active 2024 Manda Gonzales MD [address] [place] [address], [address], [facility] 17:32:26 65594869 Active 2024 [facility] 15:24:34 Pain of knee region 9052575944 Active 2024 Manda Gonzales MD [address] [place] [address], [address], [facility] 13:05:15 Tobacco user 360510064 Active 2024 Manda Gonzales MD [address] [place] [address] 5, [facility] 13:06:47 Problem Notes None recorded. Procedures Surgical History Date Name Laterality Status Provider Name and Address Organization Details Recorded Time 12/12/19 25 Incision/Drainage-S imple completed Manda Gonzales MD [address] [place] [address], [phone], [facility] 12/14/2024 10:28:50 tonsilectomy/adenoi ds [facility] 12/13/2023 15:36:44 Cholecystectomy completed [facility] 12/13/2023 15:36:50 Imaging Results None recorded. Procedure Notes None recorded. Medical Equipment None Reported. Allergies Allergen ID Allergen Name Allergen Category Reaction Reaction Severity Criticality Documentation Date Start Date Code Code System Note Provider Name and Address Organization Details Recorded Time 09557 aspirin medicatio n wheezing Not available Not available 06/24/2023 1191 RxNorm [facility] 14:08:25 08929 wasp venoms environme nt Not available Not available high 07/02/20252024 47969 RxNorm Not Available yessi - External Data [...] day by oral route for 5 days. 12/14/ 2024 02/26 /2025 completed Not Available Not Available Not [...] Last Updated DateTime 162.56 cm 41.4 kg/m2 475389. 76 g 97.5 [degF] 99 % 70 /min 132/90 mm[Hg] [place] [facility] 15:28:35 Social History Question Answer Notes LastModified by Organizat ion Details LastModified Time Tobacco Smoking Status Current Every Day Smoker RAE wheat [facility] 12/13/2023 [...] Or The Highest Degree You Have Received? [id number] Information not available 12/13/2023 Which Of Your Hands Is Dominant? Left Information not available 12/13/2023 What Was The Date Of Your Most Recent Tobacco Screening? 06/16/2025 [email or web address] Information not available 06/16/2025 What Is Your Current Pack Years? 20-29packyear s [email or web address] Information not available 04/28/2025 At What Age Did You Start Smoking Tobacco? 13 Information not available 04/28/2025 How Much Tobacco Do You Smoke? 1 PPD [email or web address] Information not available 04/28/2025 How Many Years Have You Smoked Tobacco? 20 [email or web address] Information not available 04/28/2025 Have You Recently [...] adolescent or pediatric 0 completed [facility] Available [facility] 07/14/2025 12:44:28 Hep A, ped/adol, 2 dose 2 completed Not Available [facility] 07/14/2025 12:44:28 Td (adult), 2 Lf tetanus toxoid, preservative free, adsorbed 2 completed Not Available [facility] 07/14/2025 12:44:28 Hep A, ped/adol, 2 dose 9 completed Not Available [facility] 07/14/2025 12:44:28 influenza, split (incl. purified surface antigen) 9 completed Not Available [facility] 07/14/2025 12:44:28 Tdap 2 completed Not Available [facility] 07/14/2025 12:44:28 Tdap 3 completed Not Available [facility] 07/14/2025 12:44:28 Influenza, split virus, quadrivalent, PF 3 completed Not Available [facility] 07/14/2025 12:44:28 Past Encounters Encounter ID Performer Location Encounter Start Date Encounter Closed Date Diagnosis/Indication Diagnosis SNOMED-CT Code Diagnosis ICD10 Code Diagnosis IMO Codes Diagnosis Note [id number] Manda Gonzales MD [facility] ([facility]) [address] [place] [address] 05/27/2025 17:07:52 05/27/2025 17:36:36 Acute asthma 301395973 J45.099 6865364 - Initiate corticoste roids for exacerbati on control.- Maintain current use of respirator y inhalers including Advair and Albuterol. Allergic rhinitis 726605 04 J30.9 1884462893 - Encourage regular Flonase administra tion. - Consider supplement al antihistam ine therapy if necessary. [id number] Manda Gonzales MD [facility] ([facility]) [address] [place] [address] 06/16/2025 15:12:47 06/16/2025 16:15:38 First trimester 01245836 Z34.91 702951 - Schedule and perform an ultrasound to [...] and cramping, advising vigilance for worsening symptoms. Health Concerns Section Related Observation LastModified by Organization Detai ls LastModified Time None Recorded Concern Status LastModified by Organization Details LastModified Time None Recorded Payers Encounter Date Sequence Insurance Name Policy Number Policy Fernandez Covered Member ID Fernandez Member ID Guarantor Name 06/16/2025 1 [facility] (MEDICAID HMO) Janie Medrano [id number] Janie Medrano Notes Date Note Type Note Provider Name and Address Organization Details Recorded Time 06/16/2025 text/html jr ob routineRep orted by [...] She confirmed her on June 08 at [facility] ER with urine and blood lab tests, [...] hCG result was 4600 Manda Gonzales MD [address] [place] [address], [phone], [facility], [facility] 06/17/2025 10:49:28 OBGyn Episode Ob Episode Information Episode Created Date Number of Fetuses Patient Bloodtype Patient rh Status Prepregnancy Weight lbs Domestic Partner Domestic Partner Phone Father Name Edging Machine Operator Status 06/16/20 25 1 O Positive OPEN Fetus Data First Name Last Name Admitted to NICU Weight (g) Sex Living Outcome Pediatric Complications Fetus ID Race Codes Race Delivery Type 55067 Mahendra Calculation Initial Mahendra Date Initial Exam [...] Weight in lbs Pre/Post Dialysis Refused Weight 241.832724712767 BP Diastolic BP Location Tested BP Systolic [...] in lbs Pre/Post Dialysis Refused With clothes 241.678438964196 BP Diastolic BP Location Tested BP Systolic [...] ated Date of Delivery true Thalassemia (Divehi, German, Mediterranean, Or Background): MCV < 80 false Neural Tube Defect (Meningomyelocele, Spina Bifi da, Or Anencephaly) false Congenital Heart Defect false Down Syndrome false Sigifredo-Sachs (eg, Worship, Cajun, Kyrgyz-[place]) f alse Alesia Disease false Sickle Cell Disease Or Trait () false Hemophilia Or Other Blood Disorders false Muscular Dystrophy false Cystic Fibrosis false [place]'s Chorea false Intellectual Disability/Autism false If Yes, [...]
--- OUTSIDE RECORDS SUMMARY | 2025-07-24 08:01 | XMS_ITS | Encounter Summary ---
Author Organization [facility] Address [address] [place] [address] Care Team Providers Care Bright Cutter Name Role Phone Shima Tavarez Primary Care Provider [phone] [phone] Encounter Details Date Type Department Care Team (Late st Contact Info) Description 09/27/2007 Outpatient Historical [facility] Family Medicine Danita Belle [address] [place] [address] [place] [address] [place] [address] Social History Tobacco Use Types Packs/Day Years Used Date Smoking Tobacco: Never Assessed Comments Unknown Sex and Gender Information Value Date Recorded Sex Assigned at Female 04/12/2024 1:48 AM CDT Legal Sex Female 4:34 AM NUT ORCHARDIST Gender Identity Female 04/12/2024 1:48 AM CDT Sexual Orientation Not on file documented as of this encounter Plan of Treatment Not on file documented as of this encounter Visit Diagnoses Not on filedocumented in this encounter Care Teams Bright Cutter Relationship Specialty Start Date End Date Shima Tavarez FNP [address] [place] [address] PCP - General 12/28/20 documented as of this encounter
--- OUTSIDE RECORDS SUMMARY | 2025-07-24 08:01 | XMS_ITS | Encounter Summary ---
Author Organization [facility] Address [address] [place] [address] Care Team Providers Care Marker Shipments Name Role Phone Shima Tavarez EQUIPMENT MAINTENANCE TECHNICIAN Primary Care Provider [phone] [phone] Encounter Details Date Type Department Care Team [...] AM CDT Legal Sex Female 4:34 AM COLLECTIONS REP Gender Identity Female 04/12/2024 1:48 AM CDT Sexual Orientation Not on file documented as of this encounter Plan of Treatment Not on file documented as of this encounter Procedures Procedure Name Priority Date/Time Associated Diagnosis Comments XR CHEST PA AND LATERAL 2 VW Routine 09/13/2007 2:00 AM COLLECTIONS REP URINALYSIS W/REFLEX MICROSCOPIC Stat 09/13/2007 1:52 AM COLLECTIONS REP documented in this encounter Results * XR CHEST PA AND LATERAL (09/13/2007 2:00 AM COLLECTIONS REP) Anatomical Region Laterality Modality Chest Other 09/13/2007 2:00 AM COLLECTIONS REP Narrative 09/13/2007 7:53 AM COLLECTIONS REP [facility] [address], [place] [address] Admit Date: 09/13/2007 JUNIOR DUNLAP Sex: F Admit Prov: ER, AUTHORIZED P Date: 1990 Primary Care Prov: SHEELA PLEITEZ CMRN: [id number] Room: [facility] SSN: [id number] IMAGING SERVICES Ordering Prov: N/A Accession Number: [id number] Interpretation Chest PA and lateral 09/13/2007 History: Pain. Findings: There is no pulmonary infiltrate, pleural effusion or pneumothorax. The cardiac and mediastinal silhouettes, hilar structures and bony thorax are within normal limits. Impression: No active pulmonary disease. . Dictated by: HEYDI HOUSTON 09/13/2007 07:48 Electronically signed by: HEYDI HOUSTON 09/13/2007 07:53 Transcribed: 09/13/2007 07:48 AMK Procedure Note Heydi Houston - 09/13/[address] [address] Admit Date: 09/13/2007 JUNIOR DUNLAP Sex: F Admit Prov: FRANCINE, AUTHORIZED P Date: 1990 Primary Care Prov: SHEELA PLEITEZ CMRN: [id number] Room: [facility] SSN: [id number] IMAGING SERVICES Ordering Prov: N/A Interpretation Chest PA and lateral 09/13/2007 History: Pain. Findings: There is no pulmonary infiltrate, pleural effusion or pneumothorax. The cardiac and mediastinal silhouettes, hilarstructures and bony thorax are within normal limits. Impression: No active pulmonary disease. . Dictated by: HEYDI HOUSTON 09/13/2007 07:48 Electronically signed by: HEYDI HOUSTON 09/13/2007 07:53 Transcribed: 09/13/2007 07:48 AMK Jose Armando Grant MD DIAGNOSTIC IMAGING ORD ERABLES Final Result * URINALYSIS (09/13/2007 1:52 AM COLLECTIONS REP) SPECIFIC GRAVITY UA 1.001 1.001 - 1.035 [facility] BLOOD UA Negative Negative [facility] GLUCOSE UA Negative Negative [facility] COLOR UA Colorless [facility] NITRITE UA Negative Negative [facility] UROBILINOGEN UA <1 <=1 mg/dL [facility] PH UA 5.5 5.0 - 8.0 [facility] KETONES UA Negative Negative [facility] CLARITY UA Clear Clear [facility] PROTEIN UA Negative Negative [facility] BILIRUBIN UA Negative Negative [facility] LEUKOCYTE ESTERASE UA Negative Negative [facility] Urine, clean catch 09/13/2007 1:52 AM COLLECTIONS REP 09/13/2007 2:00 AM COLLECTIONS REP us Jose Armando Grant MD URINE ORDERABLES Final Result [facility] [address] [place] [address] documented in this encounter Visit Diagnoses Diagnosis Painful respiration documented in this encounter Care Teams Marker Shipments Relationship Specialty Start Date End Date Shima Tavarez FNP [address] [place] [address] PCP - General 12/28/20 documented as of this encounter
--- OUTSIDE RECORDS SUMMARY | 2025-07-24 08:01 | XMS_ITS | Encounter Summary ---
Author Organization [facility] Address [address] [place] [address] Care Team Providers Care Expressive Art Therapist Name Role Phone Shima Tavarez TREASURY AGENT Primary Care Provider [phone] [phone] Encounter Details Date Type Department Care Team (Late st Contact Info) Description 05/30/2005 Emergency [facility] Mitra Lafleur, JUNI [address] [place] [address] Er, Authorized P NO ADDRESS ON FILE CONTUSION ABDOMINAL WALL (Primary Dx) Social History Tobacco Use Types Packs/Day Years Used Date Smoking Tobacco: Never Assessed Comments Unknown Sex and Gender Information Value Date Recorded Sex Assigned at Female 04/12/2024 1:48 AM CDT Legal Sex Female 4:34 AM SERVICE DESK AGENT Gender Identity Female 04/12/2024 1:48 AM CDT Sexual Orientation Not on file documented as of this encounter Plan of Treatment Not on file documented as of this encounter Procedures Procedure Name Priority Date/Time Associated Diagnosis Comments CBC WITH DIFFERENTIAL Routine 05/30/2005 1:37 PM SERVICE DESK AGENT CBC WITH DIFFERENTIAL Routine 05/30/2005 1:37 PM SERVICE DESK AGENT documented in this encounter Results * CBC WITH DIFFERENTIAL (05/30/2005 1:37 PM SERVICE DESK AGENT) NEUTROPHILS 57 36 - 74 % INTERFAC [...] 0.02 K/uL INTERFACE SYSTEM 05/30/2005 1:37 PM SERVICE DESK AGENT Mitra Lafleur NETWORK OPERATIONS MANAGER HEMATOLOGY ORDERABLES Final R esult INTERFACE SYSTEM Refer to clinic/hospital department * (ABNORMAL) CBC WITH DIFFERENTIAL (05/30/2005 1:37 PM SERVICE DESK AGENT) WBC 6.4 4.0 - 9.8 K/uL INTERFACE [...] 12.4 fL INTERFACE SYSTEM 05/30/2005 1:37 PM SERVICE DESK AGENT Mitra Lafleur NETWORK OPERATIONS MANAGER HEMATOLOGY ORDERABLES Final R esult INTERFACE SYSTEM Refer to clinic/hospital department documented in this encounter Visit Diagnoses Diagnosis Contusion of abdominal wall- Primary documented in this encounter Care Teams Expressive Art Therapist Relationship Specialty Start Date End Date Shima Tavarez FNP [address] [place] [address] PCP - General 12/28/20 documented as of this encounter
--- OUTSIDE RECORDS SUMMARY | 2025-07-24 08:01 | XMS_ITS | Encounter Summary ---
Author Organization [facility] Address [address] [place] [address] Care Team Providers Care Explosion Welder Name Role Phone Shima Tavarez QUALITY CONTROL ASSOCIATE Primary Care Provider [phone] Encounter Details Date Type Department Care Team (Late st Contact Info) Description 08/14/2008 Emergency [facility] Er, Authorized P NO ADDRESS ON FILE Austin Willingham MD [address] [place] [address] Social History Tobacco Use Types Packs/Day Years Used Date Smoking Tobacco: Never Assessed Comments Unknown Sex and Gender Information Value Date Recorded Sex Assigned at Female 04/12/2024 1:48 AM CDT Legal Sex Female 4:34 AM MEDICAL PROGRAM SPECIALIST Gender Identity Female 04/12/2024 1:48 AM CDT Sexual Orientation Not on file documented as of this encounter Plan of Treatment Not on file documented as of this encounter Procedures Procedure Name Priority Date/Time Associated Diagnosis Comments XR CHEST PA AND LATERAL 2 VW Routine 08/14/2008 1:55 AM MEDICAL PROGRAM SPECIALIST documented in this encounter Results * XR CHEST PA AND LATERAL (08/14/2008 1:55 AM MEDICAL PROGRAM SPECIALIST) Anatomical Region Laterality Modality Chest Other 08/14/2008 1:55 AM MEDICAL PROGRAM SPECIALIST Narrative 08/14/2008 8:18 AM MEDICAL PROGRAM SPECIALIST [facility] [address] [place], [place] [address] Admit Date: 08/14/2008 JUNIOR DUNLAP Sex: F Admit Prov: ER, AUTHORIZED P Date: 1990 Primary Care Prov: SHEELA PLEITEZ CMRN: [id number] Room: [facility] SSN: [address] [place] [address] IMAGING SERVICES Ordering Prov: N/A Accession Number: [id number] Interpretation Examination: Chest 2 views Clinical History: Shortness of breath. Findings: The silhouettes of the heart, lungs, mediastinum, pleura and bony thorax are within normal limits. There is no infiltration. Impression: Negative. . Dictated by: Abhinav SEPULVEDA 08/14/2008 08:17 Electronically signed by: Abhinav SEPULVEDA 08/14/2008 08:17 Procedure Note Shahzad Sepulveda MD - 08/14/[address] [address] Admit Date: 08/14/2008 JUNIOR DUNLAP Sex: F Admit Prov: ER, AUTHORIZED P Date: 1990 Primary Care Prov: SHEELA PLEITEZ CMRN: [id number] [facility] [address] [place] [address] IMAGING SERVICES Ordering Prov: N/A Interpretation Examination: [...] on filedocumented in this encounter Care Teams Explosion Welder Relationship Specialty Start Date End Date Shima Tavarez FNP [address] [place] [address] PCP - General 12/28/20 documented as of this encounter
--- OUTSIDE RECORDS SUMMARY | 2025-07-24 08:01 | XMS_ITS | Encounter Summary ---
Author Organization [facility] Address [address] [place] [address] Care Team Providers Care Shipping And Receiving Associate Name Role Phone Shima Tavarez Primary Care Provider [phone] [phone] Encounter Details Date Type Department Care Team (Late st Contact Info) Description 09/30/2004 Outpatient Historical [facility] Family Medicine Danita Belle [address] [place] [phone] [place] [address] [address] [place] [address] Social History Tobacco Use Types Packs/Day Years Used Date Smoking Tobacco: Never Assessed Comments Unknown Sex and Gender Information Value Date Recorded Sex Assigned at Female 04/12/2024 1:48 AM CDT Legal Sex Female 4:34 AM CARGO BROKER Gender Identity Female 04/12/2024 1:48 AM CDT Sexual Orientation Not on file documented as of this encounter Plan of Treatment Not on file documented as of this encounter Visit Diagnoses Not on filedocumented in this encounter Care Teams Shipping And Receiving Associate Relationship Specialty Start Date End Date Shima Tavarez FNP [address] [place] [phone] PCP - General 12/28/20 documented as of this encounter
--- OUTSIDE RECORDS SUMMARY | 2025-07-24 08:01 | XMS_ITS | Encounter Summary ---
Author Organization [facility] Address [address] [place] [address] Care Team Providers Care Imaging Tech Name Role Phone Shima Tavarez Primary Care Provider +1 [phone] Encounter Details Date Type Department Care Team (Late st Contact Info) Description 09/27/2007 Outpatient Historical [facility] Family Medicine Danita Belle [address] [place] [address] [place] [address] [place] [address] Social History Tobacco Use Types Packs/Day Years Used Date Smoking Tobacco: Never Assessed Comments Unknown Sex and Gender Information Value Date Recorded Sex Assigned at Female 04/12/2024 1:48 AM CDT Legal Sex Female 4:34 AM SENIOR PASTOR Gender Identity Female 04/12/2024 1:48 AM CDT Sexual Orientation Not on file documented as of this encounter Plan of Treatment Not on file documented as of this encounter Visit Diagnoses Not on filedocumented in this encounter Care Teams Imaging Tech Relationship Specialty Start Date End Date Shima Tavarez FNP [address] [place] [phone] PCP - General 12/28/20 documented as of this encounter
--- OUTSIDE RECORDS SUMMARY | 2025-07-24 08:01 | XMS_ITS | Encounter Summary ---
Author Organization [facility] Address [address] [place] [address] Care Team Providers Care Activity Specialist Name Role Phone Shima Tavarez Primary Care Provider +1 -[phone] Encounter Details Date Type Department Care Team (Late st Contact Info) Description 11/28/2007 [facility] Danita Belle [address] [place] [address] [place] [address] [place] [address] Social History Tobacco Use Types Packs/Day Years Used Date Smoking Tobacco: Never Assessed Comments Unknown Sex and Gender Information Value Date Recorded Sex Assigned at Female 04/12/2024 1:48 AM CDT Legal Sex Female 4:34 AM BUTTING SAW OPERATOR Gender Identity Female 04/12/2024 1:48 AM CDT Sexual Orientation Not on file documented as of this encounter Plan of Treatment Not on file documented as of this encounter Visit Diagnoses Not on filedocumented in this encounter Care Teams Activity Specialist Relationship Specialty Start Date End Date Shima Tavarez FNP [address] [place] [address] PCP - General 12/28/20 documented as of this encounter
--- OUTSIDE RECORDS SUMMARY | 2025-07-24 08:01 | XMS_ITS | Encounter Summary ---
Author Organization [facility] Address [address] [place] [address] Care Team Providers Care Display Designer Outside Name Role Phone Shima Tavarez ASPHALT SURFACE HEATER OPERATOR Primary Care Provider +1 -[phone] Encounter Details Date Type Department Care Team (Late st Contact Info) Description 09/22/2004 Outpatient Historical [facility] Family Medicine [facility] [address] [place] [address] [place] [address] [place] [address] Social History Tobacco Use Types Packs/Day Years Used Date Smoking Tobacco: Never Assessed Comments Unknown Sex and Gender Information Value Date Recorded Sex Assigned at Female 04/12/2024 1:48 AM CDT Legal Sex Female 4:34 AM SENIOR ENGINEERING TECHNICIAN Gender Identity Female 04/12/2024 1:48 AM CDT Sexual Orientation Not on file documented as of this encounter Last Filed Vital Signs Vital Sign Reading Time Taken Comments Blood Pressure 116/70 09/22/2004 1:50 PM SENIOR ENGINEERING TECHNICIAN Pulse 80 09/22/2004 1:50 PM SENIOR ENGINEERING TECHNICIAN Temperature - - Respiratory Rate - - Oxygen Saturation - - Inhaled Oxygen Concentration - - Weight 57.6 kg (127 lb) 09/22/2004 1:50 PM SENIOR ENGINEERING TECHNICIAN Height 161.3 cm (5' 3.5 ) 09/22/2004 1:50 PM SENIOR ENGINEERING TECHNICIAN Body Mass Index 22.14 09/22/2004 1:50 PM SENIOR ENGINEERING TECHNICIAN Body Mass Index Percentile 78.31% 09/22/2004 1:5 0 PM SENIOR ENGINEERING TECHNICIAN Growth Chart: CDC (Girls, 2- 20 Years) documented in this encounter Plan of Treatment Not on file documented as of this encounter Visit Diagnoses Not on filedocumented in this encounter Care Teams Display Designer Outside Relationship Specialty Start Date End Date Shima Tavarez FNP [address] [place] [address] PCP - General 12/28/20 documented as of this encounter
--- OUTSIDE RECORDS SUMMARY | 2025-07-24 08:01 | XMS_ITS | Encounter Summary ---
Author Organization [facility] Address [address] [place] [address] Care Team Providers Care Mattress Spring Encaser Name Role Phone Shima Tavarez Primary Care Provider +1 -[phone] Encounter Details Date Type Department Care Team (Late st Contact Info) Description 05/29/2004 Emergency [facility] Wilda Georges MD [address] [place] [address] Er, Authorized P NO ADDRESS ON FILE HEMORRHAGE COMPLIC PROCEDURE (Primary Dx) Social History Tobacco Use Types Packs/Day Years Used Date Smoking Tobacco: Never Assessed Comments Unknown Sex and Gender Information Value Date Recorded Sex Assigned at Female 04/12/2024 1:48 AM CDT 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
--- OUTSIDE RECORDS SUMMARY | 2025-07-24 08:01 | XMS_ITS | Encounter Summary ---
Author Organization [facility] Address 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
--- OUTSIDE RECORDS SUMMARY | 2025-07-24 08:01 | XMS_ITS | Encounter Summary ---
Author Organization [facility] Address [address] [place] [address] Care Team Providers Care Chemical Sprayer Name Role Phone Shima Tavarez SINTER PRESS OPERATOR Primary Care Provider +1 -[phone] Encounter Details Date Type Department Care Team (Late st Contact Info) Description 08/28/2007 Orders Only [facility] Family Medicine [facility] [address] [place] [address] [place] [address] [place] [address] Social History Tobacco Use Types Packs/Day Years Used Date Smoking Tobacco: Never Assessed Comments Unknown Sex and Gender Information Value Date Recorded Sex Assigned at Female 04/12/2024 1:48 AM CDT Legal Sex Female 4:34 AM THEATRICAL DRESSER Gender Identity Female 04/12/2024 1:48 AM CDT [...] HOME PHONE: PATIENT`S WORK PHONE: PATIENT`S INSURANCE: [employer] WHO TOOK THE CALL: Zohreh Dorsey M GENERAL INFORMATION PATIENT STATUS: Established Patient. PCP: Mauro. ALTERNATIVE PHONE NUMBER: [phone] -- can talk to pt sister or mother. WHO CALLED: Patient called. CURRENT ALLERGY LIST: [facility] NUMBER: [phone] PROBLEMS: CONGESTION: Patient complains of chest congestion, complains of head congestion. The symptoms beganapproximately 2 days ago. COUGH:Patient complains of cough. The symptoms began approximately 2 days ago. Non Productive SORE THROAT: Patient complains of sore throat. The sore throat began approximately 2 days ago. mother is concerned because pt has bronchial asthma. SECTION 1: RN/FORM SETTER SUPERVISOR RESPONSE: orion 08/28/07 at 01:38 pm Pt [...] days, 10 Dispensed, status: NEW PRESCRIPTION, 08[place]28/[place] [facility] [place] ACTION: orion 08/28/07 at 06:03 pm Called pharmacy at 08/28/07 at 06:03 pm. rx called into pharm...Pt advised...amarjit Electronically Signed by: Amarjit Rodrigez on Tuesday, August 28, 2007 documented in this encounter Plan of Treatment Not on file documented as of this encounter Visit Diagnoses Not on filedocumented in this encounter Care Teams Chemical Sprayer Relationship Specialty Start Date End Date Shima Tavarez FNP [address] [place] [phone] PCP - General 12/28/20 documented as of this encounter
--- OUTSIDE RECORDS SUMMARY | 2025-07-24 08:01 | XMS_ITS | Encounter Summary ---
Author Organization [facility] Address [address] [place] [address] Care Team Providers Care Television Tube Inspector Name Role Phone Shima Tavarez Primary Care Provider +1 [phone] Encounter Details Date Type Department Care Team (Late st Contact Info) Description 11/11/2004 Outpatient Historical [facility] Grace Miller MD [address] [place] [phone] NONINFLAM DIS VAGINA NEC (Primary Dx) Social History Tobacco Use Types Packs/Day Years Used Date Smoking Tobacco: Never Assessed Comments Unknown Sex and Gender Information Value Date Recorded Sex Assigned at Female 04/12/2024 1:48 AM CDT Legal Sex Female 4:34 AM FACING CUTTING MACHINE OPERATOR Gender Identity Female 04/12/2024 1:48 AM CDT Sexual Orientation Not on file documented as of this encounter Plan of Treatment Not on file documented as of this encounter Visit Diagnoses Diagnosis Other specified noninflammatory disorder of vagina- Primary documented in this encounter Care Teams Television Tube Inspector Relationship Specialty Start Date End Date Shima Tavarez FNP [address] [place] [phone] PCP - General 12/28/20 documented as of this encounter
--- OUTSIDE RECORDS SUMMARY | 2025-07-24 08:01 | XMS_ITS | Encounter Summary ---
Author Organization [facility] Address [address] [place] [address] Care Team Providers Care It Network Administrator Name Role Phone Shima Tavarez VIDEO CONFERENCE SPECIALIST Primary Care Provider +1 -[phone] Encounter Details Date Type Department Care Team (Latest Contact Info) Description 03/10/2008 Outpatient Historical [facility] Emergency Department [address] [address] Pavithra Sewell MD [address] [place] [address] Absence of Menstruation Social History Tobacco Use Types Packs/Day Years Used Date Smoking Tobacco: Never Assessed Comments Unknown Sex and Gender Information Value Date Recorded Sex Assigned at Female 04/12/2024 1:48 AM CDT Legal Sex Female 4:34 AM AUTO TRANSMISSION TECHNICIAN Gender Identity Female 04/12/2024 1:48 AM [...] T4E,THYROID SCREEN 1.4 0.9 - 1.7 ng/dL [facility] Blood specimen (specimen) 03/10/2008 5:01 PM CDT 03/10/2008 5:19 PM CDT us Pavithra Sewell MD CHEMISTRY ORDERABLES Final Resul t Performing Organization Address City/[facility]/ZIP Co de Phone Number [facility] CLIA# [id number] [address] [place] [address] * (ABNORMAL) TSH REFLEXIVE (03/10/2008 5:01 PM CDT) TSH 7.34(H) 0.27 - 4.20 uU/mL [facility] Blood specimen (specimen) 03/10/2008 5:01 PM CDT 03/10/2008 5:19 PM CDT us Pavithra Sewell MD CHEMISTRY ORDERABLES Final Resul t [facility] CLIA# [id number] [address] [place] [address] * PROLACTIN (03/10/2008 5:01 PM CDT) PROLACTIN 8.45 ng/mL [facility] Comment: Female: Non- Reference Range 18 years - Adult = 4.79 - 23.30 ng/mL No Reference Range Established for patients less than 18 years of age. Blood specimen (specimen) 03/10/2008 5:01 PM CDT 03/10/2008 5:19 PM CDT Pavithra Sewell MD CHEMISTRY ORDERABLES Final Resul t Performing Organization Address [facility] Co de Phone Number [facility] CLIA# [id number] [address] [place] [address] * LUTEINIZING HORMONE (03/10/2008 5:01 PM CDT) LUTEINIZING HORMONE 0.9 0.5 - 41.7 mIU/mL [facility] Comment: Luteinizing Hormone Reference Range: Female: [...] MD CHEMISTRY ORDERABLES Edited Performing Organization Address City/[facility] Co de Phone Number [facility] CLIA# [id number] [address] [place] [address] * INSULIN LEVEL (03/10/2008 5:01 PM CDT) INSULIN LEVEL 11 <17 uIU/mL [facility] Comment: Lab test performed by: Fridge BRIA [id number] [address] AMADOR CHASE MD Blood specimen (specimen) 03/10/2008 5:01 PM CDT 03/10/2008 5:19 PM CDT us Pavithra Sewell MD CHEMISTRY ORDERABLES Final Resul t [facility] CLIA# [id number] [address] [place] [address] * HCG QUANTITATIVE, BLOOD (03/10/2008 5:01 PM CDT) HCG QUANT, BLOOD <5 0 - 5 mIU/mL [facility] Comment: Result of 5 - 25 [...] MD CHEMISTRY ORDERABLES Edited Performing Organization Address [facility] Co de Phone Number [facility] CLIA# [id number] [address] [place] [address] * (ABNORMAL) GLUCOSE LEVEL (03/10/2008 5:01 PM CDT) GLUCOSE 58(L) 60 - 110 mg/dL [facility] Blood specimen (specimen) 03/10/2008 5:01 PM CDT 03/10/2008 5:19 PM CDT us Pavithra Sewell MD CHEMISTRY ORDERABLES Final Resul t Performing Organization Address [facility] de Phone Number [facility] CLIA# [id number] [address] [place] [address] * FSH (03/10/2008 5:01 PM CDT) FSH 1.6 1.6 - 17.0 mIU/mL [facility] Comment: FSH Reference Range: Female: Normally [...] ORDERABLES Final Resul t Performing Organization Address [facility] Co de Phone Number [facility] CLIA# [id number] [address] [place] [address] * HEPATIC FUNCTION PANEL (03/10/2008 5:01 PM CDT) BILIRUBIN DIRECT 0.1 0.0 - 0.3 mg/dL [facility] AST 22 12 - 32 U/L [facility] ALBUMIN 4.5 3.2 - 4.5 g/dL [facility] ALT 24 0 - 31 U/L [facility] BILIRUBIN TOTAL 0.2 0.2 - 1.0 mg/dL [facility] ALKALINE PHOSPHATASE 84 35 - 187 U/L [facility] TOTAL PROTEIN 7.3 6.3 - 8.6 g/dL [facility] Blood specimen (specimen) 03/10/2008 5:01 PM CDT 03/10/2008 5:19 PM CDT us Pavithra Sewell MD CHEMISTRY ORDERABLES Final Resul t [facility] CLIA# [id number] [address] [address] * (ABNORMAL) LIPID PANEL (03/10/2008 5:01 PM CDT) Pathologist [facility] HDL 73 36 - 76 mg/dL [facility] CHOLESTEROL 171(H) 90 - 169 mg/dL [facility] CHOL/HDL RATIO 2.3 2.0 - 5.0 [facility] TRIGLYCERIDE 113 40 - 136 mg/dL [facility] LDL CALCULATED 75 <=109 mg/dL [facility] LIPID PANEL COMMENT See Below [facility] Comment: The adult ATP and pediatric NCEP classifications for lipids are available on the [facility] Intranet at: [email or web address] Select: Lab Policies and Procedures,Current Select: Lipid Panel Interpretation Blood specimen (specimen) 03/10/2008 5:01 PM CDT 03/10/2008 5:19 PM CDT us Pavithra Sewell MD CHEMISTRY ORDERABLES Edited [facility] CLIA# [id number] [address] [place] [address] documented in this encounter Visit Diagnoses Diagnosis Absence of menstruation documented in this encounter Care Teams It Network Administrator Relationship Specialty Start Date End Date Shima Tavarez FNP [address] [place] [place] [address] PCP - General 12/28/20 documented as of this encounter
--- OUTSIDE RECORDS SUMMARY | 2025-07-24 08:01 | XMS_ITS | Encounter Summary ---
Author Organization [facility] Address [address] [place] [address] Care Team Providers Care Handbook Writer Name Role Phone Shima Tavarez Primary Care Provider +1 -[phone] Encounter Details Date Type Department Care Team (Late st Contact Info) Description 11/04/2005 Outpatient Historical [facility] [address] [place] [address] [place] [address] [place] [address] Social History Tobacco Use Types Packs/Day Years Used Date Smoking Tobacco: Never Assessed Comments Unknown Sex and Gender Information Value Date Recorded Sex Assigned at Female 04/12/2024 1:48 AM CDT 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
--- OUTSIDE RECORDS SUMMARY | 2025-07-24 08:01 | XMS_ITS | Encounter Summary ---
Author Organization [facility] Address [address] [place] [address] Care Team Providers Care Janitorial Services Supervisor Name Role Phone Shima Tavarez Primary Care Provider +1 -[phone] Encounter Details Date Type Department Care Team (Late st Contact Info) Description 05/25/2006 Emergency [facility] Heydi Miguel [...] AM CDT Legal Sex Female 4:34 AM JAVA ANDROID DEVELOPER Gender Identity Female 04/12/2024 1:48 AM CDT Sexual Orientation Not on file documented as of this encounter Plan of Treatment Not on file documented as of this encounter Visit Diagnoses Diagnosis Sprain and strain of unspecified site of knee and leg- Primary documented in this encounter Care Teams Janitorial Services Supervisor Relationship Specialty Start Date End Date Shima Tavarez FNP [address] [place] [address] PCP - General 12/28/20 documented as of this encounter
--- OUTSIDE RECORDS SUMMARY | 2025-07-24 08:01 | XMS_ITS | Encounter Summary ---
Author Organization [facility] Address [address] [place] [address] Care Team Providers Care Courtesy Car Driver Name Role Phone Shima Tavarez Primary Care Provider +1 -[phone] Encounter Details Date Type Department Care Team (Late st Contact Info) Description 10/02/2007 Outpatient Historical [facility] Medicine [place] [address] [place] [address] Other, Stl NO ADDRESS ON FILE Social History Tobacco Use Types Packs/Day Years Used Date Smoking Tobacco: Never Assessed Comments Unknown Sex and Gender Information Value Date Recorded Sex Assigned at Female 04/12/2024 1:48 AM CDT Legal Sex Female 4:34 AM TECHNICAL PROFESSIONAL Gender Identity Female 04/12/2024 1:48 AM CDT Sexual Orientation Not on file documented as of this encounter Plan of Treatment Not on file documented as of this encounter Visit Diagnoses Not on filedocumented in this encounter Care Teams Courtesy Car Driver Relationship Specialty Start Date End Date Shima Tavarez FNP [address] [place] [address] PCP - General 12/28/20 documented as of this encounter
--- OUTSIDE RECORDS SUMMARY | 2025-07-24 08:01 | XMS_ITS | Encounter Summary ---
Author Organization [facility] Address [address] [place] [address] Care Team Providers Care Concrete Paver Name Role Phone Shima Tavarez Primary Care Provider +1 -[phone] Encounter Details Date Type Department Care Team (Late st Contact Info) Description 11/25/2003 Outpatient Historical [facility] Family Medicine Danita Belle [address] [facility] [address] [place] [address] [place] [address] [facility] [address] [address] [place] [address] Social History Tobacco Use Types Packs/Day Years Used Date Smoking Tobacco: Never Assessed Comments Unknown Sex and Gender Information Value Date Recorded Sex Assigned at Female 04/12/2024 1:48 AM CDT Legal Sex Female 4:34 AM HEMOTHERAPIST Gender Identity Female 04/12/2024 1:48 AM CDT Sexual Orientation Not on file documented as of this encounter Plan of Treatment Not on file documented as of this encounter Visit Diagnoses Not on filedocumented in this encounter Care Teams Concrete Paver Relationship Specialty Start Date End Date Shima Tavarez FNP [address] [place] [phone] PCP - General 12/28/20 documented as of this encounter
--- OUTSIDE RECORDS SUMMARY | 2025-07-24 08:01 | XMS_ITS | Continuity of Care Document ---
Author Organization [facility] Mehrdad Kebede [facility], [facility] ([facility]) Address [address] [place] [address] Care Team Providers Care Board Attendant Name Role Phone MANDA GONZALES Primary Care Provider Assessment No assessment recorded. Plan of Treatment Reminders Order Date Submit [...] d. Imaging None recorde d. Medication Orders None recorde d. Patient TargetsNo targets recorded. Patient InstructionsNo instructions recorded. Reason for Referral None Reported. Results Created Date Observation Date Name Description Value Unit Range Abnormal Flag Note LastModifiedBy Organization Detail LastModifiedTime 06/16/2006/17/2025 HCG, [place] , [place] [address] mIU/m L high Refer ence Range Nonpr [...] appro aleisha by the FDA or the [facility] act[facility] er of the assay . Not Available [facility] [address] [place], [address], 06/17/2025 09:08:32 06/20/20 25 06/21/2025 HCG, TOTAL , [place] [address] mIU/m L high Refer ence Range Nonpr [...] appro aleisha by the FDA or the [facility] actur er of the assay . Not Available [facility] [address] [place], [address], 06/21/2025 06:41:40 07/07/20 25 07/01/2025 US, obste tric, 1st trime ster No observ ation record ed. [email or web address] [facility] [address] [place], [address], 07/07/2025 16:18:33 Result Notes None recorded. Problems Name Problem SNOMED Code Status Onset Date Resolution Date Notes Provider Name and Address Organization Details Recorded Time Migraine 84631400 Active 2023 Hollie wheat [facility] 13:31:30 Insomnia 628374063 Active 2023 Hollie wheat, [facility] 13:31:24 Anxiety 19681910 Active 2023 Hollie wheat, [facility] 13:30:55 Fatigue 39835523 Completed 202310/06/2024 Hollie wheat [facility] 5 13:32:31 Polycysti c ovary syndrome 468799397 Active 2023 Hollie wheat, [facility] 5 13:31:59 Moderate persisten t asthma 392016417 Active 2023 Hollie wheat, [facility] 5 13:31:51 Hidradeni tis suppurati va 38785910 Active 2024 Hollie wheat, [facility] 5 13:31:14 Bilateral carpal tunnel syndrome 765186693867 49754 Active 2024 Manda Gonzales MD [address] [place] [address], [phone], [facility] 16:54:32 Abscess of axilla 58913668 Active 2024 Manda Gonzales MD [address] [place] [address], [address], [facility] 5 17:01:45 Exacerbat ion of moderate persisten t asthma 774877515 Active 2024 Manda Gonzales MD [address] [place] [address], [address], [facility] 10:33:40 Morbid obesity 791440793 Active 2024 Manda Gonzales MD [address] [place], [place] [phone] 5, [facility] 15:18:35 Acute asthma 573055049 Active 2024 Manda Gonzales MD [address] [place] [address], [address], [facility] 17:30:24 Allergic rhinitis 75435366 Active 2024 Manda Gonzales MD [address] [place] [address], [phone], [facility] 17:32:26 70060970 Active 2024 [facility] 15:24:34 Pain of knee region 4130902016 Active 2024 Manda Gonzales MD [address] [place] [address], [address], [facility] 13:05:15 Tobacco user 780334549 Active 2024 Manda Gonzales MD [address] [place] [phone], [facility] 13:06:47 Problem Notes None recorded. Procedures Surgical History Date Name Laterality Status Provider Name and Address Organization Details Recorded Time 12/12/19 25 Incision/Drainage-S imple completed Manda Gonzales MD [address] [place] [address], [phone], [facility] 12/14/2024 10:28:50 tonsilectomy/adenoi ds completed [facility] 12/13/2023 15:36:[address] [facility] 12/13/2023 15:36:50 Imaging Results None recorded. Procedure Notes None recorded. Medical Equipment None Reported. Allergies Allergen ID Allergen Name Allergen Category Reaction Reaction Severity Criticality Documentation Date Start Date Code Code System Note Provider Name and Address Organization Details Recorded Time 42802 aspirin medicatio n wheezing Not available Not available 06/24/2023 1191 RxNorm REY wheat [facility] 3 14:08:25 87661 wasp venoms environme nt Not available Not available [facility] 07/02/20252024 61518 RxNorm Not Available yessi - External Data [...] Not Available Not Available Not Available Vitals None Recorded Social History Question Answer Notes LastModified by Organizat ion Details LastModified Time Tobacco Smoking Status Current Every Day Smoker ARE wheat [facility], [facility] 12/13/2023 15:38:31 Do You Have An Advance [...] Or The Highest Degree You Have Received? [id number] Information not available 12/13/2023 Which Of Your Hands Is Dominant? Left Information not available 12/13/2023 What Was The Date Of Your Most Recent Tobacco Screening? 06/16/2025 Information not available 06/16/2025 What Is Your Current Pack Years? 20-29packyear s [email or web address] Information not available 04/28/2025 At What Age Did You Start Smoking Tobacco? 13 [email or web address] Information not available 04/28/2025 How Much Tobacco Do You Smoke? 1 PPD [email or web address] Information not available 04/28/2025 How Many Years Have You Smoked Tobacco? 20 [email or web address] Information not available 04/28/2025 Have You Recently [...] adolescent or pediatric 0 completed Not Available [facility] 07/14/2025 12:44:28 Hep A, ped/adol, 2 dose 2 completed Not Available [facility] 07/14/2025 12:44:28 Td (adult), 2 Lf tetanus [...] ICD10 Code Diagnosis IMO Codes Diagnosis Note [id number] Manda Gonzales MD [facility] ([facility]) [address] [place] [phone] 06/16/2025 15:12:47 06/16/2025 16:15:38 First trimester [id number] Z34.91 202477 - Schedule and perform an ultrasound to [...] and cramping, advising vigilance for worsening symptoms. [id number] Manda Gonzales MD [facility] ([facility]) [address] [place] [phone] 07/01/2025 12:42:15 07/01/2025 14:18:36 Health Concerns Section Related Observation LastModified by Organization Detai ls LastModified Time None Recorded Concern Status LastModified by Organization Details LastModified Time None Recorded Payers Encounter Date Sequence Insurance Name Policy Number Policy Fernandez Covered Member ID Fernandez Member ID Guarantor Name 07/01/2025 1 [facility] (MEDICAID HMO) Janie Medrano [id number] Janie Medrano OBGyn Episode Ob Episode Information Episode Created Date Number of Fetuses Patient Bloodtype Patient rh Status Prepregnancy Weight lbs Domestic Partner Domestic Partner Phone Father Name Photolettering Machine Operator Status 06/16/20 25 1 O Positive OPEN Fetus Data First Name Last Name Admitted to NICU Weight (g) Sex Living Outcome Pediatric Complications Fetus ID Race Codes Race Delivery Type [id number] Mahendra Calculation Initial Mahendra Date Initial Exam [...] Weight in lbs Pre/Post Dialysis Refused Weight 241.273473006037 BP Diastolic BP Location Tested BP Systolic [...] in lbs Pre/Post Dialysis Refused With clothes 241.394560037578 BP Diastolic BP Location Tested BP Systolic [...] Estim ated Date of Delivery true Thalassemia (Pashto, Maltese, Mediterranean, Or Background): MCV < 80 false Neural Tube Defect (Meningomyelocele, Spina Bifi da, Or Anencephaly) false Congenital Heart Defect false Down Syndrome false Sigifredo-Sachs (eg, Mu-Ism, Cajun, Senegalese-[place]) f alse Alesia Disease false Sickle Cell Disease Or Trait () false Hemophilia Or Other Blood Disorders false Muscular Dystrophy false Cystic Fibrosis false Clackamas's Chorea false Intellectual Disability/Autism false If Yes, [...]
--- OUTSIDE RECORDS SUMMARY | 2025-07-24 08:01 | XMS_ITS | Encounter Summary ---
Author Organization [facility] Address [address] [place] [address] Care Team Providers Care Ghost Writer Name Role Phone Shima Tavarez MARKETING PRODUCTION SPECIALIST Primary Care Provider [phone] [phone] Encounter Details Date Type Department Care Team (Late st Contact Info) Description 04/28/2004 Outpatient Historical [facility] Family Medicine [facility] [address] [address] [place] [address] Grace [place] [address] Social History Tobacco Use Types Packs/Day Years Used Date Smoking Tobacco: Never Assessed Comments Unknown Sex and Gender Information Value Date Recorded Sex Assigned at Female 04/12/2024 1:48 AM CDT Legal Sex Female 4:34 AM GEOCHEMICAL LABORATORY TECHNICIAN Gender Identity Female 04/12/2024 1:48 AM [...] on filedocumented in this encounter Care Teams Ghost Writer Relationship Specialty Start Date End Date Shima Tavarez FNP [address] [place] [phone] PCP - General 12/28/20 documented as of this encounter
--- OUTSIDE RECORDS SUMMARY | 2025-07-24 08:01 | XMS_ITS | Encounter Summary ---
Author Organization [facility] Address [address] [place] [address] Care Team Providers Care Roller Staker Name Role Phone Shima Tavarez Primary Care Provider +1 [phone] Encounter Details Date Type Department Care Team [...] AM CDT Legal Sex Female 4:34 AM INTEGRATION MANAGER Gender Identity Female 04/12/2024 1:48 AM CDT Sexual Orientation Not on file documented as of this encounter Plan of Treatment Not on file documented as of this encounter Visit Diagnoses Diagnosis Unspecified viral infection, in conditions classified elsewhere and of unspecified site- Primary documented in this encounter Care Teams Roller Staker Relationship Specialty Start Date End Date Shima Tavarez FNP [address] [place] [address] PCP - General 12/28/20 documented as of this encounter
--- OUTSIDE RECORDS SUMMARY | 2025-07-24 08:01 | XMS_ITS | Encounter Summary ---
Author Organization [facility] Address [address] [place] [address] Care Team Providers Care Sheet Metal Superintendent Name Role Phone Shima Tavarez RESTAURANT DISTRICT MANAGER Primary Care Provider [phone] [phone] Encounter Details Date Type Department Care Team (Late st Contact Info) Description 04/01/2008 Outpatient Historical [facility] [address] [address] Pavithra Sewell MD [address] [place] [address] Social History Tobacco Use Types Packs/Day Years Used Date Smoking Tobacco: Never Assessed Comments Unknown Sex and Gender Information Value Date Recorded Sex Assigned at Female 04/12/2024 1:48 AM CDT Legal Sex Female 4:34 AM ORDER PACKER OR PACKAGER Gender Identity Female 04/12/2024 1:48 AM CDT [...] CDT) TSH 3.30 0.27 - 4.20 uU/mL [facility] Blood specimen (specimen) 04/01/2008 4:10 PM CDT 04/01/2008 4:10 PM CDT us Pavithra Sewell MD CHEMISTRY ORDERABLES Final Resul t Performing Organization Address [facility] Phone Number INTERFACE SYSTEM Refer to clinic/hospital department [facility] CLIA# [id number] [address] [place] [address] * T4 FREE (04/01/2008 4:10 PM CDT) T4 FREE 1.2 0.9 - 1.7 ng/dL [facility] Blood specimen (specimen) 04/01/2008 4:10 PM CDT 04/01/2008 4:10 PM CDT us Pavithra Sewell MD CHEMISTRY ORDERABLES Final Resul t Performing Organization Address [facility] Phone Number INTERFACE SYSTEM Refer to clinic/hospital department [facility] CLIA# [id number] [address] [place] [address] * T3 FREE (04/01/2008 4:10 PM CDT) T3 FREE 3.2 2.5 - 4.4 pg/mL [facility] Blood specimen (specimen) 04/01/2008 4:10 PM CDT 04/01/2008 4:10 PM CDT us Pavithra Sewell MD CHEMISTRY ORDERABLES Final Resul t Performing Organization Address City/[facility] de Phone Number INTERFACE SYSTEM Refer to clinic/hospital department [facility] CLIA# [id number] [address] [place] [address] documented in this encounter Visit Diagnoses Not on filedocumented in this encounter Care Teams Sheet Metal Superintendent Relationship Specialty Start Date End Date Shima Tavarez FNP [address] [place] [phone] PCP - General 12/28/20 documented as of this encounter
--- OUTSIDE RECORDS SUMMARY | 2025-07-24 08:01 | XMS_ITS | Encounter Summary ---
Author Organization [facility] Address [address] [place] [address] Care Team Providers Care Liquid Compounder Name Role Phone Shima Tavarez Primary Care Provider [phone] [phone] Encounter Details Date Type Department Care Team (Late st Contact Info) Description 09/30/2004 Outpatient Historical [facility] Family Medicine Danita Belle [address] [facility] [address] [place] [phone] [place] [address] [address] [facility] [place] [address] Social History Tobacco Use Types Packs/Day Years Used Date Smoking Tobacco: Never Assessed Comments Unknown Sex and Gender Information Value Date Recorded Sex Assigned at Female 04/12/2024 1:48 AM CDT Legal Sex Female 4:34 AM GENERAL MAINTENANCE TECHNICIAN Gender Identity Female 04/12/2024 1:48 AM CDT Sexual Orientation Not on file documented as of this encounter Plan of Treatment Not on file documented as of this encounter Visit Diagnoses Not on filedocumented in this encounter Care Teams Liquid Compounder Relationship Specialty Start Date End Date Shima Tavarez FNP [address] [place] [phone] PCP - General 12/28/20 documented as of this encounter
--- OUTSIDE RECORDS SUMMARY | 2025-07-24 08:01 | XMS_ITS | Encounter Summary ---
Author Organization [facility] Address [address] [place] [address] Care Team Providers Care Pilot Boat Deckhand Name Role Phone Shima Tavarez Primary Care Provider [phone] [phone] Encounter Details Date Type Department Care Team (Late st Contact Info) Description 04/07/2005 Emergency [facility] Wilda Georges MD [address] [place] [address] Er, Authorized P NO ADDRESS ON FILE LOWER LEG INJURY NOS (Primary Dx) Social History Tobacco Use Types Packs/Day Years Used Date Smoking Tobacco: Never Assessed Comments Unknown Sex and Gender Information Value Date Recorded Sex Assigned at Female 04/12/2024 1:48 AM CDT Legal Sex Female 4:34 AM COMMERCIAL AGENT Gender Identity Female 04/12/2024 1:48 AM CDT Sexual Orientation Not on file documented as of this encounter Plan of Treatment Not on file documented as of this encounter Visit Diagnoses Diagnosis Injury, other and unspecified, knee, leg, ankle, and foot- Primary documented in this encounter Care Teams Pilot Boat Deckhand Relationship Specialty Start Date End Date Shima Tavarez FNP [address] [place] [phone] PCP - General 12/28/20 documented as of this encounter
--- OUTSIDE RECORDS SUMMARY | 2025-07-24 08:01 | XMS_ITS | Encounter Summary ---
Author Organization [facility] Address [address] [place] [address] Care Team Providers Care Information Services Vice President Name Role Phone Shima Tavarez RADIATOR SPECIALIST Primary Care Provider [phone] [phone] Encounter Details Date Type Department Care Team (Latest Contact Info) Description 10/18/2007 [place] [address] [facility] [address] [place] [address] Painful Respiration Social History Tobacco Use Types Packs/Day Years Used Date Smoking Tobacco: Never Assessed Comments Unknown Sex and Gender Information Value Date Recorded Sex Assigned at Female 04/12/2024 1:48 AM CDT Legal Sex Female 4:34 AM AUTOMATIC CHIEF Gender Identity Female 04/12/2024 1:48 AM [...] AM CDT Narrative 10/18/2007 10:26 AM CDT [facility] [address] [place], [place] [address] Admit Date: 10/18/2007 JUNIOR DUNLAP Sex: F Admit Prov: HOLLY LOPEZ Date: 1990 Primary Care Prov: SHEELA PLEITEZ CMRN: [id number] Room: [facility] SSN: [address] [place] [address] IMAGING SERVICES Ordering Prov: N/A Accession Number: [id number] Interpretation Examination: Chest with right ribs. 4 views. Clinical History: Pain. Findings: Chest examination fails to demonstrate pleural, pulmonary, or mediastinal abnormality. Heart size is normal. There is no evidence of right rib fracture. Impression: Normal chest with right ribs. . Dictated by: Abhinav SEPULVEDA 10/18/2007 10:25 Electronically signed by: Abhinav SEPULVEDA 10/18/2007 10:26 Procedure Note Provider, Historical - 10/18/[address] [address] Admit Date: 10/18/2007 JUNIOR DUNLAP Sex: F Admit Prov: HOLLY LOPEZ Date: 1990 Primary Care Prov: SHEELA PLEITEZ CMRN: [id number] Room: [facility] SSN: [address] [place] [address] IMAGING SERVICES Ordering Prov: N/A Interpretation Examination: [...] respiration documented in this encounter Care Teams Information Services Vice President Relationship Specialty Start Date End Date Shima Tavarez FNP [address] [place] [phone] PCP - General 12/28/20 documented as of this encounter
--- OUTSIDE RECORDS SUMMARY | 2025-07-24 08:01 | XMS_ITS | Encounter Summary ---
Author Organization [facility] Address [address] [place] [address] Care Team Providers Care Fire Management Specialist Name Role Phone Shima Tavarez Primary Care Provider +1 [phone] Encounter Details Date Type Department Care Team (Late st Contact Info) Description 07/20/2004 Emergency [facility] Holly Arthur MD NO ADDRESS ON FILE Er, Authorized P NO ADDRESS ON FILE MIGRAINE NOS W/O MENTN INTRACTABLE (Primary Dx) Social History Tobacco Use Types Packs/Day Years Used Date Smoking Tobacco: Never Assessed Comments Unknown Sex and Gender Information Value Date Recorded Sex Assigned at Female 04/12/2024 1:48 AM CDT Legal Sex Female 4:34 AM HATCHERY WORKER Gender Identity Female 04/12/2024 1:48 AM CDT Sexual Orientation Not on file documented as of this encounter Plan of Treatment Not on file documented as of this encounter Visit Diagnoses Diagnosis Migraine, unspecified, without mention of intractable migraine without mention of status migrainosus- Primary documented in this encounter Care Teams Fire Management Specialist Relationship Specialty Start Date End Date Shima Tavarez FNP [address] [place] [address] PCP - General 12/28/20 documented as of this encounter
--- OUTSIDE RECORDS SUMMARY | 2025-07-24 08:01 | XMS_ITS | Encounter Summary ---
Author Organization [facility] Address [address] [place] [address] Care Team Providers Care Copping Machine Operator Name Role Phone Shima Tavarez BATTERY CHARGER TESTER Primary Care Provider +1 [phone] Encounter Details Date Type Department Care Team (Late st Contact Info) Description 08/12/2008 Emergency [facility] Er, Authorized P NO ADDRESS ON FILE Eduardo Leon, DO [address] [place] [address] Social History Tobacco Use Types Packs/Day Years Used Date Smoking Tobacco: Never Assessed Comments Unknown Sex and Gender Information Value Date Recorded Sex Assigned at Female 04/12/2024 1:48 AM CDT Legal Sex Female 4:34 AM PRE WAVE ASSEMBLER Gender Identity Female 04/12/2024 1:48 AM CDT Sexual Orientation Not on file documented as of this encounter Plan of Treatment Not on file documented as of this encounter Procedures Procedure Name Priority Date/Time Associated Diagnosis Comments POC , URINE Routine 08/12/2008 3:02 AM PRE WAVE ASSEMBLER XR CHEST PA AND LATERAL 2 VW Routine 08/12/2008 2:36 AM PRE WAVE ASSEMBLER documented in this encounter Results * POC , URINE (08/12/2008 3:02 AM PRE WAVE ASSEMBLER) , URINE POC Negative Negative [facility] SPECIFIC GRAVITY UA 1.010 1.001 - 1.035 [facility] Urine specimen (specimen) 08/12/2008 3:02 AM PRE WAVE ASSEMBLER 08/12/2008 3:02 AM PRE WAVE ASSEMBLER us Authorized P Er POINT OF CARE TESTING Final Resu lt INTERFACE SYSTEM Refer to clinic/hospital department [facility] CLIA# [id number] [address] [place] [address] * XR CHEST PA AND LATERAL (08/12/2008 2:36 AM PRE WAVE ASSEMBLER) Anatomical Region Laterality Modality Chest Other 08/12/2008 2:36 AM PRE WAVE ASSEMBLER Narrative 08/12/2008 8:12 AM PRE WAVE ASSEMBLER [facility] [address] [place], [place] [address] Admit Date: 08/12/2008 JUNIOR DUNLAP Sex: F Admit Prov: ER, AUTHORIZED P Date: 1990 Primary Care Prov: SHEELA PLEITEZ CMRN: [id number] Room: [facility] SSN: [id number] IMAGING SERVICES Ordering Prov: N/A Accession Number: [id number] Interpretation Examination: Chest 2 views Clinical History: Cough Findings: The silhouettes of the heart, lungs, mediastinum, pleura and bony thorax are within normal limits. There is no infiltration. Impression: Negative. . Dictated by: Abhinav SEPULVDEA 08/12/2008 08:10 Electronically signed by: Abhinav SEPULVEDA 08/12/2008 08:11 Procedure Note Shahzad Sepulveda MD - 08/12/2008 [facility] [address] [place], [place] [address] Admit Date: 08/12/2008 JUNIOR DUNLAP Sex: F Admit Prov: ER, AUTHORIZED P Date: 1990 Primary Care Prov: SHEELA PLEITEZ CMRN: [id number] Room: ER-A SSN: [id number] IMAGING SERVICES Ordering Prov: N/A Interpretation Examination: Chest 2 views Clinical History: Cough Findings: The silhouettes of the heart, lungs, mediastinum, pleuraand bony thorax are within normal limits. There is no infiltration. Impression: Negative. . Dictated by: Abhinav SEPULVEDA 08/12/2008 08:10 Electronically signed by: Abhinav SEPULVEDA 08/12/2008 08:11 Eduardo Leon DO DIAGNOSTIC IMAGING ORDERABLES Final Result documented in this encounter Visit Diagnoses Not on filedocumented in this encounter Care Teams Copping Machine Operator Relationship Specialty Start Date End Date Shima Tavarez FNP [address] [place] [address] PCP - General 12/28/20 documented as of this encounter
--- OUTSIDE RECORDS SUMMARY | 2025-07-24 08:01 | XMS_ITS | Encounter Summary ---
Author Organization [facility] Address [address] [place] [address] Care Team Providers Care Spine Nurse Name Role Phone Shima TavarezP Primary Care Provider +1 [phone] Encounter Details Date Type Department Care Team (Late st Contact Info) Description 10/08/2004 Outpatient Historical [facility] Family Medicine [facility] [address] [place] [address] [place] [address] [place] [address] Social History Tobacco Use Types Packs/Day Years Used Date Smoking Tobacco: Never Assessed Comments Unknown Sex and Gender Information Value Date Recorded Sex Assigned at Female 04/12/2024 1:48 AM CDT Legal Sex Female 4:34 AM RISK LEAD Gender Identity Female 04/12/2024 1:48 AM CDT Sexual Orientation Not on file documented as of this encounter Last Filed Vital Signs Vital Sign Reading Time Taken Comments Blood Pressure 100/70 10/08/2004 11:00 AM RISK LEAD Pulse 86 10/08/2004 11:00 AM RISK LEAD Temperature 36.1 C (96.9 F) 10/08/2004 11:00 AM RISK LEAD Respiratory Rate - - Oxygen Saturation - - Inhaled Oxygen Concentration - - Weight 59 kg (130 lb) 10/08/2004 11:00 AM RISK LEAD Height - - Body Mass Index - - documented in this encounter Plan of Treatment Not on file documented as of this encounter Visit Diagnoses Not on filedocumented in this encounter Care Teams Spine Nurse Relationship Specialty Start Date End Date Shima Tavarez, ROXIE [address] [place] [phone] PCP - General 12/28/20 documented as of this encounter
--- OUTSIDE RECORDS SUMMARY | 2025-07-24 08:01 | XMS_ITS | Encounter Summary ---
Author Organization [facility] Address [address] [place] [address] Care Team Providers Care Panelboard Assembler Name Role Phone Shima Tavarez Primary Care Provider +1 -[phone] Encounter Details Date Type Department Care Team (Latest Contact Info) Description 01/31/2008 [place]patient [place] [address] [facility] [address] [place] [address] Absence of Menstruation Social History Tobacco Use Types Packs/Day Years Used Date Smoking Tobacco: Never Assessed Comments Unknown Sex and Gender Information Value Date Recorded Sex Assigned at Female 04/12/2024 1:48 AM CDT Legal Sex Female 4:34 AM IMAGING ADMINISTRATOR Gender Identity Female 04/12/2024 1:48 AM CDT Sexual Orientation Not on file documented as of this encounter Plan of Treatment Not on file documented as of this encounter Visit Diagnoses Diagnosis Absence of menstruation documented in this encounter Care Teams Panelboard Assembler Relationship Specialty Start Date End Date Shima Tavarez FNP [address] [place] [address] PCP - General 12/28/20 documented as of this encounter
--- OUTSIDE RECORDS SUMMARY | 2025-07-24 08:01 | XMS_ITS | Encounter Summary ---
Author Organization [facility] Address [address] [place] [address] Care Team Providers Care Visual Education Director Name Role Phone Shima Tavarez Dena GAONAP Primary Care Provider +1 -[phone] Encounter Details Date Type Department Care Team (Late st Contact Info) Description 09/08/2004 Outpatient Historical [facility] Family Medicine [facility] [address] [place] [address] [place] [address] Social History Tobacco Use Types Packs/Day Years Used Date Smoking Tobacco: Never Assessed Comments Unknown Sex and Gender Information Value Date Recorded Sex Assigned at Female 04/12/2024 1:48 AM CDT Legal Sex Female 4:34 AM ELECTRICAL RESEARCH ENGINEER Gender Identity Female 04/12/2024 1:48 AM CDT Sexual Orientation Not on file documented as of this encounter Last Filed Vital Signs Vital Sign Reading Time Taken Comments Blood Pressure - - Pulse 88 09/08/2004 2:15 PM ELECTRICAL RESEARCH ENGINEER Temperature 35.4 C (95.8 F) 09/08/2004 2:15 PM ELECTRICAL RESEARCH ENGINEER Respiratory Rate - - Oxygen Saturation - - Inhaled Oxygen Concentration - - Weight 56.7 kg (125 lb) 09/08/2004 2:15 PM ELECTRICAL RESEARCH ENGINEER Height - - Body Mass Index - - documented in this encounter Plan of Treatment Not on file documented as of this encounter Visit Diagnoses Not on filedocumented in this encounter Care Teams Visual Education Director Relationship Specialty Start Date End Date Shima Tavarez FNP [address] [place] [phone] PCP - General 12/28/20 documented as of this encounter
--- OUTSIDE RECORDS SUMMARY | 2025-07-24 08:01 | XMS_ITS | Encounter Summary ---
Author Organization [facility] Address [address] [place] [address] Care Team Providers Care Mainframe Systems Programmer Name Role Phone Shima Tavarez Primary Care Provider +1 [phone] Encounter Details Date Type Department Care Team (Late st Contact Info) Description 10/01/2007 Outpatient Historical [facility] Family Medicine Danita Belle [address] [place] [address] [place] [address] [place] [address] Social History Tobacco Use Types Packs/Day Years Used Date Smoking Tobacco: Never Assessed Comments Unknown Sex and Gender Information Value Date Recorded Sex Assigned at Female 04/12/2024 1:48 AM CDT Legal Sex Female 4:34 AM DIRECTOR PATIENT ACCOUNTING Gender Identity Female 04/12/2024 1:48 AM CDT Sexual Orientation Not on file documented as of this encounter Plan of Treatment Not on file documented as of this encounter Visit Diagnoses Not on filedocumented in this encounter Care Teams Mainframe Systems Programmer Relationship Specialty Start Date End Date Shima Tavarez FNP [address] [place] [phone] PCP - General 12/28/20 documented as of this encounter
--- OUTSIDE RECORDS SUMMARY | 2025-07-24 08:01 | XMS_ITS | Encounter Summary ---
Author Organization [facility] Address [address] [place] [address] Care Team Providers Care Dyehouse Worker Name Role Phone Shima Tavarez Primary Care Provider +1 [phone] Encounter Details Date Type Department Care Team (Late st Contact Info) Description 09/26/2006 Outpatient Historical [facility] Family Medicine Danita Belle [address] [facility] [address] [place] [address] [place] [address] [facility] [facility] [address] [place] [address] Social History Tobacco Use Types Packs/Day Years Used Date Smoking Tobacco: Never Assessed Comments Unknown Sex and Gender Information Value Date Recorded Sex Assigned at Female 04/12/2024 1:48 AM CDT Legal Sex Female 4:34 AM REHABILITATION COUNSELOR Gender Identity Female 04/12/2024 1:48 AM CDT Sexual Orientation Not on file documented as of this encounter Last Filed Vital Signs Vital Sign Reading Time Taken Comments Blood Pressure 120/80 09/26/2006 2:15 PM REHABILITATION COUNSELOR Pulse 74 09/26/2006 2:15 PM REHABILITATION COUNSELOR Temperature - - Respiratory Rate - - Oxygen Saturation - - Inhaled Oxygen Concentration - - Weight 73.5 kg (162 lb) 09/26/2006 2:15 PM REHABILITATION COUNSELOR Height - - Body Mass Index - - documented in this encounter Plan of Treatment Not on file documented as of this encounter Visit Diagnoses Not on filedocumented in this encounter Care Teams Dyehouse Worker Relationship Specialty Start Date End Date Shima Tavarez FNP [address] [place] [address] PCP - General 12/28/20 documented as of this encounter
--- OUTSIDE RECORDS SUMMARY | 2025-07-24 08:01 | XMS_ITS | Encounter Summary ---
Author Organization [facility] Address [address] [place] [address] Care Team Providers Care Mill Representative Name Role Phone Shima Tavarez Primary Care Provider +1 [phone] Encounter Details Date Type Department Care Team (Late st Contact Info) Description 12/20/2005 Emergency [facility] EMERGENCY ROOM STHolly Zamarripa MD NO ADDRESS ON FILE Er, Authorized P NO ADDRESS ON FILE Abdominal Pain, Right Upper Quadrant (Primary Dx) Social History Tobacco Use Types Packs/Day Years Used Date Smoking Tobacco: Never Assessed Comments Unknown Sex and Gender Information Value Date Recorded Sex Assigned at Female 04/12/2024 1:48 AM CDT Legal Sex Female 4:34 AM COPY MANAGER Gender Identity Female 04/12/2024 1:48 AM CDT Sexual Orientation Not on file documented as of this encounter Plan of Treatment Not on file documented as of this encounter Visit Diagnoses Diagnosis Abdominal pain, right upper quadrant- Primary documented in this encounter Care Teams Mill Representative Relationship Specialty Start Date End Date Shima Tavarez FNP [address] [place] [phone] PCP - General 12/28/20 documented as of this encounter
--- OUTSIDE RECORDS SUMMARY | 2025-07-24 08:01 | XMS_ITS | Encounter Summary ---
Author Organization [facility] Address [address] [place] [address] Care Team Providers Care Peoplesoft Developer Name Role Phone Shima Tavarez HOME ENERGY RATER Primary Care Provider +1 [phone] Encounter Details Date Type Department Care Team (Late st Contact Info) Description 10/15/2004 Outpatient Historical [facility] Family Medicine [facility] [address] [facility] [address] [place] [address] Peyton Smart MD [address] [place] [address] Social History Tobacco Use Types Packs/Day Years Used Date Smoking Tobacco: Never Assessed Comments Unknown Sex and Gender Information Value Date Recorded Sex Assigned at Female 04/12/2024 1:48 AM CDT Legal Sex Female 4:34 AM TRANSITIONAL CARE LIAISON Gender Identity Female 04/12/2024 1:48 AM CDT Sexual Orientation Not on file documented as of this encounter Last Filed Vital Signs Vital Sign Reading Time Taken Comments Blood Pressure 112/78 10/15/2004 4:10 PM TRANSITIONAL CARE LIAISON Pulse 90 10/15/2004 4:10 PM TRANSITIONAL CARE LIAISON Temperature 37.4 C (99.3 F) 10/15/2004 4:10 PM TRANSITIONAL CARE LIAISON Respiratory Rate 18 10/15/2004 4:10 PM TRANSITIONAL CARE LIAISON Oxygen Saturation - - Inhaled Oxygen Concentration - - Weight 58.5 kg (129 lb) 10/15/2004 4:10 PM TRANSITIONAL CARE LIAISON Height 161.3 cm (5' 3.5 ) 10/15/2004 4:10 PM TRANSITIONAL CARE LIAISON Body Mass Index 22.49 10/15/2004 4:10 PM TRANSITIONAL CARE LIAISON Body Mass Index Percentile 80.27% 10/15/2004 4:1 0 PM TRANSITIONAL CARE LIAISON Growth Chart: [facility] (Girls, 2- 20 Years) documented in this encounter Plan of Treatment Not on file documented as of this encounter Visit Diagnoses Not on filedocumented in this encounter Care Teams Peoplesoft Developer Relationship Specialty Start Date End Date Shima Tavarez FNP [address] [place] [phone] PCP - General 12/28/20 documented as of this encounter
--- OUTSIDE RECORDS SUMMARY | 2025-07-24 08:01 | XMS_ITS | Encounter Summary ---
Author Organization [facility] Address [address] [place] [address] Care Team Providers Care Plating Tank Operator Name Role Phone Shima Tavarez Primary Care Provider +1 -[phone] Encounter Details Date Type Department Care Team [...] AM CDT Legal Sex Female 4:34 AM LOUVER DOOR ASSEMBLER Gender Identity Female 04/12/2024 1:48 AM CDT Sexual Orientation Not on file documented as of this encounter Plan of Treatment Not on file documented as of this encounter Visit Diagnoses Diagnosis Unspecified asthma, with exacerbation- Primary documented in this encounter Care Teams Plating Tank Operator Relationship Specialty Start Date End Date Shima Tavarez FNP [address] [facility] [place] [phone] PCP - General 12/28/20 documented as of this encounter
--- OUTSIDE RECORDS SUMMARY | 2025-07-24 08:01 | XMS_ITS | Encounter Summary ---
Author Organization [facility] Address 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
--- OUTSIDE RECORDS SUMMARY | 2025-07-24 08:01 | XMS_ITS | Encounter Summary ---
Author Organization [facility] Address [address] [place] [address] Care Team Providers Care Esthetician Makeup Artist Name Role Phone Shima Tavarez Primary Care Provider +1 -[phone] Encounter Details Date Type Department Care Team (Late st Contact Info) Description 10/01/2007 Outpatient Historical [facility] Family Medicine Danita Belle [address] [place] [address] [place] [address] [place] [address] Social History Tobacco Use Types Packs/Day Years Used Date Smoking Tobacco: Never Assessed Comments Unknown Sex and Gender Information Value Date Recorded Sex Assigned at Female 04/12/2024 1:48 AM CDT 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
--- OUTSIDE RECORDS SUMMARY | 2025-07-24 08:01 | XMS_ITS | Encounter Summary ---
Author Organization [facility] Address [address] [place] [address] Care Team Providers Care Engagement Manager Name Role Phone Shima Tavarez Primary Care Provider +1 -[phone] Encounter Details Date Type Department Care Team (Late st Contact Info) Description 04/21/2004 Emergency [facility]GENCY [facility] Angela Lauren MD [address] [place] [address] Er, Authorized P NO ADDRESS ON FILE ACUTE URI NOS (Primary Dx) Social History Tobacco Use Types Packs/Day Years Used Date Smoking Tobacco: Never Assessed Comments Unknown Sex and Gender Information Value Date Recorded Sex Assigned at Female 04/12/2024 1:48 AM CDT Legal Sex Female 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
--- OUTSIDE RECORDS SUMMARY | 2025-07-24 08:01 | XMS_ITS | Encounter Summary ---
Author Organization [facility] Address [address] [facility] Attn: [place] [address] Care Team Providers Care Christian Ministries Professor Name Role Phone Shima Tavarez GRINDER SET UP OPERATOR CENTERLESS Primary Care Provider +1 -[phone] Encounter Details Date Type Department Care Team (Latest Contact Info) Description 11/04/2005 Orders Only Thalia Rendon MD [address] [place] [phone] Social History Tobacco Use Types Packs/Day Years Used Date Smoking Tobacco: Never Assessed Comments Unknown Sex and Gender Information Value Date Recorded Sex Assigned at Female 04/12/2024 1:48 AM CDT Legal Sex Female 4:34 AM SQUAD BOSS Gender Identity Female 04/12/2024 1:48 AM CDT Sexual Orientation Not on file documented as of this encounter Progress Notes * [facility] Conv Transcriptions - 05/09/2008 12:37 AM CDT NURSE NAME: JalenRenan Marleny VITALS: TEMP: 96.4??f Oral RESPIRATIONS: 12. WEIGHT: 104lbs CHIEF COMPLAINT: ear pain This information was actually from Janie's sister Mirta who was an add on. vr This should be deleted. There is a full note for her. 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 LAB ORDERS: Order number: [id number] Test Ordered: STREPTOCOCCUS, GROUP A CULTURE 4485 Order number: [id number] Test Ordered: RAPID STREP [id number] RETURN VISIT: Instructed to call if not improving. 11/05/05 01:03 p Electronically signed by Thalia Rendon MD. TEACHING PHYSICIAN COMMENTS: I have reviewed the resident's note and I agree with the resident's evaluation and plan.ELYSIA Electronically Signed by: Haile Hernández MD on Tuesday, November 15, 2005 documented in this encounter Plan of Treatment Not on file documented as of this encounter Visit Diagnoses Not on filedocumented in this encounter Care Teams Christian Ministries Professor Relationship Specialty Start Date End Date Shima Tavarez FNP [address] [place] [address] PCP - General 12/28/20 documented as of this encounter
--- OUTSIDE RECORDS SUMMARY | 2025-07-24 08:01 | XMS_ITS | Encounter Summary ---
Author Organization [facility] Address [address] [place] [address] Care Team Providers Care Electricity Trader Name Role Phone Shima Tavarez Primary Care Provider +1 -[phone] Encounter Details Date Type Department Care Team (Late st Contact Info) Description 10/01/2007 Outpatient Historical [facility] Family Medicine Danita Belle [address] [place] [address] [place] [address] [place] [address] Social History Tobacco Use Types Packs/Day Years Used Date Smoking Tobacco: Never Assessed Comments Unknown Sex and Gender Information Value Date Recorded Sex Assigned at Female 04/12/2024 1:48 AM CDT 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
--- OUTSIDE RECORDS SUMMARY | 2025-07-24 08:01 | XMS_ITS | Encounter Summary ---
Author Organization [facility] Address [address] [place] [address] Care Team Providers Care Infusion Therapy Nurse Name Role Phone Shima Tavarez [facility] Primary Care Provider +1 -[phone] Encounter Details Date Type Department Care Team (Late st Contact Info) Description 11/09/2004 Emergency [facility] EMERGENCY RO[facility] Jose Armando Grant MD NO ADDRESS ON FILE Er, Authorized P NO ADDRESS ON FILE FEMALE GENITAL SYMPTOMS NOS (Primary Dx) Social History Tobacco Use Types Packs/Day Years Used Date Smoking Tobacco: Never Assessed Comments Unknown Sex and Gender Information Value Date Recorded Sex Assigned at Female 04/12/2024 1:48 AM CDT Legal Sex Female 4:34 AM SUPERVISOR SAFETY DEPOSIT Gender Identity Female 04/12/2024 1:48 AM CDT [...] CBC WITH DIFFERENTIAL (11/09/2004 9:39 PM CDT) [facility] NEUTROPHIL ABSOLUTE 4.00 K/uL INTERFACE SYSTEM LYMPHOCYTE [...] INTERFA CE SYSTEM 11/09/2004 9:39 PM CDT Jose Armando Grant MD HEMATOLOGY ORDERABLES Final Result Performing Organization Address [facility] Phone Number INTERFACE SYSTEM Refer to clinic/hospital department * CBC WITH DIFFERENTIAL (11/09/2004 9:39 PM CDT) NRBC 0 <=0 /100 WBC INTERFACE SYSTEM 11/09/2004 9:39 PM CDT Jose Armando Grant MD HEMATOLOGY ORDERABLES Final Result Performing Organization Address [facility] Phone Number INTERFACE SYSTEM Refer to clinic/hospital [...] fL INTERFACE SYSTEM 11/09/2004 9:39 PM CDT Jose Armando Grant MD HEMATOLOGY ORDERABLES Final Result Performing Organization Address [facility] Phone Number INTERFACE SYSTEM Refer to clinic/hospital department documented in this encounter Visit Diagnoses Diagnosis Unspecified symptom associated with female genital organs- Primary documented in this encounter Care Teams Infusion Therapy Nurse Relationship Specialty Start Date End Date Shima Tavarez, ROXIE [address] [place] [phone] PCP - General 12/28/20 documented as of this encounter
[2025-07-24 08:17] VITALS: BP 128/87; PULSE 65; O2SAT 98
[2025-07-24 09:43] LABS: Coronavirus 229E,HKU1,NL63,OC4 Not Detected (NOT DETECT); Parainfluenza Virus Type 1 Not Detected (NOT DETECT); Parainfluenza Virus Type 2 Not Detected (NOT DETECT); Parainfluenza Virus Type 3 Not Detected (NOT DETECT); Parainfluenza Virus Type 4 Not Detected (NOT DETECT); SARS-COV-2 Not Detected (NOT DETECT)
== END 2025-07-24 08:18 | disposition home or self-care (01) ==
PROVIDERS: Emergency Provider Emergency Medicine; PCP Family Medicine
DX: J06.9 Acute upper respiratory infection, unspecified (principal); Z11.52 Encounter for screening for COVID-19; O26.891 Other specified pregnancy related conditions, first trimester; Z3A.12 12 weeks gestation of pregnancy; F17.210 Nicotine dependence, cigarettes, uncomplicated
CPT/HCPCS: 87486; 87581; 87633; 99283; J8540